=== PATIENT | male | born 1935 | race Caucasian/White ===

== ENCOUNTER → 2016-07-30 | Outpatient (CLI) | payer OTHER ==
[~2016-07-30] MED LIST: AMLO5TAB2 PO; AMOX1TAB42 PO; ASPI-232 PO; B-CO1CAP17 PO; B-COCAP2 PO; DIPH25CA65 PO; HYDR-5688 PO; HYDR1OIN EXT; INSDGIPEN SQ; INSUINJ4 SC; LIDO1CRE24 TOP; LIDO1CRE58 TOP; LPT/20 PO; METO-217 PO; MULT-190 PO; NVLGI/PEN SC; NVLGI/PEN SQ; OXYC-57 PO; PRED10TA PO; SODI650T8 PO; TPRSR/50 PO; ZNTT/150 PO
[2016-07-30 16:58] LABS: CHOLESTEROL/HDL RATIO 4.5; THYROID STIMULATING HORMONE 1.24 uIu/ml (0.300-4.500)
== END | disposition home or self-care (01) ==
LOC: C.LABBFT 16:27
PROVIDERS: ATTEND Nurse Practitioner Family
DX: E11.9 Type 2 diabetes mellitus without complications (principal)

== ENCOUNTER 2017-01-23 21:24 | Inpatient (IN) | payer OTHER ==
[~2017-01-23] VITALS: Ht 175.3 cm; Wt 102.9 kg
[~2017-01-23 21:24] MED LIST changes: -AMLO5TAB2 PO; -AMOX1TAB42 PO; -ASPI-232 PO; -B-CO1CAP17 PO; -DIPH25CA65 PO; -HYDR-5688 PO; -HYDR1OIN EXT; -INSDGIPEN SQ; -LIDO1CRE58 TOP; -METO-217 PO; -MULT-190 PO; -NVLGI/PEN SC; -NVLGI/PEN SQ; -PRED10TA PO; -SODI650T8 PO; -TPRSR/50 PO; -ZNTT/150 PO
[2017-01-23] MEDS ORDERED: ONDANSETRON 8 MG/54 ML D5W IV ONE (22:00)
[2017-01-23] MEDS: HYDROmorphone INJ 0.5 MG/0.5 ML SYR IV PRN (22:10)
[2017-01-23 23:00] LABS: BASO % 0.2 %; BASO ABS # 0.03 K/uL (0-0.2); COMPLETE YES; EOS % 0.3 %; HEMATOCRIT 31.5 % (42-52); IG% 0.4 %; LYMPH % 6.3 %; LYMPH ABS # 1.18 K/uL (1.2-3.4); MEAN CORPUSCULAR HEMOGLOBIN 30.4 pg (25-34); MEAN CORPUSCULAR HGB CONC 32.4 g/dl (32-36); MEAN PLATELET VOLUME 11.1 fL (7.4-10.4); MONO % 8.6 %; NEUT % 84.2 %; PLATELET COUNT 230 K/uL (130-400); RED BLOOD COUNT 3.35 M/uL (4.7-6.1); WHITE BLOOD COUNT 18.63 K/uL (4.8-10.8)
--- NOTE | 2017-01-23 23:04 | DIAGNOSTIC IMAGING REPORT ---
CT OF THE ABDOMEN AND PELVIS WITHOUT CONTRAST CLINICAL HISTORY: Dialysis pt with sudden RLQ abd pain, + guarding , rebound. COMPARISON STUDY: Renal ultrasound August 12, 2010. TECHNIQUE: Axial images of the abdomen and pelvis were obtained without IV contrast. Images were reviewed in the axial, sagittal, and coronal planes. FINDINGS: Evaluation of the abdomen and pelvis is suboptimal given the lack of IV and oral contrast. Note is made of branching gas adjacent to the IVC within the liver which is consistent with portal venous gas. This originates from the ascending colon. There is wall thickening with irregularity of the wall of the hepatic flexure of the colon shown image 179 of 451. There is adjacent venous gas shown on axial image 152 of 451. There is mild pericolonic infiltration. No abscess or free air is identified. Unenhanced images of the spleen and pancreas are unremarkable. There is a diverticulum of the second portion the duodenum. Bilateral renal lesions are suboptimally assessed on this exam. A 2.5 cm lesion arising from the upper pole of the right kidney measures just above water attenuation. This likely reflects a cyst. A few left renal lesions likely reflect cysts. There may be a hyperdense left renal cyst. There is no evidence for a bowel obstruction. There is extensive atherosclerotic plaque of the abdominal aorta. This is suboptimally assessed on unenhanced exam. No suspicious skeletal lesions are present. There is no lymphadenopathy. IMPRESSION: 1. Wall thickening of the ascending colon and hepatic flexure of the colon with small amount of associated mesenteric venous gas and portal venous gas. Apparent focal thinning of the wall of the hepatic flexure. Overall, these findings are suspicious for ischemic colitis. Diverticulitis could appear similar but is considered less likely. Surgical consultation is recommended. Findings discussed with Dr. Smith at time of dictation. 2. Extensive atherosclerotic plaque of the abdominal aorta, suboptimally assessed on this unenhanced exam. Electronically signed by: Henri Dorantes M.D. 01/23/2017 11:03 PM Dictated Date/Time: 01/23/2017 10:39 PM
[2017-01-23 23:17] LABS: ALT/SGPT 21 U/L (12-78); BLOOD UREA NITROGEN 20 mg/dl (7-18); BUN/CREATININE RATIO 5.6 (10-20); CALCIUM 8.5 mg/dl (8.5-10.1); CARBON DIOXIDE 31 mmol/L (21-32); CHLORIDE 101 mmol/L (98-107); GLUCOSE 168 mg/dl (70-99); SODIUM 139 mmol/L (136-145)
[2017-01-23 23:20] LABS: ALKALINE PHOSPHATASE 92 U/L (45-117); AST/SGOT 13 U/L (15-37)
[2017-01-24] MEDS ORDERED: PIPERACILLIN/TAZOBACTAM 4.5 GM/100ML D5W IV STA (00:54)
[2017-01-24] MEDS: HYDROmorphone INJ 0.5 MG/0.5 ML SYR IV PRN ×3 (01:18→15:43)
[2017-01-24] MEDS ORDERED: ACETAMINOPHEN 325 MG TAB PO PRN (02:15)
[2017-01-24] MEDS ORDERED: ONDANSETRON INJ 2 MG/ML 2 ML VIAL IV PRN (02:15)
[2017-01-24] MEDS ORDERED: DEXTROSE 50% 50 ML SYR IV PRN (02:15)
[2017-01-24] MEDS ORDERED: GLUCAGON FOR INJ 1 MG VIAL SQ PRN (02:15)
[2017-01-24] MEDS ORDERED: GLUCOSE 10 TABS/TUBE PO PRN (02:15)
[2017-01-24] MEDS ORDERED: GLUCOSE 40% GEL 15 GM TUBE PO PRN (02:15)
[2017-01-24] MEDS ORDERED: PIPERACILL/TAZOBAC CONSULT ACTIVE PRN (03:00)
[2017-01-24 03:19] VITALS: BP 176/96; PULSE 95; TEMP 36.9; O2SAT 95; Ht 175.3 cm; Wt 102.9 kg
--- NOTE | 2017-01-24 03:27 | EMERGENCY ROOM VISIT NOTE ---
History Report prepared by Devon: Amy Rae Under the Supervision of: Dr. Reji Smith M.D. First contact with patient: 21:28 Chief Complaint: ABDOMINAL PAIN Stated Complaint: AB PAIN Nursing Triage Summary: Pt started with abdominal pain/nausea since this afternoon. C/o right lower quadrant abdominal pain. Pt says he has been eating and drinking "on/off" the past few days. Pt had dialysis today History of Present Illness The patient is a 81 year old male who presents to the Emergency Room with complaints of constant right lower quadrant abdominal pain beginning 6 hours prior to arrival. He rates the pain at a 9/10. The patient states that he was not doing anything that would have prompted the pain. He reports that he had dialysis today. The patient also complains of back pain. He has a history of kidney stones and end stage renal disease. Pt denies LOC, headache, fevers, chills, diaphoresis, visual changes, neck pain, chest pain, breathing difficulties, nausea, vomiting, melena, hematochezia, urinary symptoms, numbness , weakness, lymphadenopathy, rash, or other complaints. Source of History: patient Onset: 6 hours prior to arrival Position: abdomen (RLQ) Symptom Intensity: rated at a 9/10 Timing: constant Associated Symptoms: + back pain Review of Systems See HPI for pertinent positives and negatives. A total of ten systems were reviewed and were otherwise negative. Past Medical & Surgical Medical Problems: (1) ESRD on hemodialysis (2) Ischemic colitis (3) No known allergies (4) No known health problems Family History No pertinent family history Social History Smoking Status: Current Every Day Smoker Alcohol Use: occasionally Marital Status: Current/Historical Medications Scheduled Amlodipine Besylate (Norvasc), 5 MG PO QPM Aspirin (Aspir-81), 81 MG PO QAM Atorvastatin (Atorvastatin Calcium), 20 MG PO HS Insulin Aspart (Novolog Flexpen), 18 UNITS SC QAM Insulin Aspart (Novolog Flexpen), 19 UNITS SQ LUNCH Insulin Aspart (Novolog Flexpen), 22 UNITS SQ QPM Insulin Glargine (Lantus Solostar), 35-45 UNITS SQ QPM Lidocaine-Prilocaine (Emla), 1 APPLN TOP UD Metoprolol Succinate (Toprol Xl), 50 MG PO QPM Ocuvite Preservision (Ocuvite Preservision), 1 TAB PO BID Sodium Bicarbonate (Antacid) (Sodium Bicarbonate), 1 TAB PO BIDM Vitamin B Cmplx/Vitc/Folic Ac (Nephrocaps), 1 CAP PO QPM Scheduled PRN Oxycodone/Acetaminophen 5MG/325MG (Percocet 5MG/325MG), 1-2 TABLETS PO HS PRN for Pain Allergies Coded Allergies: No Known Allergies (Unverified , 03/21/16) Physical Exam Vital Signs Date Time Temp Pulse Resp B/P (MAP) Pulse Ox O2 Delivery O2 Flow Rate FiO2 01/24/17 01:10 78 16 132/76 96 Room Air 01/23/17 23:19 75 18 104/56 95 Room Air 01/23/17 21:34 71 01/23/17 21:25 36.6 71 18 103/55 96 Room Air Physical Exam GENERAL: Awake, alert, well-appearing, in no distress HENT: Normocephalic, atraumatic. Oropharynx unremarkable. EYES: Normal conjunctiva. Sclera non-icteric. NECK: Supple. No nuchal rigidity. FROM. No JVD. RESPIRATORY: Clear to auscultation. CARDIAC: Regular rate, normal rhythm. Extremities warm and well perfused. Pulses equal. ABDOMEN: Soft, non-distended. Tenderness to RLQ. No rebound. Guarding to RLQ. No masses. Positive Rovsing's sign. RECTAL: Deferred. MUSCULOSKELETAL: Chest examination reveals no tenderness. The back is symmetrical on inspection without obvious abnormality. There is no CVA tenderness to palpation. No joint edema. LOWER EXTREMITIES: Calves are equal size bilaterally and non-tender. No edema. No discoloration. NEURO: Normal sensorium. No sensory or motor deficits noted. SKIN: No rash or jaundice noted. Medical Decision & Procedures ER Provider Diagnostic Interpretation: 2312: Radiology results as stated below per my review and radiologist interpretation CT OF THE ABDOMEN AND PELVIS WITHOUT CONTRAST CLINICAL HISTORY: Dialysis pt with sudden RLQ abd pain, + guarding , rebound. COMPARISON STUDY: Renal ultrasound August 12, 2010. TECHNIQUE: Axial images of the abdomen and pelvis were obtained without IV contrast. Images were reviewed in the axial, sagittal, and coronal planes. FINDINGS: Evaluation of the abdomen and pelvis is suboptimal given the lack of IV and oral contrast. Note is made of branching gas adjacent to the IVC within the liver which is consistent with portal venous gas. This originates from the ascending colon. There is wall thickening with irregularity of the wall of the hepatic flexure of the colon shown image 179 of 451. There is adjacent venous gas shown on axial image 152 of 451. There is mild pericolonic infiltration. No abscess or free air is identified. Unenhanced images of the spleen and pancreas are unremarkable. There is a diverticulum of the second portion the duodenum. Bilateral renal lesions are suboptimally assessed on this exam. A 2.5 cm lesion arising from the upper pole of the right kidney measures just above water attenuation. This likely reflects a cyst. A few left renal lesions likely reflect cysts. There may be a hyperdense left renal cyst. There is no evidence for a bowel obstruction. There is extensive atherosclerotic plaque of the abdominal aorta. This is suboptimally assessed on unenhanced exam. No suspicious skeletal lesions are present. There is no lymphadenopathy. IMPRESSION: 1. Wall thickening of the ascending colon and hepatic flexure of the colon with small amount of associated mesenteric venous gas and portal venous gas. Apparent focal thinning of the wall of the hepatic flexure. Overall, these findings are suspicious for ischemic colitis. Diverticulitis could appear similar but is considered less likely. Surgical consultation is recommended. Findings discussed with Dr. Smith at time of dictation. 2. Extensive atherosclerotic plaque of the abdominal aorta, suboptimally assessed on this unenhanced exam. Electronically signed by: Henri Dorantes M.D. 01/23/2017 11:03 PM Dictated Date/Time: 01/23/2017 10:39 PM Laboratory Results 01/23/17 22:49 Red Blood Count 3.35, Mean Corpuscular Volume 94.0, Mean Corpuscular Hemoglobin 30.4, Mean Corpuscular Hemoglobin Concent 32.4, Mean Platelet Volume 11.1, Neutrophils (%) (Auto) 84.2, Lymphocytes (%) (Auto) 6.3, Monocytes (%) (Auto) 8.6, Eosinophils (%) (Auto) 0.3, Basophils (%) (Auto) 0.2, Neutrophils # (Auto) 15.68, Lymphocytes # (Auto) 1.18, Monocytes # (Auto) 1.61, Eosinophils # (Auto) 0.05, Basophils # (Auto) 0.03 01/23/17 22:49 Test 01/23/17 22:49 01/23/17 23:17 White Blood Count 18.63 K/uL (4.8-10.8) Red Blood Count 3.35 M/uL (4.7-6.1) Hemoglobin 10.2 g/dL (14.0-18.0) Hematocrit 31.5 % (42-52) Mean Corpuscular Volume 94.0 fL (80-100) Mean Corpuscular Hemoglobin 30.4 pg (25-34) Mean Corpuscular Hemoglobin Concent 32.4 g/dl (32-36) Platelet Count 230 K/uL (130-400) Mean Platelet Volume 11.1 fL (7.4-10.4) Neutrophils (%) (Auto) 84.2 % Lymphocytes (%) (Auto) 6.3 % Monocytes (%) (Auto) 8.6 % Eosinophils (%) (Auto) 0.3 % Basophils (%) (Auto) 0.2 % Neutrophils # (Auto) 15.68 K/uL (1.4-6.5) Lymphocytes # (Auto) 1.18 K/uL (1.2-3.4) Monocytes # (Auto) 1.61 K/uL (0.11-0.59) Eosinophils # (Auto) 0.05 K/uL (0-0.5) Basophils # (Auto) 0.03 K/uL (0-0.2) RDW Standard Deviation 56.3 fL (36.4-46.3) RDW Coefficient of Variation 16.3 % (11.5-14.5) Immature Granulocyte % (Auto) 0.4 % Immature Granulocyte # (Auto) 0.08 K/uL (0.00-0.02) Anion Gap 7.0 mmol/L (3-11) Est Creatinine Clear Calc Drug Dose 20.0 ml/min Estimated GFR () 17.6 Estimated GFR (Non- 15.1 BUN/Creatinine Ratio 5.6 (10-20) Calcium Level 8.5 mg/dl (8.5-10.1) Total Bilirubin 0.3 mg/dl (0.2-1) Direct Bilirubin < 0.1 mg/dl (0-0.2) Aspartate Amino Transf (AST/SGOT) 13 U/L (15-37) Alanine Aminotransferase (ALT/SGPT) 21 U/L (12-78) Alkaline Phosphatase 92 U/L (45-117) Total Protein 7.0 gm/dl (6.4-8.2) Albumin 3.3 gm/dl (3.4-5.0) Lipase 198 U/L (73-393) Bedside Lactic Acid Venous 1.18 mmol/L (0.90-1.70) Laboratory results reviewed by me Medications Administered Medications (Trade) Dose Ordered Sig/Brennan Route Start Time Stop Time Status Last Admin Dose Admin Hydromorphone HCl (Dilaudid Inj) 0.5 mg Q20M PRN IV 01/23/17 22:00 02/06/17 21:59 01/24/17 01:18 0.5 MG Ondansetron HCl (Zofran 8mg Iv) 8 mg NOW ONCE IV 01/23/17 22:00 01/23/17 22:01 DC 01/23/17 22:09 8 MG Piperacillin Sod/ Tazobactam Sod (Zosyn Iv) 4.5 gm NOW STAT IV 01/24/17 00:54 01/24/17 00:55 DC 01/24/17 01:17 4.5 GM ECG Indication: abdominal pain Rate (beats per minute): 73 Rhythm: normal sinus Findings: nonspecific-ST abn, left axis deviation, other (nonspecific intraventricular block) ED Course 2146: The patient was evaluated in room A2. A complete history and physical exam was performed. 2199: Ordered Ondansetron HCl 8 mg IV, Dilaudid Inj 0.5 mg IV. 0: Discussed the patient's case with Dr. Dorantes. The patient will be evaluated for further treatment and disposition. 4: Ordered Zosyn Iv 4.5 gm IV. 0114: Discussed the patient's case with Dr. Rolon. The patient will be evaluated for further treatment and disposition. Medical Decision Medication Reconciliation: I attest that I have personally reviewed the patient' s current medication list Patient was found to have a slightly elevated blood pressure due to circumstances. I do not believe that the patient requires hypertension monitoring. Triage Nursing notes reviewed. The patient's presentation and history were concerning for abdominal pain. Etiologies such as appendicitis, diverticulitis, obstruction, inflammatory bowel disease, renal colic, PUD, biliary pathology, pancreatitis, mesenteric ischemia, aortic pathology, infections, genitourinary, UTI, perforated viscus, as well as others were entertained. The patient was evaluated. He was uncomfortable. He was given Zofran and Dilaudid. The patient had blood work obtained. She was sent for CT imaging. CT imaging was concerning for ischemic colitis as the likely diagnosis. I did discuss this with Dr. Dorantes radiology. The patient had a significant leukocytosis on CBC. His creatinine was elevated consistent with his end-stage renal disease. The patient was given a dose of IV Zosyn given the situation and the gas in the portal venous system. Consultation was made with internal medicine. Discussed the case withDr. Bay Rolon. He evaluated patient in the Emergency Room and admitted him for further treatment. Consults Time Called: [phone] Consulting Physician: Dr. Dorantes Returned Call: [phone] Discussed the patient's case. The patient will be evaluated for further treatment and disposition. Additional Consults: Time Called: 010 Consulted Physician: Dr. Rolon[facility] Returned Call: 011 Additional Comments: Discussed the patient's case. The patient will be evaluated for further treatment and disposition. Impression Primary Impression: Ischemic colitis Additional Impression: Right sided abdominal pain Scribe Attestation The scribe's documentation has been prepared under my direction and personally reviewed by me in its entirety. I confirm that the note above accurately reflects all work, treatment, procedures, and medical decision making performed by me. Departure Information Dispostion Being Evaluated By Hospitalist Referrals Reji Cameron M.D. (PCP) Patient Instructions My [facility] Problem Qualifiers
[2017-01-24] MEDS ORDERED: PNEUMOCOCCAL ADMINISTRATION CHARGE ONE (04:30)
[2017-01-24] MEDS ORDERED: PNEUMOCOCCAL POLYSACCHARIDES 25 MCG/0.5 ML VIAL/SYR IM. ONE (04:30)
--- NOTE | 2017-01-24 05:12 | History and Physical ---
History & Physical Date & Time of Service: Jan 24, 2017 at 04:57 Chief Complaint: Esrd On Hemodialysis,Ischemic Colitis Primary Care Physician: Reji Cameron M.D. History of Present Illness Source: patient The patient is a 81-year-old male who presents emergency department with constant right lower quadrant abdominal pain began about 6 hours prior to arrival. He did have dialysis earlier today. He has history of kidney stones. He did not have any different than for her food intake than usual. He has not had any blood in stool, any change in bowel frequency or character. He denies fevers or chills. He also reports that he has right lower back pain. Past Medical/Surgical History Medical Problems: (1) No known allergies Status: Chronic (2) No known health problems Status: Chronic Family History No pertinent family history Social History Smoking Status: Current Every Day Smoker Smokeless Tobacco Use: No Alcohol Use: none Drug Use: none Marital Status: Housing status: lives with family Occupational Status: retired Multi-Drug Resistant Organisms History of MDRO: No Allergies Coded Allergies: No Known Allergies (Unverified , 03/21/16) Home Medications Scheduled Amlodipine Besylate (Norvasc), 5 MG PO QPM Aspirin (Aspir-81), 81 MG PO QAM Atorvastatin (Atorvastatin Calcium), 20 MG PO HS Insulin Aspart (Novolog Flexpen), 18 UNITS SC QAM Insulin Aspart (Novolog Flexpen), 19 UNITS SQ LUNCH Insulin Aspart (Novolog Flexpen), 22 UNITS SQ QPM Insulin Glargine (Lantus Solostar), 35-45 UNITS SQ QPM Lidocaine-Prilocaine (Emla), 1 APPLN TOP UD Metoprolol Succinate (Toprol Xl), 50 MG PO QPM Ocuvite Preservision (Ocuvite Preservision), 1 TAB PO BID Sodium Bicarbonate (Antacid) (Sodium Bicarbonate), 1 TAB PO BIDM Vitamin B Cmplx/Vitc/Folic Ac (Nephrocaps), 1 CAP PO QPM Scheduled PRN Oxycodone/Acetaminophen 5MG/325MG (Percocet 5MG/325MG), 1-2 TABLETS PO HS PRN for Pain Review of Systems The patient denies chest pain, palpitations, shortness of breath, cough, lower extremity swelling, sore throat, fevers, chills, sweats, weight change, fatigue , nausea, vomiting, blood in urine or stool, dysuria, urinary frequency or urgency, lightheadedness, dizziness, headache, memory loss, rash, abnormal bruising or bleeding, imbalance, focal or generalized weakness, numbness or tingling in arms or legs, arthralgias or myalgias, night sweats, or allergy symptoms. The review of systems is otherwise negative other than for that already noted above, and at least 10 systems have been reviewed. Physical Exam Vital Signs Date Time Temp Pulse Resp B/P (MAP) Pulse Ox O2 Delivery O2 Flow Rate FiO2 01/24/17 03:19 36.9 95 20 176/96 95 Nasal Cannula 2.0 01/24/17 02:28 78 16 108/63 96 01/24/17 01:10 78 16 132/76 96 Room Air 01/23/17 23:19 75 18 104/56 95 Room Air 01/23/17 21:34 71 01/23/17 21:25 36.6 71 18 103/55 96 Room Air The patient is awake, well-developed and adequately nourished, alert and oriented 3, normocephalic and atraumatic, lying in bed and in no acute distress. HEENT--PERRL, EOMI, mucous membranes and oropharynx dry. Neck--supple, no JVD or bruits, thyroid normal, trachea midline, no adenopathy. Heart--normal S1 and S2, no extra beats, no murmurs, rubs or gallops. Lungs--clear bilaterally, diminished throughout, no respiratory distress, no accessory muscle use. Abdomen--normal bowel sounds and soft, tender right lower quadrant ,nondistended , no hernias or masses, no organomegaly. Extremities--no cyanosis, clubbing or edema. There are good distal pulses b/l. Dermatologic--normal skin turgor, normal color, warm and dry, no abnormal lymph nodes, no rash. Neurologic--cranial nerves II through XII grossly intact. Rheumatologic--normal range of motion, nontender, muscles and joints. Psychiatric--normal affect. Diagnostics Laboratory Results Results Past 24 Hours Test 01/23/17 22:49 01/23/17 23:17 Range/Units White Blood Count 18.63 4.8-10.8 K/uL Red Blood Count 3.35 4.7-6.1 M/uL Hemoglobin 10.2 14.0-18.0 g/dL Hematocrit 31.5 42-52 % Mean Corpuscular Volume 94.0 80-100 fL Mean Corpuscular Hemoglobin 30.4 25-34 pg Mean Corpuscular Hemoglobin Concent 32.4 32-36 g/dl Platelet Count 230 130-400 K/uL Mean Platelet Volume 11.1 7.4-10.4 fL Neutrophils (%) (Auto) 84.2 % Lymphocytes (%) (Auto) 6.3 % Monocytes (%) (Auto) 8.6 % Eosinophils (%) (Auto) 0.3 % Basophils (%) (Auto) 0.2 % Neutrophils # (Auto) 15.68 1.4-6.5 K/uL Lymphocytes # (Auto) 1.18 1.2-3.4 K/uL Monocytes # (Auto) 1.61 0.11-0.59 K/uL Eosinophils # (Auto) 0.05 0-0.5 K/uL Basophils # (Auto) 0.03 0-0.2 K/uL RDW Standard Deviation 56.3 36.4-46.3 fL RDW Coefficient of Variation 16.3 11.5-14.5 % Immature Granulocyte % (Auto) 0.4 % Immature Granulocyte # (Auto) 0.08 0.00-0.02 K/uL Sodium Level 139 136-145 mmol/L Potassium Level 4.0 3.5-5.1 mmol/L Chloride Level 101 98-107 mmol/L Carbon Dioxide Level 31 21-32 mmol/L Anion Gap 7.0 3-11 mmol/L Blood Urea Nitrogen 20 7-18 mg/dl Creatinine 3.60 0.60-1.40 mg/dl Est Creatinine Clear Calc Drug Dose 20.0 ml/min Estimated GFR () 17.6 Estimated GFR (Non- 15.1 BUN/Creatinine Ratio 5.6 10-20 Random Glucose 168 70-99 mg/dl Calcium Level 8.5 8.5-10.1 mg/dl Total Bilirubin 0.3 0.2-1 mg/dl Direct Bilirubin < 0.1 0-0.2 mg/dl Aspartate Amino Transf (AST/SGOT) 13 15-37 U/L Alanine Aminotransferase (ALT/SGPT) 21 12-78 U/L Alkaline Phosphatase 92 45-117 U/L Total Protein 7.0 6.4-8.2 gm/dl Albumin 3.3 3.4-5.0 gm/dl Lipase 198 73-393 U/L Bedside Lactic Acid Venous 1.18 0.90-1.70 mmol/L Diagnostic Radiology Patient Name: SADIQ JACKSON Unit Number: [id number] Dictated: 01/23/172238 Transcribed: 01/23/172238 ARMAAN Printed Date/Time: [~ rep prt dt]/[~ rep prt tm] [~ rep ct labl] - [~ rep ct ivnm] [facility] [place] [address] Dictated: 01/23/172238 Transcribed: 01/23/172238 JA Printed Date/Time: [~ rep prt dt]/[~ rep prt tm] [~ rep ct labl] - [~ rep ct ivnm] [~ rep ct add3]] CT OF THE ABDOMEN AND PELVIS WITHOUT CONTRAST CLINICAL HISTORY: Dialysis pt with sudden RLQ abd pain, + guarding , rebound. COMPARISON STUDY: Renal ultrasound August 12, 2010. TECHNIQUE: Axial images of the abdomen and pelvis were obtained without IV contrast. Images were reviewed in the axial, sagittal, and coronal planes. FINDINGS: Evaluation of the abdomen and pelvis is suboptimal given the lack of IV and oral contrast. Note is made of branching gas adjacent to the IVC within the liver which is consistent with portal venous gas. This originates from the ascending colon. There is wall thickening with irregularity of the wall of the hepatic flexure of the colon shown image 179 of 451. There is adjacent venous gas shown on axial image 152 of 451. There is mild pericolonic infiltration. No abscess or free air is identified. Unenhanced images of the spleen and pancreas are unremarkable. There is a diverticulum of the second portion the duodenum. Bilateral renal lesions are suboptimally assessed on this exam. A 2.5 cm lesion arising from the upper pole of the right kidney measures just above water attenuation. This likely reflects a cyst. A few left renal lesions likely reflect cysts. There may be a hyperdense left renal cyst. There is no evidence for a bowel obstruction. There is extensive atherosclerotic plaque of the abdominal aorta. This is suboptimally assessed on unenhanced exam. No suspicious skeletal lesions are present. There is no lymphadenopathy. IMPRESSION: 1. Wall thickening of the ascending colon and hepatic flexure of the colon with small amount of associated mesenteric venous gas and portal venous gas. Apparent focal thinning of the wall of the hepatic flexure. Overall, these findings are suspicious for ischemic colitis. Diverticulitis could appear similar but is considered less likely. Surgical consultation is recommended. Findings discussed with Dr. Smith at time of dictation. 2. Extensive atherosclerotic plaque of the abdominal aorta, suboptimally assessed on this unenhanced exam. Electronically signed by: Henri Dorantes M.D. 01/23/2017 11:03 PM Dictated Date/Time: 01/23/2017 10:39 PM The status of this report is Signed. Draft = Not yet reviewed or approved by Radiologist. Signed = Reviewed and approved by Radiologist. <AttendingPhy></AttendingPhy> <FamilyPhy>Reji Cameron M.D.</FamilyPhy> < PrimaryPhy>Reji Cameron M.D.</PrimaryPhy> <UnitNumber>[id number]</UnitNumber> < VisitNumber>[id number]</VisitNumber> <PatientName>SADIQ JACKSON</PatientName > <DateOfBirth>1935</DateOfBirth> <Location>[facility]</Location> <ServiceDate> 01/23/17</ServiceDate> <MNE>ESINDI</MNE> <OrderingPhy>Reji Smith MD</ OrderingPhy> <OrderingPhyMNE>f rep ord dr purdy</OrderingPhyMNE> <DictatingPhyMNE> f rep dict dr purdy</DictatingPhyMNE> <CCListMNE>f rep ct gurwinder</CCListMNE> < AdmittingPhyMNE>f pt admit dr purdy</AdmittingPhyMNE> <AttendingPhyMNE>f pt attend dr purdy</AttendingPhyMNE> <ConsultingPhyMNE>f pt consult dr purdy</ConsultingPhyMNE> <FamilyPhyMNE>f pt fam dr purdy</FamilyPhyMNE> <OtherPhyMNE>f pt other dr purdy</OtherPhyMNE> < PrimaryPhyMNE>f pt prim care dr purdy</PrimaryPhyMNE> <ReferringPhyMNE>f pt referring dr purdy</ReferringPhyMNE> Impression Assessment and Plan Ischemic colitis involving the ascending colon and hepatic flexure-- the patient be admitted to the medical floor. Order mesenteric Dopplers to assess circulation. He'll be kept nothing by mouth except medications and sips of water. Place on Zosyn 3.375 mg IV every 8 hours, Zofran 4 mg IV every 6 hours when necessary. Normal saline at 60 ML's per hour. End-stage renal disease on dialysis/hypertension-hold amlodipine 5 mg by mouth every afternoon. Continue metoprolol succinate 50 mg by mouth every afternoon , and sodium bicarbonate 1 tablet by mouth twice a day. Hold Nephrocaps and aspirin. Consult his sign builder Dr. Peraza. Dialysis days are Wednesday, and Wednesday. Diabetes mellitus--reduce Lantus from 45 units subcutaneous every afternoon and 10 units subcutaneous twice a day. Hold standing orders for NovoLog 18 a.m., 19 lunch and [address]. Place on Accu-Cheks before meals and at bedtime with NovoLog coverage per scale. Hyperlipidemia--hold atorvastatin 20 mg daily at bedtime. Level of Care Med/Surg Advanced Directives Existing Advance Directive: No Existing Living Will: No Existing Power of Commercial Makeup Artist: No Resuscitation Status FULL RESUSCITATION VTE Prophylaxis VTE Risk Assessment Done? Y/N: Yes Risk Level: Moderate Given or contraindicated: SCD's
[2017-01-24] MEDS ORDERED: SODIUM CHLORIDE 0.9% 1000ML 1,000 ML IV SCH (05:15)
[2017-01-24] MEDS: PIPERACILL/TAZOBAC IV 3.375 GM in DEXTROSE 5% 100ML 100 ML IV SCH ×2 (05:43→17:25)
[2017-01-24] MEDS: INSULIN ASPART 100 UNITS/ML 3 ML PEN SC SCH ×3 (06:30→18:00)
[2017-01-24 07:17] VITALS: BP 109/66; PULSE 86; TEMP 36.8; O2SAT 97
[2017-01-24] MEDS ORDERED: SODIUM BICARBONATE 650 MG TAB PO SCH (08:00)
[2017-01-24] MEDS: CEROVITE ADV FORMULA TAB PO SCH ×2 (08:07→21:15)
[2017-01-24] MEDS ORDERED: PHARMACY GLYCEMIC MGMT CONSULT SCH (08:26)
--- NOTE | 2017-01-24 08:26 | DIAGNOSTIC IMAGING REPORT ---
DOPPLER ULTRASOUND OF THE MESENTERIC VASCULATURE CLINICAL HISTORY: Ischemic colitis. COMPARISON STUDY: Abdominal CT dated 01/23/2017. The abdominal aorta, celiac artery, and superior mesenteric artery are not visualized due to extensive overlying bowel gas. The examination is nondiagnostic. IMPRESSION: Nondiagnostic examination. See above. Electronically signed by: Otis Ruby M.D. 01/24/2017 8:25 AM Dictated Date/Time: 01/24/2017 8:24 AM
[2017-01-24] MEDS: INSULIN GLARGINE SOLOSTAR 100 UNITS/ML 3 ML PEN SQ SCH ×2 (08:36→21:19)
--- NOTE | 2017-01-24 08:39 | Pharmacy Progress Note ---
Glycemic Control Intl Consult Date of Service Jan 24, 2017. Scope Glycemic Pharmacist consulted by Dr Yeung on 01/24/17 for glycemic control and to write orders per [facility] inpatient glycemic control protocol Objective Weight (Kilograms): 95.100 Accuchecks BSG (last 24hrs): Test 01/23/17 22:49 01/24/17 08:01 Random Glucose 168 mg/dl (70-99) Bedside Glucose 148 mg/dl (70-99) Laboratory Data (last 24hrs) Test 01/23/17 22:49 Anion Gap 7.0 mmol/L BUN/Creatinine Ratio 5.6 Blood Urea Nitrogen 20 mg/dl Creatinine 3.60 mg/dl Potassium Level 4.0 mmol/L Sodium Level 139 mmol/L White Blood Count 18.63 K/uL Red Blood Count 3.35 M/uL Hemoglobin 10.2 g/dL Hematocrit 31.5 % Mean Corpuscular Volume 94.0 fL Mean Corpuscular Hemoglobin 30.4 pg Mean Corpuscular Hemoglobin Concent 32.4 g/dl Platelet Count 230 K/uL Mean Platelet Volume 11.1 fL Neutrophils (%) (Auto) 84.2 % Lymphocytes (%) (Auto) 6.3 % Monocytes (%) (Auto) 8.6 % Eosinophils (%) (Auto) 0.3 % Basophils (%) (Auto) 0.2 % Neutrophils # (Auto) 15.68 K/uL Lymphocytes # (Auto) 1.18 K/uL Monocytes # (Auto) 1.61 K/uL Eosinophils # (Auto) 0.05 K/uL Basophils # (Auto) 0.03 K/uL Recent Pertinent Medications Outpatient Anti-diabetic Regimen: * Novolog 18 units with breakfast, 19 units with lunch, 22 units with supper * A1c = 6.3 % 12/16/15 - new a1c ordered Risk Factors for Insulin Resistance: * Infection: Zosyn * Diet: NPO Assessment & Plan ASSESSMENT: * 81 year old 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 BSG 148mg/dL at this time, will start patient on a reduced dose of Lantus for NPO status and CF and CR for when patient starts eating. * ADA & AACE recommend a goal blood sugar range 140-180 mg/dl for the majority of critically ill & non-critically ill patients. However, more stringent targets may be selected in individual cases. Will utilize more stringent goal of 110-140mg/dl based on patient age & comorbidities. Additionally, tighter glycemic control is warranted to facilitate wound/infection healing. PLAN FOR INPATIENT GLYCEMIC CONTROL: * Basal insulin with LANTUS 10 units SQ BID * Correctional Insulin with NOVOLOG per scale ACHS or Q6hrs while NPO * Goal Range: Low 110 mg/dL - High 140 mg/dL * Correction Factor: 30 mg/dL/unit * Nutritional / Prandial insulin per carb ratio of 1 unit per 10 grams CHO consumed * Please note that the plan above was derived based on current level of insulin resistance and hospital stress. These recommendations are appropriate for inpatient admission only. Plan of care upon discharge will need to be reassessed to avoid potential outpatient hypo/hyperglycemia. Thank you.
[2017-01-24] MEDS ORDERED: NURSING VERBAL MED ORDER ONE ×2 (10:15→16:45)
--- NOTE | 2017-01-24 11:16 | Nephrology Consultation ---
Nephrology Consultation Date & Providers Date of Consultation: Jan 24, 2017. Primary Care Provider: Reji Cameron M.D. Referring Provider: Reason for Consultation Provide inpatient HD and assist with the medical management of this patient w/ ESRD History of Present Illness Mr. Galeano is a 81 year old white male who is seen at the request of Dr. Rolon to provide in patient HD and assist w/ his medical management. 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 His dialysis prescription is 4 hours F-180NR 2K 2Ca EDW 106kg. Patient has a functioning L upper arm AVF. Mr. Galeano as last dialyzed on Wednesday without complication. Later that evening he developed RLQ abdominal pain. He presented to the ED where CT revealed thickened ascending colon, mesenteric and portal gas suggestive of ischemic colitis. He has been admitted to the medicine service for antibiotic therapy, pain management and surgical consultation. Past Medical/Surgical History Medical: # ESRD due to diabetic nephropathy - on HD since 12/08 # AODM # HTN # PVD - diffuse atherosclerosis of the abdominal aorta Surgical: # L upper arm AVF Allergies Coded Allergies: No Known Allergies (Unverified , 03/21/16) Inpatient Medications Current Inpatient Medications Medications (Trade) Dose Ordered Sig/Brennan Route Start Time Stop Time Status Last Admin Dose Admin Acetaminophen (Tylenol Tab) 650 mg Q4H PRN PO 01/24/17 02:15 02/23/17 02:14 Insulin Glargine (Lantus Solostar Pen) 10 units BID SQ 01/24/17 09:00 02/23/17 08:59 01/24/17 08:36 10 UNITS Metoprolol Succinate (Toprol Xl Tab) 50 mg QPM PO 01/24/17 21:00 02/23/17 20:59 Multivitamins/ Minerals (Multivitamin W/ Minerals Tab) 1 tab BID PO 01/24/17 09:00 02/23/17 08:59 01/24/17 08:07 1 TAB Sodium Bicarbonate (Sodium Bicarbonate Tab) 650 mg BIDM PO 01/24/17 08:00 02/23/17 07:59 01/24/17 08:07 650 MG Piperacillin Sod/ Tazobactam Sod 3.375 gm/Dextrose 115 ml @ 28.75 mls/ hr Q12@0600,1800 IV 01/24/17 06:00 02/03/17 05:59 01/24/17 05:43 28.75 MLS/HR Ondansetron HCl (Zofran Inj) 4 mg Q6H PRN IV 01/24/17 02:15 02/23/17 02:14 Insulin Aspart (novoLOG ASPART) SLIDING SCALE If C... ACHS SC 01/24/17 06:30 02/23/17 06:59 Glucose (Glucose 40% Gel) UD PRN PO 01/24/17 02:15 02/23/17 02:14 Glucose (Glucose Chew Tab) 1 tabs UD PRN PO 01/24/17 02:15 02/23/17 02:14 Dextrose (Dextrose 50% 50ML Syringe) 50 ml UD PRN IV 01/24/17 02:15 02/23/17 02:14 Glucagon (Glucagon Inj) 1 mg UD PRN SQ 01/24/17 02:15 02/23/17 02:14 Piperacillin Sod/ Tazobactam Sod (Consult) 1 ea UD PRN N/A 01/24/17 03:00 02/23/17 02:59 Sodium Chloride 1,000 ml @ 60 mls/hr [id number] IV 01/24/17 05:15 02/23/17 05:14 01/24/17 05:43 60 MLS/HR Miscellaneous Information (Consult Glycemic Management Pharmacy) 1 ea UD N/A 01/24/17 08:26 02/23/17 08:25 Hydromorphone HCl (Dilaudid Inj) 0.25 mg Q3H PRN IV 01/24/17 10:30 02/07/17 10:29 01/24/17 10:40 0.25 MG Family History No pertinent family history Negative for CKD / ESRD Social History Smoking Status: Current Every Day Smoker Smokeless Tobacco Use: No Alcohol Use: none Drug Use: none Marital Status: Housing Status: lives with family Occupation: retired . has Alzheimers and requires home health nursing. Patient is retired. Current smoker Review of Systems Constitutional: No fever Respiratory: No cough Cardiovascular: No chest pain Abdomen: + pain Genitourinary - Male: No hematuria A complete review of systems was performed. Pertinent positives are noted above. All other systems are negative. Physical Exam Date Time Temp Pulse Resp B/P (MAP) Pulse Ox O2 Delivery O2 Flow Rate FiO2 01/24/17 08:00 Nasal Cannula 2.0 01/24/17 07:17 36.8 86 20 109/66 (80) 97 2.0 01/24/17 03:19 36.9 95 20 176/96 95 Nasal Cannula 2.0 01/24/17 02:28 78 16 108/63 96 01/24/17 01:10 78 16 132/76 96 Room Air 01/23/17 23:19 75 18 104/56 95 Room Air 01/23/17 21:34 71 01/23/17 21:25 36.6 71 18 103/55 96 Room Air General Appearance: + mild distress Head: normocephalic, atraumatic Eyes: PERRL, EOMI Neck: no adenopathy Respiratory/Chest: lungs clear, no respiratory distress Cardiovascular: regular rate, rhythm Abdomen/GI: + tenderness (R upper quadrant. Hypoactive bowel sounds) Extremities/Musculoskelatal: no calf tenderness, no pedal edema, + pertinent finding (L upper arm AVF + bruit) Neurologic/Psych: alert, oriented x 3 Laboratory Results Last 24 Hours Test 01/23/17 22:49 01/23/17 23:17 01/24/17 08:01 White Blood Count 18.63 K/uL Red Blood Count 3.35 M/uL Hemoglobin 10.2 g/dL Hematocrit 31.5 % Mean Corpuscular Volume 94.0 fL Mean Corpuscular Hemoglobin 30.4 pg Mean Corpuscular Hemoglobin Concent 32.4 g/dl Platelet Count 230 K/uL Mean Platelet Volume 11.1 fL Neutrophils (%) (Auto) 84.2 % Lymphocytes (%) (Auto) 6.3 % Monocytes (%) (Auto) 8.6 % Eosinophils (%) (Auto) 0.3 % Basophils (%) (Auto) 0.2 % Neutrophils # (Auto) 15.68 K/uL Lymphocytes # (Auto) 1.18 K/uL Monocytes # (Auto) 1.61 K/uL Eosinophils # (Auto) 0.05 K/uL Basophils # (Auto) 0.03 K/uL RDW Standard Deviation 56.3 fL RDW Coefficient of Variation 16.3 % Immature Granulocyte % (Auto) 0.4 % Immature Granulocyte # (Auto) 0.08 K/uL Sodium Level 139 mmol/L Potassium Level 4.0 mmol/L Chloride Level 101 mmol/L Carbon Dioxide Level 31 mmol/L Anion Gap 7.0 mmol/L Blood Urea Nitrogen 20 mg/dl Creatinine 3.60 mg/dl Est Creatinine Clear Calc Drug Dose 20.0 ml/min Estimated GFR () 17.6 Estimated GFR (Non- 15.1 BUN/Creatinine Ratio 5.6 Random Glucose 168 mg/dl Calcium Level 8.5 mg/dl Total Bilirubin 0.3 mg/dl Direct Bilirubin < 0.1 mg/dl Aspartate Amino Transf (AST/SGOT) 13 U/L Alanine Aminotransferase (ALT/SGPT) 21 U/L Alkaline Phosphatase 92 U/L Total Protein 7.0 gm/dl Albumin 3.3 gm/dl Lipase 198 U/L Bedside Lactic Acid Venous 1.18 mmol/L Bedside Glucose 148 mg/dl Impression (1) ESRD on hemodialysis (2) Right sided abdominal pain (3) Ischemic colitis (4) Hypertension (5) Diabetes mellitus Recommendations END STAGE RENAL DISEASE: -- Patient was last dialyzed 01/23/17 -- Volume status & electrolyte balance are acceptable at this time. No acute indication for HD today. Will reassess in am. -- Heplock IVF -- Stop po NaHCO3 HYPERTENSION: -- Blood pressure remains acceptable. Continue current medical regimen ANEMIA: -- Will provide EDUARDO w/ dialysis treatments GI: -- Possible ischemic colitis. Await surgical evaluation and recommendations ID: -- IV Zosyn as per primary service and ux consultant
[2017-01-24 14:57] VITALS: BP 116/66; PULSE 86; TEMP 36.8; O2SAT 96
--- NOTE | 2017-01-24 15:13 | Family Medicine Progress Note ---
Progress Note Date of Service Jan 24, 2017. Subjective Pt evaluation today including: conversation w/ patient, physical exam, chart review, lab review, review of studies, review of inpatient medication list Pain: abdominal pain 02/01 PO Intake: NPO Voiding: no voiding problems NO acute events. Patient continues to complain of abdominal pain with minimal improvement. He denies N/V or change in stool or hematochezia Constitutional: No fever, No chills, No weakness Respiratory: No cough, No sputum, No shortness of breath Abdomen: + pain, No nausea, No vomiting, No constipation, No GI bleeding Male : No dysuria, No urinary frequency Neurologic: No weakness, No numbness/tingling Skin: No rash, No itch Medications Current Inpatient Medications Medications (Trade) Dose Ordered Sig/Brennan Route Start Time Stop Time Status Last Admin Dose Admin Acetaminophen (Tylenol Tab) 650 mg Q4H PRN PO 01/24/17 02:15 02/23/17 02:14 Insulin Glargine (Lantus Solostar Pen) 10 units BID SQ 01/24/17 09:00 02/23/17 08:59 01/24/17 08:36 10 UNITS Metoprolol Succinate (Toprol Xl Tab) 50 mg QPM PO 01/24/17 21:00 02/23/17 20:59 Multivitamins/ Minerals (Multivitamin W/ Minerals Tab) 1 tab BID PO 01/24/17 09:00 02/23/17 08:59 01/24/17 08:07 1 TAB Piperacillin Sod/ Tazobactam Sod 3.375 gm/Dextrose 115 ml @ 28.75 mls/ hr Q12@0600,1800 IV 01/24/17 06:00 02/03/17 05:59 01/24/17 05:43 28.75 MLS/HR Ondansetron HCl (Zofran Inj) 4 mg Q6H PRN IV 01/24/17 02:15 02/23/17 02:14 Insulin Aspart (novoLOG ASPART) SLIDING SCALE If C... ACHS SC 01/24/17 06:30 02/23/17 06:59 Glucose (Glucose 40% Gel) UD PRN PO 01/24/17 02:15 02/23/17 02:14 Glucose (Glucose Chew Tab) 1 tabs UD PRN PO 01/24/17 02:15 02/23/17 02:14 Dextrose (Dextrose 50% 50ML Syringe) 50 ml UD PRN IV 01/24/17 02:15 02/23/17 02:14 Glucagon (Glucagon Inj) 1 mg UD PRN SQ 01/24/17 02:15 02/23/17 02:14 Piperacillin Sod/ Tazobactam Sod (Consult) 1 ea UD PRN N/A 01/24/17 03:00 02/23/17 02:59 Miscellaneous Information (Consult Glycemic Management Pharmacy) 1 ea UD N/A 01/24/17 08:26 02/23/17 08:25 Hydromorphone HCl (Dilaudid Inj) 0.25 mg Q3H PRN IV 01/24/17 10:30 02/07/17 10:29 01/24/17 10:40 0.25 MG Objective Vital Signs Date Time Temp Pulse Resp B/P (MAP) Pulse Ox O2 Delivery O2 Flow Rate FiO2 01/24/17 14:57 36.8 86 20 116/66 (83) 96 Room Air 01/24/17 08:00 Nasal Cannula 2.0 01/24/17 07:17 36.8 86 20 109/66 (80) 97 2.0 01/24/17 03:19 36.9 95 20 176/96 95 Nasal Cannula 2.0 01/24/17 02:28 78 16 108/63 96 01/24/17 01:10 78 16 132/76 96 Room Air 01/23/17 23:19 75 18 104/56 95 Room Air 01/23/17 21:34 71 01/23/17 21:25 36.6 71 18 103/55 96 Room Air Physical Exam General Appearance: WD/WN, + mild distress Eyes: PERRL, EOMI Neck: supple, no adenopathy, trachea midline Respiratory/Chest: lungs clear, normal breath sounds, no respiratory distress Cardiovascular: regular rate, rhythm, no murmur Abdomen: normal bowel sounds, soft, + pertinent finding (RLQ TTP, no rigidity , no rebound, no guarding) Extremities: no pedal edema, no calf tenderness Neurologic/Psychiatric: alert, normal mood/affect, oriented x 3 Skin: warm/dry, no rash Laboratory Results Results Past 24 Hours Test 01/23/17 22:49 01/23/17 23:17 01/24/17 08:01 01/24/17 11:27 Range/Units White Blood Count 18.63 4.8-10.8 K/uL Red Blood Count 3.35 4.7-6.1 M/uL Hemoglobin 10.2 14.0-18.0 g/dL Hematocrit 31.5 42-52 % Mean Corpuscular Volume 94.0 80-100 fL Mean Corpuscular Hemoglobin 30.4 25-34 pg Mean Corpuscular Hemoglobin Concent 32.4 32-36 g/dl Platelet Count 230 130-400 K/uL Mean Platelet Volume 11.1 7.4-10.4 fL Neutrophils (%) (Auto) 84.2 % Lymphocytes (%) (Auto) 6.3 % Monocytes (%) (Auto) 8.6 % Eosinophils (%) (Auto) 0.3 % Basophils (%) (Auto) 0.2 % Neutrophils # (Auto) 15.68 1.4-6.5 K/uL Lymphocytes # (Auto) 1.18 1.2-3.4 K/uL Monocytes # (Auto) 1.61 0.11-0.59 K/uL Eosinophils # (Auto) 0.05 0-0.5 K/uL Basophils # (Auto) 0.03 0-0.2 K/uL RDW Standard Deviation 56.3 36.4-46.3 fL RDW Coefficient of Variation 16.3 11.5-14.5 % Immature Granulocyte % (Auto) 0.4 % Immature Granulocyte # (Auto) 0.08 0.00-0.02 K/uL Sodium Level 139 136-145 mmol/L Potassium Level 4.0 3.5-5.1 mmol/L Chloride Level 101 98-107 mmol/L Carbon Dioxide Level 31 21-32 mmol/L Anion Gap 7.0 3-11 mmol/L Blood Urea Nitrogen 20 7-18 mg/dl Creatinine 3.60 0.60-1.40 mg/dl Est Creatinine Clear Calc Drug Dose 20.0 ml/min Estimated GFR () 17.6 Estimated GFR (Non- 15.1 BUN/Creatinine Ratio 5.6 10-20 Random Glucose 168 70-99 mg/dl Calcium Level 8.5 8.5-10.1 mg/dl Total Bilirubin 0.3 0.2-1 mg/dl Direct Bilirubin < 0.1 0-0.2 mg/dl Aspartate Amino Transf (AST/SGOT) 13 15-37 U/L Alanine Aminotransferase (ALT/SGPT) 21 12-78 U/L Alkaline Phosphatase 92 45-117 U/L Total Protein 7.0 6.4-8.2 gm/dl Albumin 3.3 3.4-5.0 gm/dl Lipase 198 73-393 U/L Bedside Lactic Acid Venous 1.18 0.90-1.70 mmol/L Bedside Glucose 148 137 70-99 mg/dl Assessment and Plan 81 yo M w/ hx of ESRD on Dialysis , Hx of Kidney Stones, DM, HTN, presented with RLQ pain, RL back pain, afebrile on arrival with Leukocytosis( 18.63), CT findings consistent with Ischemic Colitis. Ischemic Colitis - persistent RLQ abdominal pain - CT Abdomen/Pelvis: -Wall thickening of the ascending colon and hepatic flexure -associated mesenteric venous gas and portal venous gas -thinning of the wall of the hepatic flexure -Findings consistent with ischemic colitis - c/w Pain Control - c/w IV Zosyn - General Surgery Consutled, F/u report ESRD on Dialysis - Cr 3.6 within baseline range - Nephrology on board - last dialyzed 01/23/17 - NaHCO3 stopped per Nephrology Anemia - H/H: 10.2/31.5 - likely secondary to ESRD - will get Erythropoiesis stimulating agent with Dialysis DM - glycemic consult HTN - BP vontrolled - c/w Metoprolol 50 qpm HLD - Statin remains held DVT Prophylaxis -SCD Continued [facility] stay due to: multiple IV medications needed Discharge planning: home Resident Tracking Resident Involvement: Resident Care Provided Care Provided: Adult Hospital Medicine
[2017-01-24 16:00] VITALS: O2SAT 96
--- NOTE | 2017-01-24 18:19 | Surgery Consultation ---
Consultation Date of Consultation: Jan 24, 2017. Attending Physician: Cuca Alexander M.D. Reason for Consultation: Ischemic colitis History of Present Illness The rest to see this 81-year-old male who presented with a complaint of abdominal pain mostly on the right side. He stated that over the last few months he has been having intermittent abdominal discomfort but never this severe. The pain became more continuous and more severe located on the right side. There was no left-sided pain. He had some nausea but did not vomit. He had no fever or chills. This episode of severe pain began 5-6 hours after hemodialysis and began yesterday. He has not had any diarrhea or constipation. He's had no melena or hematochezia. He denies dysuria and hematuria. He has never had previous abdominal surgery. 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 HTN PSH: Knee surgery Family History No pertinent family history Social History Smoking Status: Current Every Day Smoker Smokeless Tobacco Use: No Alcohol Use: occasionally Drug Use: none Marital Status: Occupation Status: retired Allergies Coded Allergies: No Known Allergies (Unverified , 03/21/16) Home Medications Scheduled Amlodipine Besylate (Norvasc), 5 MG PO QPM Aspirin (Aspir-81), 81 MG PO QAM Atorvastatin (Atorvastatin Calcium), 20 MG PO HS Insulin Aspart (Novolog Flexpen), 18 UNITS SC QAM Insulin Aspart (Novolog Flexpen), 19 UNITS SQ LUNCH Insulin Aspart (Novolog Flexpen), 22 UNITS SQ QPM Insulin Glargine (Lantus Solostar), 35-45 UNITS SQ QPM Lidocaine-Prilocaine (Emla), 1 APPLN TOP UD Metoprolol Succinate (Toprol Xl), 50 MG PO QPM Ocuvite Preservision (Ocuvite Preservision), 1 TAB PO BID Sodium Bicarbonate (Antacid) (Sodium Bicarbonate), 1 TAB PO BIDM Vitamin B Cmplx/Vitc/Folic Ac (Nephrocaps), 1 CAP PO QPM Scheduled PRN Oxycodone/Acetaminophen 5MG/325MG (Percocet 5MG/325MG), 1-2 TABLETS PO HS PRN for Pain Current Inpatient Medications Current Inpatient Medications Medications (Trade) Dose Ordered Sig/Brennan Route Start Time Stop Time Status Last Admin Dose Admin Acetaminophen (Tylenol Tab) 650 mg Q4H PRN PO 01/24/17 02:15 02/23/17 02:14 Insulin Glargine (Lantus Solostar Pen) 10 units BID SQ 01/24/17 09:00 02/23/17 08:59 01/24/17 08:36 10 UNITS Metoprolol Succinate (Toprol Xl Tab) 50 mg QPM PO 01/24/17 21:00 02/23/17 20:59 Multivitamins/ Minerals (Multivitamin W/ Minerals Tab) 1 tab BID PO 01/24/17 09:00 02/23/17 08:59 01/24/17 08:07 1 TAB Piperacillin Sod/ Tazobactam Sod 3.375 gm/Dextrose 115 ml @ 28.75 mls/ hr Q12@0600,1800 IV 01/24/17 06:00 02/03/17 05:59 01/24/17 17:25 28.75 MLS/HR Ondansetron HCl (Zofran Inj) 4 mg Q6H PRN IV 01/24/17 02:15 02/23/17 02:14 Glucose (Glucose 40% Gel) UD PRN PO 01/24/17 02:15 02/23/17 02:14 Glucose (Glucose Chew Tab) 1 tabs UD PRN PO 01/24/17 02:15 02/23/17 02:14 Dextrose (Dextrose 50% 50ML Syringe) 50 ml UD PRN IV 01/24/17 02:15 02/23/17 02:14 Glucagon (Glucagon Inj) 1 mg UD PRN SQ 01/24/17 02:15 02/23/17 02:14 Piperacillin Sod/ Tazobactam Sod (Consult) 1 ea UD PRN N/A 01/24/17 03:00 02/23/17 02:59 Miscellaneous Information (Consult Glycemic Management Pharmacy) 1 ea UD N/A 01/24/17 08:26 02/23/17 08:25 Hydromorphone HCl (Dilaudid Inj) 0.25 mg Q3H PRN IV 01/24/17 10:30 02/07/17 10:29 01/24/17 15:43 0.25 MG Insulin Aspart (novoLOG ASPART) SLIDING SCALE If C... Q6 SC 01/24/17 18:00 02/23/17 17:59 Review of Systems Constitutional: No fever, No chills Respiratory: No cough Cardiovascular: No chest pain Abdomen: + problem reported (as per HPI) Genitourinary - Male: + problem reported (as per HPI) Integumentary: + rash Physical Exam Date Time Temp Pulse Resp B/P (MAP) Pulse Ox O2 Delivery O2 Flow Rate FiO2 01/24/17 16:00 96 Nasal Cannula 2.0 01/24/17 14:57 36.8 86 20 116/66 (83) 96 Room Air 01/24/17 08:00 Nasal Cannula 2.0 01/24/17 07:17 36.8 86 20 109/66 (80) 97 2.0 01/24/17 03:19 36.9 95 20 176/96 95 Nasal Cannula 2.0 01/24/17 02:28 78 16 108/63 96 01/24/17 01:10 78 16 132/76 96 Room Air 01/23/17 23:19 75 18 104/56 95 Room Air 01/23/17 21:34 71 01/23/17 21:25 36.6 71 18 103/55 96 Room Air General Appearance: no apparent distress, + obese Head: normocephalic Neck: supple, no adenopathy Respiratory/Chest: chest non-tender, lungs clear Cardiovascular: regular rate, rhythm Abdomen/GI: normal bowel sounds, soft, + tenderness (right side to moderate palpation, no diffuse peritonitis) Back: normal inspection Laboratory Results Last 24 Hours Test 01/23/17 22:49 01/23/17 23:17 01/24/17 08:01 01/24/17 11:27 White Blood Count 18.63 K/uL Red Blood Count 3.35 M/uL Hemoglobin 10.2 g/dL Hematocrit 31.5 % Mean Corpuscular Volume 94.0 fL Mean Corpuscular Hemoglobin 30.4 pg Mean Corpuscular Hemoglobin Concent 32.4 g/dl Platelet Count 230 K/uL Mean Platelet Volume 11.1 fL Neutrophils (%) (Auto) 84.2 % Lymphocytes (%) (Auto) 6.3 % Monocytes (%) (Auto) 8.6 % Eosinophils (%) (Auto) 0.3 % Basophils (%) (Auto) 0.2 % Neutrophils # (Auto) 15.68 K/uL Lymphocytes # (Auto) 1.18 K/uL Monocytes # (Auto) 1.61 K/uL Eosinophils # (Auto) 0.05 K/uL Basophils # (Auto) 0.03 K/uL RDW Standard Deviation 56.3 fL RDW Coefficient of Variation 16.3 % Immature Granulocyte % (Auto) 0.4 % Immature Granulocyte # (Auto) 0.08 K/uL Sodium Level 139 mmol/L Potassium Level 4.0 mmol/L Chloride Level 101 mmol/L Carbon Dioxide Level 31 mmol/L Anion Gap 7.0 mmol/L Blood Urea Nitrogen 20 mg/dl Creatinine 3.60 mg/dl Est Creatinine Clear Calc Drug Dose 20.0 ml/min Estimated GFR () 17.6 Estimated GFR (Non- 15.1 BUN/Creatinine Ratio 5.6 Random Glucose 168 mg/dl Calcium Level 8.5 mg/dl Total Bilirubin 0.3 mg/dl Direct Bilirubin < 0.1 mg/dl Aspartate Amino Transf (AST/SGOT) 13 U/L Alanine Aminotransferase (ALT/SGPT) 21 U/L Alkaline Phosphatase 92 U/L Total Protein 7.0 gm/dl Albumin 3.3 gm/dl Lipase 198 U/L Bedside Lactic Acid Venous 1.18 mmol/L Bedside Glucose 148 mg/dl 137 mg/dl Test 01/24/17 17:59 Bedside Glucose 105 mg/dl CT OF THE ABDOMEN AND PELVIS WITHOUT CONTRAST CLINICAL HISTORY: Dialysis pt with sudden RLQ abd pain, + guarding , rebound. COMPARISON STUDY: Renal ultrasound August 12, 2010. TECHNIQUE: Axial images of the abdomen and pelvis were obtained without IV contrast. Images were reviewed in the axial, sagittal, and coronal planes. FINDINGS: Evaluation of the abdomen and pelvis is suboptimal given the lack of IV and oral contrast. Note is made of branching gas adjacent to the IVC within the liver which is consistent with portal venous gas. This originates from the ascending colon. There is wall thickening with irregularity of the wall of the hepatic flexure of the colon shown image 179 of 451. There is adjacent venous gas shown on axial image 152 of 451. There is mild pericolonic infiltration. No abscess or free air is identified. Unenhanced images of the spleen and pancreas are unremarkable. There is a diverticulum of the second portion the duodenum. Bilateral renal lesions are suboptimally assessed on this exam. A 2.5 cm lesion arising from the upper pole of the right kidney measures just above water attenuation. This likely reflects a cyst. A few left renal lesions likely reflect cysts. There may be a hyperdense left renal cyst. There is no evidence for a bowel obstruction. There is extensive atherosclerotic plaque of the abdominal aorta. This is suboptimally assessed on unenhanced exam. No suspicious skeletal lesions are present. There is no lymphadenopathy. IMPRESSION: 1. Wall thickening of the ascending colon and hepatic flexure of the colon with small amount of associated mesenteric venous gas and portal venous gas. Apparent focal thinning of the wall of the hepatic flexure. Overall, these findings are suspicious for ischemic colitis. Diverticulitis could appear similar but is considered less likely. Surgical consultation is recommended. Findings discussed with Dr. Smith at time of dictation. 2. Extensive atherosclerotic plaque of the abdominal aorta, suboptimally assessed on this unenhanced exam. DOPPLER ULTRASOUND OF THE MESENTERIC VASCULATURE CLINICAL HISTORY: Ischemic colitis. COMPARISON STUDY: Abdominal CT dated 01/23/2017. The abdominal aorta, celiac artery, and superior mesenteric artery are not visualized due to extensive overlying bowel gas. The examination is nondiagnostic. IMPRESSION: Nondiagnostic examination. See above. Assessment & Plan This patient has right-sided abdominal pain with thickening of the wall. This is most likely colitis. With the portal air which is minimal and some mesenteric venous air ischemic is the most likely etiology. He has no evidence of peritonitis. Agree with conservative management at first to include IV antibiotics. We'll continue with bowel rest as well. We'll continue to follow with you. Thank you for this patient and participate in his care.
[2017-01-24] MEDS: METOPROLOL SUCC 50MG EXT REL TAB PO SCH (21:14)
[2017-01-24 23:01] VITALS: BP 124/76; PULSE 86; TEMP 36.9; O2SAT 93
[2017-01-25 00:05] VITALS: O2SAT 96
[2017-01-25] MEDS: PIPERACILL/TAZOBAC IV 3.375 GM in DEXTROSE 5% 100ML 100 ML IV SCH ×2 (05:50→17:59)
[2017-01-25] MEDS: INSULIN ASPART 100 UNITS/ML 3 ML PEN SC SCH ×4 (06:00→18:00)
[2017-01-25 07:39] VITALS: BP 106/61; PULSE 80; TEMP 36.8; O2SAT 98
[2017-01-25 08:03] LABS: BUN/CREATININE RATIO 6.3 (10-20); CALCIUM 9.3 mg/dl (8.5-10.1); CREATININE 6.1 mg/dl (0.60-1.40); MAGNESIUM 2.5 mg/dl (1.8-2.4); POTASSIUM 4.6 mmol/L (3.5-5.1)
[2017-01-25 08:58] LABS: PROTHROMBIN TIME (PATIENT) 10.9 SECONDS (9.0-12.0)
[2017-01-25] MEDS: CEROVITE ADV FORMULA TAB PO SCH ×2 (09:09→20:14)
[2017-01-25 09:10] LABS: BASO % 0.1 %; BASO ABS # 0.03 K/uL (0-0.2); HEMATOCRIT 29.9 % (42-52); IG% 0.3 %; LYMPH % 7.8 %; LYMPH ABS # 1.64 K/uL (1.2-3.4); MEAN CELL VOLUME 95.2 fL (80-100); MEAN CORPUSCULAR HEMOGLOBIN 30.3 pg (25-34); MEAN PLATELET VOLUME 11.8 fL (7.4-10.4); MONO % 8.7 %; NEUT % 82.1 %; PLATELET COUNT 192 K/uL (130-400); RED BLOOD COUNT 3.14 M/uL (4.7-6.1)
[2017-01-25 09:20] LABS: COMPLETE YES; MEAN CORPUSCULAR HGB CONC 31.8 g/dl (32-36)
--- NOTE | 2017-01-25 10:39 | Nephrology Progress Note ---
Nephrology Progress Note Date of Service Jan 25, 2017. Chief Complaint Follow-up for end-stage renal disease on hemodialysis. Subjective Ed was seen and examined in his room this morning. He still has right lower quadrant pain however reports having bowel movement yesterday. No nausea or vomiting. He has been NPO and feeling hungry. Blood pressure has been stable. Electrolyte acceptable. Review of Systems A complete review of systems was performed. Pertinent positives are noted above. All other systems are negative. Vital Signs Last 8 Hrs Date Time Temp Pulse Resp B/P (MAP) Pulse Ox O2 Delivery O2 Flow Rate FiO2 01/25/17 07:41 Nasal Cannula 4.0 01/25/17 07:39 36.8 80 20 106/61 (76) 98 Nasal Cannula 2.0 Last Recorded Weight Weight (Kilograms): 95.900 Physical Exam GENERAL: Elderly male, AAA x 3, pleasant, healthy-appearing, not in any distress. NECK: Supple, no JVD. RESPIRATORY: Normal breathing efforts, no accessory muscle use, clear to auscultation bilaterally, no wheezes or rales. CARDIOVASCULAR: S1, S2 normal, rate rhythm regular. ABDOMEN: Significant tenderness in right lower quadrant, positive bowel sound , no guarding or rigidity. EXTREMITY: No lower extremity edema NEURO: speech fluent. PSYCHIATRY: Normal mood and judgment Family History No pertinent family history Negative for CKD / ESRD Social History Smokeless Tobacco Use: No Alcohol Use: occasionally Drug Use: none Marital Status: Housing Status: lives with family Occupation: retired . has Alzheimers and requires home health nursing. Patient is retired. Current smoker Laboratory Results Past 24 Hours 01/25/17 08:46 Red Blood Count 3.14, Mean Corpuscular Volume 95.2, Mean Corpuscular Hemoglobin 30.3, Mean Corpuscular Hemoglobin Concent 31.8, Mean Platelet Volume 11.8, Neutrophils (%) (Auto) 82.1, Lymphocytes (%) (Auto) 7.8, Monocytes (%) (Auto) 8.7, Eosinophils (%) (Auto) 1.0, Basophils (%) (Auto) 0.1, Neutrophils # (Auto) 17.22, Lymphocytes # (Auto) 1.64, Monocytes # (Auto) 1.83, Eosinophils # (Auto) 0.21, Basophils # (Auto) 0.03 01/25/17 06:51 Test 01/24/17 11:27 01/24/17 17:59 01/24/17 23:40 01/25/17 06:07 Bedside Glucose 137 mg/dl (70-99) 105 mg/dl (70-99) 98 mg/dl (70-99) 82 mg/dl (70-99) Test 01/25/17 06:51 01/25/17 08:18 01/25/17 08:46 Anion Gap 7.0 mmol/L (3-11) Est Creatinine Clear Calc Drug Dose 11.2 ml/min Estimated GFR () 9.3 Estimated GFR (Non- 8.0 BUN/Creatinine Ratio 6.3 (10-20) Calcium Level 9.3 mg/dl (8.5-10.1) Magnesium Level 2.5 mg/dl (1.8-2.4) Prothrombin Time 10.9 SECONDS (9.0-12.0) Prothromb Time International Ratio 1.0 (0.9-1.1) White Blood Count 21.00 K/uL (4.8-10.8) Red Blood Count 3.14 M/uL (4.7-6.1) Hemoglobin 9.5 g/dL (14.0-18.0) Hematocrit 29.9 % (42-52) Mean Corpuscular Volume 95.2 fL (80-100) Mean Corpuscular Hemoglobin 30.3 pg (25-34) Mean Corpuscular Hemoglobin Concent 31.8 g/dl (32-36) Platelet Count 192 K/uL (130-400) Mean Platelet Volume 11.8 fL (7.4-10.4) Neutrophils (%) (Auto) 82.1 % Lymphocytes (%) (Auto) 7.8 % Monocytes (%) (Auto) 8.7 % Eosinophils (%) (Auto) 1.0 % Basophils (%) (Auto) 0.1 % Neutrophils # (Auto) 17.22 K/uL (1.4-6.5) Lymphocytes # (Auto) 1.64 K/uL (1.2-3.4) Monocytes # (Auto) 1.83 K/uL (0.11-0.59) Eosinophils # (Auto) 0.21 K/uL (0-0.5) Basophils # (Auto) 0.03 K/uL (0-0.2) RDW Standard Deviation 57.0 fL (36.4-46.3) RDW Coefficient of Variation 16.3 % (11.5-14.5) Immature Granulocyte % (Auto) 0.3 % Immature Granulocyte # (Auto) 0.07 K/uL (0.00-0.02) Allergies Coded Allergies: No Known Allergies (Unverified , 03/21/16) Medications Current Inpatient Medications Medications (Trade) Dose Ordered Sig/Brennan Route Start Time Stop Time Status Last Admin Dose Admin Acetaminophen (Tylenol Tab) 650 mg Q4H PRN PO 01/24/17 02:15 02/23/17 02:14 Insulin Glargine (Lantus Solostar Pen) 10 units BID SQ 01/24/17 09:00 02/23/17 08:59 Future Hold 01/24/17 21:19 10 UNITS Metoprolol Succinate (Toprol Xl Tab) 50 mg QPM PO 01/24/17 21:00 02/23/17 20:59 01/24/17 21:14 50 MG Multivitamins/ Minerals (Multivitamin W/ Minerals Tab) 1 tab BID PO 01/24/17 09:00 02/23/17 08:59 01/25/17 09:09 1 TAB Piperacillin Sod/ Tazobactam Sod 3.375 gm/Dextrose 115 ml @ 28.75 mls/ hr Q12@0600,1800 IV 01/24/17 06:00 02/03/17 05:59 01/25/17 05:50 28.75 MLS/HR Ondansetron HCl (Zofran Inj) 4 mg Q6H PRN IV 01/24/17 02:15 02/23/17 02:14 Glucose (Glucose 40% Gel) UD PRN PO 01/24/17 02:15 02/23/17 02:14 Glucose (Glucose Chew Tab) 1 tabs UD PRN PO 01/24/17 02:15 02/23/17 02:14 Dextrose (Dextrose 50% 50ML Syringe) 50 ml UD PRN IV 01/24/17 02:15 02/23/17 02:14 Glucagon (Glucagon Inj) 1 mg UD PRN SQ 01/24/17 02:15 02/23/17 02:14 Piperacillin Sod/ Tazobactam Sod (Consult) 1 ea UD PRN N/A 01/24/17 03:00 02/23/17 02:59 Miscellaneous Information (Consult Glycemic Management Pharmacy) 1 ea UD N/A 01/24/17 08:26 02/23/17 08:25 Hydromorphone HCl (Dilaudid Inj) 0.25 mg Q3H PRN IV 01/24/17 10:30 02/07/17 10:29 01/24/17 15:43 0.25 MG Insulin Aspart (novoLOG ASPART) SLIDING SCALE If C... Q6 SC 01/24/17 18:00 02/23/17 17:59 Impression (1) ESRD on hemodialysis (2) Right sided abdominal pain (3) Ischemic colitis (4) Hypertension (5) Diabetes mellitus Recommendations --currently blood pressure, electrolyte and volume status stable, no indication for dialysis. --Plan for next dialysis tomorrow as his regular schedule, cautious with IV fluid -- dose medications for GFR less than 10 --will give EDUARDO with hemodialysis tomorrow --continues to have significant right lower quadrant abdominal pain however abdomen otherwise benign.
[2017-01-25 11:35] LABS: ESTIMATED AVERAGE GLUCOSE 166 mg/dl; HA1C FLAG Normal (Normal)
--- NOTE | 2017-01-25 12:04 | Pharmacy Progress Note ---
Glycemic Control Progress Note Date of Service Jan 25, 2017. Scope Glycemic Pharmacist consulted for glycemic control to write orders per [facility] inpatient glycemic control protocol. Objective Accuchecks BSG (last 24hrs): Test 01/24/17 17:59 01/24/17 23:40 01/25/17 06:07 01/25/17 06:51 Bedside Glucose 105 mg/dl (70-99) 98 mg/dl (70-99) 82 mg/dl (70-99) Random Glucose 84 mg/dl (70-99) Test 01/25/17 11:39 Bedside Glucose 75 mg/dl (70-99) HbA1c: Test 01/25/17 06:51 Hemoglobin A1c 7.4 % (4.5-5.6) H Recent Pertinent Medications Outpatient Anti-diabetic Regimen: * Novolog 18 units with breakfast, 19 units with lunch, 22 units with supper * Lantus 35-45 units daily * A1c = 7.4 % 01/25/17 Risk Factors for Insulin Resistance: * Infection: Zosyn * Diet: NPO Assessment & Plan ASSESSMENT: * 81 year old 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 * Pt seen by general surgery today, pt to have bowel rest and IV antibiotics for colitis at this time. * Patient received 20 units yesterday, blood sugars at goal and trending down, fasting 89mg/dL today. I will hold Lantus at this time and restart when BSG > 140mg/dL to prevent hypoglycemia while NPO. Patient is managed on TDD of about 90-110 units/day as outpatient, so patient will likely need some amount of basal while NPO. * Note: SCr spiked to 6.1mg/dL today. * ADA & AACE recommend a goal blood sugar range 140-180 mg/dl for the majority of critically ill & non-critically ill patients. However, more stringent targets may be selected in individual cases. Will utilize more stringent goal of 110-140mg/dl based on patient age & comorbidities. Additionally, tighter glycemic control is warranted to facilitate wound/infection healing. PLAN FOR INPATIENT GLYCEMIC CONTROL: * HOLD - Basal insulin with LANTUS 10 units SQ BID, resume when BSG > 140mg/dL * Correctional Insulin with NOVOLOG per scale ACHS or Q6hrs while NPO * Goal Range: Low 110 mg/dL - High 140 mg/dL * Correction Factor: 30 mg/dL/unit * Nutritional / Prandial insulin per carb ratio of 1 unit per 10 grams CHO consumed * Please note that the plan above was derived based on current level of insulin resistance and hospital stress. These recommendations are appropriate for inpatient admission only. Plan of care upon discharge will need to be reassessed to avoid potential outpatient hypo/hyperglycemia. Thank you.
--- NOTE | 2017-01-25 13:19 | Surgery Progress Note ---
Surgery Progress Note Date of Service Jan 25, 2017. Subjective Post OP Day: HD # 1 "not feeling so well today" Right lower abdominal pain, no change no bowel movement, little flatus No nausea or vomiting "Starving" Objective Vital Signs: Date Time Temp Pulse Resp B/P (MAP) Pulse Ox O2 Delivery O2 Flow Rate FiO2 01/25/17 07:41 Nasal Cannula 4.0 01/25/17 07:39 36.8 80 20 106/61 (76) 98 Nasal Cannula 2.0 01/25/17 00:05 96 Nasal Cannula 2.0 01/24/17 23:01 36.9 86 18 124/76 (92) 93 Nasal Cannula 2.0 01/24/17 16:00 96 Nasal Cannula 2.0 01/24/17 14:57 36.8 86 20 116/66 (83) 96 Room Air General Appearance: WD/WN, no apparent distress, + obese Head: normocephalic, atraumatic Neck: trachea midline Respiratory/Chest: no respiratory distress, no accessory muscle use Abdomen: non distended, soft, + guarding (Right lower quadrant), + rebound, + tenderness (RLQ on light and deep palpation, no peritonitis, or rigidity) Extremities: no pedal edema Laboratory Results: Results Past 24 Hours Test 01/24/17 17:59 01/24/17 23:40 01/25/17 06:07 01/25/17 06:51 Range/Units Bedside Glucose 105 98 82 70-99 mg/dl Sodium Level 140 136-145 mmol/L Potassium Level 4.6 3.5-5.1 mmol/L Chloride Level 102 98-107 mmol/L Carbon Dioxide Level 31 21-32 mmol/L Anion Gap 7.0 3-11 mmol/L Blood Urea Nitrogen 39 7-18 mg/dl Creatinine 6.10 0.60-1.40 mg/dl Est Creatinine Clear Calc Drug Dose 11.2 ml/min Estimated GFR () 9.3 Estimated GFR (Non- 8.0 BUN/Creatinine Ratio 6.3 10-20 Random Glucose 84 70-99 mg/dl Estimated Average Glucose 166 mg/dl Hemoglobin A1c 7.4 4.5-5.6 % Calcium Level 9.3 8.5-10.1 mg/dl Magnesium Level 2.5 1.8-2.4 mg/dl Test 01/25/17 08:18 7/3/17 08:46 01/25/17 11:39 Range/Units Prothrombin Time 10.9 9.0-12.0 SECONDS Prothromb Time International Ratio 1.0 0.9-1.1 White Blood Count 21.00 4.8-10.8 K/uL Red Blood Count 3.14 4.7-6.1 M/uL Hemoglobin 9.5 14.0-18.0 g/dL Hematocrit 29.9 42-52 % Mean Corpuscular Volume 95.2 80-100 fL Mean Corpuscular Hemoglobin 30.3 25-34 pg Mean Corpuscular Hemoglobin Concent 31.8 32-36 g/dl Platelet Count 192 130-400 K/uL Mean Platelet Volume 11.8 7.4-10.4 fL Neutrophils (%) (Auto) 82.1 % Lymphocytes (%) (Auto) 7.8 % Monocytes (%) (Auto) 8.7 % Eosinophils (%) (Auto) 1.0 % Basophils (%) (Auto) 0.1 % Neutrophils # (Auto) 17.22 1.4-6.5 K/uL Lymphocytes # (Auto) 1.64 1.2-3.4 K/uL Monocytes # (Auto) 1.83 0.11-0.59 K/uL Eosinophils # (Auto) 0.21 0-0.5 K/uL Basophils # (Auto) 0.03 0-0.2 K/uL RDW Standard Deviation 57.0 36.4-46.3 fL RDW Coefficient of Variation 16.3 11.5-14.5 % Immature Granulocyte % (Auto) 0.3 % Immature Granulocyte # (Auto) 0.07 0.00-0.02 K/uL Bedside Glucose 75 70-99 mg/dl Assessment & Plan Colitis of right colon and Hepatic Flexure - Ischemic? - Vitals stable - Increase in leukocytosis to 21k - Abdomen is soft, no peritonitis. There is guarding and tenderness in RLQ but improved since yesterdays examination Plan: Continue NPO except Ice chips Continue IV fluids and IV antibiotics Will have dialysis tomorrow repeat am labs, trend wbc continue current medical management will continue to follow Dr. Akers has seen and examined patient, agrees with above.
[2017-01-25 15:53] VITALS: BP 120/65; PULSE 77; TEMP 36.8; O2SAT 92
--- NOTE | 2017-01-25 16:31 | Family Medicine Progress Note ---
Progress Note Date of Service Jan 25, 2017. Subjective Pt evaluation today including: conversation w/ patient, physical exam, chart review, conversation w/ workforce consultant, review of inpatient medication list Pain: moderate PO Intake: npo Patient still experiencing diffuse abdominal pain Family at the bedside, answered all questions they had with regards to diagnosis Patient reminded of plan, patient says he is very thirsty but we explained we need to allow bowel to rest Constitutional: No fever, No chills, No sweats Respiratory: No cough, No sputum, No wheezing, No shortness of breath Cardiovascular: No chest pain, No orthopnea, No edema, No palpitations Abdomen: + pain, No nausea, No vomiting Musculoskeletal: No joint pain, No muscle pain, No swelling Medications Current Inpatient Medications Medications (Trade) Dose Ordered Sig/Brennan Route Start Time Stop Time Status Last Admin Dose Admin Acetaminophen (Tylenol Tab) 650 mg Q4H PRN PO 01/24/17 02:15 02/23/17 02:14 Metoprolol Succinate (Toprol Xl Tab) 50 mg QPM PO 01/24/17 21:00 02/23/17 20:59 01/24/17 21:14 50 MG Multivitamins/ Minerals (Multivitamin W/ Minerals Tab) 1 tab BID PO 01/24/17 09:00 02/23/17 08:59 01/25/17 09:09 1 TAB Piperacillin Sod/ Tazobactam Sod 3.375 gm/Dextrose 115 ml @ 28.75 mls/ hr Q12@0600,1800 IV 01/24/17 06:00 02/03/17 05:59 01/25/17 05:50 28.75 MLS/HR Ondansetron HCl (Zofran Inj) 4 mg Q6H PRN IV 01/24/17 02:15 02/23/17 02:14 Glucose (Glucose 40% Gel) UD PRN PO 01/24/17 02:15 02/23/17 02:14 Glucose (Glucose Chew Tab) 1 tabs UD PRN PO 01/24/17 02:15 02/23/17 02:14 Dextrose (Dextrose 50% 50ML Syringe) 50 ml UD PRN IV 01/24/17 02:15 02/23/17 02:14 Glucagon (Glucagon Inj) 1 mg UD PRN SQ 01/24/17 02:15 02/23/17 02:14 Piperacillin Sod/ Tazobactam Sod (Consult) 1 ea UD PRN N/A 01/24/17 03:00 02/23/17 02:59 Miscellaneous Information (Consult Glycemic Management Pharmacy) 1 ea UD N/A 01/24/17 08:26 02/23/17 08:25 Hydromorphone HCl (Dilaudid Inj) 0.25 mg Q3H PRN IV 01/24/17 10:30 02/07/17 10:29 01/24/17 15:43 0.25 MG Insulin Aspart (novoLOG ASPART) SLIDING SCALE If C... Q6 SC 01/24/17 18:00 02/23/17 17:59 Insulin Glargine (Lantus Solostar Pen) BID SQ 01/25/17 21:00 02/24/17 20:59 Objective Vital Signs Date Time Temp Pulse Resp B/P (MAP) Pulse Ox O2 Delivery O2 Flow Rate FiO2 01/25/17 15:53 36.8 77 20 120/65 (83) 92 Room Air 01/25/17 07:41 Nasal Cannula 4.0 01/25/17 07:39 36.8 80 20 106/61 (76) 98 Nasal Cannula 2.0 01/25/17 00:05 96 Nasal Cannula 2.0 01/24/17 23:01 36.9 86 18 124/76 (92) 93 Nasal Cannula 2.0 Physical Exam General Appearance: WD/WN, no apparent distress Neck: no JVD, + pertinent finding (bilateral carotid bruits) Respiratory/Chest: no respiratory distress, no accessory muscle use, + rhonchi (diffuse rhonchi bilaterally) Cardiovascular: + systolic murmur (3/6 systolic murmur), + irregularly irregular Abdomen: normal bowel sounds, no organomegaly, no pulsatile mass, + tenderness (diffuse throughout), + pertinent finding (no guarding or rigidity) Extremities: non-tender, normal inspection, no calf tenderness, normal capillary refill, + pertinent finding (weak peripheral pulses) Neurologic/Psychiatric: no motor/sensory deficits, normal mood/affect, oriented x 3 Skin: normal color, warm/dry, no rash Laboratory Results Results Past 24 Hours Test 01/24/17 17:59 01/24/17 23:40 01/25/17 06:07 01/25/17 06:51 Range/Units Bedside Glucose 105 98 82 70-99 mg/dl Sodium Level 140 136-145 mmol/L Potassium Level 4.6 3.5-5.1 mmol/L Chloride Level 102 98-107 mmol/L Carbon Dioxide Level 31 21-32 mmol/L Anion Gap 7.0 3-11 mmol/L Blood Urea Nitrogen 39 7-18 mg/dl Creatinine 6.10 0.60-1.40 mg/dl Est Creatinine Clear Calc Drug Dose 11.2 ml/min Estimated GFR () 9.3 Estimated GFR (Non- 8.0 BUN/Creatinine Ratio 6.3 10-20 Random Glucose 84 70-99 mg/dl Estimated Average Glucose 166 mg/dl Hemoglobin A1c 7.4 4.5-5.6 % Calcium Level 9.3 8.5-10.1 mg/dl Magnesium Level 2.5 1.8-2.4 mg/dl Test 01/25/17 08:18 01/25/17 08:46 01/25/17 11:39 Range/Units Prothrombin Time 10.9 9.0-12.0 SECONDS Prothromb Time International Ratio 1.0 0.9-1.1 White Blood Count 21.00 4.8-10.8 K/uL Red Blood Count 3.14 4.7-6.1 M/uL Hemoglobin 9.5 14.0-18.0 g/dL Hematocrit 29.9 42-52 % Mean Corpuscular Volume 95.2 80-100 fL Mean Corpuscular Hemoglobin 30.3 25-34 pg Mean Corpuscular Hemoglobin Concent 31.8 32-36 g/dl Platelet Count 192 130-400 K/uL Mean Platelet Volume 11.8 7.4-10.4 fL Neutrophils (%) (Auto) 82.1 % Lymphocytes (%) (Auto) 7.8 % Monocytes (%) (Auto) 8.7 % Eosinophils (%) (Auto) 1.0 % Basophils (%) (Auto) 0.1 % Neutrophils # (Auto) 17.22 1.4-6.5 K/uL Lymphocytes # (Auto) 1.64 1.2-3.4 K/uL Monocytes # (Auto) 1.83 0.11-0.59 K/uL Eosinophils # (Auto) 0.21 0-0.5 K/uL Basophils # (Auto) 0.03 0-0.2 K/uL RDW Standard Deviation 57.0 36.4-46.3 fL RDW Coefficient of Variation 16.3 11.5-14.5 % Immature Granulocyte % (Auto) 0.3 % Immature Granulocyte # (Auto) 0.07 0.00-0.02 K/uL Bedside Glucose 75 70-99 mg/dl Assessment and Plan 81 yo M w/ hx of ESRD on Dialysis , Hx of Kidney Stones, DM, HTN, presented with RLQ pain, RL back pain, afebrile on arrival with Leukocytosis( 18.63), CT findings consistent with Ischemic Colitis. Ischemic Colitis - persistent RLQ abdominal pain - CT Abdomen/Pelvis: -Wall thickening of the ascending colon and hepatic flexure -associated mesenteric venous gas and portal venous gas -thinning of the wall of the hepatic flexure -Findings consistent with ischemic colitis - Pain Control w/IV dilaudid - IV Zosyn - General Surgery Consulted and suggest conservative management for now, will continue to monitor ESRD on Dialysis - patient went for dialysis today, creat was 6.1, will repeat tomorrow - Nephrology on board - NaHCO3 stopped per Nephrology Anemia - hgb 9.5 - likely secondary to ESRD - will get Erythropoiesis stimulating agent with Dialysis DM - glycemic consult HTN - BP controlled - c/w Metoprolol 50 qpm HLD - Statin remains held DVT Prophylaxis -SCD Resident Physician Supervision Note: I was present with PGY2 Dr. Aba Gonzalez during the history and exam. I discussed the case with the resident and agree with the findings and plan as documented in the note. Any exceptions or clarifications are listed here: patient with regular rhythm on examination. Pt w/ ongoing abdominal pain. No vomiting. Most of his pain is right-sided. VSS afebrile gen - nad neck - no JVD, bruit on left heart - RRR, s1, s2, 2/6 systolic murmur RUSB lungs - mild diffuse wheezes b/l abd - soft, tender RLQ and LLQ, BS+, no peritoneal signs, no HSM ext - no edema labs - WBC 21,000 Hb 9.5 Cr 6.1 A/P: Suspected ischemic colitis - no significant improvement w/ conservative Rx. Cont IV abx, NPO status; general surgery continues to follow and recs appreciated. Repeat CBC in am. T2DM - pharmacy managing. ESRD on HD - nephrology consultation appreciated. For HD in am. Documented By: Mitul Cronin MD Continued [facility] stay due to: multiple IV medications needed
[2017-01-25 20:13] VITALS: BP 134/70; PULSE 80
[2017-01-25] MEDS: INSULIN GLARGINE SOLOSTAR 100 UNITS/ML 3 ML PEN SQ SCH (20:15)
[2017-01-25] MEDS: METOPROLOL SUCC 50MG EXT REL TAB PO SCH (20:15)
[2017-01-25 23:37] VITALS: BP 134/70; PULSE 77; TEMP 36.6; O2SAT 95
[2017-01-26] VITALS (17 sets, daily range): BP systolic 94–139; BP diastolic 52–77; PULSE 70–79; TEMP 36.6–36.9; O2SAT 94–96
[2017-01-26] MEDS: PIPERACILL/TAZOBAC IV 3.375 GM in DEXTROSE 5% 100ML 100 ML IV SCH ×2 (05:38→17:46)
[2017-01-26] MEDS: INSULIN ASPART 100 UNITS/ML 3 ML PEN SC SCH ×4 (06:00→18:00)
[2017-01-26 06:32] LABS: BASO % 0.3 %; BASO ABS # 0.05 K/uL (0-0.2); COMPLETE YES; EOS % 1.7 %; HEMATOCRIT 30.4 % (42-52); IG% 0.3 %; LYMPH % 8.2 %; MEAN CELL VOLUME 92.7 fL (80-100); MEAN CORPUSCULAR HEMOGLOBIN 29.3 pg (25-34); MEAN CORPUSCULAR HGB CONC 31.6 g/dl (32-36); MEAN PLATELET VOLUME 11.7 fL (7.4-10.4); MONO % 8.9 %; NEUT % 80.6 %; PLATELET COUNT 235 K/uL (130-400); RED BLOOD COUNT 3.28 M/uL (4.7-6.1); WHITE BLOOD COUNT 18.27 K/uL (4.8-10.8)
[2017-01-26 07:19] LABS: BUN/CREATININE RATIO 6.7 (10-20); CALCIUM 9.3 mg/dl (8.5-10.1); CREATININE 7.3 mg/dl (0.60-1.40); POTASSIUM 4.7 mmol/L (3.5-5.1)
[2017-01-26] MEDS: INSULIN GLARGINE SOLOSTAR 100 UNITS/ML 3 ML PEN SQ SCH ×2 (08:17→21:00)
[2017-01-26] MEDS: CEROVITE ADV FORMULA TAB PO SCH ×2 (08:19→21:04)
--- NOTE | 2017-01-26 11:59 | Surgery Progress Note ---
Surgery Progress Note Date of Service Jan 26, 2017. Subjective Pt wants to eat. States that as we are "not doing anything for him, just give him a gun so he can shoot himself". Still with abdominal pain. He is difficult to question - unclear if pain is worse. No vomiting. Continues to have bowel movements. Objective Vital Signs: Date Time Temp Pulse Resp B/P (MAP) Pulse Ox O2 Delivery O2 Flow Rate FiO2 01/26/17 11:00 76 98/55 01/26/17 10:45 78 94/57 01/26/17 10:30 78 108/52 01/26/17 10:15 75 115/58 01/26/17 10:01 73 128/64 01/26/17 09:45 78 134/60 01/26/17 09:30 78 139/66 01/26/17 09:15 77 122/66 01/26/17 09:08 36.8 75 133/62 (85) 01/26/17 09:00 73 126/77 01/26/17 08:56 72 136/60 01/26/17 08:00 96 Room Air 4.0 01/26/17 00:05 Room Air 01/25/17 23:37 36.6 77 18 134/70 (91) 95 Room Air 01/25/17 20:13 80 134/70 (91) 01/25/17 20:05 Room Air 01/25/17 16:00 Room Air 01/25/17 15:53 36.8 77 20 120/65 (83) 92 Room Air Head: normocephalic Respiratory/Chest: no accessory muscle use Cardiovascular: regular rate, rhythm Abdomen: normal bowel sounds, non distended, soft, + tenderness (in RLQ with guarding) Laboratory Results: Results Past 24 Hours Test 01/25/17 16:01 01/25/17 18:04 01/25/17 20:11 01/26/17 00:05 Range/Units Bedside Glucose 62 86 86 82 70-99 mg/dl Test 01/26/17 05:55 01/26/17 06:34 Range/Units White Blood Count 18.27 4.8-10.8 K/uL Red Blood Count 3.28 4.7-6.1 M/uL Hemoglobin 9.6 14.0-18.0 g/dL Hematocrit 30.4 42-52 % Mean Corpuscular Volume 92.7 80-100 fL Mean Corpuscular Hemoglobin 29.3 25-34 pg Mean Corpuscular Hemoglobin Concent 31.6 32-36 g/dl Platelet Count 235 130-400 K/uL Mean Platelet Volume 11.7 7.4-10.4 fL Neutrophils (%) (Auto) 80.6 % Lymphocytes (%) (Auto) 8.2 % Monocytes (%) (Auto) 8.9 % Eosinophils (%) (Auto) 1.7 % Basophils (%) (Auto) 0.3 % Neutrophils # (Auto) 14.73 1.4-6.5 K/uL Lymphocytes # (Auto) 1.50 1.2-3.4 K/uL Monocytes # (Auto) 1.62 0.11-0.59 K/uL Eosinophils # (Auto) 0.31 0-0.5 K/uL Basophils # (Auto) 0.05 0-0.2 K/uL RDW Standard Deviation 54.3 36.4-46.3 fL RDW Coefficient of Variation 16.0 11.5-14.5 % Immature Granulocyte % (Auto) 0.3 % Immature Granulocyte # (Auto) 0.06 0.00-0.02 K/uL Sodium Level 139 136-145 mmol/L Potassium Level 4.7 3.5-5.1 mmol/L Chloride Level 104 98-107 mmol/L Carbon Dioxide Level 24 21-32 mmol/L Anion Gap 11.0 3-11 mmol/L Blood Urea Nitrogen 49 7-18 mg/dl Creatinine 7.30 0.60-1.40 mg/dl Est Creatinine Clear Calc Drug Dose 9.4 ml/min Estimated GFR () 7.5 Estimated GFR (Non- 6.4 BUN/Creatinine Ratio 6.7 10-20 Random Glucose 67 70-99 mg/dl Calcium Level 9.3 8.5-10.1 mg/dl Bedside Glucose 75 70-99 mg/dl Assessment & Plan 81 yr old man on HD for ESRD with ischemic colitis of right colon. Leukocytosis mildly improved on abx. Clinically, difficult to assess. He is at a high risk for surgical intervention given his multiple comorbidities. Explained that he would be best treated with conservative measures even if he feels these take longer. Explained that surgical intervention would have a longer recovery and a longer time of being npo. His only concern is eating - unsure if he grasped the above discussion. Would continue with IV abx. If WBC ct improves again tomorrow, may be able to start clears.
[2017-01-26] MEDS: HYDROmorphone INJ 0.5 MG/0.5 ML SYR IV PRN (12:12)
--- NOTE | 2017-01-26 12:22 | Family Medicine Progress Note ---
Progress Note Date of Service Jan 26, 2017. Subjective Pt evaluation today including: conversation w/ patient, physical exam, chart review, conversation w/ railroad design consultant, review of inpatient medication list Pain: improving PO Intake: npo Voiding: no voiding problems Patient says that his abdominal pain is improving He had 6-7 bowel movements yesterday evening which were semiformed in nature No nausea, no vomiting, no fevers, chills or sweats Constitutional: No fever, No chills, No sweats Respiratory: No cough, No sputum, No wheezing, No shortness of breath Cardiovascular: No chest pain, No palpitations Abdomen: + pain, No nausea, No vomiting Medications Current Inpatient Medications Medications (Trade) Dose Ordered Sig/Brennan Route Start Time Stop Time Status Last Admin Dose Admin Acetaminophen (Tylenol Tab) 650 mg Q4H PRN PO 01/24/17 02:15 02/23/17 02:14 Metoprolol Succinate (Toprol Xl Tab) 50 mg QPM PO 01/24/17 21:00 02/23/17 20:59 01/25/17 20:15 50 MG Multivitamins/ Minerals (Multivitamin W/ Minerals Tab) 1 tab BID PO 01/24/17 09:00 02/23/17 08:59 01/26/17 08:19 1 TAB Piperacillin Sod/ Tazobactam Sod 3.375 gm/Dextrose 115 ml @ 28.75 mls/ hr Q12@0600,1800 IV 01/24/17 06:00 02/03/17 05:59 01/26/17 05:38 28.75 MLS/HR Ondansetron HCl (Zofran Inj) 4 mg Q6H PRN IV 01/24/17 02:15 02/23/17 02:14 Glucose (Glucose 40% Gel) UD PRN PO 01/24/17 02:15 02/23/17 02:14 Glucose (Glucose Chew Tab) 1 tabs UD PRN PO 01/24/17 02:15 02/23/17 02:14 Dextrose (Dextrose 50% 50ML Syringe) 50 ml UD PRN IV 01/24/17 02:15 02/23/17 02:14 Glucagon (Glucagon Inj) 1 mg UD PRN SQ 01/24/17 02:15 02/23/17 02:14 Piperacillin Sod/ Tazobactam Sod (Consult) 1 ea UD PRN N/A 01/24/17 03:00 02/23/17 02:59 Miscellaneous Information (Consult Glycemic Management Pharmacy) 1 ea UD N/A 01/24/17 08:26 02/23/17 08:25 Hydromorphone HCl (Dilaudid Inj) 0.25 mg Q3H PRN IV 01/24/17 10:30 02/07/17 10:29 01/24/17 15:43 0.25 MG Insulin Aspart (novoLOG ASPART) SLIDING SCALE If C... Q6 SC 01/24/17 18:00 02/23/17 17:59 Insulin Glargine (Lantus Solostar Pen) BID SQ 01/25/17 21:00 02/24/17 20:59 Objective Vital Signs Date Time Temp Pulse Resp B/P (MAP) Pulse Ox O2 Delivery O2 Flow Rate FiO2 01/26/17 12:04 36.6 72 97/53 (68) 01/26/17 11:15 79 103/55 01/26/17 11:00 76 98/55 01/26/17 10:45 78 94/57 01/26/17 10:30 78 108/52 01/26/17 10:15 75 115/58 01/26/17 10:01 73 128/64 01/26/17 09:45 78 134/60 01/26/17 09:30 78 139/66 01/26/17 09:15 77 122/66 01/26/17 09:08 36.8 75 133/62 (85) 01/26/17 09:00 73 126/77 01/26/17 08:56 72 136/60 01/26/17 08:00 96 Room Air 4.0 01/26/17 00:05 Room Air 01/25/17 23:37 36.6 77 18 134/70 (91) 95 Room Air 01/25/17 20:13 80 134/70 (91) 01/25/17 20:05 Room Air 01/25/17 16:00 Room Air 01/25/17 15:53 36.8 77 20 120/65 (83) 92 Room Air Physical Exam General Appearance: WD/WN, no apparent distress, + obese ENT: hearing grossly normal, pharynx normal, + pertinent finding (moist mucous membranes) Cardiovascular: no JVD, + systolic murmur (3/6 systolic murmur heard best at LUSB), + irregularly irregular Abdomen: normal bowel sounds, soft, + guarding, + tenderness (tender in the RLQ ) Extremities: non-tender, no pedal edema, no calf tenderness, normal capillary refill, + pertinent finding (weak peripheral pulses) Neurologic/Psychiatric: alert, normal mood/affect, oriented x 3 Laboratory Results Results Past 24 Hours Test 01/25/17 16:01 01/25/17 18:04 01/25/17 20:11 01/26/17 00:05 Range/Units Bedside Glucose 62 86 86 82 70-99 mg/dl Test 01/26/17 05:55 01/26/17 06:34 01/26/17 12:09 Range/Units White Blood Count 18.27 4.8-10.8 K/uL Red Blood Count 3.28 4.7-6.1 M/uL Hemoglobin 9.6 14.0-18.0 g/dL Hematocrit 30.4 42-52 % Mean Corpuscular Volume 92.7 80-100 fL Mean Corpuscular Hemoglobin 29.3 25-34 pg Mean Corpuscular Hemoglobin Concent 31.6 32-36 g/dl Platelet Count 235 130-400 K/uL Mean Platelet Volume 11.7 7.4-10.4 fL Neutrophils (%) (Auto) 80.6 % Lymphocytes (%) (Auto) 8.2 % Monocytes (%) (Auto) 8.9 % Eosinophils (%) (Auto) 1.7 % Basophils (%) (Auto) 0.3 % Neutrophils # (Auto) 14.73 1.4-6.5 K/uL Lymphocytes # (Auto) 1.50 1.2-3.4 K/uL Monocytes # (Auto) 1.62 0.11-0.59 K/uL Eosinophils # (Auto) 0.31 0-0.5 K/uL Basophils # (Auto) 0.05 0-0.2 K/uL RDW Standard Deviation 54.3 36.4-46.3 fL RDW Coefficient of Variation 16.0 11.5-14.5 % Immature Granulocyte % (Auto) 0.3 % Immature Granulocyte # (Auto) 0.06 0.00-0.02 K/uL Sodium Level 139 136-145 mmol/L Potassium Level 4.7 3.5-5.1 mmol/L Chloride Level 104 98-107 mmol/L Carbon Dioxide Level 24 21-32 mmol/L Anion Gap 11.0 3-11 mmol/L Blood Urea Nitrogen 49 7-18 mg/dl Creatinine 7.30 0.60-1.40 mg/dl Est Creatinine Clear Calc Drug Dose 9.4 ml/min Estimated GFR () 7.5 Estimated GFR (Non- 6.4 BUN/Creatinine Ratio 6.7 10-20 Random Glucose 67 70-99 mg/dl Calcium Level 9.3 8.5-10.1 mg/dl Bedside Glucose 75 73 70-99 mg/dl Assessment and Plan 81 yo M w/ hx of ESRD on Dialysis , Hx of Kidney Stones, DM, HTN, presented with RLQ pain, RL back pain, afebrile on arrival with Leukocytosis( 18.63), CT findings consistent with Ischemic Colitis. Ischemic Colitis - persistent RLQ abdominal pain - CT Abdomen/Pelvis: -Wall thickening of the ascending colon and hepatic flexure -associated mesenteric venous gas and portal venous gas -thinning of the wall of the hepatic flexure -Findings consistent with ischemic colitis - Pain Control w/IV dilaudid PRN and Zofran PRN for nausea - IV Zosyn - General Surgery Consulted and suggest continue with conservative management, Will continue to watch WBC and can possibly start clear liquids tomorrow as patient is very hungry - cd.iff ESRD on Dialysis - patient went for dialysis today, creat 7.3 today, will repeat tomorrow - Nephrology on board - NaHCO3 stopped per Nephrology Anemia - hgb 9.5 stable - likely secondary to ESRD - will get Erythropoiesis stimulating agent with Dialysis DM - glycemic consult - sugars have been running low - will give D5 20mls/hr HTN - BP controlled - c/w Metoprolol 50 qpm HLD - Statin remains held DVT Prophylaxis -SCD PT/OT Resident Physician Supervision Note: I was present with PGY2 Dr. Aba Gonzalez during the history and exam. I discussed the case with the resident and agree with the findings and plan as documented in the note. Any exceptions or clarifications are listed here: patient again with regular rhythm on examination. Pt w/ ongoing abdominal pain - lower quadrants - perhaps slightly better. When his glucose was low overnight he was given tiny amount of orange juice and he states "I spent the rest of the night having loose stools." VSS afebrile FSBS <80 gen - nad neck - no JVD heart - RRR, s1, s2, 2/6 systolic murmur RUSB lungs - CTA b/l today abd - soft, tender RLQ and LLQ, BS+, no peritoneal signs, no HSM ext - no edema labs - WBC 18 Suspected ischemic colitis - no significant improvement w/ conservative Rx. Cont IV abx, NPO status; general surgery continues to follow and recs appreciated. Repeat CBC in am. Due to frequent loose stools will check c diff toxin. T2DM - pharmacy managing but insulins on hold due to hypoglycemia. In fact adding D5W at 20cc/hr to maintain normal glycemia. ESRD on HD - nephrology consultation appreciated. For HD today. Family updated at bedside. Documented By: Mitul Cronin MD Continued [facility] stay due to: inadequate oral pain control, multiple IV medications needed, home environment unsafe for pt
--- NOTE | 2017-01-26 12:35 | Dialysis Progress Note ---
Hemodialysis Note Date of Service Jan 26, 2017. Chief Complaint Follow-up for end-stage renal disease on hemodialysis. Subjective Ed Was seen and examined during dialysis this morning. He was otherwise them tolerating dialysis well, blood pressure was acceptable, denied any dizziness or lightheadedness. However if he overall feels bad because he has been NPO, feels hungry and continues to have abdominal pain. Review of Systems A complete review of systems was performed. Pertinent positives are noted above. All other systems are negative. Vital Signs Last 8 Hrs Date Time Temp Pulse Resp B/P (MAP) Pulse Ox O2 Delivery O2 Flow Rate FiO2 01/26/17 12:04 36.6 72 97/53 (68) 01/26/17 11:15 79 103/55 01/26/17 11:00 76 98/55 01/26/17 10:45 78 94/57 01/26/17 10:30 78 108/52 01/26/17 10:15 75 115/58 01/26/17 10:01 73 128/64 01/26/17 09:45 78 134/60 01/26/17 09:30 78 139/66 01/26/17 09:15 77 122/66 01/26/17 09:08 36.8 75 133/62 (85) 01/26/17 09:00 73 126/77 01/26/17 08:56 72 136/60 01/26/17 08:00 96 Room Air 4.0 I & O 24-Hour Column 01/27/17 08:00 Output Total 1255 ml Balance -1255 ml Last Recorded Weight Weight (Kilograms): 105.300 Physical Exam GENERAL: Elderly male, AAA x 3, ill-appearing, not in any distress. NECK: Supple, no JVD. RESPIRATORY: Normal breathing efforts, no accessory muscle use, clear to auscultation bilaterally, no wheezes or rales. CARDIOVASCULAR: S1, S2 normal, rate rhythm regular. ABDOMEN: Significant tenderness in right lower quadrant, positive bowel sound , no guarding or rigidity. EXTREMITY: No lower extremity edema NEURO: speech fluent. PSYCHIATRY: Normal mood and judgment Family History Negative for CKD / ESRD Social History Smokeless Tobacco Use: No Alcohol Use: occasionally Drug Use: none Marital Status: Housing Status: lives with family Occupation: retired . has Alzheimers and requires home health nursing. Patient is retired. Current smoker Laboratory Results Past 24 Hours 01/26/17 05:55 Red Blood Count 3.28, Mean Corpuscular Volume 92.7, Mean Corpuscular Hemoglobin 29.3, Mean Corpuscular Hemoglobin Concent 31.6, Mean Platelet Volume 11.7, Neutrophils (%) (Auto) 80.6, Lymphocytes (%) (Auto) 8.2, Monocytes (%) (Auto) 8.9, Eosinophils (%) (Auto) 1.7, Basophils (%) (Auto) 0.3, Neutrophils # (Auto) 14.73, Lymphocytes # (Auto) 1.50, Monocytes # (Auto) 1.62, Eosinophils # (Auto) 0.31, Basophils # (Auto) 0.05 01/26/17 05:55 Test 01/25/17 16:01 01/25/17 18:04 01/25/17 20:11 01/26/17 00:05 Bedside Glucose 62 mg/dl (70-99) 86 mg/dl (70-99) 86 mg/dl (70-99) 82 mg/dl (70-99) Test 01/26/17 05:55 01/26/17 06:34 01/26/17 12:09 White Blood Count 18.27 K/uL (4.8-10.8) Red Blood Count 3.28 M/uL (4.7-6.1) Hemoglobin 9.6 g/dL (14.0-18.0) Hematocrit 30.4 % (42-52) Mean Corpuscular Volume 92.7 fL (80-100) Mean Corpuscular Hemoglobin 29.3 pg (25-34) Mean Corpuscular Hemoglobin Concent 31.6 g/dl (32-36) Platelet Count 235 K/uL (130-400) Mean Platelet Volume 11.7 fL (7.4-10.4) Neutrophils (%) (Auto) 80.6 % Lymphocytes (%) (Auto) 8.2 % Monocytes (%) (Auto) 8.9 % Eosinophils (%) (Auto) 1.7 % Basophils (%) (Auto) 0.3 % Neutrophils # (Auto) 14.73 K/uL (1.4-6.5) Lymphocytes # (Auto) 1.50 K/uL (1.2-3.4) Monocytes # (Auto) 1.62 K/uL (0.11-0.59) Eosinophils # (Auto) 0.31 K/uL (0-0.5) Basophils # (Auto) 0.05 K/uL (0-0.2) RDW Standard Deviation 54.3 fL (36.4-46.3) RDW Coefficient of Variation 16.0 % (11.5-14.5) Immature Granulocyte % (Auto) 0.3 % Immature Granulocyte # (Auto) 0.06 K/uL (0.00-0.02) Anion Gap 11.0 mmol/L (3-11) Est Creatinine Clear Calc Drug Dose 9.4 ml/min Estimated GFR () 7.5 Estimated GFR (Non- 6.4 BUN/Creatinine Ratio 6.7 (10-20) Calcium Level 9.3 mg/dl (8.5-10.1) Bedside Glucose 75 mg/dl (70-99) 73 mg/dl (70-99) Allergies Coded Allergies: No Known Allergies (Unverified , 03/21/16) Medications Current Inpatient Medications Medications (Trade) Dose Ordered Sig/Brennan Route Start Time Stop Time Status Last Admin Dose Admin Acetaminophen (Tylenol Tab) 650 mg Q4H PRN PO 01/24/17 02:15 02/23/17 02:14 Metoprolol Succinate (Toprol Xl Tab) 50 mg QPM PO 01/24/17 21:00 02/23/17 20:59 01/25/17 20:15 50 MG Multivitamins/ Minerals (Multivitamin W/ Minerals Tab) 1 tab BID PO 01/24/17 09:00 02/23/17 08:59 01/26/17 08:19 1 TAB Piperacillin Sod/ Tazobactam Sod 3.375 gm/Dextrose 115 ml @ 28.75 mls/ hr Q12@0600,1800 IV 01/24/17 06:00 02/03/17 05:59 01/26/17 05:38 28.75 MLS/HR Ondansetron HCl (Zofran Inj) 4 mg Q6H PRN IV 01/24/17 02:15 02/23/17 02:14 Glucose (Glucose 40% Gel) UD PRN PO 01/24/17 02:15 02/23/17 02:14 Glucose (Glucose Chew Tab) 1 tabs UD PRN PO 01/24/17 02:15 02/23/17 02:14 Dextrose (Dextrose 50% 50ML Syringe) 50 ml UD PRN IV 01/24/17 02:15 02/23/17 02:14 Glucagon (Glucagon Inj) 1 mg UD PRN SQ 01/24/17 02:15 02/23/17 02:14 Piperacillin Sod/ Tazobactam Sod (Consult) 1 ea UD PRN N/A 01/24/17 03:00 02/23/17 02:59 Miscellaneous Information (Consult Glycemic Management Pharmacy) 1 ea UD N/A 01/24/17 08:26 02/23/17 08:25 Hydromorphone HCl (Dilaudid Inj) 0.25 mg Q3H PRN IV 01/24/17 10:30 02/07/17 10:29 01/26/17 12:12 0.25 MG Insulin Aspart (novoLOG ASPART) SLIDING SCALE If C... Q6 SC 01/24/17 18:00 02/23/17 17:59 Insulin Glargine (Lantus Solostar Pen) BID SQ 01/25/17 21:00 02/24/17 20:59 Impression (1) ESRD on hemodialysis (2) Right sided abdominal pain (3) Ischemic colitis (4) Hypertension (5) Diabetes mellitus Recommendations --currently tolerating dialysis well. --Mx of ischemic colitis as per surgery, he has been NPO considering persistent significant abdominal pain -- dose medications for GFR less than 10 --will continue to monitor volume status, blood pressure and electrolyte while inpatient will follow. called by dialysis nurse later that patient signed off after 2.5 hours of dialysis treatment.
[2017-01-26] MEDS: DEXTROSE 5% 1000ML 1,000 ML IV SCH (14:43)
[2017-01-26] MEDS: METOPROLOL SUCC 50MG EXT REL TAB PO SCH (21:04)
[2017-01-27] MEDS: PIPERACILL/TAZOBAC IV 3.375 GM in DEXTROSE 5% 100ML 100 ML IV SCH ×2 (05:54→17:39)
[2017-01-27] MEDS: INSULIN ASPART 100 UNITS/ML 3 ML PEN SC SCH ×5 (06:00→20:57)
[2017-01-27 07:02] VITALS: BP 147/67; PULSE 75; TEMP 36.6; O2SAT 95
[2017-01-27] MEDS: INSULIN GLARGINE SOLOSTAR 100 UNITS/ML 3 ML PEN SQ SCH ×2 (08:38→20:57)
[2017-01-27] MEDS: CEROVITE ADV FORMULA TAB PO SCH ×2 (08:39→20:50)
--- NOTE | 2017-01-27 10:29 | Nephrology Progress Note ---
Nephrology Progress Note Date of Service Jan 27, 2017. Chief Complaint ESRD Subjective No acute events overnight. No complaints this morning. Denies shortness of breath. No fevers or chills. Signed off of hemodialysis after 2.5 hrs yesterday due to hand pain. Pain improved. Abdomen remains tender. No nausea. Net UF yesterday, 1.2 L. Review of Systems A complete review of systems was performed. Pertinent positives are noted above. All other systems are negative. Vital Signs Last 8 Hrs Date Time Temp Pulse Resp B/P (MAP) Pulse Ox O2 Delivery O2 Flow Rate FiO2 01/27/17 08:30 Room Air 01/27/17 07:02 36.6 75 18 147/67 (93) 95 Room Air Last Recorded Weight Weight (Kilograms): 102.100 Physical Exam General Appearance: WD/WN, no apparent distress Head: normocephalic, atraumatic Eyes: normal inspection, sclerae normal ENT: normal ENT inspection, pharynx normal Neck: supple, no JVD Respiratory/Chest: lungs clear, no respiratory distress, no accessory muscle use Cardiovascular: regular rate, rhythm, + systolic murmur Abdomen/GI: non tender, soft Extremities/Musculoskelatal: normal inspection, no pedal edema, + pertinent finding (AVF with thrill and bruit) Neurologic/Psych: alert, oriented x 3 Family History No pertinent family history Negative for CKD / ESRD Social History Smokeless Tobacco Use: No Alcohol Use: occasionally Drug Use: none Marital Status: Housing Status: lives with family Occupation: retired . has Alzheimers and requires home health nursing. Patient is retired. Current smoker Laboratory Results Past 24 Hours Test 01/26/17 12:09 01/26/17 16:24 01/26/17 17:51 01/26/17 18:19 Bedside Glucose 73 mg/dl (70-99) 72 mg/dl (70-99) 65 mg/dl (70-99) 101 mg/dl (70-99) Test 01/26/17 21:04 01/27/17 00:17 01/27/17 04:44 01/27/17 06:05 Bedside Glucose 94 mg/dl (70-99) 93 mg/dl (70-99) 103 mg/dl (70-99) Date/Time Source Procedure Growth Status 01/27/17 06:20 Stool C.difficile Toxin B Gene (PCR) - Final No C. difficile toxin B gene detected Complete Allergies Coded Allergies: No Known Allergies (Unverified , 03/21/16) Medications Current Inpatient Medications Medications (Trade) Dose Ordered Sig/Brennan Route Start Time Stop Time Status Last Admin Dose Admin Acetaminophen (Tylenol Tab) 650 mg Q4H PRN PO 01/24/17 02:15 02/23/17 02:14 Metoprolol Succinate (Toprol Xl Tab) 50 mg QPM PO 01/24/17 21:00 02/23/17 20:59 01/26/17 21:04 50 MG Multivitamins/ Minerals (Multivitamin W/ Minerals Tab) 1 tab BID PO 01/24/17 09:00 02/23/17 08:59 01/26/17 21:04 1 TAB Piperacillin Sod/ Tazobactam Sod 3.375 gm/Dextrose 115 ml @ 28.75 mls/ hr Q12@0600,1800 IV 01/24/17 06:00 02/03/17 05:59 01/27/17 05:54 28.75 MLS/HR Ondansetron HCl (Zofran Inj) 4 mg Q6H PRN IV 01/24/17 02:15 02/23/17 02:14 Glucose (Glucose 40% Gel) UD PRN PO 01/24/17 02:15 02/23/17 02:14 Glucose (Glucose Chew Tab) 1 tabs UD PRN PO 01/24/17 02:15 02/23/17 02:14 Dextrose (Dextrose 50% 50ML Syringe) 50 ml UD PRN IV 01/24/17 02:15 02/23/17 02:14 01/26/17 18:11 50 ML Glucagon (Glucagon Inj) 1 mg UD PRN SQ 01/24/17 02:15 02/23/17 02:14 Piperacillin Sod/ Tazobactam Sod (Consult) 1 ea UD PRN N/A 01/24/17 03:00 02/23/17 02:59 Miscellaneous Information (Consult Glycemic Management Pharmacy) 1 ea UD N/A 01/24/17 08:26 02/23/17 08:25 Hydromorphone HCl (Dilaudid Inj) 0.25 mg Q3H PRN IV 01/24/17 10:30 02/07/17 10:29 01/26/17 12:12 0.25 MG Insulin Aspart (novoLOG ASPART) SLIDING SCALE If C... Q6 SC 01/24/17 18:00 02/23/17 17:59 Insulin Glargine (Lantus Solostar Pen) BID SQ 01/25/17 21:00 02/24/17 20:59 Dextrose 1,000 ml @ 20 mls/hr Q24H IV 01/26/17 14:30 02/25/17 14:29 01/26/17 14:43 20 MLS/HR Impression (1) ESRD on hemodialysis (2) Right sided abdominal pain (3) Ischemic colitis (4) Hypertension (5) Diabetes mellitus Mr. Galeano is a 81-year-old male with ESRD on HD. He completed his scheduled treatment yesterday without complications. Treatment was limited but appropriate. Metabolic profile pending this morning. Blood pressure and volume status are appropriate. He is anemic and will receive EPO with HD while inpatient. Recommendations Plan HD tomorrow Renal diet EPO QHD Medications appropriate for renal function Monitor metabolic profile daily
[2017-01-27 10:56] LABS: HEMATOCRIT 31.9 % (42-52); MEAN CELL VOLUME 91.9 fL (80-100); MEAN CORPUSCULAR HEMOGLOBIN 28.8 pg (25-34); MEAN CORPUSCULAR HGB CONC 31.3 g/dl (32-36); MEAN PLATELET VOLUME 10.9 fL (7.4-10.4); PLATELET COUNT 259 K/uL (130-400); RED BLOOD COUNT 3.47 M/uL (4.7-6.1); WHITE BLOOD COUNT 11.24 K/uL (4.8-10.8)
--- NOTE | 2017-01-27 11:18 | Surgery Progress Note ---
Surgery Progress Note Date of Service Jan 27, 2017. Subjective Post OP Day: HD # 3 + feeling well "hungry" "Having some pain in Left lower side now. Not as bad in the right lower side" Diarrhea last night, nothing today passing gas Objective Vital Signs: Date Time Temp Pulse Resp B/P (MAP) Pulse Ox O2 Delivery O2 Flow Rate FiO2 01/27/17 08:30 Room Air 01/27/17 07:02 36.6 75 18 147/67 (93) 95 Room Air 01/27/17 00:00 Room Air 01/26/17 23:28 36.7 70 16 103/63 (76) 94 Room Air 01/26/17 21:03 75 128/52 (77) 01/26/17 16:00 Room Air 01/26/17 15:49 36.9 72 19 121/62 (81) 95 Room Air 01/26/17 12:04 36.6 72 97/53 (68) General Appearance: WD/WN, no apparent distress Head: normocephalic, atraumatic Neck: trachea midline Respiratory/Chest: no respiratory distress, no accessory muscle use Abdomen: non distended, soft, + tenderness (right and left lower quadrant, no peritonitis, rigidity, or rebound) Laboratory Results: Results Past 24 Hours Test 01/26/17 12:09 01/26/17 16:24 01/26/17 17:51 01/26/17 18:19 Range/Units Bedside Glucose 73 72 65 101 70-99 mg/dl Test 01/26/17 21:04 01/27/17 00:17 01/27/17 06:05 01/27/17 10:39 Range/Units Bedside Glucose 94 93 103 70-99 mg/dl White Blood Count 11.24 4.8-10.8 K/uL Red Blood Count 3.47 4.7-6.1 M/uL Hemoglobin 10.0 14.0-18.0 g/dL Hematocrit 31.9 42-52 % Mean Corpuscular Volume 91.9 80-100 fL Mean Corpuscular Hemoglobin 28.8 25-34 pg Mean Corpuscular Hemoglobin Concent 31.3 32-36 g/dl RDW Standard Deviation 53.4 36.4-46.3 fL RDW Coefficient of Variation 15.7 11.5-14.5 % Platelet Count 259 130-400 K/uL Mean Platelet Volume 10.9 7.4-10.4 fL Microbiology Results 01/27/17 C.difficile Toxin B Gene (PCR) - Final, Complete No C. difficile toxin B gene detected Assessment & Plan Colitis of right colon and Hepatic Flexure - Ischemic? - Vitals stable - leukocytosis improving, 11k today (18k yesterday) - Abdomen is soft, no peritonitis. There is tenderness in RLQ and LLQ but improved since yesterdays examination Plan: Start clear liquids Continue IV fluids and IV antibiotics repeat am labs, trend wbc continue current medical management will continue to follow Dr. Blunt has seen and examined patient, agrees with above.
[2017-01-27 11:37] LABS: BUN/CREATININE RATIO 5.6 (10-20); CREATININE 6.2 mg/dl (0.60-1.40); POTASSIUM 4.2 mmol/L (3.5-5.1)
--- NOTE | 2017-01-27 11:58 | Family Medicine Progress Note ---
Progress Note Date of Service Jan 27, 2017. Subjective Pt evaluation today including: conversation w/ patient, physical exam Pain: mild PO Intake: npo pain is improving moved to left side also has remained NPO, surgery to advance to clear liquid diet denies any nausea, vomiting no bm yesterday evening Constitutional: No fever, No chills, No sweats Respiratory: No cough, No shortness of breath Cardiovascular: No chest pain, No palpitations Abdomen: + pain, No nausea, No vomiting, No diarrhea, No constipation Medications Current Inpatient Medications Medications (Trade) Dose Ordered Sig/Brennan Route Start Time Stop Time Status Last Admin Dose Admin Acetaminophen (Tylenol Tab) 650 mg Q4H PRN PO 01/24/17 02:15 02/23/17 02:14 Metoprolol Succinate (Toprol Xl Tab) 50 mg QPM PO 01/24/17 21:00 02/23/17 20:59 01/26/17 21:04 50 MG Multivitamins/ Minerals (Multivitamin W/ Minerals Tab) 1 tab BID PO 01/24/17 09:00 02/23/17 08:59 01/26/17 21:04 1 TAB Piperacillin Sod/ Tazobactam Sod 3.375 gm/Dextrose 115 ml @ 28.75 mls/ hr Q12@0600,1800 IV 01/24/17 06:00 02/03/17 05:59 01/27/17 05:54 28.75 MLS/HR Ondansetron HCl (Zofran Inj) 4 mg Q6H PRN IV 01/24/17 02:15 02/23/17 02:14 Glucose (Glucose 40% Gel) UD PRN PO 01/24/17 02:15 02/23/17 02:14 Glucose (Glucose Chew Tab) 1 tabs UD PRN PO 01/24/17 02:15 02/23/17 02:14 Dextrose (Dextrose 50% 50ML Syringe) 50 ml UD PRN IV 01/24/17 02:15 02/23/17 02:14 01/26/17 18:11 50 ML Glucagon (Glucagon Inj) 1 mg UD PRN SQ 01/24/17 02:15 02/23/17 02:14 Piperacillin Sod/ Tazobactam Sod (Consult) 1 ea UD PRN N/A 01/24/17 03:00 02/23/17 02:59 Miscellaneous Information (Consult Glycemic Management Pharmacy) 1 ea UD N/A 01/24/17 08:26 02/23/17 08:25 Hydromorphone HCl (Dilaudid Inj) 0.25 mg Q3H PRN IV 01/24/17 10:30 02/07/17 10:29 01/26/17 12:12 0.25 MG Insulin Aspart (novoLOG ASPART) SLIDING SCALE If C... Q6 SC 01/24/17 18:00 02/23/17 17:59 Insulin Glargine (Lantus Solostar Pen) BID SQ 01/25/17 21:00 02/24/17 20:59 Dextrose 1,000 ml @ 20 mls/hr Q24H IV 01/26/17 14:30 02/25/17 14:29 01/26/17 14:43 20 MLS/HR Objective Vital Signs Date Time Temp Pulse Resp B/P (MAP) Pulse Ox O2 Delivery O2 Flow Rate FiO2 01/27/17 08:30 Room Air 01/27/17 07:02 36.6 75 18 147/67 (93) 95 Room Air 01/27/17 00:00 Room Air 01/26/17 23:28 36.7 70 16 103/63 (76) 94 Room Air 01/26/17 21:03 75 128/52 (77) 01/26/17 16:00 Room Air 01/26/17 15:49 36.9 72 19 121/62 (81) 95 Room Air 01/26/17 12:04 36.6 72 97/53 (68) Physical Exam General Appearance: WD/WN, no apparent distress Respiratory/Chest: lungs clear, no respiratory distress, no accessory muscle use Cardiovascular: regular rate, rhythm, no JVD, + systolic murmur (3/6 LUSB) Abdomen: normal bowel sounds, no organomegaly, no pulsatile mass, + tenderness (RLQ and LLQ) Extremities: non-tender, no calf tenderness, normal capillary refill, + pertinent finding (weak peripheral pulses) Neurologic/Psychiatric: alert, normal mood/affect, oriented x 3 Laboratory Results Results Past 24 Hours Test 01/26/17 12:09 01/26/17 16:24 01/26/17 17:51 01/26/17 18:19 Range/Units Bedside Glucose 73 72 65 101 70-99 mg/dl Test 01/26/17 21:04 01/27/17 00:17 01/27/17 06:05 01/27/17 10:39 Range/Units Bedside Glucose 94 93 103 70-99 mg/dl White Blood Count 11.24 4.8-10.8 K/uL Red Blood Count 3.47 4.7-6.1 M/uL Hemoglobin 10.0 14.0-18.0 g/dL Hematocrit 31.9 42-52 % Mean Corpuscular Volume 91.9 80-100 fL Mean Corpuscular Hemoglobin 28.8 25-34 pg Mean Corpuscular Hemoglobin Concent 31.3 32-36 g/dl RDW Standard Deviation 53.4 36.4-46.3 fL RDW Coefficient of Variation 15.7 11.5-14.5 % Platelet Count 259 130-400 K/uL Mean Platelet Volume 10.9 7.4-10.4 fL Sodium Level 138 136-145 mmol/L Potassium Level 4.2 3.5-5.1 mmol/L Chloride Level 100 98-107 mmol/L Carbon Dioxide Level 27 21-32 mmol/L Anion Gap 11.0 3-11 mmol/L Blood Urea Nitrogen 36 7-18 mg/dl Creatinine 6.20 0.60-1.40 mg/dl Est Creatinine Clear Calc Drug Dose 11.4 ml/min Estimated GFR () 9.1 Estimated GFR (Non- 7.9 BUN/Creatinine Ratio 5.6 10-20 Random Glucose 108 70-99 mg/dl Calcium Level 9.0 8.5-10.1 mg/dl Microbiology Results 01/27/17 C.difficile Toxin B Gene (PCR) - Final, Complete No C. difficile toxin B gene detected Assessment and Plan 81 yo M w/ hx of ESRD on Dialysis , Hx of Kidney Stones, DM, HTN, presented with RLQ pain, RL back pain, afebrile on arrival with Leukocytosis( 18.63), CT findings consistent with Ischemic Colitis. Ischemic Colitis - persistent RLQ abdominal pain - CT Abdomen/Pelvis: -Wall thickening of the ascending colon and hepatic flexure -associated mesenteric venous gas and portal venous gas -thinning of the wall of the hepatic flexure -Findings consistent with ischemic colitis - Pain Control w/IV dilaudid PRN and Zofran PRN for nausea - IV Zosyn - General Surgery Consulted and suggest continue with conservative management, Will continue to watch WBC, currently trending down - Advance diet to clear liquids today - c diff negative ESRD on Dialysis - patient went for dialysis today, creat 6.2 today, will repeat tomorrow - Nephrology on board - NaHCO3 stopped per Nephrology Anemia - hgb 10 stable - likely secondary to ESRD - will get Erythropoiesis stimulating agent with Dialysis DM - glycemic consult - sugars have been running low - D5 20mls/hr HTN - BP controlled - c/w Metoprolol 50 qpm HLD - Statin remains held DVT Prophylaxis -SCD PT/OT Resident Physician Supervision Note: I was present with PGY2 Dr. Aba Gonzalez during the history and exam. I discussed the case with the resident and agree with the findings and plan as documented in the note. Any exceptions or clarifications are listed here: none. Pt with improved abd pain. RLQ pain resolved; but now has mild left-sided pain. Had clears for lunch today - this did NOT worsen any GI symptom. Liquid stools continue but c. diff negative. Overall feels better today. VSS afebrile FSBS normal gen - nad neck - no JVD heart - RRR, s1, s2, 2/6 systolic murmur RUSB lungs - CTA b/l today abd - soft, NT, ND, BS+, no peritoneal signs ext - no edema labs - WBC 11 - down from 18 A/P: Suspected ischemic colitis - improved clinically and by way of labs. Clears started by gen surg. Cont IV zosyn. Repeat CBC in am. Loose stools are 2nd to the ischemic colitis; not c. diff. T2DM - pharmacy managing. Can d/c D5W drip as he is now eating. ESRD on HD - nephrology consultation appreciated for HD needs. progressing. Documented By: Mitul Cronin MD Continued [facility] stay due to: inadequate po fluid intake
[2017-01-27] MEDS: DEXTROSE 5% 1000ML 1,000 ML IV SCH (14:36)
[2017-01-27 15:51] VITALS: BP 136/73; PULSE 68; TEMP 36.5; O2SAT 98
[2017-01-27 20:49] VITALS: BP 141/61; PULSE 61
[2017-01-27] MEDS: METOPROLOL SUCC 50MG EXT REL TAB PO SCH (20:50)
[2017-01-27 23:45] VITALS: BP 143/56; PULSE 63; TEMP 36.6; O2SAT 93
[2017-01-28] VITALS (24 sets, daily range): BP systolic 118–168; BP diastolic 54–84; PULSE 61–80; TEMP 36.2–37.3; O2SAT 90–98
[2017-01-28] MEDS: PIPERACILL/TAZOBAC IV 3.375 GM in DEXTROSE 5% 100ML 100 ML IV SCH ×2 (05:47→17:09)
[2017-01-28] MEDS ORDERED: EPOETIN ALFA 4000 UNITS/ML VIAL IV SCH (07:00)
[2017-01-28] MEDS: INSULIN ASPART 100 UNITS/ML 3 ML PEN SC SCH ×4 (08:21→20:00)
[2017-01-28] MEDS: CEROVITE ADV FORMULA TAB PO SCH ×2 (08:21→19:53)
[2017-01-28] MEDS: INSULIN GLARGINE SOLOSTAR 100 UNITS/ML 3 ML PEN SQ SCH ×2 (08:22→20:01)
[2017-01-28 08:30] LABS: HEMATOCRIT 31.5 % (42-52); MEAN CELL VOLUME 91.6 fL (80-100); MEAN CORPUSCULAR HEMOGLOBIN 29.9 pg (25-34); MEAN CORPUSCULAR HGB CONC 32.7 g/dl (32-36); MEAN PLATELET VOLUME 11.5 fL (7.4-10.4); PLATELET COUNT 246 K/uL (130-400); RED BLOOD COUNT 3.44 M/uL (4.7-6.1); WHITE BLOOD COUNT 9.42 K/uL (4.8-10.8)
[2017-01-28 09:08] LABS: BUN/CREATININE RATIO 5.4 (10-20); CALCIUM 9.6 mg/dl (8.5-10.1); CREATININE 7.5 mg/dl (0.60-1.40); POTASSIUM 4.1 mmol/L (3.5-5.1)
[2017-01-28] MEDS ORDERED: HEPARIN SOD (PORCINE) 1000 UNIT/ML 10 ML VIAL IV SCH ×2 (11:00)
--- NOTE | 2017-01-28 11:00 | Dialysis Progress Note ---
Hemodialysis Note Date of Service Jan 28, 2017. Chief Complaint ESRD Subjective No acute events overnight. Ed was seen and evaluated during hemodialysis this morning. Mild abdominal discomfort persists. He has been tolerating clears. He is tolerating HD well. No current complaints. Review of Systems A complete review of systems was performed. Pertinent positives are noted above. All other systems are negative. Vital Signs Last 8 Hrs Date Time Temp Pulse Resp B/P (MAP) Pulse Ox O2 Delivery O2 Flow Rate FiO2 01/28/17 10:00 65 135/71 01/28/17 09:45 65 149/78 01/28/17 09:44 36.7 67 143/69 (93) 01/28/17 09:32 61 150/70 01/28/17 08:04 36.8 70 23 137/74 (95) 90 01/28/17 08:00 Room Air Last Recorded Weight Weight (Kilograms): 102.600 Physical Exam General Appearance: WD/WN, no apparent distress Head: normocephalic, atraumatic Eyes: normal inspection, sclerae normal ENT: normal ENT inspection, pharynx normal Neck: supple, no JVD Respiratory/Chest: lungs clear, no respiratory distress, no accessory muscle use Cardiovascular: regular rate, rhythm, no gallop, + systolic murmur Abdomen/GI: soft, + tenderness Extremities/Musculoskelatal: normal inspection, no pedal edema Neurologic/Psych: alert, + depressed affect Family History Negative for CKD / ESRD Social History Smokeless Tobacco Use: No Alcohol Use: occasionally Drug Use: none Marital Status: Housing Status: lives with family Occupation: retired . has Alzheimers and requires home health nursing. Patient is retired. Current smoker Laboratory Results Past 24 Hours 01/28/17 07:58 01/28/17 07:58 Test 01/27/17 11:41 01/27/17 17:09 01/27/17 20:47 01/28/17 00:09 Bedside Glucose 105 mg/dl (70-99) 91 mg/dl (70-99) 148 mg/dl (70-99) 99 mg/dl (70-99) Test 01/28/17 07:58 Red Blood Count 3.44 M/uL (4.7-6.1) Mean Corpuscular Volume 91.6 fL (80-100) Mean Corpuscular Hemoglobin 29.9 pg (25-34) Mean Corpuscular Hemoglobin Concent 32.7 g/dl (32-36) RDW Standard Deviation 52.5 fL (36.4-46.3) RDW Coefficient of Variation 15.5 % (11.5-14.5) Mean Platelet Volume 11.5 fL (7.4-10.4) Anion Gap 12.0 mmol/L (3-11) Est Creatinine Clear Calc Drug Dose 9.4 ml/min Estimated GFR () 7.2 Estimated GFR (Non- 6.2 BUN/Creatinine Ratio 5.4 (10-20) Calcium Level 9.6 mg/dl (8.5-10.1) Allergies Coded Allergies: No Known Allergies (Unverified , 03/21/16) Medications Current Inpatient Medications Medications (Trade) Dose Ordered Sig/Brennan Route Start Time Stop Time Status Last Admin Dose Admin Acetaminophen (Tylenol Tab) 650 mg Q4H PRN PO 01/24/17 02:15 02/23/17 02:14 Metoprolol Succinate (Toprol Xl Tab) 50 mg QPM PO 01/24/17 21:00 02/23/17 20:59 01/27/17 20:50 50 MG Multivitamins/ Minerals (Multivitamin W/ Minerals Tab) 1 tab BID PO 01/24/17 09:00 02/23/17 08:59 01/28/17 08:21 1 TAB Piperacillin Sod/ Tazobactam Sod 3.375 gm/Dextrose 115 ml @ 28.75 mls/ hr Q12@0600,1800 IV 01/24/17 06:00 02/03/17 05:59 01/28/17 05:47 28.75 MLS/HR Ondansetron HCl (Zofran Inj) 4 mg Q6H PRN IV 01/24/17 02:15 02/23/17 02:14 Glucose (Glucose 40% Gel) UD PRN PO 01/24/17 02:15 02/23/17 02:14 Glucose (Glucose Chew Tab) 1 tabs UD PRN PO 01/24/17 02:15 02/23/17 02:14 Dextrose (Dextrose 50% 50ML Syringe) 50 ml UD PRN IV 01/24/17 02:15 02/23/17 02:14 01/26/17 18:11 50 ML Glucagon (Glucagon Inj) 1 mg UD PRN SQ 01/24/17 02:15 02/23/17 02:14 Piperacillin Sod/ Tazobactam Sod (Consult) 1 ea UD PRN N/A 01/24/17 03:00 02/23/17 02:59 Miscellaneous Information (Consult Glycemic Management Pharmacy) 1 ea UD N/A 01/24/17 08:26 02/23/17 08:25 Hydromorphone HCl (Dilaudid Inj) 0.25 mg Q3H PRN IV 01/24/17 10:30 02/07/17 10:29 01/26/17 12:12 0.25 MG Insulin Glargine (Lantus Solostar Pen) BID SQ 01/25/17 21:00 02/24/17 20:59 01/27/17 20:57 10 UNITS Insulin Aspart (novoLOG ASPART) SLIDING SCALE If C... ACHS SC 01/27/17 12:00 02/26/17 11:59 01/28/17 08:21 4 UNITS Epoetin Victor Hugo (Procrit Inj) 4,000 units TODAY@0700 IV 01/28/17 07:00 01/28/17 18:00 Impression (1) ESRD on hemodialysis (2) Right sided abdominal pain (3) Ischemic colitis (4) Hypertension (5) Diabetes mellitus Mr. Galeano is a 81-year-old male with ESRD on HD. He was seen and evaluated during hemodialysis this morning. Blood flow appropriate via AVF. No complications with treatment. Blood pressure normal. He is anemic and will receive EPO with HD while inpatient. Recommendations HD today, 3.5 hrs, UF goal 1 kg, 3 K bath Renal diet EPO 4000 QHD Medications appropriate for renal function Monitor metabolic profile daily
--- NOTE | 2017-01-28 14:04 | Pharmacy Progress Note ---
Glycemic: Assessment & Plan Date of Service Jan 28, 2017. Assessment & Plan The patient is currently receiving very little insulin per day. BSGs have been well-controlled over the past 48+ hours. Patient is receiving Lantus doses only when BSGs greater than 140mg/dL. This seems to be working fairly well thus far. Diet advanced to clear liquids yesterday. * Basal insulin: Lantus 10 units every 12 hours, if BSG > 140mg/dL (no Lantus for BSGs < 140mg/dL) * Correctional Insulin: Novolog Correction per scale ACHS Goal Range: Low 110 mg/dL - High 140 mg/dL Correction Factor: 30 mg/dL/unit * Prandial insulin: Per carb ratio of 1 unit per 10 grams CHO consumed No changes needed to inpatient regimen at this time. Pharmacy will continue to monitor patient daily and write orders per [facility] inpatient glycemic control protocol. Thanks. * Please note that the plan above was derived based on current level of insulin resistance and hospital stress. These recommendations are appropriate for inpatient admission only. Plan of care upon discharge will need to be reassessed to avoid potential outpatient hypo/hyperglycemia.
--- NOTE | 2017-01-28 14:30 | Family Medicine Progress Note ---
Progress Note Date of Service Jan 28, 2017. Subjective Pain: minimal PO Intake: clear liquid diet Voiding: no voiding problems Patients abdominal pain is improving Tolerating clear liquid diet well 2 episodes of diarrhea yesterday evening (no blood) No nausea or vomiting Constitutional: + fatigue, No fever, No chills, No sweats Respiratory: No cough, No shortness of breath, No dyspnea on exertion Cardiovascular: No chest pain, No edema, No palpitations Abdomen: + diarrhea, No pain, No nausea, No vomiting, No constipation, No GI bleeding Medications Current Inpatient Medications Medications (Trade) Dose Ordered Sig/Brennan Route Start Time Stop Time Status Last Admin Dose Admin Acetaminophen (Tylenol Tab) 650 mg Q4H PRN PO 01/24/17 02:15 02/23/17 02:14 Metoprolol Succinate (Toprol Xl Tab) 50 mg QPM PO 01/24/17 21:00 02/23/17 20:59 01/27/17 20:50 50 MG Multivitamins/ Minerals (Multivitamin W/ Minerals Tab) 1 tab BID PO 01/24/17 09:00 02/23/17 08:59 01/28/17 08:21 1 TAB Piperacillin Sod/ Tazobactam Sod 3.375 gm/Dextrose 115 ml @ 28.75 mls/ hr Q12@0600,1800 IV 01/24/17 06:00 02/03/17 05:59 01/28/17 05:47 28.75 MLS/HR Ondansetron HCl (Zofran Inj) 4 mg Q6H PRN IV 01/24/17 02:15 02/23/17 02:14 Glucose (Glucose 40% Gel) UD PRN PO 01/24/17 02:15 02/23/17 02:14 Glucose (Glucose Chew Tab) 1 tabs UD PRN PO 01/24/17 02:15 02/23/17 02:14 Dextrose (Dextrose 50% 50ML Syringe) 50 ml UD PRN IV 01/24/17 02:15 02/23/17 02:14 01/26/17 18:11 50 ML Glucagon (Glucagon Inj) 1 mg UD PRN SQ 01/24/17 02:15 02/23/17 02:14 Piperacillin Sod/ Tazobactam Sod (Consult) 1 ea UD PRN N/A 01/24/17 03:00 02/23/17 02:59 Miscellaneous Information (Consult Glycemic Management Pharmacy) 1 ea UD N/A 01/24/17 08:26 02/23/17 08:25 Hydromorphone HCl (Dilaudid Inj) 0.25 mg Q3H PRN IV 01/24/17 10:30 02/07/17 10:29 01/26/17 12:12 0.25 MG Insulin Glargine (Lantus Solostar Pen) BID SQ 01/25/17 21:00 02/24/17 20:59 01/27/17 20:57 10 UNITS Insulin Aspart (novoLOG ASPART) SLIDING SCALE If C... ACHS SC 01/27/17 12:00 02/26/17 11:59 01/28/17 08:21 4 UNITS Epoetin Victor Hugo (Procrit Inj) 4,000 units TODAY@0700 IV 01/28/17 07:00 01/28/17 18:00 01/28/17 11:33 4,000 UNITS Heparin Sodium (Porcine) (Heparin Iv Bolus) 4,000 unit ONE IV 01/28/17 11:00 01/28/17 16:00 Objective Vital Signs Date Time Temp Pulse Resp B/P (MAP) Pulse Ox O2 Delivery O2 Flow Rate FiO2 01/28/17 14:04 36.8 78 17 128/67 (87) 97 Room Air 01/28/17 13:34 37.0 71 143/58 (86) 01/28/17 13:20 71 143/58 01/28/17 13:00 70 129/71 01/28/17 12:45 71 118/62 01/28/17 12:30 72 130/84 01/28/17 12:15 72 137/69 01/28/17 12:00 62 118/54 01/28/17 11:45 61 168/69 01/28/17 11:30 66 150/73 01/28/17 11:15 71 142/75 01/28/17 11:00 70 121/83 01/28/17 10:45 70 136/67 01/28/17 10:30 70 133/76 01/28/17 10:15 70 148/80 01/28/17 10:00 65 135/71 01/28/17 09:45 65 149/78 01/28/17 09:44 36.7 67 143/69 (93) 01/28/17 09:32 61 150/70 01/28/17 08:04 36.8 70 23 137/74 (95) 90 01/28/17 08:00 Room Air 01/28/17 00:00 Room Air 01/27/17 23:45 36.6 63 20 143/56 (85) 93 Room Air 01/27/17 20:49 61 141/61 (87) 01/27/17 16:00 Room Air 01/27/17 15:51 36.5 68 18 136/73 (94) 98 Room Air Physical Exam General Appearance: WD/WN, no apparent distress Neck: supple, no JVD, no carotid bruits Respiratory/Chest: lungs clear, + wheezing (wheeze in RLQ,poor expiratory effort ) Assessment and Plan 81 yo M w/ hx of ESRD on Dialysis , Hx of Kidney Stones, DM, HTN, presented with RLQ pain, RL back pain, afebrile on arrival with Leukocytosis( 18.63), CT findings consistent with Ischemic Colitis. Ischemic Colitis - persistent RLQ abdominal pain - CT Abdomen/Pelvis: -Wall thickening of the ascending colon and hepatic flexure -associated mesenteric venous gas and portal venous gas -thinning of the wall of the hepatic flexure -Findings consistent with ischemic colitis - Pain Control w/IV dilaudid PRN and Zofran PRN for nausea - IV Zosyn - General Surgery Consulted and suggest continue with conservative management, Will continue to watch WBC, currently trending down - Tolerating clear liquid diet well, will let surgery decide as to whether or not they want to advance his diet. - c diff negative ESRD on Dialysis - patient went for dialysis today, creat 6.2 yesterday, will repeat tomorrow - Nephrology on board - NaHCO3 stopped per Nephrology Anemia - hgb 10.3 stable - likely secondary to ESRD - will get Erythropoiesis stimulating agent with Dialysis DM - glycemic consult - glucose well controlled HTN - BP controlled - c/w Metoprolol 50 qpm HLD - Statin remains held DVT Prophylaxis -SCD PT/OT Resident Physician Supervision Note: I was present with PGY2 Dr. Aba Gonzalez during the history and exam. I discussed the case with the resident and agree with the findings and plan as documented in the note. Any exceptions or clarifications are listed here: none. Pt with improved abd pain once again. mild left-sided pain only. tolerating diet. loose stools still present but mild as well. no fever. VSS afebrile FSBS normal gen - nad neck - no JVD heart - RRR, s1, s2, 2/6 systolic murmur RUSB lungs - CTA b/l today abd - soft, minimal tenderness LLQ, ND, BS+, no peritoneal signs ext - no edema A/P: Suspected ischemic colitis - improved clinically; diet advancement per surgery. Cont IV zosyn; can likely transition to PO abx tomorrow. Loose stools are 2nd to the ischemic colitis; not c. diff as toxin was negative. T2DM - pharmacy managing. Controlled. ESRD on HD - nephrology consultation appreciated for HD needs. HD tomorrow. progressing. hopefully d/c next 24-48 hrs Documented By: Mitul Cronin MD Continued [facility] stay due to: ambulation difficulties Discharge planning: home with home health, rehab hospital
--- NOTE | 2017-01-28 15:13 | Surgery Progress Note ---
Surgery Progress Note Date of Service Jan 28, 2017. Subjective Post OP Day: HD # 4 + feeling well low back pain LLQ abdominal pain The right lower abdominal pain is not as severe tolerating clear liquids, hungry Objective Vital Signs: Date Time Temp Pulse Resp B/P (MAP) Pulse Ox O2 Delivery O2 Flow Rate FiO2 01/28/17 14:04 36.8 78 17 128/67 (87) 97 Room Air 01/28/17 13:34 37.0 71 143/58 (86) 01/28/17 13:20 71 143/58 01/28/17 13:00 70 129/71 01/28/17 12:45 71 118/62 01/28/17 12:30 72 130/84 01/28/17 12:15 72 137/69 01/28/17 12:00 62 118/54 01/28/17 11:45 61 168/69 01/28/17 11:30 66 150/73 01/28/17 11:15 71 142/75 01/28/17 11:00 70 121/83 01/28/17 10:45 70 136/67 01/28/17 10:30 70 133/76 01/28/17 10:15 70 148/80 01/28/17 10:00 65 135/71 01/28/17 09:45 65 149/78 01/28/17 09:44 36.7 67 143/69 (93) 01/28/17 09:32 61 150/70 01/28/17 08:04 36.8 70 23 137/74 (95) 90 01/28/17 08:00 Room Air 01/28/17 00:00 Room Air 01/27/17 23:45 36.6 63 20 143/56 (85) 93 Room Air 01/27/17 20:49 61 141/61 (87) 01/27/17 16:00 Room Air 01/27/17 15:51 36.5 68 18 136/73 (94) 98 Room Air General Appearance: WD/WN, no apparent distress Head: normocephalic, atraumatic Neck: trachea midline Respiratory/Chest: no respiratory distress, no accessory muscle use Abdomen: non distended, soft, + tenderness (RLQ on deep palpation) Laboratory Results: Results Past 24 Hours Test 01/27/17 17:09 01/27/17 20:47 01/28/17 00:09 01/28/17 07:52 Range/Units Bedside Glucose 91 148 99 94 70-99 mg/dl Test 01/28/17 07:58 01/28/17 13:53 Range/Units White Blood Count 9.42 4.8-10.8 K/uL Red Blood Count 3.44 4.7-6.1 M/uL Hemoglobin 10.3 14.0-18.0 g/dL Hematocrit 31.5 42-52 % Mean Corpuscular Volume 91.6 80-100 fL Mean Corpuscular Hemoglobin 29.9 25-34 pg Mean Corpuscular Hemoglobin Concent 32.7 32-36 g/dl RDW Standard Deviation 52.5 36.4-46.3 fL RDW Coefficient of Variation 15.5 11.5-14.5 % Platelet Count 246 130-400 K/uL Mean Platelet Volume 11.5 7.4-10.4 fL Sodium Level 137 136-145 mmol/L Potassium Level 4.1 3.5-5.1 mmol/L Chloride Level 100 98-107 mmol/L Carbon Dioxide Level 25 21-32 mmol/L Anion Gap 12.0 3-11 mmol/L Blood Urea Nitrogen 40 7-18 mg/dl Creatinine 7.50 0.60-1.40 mg/dl Est Creatinine Clear Calc Drug Dose 9.4 ml/min Estimated GFR () 7.2 Estimated GFR (Non- 6.2 BUN/Creatinine Ratio 5.4 10-20 Random Glucose 93 70-99 mg/dl Calcium Level 9.6 8.5-10.1 mg/dl Bedside Glucose 83 70-99 mg/dl Assessment & Plan Right sided Colitis -Ischemic Colitis? -vitals stable - leukocytosis resolved - abdominal pain much improved, tender on deep palpation, no peritonitis or rigidity - + bowel function Plan: advance diet to full liquids Continue IV antibiotics continue current medical management Continue IV pain medication May have oral pain medication given he is taking PO well will continue to follow Dr. Akers has seen and examined patient, agrees with above
[2017-01-28] MEDS ORDERED: OXYCODONE/ACETAMINOPHEN 5-325 TAB PO PRN (15:15)
[2017-01-28] MEDS: METOPROLOL SUCC 50MG EXT REL TAB PO SCH (19:53)
[2017-01-29] MEDS: PIPERACILL/TAZOBAC IV 3.375 GM in DEXTROSE 5% 100ML 100 ML IV SCH (05:59)
--- NOTE | 2017-01-29 07:10 | Surgery Progress Note ---
Surgery Progress Note Date of Service Jan 29, 2017. Subjective + feeling well, + bowel movement (Diarrhea), + flatus, + diet (tolerated full liquid diet), No nausea, No vomiting Less pain Objective Vital Signs: Date Time Temp Pulse Resp B/P (MAP) Pulse Ox O2 Delivery O2 Flow Rate FiO2 01/29/17 00:00 Room Air 01/28/17 23:00 36.8 80 18 143/69 (93) 93 Room Air 01/28/17 20:00 Room Air 01/28/17 19:58 36.4 71 18 157/79 (105) 94 Room Air 01/28/17 15:31 Room Air 01/28/17 15:16 36.2 65 18 136/63 (87) 98 Room Air 01/28/17 14:04 36.8 78 17 128/67 (87) 97 Room Air 01/28/17 13:34 37.0 71 143/58 (86) 01/28/17 13:20 71 143/58 01/28/17 13:00 70 129/71 01/28/17 12:45 71 118/62 01/28/17 12:30 72 130/84 01/28/17 12:15 72 137/69 01/28/17 12:00 62 118/54 01/28/17 11:45 61 168/69 01/28/17 11:30 66 150/73 01/28/17 11:15 71 142/75 01/28/17 11:00 70 121/83 01/28/17 10:45 70 136/67 01/28/17 10:30 70 133/76 01/28/17 10:15 70 148/80 01/28/17 10:00 65 135/71 01/28/17 09:45 65 149/78 01/28/17 09:44 36.7 67 143/69 (93) 01/28/17 09:32 61 150/70 01/28/17 08:04 36.8 70 23 137/74 (95) 90 01/28/17 08:00 Room Air Abdomen: normal bowel sounds, non distended, soft, + tenderness (Minimal to deep palpation) Laboratory Results: Results Past 24 Hours Test 01/28/17 07:52 01/28/17 07:58 01/28/17 13:53 01/28/17 16:37 Range/Units Bedside Glucose 94 83 124 70-99 mg/dl White Blood Count 9.42 4.8-10.8 K/uL Red Blood Count 3.44 4.7-6.1 M/uL Hemoglobin 10.3 14.0-18.0 g/dL Hematocrit 31.5 42-52 % Mean Corpuscular Volume 91.6 80-100 fL Mean Corpuscular Hemoglobin 29.9 25-34 pg Mean Corpuscular Hemoglobin Concent 32.7 32-36 g/dl RDW Standard Deviation 52.5 36.4-46.3 fL RDW Coefficient of Variation 15.5 11.5-14.5 % Platelet Count 246 130-400 K/uL Mean Platelet Volume 11.5 7.4-10.4 fL Sodium Level 137 136-145 mmol/L Potassium Level 4.1 3.5-5.1 mmol/L Chloride Level 100 98-107 mmol/L Carbon Dioxide Level 25 21-32 mmol/L Anion Gap 12.0 3-11 mmol/L Blood Urea Nitrogen 40 7-18 mg/dl Creatinine 7.50 0.60-1.40 mg/dl Est Creatinine Clear Calc Drug Dose 9.4 ml/min Estimated GFR () 7.2 Estimated GFR (Non- 6.2 BUN/Creatinine Ratio 5.4 10-20 Random Glucose 93 70-99 mg/dl Calcium Level 9.6 8.5-10.1 mg/dl Test 01/28/17 19:56 Range/Units Bedside Glucose 152 70-99 mg/dl Assessment & Plan Colitis resolving Can advance diet as tolerated No surgical indication at this time Will sign off for now Please let us know if we can be of further assistance
[2017-01-29 07:30] VITALS: BP 107/66; PULSE 73; TEMP 36.6; O2SAT 95
[2017-01-29] MEDS: CEROVITE ADV FORMULA TAB PO SCH ×2 (08:49→20:58)
[2017-01-29] MEDS: INSULIN ASPART 100 UNITS/ML 3 ML PEN SC SCH ×4 (08:51→20:43)
[2017-01-29] MEDS: INSULIN GLARGINE SOLOSTAR 100 UNITS/ML 3 ML PEN SQ SCH ×2 (08:52→20:43)
--- NOTE | 2017-01-29 09:36 | Nephrology Progress Note ---
Nephrology Progress Note Date of Service Jan 29, 2017. Chief Complaint ESRD Subjective No acute events overnight. No complaints this morning. Abdominal discomfort improving. Appetite fair and tolerating diet. No fevers or chills. Tolerated HD yesterday, UF 1 kg. Denies shortness of breath. OOB to bathroom without difficulty. Review of Systems A complete review of systems was performed. Pertinent positives are noted above. All other systems are negative. Vital Signs Last 8 Hrs Date Time Temp Pulse Resp B/P (MAP) Pulse Ox O2 Delivery O2 Flow Rate FiO2 01/29/17 07:30 36.6 73 18 107/66 (80) 95 Room Air Last Recorded Weight Weight (Kilograms): 100.100 Physical Exam General Appearance: WD/WN, no apparent distress Head: normocephalic, atraumatic Eyes: normal inspection, sclerae normal ENT: normal ENT inspection, pharynx normal Neck: supple, no JVD Respiratory/Chest: lungs clear, no respiratory distress, no accessory muscle use Cardiovascular: regular rate, rhythm, no gallop, + systolic murmur Abdomen/GI: soft, + distended Extremities/Musculoskelatal: normal inspection, + pertinent finding (AVF with thrill and bruit) Neurologic/Psych: alert, oriented x 3 Family History No pertinent family history Negative for CKD / ESRD Social History Smokeless Tobacco Use: No Alcohol Use: occasionally Drug Use: none Marital Status: Housing Status: lives with family Occupation: retired . has Alzheimers and requires home health nursing. Patient is retired. Current smoker Laboratory Results Past 24 Hours Test 01/28/17 13:53 01/28/17 16:37 01/28/17 19:56 01/29/17 07:28 Bedside Glucose 83 mg/dl (70-99) 124 mg/dl (70-99) 152 mg/dl (70-99) 123 mg/dl (70-99) Allergies Coded Allergies: No Known Allergies (Unverified , 03/21/16) Medications Current Inpatient Medications Medications (Trade) Dose Ordered Sig/Brennan Route Start Time Stop Time Status Last Admin Dose Admin Acetaminophen (Tylenol Tab) 650 mg Q4H PRN PO 01/24/17 02:15 02/23/17 02:14 Metoprolol Succinate (Toprol Xl Tab) 50 mg QPM PO 01/24/17 21:00 02/23/17 20:59 01/28/17 19:53 50 MG Multivitamins/ Minerals (Multivitamin W/ Minerals Tab) 1 tab BID PO 01/24/17 09:00 02/23/17 08:59 01/29/17 08:49 1 TAB Piperacillin Sod/ Tazobactam Sod 3.375 gm/Dextrose 115 ml @ 28.75 mls/ hr Q12@0600,1800 IV 01/24/17 06:00 02/03/17 05:59 01/29/17 05:59 28.75 MLS/HR Ondansetron HCl (Zofran Inj) 4 mg Q6H PRN IV 01/24/17 02:15 02/23/17 02:14 Glucose (Glucose 40% Gel) UD PRN PO 01/24/17 02:15 02/23/17 02:14 Glucose (Glucose Chew Tab) 1 tabs UD PRN PO 01/24/17 02:15 02/23/17 02:14 Dextrose (Dextrose 50% 50ML Syringe) 50 ml UD PRN IV 01/24/17 02:15 02/23/17 02:14 01/26/17 18:11 50 ML Glucagon (Glucagon Inj) 1 mg UD PRN SQ 01/24/17 02:15 02/23/17 02:14 Piperacillin Sod/ Tazobactam Sod (Consult) 1 ea UD PRN N/A 01/24/17 03:00 02/23/17 02:59 Miscellaneous Information (Consult Glycemic Management Pharmacy) 1 ea UD N/A 01/24/17 08:26 02/23/17 08:25 Hydromorphone HCl (Dilaudid Inj) 0.25 mg Q3H PRN IV 01/24/17 10:30 02/07/17 10:29 01/26/17 12:12 0.25 MG Insulin Glargine (Lantus Solostar Pen) BID SQ 01/25/17 21:00 02/24/17 20:59 01/28/17 20:01 10 UNITS Insulin Aspart (novoLOG ASPART) SLIDING SCALE If C... ACHS SC 01/27/17 12:00 02/26/17 11:59 01/29/17 08:51 6 UNITS Oxycodone/ Acetaminophen (Percocet 5-325mg Tab) 1 tab Q4H PRN PO 01/28/17 15:15 02/11/17 15:14 Impression (1) ESRD on hemodialysis (2) Right sided abdominal pain (3) Ischemic colitis (4) Hypertension (5) Diabetes mellitus Mr. Galeano is a 81-year-old male with ESRD on HD. BP and volume status appropriate. No complications with HD yesterday. Recommendations HD TTS Renal diet EPO 4000 QHD while inpatient Medications appropriate for renal function Monitor metabolic profile daily Follow up with outpatient HD TTS at [facility] post discharge
--- NOTE | 2017-01-29 15:02 | Family Medicine Progress Note ---
Progress Note Date of Service Jan 29, 2017. Subjective Pt evaluation today including: conversation w/ patient, physical exam, chart review, conversation w/ strategic consultant, review of inpatient medication list Pain: minimal PO Intake: good Voiding: no voiding problems Patients pain is improving Tolerated a full diet at lunch time Is still having occasional diarrhea Patient says that he doesn't want to be discharged today because he is nervous he will be right back tomorrow No nausea or vomiting Constitutional: No fever, No chills, No sweats Respiratory: No cough, No wheezing, No shortness of breath Cardiovascular: No chest pain, No edema, No palpitations Abdomen: + pain, + diarrhea, No nausea, No vomiting, No constipation Male : No dysuria, No urinary frequency Medications Current Inpatient Medications Medications (Trade) Dose Ordered Sig/Brennan Route Start Time Stop Time Status Last Admin Dose Admin Acetaminophen (Tylenol Tab) 650 mg Q4H PRN PO 01/24/17 02:15 02/23/17 02:14 Metoprolol Succinate (Toprol Xl Tab) 50 mg QPM PO 01/24/17 21:00 02/23/17 20:59 01/28/17 19:53 50 MG Multivitamins/ Minerals (Multivitamin W/ Minerals Tab) 1 tab BID PO 01/24/17 09:00 02/23/17 08:59 01/29/17 08:49 1 TAB Piperacillin Sod/ Tazobactam Sod 3.375 gm/Dextrose 115 ml @ 28.75 mls/ hr Q12@0600,1800 IV 01/24/17 06:00 02/03/17 05:59 01/29/17 05:59 28.75 MLS/HR Ondansetron HCl (Zofran Inj) 4 mg Q6H PRN IV 01/24/17 02:15 02/23/17 02:14 Glucose (Glucose 40% Gel) UD PRN PO 01/24/17 02:15 02/23/17 02:14 Glucose (Glucose Chew Tab) 1 tabs UD PRN PO 01/24/17 02:15 02/23/17 02:14 Dextrose (Dextrose 50% 50ML Syringe) 50 ml UD PRN IV 01/24/17 02:15 02/23/17 02:14 01/26/17 18:11 50 ML Glucagon (Glucagon Inj) 1 mg UD PRN SQ 01/24/17 02:15 02/23/17 02:14 Piperacillin Sod/ Tazobactam Sod (Consult) 1 ea UD PRN N/A 01/24/17 03:00 02/23/17 02:59 Miscellaneous Information (Consult Glycemic Management Pharmacy) 1 ea UD N/A 01/24/17 08:26 02/23/17 08:25 Hydromorphone HCl (Dilaudid Inj) 0.25 mg Q3H PRN IV 01/24/17 10:30 02/07/17 10:29 01/26/17 12:12 0.25 MG Insulin Glargine (Lantus Solostar Pen) BID SQ 01/25/17 21:00 02/24/17 20:59 01/28/17 20:01 10 UNITS Insulin Aspart (novoLOG ASPART) SLIDING SCALE If C... ACHS SC 01/27/17 12:00 02/26/17 11:59 01/29/17 12:35 7 UNITS Oxycodone/ Acetaminophen (Percocet 5-325mg Tab) 1 tab Q4H PRN PO 01/28/17 15:15 02/11/17 15:14 Objective Vital Signs Date Time Temp Pulse Resp B/P (MAP) Pulse Ox O2 Delivery O2 Flow Rate FiO2 01/29/17 08:00 Room Air 01/29/17 07:30 36.6 73 18 107/66 (80) 95 Room Air 01/29/17 00:00 Room Air 01/28/17 23:00 36.8 80 18 143/69 (93) 93 Room Air 01/28/17 20:00 Room Air 01/28/17 19:58 36.4 71 18 157/79 (105) 94 Room Air 01/28/17 15:31 Room Air 01/28/17 15:16 36.2 65 18 136/63 (87) 98 Room Air Physical Exam General Appearance: WD/WN, no apparent distress ENT: hearing grossly normal, pharynx normal Neck: no JVD, trachea midline Respiratory/Chest: lungs clear, no respiratory distress, no accessory muscle use Cardiovascular: regular rate, rhythm, no edema, + systolic murmur (3/6 at RUSB) Abdomen: normal bowel sounds, non tender, soft, no organomegaly Extremities: non-tender, no calf tenderness, normal capillary refill Neurologic/Psychiatric: alert, normal mood/affect, oriented x 3 Laboratory Results Results Past 24 Hours Test 01/28/17 16:37 01/28/17 19:56 01/29/17 07:28 01/29/17 11:34 Range/Units Bedside Glucose 124 152 123 174 70-99 mg/dl Assessment and Plan 81 yo M w/ hx of ESRD on Dialysis , Hx of Kidney Stones, DM, HTN, presented with RLQ pain, RL back pain, afebrile on arrival with Leukocytosis( 18.63), CT findings consistent with Ischemic Colitis. Ischemic Colitis - minimal pain - Pain Control w/IV dilaudid PRN and Zofran PRN for nausea - Will switch to Augmentin PO - General surgery signed off - Tolerating regular diet - c diff negative ESRD on Dialysis - going for dialysis tomorrow - Nephrology on board Anemia - stable - likely secondary to ESRD - will get Erythropoiesis stimulating agent with Dialysis DM - glycemic consult - glucose well controlled HTN - BP controlled - c/w Metoprolol 50 qpm HLD - Statin remains held DVT Prophylaxis -SCD PT/OT Resident Physician Supervision Note: I was present with PGY2 Dr. Aba Gonzalez during the history and exam. I discussed the case with the resident and agree with the findings and plan as documented in the note. Any exceptions or clarifications are listed here: none. Scant left-sided abd pain remains but eating doesn't make it worse. No nausea/emesis. Stool frequency much less. Tolerating diet. VSS afebrile FSBS normal gen - nad neck - no JVD heart - RRR, s1, s2, 2/6 systolic murmur RUSB lungs - CTA b/l today abd - soft, NT, ND, BS+, no HSM ext - no edema A/P: Ischemic colitis - resolved clinically. Change zosyn to augmentin; complete 10 days in total. Diet now regular (ESRD diet). H/H stable. Loose stools are 2nd to the ischemic colitis; not c. diff as toxin was negative. T2DM - pharmacy managing. Controlled. ESRD on HD - nephrology consultation appreciated for HD needs. HD tomorrow. patient asked for d/c tomorrow following HD session. Documented By: Mitul Cronin MD Continued [facility] stay due to: other Discharge planning: home with home health
[2017-01-29 15:14] VITALS: BP 130/64; PULSE 70; TEMP 36.8; O2SAT 98
[2017-01-29 20:57] VITALS: BP 116/68; PULSE 69; TEMP 36.8; O2SAT 98
[2017-01-29] MEDS: METOPROLOL SUCC 50MG EXT REL TAB PO SCH (20:58)
[2017-01-29 23:35] VITALS: BP 124/60; PULSE 92; TEMP 37; O2SAT 94
[2017-01-30] VITALS (17 sets, daily range): BP systolic 97–131; BP diastolic 52–82; PULSE 67–83; TEMP 36.5–37.1; O2SAT 94
[2017-01-30 06:17] LABS: HEMATOCRIT 29.9 % (42-52)
[2017-01-30] MEDS: INSULIN ASPART 100 UNITS/ML 3 ML PEN SC SCH ×2 (07:35→11:00)
[2017-01-30] MEDS: INSULIN GLARGINE SOLOSTAR 100 UNITS/ML 3 ML PEN SQ SCH (07:36)
[2017-01-30] MEDS: CEROVITE ADV FORMULA TAB PO SCH (07:36)
[2017-01-30 07:40] LABS: CALCIUM 9.3 mg/dl (8.5-10.1); CREATININE 7.3 mg/dl (0.60-1.40); PHOSPHORUS 4.8 mg/dl (2.5-4.9); POTASSIUM 4.1 mmol/L (3.5-5.1)
[2017-01-30] MEDS ORDERED: HEPARIN SOD (PORCINE) 1000 UNIT/ML 10 ML VIAL IV SCH (08:00)
--- NOTE | 2017-01-30 08:55 | Nephrology Progress Note ---
Nephrology Progress Note Date of Service Jan 30, 2017. Chief Complaint ESRD Subjective No acute events overnight. Ed is OOB and ambulating in his hospital room this morning. He tolerated breakfast well. He continues to experience some dull left sided abdominal discomfort but ths has significantly improved since admission. Appetite is good. He expects to be discharged home today following hemodialysis. Review of Systems A complete review of systems was performed. Pertinent positives are noted above. All other systems are negative. Vital Signs Last 8 Hrs Date Time Temp Pulse Resp B/P (MAP) Pulse Ox O2 Delivery O2 Flow Rate FiO2 01/30/17 07:27 36.5 73 18 129/73 (91) 94 Room Air Last Recorded Weight Weight (Kilograms): 99.800 Physical Exam General Appearance: WD/WN, no apparent distress Head: normocephalic, atraumatic Eyes: normal inspection, sclerae normal ENT: normal ENT inspection, pharynx normal Neck: supple, no JVD Respiratory/Chest: lungs clear, no respiratory distress, no accessory muscle use Cardiovascular: regular rate, rhythm, no gallop Abdomen/GI: non tender, soft Extremities/Musculoskelatal: normal inspection, no pedal edema, + pertinent finding (AVF with thrill and bruit) Neurologic/Psych: alert, oriented x 3 Family History No pertinent family history Negative for CKD / ESRD Social History Smokeless Tobacco Use: No Alcohol Use: occasionally Drug Use: none Marital Status: Housing Status: lives with family Occupation: retired . has Alzheimers and requires home health nursing. Patient is retired. Current smoker Laboratory Results Past 24 Hours 01/30/17 06:07 01/30/17 06:07 Test 01/29/17 11:34 01/29/17 16:29 01/29/17 19:41 01/30/17 06:07 Bedside Glucose 174 mg/dl (70-99) 130 mg/dl (70-99) 154 mg/dl (70-99) Anion Gap 11.0 mmol/L (3-11) Est Creatinine Clear Calc Drug Dose 9.6 ml/min Estimated GFR () 7.5 Estimated GFR (Non- 6.4 BUN/Creatinine Ratio 4.0 (10-20) Calcium Level 9.3 mg/dl (8.5-10.1) Phosphorus Level 4.8 mg/dl (2.5-4.9) Albumin 2.9 gm/dl (3.4-5.0) Test 01/30/17 07:32 Bedside Glucose 145 mg/dl (70-99) Allergies Coded Allergies: No Known Allergies (Unverified , 03/21/16) Medications Current Inpatient Medications Medications (Trade) Dose Ordered Sig/Brennan Route Start Time Stop Time Status Last Admin Dose Admin Acetaminophen (Tylenol Tab) 650 mg Q4H PRN PO 01/24/17 02:15 02/23/17 02:14 Metoprolol Succinate (Toprol Xl Tab) 50 mg QPM PO 01/24/17 21:00 02/23/17 20:59 01/29/17 20:58 50 MG Multivitamins/ Minerals (Multivitamin W/ Minerals Tab) 1 tab BID PO 01/24/17 09:00 02/23/17 08:59 01/30/17 07:36 1 TAB Ondansetron HCl (Zofran Inj) 4 mg Q6H PRN IV 01/24/17 02:15 02/23/17 02:14 Glucose (Glucose 40% Gel) UD PRN PO 01/24/17 02:15 02/23/17 02:14 Glucose (Glucose Chew Tab) 1 tabs UD PRN PO 01/24/17 02:15 02/23/17 02:14 Dextrose (Dextrose 50% 50ML Syringe) 50 ml UD PRN IV 01/24/17 02:15 02/23/17 02:14 01/26/17 18:11 50 ML Glucagon (Glucagon Inj) 1 mg UD PRN SQ 01/24/17 02:15 02/23/17 02:14 Miscellaneous Information (Consult Glycemic Management Pharmacy) 1 ea UD N/A 01/24/17 08:26 02/23/17 08:25 Hydromorphone HCl (Dilaudid Inj) 0.25 mg Q3H PRN IV 01/24/17 10:30 02/07/17 10:29 01/26/17 12:12 0.25 MG Insulin Glargine (Lantus Solostar Pen) BID SQ 01/25/17 21:00 02/24/17 20:59 01/30/17 07:36 10 UNITS Insulin Aspart (novoLOG ASPART) SLIDING SCALE If C... ACHS SC 01/27/17 12:00 02/26/17 11:59 01/30/17 07:35 3 UNITS Oxycodone/ Acetaminophen (Percocet 5-325mg Tab) 1 tab Q4H PRN PO 01/28/17 15:15 02/11/17 15:14 Amoxicillin/ Clavulanate Potassium (Augmentin Tab) 500 mg DAILY PO 01/30/17 09:00 02/09/17 08:59 01/30/17 07:55 500 MG Heparin Sodium (Porcine) (Heparin Iv Bolus) 2,000 unit TODAY@0800 IV 01/30/17 08:00 01/30/17 23:59 Heparin Sodium (Porcine) (Heparin Iv Bolus) 1,000 unit Q1H IV 01/30/17 08:00 01/30/17 10:01 Impression (1) ESRD on hemodialysis (2) Right sided abdominal pain (3) Ischemic colitis (4) Hypertension (5) Diabetes mellitus Mr. Galeano is a 81-year-old male with ESRD on HD. Orders for inpatient HD have been entered for today. Recommendations HD today per TTS schedule, UF gaol 2 kg Renal diet EPO 4000 QHD while inpatient Medications appropriate for renal function Follow up with outpatient HD TTS at [facility] post discharge
[2017-01-30] MEDS ORDERED: EPOETIN ALFA 4000 UNITS/ML VIAL IV SCH (09:00)
[2017-01-30] MEDS ORDERED: AMOXICILLIN/CLAVULANATE TAB 500 MG TAB PO SCH (09:00)
[2017-01-30] MEDS: HEPARIN SOD (PORCINE) 1000 UNIT/ML 10 ML VIAL IV SCH ×2 (11:30→12:30)
--- NOTE | 2017-01-30 12:06 | Discharge Instructions ---
Discharge Instructions Date of Service Jan 30, 2017. Admission Reason for Admission: Esrd On Hemodialysis,Ischemic Colitis Discharge Discharge Diagnosis / Problem: Ischaemic Colitis Discharge Goals Goal(s): Decrease discomfort, Improve function, Improve disease control, Prevent Disease Progression Activity Recommendations Activity Limitations: per Instructions/Follow-up section . Instructions / Follow-Up Instructions / Follow-Up You were diagnosed with ischaemic colitis on your imaging studies We gave you IV antibiotics and let your bowel rest which have helped resolve the pain You will be discharged today Please follow up with outpatient HD TTS at [facility] Please continue your current medications If you have any worsening abdominal pain, diarrhea, vomiting, fevers then please come back to the hospital Current Hospital Diet Patient's current hospital diet: Renal Diet, Diabetes Type 2 Diet, Regular Diet Discharge Diet Recommended Diet: Diabetes Type 2 Diet, Renal Diet Pending Studies Studies pending at discharge: no Laboratory Results Hemoglobin A1c Test 01/25/17 06:51 Range/Units Estimated Average Glucose 166 mg/dl Hemoglobin A1c 7.4 H 4.5-5.6 % Medical Emergencies . Who to Call and When: Medical Emergencies: If at any time you feel your situation is an emergency, please call 911 immediately. . Non-Emergent Contact Non-Emergency issues call your: Primary Care Provider, [employer] . . "Provider Documentation" section prepared by Aba Gonzalez. . VTE Core Measure Inpt VTE Proph given/why not?: SCD's
[2017-01-30] MEDS ORDERED: AMOX1TAB42 PO (14:10)
--- NOTE | 2017-01-30 15:27 | Discharge Summary ---
Discharge Summary Date of Service Jan 30, 2017. (Aba Gonzalez MD) Discharge Summary Admission Date: Jan 24, 2017 at 02:10 Discharge Date: Jan 30, 2017 Discharge Disposition: Home Principal Diagnosis: Ischaemic Colitis Consultations: General Surgery Nephrology (Aba Gonzalez MD) Problems/Secondary Diagnoses: 1. T2DM 2. ESRD on HD Tu/Th/Sat 3. PAD 4. hyperlipidemia Procedures: CT abd/pelvis - IMPRESSION: 1. Wall thickening of the ascending colon and hepatic flexure of the colon with small amount of associated mesenteric venous gas and portal venous gas. Apparent focal thinning of the wall of the hepatic flexure. Overall, these findings are suspicious for ischemic colitis. Diverticulitis could appear similar but is considered less likely. Surgical consultation is recommended. Findings discussed with Dr. Smith at time of dictation. 2. Extensive atherosclerotic plaque of the abdominal aorta, suboptimally assessed on this unenhanced exam. (Mitul Cronin MD) Medication Reconciliation New Medications: Amoxicillin & Pot Clavulanate (Amoxicillin/Clavulanate P) 1 Tab Tab 500 MG PO DAILY for 3 Days, #3 TAB Continued Medications: Amlodipine Besylate (Norvasc) 5 Mg Tab 5 MG PO QPM, TAB Aspirin (Aspir-81) 81 Mg Tab 81 MG PO QAM Atorvastatin (Atorvastatin Calcium) 20 Mg Tab 20 MG PO HS Insulin Aspart (Novolog Flexpen) 100 Units/Ml Inj 18 UNITS SC QAM WITH BREAKFAST Insulin Aspart (Novolog Flexpen) 100 Units/Ml Inj 19 UNITS SQ LUNCH Insulin Aspart (Novolog Flexpen) 100 Units/Ml Inj 22 UNITS SQ QPM EVENING MEAL Insulin Glargine (Lantus Solostar) 100 Unit/Ml Inj 35-45 UNITS SQ QPM, PEN Lidocaine-Prilocaine (Emla) 1 Cre Cre 1 APPLN TOP UD, 3 Refills apply to avf 30 min prior to dialysis Metoprolol Succinate (Toprol Xl) 50 Mg Tabcr 50 MG PO QPM, TAB Ocuvite Preservision (Ocuvite Preservision) 1 Tab Tab 1 TAB PO BID, TAB Oxycodone/Acetaminophen 5MG/325MG (Percocet 5MG/325MG) Tab 1-2 TABLETS PO HS PRN for Pain, TAB PAIN Sodium Bicarbonate (Antacid) (Sodium Bicarbonate) 650 Mg Tab 1 TAB PO BIDM, 5 Refills Vitamin B Cmplx/Vitc/Folic Ac (Nephrocaps) 1 Cap Cap 1 CAP PO QPM, CAP TAKE ON DIALYSIS DAYS, AFTER DIALYSIS. Discharge Exam Patient doing well and in no distress. Still having very mild pain in LLQ but able to tolerate full diet, denies any nausea or vomiting and only have 2-3 loose bowel movements without any blood. Went for dialysis and will be going home this afternoon Review of Systems: Constitutional: No fever, No chills Respiratory: No cough, No wheezing, No shortness of breath Cardiovascular: No chest pain, No claudication, No palpitations Abdomen: + pain, + diarrhea, No nausea, No vomiting, No constipation Genitourinary - Male: No hematuria, No dysuria Integumentary: No rash, No itch, No new/changing skin lesions Physical Exam: General Appearance: WD/WN, no apparent distress Eyes: normal inspection, sclerae normal ENT: hearing grossly normal, pharynx normal Neck: supple, no JVD, no carotid bruits Respiratory/Chest: lungs clear, no respiratory distress, no accessory muscle use Cardiovascular: regular rate, rhythm, normal peripheral pulses, + systolic murmur (3/6 at RUSB) Abdomen / GI: normal bowel sounds, non tender, soft Extremities: no calf tenderness, no pedal edema, normal range of motion, non -tender Neurologic/Psychiatric: alert, normal mood/affect, oriented x 3 (Aba Gonzalez MD) Hospital Course The patient is a 81-year-old male with T2DM and ESRD who presented on 01/23 with a complaint of abdominal pain mostly on the right side. He stated that over the last few months he has been having intermittent abdominal discomfort but never this severe. The pain became more continuous and more severe located on the right side. He was also having some nausea and diarrhea with blood but did not vomit. He had a CT scan in the ED which showed thickening of the ascending colon and hepatic flexure with small amount of associated mesenteric venous gas and portal venous gas. The patient was admitted to the smalls on 01/24 and had general surgery consult on the patient for further management. As the patient was at high risk for surgical complications it was decided to treat the patient conservatively with IV antibiotics, bowel rest and medication for pain control. He was started on IV Zosyn and was give IV dilaudid PRN. On 01/27 the patients diet was advanced as his abdominal pain was subsiding and he was no longer requiring IV dilaudid. Over the following two days his diet was advanced to a full regular diet. On 01/29 he was switched over from IV antibiotics to Augmentin and on 01/30 he was discharged home with 3 more days of antibiotics in order to finish a 10 day course of antibiotics. He received Dialysis throughout his treatment and had Nephrology monitoring his Hgb and renal function. He was discharged on 01/30 hemodynamically stable and in no acute distress Total Time Spent: Less than 30 minutes This includes examination of the patient, discharge planning, medication reconciliation, and communication with other providers. (Aba Gonzalez MD) Resident Physician Supervision Note: I was present with PGY2 Dr. Aba Gonzalez during the discharge history and exam. I discussed the case with the resident and agree with the findings and plan as documented in the discharge summary. Any exceptions or clarifications are listed here: none. 81yo male with T2DM, ESRD on HD, hyperlipidemia, and PAD who presented with ischemic colitis. CT abd/pelvis confirmed the colitis and also demonstrated significant PAD of his intra-abdominal vasculature. He was seen in consult by general surgery who recommended conservative treatment of his ischemic colitis. C. diff toxin was negative. He was treated with broad-spectrum IV antibiotic therapy and bowel rest with gradual improvement in all GI symptoms. He will complete a course of oral augmentin after discharge. Nephrology managed his hemodialysis needs while hospitalized. Close follow-up will be needed to ensure no recurrent symptoms. He was counseled on the pathophysiology of the condition. Discharge exam - gen - nad neck - no JVD heart - 2/6 systolic murmur heard RUSB/LSB, RRR lungs - CTA b/l abd - soft, scant tenderness LLQ, BS+, no peritoneal signs, no HSM ext - no edema; left arm AV fistula in place with +thrill Documented By: Mitul Cronin MD (Mitul Cronin MD) Discharge Instructions Please refer to the electronic Patient Visit Report (Discharge Instructions) for additional information. (Aba Gonzalez MD) Additional Copies To Tho Peraza M.D.; Reji Cameron M.D.
[2017-03-26] MEDS ORDERED: DIPH25CA65 PO (14:30)
[2017-03-27] MEDS ORDERED: PRED10TA PO (12:51)
[2017-03-27] MEDS ORDERED: HYDR1OIN EXT (12:51)
[2017-04-01] MEDS ORDERED: METO-217 PO (11:17)
[2017-04-06] MEDS ORDERED: AMLO5TAB2 PO (11:02)
[2017-04-06] MEDS ORDERED: SODI650T8 PO (11:03)
[2017-04-06] MEDS ORDERED: NVLGI/PEN SC (11:17)
[2017-04-06] MEDS ORDERED: ASPI-232 PO (11:17)
[2017-04-06] MEDS ORDERED: NVLGI/PEN SQ ×2 (11:17)
[2017-04-06] MEDS ORDERED: MULT-190 PO (11:44)
[2017-04-06] MEDS ORDERED: B-CO1CAP17 PO (13:51)
[2017-04-06] MEDS ORDERED: ZNTT/150 PO (13:51)
[2017-04-06] MEDS ORDERED: LIDO1CRE58 TOP (13:51)
== END 2017-01-30 15:00 | disposition home or self-care (01) | DRG 393 ==
LOC: EDBD 21:24 → C.EDA 21:25 → C.MED 01-24 02:10 → ENRESERV 01-24 02:18
PROVIDERS: ADMIT Hospitalist; ATTEND Internal Medicine
DX: K55.9 Vascular disorder of intestine, unspecified (principal); N18.6 End stage renal disease; I12.0 Hypertensive chronic kidney disease with stage 5 chronic kidney disease or end stage renal disease; D63.1 Anemia in chronic kidney disease; E11.22 Type 2 diabetes mellitus with diabetic chronic kidney disease; E78.5 Hyperlipidemia, unspecified; Z79.4 Long term (current) use of insulin; Z79.82 Long term (current) use of aspirin; Z79.899 Other long term (current) drug therapy; F17.200 Nicotine dependence, unspecified, uncomplicated

== ENCOUNTER → 2017-02-05 | Outpatient (CLI) | payer OTHER ==
[~2017-02-05] MED LIST changes: +AMLO5TAB2 PO; +AMOX1TAB42 PO; +ASPI-232 PO; +INSDGIPEN SQ; -INSUINJ4 SC; +METO-217 PO; +MULT-190 PO; +NVLGI/PEN SC; +NVLGI/PEN SQ; +SODI650T8 PO
--- NOTE | 2017-02-05 12:02 | DIAGNOSTIC IMAGING REPORT ---
LEFT SHOULDER MIN 2 VIEWS ROUTINE HISTORY:81 [id number] Pain in joint of left shoulder COMPARISON: Chest radiographs 12/05/2015. TECHNIQUE: 3 views of the left shoulder. FINDINGS: The bones are moderately demineralized. Linear calcification is seen superior to the greater tuberosity compatible with calcific tendinosis of the rotator cuff. There is moderate glenohumeral osteoarthritis and mild to moderate acromioclavicular osteoarthritis. No acute fracture or dislocation. Imaged left lung willett appear clear. IMPRESSION: 1. No acute fracture or dislocation of the left shoulder. 2. 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 3. 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 The above report was generated using voice recognition software. It may contain grammatical, syntax or spelling errors. Electronically signed by: Néstor Nguyễn M.D. 02/05/2017 12:01 PM Dictated Date/Time: 02/05/2017 11:54 AM
== END | disposition home or self-care (01) ==
LOC: C.RAD1850 10:49
PROVIDERS: ATTEND Physician Assistant Medical
DX: M25.512 Pain in left shoulder (principal); M19.012 Primary osteoarthritis, left shoulder; M75.32 Calcific tendinitis of left shoulder

== ENCOUNTER → 2017-03-08 | Outpatient (CLI) | payer OTHER ==
[~2017-03-08] MED LIST changes: +B-CO1CAP17 PO; +DIPH25CA65 PO; +HYDR-5688 PO; +HYDR1OIN EXT; +LIDO1CRE58 TOP; +PRED10TA PO; +TPRSR/50 PO; +ZNTT/150 PO
[2017-03-08 17:55] LABS: BASO % 0.7 %; BASO ABS # 0.07 K/uL (0-0.2); COMPLETE YES; EOS % 2.5 %; HEMATOCRIT 37.6 % (42-52); IG% 0.5 %; LYMPH % 16.8 %; LYMPH ABS # 1.62 K/uL (1.2-3.4); MEAN CELL VOLUME 99.7 fL (80-100); MEAN CORPUSCULAR HEMOGLOBIN 30.5 pg (25-34); MEAN CORPUSCULAR HGB CONC 30.6 g/dl (32-36); MEAN PLATELET VOLUME 12.1 fL (7.4-10.4); MONO % 7.6 %; NEUT % 71.9 %; PLATELET COUNT 308 K/uL (130-400); RED BLOOD COUNT 3.77 M/uL (4.7-6.1); WHITE BLOOD COUNT 9.64 K/uL (4.8-10.8)
[2017-03-08 18:11] LABS: URINE APPEARANCE CLEAR (CLEAR); URINE BILIRUBIN NEG (NEG); URINE COLOR YELLOW; URINE EPITHELIAL CELL AUTO 0-5 /lpf (0-5); URINE NITRITE NEG (NEG); URINE PH 8.5 (4.5-7.5); URINE SPECIFIC GRAVITY 1.017 (1.000-1.030); UROBILINOGEN NEG (NEG); ZZUR CULT IF INDIC CLEAN CATCH NO
[2017-03-08 18:27] LABS: MANUAL MICROSCOPIC REQUIRED? NO; REVIEW REQ? NO; SULFASALICYLIC ACID POS (NEG)
[2017-03-11 06:06] LABS: ALBUMIN % 47.03 %; ALPHA-2-GLOBULIN % 15.82 %; BETA GLOBULIN % 17.66 %; CREATININE UR 55 MG/DL (20-370); GAMMA GLOBULIN 0.8 G/DL (0.8-1.7); GAMMA GLOBULIN % 13.23 %; TOTAL PROTEIN 6.8 G/DL (6.2-8.3)
== END | disposition home or self-care (01) ==
LOC: C.LABBFT 11:28
PROVIDERS: ATTEND Physician Assistant Medical
DX: R11.2 Nausea with vomiting, unspecified (principal); R19.7 Diarrhea, unspecified; G62.9 Polyneuropathy, unspecified; E11.9 Type 2 diabetes mellitus without complications

== ENCOUNTER → 2017-03-15 | Outpatient (CLI) | payer OTHER | END | disposition home or self-care (01) | LOC: C.LABSPEC 07:05 | PROVIDERS: ATTEND Internal Medicine Pulmonary Disease | DX: E11.9 Type 2 diabetes mellitus without complications (principal); N18.5 Chronic kidney disease, stage 5; R19.7 Diarrhea, unspecified; K55.9 Vascular disorder of intestine, unspecified ==

== ENCOUNTER 2017-03-18 09:38 | Inpatient (IN) | payer OTHER ==
[~2017-03-18] VITALS: Ht 175.3 cm; Wt 98.2 kg
[~2017-03-18 09:38] MED LIST changes: -AMLO5TAB2 PO; -ASPI-232 PO; -B-CO1CAP17 PO; -DIPH25CA65 PO; -HYDR-5688 PO; -HYDR1OIN EXT; -INSDGIPEN SQ; -LIDO1CRE58 TOP; -METO-217 PO; -MULT-190 PO; -NVLGI/PEN SC; -NVLGI/PEN SQ; -PRED10TA PO; -SODI650T8 PO; -TPRSR/50 PO; -ZNTT/150 PO
[2017-03-18] MEDS ORDERED: SODIUM CHLORIDE 0.9% 500ML 500 ML IV STA (10:10)
[2017-03-18] MEDS ORDERED: ONDANSETRON INJ 2 MG/ML 2 ML VIAL IV STA (10:13)
[2017-03-18] MEDS ORDERED: HYDROmorphone INJ 0.5 MG/0.5 ML SYR IV STA (10:13)
[2017-03-18] MEDS ORDERED: OPTIRAY 320 IV PRN (10:30)
[2017-03-18 10:57] LABS: BASO ABS # 0.09 K/uL (0-0.2); COMPLETE YES; EOS % 1.7 %; HEMATOCRIT 35.7 % (42-52); IG% 0.3 %; LYMPH % 15.4 %; LYMPH ABS # 1.41 K/uL (1.2-3.4); MEAN CELL VOLUME 94.2 fL (80-100); MEAN CORPUSCULAR HEMOGLOBIN 30.9 pg (25-34); MEAN CORPUSCULAR HGB CONC 32.8 g/dl (32-36); MEAN PLATELET VOLUME 11.6 fL (7.4-10.4); MONO % 10.5 %; NEUT % 71.1 %; PLATELET COUNT 244 K/uL (130-400); RED BLOOD COUNT 3.79 M/uL (4.7-6.1); WHITE BLOOD COUNT 9.17 K/uL (4.8-10.8)
[2017-03-18 11:00] LABS: ISTAT CREATININE 8.6 mg/dl (0.6-1.3); ISTAT HEMOGLOBIN 12.6 g/dl (14.0-18.0); ISTAT IONIZED CALCIUM 1.1 mmol/l (1.12-1.32)
[2017-03-18 11:27] LABS: BUN/CREATININE RATIO 7.6 (10-20); CALCIUM 9.6 mg/dl (8.5-10.1); CREATININE 8.4 mg/dl (0.60-1.40); POTASSIUM 5.5 mmol/L (3.5-5.1)
--- NOTE | 2017-03-18 12:55 | DIAGNOSTIC IMAGING REPORT ---
ANGIO ABD/PELVIS WITH CONTRAST CLINICAL HISTORY: 81 years-old Male with acute right-sided abdominal pain COMPARISON STUDY: CT abdomen and pelvis 01/23/2017 TECHNIQUE: Following the IV administration of 94 mL of Optiray 320, CT angiogram of the abdomen and pelvis was performed from the lung bases the proximal femora. Images are reviewed in the axial, sagittal, and coronal planes. 3-D MIPS images are created and assessed. IV contrast was administered without complication. A dose lowering technique was utilized adhering to the principles of ALARA. CT DOSE: 1267.66 mGy.cm FINDINGS: CTA: Mild multichamber cardiac enlargement is noted. There is moderate to extensive mixed plaquing of the abdominal aorta and iliac vascularity. 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 There is atherosclerotic plaquing at the origins of the celiac trunk, superior and inferior mesenteric arteries without high-grade stenosis or occlusion. Additional plaquing is seen at the origin of the renal arteries bilaterally, left greater than right with approximately 50% stenosis on the left. Note is made of dual arterial supply to the bilateral kidneys. There is additional plaquing involving the bilateral external and common femoral arteries without high-grade stenosis. CT ABDOMEN AND PELVIS: There is mild dependent bibasilar atelectasis. No pneumoperitoneum. There is a hyperattenuating 2.7 x 1.9 similar lesion of the hepatic dome which was not definitely seen on the comparison noncontrast study. This is nonspecific on this single phase study. Spleen is diminutive in size. Gallbladder and right adrenal gland are unremarkable. There is moderate pancreatic atrophy. Nonspecific soft tissue attenuating 1.7 x 1.4 similar lesion of the left adrenal gland appears unchanged, statistically benign. Kidneys appear mildly atrophic. Probable cyst of the superior pole right kidney is seen, 2.9 x 2.3 cm. Probable additional cysts are present bilaterally. Urinary bladder is unremarkable. The prostate is enlarged. No bulky retroperitoneal adenopathy identified. No bowel obstruction. No focal bowel wall thickening identified. There is resolution of the previously noted pneumatosis of the ascending colon as well as the mesenteric and portal venous gas. No evidence of focal colitis or ischemic bowel disease. The appendix appears normal. Few loops of fluid-filled nondilated small bowel lower pelvis are likely physiologic. There is mild skin thickening and subcutaneous stranding of the lower anterior abdominal wall. Multifocal degenerative changes are seen. No acute bony abnormality identified. IMPRESSION: 1. No acute intra-abdominal or intrapelvic abnormality identified. No evidence of focal colitis or ischemic bowel disease. 2. Mild fusiform dilation of the infrarenal abdominal aorta measures up to 3.1 x 2.8 cm with background moderate to extensive atherosclerotic vascular disease. 3. Atherosclerotic plaquing at the origin of the left renal artery causes approximately 50% stenosis. 4. Nonspecific hyperattenuating lesion of the hepatic dome is seen, 2.7 x 1.9 cm. This could be further evaluated with CT or MRI liver protocol. 5. Probable mild cellulitis of the lower anterior abdominal wall. 6. Normal appendix. The above report was generated using voice recognition software. It may contain grammatical, syntax or spelling errors. Electronically signed by: Néstor Nguyễn M.D. 03/18/2017 12:54 PM Dictated Date/Time: 03/18/2017 12:39 PM
[2017-03-18 13:11] LABS: URINE APPEARANCE CLEAR (CLEAR); URINE BILIRUBIN NEG (NEG); URINE COLOR YELLOW; URINE EPITHELIAL CELL AUTO 0-5 /lpf (0-5); URINE NITRITE NEG (NEG); URINE PH 8.5 (4.5-7.5); URINE SPECIFIC GRAVITY 1.017 (1.000-1.030); UROBILINOGEN NEG (NEG); ZZUR CULT IF INDIC CLEAN CATCH NO
[2017-03-18 13:24] LABS: MANUAL MICROSCOPIC REQUIRED? NO; REVIEW REQ? NO; SULFASALICYLIC ACID POS (NEG)
[2017-03-18] MEDS ORDERED: METRONIDAZOLE 500MG / 100ML NSS IV STA (13:27)
[2017-03-18] MEDS ORDERED: CIPROFLOXACIN 400MG / 200ML D5W IV STA (13:27)
[2017-03-18 13:56] VITALS: O2SAT 94; Ht 175.3 cm; Wt 98.2 kg
[2017-03-18] MEDS ORDERED: ONDANSETRON INJ 2 MG/ML 2 ML VIAL IV PRN (15:45)
[2017-03-18] MEDS ORDERED: LIDOCAINE/PRILOCAINE 2.5% EA CRM EXT PRN (15:45)
[2017-03-18] MEDS ORDERED: TEMAZEPAM 7.5 MG CAP PO PRN (15:45)
[2017-03-18 16:45] VITALS: BP 164/72; PULSE 92; TEMP 36.4; O2SAT 97
--- NOTE | 2017-03-18 16:56 | EMERGENCY ROOM VISIT NOTE ---
History Report prepared by Devon: Bella Fernandez Under the Supervision of: Erika ClarkO. First contact with patient: 09:54 Chief Complaint: ABDOMINAL PAIN Stated Complaint: ABD PAIN/BACK PAIN History of Present Illness The patient is a 81 year old male who presents to the Emergency Room with complaints of worsening right-sided abdominal pain for the past week. The patient is on dialysis. He was supposed to have it today and two days ago. He did not go to dialysis two days ago because his pain was too severe. He last had dialysis five days ago. The patient states that his abdominal pain radiates across and into his lower back. This is new. The patient was admitted to the hospital in early January for 8 days for ischemic colitis. He states that his current pain feels similar to his previous episode of ischemic colitis. He states that everything he eats or drinks goes right through him. He has been having clear, watery diarrhea for the past week. He rates his current pain as a 6/10 in severity. Pt denies headache, fevers, cough, chest pain, shortness of breath, nausea, vomiting, pain with urination, hematochezia, melena, leg pain or swelling, numbness, and weakness. He denies any recent trauma or falls. He denies any previous abdominal surgeries. Negative C-diff on 03/15/2017. Source of History: patient Onset: 1 week ago Position: abdomen (right sided) Symptom Intensity: 6/10 Quality: other (radiating) Timing: worsening Associated Symptoms: + back pain, + diarrhea, No fevers, No headache, No cough, No chest pain, No SOB, No nausea, No vomiting, No melena, No hematochezia , No urinary symptoms, No weakness, No numbness Review of Systems See HPI for pertinent positives & negatives. A total of 10 systems reviewed and were otherwise negative. 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 (4) Hypertension (5) Ischemic colitis Family History No pertinent family history Social History Smoking Status: Current Every Day Smoker Alcohol Use: occasionally Drug Use: none Marital Status: Occupation Status: retired Current/Historical Medications Scheduled Amlodipine Besylate (Norvasc), 5 MG PO QAM Aspirin (Aspir-81), 81 MG PO QAM Atorvastatin (Atorvastatin Calcium), 20 MG PO HS Insulin Aspart (Novolog Flexpen), 18 UNITS SC QAM Insulin Aspart (Novolog Flexpen), 19 UNITS SQ LUNCH Insulin Aspart (Novolog Flexpen), 22 UNITS SQ QPM Insulin Glargine (Lantus Solostar), 30-35 UNITS SQ HS Lidocaine-Prilocaine (Pcpmxuzaq-Gciljdskht-Xoyn 2.5-2.5 %), 1 APPLN TOP UD Metoprolol Succinate (Toprol Xl), 50 MG PO QPM Ocuvite Preservision (Ocuvite Preservision), 2 TAB PO DAILY Ranitidine (Zantac), 150 MG PO HS Sodium Bicarbonate (Antacid) (Sodium Bicarbonate), 1 TAB PO BIDM Vitamin B Cmplx/Vitc/Folic Ac (Nephrocaps), 1 CAP PO DAILY Allergies Coded Allergies: No Known Allergies (Unverified , 03/18/17) Physical Exam Vital Signs Date Time Temp Pulse Resp B/P (MAP) Pulse Ox O2 Delivery O2 Flow Rate FiO2 03/18/17 16:36 36.5 87 16 173/88 99 03/18/17 16:31 87 16 173/88 03/18/17 15:31 157/93 03/18/17 15:30 88 15 03/18/17 15:00 86 16 162/88 99 03/18/17 14:52 88 18 166/80 98 Room Air 03/18/17 13:56 94 Room Air 03/18/17 13:52 90 16 175/102 94 Room Air 03/18/17 13:01 91 18 165/83 100 Room Air 03/18/17 11:20 87 18 159/85 100 Room Air 03/18/17 10:12 99 Room Air 03/18/17 10:04 94 03/18/17 09:50 36.5 106 18 174/75 98 Room Air Physical Exam GENERAL: alert, sitting up in bed, disheveled, chronically ill appearing, well nourished, mild distress, non-toxic EYE EXAM: normal conjunctiva, PERRL and EOM's grossly intact OROPHARYNX: no exudate, no erythema, lips, buccal mucosa, and tongue normal and mucous membranes are moist NECK: supple, no nuchal rigidity, no adenopathy, non-tender LUNGS: Clear to auscultation. Normal chest wall mechanics HEART: no murmurs, S1 normal and S2 normal ABDOMEN: abdomen soft, tender to palpation on the right side of the abdomen, normo-active bowel sounds, no masses, no rebound or guarding. BACK: Back is symmetrical on inspection and there is no deformity, no midline tenderness, no CVA tenderness. SKIN: no rashes and no bruising UPPER EXTREMITIES: Left upper extremity with fistula located in the left forearm , positive thrill and bruits LOWER EXTREMITIES: No pitting edema. NEURO EXAM: Normal sensorium, cranial nerves II-XII grossly intact, normal speech, no gross weakness of arms, no gross weakness of legs. Medical Decision & Procedures ER Provider Diagnostic Interpretation: Radiology results as stated below per my review and the radiologist's interpretation: ANGIO ABD/PELVIS WITH CONTRAST CLINICAL HISTORY: 81 years-old Male with acute right-sided abdominal pain COMPARISON STUDY: CT abdomen and pelvis 01/23/2017 TECHNIQUE: Following the IV administration of 94 mL of Optiray 320, CT angiogram of the abdomen and pelvis was performed from the lung bases the proximal femora. Images are reviewed in the axial, sagittal, and coronal planes. 3-D MIPS images are created and assessed. IV contrast was administered without complication. A dose lowering technique was utilized adhering to the principles of ALARA. CT DOSE: 1267.66 mGy.cm FINDINGS: CTA: Mild multichamber cardiac enlargement is noted. There is moderate to extensive mixed plaquing of the abdominal aorta and iliac vascularity. 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 There is atherosclerotic plaquing at the origins of the celiac trunk, superior and inferior mesenteric arteries without high-grade stenosis or occlusion. Additional plaquing is seen at the origin of the renal arteries bilaterally, left greater than right with approximately 50% stenosis on the left. Note is made of dual arterial supply to the bilateral kidneys. There is additional plaquing involving the bilateral external and common femoral arteries without high-grade stenosis. CT ABDOMEN AND PELVIS: There is mild dependent bibasilar atelectasis. No pneumoperitoneum. There is a hyperattenuating 2.7 x 1.9 similar lesion of the hepatic dome which was not definitely seen on the comparison noncontrast study. This is nonspecific on this single phase study. Spleen is diminutive in size. Gallbladder and right adrenal gland are unremarkable. There is moderate pancreatic atrophy. Nonspecific soft tissue attenuating 1.7 x 1.4 similar lesion of the left adrenal gland appears unchanged, statistically benign. Kidneys appear mildly atrophic. Probable cyst of the superior pole right kidney is seen, 2.9 x 2.3 cm. Probable additional cysts are present bilaterally. Urinary bladder is unremarkable. The prostate is enlarged. No bulky retroperitoneal adenopathy identified. No bowel obstruction. No focal bowel wall thickening identified. There is resolution of the previously noted pneumatosis of the ascending colon as well as the mesenteric and portal venous gas. No evidence of focal colitis or ischemic bowel disease. The appendix appears normal. Few loops of fluid-filled nondilated small bowel lower pelvis are likely physiologic. There is mild skin thickening and subcutaneous stranding of the lower anterior abdominal wall. Multifocal degenerative changes are seen. No acute bony abnormality identified. IMPRESSION: 1. No acute intra-abdominal or intrapelvic abnormality identified. No evidence of focal colitis or ischemic bowel disease. 2. Mild fusiform dilation of the infrarenal abdominal aorta measures up to 3.1 x 2.8 cm with background moderate to extensive atherosclerotic vascular disease. 3. Atherosclerotic plaquing at the origin of the left renal artery causes approximately 50% stenosis. 4. Nonspecific hyperattenuating lesion of the hepatic dome is seen, 2.7 x 1.9 cm. This could be further evaluated with CT or MRI liver protocol. 5. Probable mild cellulitis of the lower anterior abdominal wall. 6. Normal appendix. The above report was generated using voice recognition software. It may contain grammatical, syntax or spelling errors. Electronically signed by: Néstor Nguyễn M.D. 03/18/2017 12:54 PM Dictated Date/Time: 03/18/2017 12:39 PM Laboratory Results 03/18/17 10:42 Red Blood Count 3.79, Mean Corpuscular Volume 94.2, Mean Corpuscular Hemoglobin 30.9, Mean Corpuscular Hemoglobin Concent 32.8, Mean Platelet Volume 11.6, Neutrophils (%) (Auto) 71.1, Lymphocytes (%) (Auto) 15.4, Monocytes (%) (Auto) 10.5, Eosinophils (%) (Auto) 1.7, Basophils (%) (Auto) 1.0, Neutrophils # (Auto ) 6.52, Lymphocytes # (Auto) 1.41, Monocytes # (Auto) 0.96, Eosinophils # (Auto ) 0.16, Basophils # (Auto) 0.09 03/18/17 10:42 Test 03/18/17 10:42 03/18/17 10:47 03/18/17 11:10 03/18/17 12:00 White Blood Count 9.17 K/uL (4.8-10.8) Red Blood Count 3.79 M/uL (4.7-6.1) Hemoglobin 11.7 g/dL (14.0-18.0) Hematocrit 35.7 % (42-52) Mean Corpuscular Volume 94.2 fL (80-100) Mean Corpuscular Hemoglobin 30.9 pg (25-34) Mean Corpuscular Hemoglobin Concent 32.8 g/dl (32-36) Platelet Count 244 K/uL (130-400) Mean Platelet Volume 11.6 fL (7.4-10.4) Neutrophils (%) (Auto) 71.1 % Lymphocytes (%) (Auto) 15.4 % Monocytes (%) (Auto) 10.5 % Eosinophils (%) (Auto) 1.7 % Basophils (%) (Auto) 1.0 % Neutrophils # (Auto) 6.52 K/uL (1.4-6.5) Lymphocytes # (Auto) 1.41 K/uL (1.2-3.4) Monocytes # (Auto) 0.96 K/uL (0.11-0.59) Eosinophils # (Auto) 0.16 K/uL (0-0.5) Basophils # (Auto) 0.09 K/uL (0-0.2) RDW Standard Deviation 55.2 fL (36.4-46.3) RDW Coefficient of Variation 16.0 % (11.5-14.5) Immature Granulocyte % (Auto) 0.3 % Immature Granulocyte # (Auto) 0.03 K/uL (0.00-0.02) Est Creatinine Clear Calc Drug Dose 8.3 ml/min Estimated GFR () 6.3 Estimated GFR (Non- 5.4 BUN/Creatinine Ratio 7.6 (10-20) Calcium Level 9.6 mg/dl (8.5-10.1) Total Bilirubin 0.4 mg/dl (0.2-1) Direct Bilirubin 0.1 mg/dl (0-0.2) Aspartate Amino Transf (AST/SGOT) 11 U/L (15-37) Alanine Aminotransferase (ALT/SGPT) 17 U/L (12-78) Alkaline Phosphatase 95 U/L (45-117) Total Protein 7.3 gm/dl (6.4-8.2) Albumin 3.6 gm/dl (3.4-5.0) Lipase 135 U/L (73-393) Bedside Hemoglobin 12.6 g/dl (14.0-18.0) Bedside Hematocrit 37 % (42-52) Bedside Sodium 138 mEq/L (135-144) Bedside Potassium 5.5 mEq/L (3.3-5.0) Bedside Chloride 108 mEq/L (101-112) Bedside Total CO2 20 mEq/l (24-31) Anion Gap 16.0 mmol/L (16-25) Bedside Blood Urea Nitrogen 62 mg/dl (7-18) Bedside Creatinine 8.6 mg/dl (0.6-1.3) Bedside Glucose (other) 205 mg/dl (70-99) Bedside Ionized Calcium (Cathy) 1.10 mmol/l (1.12-1.32) Lactic Acid Level 1.2 mmol/L (0.4-2.0) Urine Color YELLOW Urine Appearance CLEAR (CLEAR) Urine pH 8.5 (4.5-7.5) Urine Specific [place] 1.017 (1.000-1.030) Urine Protein 2+ (NEG) Urine Glucose (UA) 2+ (NEG) Urine Ketones TRACE (NEG) Urine Occult Blood TRACE (NEG) Urine Nitrite NEG (NEG) Urine Bilirubin NEG (NEG) Urine Urobilinogen NEG (NEG) Urine Leukocyte Esterase NEG (NEG) Urine WBC (Auto) 1-5 /hpf (0-5) Urine RBC (Auto) 0-4 /hpf (0-4) Urine Hyaline Casts (Auto) 0 /lpf (0-5) Urine Epithelial Cells (Auto) 0-5 /lpf (0-5) Urine Bacteria (Auto) NEG (NEG) Laboratory results per my review. Medications Administered Medications (Trade) Dose Ordered Sig/Brennan Route Start Time Stop Time Status Last Admin Dose Admin Sodium Chloride 500 ml @ 999 mls/hr Q31M STAT IV 03/18/17 10:10 03/18/17 10:40 DC 03/18/17 11:17 999 MLS/HR Hydromorphone HCl (Dilaudid Inj) 0.5 mg NOW STAT IV 03/18/17 10:13 03/18/17 10:14 DC 03/18/17 11:17 0.5 MG Ondansetron HCl (Zofran Inj) 4 mg NOW STAT IV 03/18/17 10:13 03/18/17 10:14 DC 03/18/17 11:17 4 MG Metronidazole (Flagyl / Nss) 500 mg NOW STAT IV 03/18/17 13:27 03/18/17 13:28 DC 03/18/17 13:45 500 MG Ciprofloxacin/ Dextrose (Cipro / D5W) 400 mg NOW STAT IV 03/18/17 13:27 03/18/17 13:28 DC 03/18/17 13:45 400 MG ED Course ED COURSE: Vital signs were reviewed and showed hypertensive. The patients medical record was reviewed The above diagnostic studies were performed and reviewed. ED treatments and interventions as stated above. 0954: The patient was evaluated in room B5. A complete history and physical examination was performed. 1010: NSS 500 ml @ 999 mls.hr IV 1013: Zofran 4 mg IV, Dilaudid 0.5 mg IV 1325: I spoke with Dr. Ambrose of general surgery regarding the patient's treatment plan. He recommends that the patient remain in the hospital for observation. 1327: Cipro/D5W 400 mg IV, Flagyl 500 mg IV 1332: Upon reevaluation, the patient is resting comfortably. I discussed my findings with the patient and he understands and agrees with the treatment plan. Based on the patients age, coexisting illnesses, exam and lab findings the decision to treat as an inpatient was made. The patient remained stable while under my care. The patient will be evaluated for further management. 1357: I reviewed the patient's case with Dr. Brown. [facility] will evaluate the patient for further management. Medical Decision Differential diagnoses includes but is not limited to gastritis, peptic ulcer disease, GERD, gallbladder disease, pancreatitis, small bowel obstruction, acute coronary syndrome, pericarditis, ischemic bowel, irritable bowel disease, irritable bowel syndrome, appendicitis, diverticulitis, malignancy, hernia, urinary tract infection, torsion, perforation, trauma, infectious. Patient is a 81-year-old male that presents the ER severe right-sided abdominal pain which feels that his previous visit. Upon review he was here previously for ischemic colitis. This was treated medically. CBC was fairly unremarkable. BMP shows a potassium of 5.5 and a creatinine of 8.4. Patient has not received dialysis since Wednesday. LFTs along with bilirubin and lipase was unremarkable. Lactic gas was normal. UA was negative. CTA of the abdomen shows no signs of ischemia. I did discuss case with general surgery as a patient was significant tender. He recommended IV antibiotics, fluids and admission to internal medicine with a consult as this still could be early onset ischemic colitis. Recent C. difficile was negative. Medication Reconcilliation Current Medication List: was personally reviewed by me Blood Pressure Screening Patient's blood pressure: Elevated blood pressure Blood pressure disposition: Elevated BP felt to be situational Consults Time Called: 1322 Consulting Physician: Dr. Ambrose Returned Call: [address] Ambrose of general surgery regarding the patient's treatment plan. He recommends that the patient remain in the hospital for observation. Additional Consults: Time Called: 1355 Consulted Physician: Dr. Brown Returned Call: 1351 Additional Comments: I reviewed the patient's case with Dr. Brown. [facility] will evaluate the patient for further management. Impression Primary Impression: Right sided abdominal pain Scribe Attestation The scribe's documentation has been prepared under my direction and personally reviewed by me in its entirety. I confirm that the note above accurately reflects all work, treatment, procedures, and medical decision making performed by me. Departure Information Dispostion Being Evaluated By Hospitalist Referrals Reji Cameron M.D. (PCP) Patient Instructions [facility]
[2017-03-18] MEDS ORDERED: SODIUM BICARBONATE 650 MG TAB PO SCH (17:00)
[2017-03-18 17:11] VITALS: BP 164/72; PULSE 92; TEMP 36.4; O2SAT 97
--- NOTE | 2017-03-18 18:01 | Nephrology Consultation ---
Nephrology Consultation Date & Providers Date of Consultation: Mar 18, 2017. Primary Care Provider: Reji Cameron M.D. Referring Provider: Reason for Consultation Provide inpatient HD and assist with the medical management of this patient w/ ESRD History of Present Illness History of Present Illness Mr. Galeano is a 81 year old white male who is seen at the request of Dr. Mckinnon to provide in patient HD and assist w/ his medical management. 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 His dialysis prescription is 4 hours F-180NR 2K 2Ca EDW 106kg. Patient has a functioning L upper arm AVF. Mr. Galeano as last dialyzed on Wednesday without complication. Later that evening he developed RLQ abdominal pain. This was associated with diarrhea and nausea. He was not able to attend dialysis Wednesday or today due to persistent diarrhea. He presented to the ED this morning for evaluation. Abdominal CT revealed diffuse atherosclerotic vascular disease. There was no evidence of acute colitis. Mr. Galeano has been admitted for pain management, surgical evaluation and inpatient HD Past Medical/Surgical History Medical: # ESRD due to diabetic nephropathy - on HD since 12/08 # AODM # HTN # PVD - diffuse atherosclerosis of the abdominal aorta Surgical: # L upper arm AVF Allergies Coded Allergies: No Known Allergies (Unverified , 03/18/17) Inpatient Medications Current Inpatient Medications Medications (Trade) Dose Ordered Sig/Brennan Route Start Time Stop Time Status Last Admin Dose Admin Ioversol (Optiray 320) 125 ml UD PRN IV 03/18/17 10:30 03/22/17 10:29 Ondansetron HCl (Zofran Inj) 4 mg Q6H PRN IV 03/18/17 15:45 04/17/17 15:44 Amlodipine Besylate (Norvasc Tab) 5 mg QAM PO 03/19/17 09:00 04/18/17 08:59 Aspirin (Ecotrin Tab) 81 mg QAM PO 03/19/17 09:00 04/18/17 08:59 Atorvastatin Calcium (Lipitor Tab) 20 mg HS PO 03/18/17 21:00 04/17/17 20:59 Insulin Aspart (novoLOG ASPART) 18 units QAM SC 03/19/17 09:00 04/18/17 08:59 UNV Insulin Aspart (novoLOG ASPART) 19 units UD SQ 03/18/17 15:45 04/17/17 15:44 UNV Insulin Aspart (novoLOG ASPART) 22 units QPM SQ 03/18/17 21:00 04/17/17 20:59 UNV Insulin Glargine (Lantus Solostar Pen) 35 units HS SQ 03/18/17 21:00 04/17/17 20:59 UNV Lidocaine/ Prilocaine (Emla 2.5% Crm) 1 ea UD EXT 03/18/17 15:45 04/17/17 15:44 UNV Metoprolol Succinate (Toprol Xl Tab) 50 mg QPM PO 03/18/17 21:00 04/17/17 20:59 Multivitamins/ Minerals (Multivitamin W/ Minerals Tab) 1 tab DAILY PO 03/19/17 09:00 04/18/17 08:59 Ranitidine HCl (zANTac TAB) 150 mg HS PO 03/18/17 21:00 04/17/17 20:59 Sodium Bicarbonate (Sodium Bicarbonate Tab) 650 mg BIDM PO 03/18/17 17:00 04/17/17 17:59 Vitamin B Complex/ Vit C/Folic Acid (Nephrocaps) 1 cap DAILY PO 03/19/17 09:00 04/18/17 08:59 Diclofenac Sodium (Voltaren 1% Top Gel) 1 appln QID EXT 03/18/17 17:00 04/17/17 16:59 Temazepam (Restoril Cap) 7.5 mg HS PRN PO 03/18/17 15:45 04/17/17 15:44 UNV Insulin Aspart (novoLOG ASPART) SLIDING SCALE G... ACHS SC 03/18/17 16:00 04/17/17 15:59 UNV Ciprofloxacin/ Dextrose 400 mg/ Prmx 200 ml @ 100 mls/hr Q12 IV 03/18/17 21:00 03/28/17 20:59 UNV Metronidazole 500 mg/Prmx 100 ml @ 100 mls/hr Q8H IV 03/18/17 16:00 03/28/17 15:59 UNV Family History No pertinent family history Negative for CKD / ESRD Social History Smoking Status: Current Every Day Smoker Drug Use: none Marital Status: Housing Status: lives with family Occupation: retired . has Alzheimers and requires home health nursing. Patient is retired. Current smoker Review of Systems Constitutional: No fever Respiratory: No cough Cardiovascular: No chest pain Abdomen: + pain, + nausea, + diarrhea A complete review of systems was performed. Pertinent positives are noted above. All other systems are negative. Physical Exam Date Time Temp Pulse Resp B/P (MAP) Pulse Ox O2 Delivery O2 Flow Rate FiO2 03/18/17 17:11 36.4 92 18 164/72 (102) 97 Room Air 03/18/17 16:36 36.5 87 16 173/88 99 03/18/17 16:31 87 16 173/88 03/18/17 15:31 157/93 03/18/17 15:30 88 15 03/18/17 15:00 86 16 162/88 99 03/18/17 14:52 88 18 166/80 98 Room Air 03/18/17 13:56 94 Room Air 03/18/17 13:52 90 16 175/102 94 Room Air 03/18/17 13:01 91 18 165/83 100 Room Air 03/18/17 11:20 87 18 159/85 100 Room Air 03/18/17 10:12 99 Room Air 03/18/17 10:04 94 03/18/17 09:50 36.5 106 18 174/75 98 Room Air General Appearance: no apparent distress Head: normocephalic, atraumatic Eyes: PERRL, EOMI Neck: no adenopathy Respiratory/Chest: lungs clear, no respiratory distress Cardiovascular: regular rate, rhythm, no murmur Abdomen/GI: soft (hypoactive bowel sounds), + tenderness (in bilateral lower quadrants. No guarding) Extremities/Musculoskelatal: no pedal edema, + pertinent finding (L arm AVF + bruit) Neurologic/Psych: alert, oriented x 3 Laboratory Results Last 24 Hours Test 03/18/17 10:42 03/18/17 10:47 03/18/17 11:10 03/18/17 12:00 White Blood Count 9.17 K/uL Red Blood Count 3.79 M/uL Hemoglobin 11.7 g/dL Hematocrit 35.7 % Mean Corpuscular Volume 94.2 fL Mean Corpuscular Hemoglobin 30.9 pg Mean Corpuscular Hemoglobin Concent 32.8 g/dl Platelet Count 244 K/uL Mean Platelet Volume 11.6 fL Neutrophils (%) (Auto) 71.1 % Lymphocytes (%) (Auto) 15.4 % Monocytes (%) (Auto) 10.5 % Eosinophils (%) (Auto) 1.7 % Basophils (%) (Auto) 1.0 % Neutrophils # (Auto) 6.52 K/uL Lymphocytes # (Auto) 1.41 K/uL Monocytes # (Auto) 0.96 K/uL Eosinophils # (Auto) 0.16 K/uL Basophils # (Auto) 0.09 K/uL RDW Standard Deviation 55.2 fL RDW Coefficient of Variation 16.0 % Immature Granulocyte % (Auto) 0.3 % Immature Granulocyte # (Auto) 0.03 K/uL Sodium Level 137 mmol/L Potassium Level 5.5 mmol/L Chloride Level 108 mmol/L Carbon Dioxide Level 21 mmol/L Anion Gap 8.0 mmol/L 16.0 mmol/L Blood Urea Nitrogen 64 mg/dl Creatinine 8.40 mg/dl Est Creatinine Clear Calc Drug Dose 8.3 ml/min Estimated GFR () 6.3 Estimated GFR (Non- 5.4 BUN/Creatinine Ratio 7.6 Random Glucose 203 mg/dl Calcium Level 9.6 mg/dl Total Bilirubin 0.4 mg/dl Direct Bilirubin 0.1 mg/dl Aspartate Amino Transf (AST/SGOT) 11 U/L Alanine Aminotransferase (ALT/SGPT) 17 U/L Alkaline Phosphatase 95 U/L Total Protein 7.3 gm/dl Albumin 3.6 gm/dl Lipase 135 U/L Bedside Hemoglobin 12.6 g/dl Bedside Hematocrit 37 % Bedside Sodium 138 mEq/L Bedside Potassium 5.5 mEq/L Bedside Chloride 108 mEq/L Bedside Total CO2 20 mEq/l Bedside Blood Urea Nitrogen 62 mg/dl Bedside Creatinine 8.6 mg/dl Bedside Glucose (other) 205 mg/dl Bedside Ionized Calcium (Cathy) 1.10 mmol/l Lactic Acid Level 1.2 mmol/L Urine Color YELLOW Urine Appearance CLEAR Urine pH 8.5 Urine Specific [place] 1.017 Urine Protein 2+ Urine Glucose (UA) 2+ Urine Ketones TRACE Urine Occult Blood TRACE Urine Nitrite NEG Urine Bilirubin NEG Urine Urobilinogen NEG Urine Leukocyte Esterase NEG Urine WBC (Auto) 1-5 /hpf Urine RBC (Auto) 0-4 /hpf Urine Hyaline Casts (Auto) 0 /lpf Urine Epithelial Cells (Auto) 0-5 /lpf Urine Bacteria (Auto) NEG Test 03/18/17 17:05 Bedside Glucose 86 mg/dl Impression (1) ESRD on hemodialysis (2) Right sided abdominal pain (3) Diarrhea (4) Ischemic colitis (5) Hypertension (6) Diabetes mellitus Mr. Galeano was admitted to the hospital for evaluation of recurrent lower abdominal pain and diarrhea. Abdominal CT shows extensive atherosclerosis but no acute colitis. Surgical consultation has been requested. Stool cultures have been ordered. Patient is afebrile w/ normal WBC #. He does not have clinical signs of acute infection or sepsis at this time. He requires HD this evening due to hyperkalemia and metabolic acidosis Recommendations END STAGE RENAL DISEASE: -- Patient has missed his last two outpatient HD treatments due to abdominal pain and diarrhea -- Will provide 3 hours heparin free HD tonight to correct hyperkalemia and acidemia. No UF. Patient is currently below his dry weight of 103 kg. Orders entered into EMR and HD RN manager long term care notified. -- Will reassess need for HD again in am HYPERTENSION: -- Blood pressure remains acceptable. Continue current medical regimen ANEMIA: -- Hgb currently above target range of 10 - 11. Hold EDUARDO and monitor H&H GI: -- Possible ischemic colitis. Await surgical evaluation and recommendations ID: -- Await stool culture results -- IV Cipro & Flagyl as per primary service and golf tournament consultant
[2017-03-18] MEDS ORDERED: GLUCOSE 40% GEL 15 GM TUBE PO PRN (18:15)
[2017-03-18] MEDS ORDERED: GLUCOSE 10 TABS/TUBE PO PRN (18:15)
[2017-03-18] MEDS ORDERED: DEXTROSE 50% 50 ML SYR IV PRN (18:15)
[2017-03-18] MEDS ORDERED: GLUCAGON FOR INJ 1 MG VIAL SQ PRN (18:15)
[2017-03-18] MEDS ORDERED: INSULIN ASPART 100 UNITS/ML 3 ML PEN SQ SCH (18:45)
[2017-03-18] MEDS: DICLOFENAC SOD 1% GEL 100 GM TUBE EXT SCH ×2 (19:18→21:00)
[2017-03-18] MEDS ORDERED: INSULIN GLARGINE SOLOSTAR 100 UNITS/ML 3 ML PEN SQ SCH (21:00)
[2017-03-18] MEDS ORDERED: ATORVASTATIN 20 MG TAB PO SCH (21:00)
[2017-03-18] MEDS: INSULIN ASPART 100 UNITS/ML 3 ML PEN SC SCH (21:00)
--- NOTE | 2017-03-18 21:18 | History and Physical ---
History & Physical Date of Service Mar 18, 2017. History & Physical admit #[id number]
[2017-03-18] MEDS: RANITIDINE HCL 150 MG TAB PO SCH (21:24)
[2017-03-18] MEDS: METOPROLOL SUCC 50MG EXT REL TAB PO SCH (21:25)
[2017-03-18 21:30] VITALS: BP 165/69; PULSE 116
[2017-03-18] MEDS ORDERED: METRONIDAZOLE / NSS 500 MG in PREMIXED NSS 100 ML IV SCH (22:00)
--- NOTE | 2017-03-18 22:59 | HISTORY & PHYSICAL EXAMINATION ---
DATE OF ADMISSION: 03/18/2017 CHIEF COMPLAINT: Abdominal pain and diarrhea as well as back pain. HISTORY OF PRESENT ILLNESS: The patient is a pleasant 81-year-old male, accompanied by his family who notes that he has had about a week of predominantly right-sided abdominal pain and diarrhea. He notes that basically it all started after eating a burger and fries; then maybe half an hour later he had pretty profuse diarrhea and now any time he eats or drinks, he has almost immediate diarrhea that has been clear, watery and frequent. He does not seem to have any fevers, chills or sweats. He has no nausea or vomiting. He has no urinary symptoms. He does have abdominal pain predominantly on the right side. REVIEW OF SYSTEMS: Otherwise negative, except for as above. 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 MEDICATIONS: Amlodipine 5 mg daily, aspirin 81 mg daily, Lipitor 20 mg daily, Lantus 30-35 units at bedtime, metoprolol succinate 50 mg daily, Nephrocaps daily, NovoLog 18 at breakfast, 19 at lunch and 22 at dinner, Percocet 5/325 1-2 at bedtime p.r.n. back pain, PreserVision daily, Zantac 150 mg at bedtime and sodium bicarbonate 650 b.i.d. PAST SURGICAL HISTORY: Includes dialysis access, neuroplasty, decompression of the carpal tunnel, knee surgery and olecranon bursa excision. FAMILY HISTORY: COPD. SOCIAL HISTORY: He is a smoker. Social drinker. He has a supportive family. He lives at home. ALLERGIES: No known drug allergies. PHYSICAL EXAMINATION: VITAL SIGNS: Temp 36.5, pulse 106, respiratory rate 18, blood pressure 174/75, 98% on room air. GENERAL: He is awake, alert, oriented x3, pleasant, in no acute distress. HEENT: Normocephalic and atraumatic. Mucous membranes may be slightly dry. CARDIOVASCULAR: Distant. No rubs or gallops. No murmurs. ABDOMEN: Soft, moderately distended, mild tenderness. No guarding, rebound, rigidity. No masses or organomegaly. EXTREMITIES: Without cyanosis, clubbing or edema. No calf tenderness. SKIN: Shows no rashes, no pallor or icterus. NEUROLOGIC: Shows cranial nerves II-XII to be grossly intact. Gross motor and sensory are intact. MUSCULOSKELETAL/OSTEOPATHIC STRUCTURAL EXAMINATION: Shows right lower back lumbar spine paraspinal hypertonicity as well as tenderness in the right piriformis region and a bit of decreased range of motion at his right hip and hemipelvis mechanism. Muscle energy technique was done, both to correct pelvic torsion and the tight piriformis; patient tolerated it well. MENTAL STATUS: Shows good recent and remote recall. Normal mood and affect. Good judgment and insight. LABORATORIES AND DIAGNOSTICS: CBC shows a white count of 9.17, hemoglobin 11.7 and platelets 244. Complete metabolic panel with sodium 137, potassium 5.5, chloride 108, CO2 21, BUN 64, creatinine 8.4, calcium 9.1, glucose 203, total bili 0.4 with a direct of 0.1, AST 11, ALT 17, alkaline phosphatase 95, total protein 7.3, albumin 3.6 and lipase of 135. Urinalysis; yellow, clear, specific gravity 1.017, pH of 8.5, trace ketones and trace blood. CT angiography of the abdomen shows mild multi-chamber cardiac enlargement, moderate to extensive mixed plaque of the abdominal aorta vascularity, mild fusiform aneurysmal dilation of the infrarenal abdominal aorta 3.1 x 2.8 cm AP and transverse dimension, atherosclerotic plaquing at the origins of the celiac trunk, superior and inferior mesenteric arteries without high-grade stenosis or occlusion, additional plaquing seen at the origin of the renal arteries bilaterally left greater than right with approximately 50% stenosis on the left. Note is made of dual arteries applied to the bilateral kidneys, additional plaque involving bilateral external and common femoral arteries without high-grade stenosis, mild dependent bibasilar atelectasis. No pneumoperitoneum. Hyperattenuating 2.7 x 1.9 cm similar lesion of the hepatic dome, not definitively seen on the comparison noncontrast study, but is nonspecific. Spleen is diminutive in size. Gallbladder and right adrenal gland are unremarkable. Moderate pancreatic atrophy, nonspecific soft tissue attenuating 1.7 x 1.5 left adrenal gland appearing unchanged statistically benign. Kidney appearing mildly atrophic, probable cyst of the superior pole of the right kidney 2.9 x 2.3 cm; probable additional cysts present bilaterally. Urinary bladder; unremarkable. Prostate enlarged, no bulky retroperitoneal adenopathy identified. No bowel obstruction. No focal wall thickening. Resolution of previously noted pneumatosis of the ascending colon as well as mesenteric and portal venous gas. No evidence for focal colitis or ischemic bowel disease. The appendix appears normal. Fluid filled nondilated small bowel loops in the lower pelvis, deemed to be likely physiologic. Mild skin thickening, subcutaneous stranding of the lower anterior abdominal wall, multifocal degenerative changes are seen. No acute bony abnormality identified. ASSESSMENT AND PLAN: 1. Abdominal pain and diarrhea. Clinically, the etiology is a little bit up in the air. Given his severity of his abdominal vascular disease and his recent episode of ischemic colitis, the working diagnosis will start with the idea that this may be a mild version of his prior ischemic colitis recurring. Clostridium difficile has been checked and is negative. He does not appear septic. We will cover him empirically with Cipro and Flagyl, follow serial exams, have a surgical evaluation, vascular surgery evaluation and continue to treat for the most likely being a mild ischemic colitis until or unless a different etiology becomes more prevalent. I have discussed this with the patient and family including the fact that his working diagnosis may change after further evaluation and they expressed good understanding. 2. Mesenteric ischemia, continue medication management for his risk factors. Vascular surgery evaluation in regards to if any interventions would be warranted or even possible. 3. End-stage renal disease, on dialysis. He has missed his last 2 dialysis treatments. We will consult nephrology. 4. Back pain, this appears to be a lumbosacral strain/musculoskeletal mechanism of his back pain the way I examine and where his pain is; it is too low to be referred from his abdominal pain given that it is really more in his low lumbar and sacroiliac region. Osteopathic manipulative therapy was done with some improvement in range of motion and we will continue treatment with physical therapy, occupational therapy and Voltaren gel to his piriformis and sacroiliac joint regions. 5. Type 2 diabetes on insulin; his last A1c just a little over a month ago was 7.4. Continue his supplemental insulin as needed; fingersticks and sliding scale. 6. Deep venous thrombosis prophylaxis, heparin subQ. 7. Hyperlipidemia, continue his Lipitor. 8. Hypertension, continue his home medications and follow. [facility]
[2017-03-18 23:06] VITALS: BP 165/69; PULSE 116; TEMP 36.8
[2017-03-18 23:24] VITALS: BP 139/67; PULSE 98; TEMP 36.9
[2017-03-19] VITALS (22 sets, daily range): BP systolic 97–158; BP diastolic 45–77; PULSE 18–88; TEMP 36.4–36.9; O2SAT 95–99
[2017-03-19 08:11] LABS: BASO % 0.6 %; BASO ABS # 0.07 K/uL (0-0.2); COMPLETE YES; EOS % 0.7 %; HEMATOCRIT 36.4 % (42-52); IG% 0.3 %; LYMPH % 11.9 %; LYMPH ABS # 1.47 K/uL (1.2-3.4); MEAN CELL VOLUME 95.3 fL (80-100); MEAN CORPUSCULAR HEMOGLOBIN 30.9 pg (25-34); MEAN CORPUSCULAR HGB CONC 32.4 g/dl (32-36); MEAN PLATELET VOLUME 11.1 fL (7.4-10.4); MONO % 8.6 %; NEUT % 77.9 %; PLATELET COUNT 247 K/uL (130-400); RED BLOOD COUNT 3.82 M/uL (4.7-6.1); WHITE BLOOD COUNT 12.38 K/uL (4.8-10.8)
[2017-03-19] MEDS: INSULIN ASPART 100 UNITS/ML 3 ML PEN SC SCH ×4 (08:15→21:00)
[2017-03-19] MEDS: METRONIDAZOLE / NSS 500 MG in PREMIXED NSS 100 ML IV SCH ×3 (08:16→16:29)
[2017-03-19] MEDS: DICLOFENAC SOD 1% GEL 100 GM TUBE EXT SCH ×4 (08:16→21:00)
[2017-03-19 08:17] LABS: PROTHROMBIN TIME (PATIENT) 10.5 SECONDS (9.0-12.0)
[2017-03-19] MEDS: ASPIRIN 81 MG ECTAB PO SCH (08:17)
[2017-03-19] MEDS: AMLODIPINE BESYLATE 5 MG TAB PO SCH (08:17)
[2017-03-19] MEDS: CEROVITE ADV FORMULA TAB PO SCH (08:18)
[2017-03-19] MEDS: NEPHROCAPS PO SCH (08:18)
--- NOTE | 2017-03-19 08:57 | Surgery Consultation ---
Consultation Date of Service Mar 19, 2017. Chief Complaint possible mesenteric ischemia History of Present Illness The patient is a 81 year old male with hx of ESRD on HD, HTN, atherosclerotic disease, DMII, known to Dr Castro for HD access, admitted with R sided abd pain , diarrhea for 1 week, seen in consultation today for possible mesenteric ischemia. Pt previously admitted in 01/2017 for abd pain, N/V, and diarrhea, which resolved over 7-8 days. Imaging at that time indicated colitis, possibly ischemic. Pt presented to [facility] now for similar problem, but not as severe. No N/V per pt and he states minimal R sided pain. More concerned about the diarrhea. Denies any sx presently. Denies post prandial pain or insidious changes in eating habits. Denies ROCHA, fever, chills, chest pain, SOB, abd pain, N/V, rest pain, claudication, other complaints. States his L forearm AVF has been working well at outpt HD. Vitals Vital Signs Past 12 Hours Date Time Temp Pulse Resp B/P (MAP) Pulse Ox O2 Delivery O2 Flow Rate FiO2 03/19/17 07:16 36.7 83 18 158/65 (96) 99 Room Air 03/19/17 00:38 36.6 88 16 152/68 (96) 95 03/19/17 00:00 Room Air 03/18/17 23:24 36.9 98 139/67 (91) 03/18/17 23:06 36.8 116 165/69 (101) 03/18/17 21:30 116 165/69 Allergies Coded Allergies: No Known Allergies (Unverified , 03/18/17) Home Medications Scheduled Amlodipine Besylate (Norvasc), 5 MG PO QAM Aspirin (Aspir-81), 81 MG PO QAM Atorvastatin (Atorvastatin Calcium), 20 MG PO HS Insulin Aspart (Novolog Flexpen), 18 UNITS SC QAM Insulin Aspart (Novolog Flexpen), 19 UNITS SQ LUNCH Insulin Aspart (Novolog Flexpen), 22 UNITS SQ QPM Insulin Glargine (Lantus Solostar), 30-35 UNITS SQ HS Lidocaine-Prilocaine (Pkhcrybbg-Dupnfjayig-Qswc 2.5-2.5 %), 1 APPLN TOP UD Metoprolol Succinate (Toprol Xl), 50 MG PO QPM Ocuvite Preservision (Ocuvite Preservision), 2 TAB PO DAILY Ranitidine (Zantac), 150 MG PO HS Sodium Bicarbonate (Antacid) (Sodium Bicarbonate), 1 TAB PO BIDM Vitamin B Cmplx/Vitc/Folic Ac (Nephrocaps), 1 CAP PO DAILY Problem List Medical Problems: (1) Diabetes mellitus (2) Diarrhea (3) ESRD on hemodialysis (4) Hypertension (5) Ischemic colitis Surgical / Medical History Hx Cardiac Surgery: Yes Hx Abdominal Surgery: No Hx Cancer Surgery: No Hx Thoracic Surgery: No Hx Orthopedic: Yes (KNEE) Hx Urinary Tract Surgery: No HX Other Surgery: No Past Medical/Surgical History: Diabetes, High Cholesterol, Hypertension, Kidney Disease Family History No pertinent family history + HTN, DMII Social History Smoking Status: Current Every Day Smoker Hx Tobacco Use In Past Year?: Yes (SMOKES PIPE ) Hx Alcohol Use - Type & Amnt: No Hx Substance Use -Type & Amnt: No Review of Systems Constitutional: No chills, No fever, No malaise Skin: No change in color Eyes: No visual changes ENMT: No sore throat Respiratory: No cough, No hemoptysis, No short of breath Cardiovascular: No chest pain, No palpitations, No syncope Gastrointestinal: + abdominal pain, + diarrhea, No constipation, No nausea, No vomiting Neurologic: No dizziness, No headache, No lethargy, No numbness, No tingling Physical Exam Constitutional: General Apperance: well-nourished, well-developed Level of Distress: NAD, chronically ill Psychiatric: Mental Status: active & alert, normal mood, normal affect Orientation: oriented except where noted, to time, to place, to person Memory: recent memory normal, remote memory normal Head: normocephalic, atraumatic Eyes: EOM: EOMI ENMT: normal ENT inspection, hearing grossly normal Neck: supple, trachea midline Lungs: Respiratory effort: no dyspnea Auscultation: no rales/crackles, no rhonchi, decreased breath sounds Cardiovascular: Apical Impulse: not displaced Heart Auscultation: RRR, no murmurs, no rubs Peripheral Pulses: Pulses: full and equal, in all extremities except if noted Bruits: none appreciated Carotid Pulse: normal on the left, normal on the right Brachial Pulses: normal on the left, normal on the right Radial Pulse: normal on the right, pertinent finding (L wrist radial absent d/t ligation. + thrilll/bruit over AVF) Femoral Pulse: normal on the left, normal on the right Posterior Tibialis Pulse: decreased on the left, decreased on the right Dorsalis Pedis Pulse: decreased on the left, decreased on the right Abdomen: Bowel Sounds: normal Inspection & Palpation: soft, non-distended, no tenderness, guarding & rebound Musculoskeletal: normal strength (5/5 throughout), normal tone Extremities: Upper Right: no cyanosis, no edema, no varicosities Upper Left: no cyanosis, no edema, no varicosities Lower Right: no cyanosis, no edema, no varicosities Lower Left: no cyanosis, no edema, no varicosities Neurologic: Cranial Nerves: grossly intact Sensation: grossly intact Assessment and Plan ASSESSMENT and PLAN: Abd pain Mesenteric atherosclerosis without stenosis L renal art stenosis AAA 3.1cm Pt's CTA reviewed by Dr Castro, does not demonstrate any significant narrowing of mesenteric vessels, although there is diffuse atherosclerotic disease noted throughout his abd vessels. Mild stenosis of L renal art noted, less than 50%. Pt sx inconsistent with chronic mesenteric ischemia. No indications for vascular surgical intervention at this time. Recommend aortoiliac US in 1 yr to eval growth of AAA. Please call if needed.
[2017-03-19] MEDS ORDERED: INSULIN ASPART 100 UNITS/ML 3 ML PEN SC SCH (09:00)
[2017-03-19] MEDS: HEPARIN SOD 5000 UNIT/0.5 ML CARP SQ SCH ×2 (09:00→21:19)
[2017-03-19 09:08] LABS: BUN/CREATININE RATIO 7.9 (10-20); CALCIUM 9.6 mg/dl (8.5-10.1); CREATININE 8.5 mg/dl (0.60-1.40); POTASSIUM 5.7 mmol/L (3.5-5.1)
--- NOTE | 2017-03-19 09:40 | Nephrology Progress Note ---
Nephrology Progress Note Date of Service Mar 19, 2017. Chief Complaint Provide inpatient HD and assist with the medical management of this patient w/ ESRD Subjective Mr. Galeano was seen & examined in preparation for HD this morning. Patient was ordered to receive HD yesterday evening. He was a late start. Unfortunately HD technical staff assistant was unable to cannulate AVF for venous return. Patient was rescheduled for dialysis this morning. Mr. Galeano reports that he has persistent abdominal pain. He has required IV Dilaudid therapy. He continues to have watery diarrhea. Review of Systems Constitutional: No fever Cardiovascular: No chest pain Respiratory: No dyspnea at rest Abdomen: + pain, No nausea, No vomiting Extremities: No leg edema A complete review of systems was performed. Pertinent positives are noted above. All other systems are negative. Vital Signs Last 8 Hrs Date Time Temp Pulse Resp B/P (MAP) Pulse Ox O2 Delivery O2 Flow Rate FiO2 03/19/17 07:16 36.7 83 18 158/65 (96) 99 Room Air Last Recorded Weight Weight (Kilograms): 99.000 Physical Exam General Appearance: no apparent distress Head: normocephalic, atraumatic Eyes: PERRL, EOMI Neck: no adenopathy Respiratory/Chest: lungs clear, no respiratory distress Cardiovascular: regular rate, rhythm Abdomen/GI: + pertinent finding (mildly tender to palpation in bilateral lower quadrants. No guarding) Extremities/Musculoskelatal: + pertinent finding (AVF + bruit. Poor skin turgor involving the arms and legs) Neurologic/Psych: alert, oriented x 3 Family History No pertinent family history Negative for CKD / ESRD Social History Drug Use: none Marital Status: Housing Status: lives with family Occupation: retired . has Alzheimers and requires home health nursing. Patient is retired. Current smoker Laboratory Results Past 24 Hours 03/18/17 10:42 Red Blood Count 3.79, Mean Corpuscular Volume 94.2, Mean Corpuscular Hemoglobin 30.9, Mean Corpuscular Hemoglobin Concent 32.8, Mean Platelet Volume 11.6, Neutrophils (%) (Auto) 71.1, Lymphocytes (%) (Auto) 15.4, Monocytes (%) (Auto) 10.5, Eosinophils (%) (Auto) 1.7, Basophils (%) (Auto) 1.0, Neutrophils # (Auto ) 6.52, Lymphocytes # (Auto) 1.41, Monocytes # (Auto) 0.96, Eosinophils # (Auto ) 0.16, Basophils # (Auto) 0.09 03/19/17 07:53 Red Blood Count 3.82, Mean Corpuscular Volume 95.3, Mean Corpuscular Hemoglobin 30.9, Mean Corpuscular Hemoglobin Concent 32.4, Mean Platelet Volume 11.1, Neutrophils (%) (Auto) 77.9, Lymphocytes (%) (Auto) 11.9, Monocytes (%) (Auto) 8.6, Eosinophils (%) (Auto) 0.7, Basophils (%) (Auto) 0.6, Neutrophils # (Auto) 9.65, Lymphocytes # (Auto) 1.47, Monocytes # (Auto) 1.06, Eosinophils # (Auto) 0.09, Basophils # (Auto) 0.07 03/18/17 10:42 03/19/17 07:53 Test 03/18/17 10:42 03/18/17 10:47 03/18/17 11:10 03/18/17 12:00 White Blood Count 9.17 K/uL (4.8-10.8) Red Blood Count 3.79 M/uL (4.7-6.1) Hemoglobin 11.7 g/dL (14.0-18.0) Hematocrit 35.7 % (42-52) Mean Corpuscular Volume 94.2 fL (80-100) Mean Corpuscular Hemoglobin 30.9 pg (25-34) Mean Corpuscular Hemoglobin Concent 32.8 g/dl (32-36) Platelet Count 244 K/uL (130-400) Mean Platelet Volume 11.6 fL (7.4-10.4) Neutrophils (%) (Auto) 71.1 % Lymphocytes (%) (Auto) 15.4 % Monocytes (%) (Auto) 10.5 % Eosinophils (%) (Auto) 1.7 % Basophils (%) (Auto) 1.0 % Neutrophils # (Auto) 6.52 K/uL (1.4-6.5) Lymphocytes # (Auto) 1.41 K/uL (1.2-3.4) Monocytes # (Auto) 0.96 K/uL (0.11-0.59) Eosinophils # (Auto) 0.16 K/uL (0-0.5) Basophils # (Auto) 0.09 K/uL (0-0.2) RDW Standard Deviation 55.2 fL (36.4-46.3) RDW Coefficient of Variation 16.0 % (11.5-14.5) Immature Granulocyte % (Auto) 0.3 % Immature Granulocyte # (Auto) 0.03 K/uL (0.00-0.02) Anion Gap 8.0 mmol/L (3-11) 16.0 mmol/L (16-25) Est Creatinine Clear Calc Drug Dose 8.3 ml/min Estimated GFR () 6.3 Estimated GFR (Non- 5.4 BUN/Creatinine Ratio 7.6 (10-20) Calcium Level 9.6 mg/dl (8.5-10.1) Total Bilirubin 0.4 mg/dl (0.2-1) Direct Bilirubin 0.1 mg/dl (0-0.2) Aspartate Amino Transf (AST/SGOT) 11 U/L (15-37) Alanine Aminotransferase (ALT/SGPT) 17 U/L (12-78) Alkaline Phosphatase 95 U/L (45-117) Total Protein 7.3 gm/dl (6.4-8.2) Albumin 3.6 gm/dl (3.4-5.0) Lipase 135 U/L (73-393) Bedside Hemoglobin 12.6 g/dl (14.0-18.0) Bedside Hematocrit 37 % (42-52) Bedside Sodium 138 mEq/L (135-144) Bedside Potassium 5.5 mEq/L (3.3-5.0) Bedside Chloride 108 mEq/L (101-112) Bedside Total CO2 20 mEq/l (24-31) Bedside Blood Urea Nitrogen 62 mg/dl (7-18) Bedside Creatinine 8.6 mg/dl (0.6-1.3) Bedside Glucose (other) 205 mg/dl (70-99) Bedside Ionized Calcium (Cathy) 1.10 mmol/l (1.12-1.32) Lactic Acid Level 1.2 mmol/L (0.4-2.0) Urine Color YELLOW Urine Appearance CLEAR (CLEAR) Urine pH 8.5 (4.5-7.5) Urine Specific [place] 1.017 (1.000-1.030) Urine Protein 2+ (NEG) Urine Glucose (UA) 2+ (NEG) Urine Ketones TRACE (NEG) Urine Occult Blood TRACE (NEG) Urine Nitrite NEG (NEG) Urine Bilirubin NEG (NEG) Urine Urobilinogen NEG (NEG) Urine Leukocyte Esterase NEG (NEG) Urine WBC (Auto) 1-5 /hpf (0-5) Urine RBC (Auto) 0-4 /hpf (0-4) Urine Hyaline Casts (Auto) 0 /lpf (0-5) Urine Epithelial Cells (Auto) 0-5 /lpf (0-5) Urine Bacteria (Auto) NEG (NEG) Test 03/18/17 17:05 03/18/17 19:47 03/19/17 07:53 Bedside Glucose 86 mg/dl (70-99) 83 mg/dl (70-99) White Blood Count 12.38 K/uL (4.8-10.8) Red Blood Count 3.82 M/uL (4.7-6.1) Hemoglobin 11.8 g/dL (14.0-18.0) Hematocrit 36.4 % (42-52) Mean Corpuscular Volume 95.3 fL (80-100) Mean Corpuscular Hemoglobin 30.9 pg (25-34) Mean Corpuscular Hemoglobin Concent 32.4 g/dl (32-36) Platelet Count 247 K/uL (130-400) Mean Platelet Volume 11.1 fL (7.4-10.4) Neutrophils (%) (Auto) 77.9 % Lymphocytes (%) (Auto) 11.9 % Monocytes (%) (Auto) 8.6 % Eosinophils (%) (Auto) 0.7 % Basophils (%) (Auto) 0.6 % Neutrophils # (Auto) 9.65 K/uL (1.4-6.5) Lymphocytes # (Auto) 1.47 K/uL (1.2-3.4) Monocytes # (Auto) 1.06 K/uL (0.11-0.59) Eosinophils # (Auto) 0.09 K/uL (0-0.5) Basophils # (Auto) 0.07 K/uL (0-0.2) RDW Standard Deviation 55.8 fL (36.4-46.3) RDW Coefficient of Variation 16.0 % (11.5-14.5) Immature Granulocyte % (Auto) 0.3 % Immature Granulocyte # (Auto) 0.04 K/uL (0.00-0.02) Prothrombin Time 10.5 SECONDS (9.0-12.0) Prothromb Time International Ratio 1.0 (0.9-1.1) Anion Gap 9.0 mmol/L (3-11) Est Creatinine Clear Calc Drug Dose 8.2 ml/min Estimated GFR () 6.2 Estimated GFR (Non- 5.4 BUN/Creatinine Ratio 7.9 (10-20) Calcium Level 9.6 mg/dl (8.5-10.1) Allergies Coded Allergies: No Known Allergies (Unverified , 03/18/17) Medications Current Inpatient Medications Medications (Trade) Dose Ordered Sig/Brennan Route Start Time Stop Time Status Last Admin Dose Admin Ioversol (Optiray 320) 125 ml UD PRN IV 03/18/17 10:30 03/22/17 10:29 Ondansetron HCl (Zofran Inj) 4 mg Q6H PRN IV 03/18/17 15:45 04/17/17 15:44 Amlodipine Besylate (Norvasc Tab) 5 mg QAM PO 03/19/17 09:00 04/18/17 08:59 03/19/17 08:17 5 MG Aspirin (Ecotrin Tab) 81 mg QAM PO 03/19/17 09:00 04/18/17 08:59 03/19/17 08:17 81 MG Insulin Aspart (novoLOG ASPART) 18 units QAM SC 03/19/17 09:00 04/18/17 08:59 Insulin Aspart (novoLOG ASPART) 19 units DAILY@1200 SQ 03/19/17 12:00 04/18/17 11:59 Insulin Aspart (novoLOG ASPART) 22 units DAILY@1700 SQ 03/18/17 18:45 04/17/17 18:44 03/18/17 19:18 22 UNITS Insulin Glargine (Lantus Solostar Pen) 35 units HS SQ 03/18/17 21:00 04/17/17 20:59 03/18/17 21:26 35 UNITS Lidocaine/ Prilocaine (Emla 2.5% Crm) 1 ea UD PRN EXT 03/18/17 15:45 04/17/17 15:44 Metoprolol Succinate (Toprol Xl Tab) 50 mg QPM PO 03/18/17 21:00 04/17/17 20:59 03/18/17 21:25 50 MG Multivitamins/ Minerals (Multivitamin W/ Minerals Tab) 1 tab DAILY PO 03/19/17 09:00 04/18/17 08:59 03/19/17 08:18 1 TAB Ranitidine HCl (zANTac TAB) 150 mg HS PO 03/18/17 21:00 04/17/17 20:59 03/18/17 21:24 150 MG Vitamin B Complex/ Vit C/Folic Acid (Nephrocaps) 1 cap DAILY PO 03/19/17 09:00 04/18/17 08:59 03/19/17 08:18 1 CAP Diclofenac Sodium (Voltaren 1% Top Gel) 1 appln QID EXT 03/18/17 17:00 04/17/17 16:59 03/19/17 08:16 1 APPLN Temazepam (Restoril Cap) 7.5 mg HS PRN PO 03/18/17 15:45 04/17/17 15:44 Insulin Aspart (novoLOG ASPART) SLIDING SCALE G... ACHS SC 03/18/17 21:00 04/17/17 20:59 Ciprofloxacin/ Dextrose 400 mg/ Prmx 200 ml @ 100 mls/hr Q24H IV 03/19/17 16:00 03/29/17 15:59 Glucose (Glucose 40% Gel) 15-30 GRAMS 15 GRAMS... UD PRN PO 03/18/17 18:15 04/17/17 18:14 Glucose (Glucose Chew Tab) 4-8 Tablets 4 Tabl... UD PRN PO 03/18/17 18:15 04/17/17 18:14 Dextrose (Dextrose 50% 50ML Syringe) 25-50ML OF 50% DW IV FOR... UD PRN IV 03/18/17 18:15 04/17/17 18:14 Glucagon (Glucagon Inj) 1 mg UD PRN SQ 03/18/17 18:15 04/17/17 18:14 Heparin Sodium (Porcine) (Heparin Sq 5000 Unit/0.5ml) 5,000 unit Q12 SQ 03/19/17 09:00 04/18/17 08:59 Atorvastatin Calcium (Lipitor Tab) 40 mg HS PO 03/19/17 21:00 04/17/17 20:59 Metronidazole 500 mg/Prmx 100 ml @ 100 mls/hr Q8H IV 03/19/17 00:00 03/29/17 00:00 03/19/17 08:16 100 MLS/HR Impression (1) ESRD on hemodialysis (2) Right sided abdominal pain (3) Diarrhea (4) Ischemic colitis (5) Hypertension (6) Diabetes mellitus Mr. Galeano was admitted to the hospital for evaluation of recurrent lower abdominal pain and diarrhea. Abdominal CT shows extensive atherosclerosis but no acute colitis. Surgical consultation has been requested. Stool cultures have been ordered. Patient is afebrile w/ normal WBC #. He does not have clinical signs of acute infection or sepsis at this time. He requires HD this evening due to hyperkalemia and metabolic acidosis Recommendations END STAGE RENAL DISEASE: -- Patient has missed his last two outpatient HD treatments due to abdominal pain and diarrhea -- Will provide 3.45 hours heparin free HD today to correct hyperkalemia and acidemia. No UF. Patient is currently below his dry weight of 103 kg. Orders entered into EMR and HD RN secured entrance monitor notified. -- Will reassess need for HD again in am HYPERTENSION: -- Blood pressure remains acceptable. Continue current medical regimen ANEMIA: -- Hgb currently above target range of 10 - 11. Hold EDUARDO and monitor H&H GI: -- Abdominal CT report reviewed: Diffuse atherosclerosis of abdominal vasculature. Patient has no evidence of acute ischemic colitis -- Vascular surgery note reviewed. Patient likely has chronic mesenteric ischemia (small vessel) -- consider consultation w/ Gastroenterology. Question whether therapy is available to provide symptomatic relief ID: -- Await stool culture results -- IV Cipro & Flagyl as per primary service and digital media sales consultant
--- NOTE | 2017-03-19 11:49 | Medical Consult ---
Consultation Date of Consultation: Mar 19, 2017. Attending Physician: Alexey Brown D.O. History of Present Illness 81 y/o male diabetic with ESRD admitted for the second time in the past two months for abdominal pain, diarrhea attributed to ischemic colitis. He has had right sided pain for the past week, had 4 or 5 watery BM's yesterday and one this morning. No blood or mucus. He has not had colonoscopy. He has lost 8-10 pounds in the last month. Had diarrhea last week after eating fish, has been eating a lot of bread and peanut butter. Past Medical/Surgical History Medical Problems: (1) Diabetes mellitus (2) Diarrhea (3) ESRD on hemodialysis (4) Hypertension (5) Ischemic colitis Surgical: no previous abdominal surgeries Family History No pertinent family history Social History Smoking Status: Current Every Day Smoker Drug Use: none Marital Status: Occupation Status: retired Allergies Coded Allergies: No Known Allergies (Unverified , 03/18/17) Current Inpatient Medications Current Inpatient Medications Medications (Trade) Dose Ordered Sig/Brennan Route Start Time Stop Time Status Last Admin Dose Admin Ioversol (Optiray 320) 125 ml UD PRN IV 03/18/17 10:30 03/22/17 10:29 Ondansetron HCl (Zofran Inj) 4 mg Q6H PRN IV 03/18/17 15:45 04/17/17 15:44 Amlodipine Besylate (Norvasc Tab) 5 mg QAM PO 03/19/17 09:00 04/18/17 08:59 03/19/17 08:17 5 MG Aspirin (Ecotrin Tab) 81 mg QAM PO 03/19/17 09:00 04/18/17 08:59 03/19/17 08:17 81 MG Insulin Aspart (novoLOG ASPART) 18 units QAM SC 03/19/17 09:00 04/18/17 08:59 Insulin Aspart (novoLOG ASPART) 19 units DAILY@1200 SQ 03/19/17 12:00 04/18/17 11:59 Insulin Aspart (novoLOG ASPART) 22 units DAILY@1700 SQ 03/18/17 18:45 04/17/17 18:44 03/18/17 19:18 22 UNITS Insulin Glargine (Lantus Solostar Pen) 35 units HS SQ 03/18/17 21:00 04/17/17 20:59 03/18/17 21:26 35 UNITS Lidocaine/ Prilocaine (Emla 2.5% Crm) 1 ea UD PRN EXT 03/18/17 15:45 04/17/17 15:44 Metoprolol Succinate (Toprol Xl Tab) 50 mg QPM PO 03/18/17 21:00 04/17/17 20:59 03/18/17 21:25 50 MG Multivitamins/ Minerals (Multivitamin W/ Minerals Tab) 1 tab DAILY PO 03/19/17 09:00 04/18/17 08:59 03/19/17 08:18 1 TAB Ranitidine HCl (zANTac TAB) 150 mg HS PO 03/18/17 21:00 04/17/17 20:59 03/18/17 21:24 150 MG Vitamin B Complex/ Vit C/Folic Acid (Nephrocaps) 1 cap DAILY PO 03/19/17 09:00 04/18/17 08:59 03/19/17 08:18 1 CAP Diclofenac Sodium (Voltaren 1% Top Gel) 1 appln QID EXT 03/18/17 17:00 04/17/17 16:59 03/19/17 08:16 1 APPLN Temazepam (Restoril Cap) 7.5 mg HS PRN PO 03/18/17 15:45 04/17/17 15:44 Insulin Aspart (novoLOG ASPART) SLIDING SCALE G... ACHS SC 03/18/17 21:00 04/17/17 20:59 Ciprofloxacin/ Dextrose 400 mg/ Prmx 200 ml @ 100 mls/hr Q24H IV 03/19/17 16:00 03/29/17 15:59 Glucose (Glucose 40% Gel) 15-30 GRAMS 15 GRAMS... UD PRN PO 03/18/17 18:15 04/17/17 18:14 Glucose (Glucose Chew Tab) 4-8 Tablets 4 Tabl... UD PRN PO 03/18/17 18:15 04/17/17 18:14 Dextrose (Dextrose 50% 50ML Syringe) 25-50ML OF 50% DW IV FOR... UD PRN IV 03/18/17 18:15 04/17/17 18:14 Glucagon (Glucagon Inj) 1 mg UD PRN SQ 03/18/17 18:15 04/17/17 18:14 Heparin Sodium (Porcine) (Heparin Sq 5000 Unit/0.5ml) 5,000 unit Q12 SQ 03/19/17 09:00 04/18/17 08:59 Atorvastatin Calcium (Lipitor Tab) 40 mg HS PO 03/19/17 21:00 04/17/17 20:59 Metronidazole 500 mg/Prmx 100 ml @ 100 mls/hr Q8H IV 03/19/17 00:00 03/29/17 00:00 03/19/17 08:16 100 MLS/HR Review of Systems Constitutional: + weight loss, No fever, No chills, No sweats Abdomen: + pain, + diarrhea, No nausea, No vomiting, No constipation Physical Exam Date Time Temp Pulse Resp B/P (MAP) Pulse Ox O2 Delivery O2 Flow Rate FiO2 03/19/17 09:33 36.7 76 142/76 (98) 03/19/17 08:00 99 Room Air 03/19/17 07:16 36.7 83 18 158/65 (96) 99 Room Air 03/19/17 00:38 36.6 88 16 152/68 (96) 95 03/19/17 00:00 Room Air 03/18/17 23:24 36.9 98 139/67 (91) 03/18/17 23:06 36.8 116 165/69 (101) 03/18/17 21:30 116 165/69 03/18/17 17:11 36.4 92 18 164/72 (102) 97 Room Air 03/18/17 16:45 Room Air 03/18/17 16:45 36.4 92 16 164/72 (102) 97 Room Air 03/18/17 16:36 36.5 87 16 173/88 99 03/18/17 16:31 87 16 173/88 03/18/17 15:31 157/93 03/18/17 15:30 88 15 03/18/17 15:00 86 16 162/88 99 03/18/17 14:52 88 18 166/80 98 Room Air 03/18/17 13:56 94 Room Air 03/18/17 13:52 90 16 175/102 94 Room Air 03/18/17 13:01 91 18 165/83 100 Room Air 03/18/17 11:20 87 18 159/85 100 Room Air General Appearance: no apparent distress Respiratory/Chest: no respiratory distress, no accessory muscle use Cardiovascular: no edema Abdomen/GI: soft, + tenderness (RUQ), + distended (minimal) Laboratory Results Last 24 Hours Test 03/18/17 11:10 03/18/17 12:00 03/18/17 17:05 03/18/17 19:47 Lactic Acid Level 1.2 mmol/L Urine Color YELLOW Urine Appearance CLEAR Urine pH 8.5 Urine Specific Juliette 1.017 Urine Protein 2+ Urine Glucose (UA) 2+ Urine Ketones TRACE Urine Occult Blood TRACE Urine Nitrite NEG Urine Bilirubin NEG Urine Urobilinogen NEG Urine Leukocyte Esterase NEG Urine WBC (Auto) 1-5 /hpf Urine RBC (Auto) 0-4 /hpf Urine Hyaline Casts (Auto) 0 /lpf Urine Epithelial Cells (Auto) 0-5 /lpf Urine Bacteria (Auto) NEG Bedside Glucose 86 mg/dl 83 mg/dl Test 03/19/17 07:53 White Blood Count 12.38 K/uL Red Blood Count 3.82 M/uL Hemoglobin 11.8 g/dL Hematocrit 36.4 % Mean Corpuscular Volume 95.3 fL Mean Corpuscular Hemoglobin 30.9 pg Mean Corpuscular Hemoglobin Concent 32.4 g/dl Platelet Count 247 K/uL Mean Platelet Volume 11.1 fL Neutrophils (%) (Auto) 77.9 % Lymphocytes (%) (Auto) 11.9 % Monocytes (%) (Auto) 8.6 % Eosinophils (%) (Auto) 0.7 % Basophils (%) (Auto) 0.6 % Neutrophils # (Auto) 9.65 K/uL Lymphocytes # (Auto) 1.47 K/uL Monocytes # (Auto) 1.06 K/uL Eosinophils # (Auto) 0.09 K/uL Basophils # (Auto) 0.07 K/uL RDW Standard Deviation 55.8 fL RDW Coefficient of Variation 16.0 % Immature Granulocyte % (Auto) 0.3 % Immature Granulocyte # (Auto) 0.04 K/uL Prothrombin Time 10.5 SECONDS Prothromb Time International Ratio 1.0 Sodium Level 139 mmol/L Potassium Level 5.7 mmol/L Chloride Level 109 mmol/L Carbon Dioxide Level 21 mmol/L Anion Gap 9.0 mmol/L Blood Urea Nitrogen 67 mg/dl Creatinine 8.50 mg/dl Est Creatinine Clear Calc Drug Dose 8.2 ml/min Estimated GFR () 6.2 Estimated GFR (Non- 5.4 BUN/Creatinine Ratio 7.9 Random Glucose 58 mg/dl Calcium Level 9.6 mg/dl Assessment & Plan ischemic colitis, chronic Previous CT shows thickening of ascending colon/hepatic flexure. CTA essentially negative. Seen by vascular surgery. No acute abdominal findings, would recommend GI consult to consider colonoscopy. pt seen. as above. no urgent surgical issue. Rec colonoscopy ( he's never had one)...he prefers to have it done this admission If colonoscopy neg could consider gallbladder US/HIDA though gallbladder appeared ok on recent CT scan. Dr. Nassar covering for weekend.
[2017-03-19] MEDS ORDERED: INSULIN ASPART 100 UNITS/ML 3 ML PEN SQ SCH (12:00)
[2017-03-19] MEDS: CIPROFLOXACIN / D5W 400 MG in PREMIXED IN D5W 200 ML IV SCH (16:29)
[2017-03-19] MEDS ORDERED: PHARMACY GLYCEMIC MGMT CONSULT PRN (17:05)
--- NOTE | 2017-03-19 18:09 | Pharmacy Progress Note ---
Glycemic Control Intl Consult Date of Service Mar 19, 2017. Scope Glycemic Pharmacist consulted by Dr Triplett on 03/19/17 for glycemic control and to write orders per [facility] inpatient glycemic control protocol Objective Weight (Kilograms): 99.000 Accuchecks BSG (last 24hrs): Test 03/18/17 19:47 03/19/17 07:53 03/19/17 07:55 03/19/17 11:44 Bedside Glucose 83 mg/dl (70-99) 56 mg/dl (70-99) 71 mg/dl (70-99) Random Glucose 58 mg/dl (70-99) Laboratory Data (last 24hrs) Test 03/19/17 07:53 Anion Gap 9.0 mmol/L BUN/Creatinine Ratio 7.9 Blood Urea Nitrogen 67 mg/dl Creatinine 8.50 mg/dl Potassium Level 5.7 mmol/L Sodium Level 139 mmol/L White Blood Count 12.38 K/uL Red Blood Count 3.82 M/uL Hemoglobin 11.8 g/dL Hematocrit 36.4 % Mean Corpuscular Volume 95.3 fL Mean Corpuscular Hemoglobin 30.9 pg Mean Corpuscular Hemoglobin Concent 32.4 g/dl Platelet Count 247 K/uL Mean Platelet Volume 11.1 fL Neutrophils (%) (Auto) 77.9 % Lymphocytes (%) (Auto) 11.9 % Monocytes (%) (Auto) 8.6 % Eosinophils (%) (Auto) 0.7 % Basophils (%) (Auto) 0.6 % Neutrophils # (Auto) 9.65 K/uL Lymphocytes # (Auto) 1.47 K/uL Monocytes # (Auto) 1.06 K/uL Eosinophils # (Auto) 0.09 K/uL Basophils # (Auto) 0.07 K/uL Recent Pertinent Medications Outpatient Anti-diabetic Regimen: * Lantus 30-35 units HS * Novolog with meals - 18 units breakfast/ 19 units lunch/ 22 units dinner * A1c = 7.4 % 01/25/17 The patient is currently receiving: * Basal insulin: Lantus 35 units every 24 hours - last dose last night (03/18) * Correctional Insulin: Novolog Correction per scale ACHS Goal Range: Low 140 mg/dL - High 180 mg/dL Correction Factor: 25 mg/dL/unit * Prandial insulin: Novolog with meals - 18units breakfast/ 19 units lunch/ 22 units dinner - all held for NPO status today Risk Factors for Insulin Resistance: * Infection: Cipro/Flagyl * Diet: Type 1 DM just started at 1700 today Assessment & Plan ASSESSMENT: * 81 year old male type 2 diabetic, controlled on insulin at home admitted with abdominal pain and diarrhea, ischemic colitis, treating emperically with IV antibiotics. Patient experiencing hypoglycemia as inpatient due to full Lantus dose last night and NPO today. * During recent admission in January patient did not require any insulin when NPO, and only about 30units/day when eating. Diet just began and patient has been hypoglycemic all day, so I will hold Lantus tonight and possibly resume in AM. * Also change fixed doses of Novolog to CR for prandial coverage to prevent hypoglycemia and match insulin doses to carbs consumed. * ADA & AACE recommend a goal blood sugar range 140-180 mg/dl for the majority of critically ill & non-critically ill patients. However, more stringent targets may be selected in individual cases. Will continue this range for this time to avoid hypoglycemia. PLAN FOR INPATIENT GLYCEMIC CONTROL: * HOLD Lantus at this time, resume tomorrow at reduced dose (possibly 10 units daily or BID if diet continues) * Correctional Insulin with NOVOLOG per scale ACHS or Q6hrs while NPO * Goal Range: Low 140 mg/dL - High 180 mg/dL * Correction Factor: 25 mg/dL/unit * Prandial coverage: NONE at this time, will resume with likely a carb ratio of 1 unit per 10 grams CHO tomorrow if diet continues * Please note that the plan above was derived based on current level of insulin resistance and hospital stress. These recommendations are appropriate for inpatient admission only. Plan of care upon discharge will need to be reassessed to avoid potential outpatient hypo/hyperglycemia. Thank you.
[2017-03-19] MEDS: RANITIDINE HCL 150 MG TAB PO SCH (21:06)
[2017-03-19] MEDS: ATORVASTATIN 20 MG TAB PO SCH (21:06)
[2017-03-19] MEDS: METOPROLOL SUCC 50MG EXT REL TAB PO SCH (21:06)
--- NOTE | 2017-03-19 21:36 | GASTROINTESTINAL CONSULTATION ---
DATE OF CONSULTATION: 03/19/2017 REASON FOR CONSULTATION: Right-sided abdominal pain. HISTORY OF PRESENT ILLNESS: The patient is a 81-year-old male with renal failure on hemodialysis 3 days a week. The patient states for about the past week he has been experiencing some right-sided abdominal pain with 7-8 loose bowel movements a day, both during the day and during the night. It is unusual for him to have nocturnal bowel movements. The stools watery and relatively clearly, seen no visible blood in his stools. He denies any fevers, night sweats, nausea or vomiting. He was in the hospital in January with similar symptoms and it was at that time that they thought maybe he had a right colon ischemia, does have extensive peripheral vascular disease but a recent CT angiogram done yesterday shows multiple areas of calcification in his abdominal vessels including the aorta, mesenteric arteries and renal and iliac arteries; however, none of these ever felt to be significant. He did have a lactic acid level drawn at the time of admission during this hospitalization and it was normal, which would be extremely unlikely if he had ischemic colitis. A CT scan of the abdomen also showed no intrinsic bowel disorder and his gallbladder did not have any pathology evident, although most gallstones are not calcified and does not show up on a CAT scan. PAST MEDICAL HISTORY: Remarkable for atherosclerotic disease, ankylosing spondylitis, diabetes with retinopathy, cervical radiculopathy, rotator cuff disease, end-stage renal disease secondary to diabetes, he has dyslipidemia, hypertension consistent with metabolic syndrome. He has diabetic neuropathy, pseudogout, hyperparathyroidism and vitamin D deficiency. MEDICATIONS: Amlodipine, baby aspirin, Lipitor, Lantus, metoprolol, Nephrocaps, NovoLog, Percocet, PreserVision, Zantac and sodium bicarbonate. ALLERGIES: None. FAMILY HISTORY: Positive for COPD. SURGICAL HISTORY: Remarkable for knee surgery, olecranon bursa excision and hemodialysis, fistula access on his left arm. SOCIAL HISTORY: The patient smokes, social drinker and lives at home. REVIEW OF SYSTEMS: Positive for abdominal pain and fatigue. PHYSICAL EXAMINATION: GENERAL: The patient has a mercedes complexion. VITAL SIGNS: Blood pressure is 174/75, pulse is 90. ABDOMEN: Soft. Bowel sounds are normal. There is tenderness in the right upper quadrant which is worse with deep inspiration consistent with a Wright sign. No other areas of discrete tenderness. LABORATORY DATA: Shows a rising white count of over 12,000. Liver tests are normal. Lipase is normal. Albumin is normal. IMPRESSION: The patient has right upper quadrant abdominal pain with a positive Wright sign. I strongly suspect that he has intrinsic gallbladder disease which is probably not evident on CT scan. I plan on getting an ultrasound to see if he has gallstones, most gallstones are made if cholesterol and do not shown up on a CAT scan, but will show up on an ultrasound. If he has gallstones there and even if it is negative, he may need a biliary scan to prove gallbladder dysfunction. General surgery consultation may be warranted as well. I think it is unlikely as ischemic colitis in this setting and defer a colonoscopy in the short term pending his gallbladder evaluation. Dr. Lau will be covering over the weekend.
[2017-03-20] VITALS: O2SAT 99
[2017-03-20] MEDS: METRONIDAZOLE / NSS 500 MG in PREMIXED NSS 100 ML IV SCH ×4 (00:18→23:51)
--- NOTE | 2017-03-20 03:28 | Hospitalist Progress Note ---
Hospitalist Progress Note Date of Service Mar 19, 2017. Subjective Pt evaluation today including: conversation w/ patient, conversation w/ family , physical exam, chart review, lab review, review of studies, conversation w/ farm consultant patient complaining of abdominal pain improved since admission Objective Vital Signs Date Time Temp Pulse Resp B/P (MAP) Pulse Ox O2 Delivery O2 Flow Rate FiO2 03/20/17 00:00 99 Room Air 03/19/17 23:35 36.9 82 18 122/54 (76) 97 Room Air 03/19/17 16:30 Room Air 03/19/17 16:20 36.5 77 18 122/75 (91) 98 Room Air 03/19/17 13:59 36.4 81 18 149/77 (101) 97 Room Air 03/19/17 13:27 36.4 80 111/51 (71) 03/19/17 13:00 79 113/61 03/19/17 12:45 88 111/57 03/19/17 12:30 76 119/62 03/19/17 12:15 80 97/63 03/19/17 12:00 75 113/52 03/19/17 11:45 76 113/54 03/19/17 11:30 74 105/45 03/19/17 11:15 75 113/52 03/19/17 11:00 77 100/58 03/19/17 10:45 76 118/56 03/19/17 10:30 71 124/62 03/19/17 10:15 70 138/70 03/19/17 10:00 74 141/74 03/19/17 09:46 72 146/71 03/19/17 09:33 36.7 76 142/76 (98) 03/19/17 08:00 99 Room Air 03/19/17 07:16 36.7 83 18 158/65 (96) 99 Room Air Physical Exam General Appearance: no apparent distress Eyes: normal inspection Neck: trachea midline Respiratory/Chest: lungs clear Cardiovascular: regular rate, rhythm Abdomen: + tenderness (right upper quadrant) Neurologic/Psychiatric: alert Laboratory Results Last 24 Hours Test 03/19/17 07:53 03/19/17 07:55 03/19/17 11:44 03/19/17 17:09 White Blood Count 12.38 K/uL Red Blood Count 3.82 M/uL Hemoglobin 11.8 g/dL Hematocrit 36.4 % Mean Corpuscular Volume 95.3 fL Mean Corpuscular Hemoglobin 30.9 pg Mean Corpuscular Hemoglobin Concent 32.4 g/dl Platelet Count 247 K/uL Mean Platelet Volume 11.1 fL Neutrophils (%) (Auto) 77.9 % Lymphocytes (%) (Auto) 11.9 % Monocytes (%) (Auto) 8.6 % Eosinophils (%) (Auto) 0.7 % Basophils (%) (Auto) 0.6 % Neutrophils # (Auto) 9.65 K/uL Lymphocytes # (Auto) 1.47 K/uL Monocytes # (Auto) 1.06 K/uL Eosinophils # (Auto) 0.09 K/uL Basophils # (Auto) 0.07 K/uL RDW Standard Deviation 55.8 fL RDW Coefficient of Variation 16.0 % Immature Granulocyte % (Auto) 0.3 % Immature Granulocyte # (Auto) 0.04 K/uL Prothrombin Time 10.5 SECONDS Prothromb Time International Ratio 1.0 Sodium Level 139 mmol/L Potassium Level 5.7 mmol/L Chloride Level 109 mmol/L Carbon Dioxide Level 21 mmol/L Anion Gap 9.0 mmol/L Blood Urea Nitrogen 67 mg/dl Creatinine 8.50 mg/dl Est Creatinine Clear Calc Drug Dose 8.2 ml/min Estimated GFR () 6.2 Estimated GFR (Non- 5.4 BUN/Creatinine Ratio 7.9 Random Glucose 58 mg/dl Calcium Level 9.6 mg/dl Bedside Glucose 56 mg/dl 71 mg/dl 51 mg/dl Test 03/19/17 17:41 03/19/17 18:22 03/19/17 19:56 Bedside Glucose 60 mg/dl 125 mg/dl 126 mg/dl Assessment and Plan 1. Abdominal pain and diarrhea. Case discussed with Dr. Lorenzana positive limon sign will ask General surgery to see. 2. Mesenteric ischemia, continue medication management for his risk factors. Chronic no need for intervention. Colonoscopy being considered. 3. End-stage renal disease, on dialysis. He has missed his last 2 dialysis treatments. Receiving HD 4. Type 2 diabetes on insulin; his last A1c just a little over a month ago was 7.4. Continue his supplemental insulin as needed; fingersticks and sliding scale. 5. Deep venous thrombosis prophylaxis, heparin subQ. 6. Hyperlipidemia, continue his Lipitor. 7. Hypertension, continue his home medications and follow. Discharge planning: uncertain
[2017-03-20] MEDS: INSULIN ASPART 100 UNITS/ML 3 ML PEN SC SCH ×4 (06:30→20:20)
--- NOTE | 2017-03-20 06:49 | DIAGNOSTIC IMAGING REPORT ---
ABDOMEN COMPLETE (US) CLINICAL HISTORY: 81 years-old Male presenting with RUQ pain, nonspecific hyperattenuating lesion at the hepatic dome seen on CT. TECHNIQUE: Real-time grayscale and limited color Doppler ultrasound imaging of the abdomen was performed. COMPARISON: 08/12/[address] from 03/18/2017. FINDINGS: Pancreas: Obscured due to overlying bowel gas. Liver: Previously noted lesion at the right hepatic dome is not visualized by ultrasound. The liver measures 17.6 cm in maximal sagittal dimension. Main portal vein patent with normal directional flow. Biliary: No intrahepatic biliary ductal dilatation. Common bile duct measures up to 4 mm in diameter. Gallbladder: Normal in appearance without evidence of gallstones, gallbladder wall thickening, or pericholecystic fluid. Sonographic Wright's sign negative. Spleen: Normal in echogenicity but slightly enlarged, measuring 13.6 cm in length. Kidneys: Multiple well-defined anechoic avascular lesions consistent with simple cysts bilaterally, the largest on the right measuring 2.2 cm. Right kidney measures 11.7 cm, and left kidney measures 12 cm. No hydronephrosis. Vasculature: Abdominal aorta and IVC largely obscured due to overlying bowel gas. Ascites: None. IMPRESSION: 1. No evidence of cholelithiasis or cholecystitis. 2. Mildly enlarged spleen. 3. The previously noted hyperattenuating lesion at the right hepatic dome on CT from 03/18/2017 is not visible on this exam. Electronically signed by: Smith Fuchs M.D. 03/20/2017 6:47 AM Dictated Date/Time: 03/20/2017 6:44 AM
[2017-03-20 07:03] VITALS: BP 148/61; PULSE 68; TEMP 36.8; O2SAT 96
[2017-03-20] MEDS: CEROVITE ADV FORMULA TAB PO SCH (07:52)
[2017-03-20] MEDS: NEPHROCAPS PO SCH (07:52)
[2017-03-20] MEDS: ASPIRIN 81 MG ECTAB PO SCH (07:52)
[2017-03-20] MEDS: DICLOFENAC SOD 1% GEL 100 GM TUBE EXT SCH ×4 (07:52→20:19)
[2017-03-20] MEDS: AMLODIPINE BESYLATE 5 MG TAB PO SCH (07:52)
[2017-03-20] MEDS: HEPARIN SOD 5000 UNIT/0.5 ML CARP SQ SCH ×2 (07:56→20:22)
[2017-03-20 09:13] LABS: BASO % 1.7 %; BASO ABS # 0.12 K/uL (0-0.2); COMPLETE YES; EOS % 4.5 %; HEMATOCRIT 34.9 % (42-52); IG% 0.3 %; LYMPH % 17.9 %; LYMPH ABS # 1.29 K/uL (1.2-3.4); MEAN CELL VOLUME 94.3 fL (80-100); MEAN CORPUSCULAR HEMOGLOBIN 30.3 pg (25-34); MEAN CORPUSCULAR HGB CONC 32.1 g/dl (32-36); MEAN PLATELET VOLUME 11.6 fL (7.4-10.4); MONO % 12.5 %; NEUT % 63.1 %; PLATELET COUNT 232 K/uL (130-400); WHITE BLOOD COUNT 7.19 K/uL (4.8-10.8)
[2017-03-20 10:15] LABS: BUN/CREATININE RATIO 6.9 (10-20); CREATININE 5.9 mg/dl (0.60-1.40); POTASSIUM 4.8 mmol/L (3.5-5.1)
--- NOTE | 2017-03-20 10:36 | Surgery Progress Note ---
Surgery Progress Note Date of Service Mar 20, 2017. Subjective Patient examined at bedside this morning. Afebrile, vitals stable overnight on room air, no acute events. States he still has mild RUQ pain this morning. Tolerating renal diet without N/V. Continues to have loose BMs. Ambulating and voiding without difficulty. Objective Vital Signs: Date Time Temp Pulse Resp B/P (MAP) Pulse Ox O2 Delivery O2 Flow Rate FiO2 03/20/17 08:00 Room Air 03/20/17 07:03 36.8 68 16 148/61 (90) 96 Room Air 03/20/17 00:00 99 Room Air 03/19/17 23:35 36.9 82 18 122/54 (76) 97 Room Air 03/19/17 16:30 Room Air 03/19/17 16:20 36.5 77 18 122/75 (91) 98 Room Air 03/19/17 13:59 36.4 81 18 149/77 (101) 97 Room Air 03/19/17 13:27 36.4 80 111/51 (71) 03/19/17 13:00 79 113/61 03/19/17 12:45 88 111/57 03/19/17 12:30 76 119/62 03/19/17 12:15 80 97/63 03/19/17 12:00 75 113/52 03/19/17 11:45 76 113/54 03/19/17 11:30 74 105/45 03/19/17 11:15 75 113/52 03/19/17 11:00 77 100/58 03/19/17 10:45 76 118/56 General Appearance: WD/WN, no apparent distress Head: normocephalic Neck: supple, no adenopathy Respiratory/Chest: lungs clear, normal breath sounds, no respiratory distress Cardiovascular: regular rate, rhythm Abdomen: normal bowel sounds, non distended, soft, + tenderness (right upper quadrant tenderness to palpation, negative Wright's sign) Laboratory Results: Results Past 24 Hours Test 03/19/17 11:44 03/19/17 17:09 03/19/17 17:41 03/19/17 18:22 Range/Units Bedside Glucose 71 51 60 125 70-99 mg/dl Test 03/19/17 19:56 03/20/17 07:19 03/20/17 07:39 03/20/17 08:43 Range/Units Bedside Glucose 126 60 65 70-99 mg/dl White Blood Count 7.19 4.8-10.8 K/uL Red Blood Count 3.70 4.7-6.1 M/uL Hemoglobin 11.2 14.0-18.0 g/dL Hematocrit 34.9 42-52 % Mean Corpuscular Volume 94.3 80-100 fL Mean Corpuscular Hemoglobin 30.3 25-34 pg Mean Corpuscular Hemoglobin Concent 32.1 32-36 g/dl Platelet Count 232 130-400 K/uL Mean Platelet Volume 11.6 7.4-10.4 fL Neutrophils (%) (Auto) 63.1 % Lymphocytes (%) (Auto) 17.9 % Monocytes (%) (Auto) 12.5 % Eosinophils (%) (Auto) 4.5 % Basophils (%) (Auto) 1.7 % Neutrophils # (Auto) 4.54 1.4-6.5 K/uL Lymphocytes # (Auto) 1.29 1.2-3.4 K/uL Monocytes # (Auto) 0.90 0.11-0.59 K/uL Eosinophils # (Auto) 0.32 0-0.5 K/uL Basophils # (Auto) 0.12 0-0.2 K/uL RDW Standard Deviation 54.8 36.4-46.3 fL RDW Coefficient of Variation 16.0 11.5-14.5 % Immature Granulocyte % (Auto) 0.3 % Immature Granulocyte # (Auto) 0.02 0.00-0.02 K/uL Sodium Level 139 136-145 mmol/L Potassium Level 4.8 3.5-5.1 mmol/L Chloride Level 107 98-107 mmol/L Carbon Dioxide Level 26 21-32 mmol/L Anion Gap 6.0 3-11 mmol/L Blood Urea Nitrogen 41 7-18 mg/dl Creatinine 5.90 0.60-1.40 mg/dl Est Creatinine Clear Calc Drug Dose 11.7 ml/min Estimated GFR () 9.7 Estimated GFR (Non- 8.3 BUN/Creatinine Ratio 6.9 10-20 Random Glucose 120 70-99 mg/dl Calcium Level 9.0 8.5-10.1 mg/dl Assessment & Plan Elgin Galeano is a 81 year old man with ESRD, admitted for the second time this month with ischemic colitis. Previous CT shows thickening of ascending colon/ hepatic flexure. CTA essentially negative. Seen by vascular surgery. No acute abdominal findings, would recommend GI consult to consider colonoscopy. -No acute surgical intervention indicated at this time -Recommend GI consultation for colonoscopy -Gallbladder appears normal on CT and U/S, patient continues to have point tenderness in RUQ; recommend checking HIDA scan to evaluate gallbladder function. -Rest of care per primary team -Will continue to follow Yenni Nassar MD 03/20/17
--- NOTE | 2017-03-20 12:52 | Nephrology Progress Note ---
Nephrology Progress Note Date of Service Mar 20, 2017. Chief Complaint Follow-up for end-stage renal disease on hemodialysis. Subjective Ed was seen and examined in his room this morning. Overall he is very very frustrated and unhappy just being in hospital. His abdominal pain and diarrhea seems to have improved. had dialysis yesterday, currently blood pressure, volume status and electrolyte acceptable. He is still makes urine. Review of Systems A complete review of systems was performed. Pertinent positives are noted above. All other systems are negative. Vital Signs Last 8 Hrs Date Time Temp Pulse Resp B/P (MAP) Pulse Ox O2 Delivery O2 Flow Rate FiO2 03/20/17 08:00 Room Air 03/20/17 07:03 36.8 68 16 148/61 (90) 96 Room Air Last Recorded Weight Weight (Kilograms): 98.400 Physical Exam GENERAL: Elderly male, AAA x 3, pleasant, healthy-appearing, not in any distress. NECK: Supple, no JVD. RESPIRATORY: Normal breathing efforts, no accessory muscle use, clear to auscultation bilaterally, no wheezes or rales. CARDIOVASCULAR: S1, S2 normal, rate rhythm regular. EXTREMITY: No lower extremity edema NEURO: speech fluent. PSYCHIATRY: Normal mood and judgment Family History No pertinent family history Negative for CKD / ESRD Social History Drug Use: none Marital Status: Housing Status: lives with family Occupation: retired . has Alzheimers and requires home health nursing. Patient is retired. Current smoker Laboratory Results Past 24 Hours 03/20/17 08:43 Red Blood Count 3.70, Mean Corpuscular Volume 94.3, Mean Corpuscular Hemoglobin 30.3, Mean Corpuscular Hemoglobin Concent 32.1, Mean Platelet Volume 11.6, Neutrophils (%) (Auto) 63.1, Lymphocytes (%) (Auto) 17.9, Monocytes (%) (Auto) 12.5, Eosinophils (%) (Auto) 4.5, Basophils (%) (Auto) 1.7, Neutrophils # (Auto ) 4.54, Lymphocytes # (Auto) 1.29, Monocytes # (Auto) 0.90, Eosinophils # (Auto ) 0.32, Basophils # (Auto) 0.12 03/20/17 08:43 Test 03/19/17 17:09 03/19/17 17:41 03/19/17 18:22 03/19/17 19:56 Bedside Glucose 51 mg/dl (70-99) 60 mg/dl (70-99) 125 mg/dl (70-99) 126 mg/dl (70-99) Test 03/20/17 07:19 03/20/17 07:39 03/20/17 08:43 Bedside Glucose 60 mg/dl (70-99) 65 mg/dl (70-99) White Blood Count 7.19 K/uL (4.8-10.8) Red Blood Count 3.70 M/uL (4.7-6.1) Hemoglobin 11.2 g/dL (14.0-18.0) Hematocrit 34.9 % (42-52) Mean Corpuscular Volume 94.3 fL (80-100) Mean Corpuscular Hemoglobin 30.3 pg (25-34) Mean Corpuscular Hemoglobin Concent 32.1 g/dl (32-36) Platelet Count 232 K/uL (130-400) Mean Platelet Volume 11.6 fL (7.4-10.4) Neutrophils (%) (Auto) 63.1 % Lymphocytes (%) (Auto) 17.9 % Monocytes (%) (Auto) 12.5 % Eosinophils (%) (Auto) 4.5 % Basophils (%) (Auto) 1.7 % Neutrophils # (Auto) 4.54 K/uL (1.4-6.5) Lymphocytes # (Auto) 1.29 K/uL (1.2-3.4) Monocytes # (Auto) 0.90 K/uL (0.11-0.59) Eosinophils # (Auto) 0.32 K/uL (0-0.5) Basophils # (Auto) 0.12 K/uL (0-0.2) RDW Standard Deviation 54.8 fL (36.4-46.3) RDW Coefficient of Variation 16.0 % (11.5-14.5) Immature Granulocyte % (Auto) 0.3 % Immature Granulocyte # (Auto) 0.02 K/uL (0.00-0.02) Anion Gap 6.0 mmol/L (3-11) Est Creatinine Clear Calc Drug Dose 11.7 ml/min Estimated GFR () 9.7 Estimated GFR (Non- 8.3 BUN/Creatinine Ratio 6.9 (10-20) Calcium Level 9.0 mg/dl (8.5-10.1) Allergies Coded Allergies: No Known Allergies (Unverified , 03/18/17) Medications Current Inpatient Medications Medications (Trade) Dose Ordered Sig/Brennan Route Start Time Stop Time Status Last Admin Dose Admin Ioversol (Optiray 320) 125 ml UD PRN IV 03/18/17 10:30 03/22/17 10:29 Ondansetron HCl (Zofran Inj) 4 mg Q6H PRN IV 03/18/17 15:45 04/17/17 15:44 Amlodipine Besylate (Norvasc Tab) 5 mg QAM PO 03/19/17 09:00 04/18/17 08:59 03/19/17 08:17 5 MG Aspirin (Ecotrin Tab) 81 mg QAM PO 03/19/17 09:00 04/18/17 08:59 03/20/17 07:52 81 MG Lidocaine/ Prilocaine (Emla 2.5% Crm) 1 ea UD PRN EXT 03/18/17 15:45 04/17/17 15:44 Metoprolol Succinate (Toprol Xl Tab) 50 mg QPM PO 03/18/17 21:00 04/17/17 20:59 03/19/17 21:06 50 MG Multivitamins/ Minerals (Multivitamin W/ Minerals Tab) 1 tab DAILY PO 03/19/17 09:00 04/18/17 08:59 03/20/17 07:52 1 TAB Ranitidine HCl (zANTac TAB) 150 mg HS PO 03/18/17 21:00 04/17/17 20:59 03/19/17 21:06 150 MG Vitamin B Complex/ Vit C/Folic Acid (Nephrocaps) 1 cap DAILY PO 03/19/17 09:00 04/18/17 08:59 03/20/17 07:52 1 CAP Diclofenac Sodium (Voltaren 1% Top Gel) 1 appln QID EXT 03/18/17 17:00 04/17/17 16:59 03/20/17 07:52 1 APPLN Temazepam (Restoril Cap) 7.5 mg HS PRN PO 03/18/17 15:45 04/17/17 15:44 Insulin Aspart (novoLOG ASPART) SLIDING SCALE G... ACHS SC 03/18/17 21:00 04/17/17 20:59 Ciprofloxacin/ Dextrose 400 mg/ Prmx 200 ml @ 100 mls/hr Q24H IV 03/19/17 16:00 03/29/17 15:59 03/19/17 16:29 100 MLS/HR Glucose (Glucose 40% Gel) 15-30 GRAMS 15 GRAMS... UD PRN PO 03/18/17 18:15 04/17/17 18:14 Glucose (Glucose Chew Tab) 4-8 Tablets 4 Tabl... UD PRN PO 03/18/17 18:15 04/17/17 18:14 Dextrose (Dextrose 50% 50ML Syringe) 25-50ML OF 50% DW IV FOR... UD PRN IV 03/18/17 18:15 04/17/17 18:14 Glucagon (Glucagon Inj) 1 mg UD PRN SQ 03/18/17 18:15 04/17/17 18:14 Heparin Sodium (Porcine) (Heparin Sq 5000 Unit/0.5ml) 5,000 unit Q12 SQ 03/19/17 09:00 04/18/17 08:59 03/20/17 07:56 5,000 UNIT Atorvastatin Calcium (Lipitor Tab) 40 mg HS PO 03/19/17 21:00 04/17/17 20:59 03/19/17 21:06 40 MG Metronidazole 500 mg/Prmx 100 ml @ 100 mls/hr Q8H IV 03/19/17 00:00 03/29/17 00:00 03/20/17 07:51 100 MLS/HR Miscellaneous Information (Consult Glycemic Management Pharmacy) 1 ea UD PRN N/A 03/19/17 17:05 04/18/17 17:04 Impression (1) ESRD on hemodialysis (2) Right sided abdominal pain (3) Diarrhea (4) Ischemic colitis (5) Hypertension (6) Diabetes mellitus Mr. Galeano was admitted to the hospital for evaluation of recurrent lower abdominal pain and diarrhea. Abdominal CT shows extensive atherosclerosis but no acute colitis. Surgical consultation has been requested. Stool cultures have been ordered. Patient is afebrile w/ normal WBC #. He does not have clinical signs of acute infection or sepsis at this time. He requires HD this evening due to hyperkalemia and metabolic acidosis Recommendations --Had dialysis yesterday, currently volume status blood pressure and electrolyte acceptable. Although 2 days his regular day considering the fact that he had dialysis yesterday, continues to have some ongoing diarrhea and still makes urine, will skip dialysis today and monitor closely over the weekend and plan for next dialysis on Wednesday. --continue on phosphate binder with meals and Nephrocaps --Blood pressure remains acceptable. Continue current medical regimen -- Await stool culture results -- IV Cipro & Flagyl as per primary service and tour consultant
--- NOTE | 2017-03-20 14:45 | Gastroenterology Progress Note ---
Progress Note Date of Service: Mar 20, 2017 Subjective Pt evaluation today including: conversation w/ patient, physical exam, chart review, lab review, review of studies, review of inpatient medication list CC f/u abd pain, diarrhea HPI Pt states had RUQ last admit 01/2017 but that time Right colon had signs on CT of possible ischemia. Pt states RUQ pain somewhat better today. Less diarrhea. Tolerating diet. Review of Systems Respiratory: No shortness of breath Cardiac: No chest pain Medications Current Inpatient Medications Medications (Trade) Dose Ordered Sig/Brennan Route Start Time Stop Time Status Last Admin Dose Admin Ioversol (Optiray 320) 125 ml UD PRN IV 03/18/17 10:30 03/22/17 10:29 Ondansetron HCl (Zofran Inj) 4 mg Q6H PRN IV 03/18/17 15:45 04/17/17 15:44 Amlodipine Besylate (Norvasc Tab) 5 mg QAM PO 03/19/17 09:00 04/18/17 08:59 03/19/17 08:17 5 MG Aspirin (Ecotrin Tab) 81 mg QAM PO 03/19/17 09:00 04/18/17 08:59 03/20/17 07:52 81 MG Lidocaine/ Prilocaine (Emla 2.5% Crm) 1 ea UD PRN EXT 03/18/17 15:45 04/17/17 15:44 Metoprolol Succinate (Toprol Xl Tab) 50 mg QPM PO 03/18/17 21:00 04/17/17 20:59 03/19/17 21:06 50 MG Multivitamins/ Minerals (Multivitamin W/ Minerals Tab) 1 tab DAILY PO 03/19/17 09:00 04/18/17 08:59 03/20/17 07:52 1 TAB Ranitidine HCl (zANTac TAB) 150 mg HS PO 03/18/17 21:00 04/17/17 20:59 03/19/17 21:06 150 MG Vitamin B Complex/ Vit C/Folic Acid (Nephrocaps) 1 cap DAILY PO 03/19/17 09:00 04/18/17 08:59 03/20/17 07:52 1 CAP Diclofenac Sodium (Voltaren 1% Top Gel) 1 appln QID EXT 03/18/17 17:00 04/17/17 16:59 03/20/17 13:17 1 APPLN Temazepam (Restoril Cap) 7.5 mg HS PRN PO 03/18/17 15:45 04/17/17 15:44 Insulin Aspart (novoLOG ASPART) SLIDING SCALE G... ACHS SC 03/18/17 21:00 04/17/17 20:59 Ciprofloxacin/ Dextrose 400 mg/ Prmx 200 ml @ 100 mls/hr Q24H IV 03/19/17 16:00 03/29/17 15:59 03/19/17 16:29 100 MLS/HR Glucose (Glucose 40% Gel) 15-30 GRAMS 15 GRAMS... UD PRN PO 03/18/17 18:15 04/17/17 18:14 Glucose (Glucose Chew Tab) 4-8 Tablets 4 Tabl... UD PRN PO 03/18/17 18:15 04/17/17 18:14 Dextrose (Dextrose 50% 50ML Syringe) 25-50ML OF 50% DW IV FOR... UD PRN IV 03/18/17 18:15 04/17/17 18:14 Glucagon (Glucagon Inj) 1 mg UD PRN SQ 03/18/17 18:15 04/17/17 18:14 Heparin Sodium (Porcine) (Heparin Sq 5000 Unit/0.5ml) 5,000 unit Q12 SQ 03/19/17 09:00 04/18/17 08:59 03/20/17 07:56 5,000 UNIT Atorvastatin Calcium (Lipitor Tab) 40 mg HS PO 03/19/17 21:00 04/17/17 20:59 03/19/17 21:06 40 MG Metronidazole 500 mg/Prmx 100 ml @ 100 mls/hr Q8H IV 03/19/17 00:00 03/29/17 00:00 03/20/17 07:51 100 MLS/HR Miscellaneous Information (Consult Glycemic Management Pharmacy) 1 ea UD PRN N/A 03/19/17 17:05 04/18/17 17:04 Objective Vital Signs Date Time Temp Pulse Resp B/P (MAP) Pulse Ox O2 Delivery O2 Flow Rate FiO2 03/20/17 08:00 Room Air 03/20/17 07:03 36.8 68 16 148/61 (90) 96 Room Air 03/20/17 00:00 99 Room Air 03/19/17 23:35 36.9 82 18 122/54 (76) 97 Room Air 03/19/17 16:30 Room Air 03/19/17 16:20 36.5 77 18 122/75 (91) 98 Room Air Physical Exam General Appearance: WD/WN, no apparent distress Respiratory/Chest: normal breath sounds, no respiratory distress Cardiovascular: no murmur Abdomen: normal bowel sounds, soft, no organomegaly, + tenderness (RUQ guarding but no rebound) Laboratory Results Last 24 Hours Test 03/19/17 17:09 03/19/17 17:41 03/19/17 18:22 03/19/17 19:56 Bedside Glucose 51 mg/dl 60 mg/dl 125 mg/dl 126 mg/dl Test 03/20/17 07:19 03/20/17 07:39 03/20/17 08:43 Bedside Glucose 60 mg/dl 65 mg/dl White Blood Count 7.19 K/uL Red Blood Count 3.70 M/uL Hemoglobin 11.2 g/dL Hematocrit 34.9 % Mean Corpuscular Volume 94.3 fL Mean Corpuscular Hemoglobin 30.3 pg Mean Corpuscular Hemoglobin Concent 32.1 g/dl Platelet Count 232 K/uL Mean Platelet Volume 11.6 fL Neutrophils (%) (Auto) 63.1 % Lymphocytes (%) (Auto) 17.9 % Monocytes (%) (Auto) 12.5 % Eosinophils (%) (Auto) 4.5 % Basophils (%) (Auto) 1.7 % Neutrophils # (Auto) 4.54 K/uL Lymphocytes # (Auto) 1.29 K/uL Monocytes # (Auto) 0.90 K/uL Eosinophils # (Auto) 0.32 K/uL Basophils # (Auto) 0.12 K/uL RDW Standard Deviation 54.8 fL RDW Coefficient of Variation 16.0 % Immature Granulocyte % (Auto) 0.3 % Immature Granulocyte # (Auto) 0.02 K/uL Sodium Level 139 mmol/L Potassium Level 4.8 mmol/L Chloride Level 107 mmol/L Carbon Dioxide Level 26 mmol/L Anion Gap 6.0 mmol/L Blood Urea Nitrogen 41 mg/dl Creatinine 5.90 mg/dl Est Creatinine Clear Calc Drug Dose 11.7 ml/min Estimated GFR () 9.7 Estimated GFR (Non- 8.3 BUN/Creatinine Ratio 6.9 Random Glucose 120 mg/dl Calcium Level 9.0 mg/dl Assessment and Plan RUQ pain--us of GB negative for pathology, Check HIDA with EF but not done on so ordered for wednesday. Right colon could give pain in RUQ as well as PUD. May need EGD at some point. diarrhea--stool cx pending. Do not see Cdiff in results so order that. If Cdiff negative will need colonoscopy. Will put on clears in am so if cdiff negative then perhaps do colo wednesday. Possible mesenteric ischemia--abnormal CT 01/2017---vascular stated no intervention needed with CTA no occlusions of major mesenteric vessels
[2017-03-20 14:51] VITALS: BP 145/71; PULSE 72; TEMP 36.7; O2SAT 94
[2017-03-20] MEDS: CIPROFLOXACIN / D5W 400 MG in PREMIXED IN D5W 200 ML IV SCH (15:44)
[2017-03-20] MEDS: ATORVASTATIN 20 MG TAB PO SCH (20:19)
[2017-03-20] MEDS: RANITIDINE HCL 150 MG TAB PO SCH (20:20)
[2017-03-20] MEDS: METOPROLOL SUCC 50MG EXT REL TAB PO SCH (20:20)
[2017-03-20 20:25] VITALS: BP 140/72; PULSE 80
[2017-03-20 23:08] VITALS: BP 136/74; PULSE 78; TEMP 36.9; O2SAT 94
[2017-03-21] VITALS: O2SAT 99
--- NOTE | 2017-03-21 00:53 | Hospitalist Progress Note ---
Hospitalist Progress Note Date of Service Mar 20, 2017. Subjective Pt evaluation today including: conversation w/ patient Pain: ruq pain improved patient with no new complaints Objective Vital Signs Date Time Temp Pulse Resp B/P (MAP) Pulse Ox O2 Delivery O2 Flow Rate FiO2 03/20/17 00:00 99 Room Air 03/19/17 23:35 36.9 82 18 122/54 (76) 97 Room Air 03/19/17 16:30 Room Air 03/19/17 16:20 36.5 77 18 122/75 (91) 98 Room Air 03/19/17 13:59 36.4 81 18 149/77 (101) 97 Room Air 03/19/17 13:27 36.4 80 111/51 (71) 03/19/17 13:00 79 113/61 03/19/17 12:45 88 111/57 03/19/17 12:30 76 119/62 03/19/17 12:15 80 97/63 03/19/17 12:00 75 113/52 03/19/17 11:45 76 113/54 03/19/17 11:30 74 105/45 03/19/17 11:15 75 113/52 03/19/17 11:00 77 100/58 03/19/17 10:45 76 118/56 03/19/17 10:30 71 124/62 03/19/17 10:15 70 138/70 03/19/17 10:00 74 141/74 03/19/17 09:46 72 146/71 03/19/17 09:33 36.7 76 142/76 (98) 03/19/17 08:00 99 Room Air 03/19/17 07:16 36.7 83 18 158/65 (96) 99 Room Air Physical Exam General Appearance: no apparent distress Eyes: normal inspection ENT: hearing grossly normal Neck: trachea midline Respiratory/Chest: lungs clear Cardiovascular: regular rate, rhythm Abdomen: non tender Extremities: normal range of motion, non-tender Laboratory Results Last 24 Hours Test 03/19/17 07:53 03/19/17 07:55 03/19/17 11:44 03/19/17 17:09 White Blood Count 12.38 K/uL Red Blood Count 3.82 M/uL Hemoglobin 11.8 g/dL Hematocrit 36.4 % Mean Corpuscular Volume 95.3 fL Mean Corpuscular Hemoglobin 30.9 pg Mean Corpuscular Hemoglobin Concent 32.4 g/dl Platelet Count 247 K/uL Mean Platelet Volume 11.1 fL Neutrophils (%) (Auto) 77.9 % Lymphocytes (%) (Auto) 11.9 % Monocytes (%) (Auto) 8.6 % Eosinophils (%) (Auto) 0.7 % Basophils (%) (Auto) 0.6 % Neutrophils # (Auto) 9.65 K/uL Lymphocytes # (Auto) 1.47 K/uL Monocytes # (Auto) 1.06 K/uL Eosinophils # (Auto) 0.09 K/uL Basophils # (Auto) 0.07 K/uL RDW Standard Deviation 55.8 fL RDW Coefficient of Variation 16.0 % Immature Granulocyte % (Auto) 0.3 % Immature Granulocyte # (Auto) 0.04 K/uL Prothrombin Time 10.5 SECONDS Prothromb Time International Ratio 1.0 Sodium Level 139 mmol/L Potassium Level 5.7 mmol/L Chloride Level 109 mmol/L Carbon Dioxide Level 21 mmol/L Anion Gap 9.0 mmol/L Blood Urea Nitrogen 67 mg/dl Creatinine 8.50 mg/dl Est Creatinine Clear Calc Drug Dose 8.2 ml/min Estimated GFR () 6.2 Estimated GFR (Non- 5.4 BUN/Creatinine Ratio 7.9 Random Glucose 58 mg/dl Calcium Level 9.6 mg/dl Bedside Glucose 56 mg/dl 71 mg/dl 51 mg/dl Test 03/19/17 17:41 03/19/17 18:22 03/19/17 19:56 Bedside Glucose 60 mg/dl 125 mg/dl 126 mg/dl Assessment and Plan 1. Abdominal pain and diarrhea. HIDA scan ordered for Wednesday. May need EDG if negative 2. Mesenteric ischemia, continue medication management for his risk factors. Chronic no need for intervention. Colonoscopy being considered. 3. End-stage renal disease, on dialysis. He has missed his last 2 dialysis treatments. Receiving HD 4. Type 2 diabetes on insulin; his last A1c just a little over a month ago was 7.4. Continue his supplemental insulin as needed; fingersticks and sliding scale. 5. Deep venous thrombosis prophylaxis, heparin subQ. 6. Hyperlipidemia, continue his Lipitor. 7. Hypertension, continue his home medications and follow. Discharge planning: uncertain
[2017-03-21] MEDS: INSULIN ASPART 100 UNITS/ML 3 ML PEN SC SCH ×4 (06:30→21:00)
[2017-03-21 07:44] VITALS: BP 149/76; PULSE 75; TEMP 36.4; O2SAT 96
[2017-03-21] MEDS: CEROVITE ADV FORMULA TAB PO SCH (07:56)
[2017-03-21] MEDS: AMLODIPINE BESYLATE 5 MG TAB PO SCH (07:57)
[2017-03-21] MEDS: METRONIDAZOLE / NSS 500 MG in PREMIXED NSS 100 ML IV SCH ×3 (07:58→23:54)
[2017-03-21] MEDS: NEPHROCAPS PO SCH (07:58)
[2017-03-21] MEDS: ASPIRIN 81 MG ECTAB PO SCH (07:58)
[2017-03-21] MEDS: DICLOFENAC SOD 1% GEL 100 GM TUBE EXT SCH ×4 (07:59→21:12)
[2017-03-21] MEDS: HEPARIN SOD 5000 UNIT/0.5 ML CARP SQ SCH ×2 (08:02→21:10)
[2017-03-21 08:35] LABS: HEMATOCRIT 33.6 % (42-52); MEAN CELL VOLUME 91.8 fL (80-100); MEAN CORPUSCULAR HEMOGLOBIN 30.1 pg (25-34); MEAN CORPUSCULAR HGB CONC 32.7 g/dl (32-36); MEAN PLATELET VOLUME 11.4 fL (7.4-10.4); PLATELET COUNT 250 K/uL (130-400); RED BLOOD COUNT 3.66 M/uL (4.7-6.1); WHITE BLOOD COUNT 8.43 K/uL (4.8-10.8)
[2017-03-21] MEDS ORDERED: INSULIN GLARGINE SOLOSTAR 100 UNITS/ML 3 ML PEN SC SCH (09:00)
[2017-03-21 09:15] LABS: BLOOD UREA NITROGEN 56 mg/dl (7-18); BUN/CREATININE RATIO 8.2 (10-20); CALCIUM 8.7 mg/dl (8.5-10.1); CARBON DIOXIDE 17 mmol/L (21-32); CHLORIDE 110 mmol/L (98-107); GLUCOSE 152 mg/dl (70-99); SODIUM 137 mmol/L (136-145)
--- NOTE | 2017-03-21 10:24 | Surgery Progress Note ---
Surgery Progress Note Date of Service Mar 21, 2017. Subjective Patient examined at bedside this morning. Afebrile, vitals stable on room air, no acute events overnight. Sitting up comfortably in chair this morning in NAD ; currently denies abdominal pain. Tolerating clear liquids without N/V. Still has mild tenderness to palpation in RUQ, otherwise soft, no rebound / guarding. Last BM yesterday. Objective Vital Signs: Date Time Temp Pulse Resp B/P (MAP) Pulse Ox O2 Delivery O2 Flow Rate FiO2 03/21/17 08:00 Room Air 03/21/17 07:44 36.4 75 18 149/76 (100) 96 Room Air 03/21/17 00:00 99 Room Air 03/20/17 23:08 36.9 78 20 136/74 (94) 94 Room Air 03/20/17 20:25 80 140/72 (94) 03/20/17 16:00 Room Air 03/20/17 14:51 36.7 72 16 145/71 (95) 94 Room Air General Appearance: WD/WN, no apparent distress Head: normocephalic Neck: supple Respiratory/Chest: lungs clear, normal breath sounds Cardiovascular: regular rate, rhythm Abdomen: normal bowel sounds, non distended, soft (no rebound / guarding), + tenderness (mild tenderness to palpation in RUQ) Laboratory Results: Results Past 24 Hours Test 03/20/17 11:24 03/20/17 16:23 03/20/17 20:02 03/21/17 07:29 Range/Units Bedside Glucose 145 155 150 140 70-99 mg/dl Test 03/21/17 08:11 Range/Units White Blood Count 8.43 4.8-10.8 K/uL Red Blood Count 3.66 4.7-6.1 M/uL Hemoglobin 11.0 14.0-18.0 g/dL Hematocrit 33.6 42-52 % Mean Corpuscular Volume 91.8 80-100 fL Mean Corpuscular Hemoglobin 30.1 25-34 pg Mean Corpuscular Hemoglobin Concent 32.7 32-36 g/dl RDW Standard Deviation 53.0 36.4-46.3 fL RDW Coefficient of Variation 15.8 11.5-14.5 % Platelet Count 250 130-400 K/uL Mean Platelet Volume 11.4 7.4-10.4 fL Sodium Level 137 136-145 mmol/L Potassium Level 3.5-5.1 mmol/L Chloride Level 110 98-107 mmol/L Carbon Dioxide Level 17 21-32 mmol/L Anion Gap 10.0 3-11 mmol/L Blood Urea Nitrogen 56 7-18 mg/dl Creatinine 6.90 0.60-1.40 mg/dl Est Creatinine Clear Calc Drug Dose 10.0 ml/min Estimated GFR () 8.0 Estimated GFR (Non- 6.9 BUN/Creatinine Ratio 8.2 10-20 Random Glucose 152 70-99 mg/dl Calcium Level 8.7 8.5-10.1 mg/dl Microbiology Results 03/21/17 C.difficile Toxin B Gene (PCR), Received Pending Assessment & Plan Elgin Galeano is a 81 year old man with ESRD, admitted for the second time this month with ischemic colitis. Previous CT shows thickening of ascending colon/ hepatic flexure. CTA essentially negative. Seen by vascular surgery. No acute abdominal findings. Continues to have mild point tenderness in RUQ. -No acute surgical intervention indicated at this time -C diff pending - if negative, GI planning to do colonoscopy tomorrow -Gallbladder appears normal on CT and U/S, patient continues to have point tenderness in RUQ; HIDA scan ordered, to be done tomorrow. -Rest of care per primary team -Will continue to follow Yenni Nassar MD 03/21/17
--- NOTE | 2017-03-21 10:51 | Nephrology Progress Note ---
Nephrology Progress Note Date of Service Mar 21, 2017. Chief Complaint Follow-up for end-stage renal disease on hemodialysis. Subjective Ed was seen and examined in his room this morning. Overall he is feeling slightly better, abdominal pain improved. Had dialysis Wednesday, currently blood pressure, volume status and electrolyte acceptable. He is still makes urine. Review of Systems A complete review of systems was performed. Pertinent positives are noted above. All other systems are negative. Vital Signs Last 8 Hrs Date Time Temp Pulse Resp B/P (MAP) Pulse Ox O2 Delivery O2 Flow Rate FiO2 03/21/17 08:00 Room Air 03/21/17 07:44 36.4 75 18 149/76 (100) 96 Room Air Last Recorded Weight Weight (Kilograms): 98.400 Physical Exam GENERAL: Elderly male, AAA x 3, pleasant, healthy-appearing, not in any distress. NECK: Supple, no JVD. RESPIRATORY: Normal breathing efforts, no accessory muscle use, clear to auscultation bilaterally, no wheezes or rales. CARDIOVASCULAR: S1, S2 normal, rate rhythm regular. EXTREMITY: No lower extremity edema NEURO: speech fluent. PSYCHIATRY: Normal mood and judgment Family History No pertinent family history Negative for CKD / ESRD Social History Drug Use: none Marital Status: Housing Status: lives with family Occupation: retired . has Alzheimers and requires home health nursing. Patient is retired. Current smoker Laboratory Results Past 24 Hours 03/21/17 08:11 03/21/17 08:11 Test 03/20/17 11:24 03/20/17 16:23 03/20/17 20:02 03/21/17 07:29 Bedside Glucose 145 mg/dl (70-99) 155 mg/dl (70-99) 150 mg/dl (70-99) 140 mg/dl (70-99) Test 03/21/17 08:11 Red Blood Count 3.66 M/uL (4.7-6.1) Mean Corpuscular Volume 91.8 fL (80-100) Mean Corpuscular Hemoglobin 30.1 pg (25-34) Mean Corpuscular Hemoglobin Concent 32.7 g/dl (32-36) RDW Standard Deviation 53.0 fL (36.4-46.3) RDW Coefficient of Variation 15.8 % (11.5-14.5) Mean Platelet Volume 11.4 fL (7.4-10.4) Anion Gap 10.0 mmol/L (3-11) Est Creatinine Clear Calc Drug Dose 10.0 ml/min Estimated GFR () 8.0 Estimated GFR (Non- 6.9 BUN/Creatinine Ratio 8.2 (10-20) Calcium Level 8.7 mg/dl (8.5-10.1) Allergies Coded Allergies: No Known Allergies (Unverified , 03/18/17) Medications Current Inpatient Medications Medications (Trade) Dose Ordered Sig/Brennan Route Start Time Stop Time Status Last Admin Dose Admin Ioversol (Optiray 320) 125 ml UD PRN IV 03/18/17 10:30 03/22/17 10:29 Ondansetron HCl (Zofran Inj) 4 mg Q6H PRN IV 03/18/17 15:45 04/17/17 15:44 Amlodipine Besylate (Norvasc Tab) 5 mg QAM PO 03/19/17 09:00 04/18/17 08:59 03/21/17 07:57 5 MG Aspirin (Ecotrin Tab) 81 mg QAM PO 03/19/17 09:00 04/18/17 08:59 03/21/17 07:58 81 MG Lidocaine/ Prilocaine (Emla 2.5% Crm) 1 ea UD PRN EXT 03/18/17 15:45 04/17/17 15:44 Metoprolol Succinate (Toprol Xl Tab) 50 mg QPM PO 03/18/17 21:00 04/17/17 20:59 03/20/17 20:20 50 MG Multivitamins/ Minerals (Multivitamin W/ Minerals Tab) 1 tab DAILY PO 03/19/17 09:00 04/18/17 08:59 03/21/17 07:56 1 TAB Ranitidine HCl (zANTac TAB) 150 mg HS PO 03/18/17 21:00 04/17/17 20:59 03/20/17 20:20 150 MG Vitamin B Complex/ Vit C/Folic Acid (Nephrocaps) 1 cap DAILY PO 03/19/17 09:00 04/18/17 08:59 03/21/17 07:58 1 CAP Diclofenac Sodium (Voltaren 1% Top Gel) 1 appln QID EXT 8/24/17 17:00 04/17/17 16:59 03/21/17 07:59 1 APPLN Temazepam (Restoril Cap) 7.5 mg HS PRN PO 03/18/17 15:45 04/17/17 15:44 Insulin Aspart (novoLOG ASPART) SLIDING SCALE G... ACHS SC 03/18/17 21:00 04/17/17 20:59 Ciprofloxacin/ Dextrose 400 mg/ Prmx 200 ml @ 100 mls/hr Q24H IV 03/19/17 16:00 03/29/17 15:59 03/20/17 15:44 100 MLS/HR Glucose (Glucose 40% Gel) 15-30 GRAMS 15 GRAMS... UD PRN PO 03/18/17 18:15 04/17/17 18:14 Glucose (Glucose Chew Tab) 4-8 Tablets 4 Tabl... UD PRN PO 03/18/17 18:15 04/17/17 18:14 Dextrose (Dextrose 50% 50ML Syringe) 25-50ML OF 50% DW IV FOR... UD PRN IV 03/18/17 18:15 04/17/17 18:14 Glucagon (Glucagon Inj) 1 mg UD PRN SQ 03/18/17 18:15 04/17/17 18:14 Heparin Sodium (Porcine) (Heparin Sq 5000 Unit/0.5ml) 5,000 unit Q12 SQ 03/19/17 09:00 04/18/17 08:59 03/21/17 08:02 5,000 UNIT Atorvastatin Calcium (Lipitor Tab) 40 mg HS PO 03/19/17 21:00 04/17/17 20:59 03/20/17 20:19 40 MG Metronidazole 500 mg/Prmx 100 ml @ 100 mls/hr Q8H IV 03/19/17 00:00 03/29/17 00:00 03/21/17 07:58 100 MLS/HR Miscellaneous Information (Consult Glycemic Management Pharmacy) 1 ea UD PRN N/A 03/19/17 17:05 04/18/17 17:04 Impression (1) ESRD on hemodialysis (2) Right sided abdominal pain (3) Diarrhea (4) Ischemic colitis (5) Hypertension (6) Diabetes mellitus Mr. Galeano was admitted to the hospital for evaluation of recurrent lower abdominal pain and diarrhea. Abdominal CT shows extensive atherosclerosis but no acute colitis. Surgical consultation has been requested. Stool cultures have been ordered. Patient is afebrile w/ normal WBC #. He does not have clinical signs of acute infection or sepsis at this time. He requires HD this evening due to hyperkalemia and metabolic acidosis Recommendations --currently volume status blood pressure and electrolyte acceptable, monitor closely over the weekend and plan for next dialysis on Wednesday. --continue on phosphate binder with meals and Nephrocaps --Blood pressure remains acceptable. Continue current medical regimen -- Await stool culture results -- IV Cipro & Flagyl as per primary service and retail consultant --he is scheduled for HIDA scan tomorrow.
--- NOTE | 2017-03-21 13:27 | Pharmacy Progress Note ---
Glycemic: Assessment & Plan Date of Service Mar 21, 2017. Assessment & Plan ASSESSMENT: * 81 yo M known to glycemic service from prior admission in 2017 * Similar to January 2017, patient experienced sustained hypoglycemia * Pharmacy consulted morning after patient received home dose of Lantus 35 units on 03/18/17 * Since this time, patient has required 0 units of insulin with BSGs ranging 56- 156 over the past 48 hours * My goal was to give patient a very light basal dose when BSGs sustained >140 so this morning I had entered 10 units X 1 * Per nursing documentation, pt declined this dose * At this point, continue to follow along and change Novolog to include some carb coverage since basal insulin has been refused PLAN: * Basal insulin: Lantus 10 units X 1 refused * Correctional Insulin: Novolog Correction per scale ACHS Goal Range: Low 140 mg/dL - High 180 mg/dL Correction Factor: 45 mg/dL/unit * Prandial insulin: Per carb ratio of 1 unit per 15 grams CHO consumed Pharmacy will continue to monitor patient daily and write orders per [facility] inpatient glycemic control protocol. Thanks. * Please note that the plan above was derived based on current level of insulin resistance and hospital stress. These recommendations are appropriate for inpatient admission only. Plan of care upon discharge will need to be reassessed to avoid potential outpatient hypo/hyperglycemia.
--- NOTE | 2017-03-21 14:25 | Gastroenterology Progress Note ---
Progress Note Date of Service: Mar 21, 2017 Subjective Pt evaluation today including: conversation w/ patient, physical exam, chart review, lab review, review of studies, review of inpatient medication list CC f/u abd pain, diarrhea HPI Just small amount of stool non bloody this am per patient. Still with RUQ pain. Tolerating diet. Review of Systems Respiratory: No shortness of breath Cardiac: No chest pain Medications Current Inpatient Medications Medications (Trade) Dose Ordered Sig/Brennan Route Start Time Stop Time Status Last Admin Dose Admin Ioversol (Optiray 320) 125 ml UD PRN IV 03/18/17 10:30 03/22/17 10:29 Ondansetron HCl (Zofran Inj) 4 mg Q6H PRN IV 03/18/17 15:45 04/17/17 15:44 Amlodipine Besylate (Norvasc Tab) 5 mg QAM PO 03/19/17 09:00 04/18/17 08:59 03/21/17 07:57 5 MG Aspirin (Ecotrin Tab) 81 mg QAM PO 03/19/17 09:00 04/18/17 08:59 03/21/17 07:58 81 MG Lidocaine/ Prilocaine (Emla 2.5% Crm) 1 ea UD PRN EXT 03/18/17 15:45 04/17/17 15:44 Metoprolol Succinate (Toprol Xl Tab) 50 mg QPM PO 03/18/17 21:00 04/17/17 20:59 03/20/17 20:20 50 MG Multivitamins/ Minerals (Multivitamin W/ Minerals Tab) 1 tab DAILY PO 03/19/17 09:00 04/18/17 08:59 03/21/17 07:56 1 TAB Ranitidine HCl (zANTac TAB) 150 mg HS PO 03/18/17 21:00 04/17/17 20:59 03/20/17 20:20 150 MG Vitamin B Complex/ Vit C/Folic Acid (Nephrocaps) 1 cap DAILY PO 03/19/17 09:00 04/18/17 08:59 03/21/17 07:58 1 CAP Diclofenac Sodium (Voltaren 1% Top Gel) 1 appln QID EXT 03/18/17 17:00 04/17/17 16:59 03/21/17 07:59 1 APPLN Temazepam (Restoril Cap) 7.5 mg HS PRN PO 03/18/17 15:45 04/17/17 15:44 Insulin Aspart (novoLOG ASPART) SLIDING SCALE G... ACHS SC 03/18/17 21:00 04/17/17 20:59 03/21/17 12:23 2 UNITS Ciprofloxacin/ Dextrose 400 mg/ Prmx 200 ml @ 100 mls/hr Q24H IV 03/19/17 16:00 03/29/17 15:59 03/20/17 15:44 100 MLS/HR Glucose (Glucose 40% Gel) 15-30 GRAMS 15 GRAMS... UD PRN PO 03/18/17 18:15 04/17/17 18:14 Glucose (Glucose Chew Tab) 4-8 Tablets 4 Tabl... UD PRN PO 03/18/17 18:15 04/17/17 18:14 Dextrose (Dextrose 50% 50ML Syringe) 25-50ML OF 50% DW IV FOR... UD PRN IV 03/18/17 18:15 04/17/17 18:14 Glucagon (Glucagon Inj) 1 mg UD PRN SQ 03/18/17 18:15 04/17/17 18:14 Heparin Sodium (Porcine) (Heparin Sq 5000 Unit/0.5ml) 5,000 unit Q12 SQ 03/19/17 09:00 04/18/17 08:59 03/21/17 08:02 5,000 UNIT Atorvastatin Calcium (Lipitor Tab) 40 mg HS PO 03/19/17 21:00 04/17/17 20:59 03/20/17 20:19 40 MG Metronidazole 500 mg/Prmx 100 ml @ 100 mls/hr Q8H IV 03/19/17 00:00 03/29/17 00:00 03/21/17 07:58 100 MLS/HR Miscellaneous Information (Consult Glycemic Management Pharmacy) 1 ea UD PRN N/A 03/19/17 17:05 04/18/17 17:04 Objective Vital Signs Date Time Temp Pulse Resp B/P (MAP) Pulse Ox O2 Delivery O2 Flow Rate FiO2 03/21/17 08:00 Room Air 03/21/17 07:44 36.4 75 18 149/76 (100) 96 Room Air 03/21/17 00:00 99 Room Air 03/20/17 23:08 36.9 78 20 136/74 (94) 94 Room Air 03/20/17 20:25 80 140/72 (94) 03/20/17 16:00 Room Air 03/20/17 14:51 36.7 72 16 145/71 (95) 94 Room Air Physical Exam General Appearance: WD/WN, no apparent distress Respiratory/Chest: lungs clear, no respiratory distress Cardiovascular: no murmur Abdomen: normal bowel sounds, soft, no organomegaly, + tenderness (RUQ guarding but no rebound) Laboratory Results Last 24 Hours Test 03/20/17 16:23 03/20/17 20:02 03/21/17 07:29 03/21/17 08:11 Bedside Glucose 155 mg/dl 150 mg/dl 140 mg/dl White Blood Count 8.43 K/uL Red Blood Count 3.66 M/uL Hemoglobin 11.0 g/dL Hematocrit 33.6 % Mean Corpuscular Volume 91.8 fL Mean Corpuscular Hemoglobin 30.1 pg Mean Corpuscular Hemoglobin Concent 32.7 g/dl RDW Standard Deviation 53.0 fL RDW Coefficient of Variation 15.8 % Platelet Count 250 K/uL Mean Platelet Volume 11.4 fL Sodium Level 137 mmol/L Potassium Level mmol/L Chloride Level 110 mmol/L Carbon Dioxide Level 17 mmol/L Anion Gap 10.0 mmol/L Blood Urea Nitrogen 56 mg/dl Creatinine 6.90 mg/dl Est Creatinine Clear Calc Drug Dose 10.0 ml/min Estimated GFR () 8.0 Estimated GFR (Non- 6.9 BUN/Creatinine Ratio 8.2 Random Glucose 152 mg/dl Calcium Level 8.7 mg/dl Test 03/21/17 11:23 03/21/17 12:27 Bedside Glucose 156 mg/dl Assessment and Plan RUQ pain--us of GB negative for pathology, Check HIDA with EF but not done on weekend so ordered for wednesday. Right colon could give pain in RUQ as well as PUD. Plan EGD wednesday also. diarrhea--stool cx pending. Cdiff negative. Plan colonscopy wednesday Possible mesenteric ischemia--abnormal CT 01/2017---vascular stated no intervention needed with CTA no occlusions of major mesenteric vessels Plan EGD/colo tomorrow (wednesday). Procedures and risks explained which include but not limited to medication reaction, bleeding, perforation, aspiration, and missed lesions.
[2017-03-21] MEDS: LAVAGE SOLUTION 4000ML PO SCH (15:53)
[2017-03-21] MEDS: CIPROFLOXACIN / D5W 400 MG in PREMIXED IN D5W 200 ML IV SCH (15:55)
[2017-03-21 16:08] VITALS: BP 151/70; PULSE 69; TEMP 36.3; O2SAT 99
[2017-03-21] MEDS: ATORVASTATIN 20 MG TAB PO SCH (21:06)
[2017-03-21] MEDS: RANITIDINE HCL 150 MG TAB PO SCH (21:07)
[2017-03-21] MEDS: METOPROLOL SUCC 50MG EXT REL TAB PO SCH (21:07)
[2017-03-21 21:14] VITALS: BP 154/75; PULSE 77
[2017-03-21 23:41] VITALS: BP 139/95; PULSE 83; TEMP 36.9; O2SAT 95
[2017-03-22] VITALS: O2SAT 99
--- NOTE | 2017-03-22 01:25 | Hospitalist Progress Note ---
Hospitalist Progress Note Date of Service Mar 21, 2017. Subjective Pt evaluation today including: conversation w/ patient, conversation w/ family Patient with no complaints Objective Vital Signs Date Time Temp Pulse Resp B/P (MAP) Pulse Ox O2 Delivery O2 Flow Rate FiO2 03/20/17 23:08 36.9 78 20 136/74 (94) 94 Room Air 03/20/17 20:25 80 140/72 (94) 03/20/17 16:00 Room Air 03/20/17 14:51 36.7 72 16 145/71 (95) 94 Room Air 03/20/17 08:00 Room Air 03/20/17 07:03 36.8 68 16 148/61 (90) 96 Room Air Physical Exam General Appearance: no apparent distress Eyes: normal inspection ENT: hearing grossly normal Neck: supple, trachea midline Respiratory/Chest: lungs clear Cardiovascular: regular rate, rhythm, no edema, no gallop Abdomen: non tender Extremities: non-tender Neurologic/Psychiatric: alert Laboratory Results Last 24 Hours Test 03/20/17 07:19 03/20/17 07:39 03/20/17 08:43 03/20/17 11:24 Bedside Glucose 60 mg/dl 65 mg/dl 145 mg/dl White Blood Count 7.19 K/uL Red Blood Count 3.70 M/uL Hemoglobin 11.2 g/dL Hematocrit 34.9 % Mean Corpuscular Volume 94.3 fL Mean Corpuscular Hemoglobin 30.3 pg Mean Corpuscular Hemoglobin Concent 32.1 g/dl Platelet Count 232 K/uL Mean Platelet Volume 11.6 fL Neutrophils (%) (Auto) 63.1 % Lymphocytes (%) (Auto) 17.9 % Monocytes (%) (Auto) 12.5 % Eosinophils (%) (Auto) 4.5 % Basophils (%) (Auto) 1.7 % Neutrophils # (Auto) 4.54 K/uL Lymphocytes # (Auto) 1.29 K/uL Monocytes # (Auto) 0.90 K/uL Eosinophils # (Auto) 0.32 K/uL Basophils # (Auto) 0.12 K/uL RDW Standard Deviation 54.8 fL RDW Coefficient of Variation 16.0 % Immature Granulocyte % (Auto) 0.3 % Immature Granulocyte # (Auto) 0.02 K/uL Sodium Level 139 mmol/L Potassium Level 4.8 mmol/L Chloride Level 107 mmol/L Carbon Dioxide Level 26 mmol/L Anion Gap 6.0 mmol/L Blood Urea Nitrogen 41 mg/dl Creatinine 5.90 mg/dl Est Creatinine Clear Calc Drug Dose 11.7 ml/min Estimated GFR () 9.7 Estimated GFR (Non- 8.3 BUN/Creatinine Ratio 6.9 Random Glucose 120 mg/dl Calcium Level 9.0 mg/dl Test 03/20/17 16:23 03/20/17 20:02 Bedside Glucose 155 mg/dl 150 mg/dl Assessment and Plan 1. Abdominal pain and diarrhea. HIDA scan ordered for Wednesday. Patient will have panendoscopy on Wednesday. Based upon the findings of the 3 studies it will be evident with the etiology is the patient's right upper quadrant pain, and whether he would benefit from a cholecystectomy. 2. Mesenteric ischemia, continue medication management for his risk factors. Chronic no need for intervention. Colonoscopy being considered. 3. End-stage renal disease, on dialysis. He has missed his last 2 dialysis treatments. Receiving HD 4. Type 2 diabetes on insulin; his last A1c just a little over a month ago was 7.4. Continue his supplemental insulin as needed; fingersticks and sliding scale. 5. Deep venous thrombosis prophylaxis, heparin subQ. 6. Hyperlipidemia, continue his Lipitor. 7. Hypertension, continue his home medications and follow. Discharge planning: uncertain
[2017-03-22] MEDS: LAVAGE SOLUTION 4000ML PO SCH (05:11)
[2017-03-22 07:23] LABS: BASO ABS # 0.15 K/uL (0-0.2); COMPLETE YES; EOS % 7.1 %; IG% 0.1 %; LYMPH ABS # 1.19 K/uL (1.2-3.4); MEAN CELL VOLUME 91.6 fL (80-100); MEAN CORPUSCULAR HEMOGLOBIN 30.2 pg (25-34); MEAN CORPUSCULAR HGB CONC 32.9 g/dl (32-36); MONO % 14.6 %; NEUT % 60.2 %; PLATELET COUNT 244 K/uL (130-400); RED BLOOD COUNT 3.71 M/uL (4.7-6.1); WHITE BLOOD COUNT 7.42 K/uL (4.8-10.8)
[2017-03-22 07:49] VITALS: BP 157/64; PULSE 71; TEMP 36.3; O2SAT 100
[2017-03-22] MEDS: NEPHROCAPS PO SCH (08:08)
[2017-03-22] MEDS: METRONIDAZOLE / NSS 500 MG in PREMIXED NSS 100 ML IV SCH ×3 (08:08→23:48)
[2017-03-22] MEDS: DICLOFENAC SOD 1% GEL 100 GM TUBE EXT SCH ×4 (08:08→21:00)
[2017-03-22] MEDS: CEROVITE ADV FORMULA TAB PO SCH (08:08)
[2017-03-22] MEDS: ASPIRIN 81 MG ECTAB PO SCH (08:08)
[2017-03-22] MEDS: AMLODIPINE BESYLATE 5 MG TAB PO SCH (08:08)
[2017-03-22 08:10] LABS: BUN/CREATININE RATIO 7.9 (10-20); CALCIUM 9.1 mg/dl (8.5-10.1); CREATININE 7.1 mg/dl (0.60-1.40); POTASSIUM 5.2 mmol/L (3.5-5.1)
[2017-03-22] MEDS: HEPARIN SOD 5000 UNIT/0.5 ML CARP SQ SCH ×2 (08:14→21:06)
[2017-03-22] MEDS: INSULIN ASPART 100 UNITS/ML 3 ML PEN SC SCH ×4 (08:14→20:31)
--- NOTE | 2017-03-22 09:50 | Nephrology Progress Note ---
Nephrology Progress Note Date of Service Mar 22, 2017. Chief Complaint Follow-up for end-stage renal disease on hemodialysis. Subjective Ed was seen and examined in his room this am. BP, electrolyte and volume status stable. Was scheduled for EGD/colonoscopy this am but seems cancelled due to poor prep and pt is very frustrated with that. Review of Systems A complete review of systems was performed. Pertinent positives are noted above. All other systems are negative. Vital Signs Last 8 Hrs Date Time Temp Pulse Resp B/P (MAP) Pulse Ox O2 Delivery O2 Flow Rate FiO2 03/22/17 08:00 Room Air 03/22/17 07:49 36.3 71 16 157/64 (95) 100 Room Air Last Recorded Weight Weight (Kilograms): 100.900 Physical Exam GENERAL: Elderly male, AAA x 3, not in any distress. NECK: Supple, no JVD. RESPIRATORY: Normal breathing efforts, no accessory muscle use, clear to auscultation bilaterally, no wheezes or rales. CARDIOVASCULAR: S1, S2 normal, rate rhythm regular. EXTREMITY: No lower extremity edema NEURO: speech fluent. PSYCHIATRY: Normal mood and judgment Family History No pertinent family history Negative for CKD / ESRD Social History Drug Use: none Marital Status: Housing Status: lives with family Occupation: retired . has Alzheimers and requires home health nursing. Patient is retired. Current smoker Laboratory Results Past 24 Hours 03/22/17 07:10 Red Blood Count 3.71, Mean Corpuscular Volume 91.6, Mean Corpuscular Hemoglobin 30.2, Mean Corpuscular Hemoglobin Concent 32.9, Mean Platelet Volume 11.0, Neutrophils (%) (Auto) 60.2, Lymphocytes (%) (Auto) 16.0, Monocytes (%) (Auto) 14.6, Eosinophils (%) (Auto) 7.1, Basophils (%) (Auto) 2.0, Neutrophils # (Auto ) 4.46, Lymphocytes # (Auto) 1.19, Monocytes # (Auto) 1.08, Eosinophils # (Auto ) 0.53, Basophils # (Auto) 0.15 03/22/17 07:10 Test 03/21/17 11:23 03/21/17 16:27 03/21/17 19:54 03/22/17 07:10 Bedside Glucose 156 mg/dl (70-99) 114 mg/dl (70-99) 182 mg/dl (70-99) White Blood Count 7.42 K/uL (4.8-10.8) Red Blood Count 3.71 M/uL (4.7-6.1) Hemoglobin 11.2 g/dL (14.0-18.0) Hematocrit 34.0 % (42-52) Mean Corpuscular Volume 91.6 fL (80-100) Mean Corpuscular Hemoglobin 30.2 pg (25-34) Mean Corpuscular Hemoglobin Concent 32.9 g/dl (32-36) Platelet Count 244 K/uL (130-400) Mean Platelet Volume 11.0 fL (7.4-10.4) Neutrophils (%) (Auto) 60.2 % Lymphocytes (%) (Auto) 16.0 % Monocytes (%) (Auto) 14.6 % Eosinophils (%) (Auto) 7.1 % Basophils (%) (Auto) 2.0 % Neutrophils # (Auto) 4.46 K/uL (1.4-6.5) Lymphocytes # (Auto) 1.19 K/uL (1.2-3.4) Monocytes # (Auto) 1.08 K/uL (0.11-0.59) Eosinophils # (Auto) 0.53 K/uL (0-0.5) Basophils # (Auto) 0.15 K/uL (0-0.2) RDW Standard Deviation 51.7 fL (36.4-46.3) RDW Coefficient of Variation 15.3 % (11.5-14.5) Immature Granulocyte % (Auto) 0.1 % Immature Granulocyte # (Auto) 0.01 K/uL (0.00-0.02) Anion Gap 10.0 mmol/L (3-11) Est Creatinine Clear Calc Drug Dose 9.9 ml/min Estimated GFR () 7.7 Estimated GFR (Non- 6.7 BUN/Creatinine Ratio 7.9 (10-20) Calcium Level 9.1 mg/dl (8.5-10.1) Test 03/22/17 07:30 Bedside Glucose 107 mg/dl (70-99) Allergies Coded Allergies: No Known Allergies (Unverified , 03/18/17) Medications Current Inpatient Medications Medications (Trade) Dose Ordered Sig/Brennan Route Start Time Stop Time Status Last Admin Dose Admin Ioversol (Optiray 320) 125 ml UD PRN IV 03/18/17 10:30 03/22/17 10:29 Ondansetron HCl (Zofran Inj) 4 mg Q6H PRN IV 03/18/17 15:45 04/17/17 15:44 Amlodipine Besylate (Norvasc Tab) 5 mg QAM PO 03/19/17 09:00 04/18/17 08:59 03/22/17 08:08 5 MG Aspirin (Ecotrin Tab) 81 mg QAM PO 03/19/17 09:00 04/18/17 08:59 03/22/17 08:08 81 MG Lidocaine/ Prilocaine (Emla 2.5% Crm) 1 ea UD PRN EXT 03/18/17 15:45 04/17/17 15:44 Metoprolol Succinate (Toprol Xl Tab) 50 mg QPM PO 03/18/17 21:00 04/17/17 20:59 03/21/17 21:07 50 MG Multivitamins/ Minerals (Multivitamin W/ Minerals Tab) 1 tab DAILY PO 03/19/17 09:00 04/18/17 08:59 03/22/17 08:08 1 TAB Ranitidine HCl (zANTac TAB) 150 mg HS PO 03/18/17 21:00 04/17/17 20:59 03/21/17 21:07 150 MG Vitamin B Complex/ Vit C/Folic Acid (Nephrocaps) 1 cap DAILY PO 03/19/17 09:00 04/18/17 08:59 03/22/17 08:08 1 CAP Diclofenac Sodium (Voltaren 1% Top Gel) 1 appln QID EXT 03/18/17 17:00 04/17/17 16:59 03/22/17 08:08 1 APPLN Temazepam (Restoril Cap) 7.5 mg HS PRN PO 03/18/17 15:45 04/17/17 15:44 Insulin Aspart (novoLOG ASPART) SLIDING SCALE G... ACHS SC 03/18/17 21:00 04/17/17 20:59 03/21/17 12:23 2 UNITS Ciprofloxacin/ Dextrose 400 mg/ Prmx 200 ml @ 100 mls/hr Q24H IV 03/19/17 16:00 03/29/17 15:59 03/21/17 15:55 100 MLS/HR Glucose (Glucose 40% Gel) 15-30 GRAMS 15 GRAMS... UD PRN PO 03/18/17 18:15 04/17/17 18:14 Glucose (Glucose Chew Tab) 4-8 Tablets 4 Tabl... UD PRN PO 03/18/17 18:15 04/17/17 18:14 Dextrose (Dextrose 50% 50ML Syringe) 25-50ML OF 50% DW IV FOR... UD PRN IV 03/18/17 18:15 04/17/17 18:14 Glucagon (Glucagon Inj) 1 mg UD PRN SQ 03/18/17 18:15 04/17/17 18:14 Heparin Sodium (Porcine) (Heparin Sq 5000 Unit/0.5ml) 5,000 unit Q12 SQ 03/19/17 09:00 04/18/17 08:59 03/22/17 08:14 5,000 UNIT Atorvastatin Calcium (Lipitor Tab) 40 mg HS PO 03/19/17 21:00 04/17/17 20:59 03/21/17 21:06 40 MG Metronidazole 500 mg/Prmx 100 ml @ 100 mls/hr Q8H IV 03/19/17 00:00 03/29/17 00:00 03/22/17 08:08 100 MLS/HR Miscellaneous Information (Consult Glycemic Management Pharmacy) 1 ea UD PRN N/A 03/19/17 17:05 04/18/17 17:04 Impression (1) ESRD on hemodialysis (2) Right sided abdominal pain (3) Diarrhea (4) Ischemic colitis (5) Hypertension (6) Diabetes mellitus Mr. Galeano was admitted to the hospital for evaluation of recurrent lower abdominal pain and diarrhea. Abdominal CT shows extensive atherosclerosis but no acute colitis. Surgical consultation has been requested. Stool cultures have been ordered. Patient is afebrile w/ normal WBC #. He does not have clinical signs of acute infection or sepsis at this time. He requires HD this evening due to hyperkalemia and metabolic acidosis Recommendations --currently volume status blood pressure acceptable, K slightly on higher side , 5.2, continue on low K diet and plan for next dialysis tomorrow. --continue on phosphate binder with meals and Nephrocaps --Blood pressure remains acceptable. Continue current medical regimen -- IV Cipro & Flagyl as per primary service and pharmacy picking tech --Continued GI eval for pts ongoing symptoms however, he did report that the abdominal pain much improved and diarrhea resolved.
[2017-03-22] MEDS ORDERED: SINCALIDE INJ 2 MCG in SODIUM CHLORIDE 0.9% 100ML 100 ML IV ONE (11:00)
--- NOTE | 2017-03-22 12:09 | DIAGNOSTIC IMAGING REPORT ---
NUCLEAR MEDICINE HEPATOBILIARY SCAN WITH EJECTION FRACTION ANALYSIS CLINICAL HISTORY: Right upper quadrant abdominal pain COMPARISON STUDY: Abdominal ultrasound dated 03/19/2017 FINDINGS: The patient was injected with 5.5 mCi of technetium 99m Choletec. The gallbladder was first visualized on the 10 minute image. There was normal passage of activity into small bowel. At 1 hour, the patient was administered 2 mcg of sincalide utilizing a 30 minute intravenous infusion. The gallbladder ejection fraction was diminished 17%. IMPRESSION: 1. No evidence of cystic duct obstruction 2. Diminished gallbladder ejection fraction of 17% Electronically signed by: Oh Spain M.D. 03/22/2017 12:08 PM Dictated Date/Time: 03/22/2017 12:05 PM
--- NOTE | 2017-03-22 13:01 | Surgery Progress Note ---
Surgery Progress Note Date of Service Mar 22, 2017. Subjective started colon prep last night and discontinued this AM, no BM yet Objective Vital Signs: Date Time Temp Pulse Resp B/P (MAP) Pulse Ox O2 Delivery O2 Flow Rate FiO2 03/22/17 08:00 Room Air 03/22/17 07:49 36.3 71 16 157/64 (95) 100 Room Air 03/22/17 00:00 99 Room Air 03/21/17 23:41 36.9 83 18 139/95 (110) 95 Room Air 03/21/17 22:11 Room Air 03/21/17 21:14 77 154/75 (101) 03/21/17 16:08 36.3 69 16 151/70 (97) 99 Room Air 03/21/17 15:25 Room Air Abdomen: soft, + tenderness (mild RUQ) Laboratory Results: Results Past 24 Hours Test 03/21/17 16:27 03/21/17 19:54 03/22/17 07:10 03/22/17 07:30 Range/Units Bedside Glucose 114 182 107 70-99 mg/dl White Blood Count 7.42 4.8-10.8 K/uL Red Blood Count 3.71 4.7-6.1 M/uL Hemoglobin 11.2 14.0-18.0 g/dL Hematocrit 34.0 42-52 % Mean Corpuscular Volume 91.6 80-100 fL Mean Corpuscular Hemoglobin 30.2 25-34 pg Mean Corpuscular Hemoglobin Concent 32.9 32-36 g/dl Platelet Count 244 130-400 K/uL Mean Platelet Volume 11.0 7.4-10.4 fL Neutrophils (%) (Auto) 60.2 % Lymphocytes (%) (Auto) 16.0 % Monocytes (%) (Auto) 14.6 % Eosinophils (%) (Auto) 7.1 % Basophils (%) (Auto) 2.0 % Neutrophils # (Auto) 4.46 1.4-6.5 K/uL Lymphocytes # (Auto) 1.19 1.2-3.4 K/uL Monocytes # (Auto) 1.08 0.11-0.59 K/uL Eosinophils # (Auto) 0.53 0-0.5 K/uL Basophils # (Auto) 0.15 0-0.2 K/uL RDW Standard Deviation 51.7 36.4-46.3 fL RDW Coefficient of Variation 15.3 11.5-14.5 % Immature Granulocyte % (Auto) 0.1 % Immature Granulocyte # (Auto) 0.01 0.00-0.02 K/uL Sodium Level 137 136-145 mmol/L Potassium Level 5.2 3.5-5.1 mmol/L Chloride Level 107 98-107 mmol/L Carbon Dioxide Level 20 21-32 mmol/L Anion Gap 10.0 3-11 mmol/L Blood Urea Nitrogen 56 7-18 mg/dl Creatinine 7.10 0.60-1.40 mg/dl Est Creatinine Clear Calc Drug Dose 9.9 ml/min Estimated GFR () 7.7 Estimated GFR (Non- 6.7 BUN/Creatinine Ratio 7.9 10-20 Random Glucose 112 70-99 mg/dl Calcium Level 9.1 8.5-10.1 mg/dl Test 03/22/17 12:19 Range/Units Bedside Glucose 108 70-99 mg/dl Diagnostic Interpretation: [~ rep ct add3]] NUCLEAR MEDICINE HEPATOBILIARY SCAN WITH EJECTION FRACTION ANALYSIS CLINICAL HISTORY: Right upper quadrant abdominal pain COMPARISON STUDY: Abdominal ultrasound dated 03/19/2017 FINDINGS: The patient was injected with 5.5 mCi of technetium 99m Choletec. The gallbladder was first visualized on the 10 minute image. There was normal passage of activity into small bowel. At 1 hour, the patient was administered 2 mcg of sincalide utilizing a 30 minute intravenous infusion. The gallbladder ejection fraction was diminished 17%. IMPRESSION: 1. No evidence of cystic duct obstruction 2. Diminished gallbladder ejection fraction of 17% Electronically signed by: Oh Spain M.D. 03/22/2017 12:08 PM Dictated Date/Time: 03/22/2017 12:05 PM Assessment & Plan ischemic colitis, chronic HIDA without cystic obstruction, U/S also negative awaiting endoscopy seen with Dr. Ambrose pt seen. as above. doubt biliary dyskinesia is his main issue. will need to have colonoscopy/biopsy will follow along
--- NOTE | 2017-03-22 13:59 | Endo History and Physical ---
History & Physical Date of Service: Mar 22, 2017. Chief Complaint: RUQ pain Referring Physician: Dr Cameron History of Present Illness For EGD Past Medical History Diabetes, High Cholesterol, Hypertension, Thyroid Disease, Kidney Disease Past Surgical History Hx Cardiac Surgery: Yes Hx Abdominal Surgery: No Hx Post-Op Nausea and Vomiting: No Hx Cancer Surgery: No Hx Thoracic Surgery: No Hx Orthopedic: Yes (KNEE) Hx Urinary Tract Surgery: No Social History Smoking Status: Current Every Day Smoker Hx Substance Use: No Hx Alcohol Use: No Allergies Coded Allergies: No Known Allergies (Unverified , 03/18/17) Current Medications Reported Home Medications Medications Dose Route/Sig Max Daily Dose Days Date Category Dose Instructions Zantac (Ranitidine HCl) 150 Mg Tab 150 Mg PO HS 03/18/17 Reported Nephrocaps (Vitamin B Complex/Vit C/Folic Acid) Cap 1 Cap PO DAILY 90 03/18/17 Reported ON DIALYSIS DAYS [id number]-Rmia 2.5-2.5 % (Lidocaine-Prilocaine) 1 Cre Cre 1 Appln TOP UD 03/18/17 Reported APPLY TO AVF 20 MINUTES PRIOR TO HD Lantus Solostar (Insulin Glargine) 100 Unit/Ml Inj 30-35 Units SQ HS 01/23/17 Reported Sodium Bicarbonate (Sodium Bicarbonate (Antacid)) 650 Mg Tab 1 Tab PO BIDM 02/07/16 Reported Norvasc (Amlodipine Besylate) 5 Mg Tab 5 Mg PO QAM 02/07/16 Reported Ocuvite Preservision (Multivitamins/Minerals) 1 Tab Tab 2 Tab PO DAILY 10/30/14 Reported Atorvastatin Calcium (Atorvastatin) 20 Mg Tab 20 Mg PO HS 10/30/14 Reported Aspir-81 (Aspirin) 81 Mg Tab 81 Mg PO QAM 10/30/14 Reported Toprol Xl (Metoprolol Succinate) 50 Mg Tabcr 50 Mg PO QPM 10/30/14 Reported Novolog Flexpen (Insulin Aspart) 100 Units/Ml Inj 22 Units SQ QPM 10/30/14 Reported EVENING MEAL Novolog Flexpen (Insulin Aspart) 100 Units/Ml Inj 19 Units SQ LUNCH 10/30/14 Reported Novolog Flexpen (Insulin Aspart) 100 Units/Ml Inj 18 Units SC QAM 10/30/14 Reported WITH BREAKFAST Vital Signs Weight (Kilograms): 100.900 Height (Feet): 5 Height (Inches): 9.00 Date Time Temp Pulse Resp B/P (MAP) Pulse Ox O2 Delivery O2 Flow Rate FiO2 03/22/17 13:42 36.5 81 20 152/80 (104) 99 Room Air 03/22/17 08:00 Room Air 03/22/17 07:49 36.3 71 16 157/64 (95) 100 Room Air 03/22/17 00:00 99 Room Air 03/21/17 23:41 36.9 83 18 139/95 (110) 95 Room Air 03/21/17 22:11 Room Air 03/21/17 21:14 77 154/75 (101) 03/21/17 16:08 36.3 69 16 151/70 (97) 99 Room Air 03/21/17 15:25 Room Air Physical Exam General Appearance: + obese Respiratory/Chest: Respiratory effort: no dyspnea Auscultation: no rales/crackles, no rhonchi, decreased breath sounds Cardiovascular: Heart Auscultation: RRR Abdomen: Inspection & Palpation: RUQ tenderness Assessment and Plan RUQ pain for EGD
[2017-03-22] MEDS ORDERED: PROPOFOL IV EMULSION 10 MG/ML 20 ML VIAL IV ONE (14:07)
[2017-03-22] MEDS ORDERED: LIDOCAINE HCL 2% 2 ML VIAL (20MG/ML) ONE (14:07)
--- NOTE | 2017-03-22 14:22 | Discharge Instructions ---
Endoscopy Patient Instructions Date / Procedure(s) Performed Mar 22, 2017. EGD Allergy Information Coded Allergies: No Known Allergies (Unverified , 03/18/17) Discharge Date / Findings Mar 22, 2017. Dieulafoy lesion Medication Instructions Restart Stopped Medication(s): resume meds Current Inpatient Medications Medications (Trade) Dose Ordered Sig/Brennan Route Start Time Stop Time Status Last Admin Dose Admin Ondansetron HCl (Zofran Inj) 4 mg Q6H PRN IV 03/18/17 15:45 04/17/17 15:44 Amlodipine Besylate (Norvasc Tab) 5 mg QAM PO 03/19/17 09:00 04/18/17 08:59 03/22/17 08:08 5 MG Aspirin (Ecotrin Tab) 81 mg QAM PO 03/19/17 09:00 04/18/17 08:59 03/22/17 08:08 81 MG Lidocaine/ Prilocaine (Emla 2.5% Crm) 1 ea UD PRN EXT 03/18/17 15:45 04/17/17 15:44 Metoprolol Succinate (Toprol Xl Tab) 50 mg QPM PO 03/18/17 21:00 04/17/17 20:59 03/21/17 21:07 50 MG Multivitamins/ Minerals (Multivitamin W/ Minerals Tab) 1 tab DAILY PO 03/19/17 09:00 04/18/17 08:59 03/22/17 08:08 1 TAB Ranitidine HCl (zANTac TAB) 150 mg HS PO 03/18/17 21:00 04/17/17 20:59 03/21/17 21:07 150 MG Vitamin B Complex/ Vit C/Folic Acid (Nephrocaps) 1 cap DAILY PO 03/19/17 09:00 04/18/17 08:59 03/22/17 08:08 1 CAP Diclofenac Sodium (Voltaren 1% Top Gel) 1 appln QID EXT 03/18/17 17:00 04/17/17 16:59 03/22/17 08:08 1 APPLN Temazepam (Restoril Cap) 7.5 mg HS PRN PO 03/18/17 15:45 04/17/17 15:44 Insulin Aspart (novoLOG ASPART) SLIDING SCALE G... ACHS SC 03/18/17 21:00 9/23/17 20:59 03/21/17 12:23 2 UNITS Ciprofloxacin/ Dextrose 400 mg/ Prmx 200 ml @ 100 mls/hr Q24H IV 03/19/17 16:00 03/29/17 15:59 03/21/17 15:55 100 MLS/HR Glucose (Glucose 40% Gel) 15-30 GRAMS 15 GRAMS... UD PRN PO 03/18/17 18:15 04/17/17 18:14 Glucose (Glucose Chew Tab) 4-8 Tablets 4 Tabl... UD PRN PO 03/18/17 18:15 04/17/17 18:14 Dextrose (Dextrose 50% 50ML Syringe) 25-50ML OF 50% DW IV FOR... UD PRN IV 03/18/17 18:15 04/17/17 18:14 Glucagon (Glucagon Inj) 1 mg UD PRN SQ 03/18/17 18:15 04/17/17 18:14 Heparin Sodium (Porcine) (Heparin Sq 5000 Unit/0.5ml) 5,000 unit Q12 SQ 03/19/17 09:00 04/18/17 08:59 03/22/17 08:14 5,000 UNIT Atorvastatin Calcium (Lipitor Tab) 40 mg HS PO 03/19/17 21:00 04/17/17 20:59 03/21/17 21:06 40 MG Metronidazole 500 mg/Prmx 100 ml @ 100 mls/hr Q8H IV 03/19/17 00:00 03/29/17 00:00 03/22/17 08:08 100 MLS/HR Miscellaneous Information (Consult Glycemic Management Pharmacy) 1 ea UD PRN N/A 03/19/17 17:05 04/18/17 17:04 Provider Instructions Activity Restrictions - No exercising or heavy lifting for 24 hours. - Do not drink alcohol the day of the procedure. - Do not drive a car or operate machinery until the day after the procedure. - Do not make any important decisions or sign important papers in 24 hours after the procedure. Following Day: - Return to full activity which may include returning to work/school. Diet Start your diet with liquids and light foods (jello, soup, juice, toast). Then eat your usual diet if not nauseated. Treatment For Common After Affects For mild abdominal pain, bloating, or excessive gas: - Rest - Eat lightly - Lie on right side Follow-Up Information Follow-up with as scheduled Anesthesia Information What You Should Know You have had a procedure that required some medicine to reduce anxiety and discomfort. This treatment is called moderate sedation. After receiving the treatment, you may be sleepy, but you will be able to breathe on your own. The effects of the treatment may last for several hours. Follow these instructions along with Activity/Diet recommendations noted above: * Do NOT do anything where dizziness or clumsiness would be dangerous. * Rest quietly at home today, then you can be up and about tomorrow. * Have a responsible person stay with you the rest of today. * You may have had an I.V. today. If so, you may take the dressing off later today. Recommendations Call your doctor if: * Trouble breathing * Continuous vomiting for more than 24 hours * Temperature above 101 degrees * Severe abdominal pain or bloating * Pain not relieved by pain medicine ordered * There is increased drainage or redness from any incision * A large amount of rectal bleeding greater than 2-3 tablespoons. (If you had a polyp/s removed or have hemorrhoids, a small amount of blood - from the rectum is to be expected.) * You have any unanswered questions or concerns. IN THE EVENT OF A SERIOUS EMERGENCY, GO TO THE NEAREST EMERGENCY ROOM Your discharge instructions were prepared by provider Phillip Lorenzana. Patient Instructions Signature Page Elgin Galeano Patient (or Guardian) Signature/Date: I have read and understand the instructions given to me by my caregivers. Caregiver/RN/Doctor Signature/Date: The above-named patient and/or guardian has received patient instructions on this date. + Original Patient Signature Page (only) stays with chart. Please make copy for patient.
--- NOTE | 2017-03-22 14:26 | GI REPORT ---
Procedure Date: 03/22/2017 2:05 PM Procedure: Upper GI endoscopy Indications: Abdominal pain in the right upper quadrant Medicines: Propofol total dose 60 mg IV, Lidocaine 80 mg IV Complications: No immediate complications. Estimated Blood Loss: Estimated blood loss was minimal. Procedure: Pre-Anesthesia Assessment: - Prior to the procedure, a History and Physical was performed, and patient medications, allergies and sensitivities were reviewed. The patient's tolerance of previous anesthesia was reviewed. - The risks and benefits of the procedure and the sedation options and risks were discussed with the patient. All questions were answered and informed consent was obtained. After obtaining informed consent, the endoscope was passed under direct vision. Throughout the procedure, the patient's blood pressure, pulse, and oxygen saturations were monitored continuously. The scope was introduced through the mouth, and advanced to the second part of duodenum. The upper GI endoscopy was accomplished without difficulty. The patient tolerated the procedure well. Findings: The examined esophagus was normal. Hematin (altered blood/naareh-myrzuf-wcom material) was found in the gastric body. A Dieulafoy lesion with oozing bleeding and stigmata of recent bleeding was found in the gastric body. For hemostasis, one hemostatic clip was successfully placed (MR conditional). There was no bleeding at the end of the procedure. Estimated blood loss was minimal. The examined duodenum was normal. Impression: - Normal esophagus. - Hematin (altered blood/yidrom-ttdfru-rpdu material) in the gastric body. - Dieulafoy lesion of stomach. - Normal examined duodenum. - No specimens collected. Recommendation: - Return patient to hospital [facility] for ongoing care. Phillip Lorenzana M.D. Phillip Lorenzana MD 03/22/2017 2:26:02 PM This report has been signed electronically. Note Initiated On: 03/22/2017 2:05 PM I attest to the content of the Intraoperative Record and orders documented therein, exceptions below
--- NOTE | 2017-03-22 14:42 | Anesthesiology Progress Note ---
Anesthesia Post Op Note Date & Time Mar 22, 2017 at 14:42 Vital Signs Pain Intensity: 0.0 Vital Signs Past 12 Hours Date Time Temp Pulse Resp B/P (MAP) Pulse Ox O2 Delivery O2 Flow Rate FiO2 03/22/17 14:27 70 16 115/62 (79) 100 Room Air 03/22/17 13:42 36.5 81 20 152/80 (104) 99 Room Air 03/22/17 08:00 Room Air 03/22/17 07:49 36.3 71 16 157/64 (95) 100 Room Air Notes Mental Status: alert / awake / arousable, participated in evaluation Pt Amnestic to Procedure: Yes Nausea / Vomiting: adequately controlled Pain: adequately controlled Airway Patency, RR, SpO2: stable & adequate BP & HR: stable & adequate Hydration State: stable & adequate Anesthetic Complications: no major complications apparent
--- NOTE | 2017-03-22 15:01 | PROGRESS NOTE ---
DATE: 03/22/2017 HISTORY OF PRESENT ILLNESS: The patient was prepped today for an EGD and colonoscopy. Unfortunately his bowel prep was not working and he did not clean out his colon but he did come down for an EGD because of his right upper quadrant pain. He was found to have a Dieulafoy lesion in the upper stomach, which was actively oozing and clipped with cessation of bleeding. There was some old blood in the stomach which was lavaged clear. No other lesions were found. Of note is that his biliary scan with ejection fraction showed no cystic duct obstruction and there are no stones but his ejection fraction was significantly diminished to 17%, indicating gallbladder dysfunction. Given his pain symptoms, normal lactic acid and no lesion in the upper endoscopy that would cause significant abdominal pain, I think it is most likely that his right upper quadrant pain is from gallbladder dysfunction and I would consider having patient undergo cholecystectomy. We will continue to follow the patient.
[2017-03-22 16:00] VITALS: O2SAT 97
[2017-03-22] MEDS: CIPROFLOXACIN / D5W 400 MG in PREMIXED IN D5W 200 ML IV SCH (16:14)
--- NOTE | 2017-03-22 19:23 | Progress Note ---
Subjective Date of Service: Mar 22, 2017. Subjective Pt evaluation today including: conversation w/ patient, conversation w/ family , physical exam, chart review, lab review, review of studies, review of inpatient medication list Problem List Medical Problems: (1) Right sided abdominal pain Status: Acute (2) Right sided abdominal pain Status: Acute Review of Systems Constitutional: No see HPI, No fever, No chills, No sweats, No weight loss, No weakness, No fatigue, No problem reported Eyes: No see HPI, No worsening of vision, No eye pain, No redness, No discharge , No diplopia, No problem reported ENT: No see HPI, No hearing loss, No unusual epistaxis, No nasal symptoms, No sore throat, No tinnitus, No dental problems, No trouble swallowing, No problem reported Respiratory: No see HPI, No cough, No sputum, No wheezing, No shortness of breath, No dyspnea on exertion, No dyspnea at rest, No hemoptysis, No problem reported Cardiac: No see HPI, No chest pain, No orthopnea, No PND, No edema, No claudication, No palpitations, No problem reported Abdomen: + pain, + diarrhea, No see HPI, No nausea, No vomiting, No constipation, No GI bleeding, No problem reported Musculoskeletal: No see HPI, No joint pain, No muscle pain, No swelling, No calf pain, No problem reported Neurologic: No see HPI, No memory loss, No paralysis, No weakness, No numbness/ tingling, No vertigo, No balance problems, No problem reported Psychiatric: No see HPI, No depression symptoms, No anhedonism, No anxiety, No insomnia, No substance abuse, No problem reported Heme: No see HPI, No abnormal bleeding/bruising, No clotting problems, No swollen lymph nodes, No night sweats, No problem reported Endo: No see HPI, No fatigue, No excessive thirst, No excessive urination, No problem reported Skin: No see HPI, No rash, No itch, No new/changing skin lesions, No color change, No bleeding, No problem reported Objective Vital Signs Date Time Temp Pulse Resp B/P (MAP) Pulse Ox O2 Delivery O2 Flow Rate FiO2 03/22/17 15:00 74 16 114/78 (90) 97 Room Air 03/22/17 14:45 73 18 112/90 (97) 99 Room Air 03/22/17 14:27 70 16 115/62 (79) 100 Room Air 03/22/17 13:42 36.5 81 20 152/80 (104) 99 Room Air 03/22/17 08:00 Room Air 03/22/17 07:49 36.3 71 16 157/64 (95) 100 Room Air 03/22/17 00:00 99 Room Air 03/21/17 23:41 36.9 83 18 139/95 (110) 95 Room Air 03/21/17 22:11 Room Air 03/21/17 21:14 77 154/75 (101) Physical Exam General Appearance: WD/WN, no apparent distress Eyes: normal inspection, EOMI ENT: normal ENT inspection, hearing grossly normal Neck: supple Respiratory/Chest: chest non-tender, lungs clear, normal breath sounds, no respiratory distress, no accessory muscle use Cardiovascular: regular rate, rhythm, no edema, no gallop, no JVD, no murmur Abdomen: normal bowel sounds, soft, + tenderness Extremities: normal range of motion, non-tender, normal inspection 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, no motor/sensory deficits, alert, normal mood/affect, oriented x 3 Skin: normal color, warm/dry, no rash Laboratory Results Last 24 Hours Test 03/21/17 19:54 03/22/17 07:10 03/22/17 07:30 03/22/17 12:19 Bedside Glucose 182 mg/dl 107 mg/dl 108 mg/dl White Blood Count 7.42 K/uL Red Blood Count 3.71 M/uL Hemoglobin 11.2 g/dL Hematocrit 34.0 % Mean Corpuscular Volume 91.6 fL Mean Corpuscular Hemoglobin 30.2 pg Mean Corpuscular Hemoglobin Concent 32.9 g/dl Platelet Count 244 K/uL Mean Platelet Volume 11.0 fL Neutrophils (%) (Auto) 60.2 % Lymphocytes (%) (Auto) 16.0 % Monocytes (%) (Auto) 14.6 % Eosinophils (%) (Auto) 7.1 % Basophils (%) (Auto) 2.0 % Neutrophils # (Auto) 4.46 K/uL Lymphocytes # (Auto) 1.19 K/uL Monocytes # (Auto) 1.08 K/uL Eosinophils # (Auto) 0.53 K/uL Basophils # (Auto) 0.15 K/uL RDW Standard Deviation 51.7 fL RDW Coefficient of Variation 15.3 % Immature Granulocyte % (Auto) 0.1 % Immature Granulocyte # (Auto) 0.01 K/uL Sodium Level 137 mmol/L Potassium Level 5.2 mmol/L Chloride Level 107 mmol/L Carbon Dioxide Level 20 mmol/L Anion Gap 10.0 mmol/L Blood Urea Nitrogen 56 mg/dl Creatinine 7.10 mg/dl Est Creatinine Clear Calc Drug Dose 9.9 ml/min Estimated GFR () 7.7 Estimated GFR (Non- 6.7 BUN/Creatinine Ratio 7.9 Random Glucose 112 mg/dl Calcium Level 9.1 mg/dl Test 03/22/17 16:52 Bedside Glucose 126 mg/dl Assessment and Plan Abdominal pain and postprandial diarrhea DD includes chronic ischemic colitis, bacterial overgrowth, biliary dyskinesia ( doubted by surgery ), ciliac, lactose intolerance , Crohn's, irritable bowel syndrome-diarrhea, maldigestion due to bile acid malabsorption or pancreatic exocrine insufficiency HIDA without cystic obstruction but EF was 17% U/S showed no cholelithiasis CT angiography showed; 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 S/P EGD showed Dieulafoy lesion in the upper stomach, which was actively oozing and clipped with cessation of bleeding RUQ pain possibly secondary to gall bladder dyskinesia End-stage renal disease, continue dialysis Type 2 diabetes on insulin; Continue SSI Deep venous thrombosis prophylaxis, heparin subQ. Hyperlipidemia, continue his Lipitor. Hypertension, continue his home medications and follow. Discharge planning: uncertain
[2017-03-22] MEDS: METOPROLOL SUCC 50MG EXT REL TAB PO SCH (21:00)
[2017-03-22] MEDS: RANITIDINE HCL 150 MG TAB PO SCH (21:00)
[2017-03-22] MEDS: ATORVASTATIN 20 MG TAB PO SCH (21:01)
[2017-03-22 23:34] VITALS: BP 171/72; PULSE 84; TEMP 36.9; O2SAT 98
[2017-03-23] VITALS (21 sets, daily range): BP systolic 80–156; BP diastolic 43–80; PULSE 59–87; TEMP 36.4–36.7; O2SAT 97
[2017-03-23] MEDS: METRONIDAZOLE / NSS 500 MG in PREMIXED NSS 100 ML IV SCH ×3 (07:57→23:38)
[2017-03-23] MEDS: INSULIN ASPART 100 UNITS/ML 3 ML PEN SC SCH ×4 (07:57→21:00)
[2017-03-23] MEDS: CEROVITE ADV FORMULA TAB PO SCH (07:58)
[2017-03-23] MEDS: AMLODIPINE BESYLATE 5 MG TAB PO SCH (07:58)
[2017-03-23] MEDS: DICLOFENAC SOD 1% GEL 100 GM TUBE EXT SCH ×4 (07:58→21:42)
[2017-03-23] MEDS: ASPIRIN 81 MG ECTAB PO SCH (07:58)
[2017-03-23] MEDS: NEPHROCAPS PO SCH (07:58)
[2017-03-23] MEDS: HEPARIN SOD 5000 UNIT/0.5 ML CARP SQ SCH ×2 (08:08→21:58)
[2017-03-23 08:26] LABS: BUN/CREATININE RATIO 8.4 (10-20); CALCIUM 9.1 mg/dl (8.5-10.1); CREATININE 7.9 mg/dl (0.60-1.40); POTASSIUM 5.4 mmol/L (3.5-5.1)
--- NOTE | 2017-03-23 10:22 | Nephrology Progress Note ---
Nephrology Progress Note Date of Service Mar 23, 2017. Chief Complaint Follow-up for end-stage renal disease on hemodialysis. Subjective Ed was seen and examined in his room this morning. He just had breakfast and he feels like he is having some stomach upset with the at. Had EGD yesterday showing evidence upper GI bleeding. Hemoglobin has been stable. Currently blood pressure volume status acceptable. Due for dialysis today. Review of Systems A complete review of systems was performed. Pertinent positives are noted above. All other systems are negative. Vital Signs Last 8 Hrs Date Time Temp Pulse Resp B/P (MAP) Pulse Ox O2 Delivery O2 Flow Rate FiO2 03/23/17 08:00 Room Air 03/23/17 07:29 36.7 80 20 155/65 (95) 97 Room Air Last Recorded Weight Weight (Kilograms): 100.600 Physical Exam GENERAL: Elderly male, AAA x 3, not in any distress. NECK: Supple, no JVD. RESPIRATORY: Normal breathing efforts, no accessory muscle use, clear to auscultation bilaterally, no wheezes or rales. CARDIOVASCULAR: S1, S2 normal, rate rhythm regular. EXTREMITY: No lower extremity edema NEURO: speech fluent. PSYCHIATRY: Normal mood and judgment Family History No pertinent family history Negative for CKD / ESRD Social History Drug Use: none Marital Status: Housing Status: lives with family Occupation: retired . has Alzheimers and requires home health nursing. Patient is retired. Current smoker Laboratory Results Past 24 Hours 03/23/17 07:22 Test 03/22/17 12:19 03/22/17 16:52 03/22/17 19:50 03/23/17 07:22 Bedside Glucose 108 mg/dl (70-99) 126 mg/dl (70-99) 147 mg/dl (70-99) Anion Gap 11.0 mmol/L (3-11) Est Creatinine Clear Calc Drug Dose 8.9 ml/min Estimated GFR () 6.8 Estimated GFR (Non- 5.9 BUN/Creatinine Ratio 8.4 (10-20) Calcium Level 9.1 mg/dl (8.5-10.1) Test 03/23/17 07:34 Bedside Glucose 98 mg/dl (70-99) Allergies Coded Allergies: No Known Allergies (Unverified , 03/18/17) Medications Current Inpatient Medications Medications (Trade) Dose Ordered Sig/Brennan Route Start Time Stop Time Status Last Admin Dose Admin Ondansetron HCl (Zofran Inj) 4 mg Q6H PRN IV 03/18/17 15:45 04/17/17 15:44 Amlodipine Besylate (Norvasc Tab) 5 mg QAM PO 03/19/17 09:00 04/18/17 08:59 03/23/17 07:58 5 MG Aspirin (Ecotrin Tab) 81 mg QAM PO 03/19/17 09:00 04/18/17 08:59 03/23/17 07:58 81 MG Lidocaine/ Prilocaine (Emla 2.5% Crm) 1 ea UD PRN EXT 03/18/17 15:45 04/17/17 15:44 Metoprolol Succinate (Toprol Xl Tab) 50 mg QPM PO 03/18/17 21:00 04/17/17 20:59 03/22/17 21:00 50 MG Multivitamins/ Minerals (Multivitamin W/ Minerals Tab) 1 tab DAILY PO 03/19/17 09:00 04/18/17 08:59 03/23/17 07:58 1 TAB Ranitidine HCl (zANTac TAB) 150 mg HS PO 03/18/17 21:00 04/17/17 20:59 03/22/17 21:00 150 MG Vitamin B Complex/ Vit C/Folic Acid (Nephrocaps) 1 cap DAILY PO 03/19/17 09:00 04/18/17 08:59 03/23/17 07:58 1 CAP Diclofenac Sodium (Voltaren 1% Top Gel) 1 appln QID EXT 03/18/17 17:00 04/17/17 16:59 03/23/17 07:58 1 APPLN Temazepam (Restoril Cap) 7.5 mg HS PRN PO 03/18/17 15:45 04/17/17 15:44 Insulin Aspart (novoLOG ASPART) SLIDING SCALE G... ACHS SC 03/18/17 21:00 04/17/17 20:59 03/22/17 17:09 1 UNITS Ciprofloxacin/ Dextrose 400 mg/ Prmx 200 ml @ 100 mls/hr Q24H IV 03/19/17 16:00 03/29/17 15:59 03/22/17 16:14 100 MLS/HR Glucose (Glucose 40% Gel) 15-30 GRAMS 15 GRAMS... UD PRN PO 03/18/17 18:15 04/17/17 18:14 Glucose (Glucose Chew Tab) 4-8 Tablets 4 Tabl... UD PRN PO 03/18/17 18:15 04/17/17 18:14 Dextrose (Dextrose 50% 50ML Syringe) 25-50ML OF 50% DW IV FOR... UD PRN IV 03/18/17 18:15 04/17/17 18:14 Glucagon (Glucagon Inj) 1 mg UD PRN SQ 03/18/17 18:15 04/17/17 18:14 Heparin Sodium (Porcine) (Heparin Sq 5000 Unit/0.5ml) 5,000 unit Q12 SQ 03/19/17 09:00 04/18/17 08:59 03/23/17 08:08 5,000 UNIT Atorvastatin Calcium (Lipitor Tab) 40 mg HS PO 03/19/17 21:00 04/17/17 20:59 03/22/17 21:01 40 MG Metronidazole 500 mg/Prmx 100 ml @ 100 mls/hr Q8H IV 03/19/17 00:00 03/29/17 00:00 03/23/17 07:57 100 MLS/HR Miscellaneous Information (Consult Glycemic Management Pharmacy) 1 ea UD PRN N/A 03/19/17 17:05 04/18/17 17:04 Impression (1) ESRD on hemodialysis (2) Right sided abdominal pain (3) Diarrhea (4) Ischemic colitis (5) Hypertension (6) Diabetes mellitus Mr. Galeano was admitted to the hospital for evaluation of recurrent lower abdominal pain and diarrhea. Abdominal CT shows extensive atherosclerosis but no acute colitis. Surgical consultation has been requested. Stool cultures have been ordered. Patient is afebrile w/ normal WBC #. He does not have clinical signs of acute infection or sepsis at this time. He requires HD this evening due to hyperkalemia and metabolic acidosis Recommendations -- dialysis today with 2 K bath, for 4 hours, aim for UF 2 liters. --continue on phosphate binder with meals and Nephrocaps --avoid IV fluid --Blood pressure remains acceptable. Continue current medical regimen --suggest discontinuing H2 valente and starting on the Protonix
--- NOTE | 2017-03-23 11:30 | Surgery Progress Note ---
Surgery Progress Note Date of Service Mar 23, 2017. Subjective 3 BM last night between 6-midnight, first was after supper didn't make it to bathroom and was dark while second two watery, mild RUQ pain Objective Vital Signs: Date Time Temp Pulse Resp B/P (MAP) Pulse Ox O2 Delivery O2 Flow Rate FiO2 03/23/17 10:30 68 150/68 03/23/17 10:15 64 146/80 03/23/17 10:02 67 143/71 03/23/17 09:58 36.5 70 141/74 (96) 03/23/17 08:00 Room Air 03/23/17 07:29 36.7 80 20 155/65 (95) 97 Room Air 03/23/17 00:00 Room Air 03/22/17 23:34 36.9 84 18 171/72 (105) 98 Room Air 03/22/17 16:00 97 Room Air 03/22/17 15:00 74 16 114/78 (90) 97 Room Air 03/22/17 14:45 73 18 112/90 (97) 99 Room Air 03/22/17 14:27 70 16 115/62 (79) 100 Room Air 03/22/17 13:42 36.5 81 20 152/80 (104) 99 Room Air Abdomen: soft, + tenderness (mild RUQ) Laboratory Results: Results Past 24 Hours Test 03/22/17 12:19 03/22/17 16:52 03/22/17 19:50 03/23/17 07:22 Range/Units Bedside Glucose 108 126 147 70-99 mg/dl Sodium Level 141 136-145 mmol/L Potassium Level 5.4 3.5-5.1 mmol/L Chloride Level 111 98-107 mmol/L Carbon Dioxide Level 19 21-32 mmol/L Anion Gap 11.0 3-11 mmol/L Blood Urea Nitrogen 67 7-18 mg/dl Creatinine 7.90 0.60-1.40 mg/dl Est Creatinine Clear Calc Drug Dose 8.9 ml/min Estimated GFR () 6.8 Estimated GFR (Non- 5.9 BUN/Creatinine Ratio 8.4 10-20 Random Glucose 111 70-99 mg/dl Calcium Level 9.1 8.5-10.1 mg/dl Test 03/23/17 07:34 Range/Units Bedside Glucose 98 70-99 mg/dl Assessment & Plan ischemic colitis, chronic biliary dyskinesia There was colonic thickening (ascending & hepatic flexure) on CT 01/23 and recent HIDA showed EF 17%. It is uncertain that cholecystectomy will alleviate his symptoms. Would prefer he have colonoscopy prior to cholecystectomy. Either of these can be done as an outpatient but he does not feel he can return home with his current symptoms/diarrhea. 03/23/17 his pain is currently right mid to RLQ...doubt gallbladder is etiology b/c of loose bm's and recent abnormal CT of colon, suspect colitis as etiology rec colonoscopy. currently no plans to proceed with lap olya. no evidence of cholecystitis and he is having pain not nausea...lap olya likely would not improve his symptoms.
--- NOTE | 2017-03-23 16:29 | Gastroenterology Progress Note ---
Progress Note Date of Service: Mar 23, 2017 Subjective Pt evaluation today including: conversation w/ patient, conversation w/ family (daughter and son in law), physical exam, chart review, lab review, review of studies, review of inpatient medication list CC f/U RUQ pain HPI Pt with ongoing RUQ pain. Did have some diarrhea yesterday brown in color. Review of Systems Respiratory: No shortness of breath Cardiac: + chest pain Medications Current Inpatient Medications Medications (Trade) Dose Ordered Sig/Brennan Route Start Time Stop Time Status Last Admin Dose Admin Ondansetron HCl (Zofran Inj) 4 mg Q6H PRN IV 03/18/17 15:45 04/17/17 15:44 Amlodipine Besylate (Norvasc Tab) 5 mg QAM PO 03/19/17 09:00 04/18/17 08:59 03/23/17 07:58 5 MG Aspirin (Ecotrin Tab) 81 mg QAM PO 03/19/17 09:00 04/18/17 08:59 03/23/17 07:58 81 MG Lidocaine/ Prilocaine (Emla 2.5% Crm) 1 ea UD PRN EXT 03/18/17 15:45 04/17/17 15:44 Metoprolol Succinate (Toprol Xl Tab) 50 mg QPM PO 03/18/17 21:00 04/17/17 20:59 03/22/17 21:00 50 MG Multivitamins/ Minerals (Multivitamin W/ Minerals Tab) 1 tab DAILY PO 03/19/17 09:00 04/18/17 08:59 03/23/17 07:58 1 TAB Ranitidine HCl (zANTac TAB) 150 mg HS PO 03/18/17 21:00 04/17/17 20:59 03/22/17 21:00 150 MG Vitamin B Complex/ Vit C/Folic Acid (Nephrocaps) 1 cap DAILY PO 03/19/17 09:00 04/18/17 08:59 03/23/17 07:58 1 CAP Diclofenac Sodium (Voltaren 1% Top Gel) 1 appln QID EXT 03/18/17 17:00 04/17/17 16:59 03/23/17 07:58 1 APPLN Temazepam (Restoril Cap) 7.5 mg HS PRN PO 03/18/17 15:45 04/17/17 15:44 Insulin Aspart (novoLOG ASPART) SLIDING SCALE G... ACHS SC 03/18/17 21:00 04/17/17 20:59 03/22/17 17:09 1 UNITS Ciprofloxacin/ Dextrose 400 mg/ Prmx 200 ml @ 100 mls/hr Q24H IV 03/19/17 16:00 03/29/17 15:59 03/22/17 16:14 100 MLS/HR Glucose (Glucose 40% Gel) 15-30 GRAMS 15 GRAMS... UD PRN PO 03/18/17 18:15 04/17/17 18:14 Glucose (Glucose Chew Tab) 4-8 Tablets 4 Tabl... UD PRN PO 03/18/17 18:15 04/17/17 18:14 Dextrose (Dextrose 50% 50ML Syringe) 25-50ML OF 50% DW IV FOR... UD PRN IV 03/18/17 18:15 04/17/17 18:14 Glucagon (Glucagon Inj) 1 mg UD PRN SQ 03/18/17 18:15 04/17/17 18:14 Heparin Sodium (Porcine) (Heparin Sq 5000 Unit/0.5ml) 5,000 unit Q12 SQ 03/19/17 09:00 04/18/17 08:59 03/23/17 08:08 5,000 UNIT Atorvastatin Calcium (Lipitor Tab) 40 mg HS PO 03/19/17 21:00 04/17/17 20:59 03/22/17 21:01 40 MG Metronidazole 500 mg/Prmx 100 ml @ 100 mls/hr Q8H IV 03/19/17 00:00 03/29/17 00:00 03/23/17 07:57 100 MLS/HR Miscellaneous Information (Consult Glycemic Management Pharmacy) 1 ea UD PRN N/A 03/19/17 17:05 04/18/17 17:04 Objective Vital Signs Date Time Temp Pulse Resp B/P (MAP) Pulse Ox O2 Delivery O2 Flow Rate FiO2 03/23/17 14:44 36.4 79 121/61 (81) 03/23/17 13:45 77 119/64 03/23/17 13:35 76 116/59 03/23/17 13:30 80 80/55 03/23/17 13:15 75 88/44 03/23/17 13:00 73 104/47 03/23/17 12:45 73 91/43 03/23/17 12:30 83 100/57 03/23/17 12:15 80 105/66 03/23/17 12:00 59 109/58 03/23/17 11:45 76 121/69 03/23/17 11:30 76 132/62 03/23/17 11:15 75 126/67 03/23/17 11:00 77 134/75 03/23/17 10:45 68 156/73 03/23/17 10:30 68 150/68 03/23/17 10:15 64 146/80 03/23/17 10:02 67 143/71 03/23/17 09:58 36.5 70 141/74 (96) 03/23/17 08:00 Room Air 03/23/17 07:29 36.7 80 20 155/65 (95) 97 Room Air 03/23/17 00:00 Room Air 03/22/17 23:34 36.9 84 18 171/72 (105) 98 Room Air Physical Exam General Appearance: no apparent distress Respiratory/Chest: lungs clear, no respiratory distress Cardiovascular: no murmur Abdomen: normal bowel sounds, soft, no organomegaly, + tenderness (RUQ guarding but no rebound) Laboratory Results Last 24 Hours Test 03/22/17 16:52 03/22/17 19:50 03/23/17 07:22 03/23/17 07:34 Bedside Glucose 126 mg/dl 147 mg/dl 98 mg/dl Sodium Level 141 mmol/L Potassium Level 5.4 mmol/L Chloride Level 111 mmol/L Carbon Dioxide Level 19 mmol/L Anion Gap 11.0 mmol/L Blood Urea Nitrogen 67 mg/dl Creatinine 7.90 mg/dl Est Creatinine Clear Calc Drug Dose 8.9 ml/min Estimated GFR () 6.8 Estimated GFR (Non- 5.9 BUN/Creatinine Ratio 8.4 Random Glucose 111 mg/dl Calcium Level 9.1 mg/dl Test 03/23/17 14:53 Bedside Glucose 109 mg/dl Assessment and Plan RUQ pain--us of GB negative for pathology, EGD negative. HIDA with EF low so could be GB etiology. R colon pathology in the differential. Pt ok with restarting prep for colonsocopy and trying to do that whenever he is prepped adequately. diarrhea--stool cx pending. Cdiff negative. colonoscopy Possible mesenteric ischemia--abnormal CT 01/2017---vascular stated no intervention needed with CTA no occlusions of major mesenteric vessels DR Lorenzana assuming GI care today at 1700.
--- NOTE | 2017-03-23 19:02 | Progress Note ---
Subjective Date of Service: Mar 23, 2017. Subjective Pt evaluation today including: conversation w/ patient, physical exam, chart review, lab review, review of studies, conversation w/ fashion consultant sales, review of inpatient medication list Problem List Medical Problems: (1) Right sided abdominal pain Status: Acute (2) Right sided abdominal pain Status: Acute Review of Systems Constitutional: No see HPI, No fever, No chills, No sweats, No weight loss, No weakness, No fatigue, No problem reported Eyes: No see HPI, No worsening of vision, No eye pain, No redness, No discharge , No diplopia, No problem reported ENT: No see HPI, No hearing loss, No unusual epistaxis, No nasal symptoms, No sore throat, No tinnitus, No dental problems, No trouble swallowing, No problem reported Respiratory: No see HPI, No cough, No sputum, No wheezing, No shortness of breath, No dyspnea on exertion, No dyspnea at rest, No hemoptysis, No problem reported Cardiac: No see HPI, No chest pain, No orthopnea, No PND, No edema, No claudication, No palpitations, No problem reported Abdomen: + pain, + diarrhea, No see HPI, No nausea, No vomiting, No constipation, No GI bleeding, No problem reported Musculoskeletal: No see HPI, No joint pain, No muscle pain, No swelling, No calf pain, No problem reported Male : No see HPI, No dysuria, No urinary frequency, No incontinence, No nocturia more than once/night, No slowing stream, No hematuria, No sexual dysfunction, No problem reported Neurologic: No see HPI, No memory loss, No paralysis, No weakness, No numbness/ tingling, No vertigo, No balance problems, No problem reported Psychiatric: No see HPI, No depression symptoms, No anhedonism, No anxiety, No insomnia, No substance abuse, No problem reported Heme: No see HPI, No abnormal bleeding/bruising, No clotting problems, No swollen lymph nodes, No night sweats, No problem reported Skin: No see HPI, No rash, No itch, No new/changing skin lesions, No color change, No bleeding, No problem reported Objective Vital Signs Date Time Temp Pulse Resp B/P (MAP) Pulse Ox O2 Delivery O2 Flow Rate FiO2 03/23/17 14:44 36.4 79 121/61 (81) 03/23/17 13:45 77 119/64 03/23/17 13:35 76 116/59 03/23/17 13:30 80 80/55 03/23/17 13:15 75 88/44 03/23/17 13:00 73 104/47 03/23/17 12:45 73 91/43 03/23/17 12:30 83 100/57 03/23/17 12:15 80 105/66 03/23/17 12:00 59 109/58 03/23/17 11:45 76 121/69 03/23/17 11:30 76 132/62 03/23/17 11:15 75 126/67 03/23/17 11:00 77 134/75 03/23/17 10:45 68 156/73 03/23/17 10:30 68 150/68 03/23/17 10:15 64 146/80 03/23/17 10:02 67 143/71 03/23/17 09:58 36.5 70 141/74 (96) 03/23/17 08:00 Room Air 03/23/17 07:29 36.7 80 20 155/65 (95) 97 Room Air 03/23/17 00:00 Room Air 03/22/17 23:34 36.9 84 18 171/72 (105) 98 Room Air Physical Exam General Appearance: WD/WN, no apparent distress Eyes: normal inspection, EOMI ENT: normal ENT inspection, hearing grossly normal Neck: supple Respiratory/Chest: chest non-tender, lungs clear, normal breath sounds, no respiratory distress, no accessory muscle use Cardiovascular: regular rate, rhythm, no edema, no gallop, no JVD, no murmur Abdomen: normal bowel sounds, + distended, + tenderness (right mid quadrant) Extremities: normal range of motion, non-tender, normal inspection 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, no motor/sensory deficits, alert, normal mood/affect, oriented x 3 Skin: normal color, warm/dry, no rash Laboratory Results Last 24 Hours Test 03/22/17 19:50 03/23/17 07:22 03/23/17 07:34 03/23/17 14:53 Bedside Glucose 147 mg/dl 98 mg/dl 109 mg/dl Sodium Level 141 mmol/L Potassium Level 5.4 mmol/L Chloride Level 111 mmol/L Carbon Dioxide Level 19 mmol/L Anion Gap 11.0 mmol/L Blood Urea Nitrogen 67 mg/dl Creatinine 7.90 mg/dl Est Creatinine Clear Calc Drug Dose 8.9 ml/min Estimated GFR () 6.8 Estimated GFR (Non- 5.9 BUN/Creatinine Ratio 8.4 Random Glucose 111 mg/dl Calcium Level 9.1 mg/dl Assessment and Plan 81 years old man on hemodialysis presented with recurrent abdominal pain and chronic diarrhea, diarrhea is mainly postprandial. 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 After that was try pancreatic enzyme for his postprandial diarrhea End-stage renal disease, continue dialysis Type 2 diabetes on insulin; Continue SSI Deep venous thrombosis prophylaxis, heparin subQ. Hyperlipidemia, continue his Lipitor. Hypertension, continue his home medications and follow. Discharge planning: uncertain
[2017-03-23] MEDS: CIPROFLOXACIN / D5W 400 MG in PREMIXED IN D5W 200 ML IV SCH (21:35)
[2017-03-23] MEDS: LAVAGE SOLUTION 4000ML PO SCH (21:36)
[2017-03-23] MEDS: ATORVASTATIN 20 MG TAB PO SCH (21:43)
[2017-03-23] MEDS: RANITIDINE HCL 150 MG TAB PO SCH (21:48)
[2017-03-23] MEDS: METOPROLOL SUCC 50MG EXT REL TAB PO SCH (21:51)
[2017-03-24 00:21] VITALS: BP 165/77; PULSE 82; TEMP 36.8; O2SAT 98
[2017-03-24] MEDS: LAVAGE SOLUTION 4000ML PO SCH (05:15)
[2017-03-24] MEDS: ASPIRIN 81 MG ECTAB PO SCH (07:55)
[2017-03-24] MEDS: METRONIDAZOLE / NSS 500 MG in PREMIXED NSS 100 ML IV SCH ×3 (07:55→23:23)
[2017-03-24] MEDS: NEPHROCAPS PO SCH (07:55)
[2017-03-24] MEDS: AMLODIPINE BESYLATE 5 MG TAB PO SCH (07:55)
[2017-03-24] MEDS: DICLOFENAC SOD 1% GEL 100 GM TUBE EXT SCH ×4 (07:56→21:14)
[2017-03-24] MEDS: CEROVITE ADV FORMULA TAB PO SCH (07:56)
[2017-03-24] MEDS: INSULIN ASPART 100 UNITS/ML 3 ML PEN SC SCH ×4 (08:05→21:00)
[2017-03-24] MEDS: HEPARIN SOD 5000 UNIT/0.5 ML CARP SQ SCH ×2 (08:05→21:29)
[2017-03-24 08:13] VITALS: BP 125/67; PULSE 65; TEMP 36.4; O2SAT 100
[2017-03-24 09:00] LABS: HEMATOCRIT 33.5 % (42-52); MEAN CELL VOLUME 92.8 fL (80-100); MEAN CORPUSCULAR HEMOGLOBIN 30.2 pg (25-34); MEAN CORPUSCULAR HGB CONC 32.5 g/dl (32-36); MEAN PLATELET VOLUME 11.4 fL (7.4-10.4); PLATELET COUNT 250 K/uL (130-400); RED BLOOD COUNT 3.61 M/uL (4.7-6.1); WHITE BLOOD COUNT 6.41 K/uL (4.8-10.8)
[2017-03-24 09:34] LABS: ALB/GLOB RATIO 0.9 (0.9-2); BUN/CREATININE RATIO 6.4 (10-20); CALCIUM 8.8 mg/dl (8.5-10.1); CREATININE 4.9 mg/dl (0.60-1.40); MAGNESIUM 2.1 mg/dl (1.8-2.4); PHOSPHORUS 3.5 mg/dl (2.5-4.9); POTASSIUM 4.1 mmol/L (3.5-5.1)
--- NOTE | 2017-03-24 10:58 | Pharmacy Progress Note ---
Glycemic: Assessment & Plan Date of Service Mar 24, 2017. Assessment & Plan The patient is currently receiving 0 units of insulin per day. BSGs ranging 98 - 146 mg/dl over the past 24hrs. * Basal insulin: N/A * Correctional Insulin: Novolog Correction per scale ACHS Goal Range: Low 140 mg/dL - High 180 mg/dL Correction Factor: 40 mg/dL/unit * Prandial insulin: Per carb ratio of 1 unit per 15 grams CHO consumed BSGs continue to improve, no changes needed to inpatient regimen at this time. Pharmacy will continue to monitor patient daily and write orders per [facility] inpatient glycemic control protocol. Thanks. * Please note that the plan above was derived based on current level of insulin resistance and hospital stress. These recommendations are appropriate for inpatient admission only. Plan of care upon discharge will need to be reassessed to avoid potential outpatient hypo/hyperglycemia.
--- NOTE | 2017-03-24 11:26 | Nephrology Progress Note ---
Nephrology Progress Note Date of Service Mar 24, 2017. Chief Complaint Follow-up for end-stage renal disease on hemodialysis. Subjective Ed was seen and examined in his room this morning. He is overall feeling better , waiting for colonoscopy. Hemoglobin has been stable. Currently blood pressure volume status acceptable. Review of Systems A complete review of systems was performed. Pertinent positives are noted above. All other systems are negative. Vital Signs Last 8 Hrs Date Time Temp Pulse Resp B/P (MAP) Pulse Ox O2 Delivery O2 Flow Rate FiO2 03/24/17 08:13 36.4 65 20 125/67 (86) 100 Room Air Last Recorded Weight Weight (Kilograms): 100.300 Physical Exam GENERAL: Elderly male, AAA x 3, not in any distress. NECK: Supple, no JVD. RESPIRATORY: Normal breathing efforts, no accessory muscle use, clear to auscultation bilaterally, no wheezes or rales. CARDIOVASCULAR: S1, S2 normal, rate rhythm regular. EXTREMITY: No lower extremity edema NEURO: speech fluent. PSYCHIATRY: Normal mood and judgment Family History No pertinent family history Negative for CKD / ESRD Social History Drug Use: none Marital Status: Housing Status: lives with family Occupation: retired . has Alzheimers and requires home health nursing. Patient is retired. Current smoker Laboratory Results Past 24 Hours Test 03/23/17 14:53 03/23/17 20:31 03/24/17 07:59 03/24/17 08:16 Bedside Glucose 109 mg/dl (70-99) 143 mg/dl (70-99) 146 mg/dl (70-99) Allergies Coded Allergies: No Known Allergies (Unverified , 03/18/17) Medications Current Inpatient Medications Medications (Trade) Dose Ordered Sig/Brennan Route Start Time Stop Time Status Last Admin Dose Admin Ondansetron HCl (Zofran Inj) 4 mg Q6H PRN IV 03/18/17 15:45 04/17/17 15:44 Amlodipine Besylate (Norvasc Tab) 5 mg QAM PO 03/19/17 09:00 04/18/17 08:59 03/24/17 07:55 5 MG Aspirin (Ecotrin Tab) 81 mg QAM PO 03/19/17 09:00 04/18/17 08:59 03/24/17 07:55 81 MG Lidocaine/ Prilocaine (Emla 2.5% Crm) 1 ea UD PRN EXT 03/18/17 15:45 04/17/17 15:44 Metoprolol Succinate (Toprol Xl Tab) 50 mg QPM PO 03/18/17 21:00 04/17/17 20:59 03/23/17 21:51 50 MG Multivitamins/ Minerals (Multivitamin W/ Minerals Tab) 1 tab DAILY PO 03/19/17 09:00 04/18/17 08:59 03/24/17 07:56 1 TAB Ranitidine HCl (zANTac TAB) 150 mg HS PO 03/18/17 21:00 04/17/17 20:59 03/23/17 21:48 150 MG Vitamin B Complex/ Vit C/Folic Acid (Nephrocaps) 1 cap DAILY PO 03/19/17 09:00 04/18/17 08:59 03/24/17 07:55 1 CAP Diclofenac Sodium (Voltaren 1% Top Gel) 1 appln QID EXT 03/18/17 17:00 04/17/17 16:59 03/24/17 07:56 1 APPLN Temazepam (Restoril Cap) 7.5 mg HS PRN PO 03/18/17 15:45 04/17/17 15:44 Insulin Aspart (novoLOG ASPART) SLIDING SCALE G... ACHS SC 03/18/17 21:00 04/17/17 20:59 03/22/17 17:09 1 UNITS Ciprofloxacin/ Dextrose 400 mg/ Prmx 200 ml @ 100 mls/hr Q24H IV 03/19/17 16:00 03/29/17 15:59 03/23/17 21:35 100 MLS/HR Glucose (Glucose 40% Gel) 15-30 GRAMS 15 GRAMS... UD PRN PO 03/18/17 18:15 04/17/17 18:14 Glucose (Glucose Chew Tab) 4-8 Tablets 4 Tabl... UD PRN PO 03/18/17 18:15 04/17/17 18:14 Dextrose (Dextrose 50% 50ML Syringe) 25-50ML OF 50% DW IV FOR... UD PRN IV 03/18/17 18:15 04/17/17 18:14 Glucagon (Glucagon Inj) 1 mg UD PRN SQ 03/18/17 18:15 04/17/17 18:14 Heparin Sodium (Porcine) (Heparin Sq 5000 Unit/0.5ml) 5,000 unit Q12 SQ 03/19/17 09:00 04/18/17 08:59 03/24/17 08:05 5,000 UNIT Atorvastatin Calcium (Lipitor Tab) 40 mg HS PO 03/19/17 21:00 04/17/17 20:59 03/23/17 21:43 40 MG Metronidazole 500 mg/Prmx 100 ml @ 100 mls/hr Q8H IV 03/19/17 00:00 03/29/17 00:00 03/24/17 07:55 100 MLS/HR Miscellaneous Information (Consult Glycemic Management Pharmacy) 1 ea UD PRN N/A 03/19/17 17:05 04/18/17 17:04 Impression (1) ESRD on hemodialysis (2) Right sided abdominal pain (3) Diarrhea (4) Ischemic colitis (5) Hypertension (6) Diabetes mellitus Mr. Galeano was admitted to the hospital for evaluation of recurrent lower abdominal pain and diarrhea. Abdominal CT shows extensive atherosclerosis but no acute colitis. Surgical consultation has been requested. Stool cultures have been ordered. Patient is afebrile w/ normal WBC #. He does not have clinical signs of acute infection or sepsis at this time. He requires HD this evening due to hyperkalemia and metabolic acidosis Recommendations -- had dialysis yesterday for 4 hours, tolerated well, currently blood pressure , electrolyte and volume status acceptable. Plan for next dialysis tomorrow. --continue on phosphate binder with meals and Nephrocaps --avoid IV fluid --Blood pressure remains acceptable. Continue current medical regimen --suggest discontinuing H2 valente and starting on the Protonix
--- NOTE | 2017-03-24 12:51 | Progress Note ---
Subjective Date of Service: Mar 24, 2017. Problem List Medical Problems: (1) Right sided abdominal pain Status: Acute (2) Right sided abdominal pain Status: Acute Review of Systems Constitutional: No see HPI, No fever, No chills, No sweats, No weight loss, No weakness, No fatigue, No problem reported Eyes: No see HPI, No worsening of vision, No eye pain, No redness, No discharge , No diplopia, No problem reported ENT: No see HPI, No hearing loss, No unusual epistaxis, No nasal symptoms, No sore throat, No tinnitus, No dental problems, No trouble swallowing, No problem reported Respiratory: No see HPI, No cough, No sputum, No wheezing, No shortness of breath, No dyspnea on exertion, No dyspnea at rest, No hemoptysis, No problem reported Cardiac: No see HPI, No chest pain, No orthopnea, No PND, No edema, No claudication, No palpitations, No problem reported Abdomen: + pain, + diarrhea, No see HPI, No nausea, No vomiting, No constipation, No GI bleeding, No problem reported Musculoskeletal: No see HPI, No joint pain, No muscle pain, No swelling, No calf pain, No problem reported Male : No see HPI, No dysuria, No urinary frequency, No incontinence, No nocturia more than once/night, No slowing stream, No hematuria, No sexual dysfunction, No problem reported Neurologic: No see HPI, No memory loss, No paralysis, No weakness, No numbness/ tingling, No vertigo, No balance problems, No problem reported Psychiatric: No see HPI, No depression symptoms, No anhedonism, No anxiety, No insomnia, No substance abuse, No problem reported Heme: No see HPI, No abnormal bleeding/bruising, No clotting problems, No swollen lymph nodes, No night sweats, No problem reported Endo: No see HPI, No fatigue, No excessive thirst, No excessive urination, No problem reported Skin: No see HPI, No rash, No itch, No new/changing skin lesions, No color change, No bleeding, No problem reported Objective Vital Signs Date Time Temp Pulse Resp B/P (MAP) Pulse Ox O2 Delivery O2 Flow Rate FiO2 03/24/17 08:13 36.4 65 20 125/67 (86) 100 Room Air 03/24/17 08:00 Room Air 03/24/17 00:21 36.8 82 20 165/77 (106) 98 Room Air 03/24/17 00:00 Room Air 03/23/17 21:51 36.7 87 20 110/67 (81) 97 Room Air 03/23/17 18:00 Room Air 03/23/17 14:44 36.4 79 121/61 (81) 03/23/17 13:45 77 119/64 03/23/17 13:35 76 116/59 03/23/17 13:30 80 80/55 03/23/17 13:15 75 88/44 03/23/17 13:00 73 104/47 03/23/17 12:45 73 91/43 Physical Exam General Appearance: WD/WN, no apparent distress Eyes: normal inspection, EOMI ENT: normal ENT inspection, hearing grossly normal Neck: supple Respiratory/Chest: chest non-tender, lungs clear, normal breath sounds, no respiratory distress Cardiovascular: regular rate, rhythm, no edema, no gallop, no JVD, no murmur Abdomen: normal bowel sounds, + distended, + tenderness Extremities: normal range of motion, non-tender, normal inspection, no pedal edema, no calf tenderness 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, no motor/sensory deficits, alert, normal mood/affect, oriented x 3 Skin: normal color, warm/dry, no rash Laboratory Results Last 24 Hours Test 03/23/17 14:53 03/23/17 20:31 03/24/17 07:59 03/24/17 08:16 Bedside Glucose 109 mg/dl 143 mg/dl 146 mg/dl White Blood Count 6.41 K/uL Red Blood Count 3.61 M/uL Hemoglobin 10.9 g/dL Hematocrit 33.5 % Mean Corpuscular Volume 92.8 fL Mean Corpuscular Hemoglobin 30.2 pg Mean Corpuscular Hemoglobin Concent 32.5 g/dl RDW Standard Deviation 53.3 fL RDW Coefficient of Variation 15.6 % Platelet Count 250 K/uL Mean Platelet Volume 11.4 fL Sodium Level 138 mmol/L Potassium Level 4.1 mmol/L Chloride Level 102 mmol/L Carbon Dioxide Level 26 mmol/L Anion Gap 10.0 mmol/L Blood Urea Nitrogen 32 mg/dl Creatinine 4.90 mg/dl Est Creatinine Clear Calc Drug Dose 14.3 ml/min Estimated GFR () 12.1 Estimated GFR (Non- 10.4 BUN/Creatinine Ratio 6.4 Random Glucose 145 mg/dl Calcium Level 8.8 mg/dl Phosphorus Level 3.5 mg/dl Magnesium Level 2.1 mg/dl Total Bilirubin 0.4 mg/dl Aspartate Amino Transf (AST/SGOT) 34 U/L Alanine Aminotransferase (ALT/SGPT) 38 U/L Alkaline Phosphatase 88 U/L Total Protein 7.0 gm/dl Albumin 3.4 gm/dl Globulin 3.6 gm/dl Albumin/Globulin Ratio 0.9 Test 03/24/17 11:13 Bedside Glucose 130 mg/dl Assessment and Plan 81 years old man on hemodialysis presented with recurrent abdominal pain and chronic diarrhea, diarrhea is mainly postprandial. Abdominal pain and postprandial diarrhea DD includes chronic ischemic colitis, bacterial overgrowth, biliary dyskinesia ( doubted by surgery ), ciliac, lactose intolerance , Crohn's, irritable bowel syndrome-diarrhea, maldigestion due to bile acid malabsorption or pancreatic exocrine insufficiency HIDA without cystic obstruction but EF was 17% U/S showed no cholelithiasis CT angiography was suggestive to vascular disease S/P EGD showed Dieulafoy lesion in the upper stomach, which was actively oozing and clipped with cessation of bleeding GI planning to do colonoscopy., going through prep now started a trial of pancreatic enzyme for his postprandial diarrhea End-stage renal disease, continue dialysis Type 2 diabetes on insulin; Continue SSI Deep venous thrombosis prophylaxis, heparin subQ. Hyperlipidemia, continue his Lipitor. Hypertension, continue his home medications and follow. 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 Discharge planning: uncertain
[2017-03-24 15:55] VITALS: BP 155/77; PULSE 77; TEMP 36.8; O2SAT 97
[2017-03-24] MEDS: CIPROFLOXACIN / D5W 400 MG in PREMIXED IN D5W 200 ML IV SCH (16:29)
[2017-03-24] MEDS: PANCREAZE (LIPASE 16,800U) CAP PO SCH (16:32)
[2017-03-24] MEDS: ATORVASTATIN 20 MG TAB PO SCH (21:13)
[2017-03-24] MEDS: RANITIDINE HCL 150 MG TAB PO SCH (21:13)
[2017-03-24 21:20] VITALS: BP 153/64; PULSE 76
[2017-03-24] MEDS: METOPROLOL SUCC 50MG EXT REL TAB PO SCH (21:20)
[2017-03-24 22:24] VITALS: BP 150/70; PULSE 71; TEMP 36.3; O2SAT 95
--- NOTE | 2017-03-25 05:56 | GASTROENTEROLOGY PROGRESS NOTE ---
DATE: 03/24/2017 GASTROENTEROLOGY INPATIENT PROGRESS NOTE SUBJECTIVE: The patient with evidence of right upper quadrant pain and anemia. Upper endoscopy was unremarkable; however, gallbladder shows a low ejection fraction and anticipation for cholecystectomy is for later this week. Stool cultures for C. diff were negative. Suggestion of a mesenteric ischemia on a recent CT scan. The patient currently feels well overall, his right-sided pain is diminished. He is beginning a bowel prep as a continuation of an earlier prep this week, for which colonoscopy was limited by the prep. MEDICATIONS: His medications were reviewed as was his allergy list and are present in the medical record. REVIEW OF SYSTEMS: Otherwise noncontributory based on a 13-point exam. PHYSICAL EXAMINATION: VITAL SIGNS: Today, blood pressure was 155/77, heart rate 77, temperature 36.8, room air 97%, respirations 16. GENERAL: The patient is awake, alert and oriented x3. HEART: Normal S1, S2. LUNGS: Clear to auscultation. ABDOMEN: Soft, nontender, nondistended with good bowel sounds. EXTREMITIES: With trace to +1 edema bilaterally. RECTAL: Deferred. IMPRESSION AND PLAN: Plan for colonoscopy tomorrow. 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 Will continue GoLYTELY prep until clear. Further recommendations once the colonoscopy is completed. Depending on results, planned cholecystectomy later this week. MTDD
[2017-03-25] MEDS: PANCREAZE (LIPASE 16,800U) CAP PO SCH ×3 (06:06→18:13)
[2017-03-25 07:33] LABS: BASO % 1.5 %; BASO ABS # 0.11 K/uL (0-0.2); COMPLETE YES; HEMATOCRIT 34.3 % (42-52); IG% 0.3 %; LYMPH ABS # 1.61 K/uL (1.2-3.4); MEAN CELL VOLUME 91.7 fL (80-100); MEAN CORPUSCULAR HEMOGLOBIN 29.4 pg (25-34); MEAN CORPUSCULAR HGB CONC 32.1 g/dl (32-36); MEAN PLATELET VOLUME 11.1 fL (7.4-10.4); MONO % 11.6 %; NEUT % 58.6 %; PLATELET COUNT 275 K/uL (130-400); RED BLOOD COUNT 3.74 M/uL (4.7-6.1); WHITE BLOOD COUNT 7.32 K/uL (4.8-10.8)
[2017-03-25] MEDS: CEROVITE ADV FORMULA TAB PO SCH (07:34)
[2017-03-25] MEDS: NEPHROCAPS PO SCH (07:34)
[2017-03-25] MEDS: AMLODIPINE BESYLATE 5 MG TAB PO SCH (07:35)
[2017-03-25] MEDS: METRONIDAZOLE / NSS 500 MG in PREMIXED NSS 100 ML IV SCH ×2 (07:35→18:12)
[2017-03-25] MEDS: DICLOFENAC SOD 1% GEL 100 GM TUBE EXT SCH ×4 (07:35→20:23)
[2017-03-25] MEDS: ASPIRIN 81 MG ECTAB PO SCH (07:35)
[2017-03-25] MEDS: HEPARIN SOD 5000 UNIT/0.5 ML CARP SQ SCH ×2 (07:49→20:40)
[2017-03-25] MEDS: INSULIN ASPART 100 UNITS/ML 3 ML PEN SC SCH ×4 (07:51→20:29)
[2017-03-25 08:11] VITALS: BP 157/71; PULSE 88; TEMP 36.5; O2SAT 97
[2017-03-25 08:38] LABS: BUN/CREATININE RATIO 6.2 (10-20); CALCIUM 9.9 mg/dl (8.5-10.1); CREATININE 5.9 mg/dl (0.60-1.40); MAGNESIUM 2.2 mg/dl (1.8-2.4); POTASSIUM 3.9 mmol/L (3.5-5.1)
--- NOTE | 2017-03-25 11:23 | Nephrology Progress Note ---
Nephrology Progress Note Date of Service Mar 25, 2017. Chief Complaint Follow-up for end-stage renal disease on hemodialysis. Subjective Ed was seen and examined in his room this am. Frustrated, waiting for colonoscopy this afternoon. BP, electrolyte volume status stable. Review of Systems A complete review of systems was performed. Pertinent positives are noted above. All other systems are negative. Vital Signs Last 8 Hrs Date Time Temp Pulse Resp B/P (MAP) Pulse Ox O2 Delivery O2 Flow Rate FiO2 03/25/17 08:11 36.5 88 20 157/71 (99) 97 Room Air 03/25/17 08:00 Room Air Last Recorded Weight Weight (Kilograms): 98.700 Physical Exam GENERAL: Elderly male, AAA x 3, not in any distress. NECK: Supple, no JVD. RESPIRATORY: Normal breathing efforts, no accessory muscle use, clear to auscultation bilaterally, no wheezes or rales. CARDIOVASCULAR: S1, S2 normal, rate rhythm regular. EXTREMITY: No lower extremity edema NEURO: speech fluent. PSYCHIATRY: Normal mood and judgment Family History No pertinent family history Negative for CKD / ESRD Social History Drug Use: none Marital Status: Housing Status: lives with family Occupation: retired . has Alzheimers and requires home health nursing. Patient is retired. Current smoker Laboratory Results Past 24 Hours 03/25/17 07:13 Red Blood Count 3.74, Mean Corpuscular Volume 91.7, Mean Corpuscular Hemoglobin 29.4, Mean Corpuscular Hemoglobin Concent 32.1, Mean Platelet Volume 11.1, Neutrophils (%) (Auto) 58.6, Lymphocytes (%) (Auto) 22.0, Monocytes (%) (Auto) 11.6, Eosinophils (%) (Auto) 6.0, Basophils (%) (Auto) 1.5, Neutrophils # (Auto ) 4.29, Lymphocytes # (Auto) 1.61, Monocytes # (Auto) 0.85, Eosinophils # (Auto ) 0.44, Basophils # (Auto) 0.11 03/25/17 07:13 Test 03/24/17 16:08 03/24/17 20:51 03/25/17 07:13 03/25/17 07:35 Bedside Glucose 109 mg/dl (70-99) 143 mg/dl (70-99) 129 mg/dl (70-99) White Blood Count 7.32 K/uL (4.8-10.8) Red Blood Count 3.74 M/uL (4.7-6.1) Hemoglobin 11.0 g/dL (14.0-18.0) Hematocrit 34.3 % (42-52) Mean Corpuscular Volume 91.7 fL (80-100) Mean Corpuscular Hemoglobin 29.4 pg (25-34) Mean Corpuscular Hemoglobin Concent 32.1 g/dl (32-36) Platelet Count 275 K/uL (130-400) Mean Platelet Volume 11.1 fL (7.4-10.4) Neutrophils (%) (Auto) 58.6 % Lymphocytes (%) (Auto) 22.0 % Monocytes (%) (Auto) 11.6 % Eosinophils (%) (Auto) 6.0 % Basophils (%) (Auto) 1.5 % Neutrophils # (Auto) 4.29 K/uL (1.4-6.5) Lymphocytes # (Auto) 1.61 K/uL (1.2-3.4) Monocytes # (Auto) 0.85 K/uL (0.11-0.59) Eosinophils # (Auto) 0.44 K/uL (0-0.5) Basophils # (Auto) 0.11 K/uL (0-0.2) RDW Standard Deviation 52.6 fL (36.4-46.3) RDW Coefficient of Variation 15.6 % (11.5-14.5) Immature Granulocyte % (Auto) 0.3 % Immature Granulocyte # (Auto) 0.02 K/uL (0.00-0.02) Anion Gap 12.0 mmol/L (3-11) Est Creatinine Clear Calc Drug Dose 11.8 ml/min Estimated GFR () 9.7 Estimated GFR (Non- 8.3 BUN/Creatinine Ratio 6.2 (10-20) Calcium Level 9.9 mg/dl (8.5-10.1) Magnesium Level 2.2 mg/dl (1.8-2.4) Chemistry Specimen Hemolysis Allergies Coded Allergies: No Known Allergies (Unverified , 03/18/17) Medications Current Inpatient Medications Medications (Trade) Dose Ordered Sig/Brennan Route Start Time Stop Time Status Last Admin Dose Admin Ondansetron HCl (Zofran Inj) 4 mg Q6H PRN IV 03/18/17 15:45 04/17/17 15:44 Amlodipine Besylate (Norvasc Tab) 5 mg QAM PO 03/19/17 09:00 04/18/17 08:59 03/25/17 07:35 5 MG Aspirin (Ecotrin Tab) 81 mg QAM PO 03/19/17 09:00 04/18/17 08:59 03/25/17 07:35 81 MG Lidocaine/ Prilocaine (Emla 2.5% Crm) 1 ea UD PRN EXT 03/18/17 15:45 04/17/17 15:44 Metoprolol Succinate (Toprol Xl Tab) 50 mg QPM PO 03/18/17 21:00 04/17/17 20:59 03/24/17 21:20 50 MG Multivitamins/ Minerals (Multivitamin W/ Minerals Tab) 1 tab DAILY PO 03/19/17 09:00 04/18/17 08:59 03/25/17 07:34 1 TAB Ranitidine HCl (zANTac TAB) 150 mg HS PO 03/18/17 21:00 04/17/17 20:59 03/24/17 21:13 150 MG Vitamin B Complex/ Vit C/Folic Acid (Nephrocaps) 1 cap DAILY PO 03/19/17 09:00 04/18/17 08:59 03/25/17 07:34 1 CAP Diclofenac Sodium (Voltaren 1% Top Gel) 1 appln QID EXT 03/18/17 17:00 04/17/17 16:59 03/25/17 07:35 1 APPLN Temazepam (Restoril Cap) 7.5 mg HS PRN PO 03/18/17 15:45 04/17/17 15:44 Insulin Aspart (novoLOG ASPART) SLIDING SCALE G... ACHS SC 03/18/17 21:00 04/17/17 20:59 03/22/17 17:09 1 UNITS Ciprofloxacin/ Dextrose 400 mg/ Prmx 200 ml @ 100 mls/hr Q24H IV 03/19/17 16:00 03/29/17 15:59 03/24/17 16:29 100 MLS/HR Glucose (Glucose 40% Gel) 15-30 GRAMS 15 GRAMS... UD PRN PO 03/18/17 18:15 04/17/17 18:14 Glucose (Glucose Chew Tab) 4-8 Tablets 4 Tabl... UD PRN PO 03/18/17 18:15 04/17/17 18:14 Dextrose (Dextrose 50% 50ML Syringe) 25-50ML OF 50% DW IV FOR... UD PRN IV 03/18/17 18:15 04/17/17 18:14 Glucagon (Glucagon Inj) 1 mg UD PRN SQ 03/18/17 18:15 04/17/17 18:14 Heparin Sodium (Porcine) (Heparin Sq 5000 Unit/0.5ml) 5,000 unit Q12 SQ 03/19/17 09:00 04/18/17 08:59 03/25/17 07:49 5,000 UNIT Atorvastatin Calcium (Lipitor Tab) 40 mg HS PO 03/19/17 21:00 04/17/17 20:59 03/24/17 21:13 40 MG Metronidazole 500 mg/Prmx 100 ml @ 100 mls/hr Q8H IV 03/19/17 00:00 03/29/17 00:00 03/25/17 07:35 100 MLS/HR Miscellaneous Information (Consult Glycemic Management Pharmacy) 1 ea UD PRN N/A 03/19/17 17:05 04/18/17 17:04 Amylase/Lipase/ Protease (Pancreaze [id number] Unit) 1 cap AC PO 03/24/17 16:30 04/23/17 16:29 03/24/17 16:32 1 CAP Impression (1) ESRD on hemodialysis (2) Right sided abdominal pain (3) Diarrhea (4) Ischemic colitis (5) Hypertension (6) Diabetes mellitus Mr. Galeano was admitted to the hospital for evaluation of recurrent lower abdominal pain and diarrhea. Abdominal CT shows extensive atherosclerosis but no acute colitis. Surgical consultation has been requested. Stool cultures have been ordered. Patient is afebrile w/ normal WBC #. He does not have clinical signs of acute infection or sepsis at this time. He requires HD this evening due to hyperkalemia and metabolic acidosis Recommendations -- currently blood pressure, electrolyte and volume status acceptable. Patient was initially scheduled for dialysis this morning however his getting and prepped for colonoscopy and having frequent bowel movement, it will be difficult to see a 4 hours and dialysis at the dialysis unit. -- Will hold dialysis today and plan for tomorrow --continue on phosphate binder with meals and Nephrocaps --avoid IV fluid --Blood pressure remains acceptable. Continue current medical regimen --suggest discontinuing H2 valente and starting on the Protonix
--- NOTE | 2017-03-25 12:05 | History & Physical Bridge Note ---
H&P Re-Evaluation Bridge Note: I have examined the patient, reviewed the History & Physical and in the interval since the performance of the History & Physical I have noted the following changes of clinical significance: No changes noted
[2017-03-25] MEDS ORDERED: PROPOFOL IV EMULSION 10 MG/ML 20 ML VIAL IV ONE (12:39)
[2017-03-25] MEDS ORDERED: LIDOCAINE HCL 2% 2 ML VIAL (20MG/ML) ONE (12:39)
--- NOTE | 2017-03-25 13:17 | Anesthesiology Progress Note ---
Anesthesia Post Op Note Date & Time Mar 25, 2017 at 13:17 Vital Signs Pain Intensity: 0 Vital Signs Past 12 Hours Date Time Temp Pulse Resp B/P (MAP) Pulse Ox O2 Delivery O2 Flow Rate FiO2 03/25/17 13:16 80 18 174/73 (106) 98 Room Air 03/25/17 13:01 36.7 78 18 157/96 (116) 99 Room Air 03/25/17 12:46 36.7 80 18 142/82 (102) 99 Room Air 03/25/17 11:27 36.7 73 20 144/83 (103) 100 Room Air 03/25/17 08:11 36.5 88 20 157/71 (99) 97 Room Air 03/25/17 08:00 Room Air Notes Mental Status: alert / awake / arousable, participated in evaluation Pt Amnestic to Procedure: Yes Nausea / Vomiting: adequately controlled Pain: adequately controlled Airway Patency, RR, SpO2: stable & adequate BP & HR: stable & adequate Hydration State: stable & adequate Anesthetic Complications: no major complications apparent
[2017-03-25 13:35] VITALS: BP 146/69; PULSE 75; O2SAT 97
[2017-03-25 16:20] VITALS: BP 133/63; PULSE 71; TEMP 36.5; O2SAT 96
--- NOTE | 2017-03-25 17:09 | Progress Note ---
Subjective Date of Service: Mar 25, 2017. Subjective Pt evaluation today including: conversation w/ patient, conversation w/ family , physical exam, lab review, review of inpatient medication list Problem List Medical Problems: (1) Right sided abdominal pain Status: Acute (2) Right sided abdominal pain Status: Acute Review of Systems Constitutional: No see HPI, No fever, No chills, No sweats, No weight loss, No weakness, No fatigue, No problem reported Eyes: No see HPI, No worsening of vision, No eye pain, No redness, No discharge , No diplopia, No problem reported ENT: No see HPI, No hearing loss, No unusual epistaxis, No nasal symptoms, No sore throat, No tinnitus, No dental problems, No trouble swallowing, No problem reported Respiratory: No see HPI, No cough, No sputum, No wheezing, No shortness of breath, No dyspnea on exertion, No dyspnea at rest, No hemoptysis, No problem reported Cardiac: No see HPI, No chest pain, No orthopnea, No PND, No edema, No claudication, No palpitations, No problem reported Abdomen: No see HPI, No pain, No nausea, No vomiting, No diarrhea, No constipation, No GI bleeding, No problem reported Musculoskeletal: No see HPI, No joint pain, No muscle pain, No swelling, No calf pain, No problem reported Neurologic: No see HPI, No memory loss, No paralysis, No weakness, No numbness/ tingling, No vertigo, No balance problems, No problem reported Psychiatric: No see HPI, No depression symptoms, No anhedonism, No anxiety, No insomnia, No substance abuse, No problem reported Heme: No see HPI, No abnormal bleeding/bruising, No clotting problems, No swollen lymph nodes, No night sweats, No problem reported Endo: No see HPI, No fatigue, No excessive thirst, No excessive urination, No problem reported Skin: No see HPI, No rash, No itch, No new/changing skin lesions, No color change, No bleeding, No problem reported Medications Current Inpatient Medications Medications (Trade) Dose Ordered Sig/Brennan Route Start Time Stop Time Status Last Admin Dose Admin Ondansetron HCl (Zofran Inj) 4 mg Q6H PRN IV 03/18/17 15:45 04/17/17 15:44 Amlodipine Besylate (Norvasc Tab) 5 mg QAM PO 03/19/17 09:00 04/18/17 08:59 03/25/17 07:35 5 MG Aspirin (Ecotrin Tab) 81 mg QAM PO 03/19/17 09:00 04/18/17 08:59 03/25/17 07:35 81 MG Lidocaine/ Prilocaine (Emla 2.5% Crm) 1 ea UD PRN EXT 03/18/17 15:45 04/17/17 15:44 Metoprolol Succinate (Toprol Xl Tab) 50 mg QPM PO 03/18/17 21:00 04/17/17 20:59 03/24/17 21:20 50 MG Multivitamins/ Minerals (Multivitamin W/ Minerals Tab) 1 tab DAILY PO 03/19/17 09:00 04/18/17 08:59 03/25/17 07:34 1 TAB Ranitidine HCl (zANTac TAB) 150 mg HS PO 03/18/17 21:00 04/17/17 20:59 03/24/17 21:13 150 MG Vitamin B Complex/ Vit C/Folic Acid (Nephrocaps) 1 cap DAILY PO 03/19/17 09:00 04/18/17 08:59 03/25/17 07:34 1 CAP Diclofenac Sodium (Voltaren 1% Top Gel) 1 appln QID EXT 03/18/17 17:00 04/17/17 16:59 03/25/17 07:35 1 APPLN Temazepam (Restoril Cap) 7.5 mg HS PRN PO 03/18/17 15:45 04/17/17 15:44 Insulin Aspart (novoLOG ASPART) SLIDING SCALE G... ACHS SC 03/18/17 21:00 04/17/17 20:59 03/22/17 17:09 1 UNITS Ciprofloxacin/ Dextrose 400 mg/ Prmx 200 ml @ 100 mls/hr Q24H IV 03/19/17 16:00 03/29/17 15:59 03/24/17 16:29 100 MLS/HR Glucose (Glucose 40% Gel) 15-30 GRAMS 15 GRAMS... UD PRN PO 03/18/17 18:15 04/17/17 18:14 Glucose (Glucose Chew Tab) 4-8 Tablets 4 Tabl... UD PRN PO 03/18/17 18:15 04/17/17 18:14 Dextrose (Dextrose 50% 50ML Syringe) 25-50ML OF 50% DW IV FOR... UD PRN IV 03/18/17 18:15 04/17/17 18:14 Glucagon (Glucagon Inj) 1 mg UD PRN SQ 03/18/17 18:15 04/17/17 18:14 Heparin Sodium (Porcine) (Heparin Sq 5000 Unit/0.5ml) 5,000 unit Q12 SQ 03/19/17 09:00 04/18/17 08:59 03/25/17 07:49 5,000 UNIT Atorvastatin Calcium (Lipitor Tab) 40 mg HS PO 03/19/17 21:00 04/17/17 20:59 03/24/17 21:13 40 MG Metronidazole 500 mg/Prmx 100 ml @ 100 mls/hr Q8H IV 03/19/17 00:00 03/29/17 00:00 03/25/17 07:35 100 MLS/HR Miscellaneous Information (Consult Glycemic Management Pharmacy) 1 ea UD PRN N/A 03/19/17 17:05 04/18/17 17:04 Amylase/Lipase/ Protease (Pancreaze [id number] Unit) 1 cap AC PO 03/24/17 16:30 04/23/17 16:29 03/24/17 16:32 1 CAP Objective Vital Signs Date Time Temp Pulse Resp B/P (MAP) Pulse Ox O2 Delivery O2 Flow Rate FiO2 03/25/17 16:20 36.5 71 18 133/63 (86) 96 Room Air 03/25/17 13:35 75 18 146/69 (94) 97 Room Air 03/25/17 13:16 80 18 174/73 (106) 98 Room Air 03/25/17 13:01 36.7 78 18 157/96 (116) 99 Room Air 03/25/17 12:46 36.7 80 18 142/82 (102) 99 Room Air 03/25/17 11:27 36.7 73 20 144/83 (103) 100 Room Air 03/25/17 08:11 36.5 88 20 157/71 (99) 97 Room Air 03/25/17 08:00 Room Air 03/25/17 00:00 Room Air 03/24/17 22:24 36.3 71 20 150/70 (96) 95 Room Air 03/24/17 21:20 76 153/64 (93) 03/24/17 19:00 Room Air Physical Exam General Appearance: WD/WN, no apparent distress Eyes: normal inspection, EOMI ENT: normal ENT inspection, hearing grossly normal Neck: no adenopathy Respiratory/Chest: chest non-tender, lungs clear, normal breath sounds, no respiratory distress, no accessory muscle use Cardiovascular: regular rate, rhythm, no edema, no gallop, no JVD, no murmur Abdomen: normal bowel sounds, non tender, soft, no organomegaly Extremities: normal range of motion, non-tender, normal inspection, no pedal edema, no calf tenderness Neurologic/Psychiatric: inserting operator II-XII nml as tested, no motor/sensory deficits, alert, normal mood/affect, oriented x 3 Skin: normal color, warm/dry, no rash Laboratory Results Last 24 Hours Test 03/24/17 20:51 03/25/17 07:13 03/25/17 07:35 03/25/17 14:03 Bedside Glucose 143 mg/dl 129 mg/dl 129 mg/dl White Blood Count 7.32 K/uL Red Blood Count 3.74 M/uL Hemoglobin 11.0 g/dL Hematocrit 34.3 % Mean Corpuscular Volume 91.7 fL Mean Corpuscular Hemoglobin 29.4 pg Mean Corpuscular Hemoglobin Concent 32.1 g/dl Platelet Count 275 K/uL Mean Platelet Volume 11.1 fL Neutrophils (%) (Auto) 58.6 % Lymphocytes (%) (Auto) 22.0 % Monocytes (%) (Auto) 11.6 % Eosinophils (%) (Auto) 6.0 % Basophils (%) (Auto) 1.5 % Neutrophils # (Auto) 4.29 K/uL Lymphocytes # (Auto) 1.61 K/uL Monocytes # (Auto) 0.85 K/uL Eosinophils # (Auto) 0.44 K/uL Basophils # (Auto) 0.11 K/uL RDW Standard Deviation 52.6 fL RDW Coefficient of Variation 15.6 % Immature Granulocyte % (Auto) 0.3 % Immature Granulocyte # (Auto) 0.02 K/uL Sodium Level 140 mmol/L Potassium Level 3.9 mmol/L Chloride Level 104 mmol/L Carbon Dioxide Level 24 mmol/L Anion Gap 12.0 mmol/L Blood Urea Nitrogen 37 mg/dl Creatinine 5.90 mg/dl Est Creatinine Clear Calc Drug Dose 11.8 ml/min Estimated GFR () 9.7 Estimated GFR (Non- 8.3 BUN/Creatinine Ratio 6.2 Random Glucose 131 mg/dl Calcium Level 9.9 mg/dl Magnesium Level 2.2 mg/dl Chemistry Specimen Hemolysis Test 03/25/17 16:47 Bedside Glucose 165 mg/dl Assessment and Plan 81 years old man on hemodialysis presented with recurrent abdominal pain and chronic diarrhea, diarrhea is mainly postprandial. 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 Hyperlipidemia, continue his Lipitor. Hypertension, continue his home medications and follow. 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 Discharge planning: uncertain
[2017-03-25] MEDS: CIPROFLOXACIN / D5W 400 MG in PREMIXED IN D5W 200 ML IV SCH (19:43)
[2017-03-25 20:00] VITALS: BP 157/71; PULSE 73; TEMP 36.8; O2SAT 96
[2017-03-25] MEDS: ATORVASTATIN 20 MG TAB PO SCH (20:24)
[2017-03-25] MEDS: RANITIDINE HCL 150 MG TAB PO SCH (20:26)
[2017-03-25] MEDS: METOPROLOL SUCC 50MG EXT REL TAB PO SCH (20:29)
[2017-03-25 23:16] VITALS: BP 146/70; PULSE 74; TEMP 36.7; O2SAT 97
[2017-03-26] VITALS (20 sets, daily range): BP systolic 102–149; BP diastolic 35–75; PULSE 65–81; TEMP 36.6–36.8; O2SAT 93–99
[2017-03-26] MEDS: METRONIDAZOLE / NSS 500 MG in PREMIXED NSS 100 ML IV SCH ×3 (00:43→16:00)
[2017-03-26] MEDS ORDERED: DiphenhydrAMINE 2%/ZINC 0.1% CREAM 28GM TUBE EXT PRN (01:00)
[2017-03-26] MEDS: PANCREAZE (LIPASE 16,800U) CAP PO SCH ×3 (05:59→16:02)
[2017-03-26 08:02] LABS: BUN/CREATININE RATIO 6.7 (10-20); CALCIUM 9.7 mg/dl (8.5-10.1); CREATININE 7.1 mg/dl (0.60-1.40); POTASSIUM 4.1 mmol/L (3.5-5.1)
--- NOTE | 2017-03-26 08:08 | Surgery Progress Note ---
Surgery Progress Note Date of Service Mar 26, 2017. Subjective feeling ok. had colonoscopy yesterday but not transcribed yet. per pt they did bx's and removed polyps. no pain now. eating without issue. no nausea. Objective Vital Signs: Date Time Temp Pulse Resp B/P (MAP) Pulse Ox O2 Delivery O2 Flow Rate FiO2 03/26/17 07:08 36.6 70 18 149/62 (91) 98 Room Air 03/26/17 00:00 Room Air 03/25/17 23:16 36.7 74 18 146/70 (95) 97 2.0 03/25/17 20:00 36.8 73 18 157/71 (99) 96 Room Air 03/25/17 20:00 Room Air 03/25/17 16:20 36.5 71 18 133/63 (86) 96 Room Air 03/25/17 13:35 75 18 146/69 (94) 97 Room Air 03/25/17 13:16 80 18 174/73 (106) 98 Room Air 03/25/17 13:01 36.7 78 18 157/96 (116) 99 Room Air 03/25/17 12:46 36.7 80 18 142/82 (102) 99 Room Air 03/25/17 11:27 36.7 73 20 144/83 (103) 100 Room Air 03/25/17 08:11 36.5 88 20 157/71 (99) 97 Room Air General Appearance: no apparent distress Head: normocephalic, atraumatic Respiratory/Chest: no respiratory distress, no accessory muscle use Abdomen: non tender, soft Laboratory Results: Results Past 24 Hours Test 03/25/17 14:03 03/25/17 16:47 03/25/17 20:23 03/26/17 06:57 Range/Units Bedside Glucose 129 165 165 70-99 mg/dl Sodium Level 139 136-145 mmol/L Potassium Level 4.1 3.5-5.1 mmol/L Chloride Level 105 98-107 mmol/L Carbon Dioxide Level 22 21-32 mmol/L Anion Gap 12.0 3-11 mmol/L Blood Urea Nitrogen 48 7-18 mg/dl Creatinine 7.10 0.60-1.40 mg/dl Est Creatinine Clear Calc Drug Dose 9.8 ml/min Estimated GFR () 7.7 Estimated GFR (Non- 6.7 BUN/Creatinine Ratio 6.7 10-20 Random Glucose 141 70-99 mg/dl Calcium Level 9.7 8.5-10.1 mg/dl Assessment & Plan ischemic colitis, chronic biliary dyskinesia There was colonic thickening (ascending & hepatic flexure) on CT 01/23 and recent HIDA showed EF 17%. It is uncertain that cholecystectomy will alleviate his symptoms. 03/26/17. pt doing ok clinically. ok for d/c from my standpoint. I doubt lap olya will help him but I will see him in 2-3 weeks in office to further discuss. 03/23/17 his pain is currently right mid to RLQ...doubt gallbladder is etiology b/c of loose bm's and recent abnormal CT of colon, suspect colitis as etiology rec colonoscopy. currently no plans to proceed with lap olya. no evidence of cholecystitis and he is having pain not nausea...lap olya likely would not improve his symptoms. ischemic colitis, chronic biliary dyskinesia There was colonic thickening (ascending & hepatic flexure) on CT 01/23 and recent HIDA showed EF 17%. It is uncertain that cholecystectomy will alleviate his symptoms. Would prefer he have colonoscopy prior to cholecystectomy. Either of these can be done as an outpatient but he does not feel he can return home with his current symptoms/diarrhea. 03/23/17 his pain is currently right mid to RLQ...doubt gallbladder is etiology b/c of loose bm's and recent abnormal CT of colon, suspect colitis as etiology rec colonoscopy. currently no plans to proceed with lap olya. no evidence of cholecystitis and he is having pain not nausea...lap olya likely would not improve his symptoms.
[2017-03-26] MEDS: DICLOFENAC SOD 1% GEL 100 GM TUBE EXT SCH ×4 (08:36→21:45)
[2017-03-26] MEDS: INSULIN ASPART 100 UNITS/ML 3 ML PEN SC SCH ×4 (08:41→21:36)
[2017-03-26] MEDS: HEPARIN SOD 5000 UNIT/0.5 ML CARP SQ SCH ×2 (08:43→21:52)
[2017-03-26] MEDS: AMLODIPINE BESYLATE 5 MG TAB PO SCH (09:00)
[2017-03-26] MEDS: ASPIRIN 81 MG ECTAB PO SCH (09:00)
[2017-03-26] MEDS: NEPHROCAPS PO SCH (09:00)
[2017-03-26] MEDS: CEROVITE ADV FORMULA TAB PO SCH (09:00)
[2017-03-26] MEDS ORDERED: INSULIN GLARGINE SOLOSTAR 100 UNITS/ML 3 ML PEN SC SCH (10:00)
--- NOTE | 2017-03-26 12:23 | Nephrology Progress Note ---
Nephrology Progress Note Date of Service Mar 26, 2017. Chief Complaint Follow-up for end-stage renal disease on hemodialysis. Subjective Ed was seen and examined in his room this morning. he is overall feeling well however his frustrated as his dialysis session got delayed little bit. Yesterday he had as some skin rash which was thought to be some allergic reaction to and anesthetics, it erythema seems to have faded. blood pressure, electrolyte and volume status stable. Review of Systems A complete review of systems was performed. Pertinent positives are noted above. All other systems are negative. Vital Signs Last 8 Hrs Date Time Temp Pulse Resp B/P (MAP) Pulse Ox O2 Delivery O2 Flow Rate FiO2 03/26/17 11:45 73 143/73 03/26/17 11:30 71 145/65 03/26/17 11:15 68 137/61 03/26/17 11:00 71 136/64 03/26/17 10:45 70 137/75 03/26/17 10:30 72 146/71 03/26/17 10:17 70 143/68 03/26/17 09:46 36.7 74 134/66 (88) 03/26/17 09:05 Room Air 03/26/17 08:00 Room Air 03/26/17 07:08 36.6 70 18 149/62 (91) 98 Room Air Last Recorded Weight Weight (Kilograms): 99.600 Physical Exam GENERAL: Elderly male, AAA x 3, not in any distress. NECK: Supple, no JVD. RESPIRATORY: Normal breathing efforts, no accessory muscle use, clear to auscultation bilaterally, no wheezes or rales. CARDIOVASCULAR: S1, S2 normal, rate rhythm regular. EXTREMITY: No lower extremity edema NEURO: speech fluent. PSYCHIATRY: Normal mood and judgment Family History No pertinent family history Negative for CKD / ESRD Social History Drug Use: none Marital Status: Housing Status: lives with family Occupation: retired . has Alzheimers and requires home health nursing. Patient is retired. Current smoker Laboratory Results Past 24 Hours 03/26/17 06:57 Test 03/25/17 14:03 03/25/17 16:47 03/25/17 20:23 03/26/17 06:57 Bedside Glucose 129 mg/dl (70-99) 165 mg/dl (70-99) 165 mg/dl (70-99) Anion Gap 12.0 mmol/L (3-11) Est Creatinine Clear Calc Drug Dose 9.8 ml/min Estimated GFR () 7.7 Estimated GFR (Non- 6.7 BUN/Creatinine Ratio 6.7 (10-20) Calcium Level 9.7 mg/dl (8.5-10.1) Test 03/26/17 07:45 03/26/17 12:02 Bedside Glucose 139 mg/dl (70-99) 124 mg/dl (70-99) Allergies Coded Allergies: No Known Allergies (Unverified , 03/18/17) Medications Current Inpatient Medications Medications (Trade) Dose Ordered Sig/Brennan Route Start Time Stop Time Status Last Admin Dose Admin Ondansetron HCl (Zofran Inj) 4 mg Q6H PRN IV 03/18/17 15:45 04/17/17 15:44 Amlodipine Besylate (Norvasc Tab) 5 mg QAM PO 03/19/17 09:00 04/18/17 08:59 03/25/17 07:35 5 MG Aspirin (Ecotrin Tab) 81 mg QAM PO 03/19/17 09:00 04/18/17 08:59 03/25/17 07:35 81 MG Lidocaine/ Prilocaine (Emla 2.5% Crm) 1 ea UD PRN EXT 03/18/17 15:45 04/17/17 15:44 Metoprolol Succinate (Toprol Xl Tab) 50 mg QPM PO 03/18/17 21:00 04/17/17 20:59 03/25/17 20:29 50 MG Multivitamins/ Minerals (Multivitamin W/ Minerals Tab) 1 tab DAILY PO 03/19/17 09:00 04/18/17 08:59 03/25/17 07:34 1 TAB Ranitidine HCl (zANTac TAB) 150 mg HS PO 03/18/17 21:00 04/17/17 20:59 03/25/17 20:26 150 MG Vitamin B Complex/ Vit C/Folic Acid (Nephrocaps) 1 cap DAILY PO 03/19/17 09:00 04/18/17 08:59 03/25/17 07:34 1 CAP Diclofenac Sodium (Voltaren 1% Top Gel) 1 appln QID EXT 03/18/17 17:00 04/17/17 16:59 03/25/17 20:23 1 APPLN Temazepam (Restoril Cap) 7.5 mg HS PRN PO 03/18/17 15:45 04/17/17 15:44 Insulin Aspart (novoLOG ASPART) SLIDING SCALE G... ACHS SC 03/18/17 21:00 04/17/17 20:59 03/26/17 08:41 2 UNITS Ciprofloxacin/ Dextrose 400 mg/ Prmx 200 ml @ 100 mls/hr Q24H IV 03/19/17 16:00 03/29/17 15:59 03/25/17 19:43 100 MLS/HR Glucose (Glucose 40% Gel) 15-30 GRAMS 15 GRAMS... UD PRN PO 03/18/17 18:15 04/17/17 18:14 Glucose (Glucose Chew Tab) 4-8 Tablets 4 Tabl... UD PRN PO 03/18/17 18:15 04/17/17 18:14 Dextrose (Dextrose 50% 50ML Syringe) 25-50ML OF 50% DW IV FOR... UD PRN IV 03/18/17 18:15 04/17/17 18:14 Glucagon (Glucagon Inj) 1 mg UD PRN SQ 03/18/17 18:15 04/17/17 18:14 Heparin Sodium (Porcine) (Heparin Sq 5000 Unit/0.5ml) 5,000 unit Q12 SQ 03/19/17 09:00 04/18/17 08:59 03/26/17 08:43 5,000 UNIT Atorvastatin Calcium (Lipitor Tab) 40 mg HS PO 03/19/17 21:00 04/17/17 20:59 03/25/17 20:24 40 MG Metronidazole 500 mg/Prmx 100 ml @ 100 mls/hr Q8H IV 03/19/17 00:00 03/29/17 00:00 03/26/17 08:37 100 MLS/HR Miscellaneous Information (Consult Glycemic Management Pharmacy) 1 ea UD PRN N/A 03/19/17 17:05 04/18/17 17:04 Amylase/Lipase/ Protease (Pancreaze 83209 Unit) 1 cap AC PO 03/24/17 16:30 04/23/17 16:29 03/26/17 05:59 1 CAP Diphenhydramine HCl (Benadryl Extra Strength Cream) 1 appln BID PRN EXT 03/26/17 01:00 04/25/17 00:59 03/26/17 01:43 1 APPLN Impression (1) ESRD on hemodialysis (2) Right sided abdominal pain (3) Diarrhea (4) Ischemic colitis (5) Hypertension (6) Diabetes mellitus Mr. Galeano was admitted to the hospital for evaluation of recurrent lower abdominal pain and diarrhea. Abdominal CT shows extensive atherosclerosis but no acute colitis. Surgical consultation has been requested. Stool cultures have been ordered. Patient is afebrile w/ normal WBC #. He does not have clinical signs of acute infection or sepsis at this time. He requires HD this evening due to hyperkalemia and metabolic acidosis Recommendations -- dialysis today for 4 hours with 3 K bath. -- Patient can be discharged after dialysis, he will go to his outpatient dialysis unit for next dialysis next Wednesday, dialysis unit notified. --continue on phosphate binder with meals and Nephrocaps --avoid IV fluid --Blood pressure remains acceptable. Continue current medical regimen --suggest discontinuing H2 valente and starting on the Protonix
[2017-03-26] MEDS ORDERED: DiphenhydrAMINE INJ 25 MG in SYRINGE 0 ML IV SCH (12:30)
[2017-03-26] MEDS ORDERED: DiphenhydrAMINE HCL 50 MG/ML VIAL IV ONE (13:00)
--- NOTE | 2017-03-26 13:40 | Pharmacy Progress Note ---
Glycemic: Assessment & Plan Date of Service Mar 26, 2017. Assessment & Plan The patient is currently receiving 0 units of insulin per day. BSGs ranging 129 - 165 mg/dl over the past 24hrs. * Basal insulin: None * Correctional Insulin: Novolog Correction per scale ACHS Goal Range: Low 140 mg/dL - High 180 mg/dL Correction Factor: 45 mg/dL/unit * Prandial insulin: Per carb ratio of 1 unit per 15 grams CHO consumed PLAN * BSGs are in range, however, starting to trend upward. The patient last received basal insulin on 03/18. * I have ordered a small dose of Lantus 5 units SQ this am to avoid development of hyperglycemia but patient has refused. * Continue current Novolog parameters * Please note that the plan above was derived based on current level of insulin resistance and hospital stress. These recommendations are appropriate for inpatient admission only. Plan of care upon discharge will need to be reassessed to avoid potential outpatient hypo/hyperglycemia.
[2017-03-26] MEDS ORDERED: DIPH25CA65 PO (14:30)
[2017-03-26] MEDS: CIPROFLOXACIN / D5W 400 MG in PREMIXED IN D5W 200 ML IV SCH (16:01)
[2017-03-26] MEDS ORDERED: NURSING VERBAL MED ORDER ONE ×2 (16:45→17:45)
--- NOTE | 2017-03-26 18:09 | Progress Note ---
Subjective Date of Service: Mar 26, 2017. Subjective Pt evaluation today including: conversation w/ patient, conversation w/ family , physical exam, lab review, review of inpatient medication list Problem List Medical Problems: (1) Right sided abdominal pain Status: Acute (2) Right sided abdominal pain Status: Acute Review of Systems Constitutional: No see HPI, No fever, No chills, No sweats, No weight loss, No weakness, No fatigue, No problem reported Eyes: No see HPI, No worsening of vision, No eye pain, No redness, No discharge , No diplopia, No problem reported ENT: No see HPI, No hearing loss, No unusual epistaxis, No nasal symptoms, No sore throat, No tinnitus, No dental problems, No trouble swallowing, No problem reported Respiratory: No see HPI, No cough, No sputum, No wheezing, No shortness of breath, No dyspnea on exertion, No dyspnea at rest, No hemoptysis, No problem reported Cardiac: No see HPI, No chest pain, No orthopnea, No PND, No edema, No claudication, No palpitations, No problem reported Abdomen: No see HPI, No pain, No nausea, No vomiting, No diarrhea, No constipation, No GI bleeding, No problem reported Musculoskeletal: No see HPI, No joint pain, No muscle pain, No swelling, No calf pain, No problem reported Neurologic: No see HPI, No memory loss, No paralysis, No weakness, No numbness/ tingling, No vertigo, No balance problems, No problem reported Psychiatric: No see HPI, No depression symptoms, No anhedonism, No anxiety, No insomnia, No substance abuse, No problem reported Heme: No see HPI, No abnormal bleeding/bruising, No clotting problems, No swollen lymph nodes, No night sweats, No problem reported Endo: No see HPI, No fatigue, No excessive thirst, No excessive urination, No problem reported Skin: + rash, + itch, No see HPI, No new/changing skin lesions, No color change , No bleeding, No problem reported Objective Vital Signs Date Time Temp Pulse Resp B/P (MAP) Pulse Ox O2 Delivery O2 Flow Rate FiO2 03/26/17 16:12 36.7 77 18 123/65 (84) 99 Room Air 03/26/17 15:30 Room Air 03/26/17 13:55 36.8 74 133/65 (87) 03/26/17 13:45 74 107/35 03/26/17 13:30 65 106/49 03/26/17 13:15 70 102/52 03/26/17 13:00 75 105/51 03/26/17 12:45 73 110/47 03/26/17 12:30 73 102/51 03/26/17 12:15 81 111/62 03/26/17 12:00 74 124/54 03/26/17 11:45 73 143/73 03/26/17 11:30 71 145/65 03/26/17 11:15 68 137/61 03/26/17 11:00 71 136/64 03/26/17 10:45 70 137/75 03/26/17 10:30 72 146/71 03/26/17 10:17 70 143/68 03/26/17 09:46 36.7 74 134/66 (88) 03/26/17 09:05 Room Air 03/26/17 08:00 Room Air 03/26/17 07:08 36.6 70 18 149/62 (91) 98 Room Air 03/26/17 00:00 Room Air 03/25/17 23:16 36.7 74 18 146/70 (95) 97 2.0 03/25/17 20:00 36.8 73 18 157/71 (99) 96 Room Air 03/25/17 20:00 Room Air Physical Exam General Appearance: WD/WN, no apparent distress Eyes: normal inspection, EOMI ENT: normal ENT inspection, hearing grossly normal Neck: supple Respiratory/Chest: chest non-tender, lungs clear, normal breath sounds, no respiratory distress, no accessory muscle use Cardiovascular: regular rate, rhythm, no edema, no gallop, no JVD, no murmur Abdomen: normal bowel sounds, non tender, soft, no organomegaly Extremities: normal range of motion, non-tender, normal inspection, no pedal edema Neurologic/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: 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, no motor/sensory deficits, alert, normal mood/affect, oriented x 3 Skin: normal color, warm/dry, no rash Laboratory Results Last 24 Hours Test 03/25/17 20:23 03/26/17 06:57 03/26/17 07:45 03/26/17 12:02 Bedside Glucose 165 mg/dl 139 mg/dl 124 mg/dl Sodium Level 139 mmol/L Potassium Level 4.1 mmol/L Chloride Level 105 mmol/L Carbon Dioxide Level 22 mmol/L Anion Gap 12.0 mmol/L Blood Urea Nitrogen 48 mg/dl Creatinine 7.10 mg/dl Est Creatinine Clear Calc Drug Dose 9.8 ml/min Estimated GFR () 7.7 Estimated GFR (Non- 6.7 BUN/Creatinine Ratio 6.7 Random Glucose 141 mg/dl Calcium Level 9.7 mg/dl Test 03/26/17 16:53 Bedside Glucose 243 mg/dl Assessment and Plan 81 years old man on hemodialysis presented with recurrent abdominal pain and chronic diarrhea, diarrhea is mainly postprandial. 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 Some biopsies were taking Patient abdominal pain improved, Generalized rash and itching all over his body that started yesterday at high Received Benadryl 1 dose of hydrocortisone IV Discharge was held Pancreatic enzymes stopped as potentially it might have caused that, other possibility could be the medicine from anaesthesia Anesthesia another trial of pancreatic enzymes in 2 weeks if they wish to started a trial of pancreatic enzyme for his postprandial diarrhea End-stage renal disease, continue dialysis Type 2 diabetes on insulin; Continue SSI Deep venous thrombosis prophylaxis, heparin subQ. Hyperlipidemia, continue his Lipitor. Hypertension, continue his home medications and follow. 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 Discharge planning: uncertain
[2017-03-26] MEDS ORDERED: HYDROCORTISONE IV 100 MG in SYRINGE 0 ML IV ONE (18:15)
[2017-03-26] MEDS: RANITIDINE HCL 150 MG TAB PO SCH (21:44)
[2017-03-26] MEDS: METOPROLOL SUCC 50MG EXT REL TAB PO SCH (21:45)
[2017-03-26] MEDS: ATORVASTATIN 20 MG TAB PO SCH (21:45)
[2017-03-27] MEDS ORDERED: NURSING VERBAL MED ORDER ONE ×2 (01:15→11:45)
[2017-03-27] MEDS ORDERED: DiphenhydrAMINE HCL 50 MG/ML VIAL IV ONE (01:30)
[2017-03-27] MEDS: METRONIDAZOLE / NSS 500 MG in PREMIXED NSS 100 ML IV SCH ×2 (01:40→08:09)
[2017-03-27 07:24] VITALS: BP 111/67; PULSE 78; TEMP 36.5; O2SAT 95
[2017-03-27 07:41] LABS: HEMATOCRIT 29.1 % (42-52); MEAN CELL VOLUME 90.7 fL (80-100); MEAN CORPUSCULAR HEMOGLOBIN 31.2 pg (25-34); MEAN CORPUSCULAR HGB CONC 34.4 g/dl (32-36); MEAN PLATELET VOLUME 11.5 fL (7.4-10.4); PLATELET COUNT 244 K/uL (130-400); RED BLOOD COUNT 3.21 M/uL (4.7-6.1); WHITE BLOOD COUNT 10.04 K/uL (4.8-10.8)
[2017-03-27] MEDS: DICLOFENAC SOD 1% GEL 100 GM TUBE EXT SCH ×2 (08:10→13:00)
[2017-03-27] MEDS: CEROVITE ADV FORMULA TAB PO SCH (08:10)
[2017-03-27] MEDS: NEPHROCAPS PO SCH (08:10)
[2017-03-27] MEDS: AMLODIPINE BESYLATE 5 MG TAB PO SCH (08:10)
[2017-03-27] MEDS: ASPIRIN 81 MG ECTAB PO SCH (08:10)
[2017-03-27 08:22] LABS: ALB/GLOB RATIO 1.1 (0.9-2); BUN/CREATININE RATIO 6.8 (10-20); CALCIUM 8.9 mg/dl (8.5-10.1); CREATININE 6.2 mg/dl (0.60-1.40); MAGNESIUM 1.9 mg/dl (1.8-2.4); POTASSIUM 3.8 mmol/L (3.5-5.1)
[2017-03-27] MEDS: INSULIN ASPART 100 UNITS/ML 3 ML PEN SC SCH ×2 (08:32→12:21)
[2017-03-27] MEDS: HEPARIN SOD 5000 UNIT/0.5 ML CARP SQ SCH (08:33)
[2017-03-27] MEDS ORDERED: INSULIN GLARGINE SOLOSTAR 100 UNITS/ML 3 ML PEN SC SCH (10:00)
--- NOTE | 2017-03-27 10:51 | Nephrology Progress Note ---
Nephrology Progress Note Date of Service Mar 27, 2017. Chief Complaint Provide inpatient HD and assist with the medical management of this patient w/ ESRD Subjective Mr. Galeano was seen & examined in his hospital room this morning. He was dialyzed yesterday for 3.6 hours w/ ~ 2 L UF. HD was shortened due to leg cramping and diffuse pruritic rash. Mr. Galeano was given Benadryl. He c/o persistent rash but notes that it is mildly improved. His abdominal pain is subjectively improved and he is now tolerating a regular diet. Review of Systems Constitutional: No fever Cardiovascular: No chest pain Respiratory: No dyspnea at rest Abdomen: No pain, No nausea, No vomiting Extremities: No leg edema A complete review of systems was performed. Pertinent positives are noted above. All other systems are negative. Vital Signs Last 8 Hrs Date Time Temp Pulse Resp B/P (MAP) Pulse Ox O2 Delivery O2 Flow Rate FiO2 03/27/17 08:00 Room Air 03/27/17 07:24 36.5 78 20 111/67 (82) 95 Room Air Last Recorded Weight Weight (Kilograms): 98.200 Physical Exam General Appearance: no apparent distress Head: normocephalic, atraumatic Eyes: PERRL Neck: no adenopathy Respiratory/Chest: lungs clear Cardiovascular: regular rate, rhythm Abdomen/GI: normal bowel sounds, non tender, soft Extremities/Musculoskelatal: no calf tenderness, no pedal edema, + pertinent finding (AVF + bruit) Neurologic/Psych: alert Family History No pertinent family history Negative for CKD / ESRD Social History Drug Use: none Marital Status: Housing Status: lives with family Occupation: retired . has Alzheimers and requires home health nursing. Patient is retired. Current smoker Laboratory Results Past 24 Hours 03/27/17 07:07 03/27/17 07:07 Test 03/26/17 12:02 03/26/17 16:53 03/26/17 20:36 03/27/17 07:07 Bedside Glucose 124 mg/dl (70-99) 243 mg/dl (70-99) 78 mg/dl (70-99) Red Blood Count 3.21 M/uL (4.7-6.1) Mean Corpuscular Volume 90.7 fL (80-100) Mean Corpuscular Hemoglobin 31.2 pg (25-34) Mean Corpuscular Hemoglobin Concent 34.4 g/dl (32-36) RDW Standard Deviation 52.2 fL (36.4-46.3) RDW Coefficient of Variation 15.7 % (11.5-14.5) Mean Platelet Volume 11.5 fL (7.4-10.4) Anion Gap 12.0 mmol/L (3-11) Est Creatinine Clear Calc Drug Dose 11.2 ml/min Estimated GFR () 9.1 Estimated GFR (Non- 7.9 BUN/Creatinine Ratio 6.8 (10-20) Calcium Level 8.9 mg/dl (8.5-10.1) Magnesium Level 1.9 mg/dl (1.8-2.4) Total Bilirubin 0.3 mg/dl (0.2-1) Aspartate Amino Transf (AST/SGOT) 36 U/L (15-37) Alanine Aminotransferase (ALT/SGPT) 49 U/L (12-78) Alkaline Phosphatase 82 U/L (45-117) Total Protein 6.4 gm/dl (6.4-8.2) Albumin 3.4 gm/dl (3.4-5.0) Globulin 3.0 gm/dl (2.5-4.0) Albumin/Globulin Ratio 1.1 (0.9-2) Test 03/27/17 07:40 Bedside Glucose 164 mg/dl (70-99) Allergies Coded Allergies: No Known Allergies (Unverified , 03/18/17) Medications Current Inpatient Medications Medications (Trade) Dose Ordered Sig/Brennan Route Start Time Stop Time Status Last Admin Dose Admin Ondansetron HCl (Zofran Inj) 4 mg Q6H PRN IV 03/18/17 15:45 04/17/17 15:44 Amlodipine Besylate (Norvasc Tab) 5 mg QAM PO 03/19/17 09:00 04/18/17 08:59 03/27/17 08:10 5 MG Aspirin (Ecotrin Tab) 81 mg QAM PO 03/19/17 09:00 04/18/17 08:59 03/27/17 08:10 81 MG Lidocaine/ Prilocaine (Emla 2.5% Crm) 1 ea UD PRN EXT 03/18/17 15:45 04/17/17 15:44 Metoprolol Succinate (Toprol Xl Tab) 50 mg QPM PO 03/18/17 21:00 04/17/17 20:59 03/26/17 21:45 50 MG Multivitamins/ Minerals (Multivitamin W/ Minerals Tab) 1 tab DAILY PO 03/19/17 09:00 04/18/17 08:59 03/27/17 08:10 1 TAB Ranitidine HCl (zANTac TAB) 150 mg HS PO 03/18/17 21:00 04/17/17 20:59 03/26/17 21:44 150 MG Vitamin B Complex/ Vit C/Folic Acid (Nephrocaps) 1 cap DAILY PO 03/19/17 09:00 04/18/17 08:59 03/27/17 08:10 1 CAP Diclofenac Sodium (Voltaren 1% Top Gel) 1 appln QID EXT 03/18/17 17:00 04/17/17 16:59 03/25/17 20:23 1 APPLN Temazepam (Restoril Cap) 7.5 mg HS PRN PO 03/18/17 15:45 04/17/17 15:44 Insulin Aspart (novoLOG ASPART) SLIDING SCALE G... ACHS SC 03/18/17 21:00 04/17/17 20:59 03/27/17 08:32 2 UNITS Ciprofloxacin/ Dextrose 400 mg/ Prmx 200 ml @ 100 mls/hr Q24H IV 03/19/17 16:00 03/29/17 15:59 03/26/17 16:01 100 MLS/HR Glucose (Glucose 40% Gel) 15-30 GRAMS 15 GRAMS... UD PRN PO 03/18/17 18:15 04/17/17 18:14 Glucose (Glucose Chew Tab) 4-8 Tablets 4 Tabl... UD PRN PO 03/18/17 18:15 04/17/17 18:14 Dextrose (Dextrose 50% 50ML Syringe) 25-50ML OF 50% DW IV FOR... UD PRN IV 03/18/17 18:15 04/17/17 18:14 Glucagon (Glucagon Inj) 1 mg UD PRN SQ 03/18/17 18:15 04/17/17 18:14 Heparin Sodium (Porcine) (Heparin Sq 5000 Unit/0.5ml) 5,000 unit Q12 SQ 03/19/17 09:00 04/18/17 08:59 03/27/17 08:33 5,000 UNIT Atorvastatin Calcium (Lipitor Tab) 40 mg HS PO 03/19/17 21:00 04/17/17 20:59 03/26/17 21:45 40 MG Metronidazole 500 mg/Prmx 100 ml @ 100 mls/hr Q8H IV 03/19/17 00:00 03/29/17 00:00 03/27/17 08:09 100 MLS/HR Miscellaneous Information (Consult Glycemic Management Pharmacy) 1 ea UD PRN N/A 03/19/17 17:05 04/18/17 17:04 Diphenhydramine HCl (Benadryl Extra Strength Cream) 1 appln BID PRN EXT 03/26/17 01:00 04/25/17 00:59 03/26/17 01:43 1 APPLN Impression (1) ESRD on hemodialysis (2) Right sided abdominal pain (3) Diarrhea (4) Ischemic colitis (5) Hypertension (6) Diabetes mellitus Mr. Galeano was admitted to the hospital for evaluation of recurrent lower abdominal pain and diarrhea. Abdominal CT shows extensive atherosclerosis but no acute colitis. EGD revealed a small gastric ulcer w/ visible vessel that was bleeding. The vessel was clipped. Colonoscopy revealed only polyps. Patient has had RUQ abdominal discomfort. HIDA scan was negative for obstruction. Patient is currently being treated for pancreatic insufficiency. Mr. Galeano has developed a diffuse pruritic rash. Recommendations END STAGE RENAL DISEASE: -- Patient was dialyzed yesterday. Volume status and electrolyte balance are currently acceptable. No acute indication for HD today. -- Will reassess need for HD again in am HYPERTENSION: -- Blood pressure remains acceptable. Continue current medical regimen ANEMIA: -- Hgb currently above target range of 10 - 11. Hold EDUARDO and monitor H&H GI: -- On pancreatic enzyme replacement therapy ID: -- Stool cultures are negative -- Consider stopping antibiotic therapy given patient's new erythematous rash
[2017-03-27] MEDS ORDERED: PRED10TA PO (12:51)
[2017-03-27] MEDS ORDERED: HYDR1OIN EXT (12:51)
--- NOTE | 2017-03-27 12:59 | Discharge Summary ---
Discharge Summary Date of Service Mar 27, 2017. Discharge Summary Admission Date: Mar 18, 2017 at 15:47 Discharge Date: Mar 27, 2017 Discharge Disposition: Home Principal Diagnosis: abdominal pain Problems/Secondary Diagnoses: Abdominal pain and postprandial diarrhea Generalized rash and itching all over his body End-stage renal disease, on H. dialysis Type 2 diabetes on insulin Hyperlipidemia Hypertension Medication Reconciliation New Medications: Diphenhydramine Hcl (Benadryl Allergy) 25 Mg Cap 1 CAP PO every 12 hours PRN for itching for 30 Days, #10 CAP 1 Refill Prednisone Tab (Prednisone) 10 Mg Tab 10 MG PO DIRECTED for 3 Days, #6 TAB Take 3 tablets by mouth on March 28 Then 2 tablets by mouth on March 29 Then 1 tablet on March 30 Then stop Hydrocortisone (Topical) (Hydrocortisone) 1 % Oin 1 APPLN EXT BID for 3 Days, #120 GM use on body rash for 3 days twice a day as needed for itching do not use on the face Continued Medications: Amlodipine Besylate (Norvasc) 5 Mg Tab 5 MG PO QAM, TAB Aspirin (Aspir-81) 81 Mg Tab 81 MG PO QAM Insulin Aspart (Novolog Flexpen) 100 Units/Ml Inj 18 UNITS SC QAM WITH BREAKFAST Insulin Aspart (Novolog Flexpen) 100 Units/Ml Inj 19 UNITS SQ LUNCH Insulin Aspart (Novolog Flexpen) 100 Units/Ml Inj 22 UNITS SQ QPM EVENING MEAL Insulin Glargine (Lantus Solostar) 100 Unit/Ml Inj 30-35 UNITS SQ HS, PEN Lidocaine-Prilocaine (Dopldfxdp-Lckjwncphu-Mmyc 2.5-2.5 %) 1 Cre Cre 1 APPLN TOP UD APPLY TO AVF 20 MINUTES PRIOR TO HD Metoprolol Succinate (Toprol Xl) 50 Mg Tabcr 50 MG PO QPM, TAB Ocuvite Preservision (Ocuvite Preservision) 1 Tab Tab 2 TAB PO DAILY, TAB Ranitidine (Zantac) 150 Mg Tab 150 MG PO HS, TAB Sodium Bicarbonate (Antacid) (Sodium Bicarbonate) 650 Mg Tab 1 TAB PO BIDM, 5 Refills Vitamin B Cmplx/Vitc/Folic Ac (Nephrocaps) Cap 1 CAP PO DAILY for 90 Days, #90 CAP 3 Refills ON DIALYSIS DAYS Discontinued Medications: Atorvastatin (Atorvastatin Calcium) 20 Mg Tab 20 MG PO HS Referrals At Discharge Follow up Referrals: Surgery Referral - Within 2 Weeks with Raymundo Ambrose D.O. Discharge Exam Review of Systems: Constitutional: No fever, No chills, No sweats, No weight loss, No weakness , No fatigue, No problem reported Eyes: No worsening of vision, No eye pain, No redness, No discharge, No diplopia, No problem reported ENT: No hearing loss, No unusual epistaxis, No nasal symptoms, No sore throat, No tinnitus, No dental problems, No trouble swallowing, No problem reported Respiratory: No cough, No sputum, No wheezing, No shortness of breath, No dyspnea on exertion, No dyspnea at rest, No hemoptysis, No problem reported Cardiovascular: No chest pain, No orthopnea, No PND, No edema, No claudication, No palpitations, No problem reported Abdomen: No pain, No nausea, No vomiting, No diarrhea, No constipation, No GI bleeding, No problem reported Musculoskeletal: No joint pain, No muscle pain, No swelling, No calf pain, No problem reported Neurologic: No memory loss, No paralysis, No weakness, No numbness/tingling , No vertigo, No balance problems, No problem reported Psychiatric: No depression symptoms, No anhedonism, No anxiety, No insomnia , No substance abuse, No problem reported Endocrine: No fatigue, No excessive thirst, No excessive urination, No problem reported Hematologic / Lymphatic: No abnormal bleeding/bruising, No clotting problems , No swollen lymph nodes, No night sweats, No problem reported Integumentary: + rash, + itch Physical Exam: General Appearance: WD/WN, no apparent distress Eyes: normal inspection, EOMI ENT: normal ENT inspection, hearing grossly normal Neck: supple Respiratory/Chest: chest non-tender, lungs clear, normal breath sounds, no respiratory distress, no accessory muscle use Cardiovascular: regular rate, rhythm, no edema, no gallop, no JVD, no murmur , normal peripheral pulses Abdomen / GI: normal bowel sounds, non tender, soft, no organomegaly, no pulsatile mass Extremities: normal inspection, no calf tenderness, normal capillary refill , no pedal edema, normal range of motion Neurologic/Psychiatric: stock shaper II-XII nml as tested, no motor/sensory deficits , alert, normal mood/affect, normal reflexes Skin: + rash (pain, improving on torso and make) Hospital Course 81 years old man on hemodialysis presented with recurrent abdominal pain and chronic diarrhea, diarrhea is mainly postprandial. For his Abdominal pain and postprandial diarrhea DD includes chronic ischemic colitis, bacterial overgrowth, biliary dyskinesia ( doubted by surgery ), ciliac, lactose intolerance , Crohn's, irritable bowel syndrome-diarrhea, maldigestion due to bile acid malabsorption or pancreatic exocrine insufficiency HIDA without cystic obstruction but EF was 17%, U/S showed no cholelithiasis, based on discussion between myself GI and surgery we decided to postpone any surgical intervention for his gallbladder since there are no stones and even though ejection fraction is decreased still it is 17% CT angiography was was done and was suggestive to vascular disease S/P EGD showed 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 Some biopsies were taking Patient abdominal pain improved, which supports the diagnosis of ischemic colitis for post prandial diarrhea, he was giving a trial of pancreatic enzymes but then developed Generalized rash and itching all over his body, which also could be secondary to the anesthesia or sedation medicine that he took for the colonoscopy Received Benadryl 1 dose of hydrocortisone IV Discharge was held for 24 hours Pancreatic enzymes stopped as potentially it might have caused that, other possibility could be the medicine from anaesthesia Today the rash is better and he was giving hydrocortisone cream Benadryl and tapering dose of prednisone for only 3 days due to his diabetes Rash doesn't improve he was just instructed to go to his primary care physician started a trial of pancreatic enzyme for his postprandial diarrhea For his End-stage renal disease, he continued dialysis while he was inpatient, adaptive physical education specialist was consulted For his Type 2 diabetes on insulin; he was started on SSI Finally he was found today stable for discharge results of his CAT scan is attached to He will follow-up with surgery and GI within the next 1-2 weeks CTA abdomen results 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 Total Time Spent: Greater than 30 minutes This includes examination of the patient, discharge planning, medication reconciliation, and communication with other providers. Discharge Instructions Please refer to the electronic Patient Visit Report (Discharge Instructions) for additional information.
[2017-03-27 13:20] VITALS: BP 111/67; PULSE 78; TEMP 36.5; O2SAT 95
[2017-03-27] MEDS ORDERED: HYDROCORTISONE 1% CR 30 GM TUBE EXT SCH (21:00)
[2017-04-01] MEDS ORDERED: METO-217 PO (11:17)
[2017-04-06] MEDS ORDERED: AMLO5TAB2 PO (11:02)
[2017-04-06] MEDS ORDERED: SODI650T8 PO (11:03)
[2017-04-06] MEDS ORDERED: ASPI-232 PO (11:17)
[2017-04-06] MEDS ORDERED: NVLGI/PEN SC (11:17)
[2017-04-06] MEDS ORDERED: NVLGI/PEN SQ ×2 (11:17)
[2017-04-06] MEDS ORDERED: MULT-190 PO (11:44)
[2017-04-06] MEDS ORDERED: LIDO1CRE58 TOP (13:51)
[2017-04-06] MEDS ORDERED: B-CO1CAP17 PO (13:51)
[2017-04-06] MEDS ORDERED: ZNTT/150 PO (13:51)
== END 2017-03-27 15:16 | disposition home or self-care (01) | DRG 393 ==
LOC: C.EDB 09:39 → C.MS2W 15:47 → ENRESERV 16:09
PROVIDERS: ADMIT Family Medicine; ATTEND Internal Medicine
PROC: 0W3P8ZZ Control Bleeding in Gastrointestinal Tract, Via Natural or Artificial Opening Endoscopic (ICD-10-PCS; principal; 2017-03-22 13:37)
PROC: 0DBL8ZX Excision of Transverse Colon, Via Natural or Artificial Opening Endoscopic, Diagnostic (ICD-10-PCS; 2017-03-25)
PROC: 0DBP8ZX Excision of Rectum, Via Natural or Artificial Opening Endoscopic, Diagnostic (ICD-10-PCS; 2017-03-25)
PROC: 0DBQ8ZX Excision of Anus, Via Natural or Artificial Opening Endoscopic, Diagnostic (ICD-10-PCS; 2017-03-25)
DX: K55.9 Vascular disorder of intestine, unspecified (principal); N18.6 End stage renal disease; K25.0 Acute gastric ulcer with hemorrhage; I12.0 Hypertensive chronic kidney disease with stage 5 chronic kidney disease or end stage renal disease; R10.31 Right lower quadrant pain; R19.7 Diarrhea, unspecified; E11.22 Type 2 diabetes mellitus with diabetic chronic kidney disease; Z99.2 Dependence on renal dialysis; E11.40 Type 2 diabetes mellitus with diabetic neuropathy, unspecified; E11.319 Type 2 diabetes mellitus with unspecified diabetic retinopathy without macular edema; E78.5 Hyperlipidemia, unspecified; D64.9 Anemia, unspecified; F17.290 Nicotine dependence, other tobacco product, uncomplicated; M45.9 Ankylosing spondylitis of unspecified sites in spine; K21.9 Gastro-esophageal reflux disease without esophagitis; E78.00 Pure hypercholesterolemia, unspecified; E07.9 Disorder of thyroid, unspecified; M54.12 Radiculopathy, cervical region; M75.102 Unspecified rotator cuff tear or rupture of left shoulder, not specified as traumatic; Z87.39 Personal history of other diseases of the musculoskeletal system and connective tissue; Z86.79 Personal history of other diseases of the circulatory system; Z79.899 Other long term (current) drug therapy; Z79.82 Long term (current) use of aspirin; Z79.4 Long term (current) use of insulin; R21 Rash and other nonspecific skin eruption; L29.9 Pruritus, unspecified

== ENCOUNTER 2017-04-01 21:48 | Emergency (ER) | payer OTHER ==
[~2017-04-01] VITALS: Ht 175.3 cm; Wt 98.0 kg
[~2017-04-01 21:48] MED LIST changes: -AMOX1TAB42 PO; -B-COCAP2 PO; +DIPH25CA65 PO; +HYDR1OIN EXT; -LIDO1CRE24 TOP; -LPT/20 PO; +METO-217 PO; -OXYC-57 PO
[2017-04-01 21:54] VITALS: TEMP 36.6; Ht 175.3 cm; Wt 98.0 kg
[2017-04-01] MEDS ORDERED: HYDROCODONE/ACETAMOPHEN 5/325MG TAB PO STA (22:05)
--- NOTE | 2017-04-01 22:11 | EMERGENCY ROOM VISIT NOTE ---
History Report prepared by Devon: Bhavesh Ledesma Under the Supervision of: Dr. Randy Ferguson D.O. First contact with patient: 22:00 Chief Complaint: DIARRHEA Stated Complaint: DIARRHEA, NOT FEELING WELL AT ALL History of Present Illness The patient is a 81 year old male who presents to the Emergency Room with complaints of left shoulder pain that began this afternoon. He rates his pain a 9/10 in severity. He received dialysis this morning and accidently unlocked his wheelchair instead of locking it. He then fell onto his left shoulder. His pain worsens with movement. He denies any loss of consciousness or head injury. He states that his dialysis graft in his left forearm did not get damaged. Source of History: patient Onset: this afternoon Position: other (Left shoulder) Symptom Intensity: 9/10 Quality: ache Timing: constant Modifying Factors (Worsening): movement Associated Symptoms: No LOC, No headache Note: He denies any other symptoms. Review of Systems See HPI for pertinent positives and negatives. A total of ten systems were reviewed and were otherwise negative. 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 (4) Hypertension (5) Ischemic colitis Family History No pertinent family history Social History Smoking Status: Current Every Day Smoker Alcohol Use: occasionally Drug Use: none Marital Status: Occupation Status: retired Current/Historical Medications Scheduled Amlodipine Besylate (Norvasc), 5 MG PO QAM Aspirin (Aspir-81), 81 MG PO QAM Hydrocortisone (Topical) (Hydrocortisone), 1 APPLN EXT BID Insulin Aspart (Novolog Flexpen), 18 UNITS SC QAM Insulin Aspart (Novolog Flexpen), 19 UNITS SQ LUNCH Insulin Aspart (Novolog Flexpen), 22 UNITS SQ QPM Insulin Glargine (Lantus Solostar), 30-35 UNITS SQ HS Lidocaine-Prilocaine (Pixdqhzul-Rwllkopuls-Chws 2.5-2.5 %), 1 APPLN TOP UD Metoprolol Succinate (Toprol Xl), 50 MG PO QPM Ocuvite Preservision (Ocuvite Preservision), 2 TAB PO DAILY Ranitidine (Zantac), 150 MG PO HS Sodium Bicarbonate (Antacid) (Sodium Bicarbonate), 1 TAB PO BIDM Vitamin B Cmplx/Vitc/Folic Ac (Nephrocaps), 1 CAP PO DAILY Scheduled PRN Diphenhydramine Hcl (Benadryl Allergy), 1 CAP PO every 12 hours PRN for itching Allergies Coded Allergies: No Known Allergies (Unverified , 03/18/17) Physical Exam Vital Signs Date Time Temp Pulse Resp B/P (MAP) Pulse Ox O2 Delivery O2 Flow Rate FiO2 04/01/17 21:54 36.6 85 18 118/61 99 Room Air Physical Exam GENERAL: Awake, alert, well-appearing, in no distress HENT: Normocephalic, atraumatic. Oropharynx unremarkable. EYES: Normal conjunctiva. Sclera non-icteric. NECK: Supple. No nuchal rigidity. FROM. No JVD. RESPIRATORY: Clear to auscultation. CARDIAC: Regular rate, normal rhythm. Extremities warm and well perfused. Pulses equal. ABDOMEN: Soft, non-distended. No tenderness to palpation. No rebound or guarding. No masses. RECTAL: Deferred. MUSCULOSKELETAL: Chest examination reveals no tenderness. The back is symmetrical on inspection without obvious abnormality. There is no CVA tenderness to palpation. No joint edema. LOWER EXTREMITIES: Calves are equal size bilaterally and non-tender. No edema. No discoloration. UPPER EXTREMITIES: Tenderness to the proximal humerus with decreased range of motion to the left upper extremity. AV graft in place in the left forearm with good thrill. N/V intact distally. NEURO: Normal sensorium. No sensory or motor deficits noted. SKIN: No rash or jaundice noted. Medical Decision & Procedures ER Provider Diagnostic Interpretation: Radiology results as stated below per my review: 2 VIEW LEFT SHOULDER X-RAY: Non-displaced proximal humeral fracture. There is an area of sclerosis in the mid clavicle, but no obvious fracture. Per me. Medications Administered Medications (Trade) Dose Ordered Sig/Brennan Route Start Time Stop Time Status Last Admin Dose Admin Acetaminophen/ Hydrocodone Bitart (Hendrix 5/325 Tab) 1 tab NOW STAT PO 04/01/17 22:05 04/01/17 22:07 DC 04/01/17 22:09 1 TAB ED Course 2199: The patient was evaluated in room B4B. A complete history and physical exam was performed. 2204: Ordered Hydrocodone Bitart/ Acetaminophen 1 tab PO 2306: I reevaluated the patient. Discussed results and discharge instructions: He verbalized understanding and agreement. The patient is ready for discharge. Medical Decision Differential diagnoses include sprain, strain, contusion, dislocation, and fracture. Patient was found to have a nondisplaced fracture of the proximal humerus. Patient was given opiates in the emergency department he was also placed in a arm sling. Patient has had chronic diarrhea and was admitted and was in the hospital for 10 days and reportedly has had diarrhea again he did get dialysis today and after dialysis he had fallen. Patient is having issues with follow- up with his primary care physician I've asked case management to ensure strict follow-up. Patient reportedly has seen doctors Yaya Bal from orthopedics in the past and will likely return to them for further evaluation. Medication Reconcilliation Current Medication List: was personally reviewed by me Blood Pressure Screening Patient's blood pressure: Normal blood pressure Blood pressure disposition: Did not require urgent referral Impression Primary Impression: Proximal humeral fracture Scribe Attestation The scribe's documentation has been prepared under my direction and personally reviewed by me in its entirety. I confirm that the note above accurately reflects all work, treatment, procedures, and medical decision making performed by me. Departure Information Dispostion Home / Self-Care Prescriptions Hydrocodone/Acetaminophen 5MG/325MG (Hendrix 5MG/325MG) Tab 1 TABLET PO Q6H Y for Pain for 5 Days, #10 TAB Prov: Randy Ferguson, DO 04/01/17 Referrals Reji Cameron M.D. (PCP) Ned Javier M.D. Forms HOME CARE DOCUMENTATION FORM, IMPORTANT VISIT INFORMATION, WORK / SCHOOL INSTRUCTIONS Patient Instructions ED Fx Upper Ext, My [facility] Additional Instructions F/u with ortho this week; leave arm in sling; case management to help with referrals
[2017-04-01 23:07] VITALS: BP 107/62; PULSE 84; O2SAT 96
[2017-04-01] MEDS ORDERED: HYDR-5688 PO (23:11)
--- NOTE | 2017-04-01 23:19 | DIAGNOSTIC IMAGING REPORT ---
LEFT SHOULDER 2 VIEWS HISTORY: Left shoulder pain COMPARISON: Left shoulder 02/05/2017. FINDINGS: There is no fracture or dislocation. Soft tissues are unremarkable. No radiopaque foreign bodies. The bones are osteopenic. Mild degenerative changes within the acromioclavicular and glenohumeral joints. Punctate calcification at the supraspinatus consistent with calcific tendinitis. This remains unchanged. IMPRESSION: No fracture or dislocation within the left shoulder. Electronically signed by: Thom Michelle M.D. 04/01/2017 11:18 PM Dictated Date/Time: 04/01/2017 11:17 PM
[2017-04-01] MEDS ORDERED: NORCO 5/325MG HOME PACK PO ONE (23:30)
[2017-04-06] MEDS ORDERED: AMLO5TAB2 PO (11:02)
[2017-04-06] MEDS ORDERED: SODI650T8 PO (11:03)
[2017-04-06] MEDS ORDERED: ASPI-232 PO (11:17)
[2017-04-06] MEDS ORDERED: NVLGI/PEN SC (11:17)
[2017-04-06] MEDS ORDERED: NVLGI/PEN SQ ×2 (11:17)
[2017-04-06] MEDS ORDERED: MULT-190 PO (11:44)
[2017-04-06] MEDS ORDERED: LIDO1CRE58 TOP (13:51)
[2017-04-06] MEDS ORDERED: B-CO1CAP17 PO (13:51)
[2017-04-06] MEDS ORDERED: ZNTT/150 PO (13:51)
== END 2017-04-01 23:37 | disposition home or self-care (01) ==
LOC: C.EDB 21:51
DX: S42.202A Unspecified fracture of upper end of left humerus, initial encounter for closed fracture (principal); X58.XXXA Exposure to other specified factors, initial encounter; E11.9 Type 2 diabetes mellitus without complications; N18.6 End stage renal disease; Z99.2 Dependence on renal dialysis; I10 Essential (primary) hypertension; K55.9 Vascular disorder of intestine, unspecified; F17.200 Nicotine dependence, unspecified, uncomplicated; Z79.82 Long term (current) use of aspirin; Z79.4 Long term (current) use of insulin

== ENCOUNTER 2017-04-06 20:50 | Inpatient (IN) | payer OTHER ==
[~2017-04-06] VITALS: Ht 175.3 cm; Wt 111.0 kg
[~2017-04-06 20:50] MED LIST changes: +AMLO5TAB2 PO; +ASPI-232 PO; +B-CO1CAP17 PO; +HYDR-5688 PO; +LIDO1CRE58 TOP; +MULT-190 PO; +NVLGI/PEN SC; +NVLGI/PEN SQ; +SODI650T8 PO; +ZNTT/150 PO
--- NOTE | 2017-04-06 21:36 | EMERGENCY ROOM VISIT NOTE ---
History Report prepared by Devon: Maria Tom Under the Supervision of: Dr. Abdirahman Lassiter D.O. First contact with patient: 21:06 Chief Complaint: SHORTNESS OF BREATH Stated Complaint: SHORTNESS OF BREATH History of Present Illness The patient is a 81 year old male who presents to the Emergency Room with complaints of constant shortness of breath beginning 5 days ago. The patient's son states that the patient fell 5 days ago and broke his clavicle. Since then, he reports that the patient has been seen here 2 times for diarrhea. The patient states that he has missed his last 2 dialysis appointments and has been having shortness of breath since his fall. Tonight, the patient's son reports that he was talking to him on the phone and he was barely able to speak due to his shortness of breath. The patient complains of a cough, slight abdominal pain , and left sided chest pain. He denies any nausea, vomiting, leg swelling, leg pain, bloody stool, black stool, and fever. Source of History: patient, family Onset: 5 days ago Position: other (respiratory) Quality: other (SOB) Timing: constant Associated Symptoms: + chest pain, + abdominal pain, + diarrhea, No fevers, No nausea, No vomiting Note: He denies any leg swelling, leg pain, bloody stool, black stool. Review of Systems See HPI for pertinent positives & negatives. A total of 10 systems reviewed and were otherwise negative. 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 (4) Hypertension (5) Ischemic colitis Family History No pertinent family history Social History Smoking Status: Current Every Day Smoker Alcohol Use: occasionally Drug Use: none Marital Status: Occupation Status: retired Current/Historical Medications Scheduled Amlodipine Besylate (Norvasc), 5 MG PO QAM Aspirin (Aspir-81), 81 MG PO QAM Hydrocortisone (Topical) (Hydrocortisone), 1 APPLN EXT BID Insulin Aspart (Novolog Flexpen), 18 UNITS SC QAM Insulin Aspart (Novolog Flexpen), 19 UNITS SQ LUNCH Insulin Aspart (Novolog Flexpen), 22 UNITS SQ QPM Insulin Glargine (Lantus Solostar), 30-35 UNITS SQ HS Lidocaine-Prilocaine (Efkqmfdws-Mxosuftobn-Ngts 2.5-2.5 %), 1 APPLN TOP UD Metoprolol Succinate (Metoprolol Succinate ER), 50 MG PO QPM Ocuvite Preservision (Ocuvite Preservision), 2 TABS PO DAILY Ranitidine (Zantac), 150 MG PO HS Sodium Bicarbonate (Antacid) (Sodium Bicarbonate), 650 MG PO BIDM Vitamin B Cmplx/Vitc/Folic Ac (Nephrocaps), 1 CAP PO DAILY Scheduled PRN Diphenhydramine Hcl (Benadryl Allergy), 1 CAP PO every 12 hours PRN for itching Oxycodone/Acetaminophen 5MG/325MG (Percocet 5MG/325MG), 1-2 TABLETS PO Q8 PRN for Pain Allergies Coded Allergies: No Known Allergies (Unverified , 04/06/17) Physical Exam Vital Signs Date Time Temp Pulse Resp B/P (MAP) Pulse Ox O2 Delivery O2 Flow Rate FiO2 04/06/17 23:33 100 04/06/17 22:50 101 16 128/61 93 04/06/17 22:20 103 15 92 04/06/17 21:50 98 21 90 04/06/17 21:47 104 04/06/17 21:46 92 Room Air 04/06/17 21:40 92 Room Air 04/06/17 21:03 36.7 114 18 136/68 92 Room Air Physical Exam GENERAL: Patient is awake, alert, mildly anxious appearing but comfortable EYES: The conjunctivae are clear. The pupils are round and reactive. EARS, NOSE, MOUTH AND THROAT: The nose is without any evidence of any deformity. Mucous membranes are moist tongue is midline NECK: The neck is nontender and supple. RESPIRATORY: Lung sounds diminished throughout, rales in both lung willett, mild tachypnea noted. CARDIOVASCULAR: Tachycardic rate and regular rhythm noted, distant heart sounds GASTROINTESTINAL: The abdomen is soft. Bowel sounds are present in all quadrants. Abdomen is nontender PELVIS: The Pelvis is stable. No tenderness to palpation is noted. BACK: No midline tenderness or or step-off noted range of motion in flexion extension as well as rotation no signs of muscle spasm noted MUSCULOSKELETAL/EXTREMITIES: There is no evidence of gross deformity full range of motion is noted in the hips and shoulders SKIN: There is no obvious evidence of any rash. Pedal edema bilaterally, dialysis fistula in left forearm with palpable thrill and bruit noted to auscultation NEUROLOGIC: Patient is awake alert and oriented x3 Medical Decision & Procedures ER Provider Diagnostic Interpretation: X-ray results as stated below per interpretation by me and the radiologist. CHEST ONE VIEW PORTABLE FINDINGS: Exam is compromised by motion artifact. Right lower lung airspace opacity is noted. There may be minimal left lower lung opacity is well. Mild cardiomegaly is noted. There is no evidence for pulmonary edema. IMPRESSION: 1. Probable right lower lung airspace opacity which favors pneumonia. Study mildly compromised by motion artifact. 2. Possible minimal left basilar opacity. Electronically signed by: Henri Dorantes M.D. 04/06/2017 10:54 PM Dictated Date/Time: 04/06/2017 10:52 PM Laboratory Results Test 04/06/17 21:20 04/06/17 21:45 04/06/17 21:50 Immature Granulocyte % (Auto) 0.5 % White Blood Count 18.64 K/uL (4.8-10.8) Red Blood Count 2.91 M/uL (4.7-6.1) Hemoglobin 8.9 g/dL (14.0-18.0) Hematocrit 26.5 % (42-52) Mean Corpuscular Volume 91.1 fL (80-100) Mean Corpuscular Hemoglobin 30.6 pg (25-34) Mean Corpuscular Hemoglobin Concent 33.6 g/dl (32-36) Platelet Count 294 K/uL (130-400) Mean Platelet Volume 12.1 fL (7.4-10.4) Neutrophils (%) (Auto) 82.6 % Lymphocytes (%) (Auto) 5.1 % Monocytes (%) (Auto) 10.9 % Eosinophils (%) (Auto) 0.6 % Basophils (%) (Auto) 0.3 % Neutrophils # (Auto) 15.38 K/uL (1.4-6.5) Lymphocytes # (Auto) 0.95 K/uL (1.2-3.4) Monocytes # (Auto) 2.03 K/uL (0.11-0.59) Eosinophils # (Auto) 0.12 K/uL (0-0.5) Basophils # (Auto) 0.06 K/uL (0-0.2) Immature Granulocyte # (Auto) 0.10 K/uL (0.00-0.02) Anisocytosis PRESENT Erythrocyte Sedimentation Rate > 90 mm/hr (0-14) Prothrombin Time 10.0 SECONDS (9.0-12.0) Prothromb Time International Ratio 0.9 (0.9-1.1) Activated Partial Thromboplast Time 26.7 SECONDS (21.0-31.0) Partial Thromboplastin Ratio 1.0 Total Bilirubin 0.5 mg/dl (0.2-1) Aspartate Amino Transf (AST/SGOT) 30 U/L (15-37) Alanine Aminotransferase (ALT/SGPT) 36 U/L (12-78) Alkaline Phosphatase 76 U/L (45-117) Total Creatine Kinase 68 U/L (39-308) Creatine Kinase MB 6.6 ng/ml (0.5-3.6) Creatine Kinase MB Ratio 9.7 (0-3.0) C-Reactive Protein 22.10 mg/dl (0-0.29) Pro-B-Type Natriuretic Peptide > 19989 pg/ml (0-1800) Total Protein 7.2 gm/dl (6.4-8.2) Albumin 2.5 gm/dl (3.4-5.0) Globulin 4.7 gm/dl (2.5-4.0) Albumin/Globulin Ratio 0.5 (0.9-2) Venous Blood pH 7.32 (7.36-7.41) Venous Blood Partial Pressure CO2 37 mmHg (38.0-50.0) Venous Blood Partial Pressure O2 48 mmHg Venous Blood HCO3 19 mmol/L Venous Blood Oxygen Saturation 79.8 % Venous Blood Base Excess -6.7 mEq/L Bedside Lactic Acid Venous 1.58 mmol/L (0.90-1.70) Laboratory results per my review. Medications Administered Medications (Trade) Dose Ordered Sig/Brennan Route Start Time Stop Time Status Last Admin Dose Admin Levofloxacin (Levaquin / D5W) 750 mg NOW ONCE IV 04/06/17 22:45 04/06/17 22:46 DC 04/06/17 23:08 750 MG ECG Indication: SOB/dyspnea Rate (beats per minute): 110 Rhythm: sinus rhythm Findings: 1st degree AV block, PVC (frequent) Comparison ECG Date: 01/23/17 Change: Changes are new. ED Course 2105: The patient was evaluated in room A3. A complete history and physical examination were performed. 2240: I reevaluated and updated the patient. 2244: Levofloxacin 750mg IV. 2312: I discussed the patient's case [place] [facility] [place] patient will be evaluated for further management. 2321: Upon reevaluation, the patient is doing well. I discussed results and treatment plan with the patient. He verbalizes agreement and understanding. I spoke with [place]. [place]old[place] of the [facility] [place] The patient will be evaluated for further management and care. Medical Decision Differential diagnosis: Etiologies such as infections, reactive airway disease, pneumonia, pneumothorax , COPD, CHF, cardiac ischemia, pulmonary embolism, musculoskeletal, gastrointestinal, as well as others were entertained. Nursing notes reviewed. Additional history is obtained from the patient's family members. The patient is a 81-year-old male who presented to the emergency department for an evaluation of shortness of breath. The patient had a recent fall or he suffered a fracture to his left upper extremity. He states that because of this he's been unable to ambulate and was not able to go to dialysis since last . The patient appeared in pulmonary edema but he also has signs of pneumonia on chest x-ray with an elevation in his white blood cell count. I discussed patient's laboratory and radiographic studies with him. He was treated with IV antibiotics. I discussed his case with the on-call [facility] hospitalist. They've agreed to evaluate the patient in the emergency department for further management and disposition. Medication Reconcilliation Current Medication List: was personally reviewed by me Blood Pressure Screening Patient's blood pressure: Elevated blood pressure Blood pressure disposition: Elevated BP felt to be situational Consults Time Called: [id number] Consulting Physician: Dr. Roldan - [facility] [place]ed Call: [id number] I discussed the patient's case with Dr. [place]old[place] of [facility] [place] The patient will be evaluated for further management. Impression Primary Impression: SOB (shortness of breath) Additional Impressions: Pulmonary edema Right lower lobe pneumonia Scribe Attestation The scribe's documentation has been prepared under my direction and personally reviewed by me in its entirety. I confirm that the note above accurately reflects all work, treatment, procedures, and medical decision making performed by me. Departure Information Dispostion Being Evaluated By Hospitalist Referrals Reji Cameron M.D. (PCP) Patient Instructions My [facility] Problem Qualifiers Additional Impressions: Pulmonary edema Chronicity: acute Qualified Codes: J81.0 - Acute pulmonary edema Right lower lobe pneumonia Pneumonia type: due to unspecified organism Qualified Codes: J18.1 - Lobar pneumonia, unspecified organism
[2017-04-06] MEDS ORDERED: INSDGIPEN SQ (21:46)
[2017-04-06] MEDS ORDERED: OXYC-57 PO (22:01)
[2017-04-06 22:04] LABS: BASO % 0.3 %; BASO ABS # 0.06 K/uL (0-0.2); EOS % 0.6 %; HEMATOCRIT 26.5 % (42-52); IG% 0.5 %; LYMPH % 5.1 %; LYMPH ABS # 0.95 K/uL (1.2-3.4); MEAN CELL VOLUME 91.1 fL (80-100); MEAN CORPUSCULAR HEMOGLOBIN 30.6 pg (25-34); MEAN CORPUSCULAR HGB CONC 33.6 g/dl (32-36); MEAN PLATELET VOLUME 12.1 fL (7.4-10.4); MONO % 10.9 %; NEUT % 82.6 %; PLATELET COUNT 294 K/uL (130-400); RED BLOOD COUNT 2.91 M/uL (4.7-6.1); WHITE BLOOD COUNT 18.64 K/uL (4.8-10.8)
[2017-04-06 22:06] LABS: VEN BLD GAS O2 SATURATION 79.8 %; VEN BLOOD GAS BASE EXCESS -6.7 mEq/L
[2017-04-06] MEDS ORDERED: TPRSR/50 PO (22:10)
[2017-04-06 22:22] LABS: INR 0.9 (0.9-1.1)
[2017-04-06 22:40] LABS: ANISOCYTOSIS PRESENT; COMPLETE YES
[2017-04-06 22:41] LABS: ALB/GLOB RATIO 0.5 (0.9-2); ALKALINE PHOSPHATASE 76 U/L (45-117); ALT/SGPT 36 U/L (12-78); AST/SGOT 30 U/L (15-37); BLOOD UREA NITROGEN 85 mg/dl (7-18); BUN/CREATININE RATIO 9.8 (10-20); CALCIUM 9.8 mg/dl (8.5-10.1); CARBON DIOXIDE 19 mmol/L (21-32); CHLORIDE 100 mmol/L (98-107); CKMB/CK RATIO 9.7 (0-3.0); GLUCOSE 178 mg/dl (70-99); SODIUM 135 mmol/L (136-145)
[2017-04-06] MEDS ORDERED: LEVAQUIN 750MG / 150ML D5W IV ONE (22:45)
--- NOTE | 2017-04-06 22:55 | DIAGNOSTIC IMAGING REPORT ---
CHEST ONE VIEW PORTABLE CLINICAL HISTORY: Respiratory distress. Dyspnea. COMPARISON STUDY: Chest radiograph December 05, 2015. FINDINGS: Exam is compromised by motion artifact. Right lower lung airspace opacity is noted. There may be minimal left lower lung opacity is well. Mild cardiomegaly is noted. There is no evidence for pulmonary edema. IMPRESSION: 1. Probable right lower lung airspace opacity which favors pneumonia. Study mildly compromised by motion artifact. 2. Possible minimal left basilar opacity. Electronically signed by: Henri Dorantes M.D. 04/06/2017 10:54 PM Dictated Date/Time: 04/06/2017 10:52 PM
[2017-04-07] VITALS (22 sets, daily range): BP systolic 96–146; BP diastolic 48–89; PULSE 86–137; TEMP 36.4–36.9; O2SAT 92–98; Ht 175.3 cm; Wt 111.0 kg
[2017-04-07] MEDS ORDERED: MAGNESIUM HYDROXIDE SUSP 30 ML UDC PO PRN
[2017-04-07] MEDS ORDERED: ACETAMINOPHEN 325 MG TAB PO PRN
[2017-04-07] MEDS ORDERED: POLYETHYLENE (MIRALAX) 17 GM PACK PO PRN
[2017-04-07] MEDS ORDERED: ALUMINUM/MAGNESIUM/SIMETH (MAALOX MAX) 30 ML UDC PO PRN
[2017-04-07] MEDS ORDERED: ONDANSETRON INJ 2 MG/ML 2 ML VIAL IV PRN
--- NOTE | 2017-04-07 00:53 | History and Physical ---
History & Physical Date & Time of Service: Apr 07, 2017 at 00:09 Chief Complaint: Shortness Of Breath Primary Care Physician: Reji Cameron M.D. History of Present Illness Source: patient 81 y/o M Hx ESRD, ankylosing spondylitis, DM 2, HTN, HPL, mesenteric ischemia, chronic post-prandial diarrhea, anemia. Pt suffered a fall with resultant L clavicular fracture 5 days prior. He is having difficulty with mobility and missed a dialysis session as a result. The pt developed progressive SOB which is pronounced with exertion and presented to the ER as a result. Initial imaging reveals pulmonary edema in addition to a RLL infiltrate. He denies CP although he has had L rib pain and pleuritic chest wall pain since his fall. He has not had fevers or rigors and denies a productive cough. Initial labs reveal worsening anemia and leukocytosis. Troponin is marginally elevated although this is suspected due to renal failure. The pt was recently admitted for chronic postprandial diarrhea. He had a full workup including an endoscopy, colonoscopy and HIDA scan. An EGD showed a Dieulafoy lesion in the upper stomach, which was actively oozing and clipped with cessation of bleeding. No definitive diagnosis was confirmed for his diarrhea and workup is ongoing - differential may include pancreatic insufficiency, chronic mesenteric ischemia, akinetic gallbladder. He continues to have diarrhea. Past Medical/Surgical History 1) ESRD 2) Ankylosing spondylitis 3) DM 2 4) HTN 5) HPL 6) Chronic mesenteric ischemia 7) History of ischemic colitis 8) Hyperparathyroidism 9) Chronic post-prandial diarrhea Surgical: Fistula in LUE Family History No pertinent family history Social History Smoking Status: Current Every Day Smoker Drug Use: none Marital Status: Housing status: lives with family Occupational Status: retired Multi-Drug Resistant Organisms History of MDRO: No Allergies Coded Allergies: No Known Allergies (Unverified , 04/06/17) Home Medications Scheduled Amlodipine Besylate (Norvasc), 5 MG PO QAM Aspirin (Aspir-81), 81 MG PO QAM Hydrocortisone (Topical) (Hydrocortisone), 1 APPLN EXT BID Insulin Aspart (Novolog Flexpen), 18 UNITS SC QAM Insulin Aspart (Novolog Flexpen), 19 UNITS SQ LUNCH Insulin Aspart (Novolog Flexpen), 22 UNITS SQ QPM Insulin Glargine (Lantus Solostar), 30-35 UNITS SQ HS Lidocaine-Prilocaine (Dyffzmfvu-Gtjtjzxpot-Qyuu 2.5-2.5 %), 1 APPLN TOP UD Metoprolol Succinate (Metoprolol Succinate ER), 50 MG PO QPM Ocuvite Preservision (Ocuvite Preservision), 2 TABS PO DAILY Ranitidine (Zantac), 150 MG PO HS Sodium Bicarbonate (Antacid) (Sodium Bicarbonate), 650 MG PO BIDM Vitamin B Cmplx/Vitc/Folic Ac (Nephrocaps), 1 CAP PO DAILY Scheduled PRN Diphenhydramine Hcl (Benadryl Allergy), 1 CAP PO every 12 hours PRN for itching Oxycodone/Acetaminophen 5MG/325MG (Percocet 5MG/325MG), 1-2 TABLETS PO Q8 PRN for Pain Review of Systems Constitutional: No fever, No chills, No sweats Eyes: No worsening of vision, No eye pain ENT: No hearing loss, No nasal symptoms Respiratory: + shortness of breath, + dyspnea on exertion, + dyspnea at rest, No cough, No sputum, No wheezing Cardiovascular: + chest pain (chest wall pain ) Abdomen: + diarrhea (chronic), No pain, No nausea, No vomiting Genitourinary - Male: + problem reported (Pt continues to make urine), No hematuria, No dysuria Neurologic: No memory loss, No paralysis Psychiatric: + depression symptoms Endocrine: No fatigue Hematologic / Lymphatic: No abnormal bleeding/bruising Integumentary: No rash Allergic / Immunologic: No environmental allergies Physical Exam Vital Signs Date Time Temp Pulse Resp B/P (MAP) Pulse Ox O2 Delivery O2 Flow Rate FiO2 04/07/17 00:07 100 13 137/83 95 Room Air 04/06/17 23:33 100 04/06/17 22:50 101 16 128/61 93 04/06/17 22:20 103 15 92 04/06/17 21:50 98 21 90 04/06/17 21:47 104 04/06/17 21:46 92 Room Air 04/06/17 21:40 92 Room Air 04/06/17 21:03 36.7 114 18 136/68 92 Room Air General Appearance: WD/WN, no apparent distress Head: normocephalic Eyes: normal inspection, + pertinent finding (Chronic gaze discordance) ENT: normal ENT inspection, pharynx normal Neck: supple, + JVD Respiratory/Chest: chest non-tender, lungs clear, normal breath sounds, + pertinent finding (Anna are no discernable crackles or wheezing - pt did receive Lasix) Cardiovascular: regular rate, rhythm, no edema, + systolic murmur Abdomen/GI: normal bowel sounds, non tender, soft Back: normal inspection, no CVA tenderness Extremities/Musculoskelatal: normal inspection, no calf tenderness, normal capillary refill, no pedal edema, + pertinent finding (Cannot mobilize L arm without considerable pain - ) 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, no motor/sensory deficits, alert, + pertinent finding (Depressed affect) Skin: normal color, warm/dry Diagnostics Laboratory Results Results Past 24 Hours Test 04/06/17 21:20 04/06/17 21:45 04/06/17 21:50 Range/Units White Blood Count 18.64 4.8-10.8 K/uL Red Blood Count 2.91 4.7-6.1 M/uL Hemoglobin 8.9 14.0-18.0 g/dL Hematocrit 26.5 42-52 % Mean Corpuscular Volume 91.1 80-100 fL Mean Corpuscular Hemoglobin 30.6 25-34 pg Mean Corpuscular Hemoglobin Concent 33.6 32-36 g/dl Platelet Count 294 130-400 K/uL Mean Platelet Volume 12.1 7.4-10.4 fL Neutrophils (%) (Auto) 82.6 % Lymphocytes (%) (Auto) 5.1 % Monocytes (%) (Auto) 10.9 % Eosinophils (%) (Auto) 0.6 % Basophils (%) (Auto) 0.3 % Neutrophils # (Auto) 15.38 1.4-6.5 K/uL Lymphocytes # (Auto) 0.95 1.2-3.4 K/uL Monocytes # (Auto) 2.03 0.11-0.59 K/uL Eosinophils # (Auto) 0.12 0-0.5 K/uL Basophils # (Auto) 0.06 0-0.2 K/uL RDW Standard Deviation 55.1 36.4-46.3 fL RDW Coefficient of Variation 16.7 11.5-14.5 % Immature Granulocyte % (Auto) 0.5 % Immature Granulocyte # (Auto) 0.10 0.00-0.02 K/uL Anisocytosis PRESENT Erythrocyte Sedimentation Rate > 90 0-14 mm/hr Prothrombin Time 10.0 9.0-12.0 SECONDS Prothromb Time International Ratio 0.9 0.9-1.1 Activated Partial Thromboplast Time 26.7 21.0-31.0 SECONDS Partial Thromboplastin Ratio 1.0 Sodium Level 135 136-145 mmol/L Potassium Level 4.0 3.5-5.1 mmol/L Chloride Level 100 98-107 mmol/L Carbon Dioxide Level 19 21-32 mmol/L Anion Gap 16.0 3-11 mmol/L Blood Urea Nitrogen 85 7-18 mg/dl Creatinine 8.70 0.60-1.40 mg/dl Est Creatinine Clear Calc Drug Dose 8.0 ml/min Estimated GFR () 6.0 Estimated GFR (Non- 5.2 BUN/Creatinine Ratio 9.8 10-20 Random Glucose 178 70-99 mg/dl Calcium Level 9.8 8.5-10.1 mg/dl Total Bilirubin 0.5 0.2-1 mg/dl Aspartate Amino Transf (AST/SGOT) 30 15-37 U/L Alanine Aminotransferase (ALT/SGPT) 36 12-78 U/L Alkaline Phosphatase 76 45-117 U/L Total Creatine Kinase 68 39-308 U/L Creatine Kinase MB 6.6 0.5-3.6 ng/ml Creatine Kinase MB Ratio 9.7 0-3.0 Troponin I 0.944 0-0.045 ng/ml C-Reactive Protein 22.10 0-0.29 mg/dl Pro-B-Type Natriuretic Peptide > 00272 0-1800 pg/ml Total Protein 7.2 6.4-8.2 gm/dl Albumin 2.5 3.4-5.0 gm/dl Globulin 4.7 2.5-4.0 gm/dl Albumin/Globulin Ratio 0.5 0.9-2 Venous Blood pH 7.32 7.36-7.41 Venous Blood Partial Pressure CO2 37 38.0-50.0 mmHg Venous Blood Partial Pressure O2 48 mmHg Venous Blood HCO3 19 mmol/L Venous Blood Oxygen Saturation 79.8 % Venous Blood Base Excess -6.7 mEq/L Bedside Lactic Acid Venous 1.58 0.90-1.70 mmol/L Diagnostic Radiology CXR: 1. Probable right lower lung airspace opacity which favors pneumonia. Study mildly compromised by motion artifact. 2. Possible minimal left basilar opacity. Impression Assessment and Plan 81 y/o M Hx ESRD, ankylosing spondylitis, DM 2, HTN, HPL, mesenteric ischemia, chronic post-prandial diarrhea, anemia. Pt suffered a fall with resultant L clavicular fracture 5 days prior. He is having difficulty with mobility and missed a dialysis session as a result. The pt developed progressive SOB which is pronounced with exertion and presented to the ER as a result. Initial imaging reveals pulmonary edema in addition to a RLL infiltrate. He denies CP although he has had L rib pain and pleuritic chest wall pain since his fall. He has not had fevers or rigors and denies a productive cough. Initial labs reveal worsening anemia and leukocytosis. Troponin is marginally elevated although this is suspected due to renal failure. 1) SOB - due to PNM and missed dialysis leading to volume overload and pulmonary edema. The pt was placed on Levaquin and provided with a dose of Lasix - we will provide 02 and nebs as needed. 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 4) Chronic diarrhea - workup is ongoing - can f/u with GI as outpt. 5) DM 2 - placed on SS 6) L clavicular fracture - he is following with ortho - avoiding surgery is preferred due to location of his dialysis graft 7) HPL - cont Statin Tx 8) Elevated trop - likely due to ESRD - will trend - no active CP Full code - Heparin prophylaxis Total time for this admit including review of labs, meds, imaging, records - discussion with pt, pt's son and ER attending - 38 min Level of Care Telemetry Resuscitation Status FULL RESUSCITATION VTE Prophylaxis VTE Risk Assessment Done? Y/N: Yes Risk Level: Moderate Given or contraindicated: SCD's
[2017-04-07] MEDS: OXYCODONE/ACETAMINOPHEN 5-325 TAB PO PRN ×2 (02:41→14:36)
[2017-04-07] MEDS ORDERED: FUROSEMIDE INJ 20 MG in SYRINGE 0 ML IV ONE (03:15)
[2017-04-07] MEDS ORDERED: LEVOFLOXACIN CONSULT ACTIVE PRN (04:00)
[2017-04-07] MEDS ORDERED: HEPARIN SOD 5000 UNIT/0.5 ML CARP SQ SCH (06:00)
[2017-04-07 06:37] LABS: HEMATOCRIT 23.4 % (42-52); MEAN CORPUSCULAR HEMOGLOBIN 30.4 pg (25-34); MEAN CORPUSCULAR HGB CONC 33.8 g/dl (32-36); MEAN PLATELET VOLUME 12.2 fL (7.4-10.4); PLATELET COUNT 288 K/uL (130-400); WHITE BLOOD COUNT 13.43 K/uL (4.8-10.8)
[2017-04-07 07:27] LABS: URINE APPEARANCE CLEAR (CLEAR); URINE BILIRUBIN NEG (NEG); URINE COLOR YELLOW; URINE NITRITE NEG (NEG); URINE PH 6.5 (4.5-7.5); URINE SPECIFIC GRAVITY 1.017 (1.000-1.030); UROBILINOGEN NEG (NEG)
[2017-04-07 07:30] LABS: MANUAL MICROSCOPIC REQUIRED? NO; REVIEW REQ? NO
[2017-04-07] MEDS: NEPHROCAPS PO SCH (07:50)
[2017-04-07] MEDS: SODIUM BICARBONATE 650 MG TAB PO SCH ×2 (07:50→16:09)
[2017-04-07] MEDS ORDERED: ASPIRIN 81 MG ECTAB PO SCH (09:00)
[2017-04-07] MEDS ORDERED: CEROVITE ADV FORMULA TAB PO SCH (09:00)
[2017-04-07] MEDS ORDERED: AMLODIPINE BESYLATE 5 MG TAB PO SCH (09:00)
--- NOTE | 2017-04-07 11:06 | Hospitalist Progress Note ---
Hospitalist Progress Note Date of Service Apr 07, 2017. (Sigrid Nava ., TEMOC) Subjective Pt evaluation today including: conversation w/ patient, physical exam, chart review, lab review, review of studies, review of inpatient medication list Pain: 10/10 aching left lateral chest pain PO Intake: Tolerating PO diet Voiding: no voiding problems Patient complains of a 10/10 aching pain on the left lateral side of his chest where he sustained a fall on 04/01 at dialysis. The was evaluated at the ED at that time and diagnosed with a left proximal humeral fracture, although no fracture was noted on x-ray by the radiologist. He was given a sling and opiates. The patient states that his chest/rib pain is worse with palpation and deep breaths. The patient still complains of shortness of breath and dyspnea on exertion and states that this has not improved since arrival. He admits to intermittent wheezing but denies cough. He also complains of intermittent right sided abdominal pain which he states has been chronic for the last few months. He has not been able to determine alleviating or aggravating factors. He also complains of chronic diarrhea. The patient denies fevers, chills, sweats, palpitations, claudication, cough, nausea, vomiting, dysuria, hematuria, urinary retention, paralysis, weakness, acute numbness and tingling. Additional Comments: See HPI for pertinent positives and negatives. All other systems reviewed and negative. (Sigrid Nava ., PA-C) Objective Vital Signs Date Time Temp Pulse Resp B/P (MAP) Pulse Ox O2 Delivery O2 Flow Rate FiO2 04/07/17 08:06 36.7 88 18 135/72 (93) 92 04/07/17 08:00 Room Air 04/07/17 07:53 146/74 (98) 04/07/17 02:20 36.5 99 22 119/70 94 Room Air 04/07/17 02:15 104 21 115/58 94 04/07/17 02:05 104 21 115/58 94 Room Air 04/07/17 00:07 100 13 137/83 95 Room Air 04/06/17 23:33 100 04/06/17 22:50 101 16 128/61 93 04/06/17 22:20 103 15 92 04/06/17 21:50 98 21 90 04/06/17 21:47 104 04/06/17 21:46 92 Room Air 04/06/17 21:40 92 Room Air 04/06/17 21:03 36.7 114 18 136/68 92 Room Air (Sigrid Nava ., BISHOP-C) Physical Exam Notes: General appearance: +Appears chronically ill. Obese. Mild distress secondary to pain. Well-developed, well-nourished Head: Normocephalic, atraumatic Eyes: +Disconjugate gaze. Normal inspection, PERRL, EOMI ENT: Normal ENT inspection, hearing grossly normal, pharynx normal Neck: Supple, no JVD, trachea midline Respiratory/Chest: +Diminished breath sounds. Left side of chest very TTP and ecchymotic. Lungs clear to auscultation, no respiratory distress Cardiovascular: +Systolic murmur. Regular rate & rhythm, no gallop Abdomen/GI: +RUQ, RLQ and LLQ TTP. Normal bowel sounds, soft Extremities/Musculoskeletal: Normal inspection, no calf tenderness, no pedal edema Neurological/Psych: Alert, normal mood/affect, oriented x 3 Skin: +Ecchymosis left lateral chest and shoulder. Normal color, warm/dry, no rash (Sigrid Nava ., PA-C) Laboratory Results Last 24 Hours Test 04/06/17 21:20 04/06/17 21:45 04/06/17 21:50 04/07/17 06:12 White Blood Count 18.64 K/uL 13.43 K/uL Red Blood Count 2.91 M/uL 2.60 M/uL Hemoglobin 8.9 g/dL 7.9 g/dL Hematocrit 26.5 % 23.4 % Mean Corpuscular Volume 91.1 fL 90.0 fL Mean Corpuscular Hemoglobin 30.6 pg 30.4 pg Mean Corpuscular Hemoglobin Concent 33.6 g/dl 33.8 g/dl Platelet Count 294 K/uL 288 K/uL Mean Platelet Volume 12.1 fL 12.2 fL Neutrophils (%) (Auto) 82.6 % Lymphocytes (%) (Auto) 5.1 % Monocytes (%) (Auto) 10.9 % Eosinophils (%) (Auto) 0.6 % Basophils (%) (Auto) 0.3 % Neutrophils # (Auto) 15.38 K/uL Lymphocytes # (Auto) 0.95 K/uL Monocytes # (Auto) 2.03 K/uL Eosinophils # (Auto) 0.12 K/uL Basophils # (Auto) 0.06 K/uL RDW Standard Deviation 55.1 fL 54.2 fL RDW Coefficient of Variation 16.7 % 16.5 % Immature Granulocyte % (Auto) 0.5 % Immature Granulocyte # (Auto) 0.10 K/uL Anisocytosis PRESENT Erythrocyte Sedimentation Rate > 90 mm/hr Prothrombin Time 10.0 SECONDS Prothromb Time International Ratio 0.9 Activated Partial Thromboplast Time 26.7 SECONDS Partial Thromboplastin Ratio 1.0 Sodium Level 135 mmol/L Potassium Level 4.0 mmol/L Chloride Level 100 mmol/L Carbon Dioxide Level 19 mmol/L Anion Gap 16.0 mmol/L Blood Urea Nitrogen 85 mg/dl Creatinine 8.70 mg/dl Est Creatinine Clear Calc Drug Dose 8.0 ml/min Estimated GFR () 6.0 Estimated GFR (Non- 5.2 BUN/Creatinine Ratio 9.8 Random Glucose 178 mg/dl Calcium Level 9.8 mg/dl Total Bilirubin 0.5 mg/dl Aspartate Amino Transf (AST/SGOT) 30 U/L Alanine Aminotransferase (ALT/SGPT) 36 U/L Alkaline Phosphatase 76 U/L Total Creatine Kinase 68 U/L Creatine Kinase MB 6.6 ng/ml Creatine Kinase MB Ratio 9.7 Troponin I 0.944 ng/ml 1.030 ng/ml C-Reactive Protein 22.10 mg/dl Pro-B-Type Natriuretic Peptide > 65852 pg/ml Total Protein 7.2 gm/dl Albumin 2.5 gm/dl Globulin 4.7 gm/dl Albumin/Globulin Ratio 0.5 Venous Blood pH 7.32 Venous Blood Partial Pressure CO2 37 mmHg Venous Blood Partial Pressure O2 48 mmHg Venous Blood HCO3 19 mmol/L Venous Blood Oxygen Saturation 79.8 % Venous Blood Base Excess -6.7 mEq/L Bedside Lactic Acid Venous 1.58 mmol/L Test 04/07/17 06:46 04/07/17 07:00 Bedside Glucose 129 mg/dl Urine Color YELLOW Urine Appearance CLEAR Urine pH 6.5 Urine Specific [place] 1.017 Urine Protein 2+ Urine Glucose (UA) 1+ Urine Ketones TRACE Urine Occult Blood 1+ Urine Nitrite NEG Urine Bilirubin NEG Urine Urobilinogen NEG Urine Leukocyte Esterase NEG Urine WBC (Auto) 1-5 /hpf Urine RBC (Auto) 0-4 /hpf Urine Hyaline Casts (Auto) 1-5 /lpf Urine Epithelial Cells (Auto) 10-20 /lpf Urine Bacteria (Auto) NEG (Sigrid Nava, BITA) Assessment and Plan 81 y/o male with a history of ESRD on HD, recent fall with ?left proximal humeral fracture, ankylosing spondylitis, DM II, HTN, HLD, mesenteric ischemia, chronic post-prandial diarrhea, and anemia of chronic disease who presents to the ED on 04/06 with worsening shortness of breath. The patient had a recent fall on 04/01 and has had significant pain as a result, causing him to miss his last 2 dialysis treatments. CXR shows RLL pneumonia. RLL pneumonia, pt recently admitted in February, treat for HCAP--improving -Admit to telemetry. No acute events overnight. Pt in SR with HR 80s-low 100s -O2 by protocol -Blood cultures drawn. Pt received 1 dose of Levaquin prior -Continue Levaquin 500 mg IV q48h (renally dosed). Pt received 750 mg x1 in ED. Day #2 -Start IV Vancomycin and Zosyn for HCAP coverage -DuoNebs QIDR and q2h prn SOB/wheezing -Leukocytosis improving. WBC 13.43 on 04/07, down from 18.64 -ESR and CRP elevated Elevated troponin--ongoing -Troponin 1.03 on 04/07, up from 0.944. No prior tests to compare, unknown if chronically elevated. Pt does complain of CP but seems mostly MSK due to recent fall/bruising -Trend troponin q8h x 3 or until peaks -Repeat EKG 04/07 shows 103 bpm, sinus tachycardia with occasional PVC -Consult cardiology, appreciate recs Acute on chronic anemia of chronic disease--ongoing -Baseline hemoglobin 10-11 -Hgb 8.9 on admission -Recent Dieulafoy lesion found on EGD 03/22/17 in the upper stomach which was clipped -Start Protonix 40 mg PO qd, continue Zantac 150 mg PO qhs -Repeat Hgb 7.9 on 04/07 -D/C aspirin -Trend H&H q6h. If Hgb continues to trend down, transfuse prn. Monitor for now ESRD on HD, fluid overload--pt missed 2 dialysis treatments. Pt on / schedule -Consult nephrology, appreciate recs. Pt follows with Dr. Peraza -Pt received Lasix 20 mg IV x 1 upon admission -BNP > 47581 on admission -Continue sodium bicarb 650 mg PO BIDM and Nephrocaps PO qd Recent fall, ?left proximal humeral fracture--pt seen in ED 04/01 diagnosed w/ proximal humeral fracture, although no fracture noted on x-ray by radiologist -Continue Percocet 5/325 mg PO q8h prn pain -Pt following with Dr. Javier outpt DM II--last HgbA1c on 01/25/17 was 7.4 -Lantus 30 units SC qhs -Insulin sliding scale -Check BSGs q ac and qhs HTN--stable -Continue Toprol 50 mg PO qd and Norvasc 5 mg PO qd DVT prophylaxis -Hold chemical prophylaxis for now due to dropping Hgb -SCDs Code Status -Level I, FULL RESUSCITATION STATUS (Sigrid Nava PA-C) Reviewed: Pt Seen/Exam by Me (Tamar Edmonds MD) History Physician [employer] Install[employer] Supervision Note: I interviewed and examined the patient. Discussed with BISHOP Nava and agree with findings and plan as documented in the note. Any exceptions or clarifications are listed here: Pt with significant pain left ribs which is improved with percocet. Biggest complaint otherwise is chronic diarrhea post-prandial x 3 months. Had evidence of biliary dyskinesia on HIDA, but Surgery was deferred until outpt f/u which was to occur around now. Daughter reports sometimes he misses HD due to fear of incontinence to diarrhea. QTc prolonged on ECG--> discussed with Cardio as to whether true prolongation given PVCs and he will look and get back to me as to whether Levaquin should be continued. Vitals reviewed NAD, sitting in chaor, eating dinner, left upper ext in sling RRR 2/6 IRAJ at LLSB, +exquisite ttp over left anterior and lateral rib cage Lungs with crackles and decreased BS at right base, otherwise slightly diminished throughout Abd +BS, soft, +TTP RUQ w/o guarding or rebound Ext no edema, left shoulder +TTP, in sling &11 yo male with multiple medical problems, here with RLL HCAP, respiratory insufficiency, and recent fall with left humerus fracture, left chest wall pain , demand ischemia. -check ECHO for LV fxn and WMAs and if ok, no further ischemic eval needed for elevated trop -IS added, pain management for rib pain -check left rib series xray -add on Vanc and Zosyn to cover for HCAP specifically to treat for GNR PNA and MRSA PNA -hold Levaquin now until Cardiology reviews ECGs again for prolonged QTc -trial of cholestyramine and probiotics for diarrhea, recommend f/u with Surgery as outpt for re-eval for cholecystectomy -follow hgb for worsening, holding ASA Documented By: Tamar Edmonds (Tamar Edmonds MD)
[2017-04-07] MEDS: ALBUT/IPRATROP 3MG/0.5MG NEB 3 ML VIAL INH SCH ×3 (11:29→19:06)
--- NOTE | 2017-04-07 11:44 | Nephrology Consultation ---
Nephrology Consultation Date & Providers Date of Consultation: Apr 07, 2017. Primary Care Provider: Reji Cameron M.D. Referring Provider: Reason for Consultation ESRD on HD History of Present Illness Mr. Galaeno is a 81 year old white male who is seen at the request of Dr. Roldan to provide in patient HD and assist w/ his medical management. 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 His dialysis prescription is 4 hours F- 180NR 2K 2Ca EDW 106kg. Patient has a functioning L upper arm AVF. Mr. Galeano has had several recent hospitalizations. In January 2017 he was hospitalized with R sided abdominal pain. Evaluation was concerning for ischemic colitis. He was evaluated by surgery and managed conservatively. In February he returned with abdominal pain and diarrhea. EGD revealed a Dieulafoy lesion which was oozing blood. This was clipped. Colonoscopy was negative for ischemia or malignancy. Patient was noted to have several polyps. He was treated for possible pancreatic insufficiency. Following discharge from the hospital Mr. Galeano has had persistent diarrhea and has remained weak. Approximately 5 days ago he fell following his outpatient dialysis treatment. Initially he declined medical evaluation but after returning home he developed progressive left shoulder pain. Mr. Galeano then presented to the ED. He reports that he was diagnosed with a fracture and referred to Orthopedics for evaluation. His left arm is currently in a sling. Mr. Galeano was too uncomfortable to attend dialysis on Wednesday or Wednesday. He presented to the ED this morning w/ complaints of weakness and exertional dyspnea. CXR shows a possible RLL infiltrate. Past Medical/Surgical History Medical: # ESRD due to diabetic nephropathy - on HD since 12/08 # AODM # HTN # PVD - diffuse atherosclerosis of the abdominal aorta # 02/08 hospitalization for ischemic colitis managed conservatively # 03/11 EGD w/ Dieulafoy lesion s/p clipping Surgical: # L upper arm AVF Allergies Coded Allergies: No Known Allergies (Unverified , 04/06/17) Inpatient Medications Current Inpatient Medications Medications (Trade) Dose Ordered Sig/Brennan Route Start Time Stop Time Status Last Admin Dose Admin Amlodipine Besylate (Norvasc Tab) 5 mg QAM PO 04/07/17 09:00 05/07/17 08:59 04/07/17 07:50 5 MG Diphenhydramine HCl (Benadryl Cap) 25 mg Q8H PRN PO 04/07/17 00:00 05/07/17 00:00 Insulin Glargine (Lantus Solostar Pen) 30 units HS SQ 04/07/17 21:00 05/07/17 20:59 Metoprolol Succinate (Toprol Xl Tab) 50 mg QPM PO 04/07/17 21:00 05/07/17 20:59 Multivitamins/ Minerals (Multivitamin W/ Minerals Tab) 2 tab DAILY PO 04/07/17 09:00 05/07/17 08:59 04/07/17 07:50 2 TAB Oxycodone/ Acetaminophen (Percocet 5-325mg Tab) 1 tab Q8 PRN PO 04/07/17 00:00 04/21/17 00:00 04/07/17 02:41 1 TAB Ranitidine HCl (zANTac TAB) 150 mg HS PO 04/07/17 21:00 05/07/17 20:59 Sodium Bicarbonate (Sodium Bicarbonate Tab) 650 mg BIDM PO 04/07/17 07:30 05/07/17 07:59 04/07/17 07:50 650 MG Vitamin B Complex/ Vit C/Folic Acid (Nephrocaps) 1 cap DAILY PO 04/07/17 09:00 05/07/17 08:59 04/07/17 07:50 1 CAP Acetaminophen (Tylenol Tab) 650 mg Q4H PRN PO 04/07/17 00:00 05/07/17 00:00 Al Hydrox/Mg Hydrox/Simethicone (Maalox Max Susp) 15 ml Q4H PRN PO 04/07/17 00:00 05/07/17 00:00 Magnesium Hydroxide (Milk Of Magnesia Susp) 30 ml Q12H PRN PO 04/07/17 00:00 05/07/17 00:00 Ondansetron HCl (Zofran Inj) 4 mg Q6H PRN IV 04/07/17 00:00 05/07/17 00:00 Polyethylene (Miralax Powder Packet) 17 gm DAILY PRN PO 04/07/17 00:00 05/07/17 00:00 Levofloxacin 500 mg/Prmx 100 ml @ 100 mls/hr Q48H IV 04/08/17 22:00 04/13/17 21:59 Levofloxacin (Consult) 1 ea UD PRN N/A 04/07/17 04:00 05/07/17 03:59 Albuterol/ Ipratropium (Duoneb) 3 ml QIDR INH 04/07/17 12:00 05/07/17 11:59 04/07/17 11:29 3 ML Family History No pertinent family history Negative for CKD / ESRD Social History Smoking Status: Current Every Day Smoker Drug Use: none Marital Status: Housing Status: lives with family Occupation: retired . has Alzheimers and requires home health nursing. Patient is retired. Current smoker Review of Systems Constitutional: No fever Respiratory: + dyspnea on exertion, No cough, No sputum, No wheezing, No dyspnea at rest Cardiovascular: No chest pain Abdomen: No pain, No nausea, No vomiting Integumentary: No rash A complete review of systems was performed. Pertinent positives are noted above. All other systems are negative. Physical Exam Date Time Temp Pulse Resp B/P (MAP) Pulse Ox O2 Delivery O2 Flow Rate FiO2 04/07/17 11:35 88 18 98 Room Air 04/07/17 11:13 36.9 90 16 139/68 (91) 92 Room Air 04/07/17 08:06 36.7 88 18 135/72 (93) 92 04/07/17 08:00 Room Air 04/07/17 07:53 146/74 (98) 04/07/17 02:20 36.5 99 22 119/70 94 Room Air 04/07/17 02:15 104 21 115/58 94 04/07/17 02:05 104 21 115/58 94 Room Air 04/07/17 00:07 100 13 137/83 95 Room Air 04/06/17 23:33 100 04/06/17 22:50 101 16 128/61 93 04/06/17 22:20 103 15 92 04/06/17 21:50 98 21 90 04/06/17 21:47 104 04/06/17 21:46 92 Room Air 04/06/17 21:40 92 Room Air 04/06/17 21:03 36.7 114 18 136/68 92 Room Air General Appearance: + pertinent finding (chronically ill appearing) Head: normocephalic, atraumatic Eyes: PERRL, EOMI Neck: no adenopathy, no JVD Respiratory/Chest: + pertinent finding (CTA anteriorly. Could not sit forward for evaluation of the posterior lung willett) Cardiovascular: regular rate, rhythm Abdomen/GI: soft (hypoactive bowel sounds. No guarding) Extremities/Musculoskelatal: no pedal edema, + pertinent finding (L arm AVF + bruit. L upper arm w/ significant bruising surrounding the bicepts muscle) Neurologic/Psych: alert, oriented x 3 Laboratory Results Last 24 Hours Test 04/06/17 21:20 04/06/17 21:45 04/06/17 21:50 04/07/17 06:12 White Blood Count 18.64 K/uL 13.43 K/uL Red Blood Count 2.91 M/uL 2.60 M/uL Hemoglobin 8.9 g/dL 7.9 g/dL Hematocrit 26.5 % 23.4 % Mean Corpuscular Volume 91.1 fL 90.0 fL Mean Corpuscular Hemoglobin 30.6 pg 30.4 pg Mean Corpuscular Hemoglobin Concent 33.6 g/dl 33.8 g/dl Platelet Count 294 K/uL 288 K/uL Mean Platelet Volume 12.1 fL 12.2 fL Neutrophils (%) (Auto) 82.6 % Lymphocytes (%) (Auto) 5.1 % Monocytes (%) (Auto) 10.9 % Eosinophils (%) (Auto) 0.6 % Basophils (%) (Auto) 0.3 % Neutrophils # (Auto) 15.38 K/uL Lymphocytes # (Auto) 0.95 K/uL Monocytes # (Auto) 2.03 K/uL Eosinophils # (Auto) 0.12 K/uL Basophils # (Auto) 0.06 K/uL RDW Standard Deviation 55.1 fL 54.2 fL RDW Coefficient of Variation 16.7 % 16.5 % Immature Granulocyte % (Auto) 0.5 % Immature Granulocyte # (Auto) 0.10 K/uL Anisocytosis PRESENT Erythrocyte Sedimentation Rate > 90 mm/hr Prothrombin Time 10.0 SECONDS Prothromb Time International Ratio 0.9 Activated Partial Thromboplast Time 26.7 SECONDS Partial Thromboplastin Ratio 1.0 Sodium Level 135 mmol/L Potassium Level 4.0 mmol/L Chloride Level 100 mmol/L Carbon Dioxide Level 19 mmol/L Anion Gap 16.0 mmol/L Blood Urea Nitrogen 85 mg/dl Creatinine 8.70 mg/dl Est Creatinine Clear Calc Drug Dose 8.0 ml/min Estimated GFR () 6.0 Estimated GFR (Non- 5.2 BUN/Creatinine Ratio 9.8 Random Glucose 178 mg/dl Calcium Level 9.8 mg/dl Total Bilirubin 0.5 mg/dl Aspartate Amino Transf (AST/SGOT) 30 U/L Alanine Aminotransferase (ALT/SGPT) 36 U/L Alkaline Phosphatase 76 U/L Total Creatine Kinase 68 U/L Creatine Kinase MB 6.6 ng/ml Creatine Kinase MB Ratio 9.7 Troponin I 0.944 ng/ml 1.030 ng/ml C-Reactive Protein 22.10 mg/dl Pro-B-Type Natriuretic Peptide > 87302 pg/ml Total Protein 7.2 gm/dl Albumin 2.5 gm/dl Globulin 4.7 gm/dl Albumin/Globulin Ratio 0.5 Venous Blood pH 7.32 Venous Blood Partial Pressure CO2 37 mmHg Venous Blood Partial Pressure O2 48 mmHg Venous Blood HCO3 19 mmol/L Venous Blood Oxygen Saturation 79.8 % Venous Blood Base Excess -6.7 mEq/L Bedside Lactic Acid Venous 1.58 mmol/L Test 04/07/17 06:46 04/07/17 07:00 Bedside Glucose 129 mg/dl Urine Color YELLOW Urine Appearance CLEAR Urine pH 6.5 Urine Specific [place] 1.017 Urine Protein 2+ Urine Glucose (UA) 1+ Urine Ketones TRACE Urine Occult Blood 1+ Urine Nitrite NEG Urine Bilirubin NEG Urine Urobilinogen NEG Urine Leukocyte Esterase NEG Urine WBC (Auto) 1-5 /hpf Urine RBC (Auto) 0-4 /hpf Urine Hyaline Casts (Auto) 1-5 /lpf Urine Epithelial Cells (Auto) 10-20 /lpf Urine Bacteria (Auto) NEG Impression (1) Right lower lobe pneumonia (2) Diarrhea (3) ESRD on hemodialysis (4) Hypertension (5) Diabetes mellitus Recommendations END STAGE RENAL DISEASE: -- Although patient missed his last two dialysis treatments his electrolyte balance is currently acceptable. He has no peripheral edema and is currently breathing comfortably on room air. He is significantly below his dry weight of 106 kg. No acute indication for HD today. Will schedule dialysis for tomorrow to resume patient's regular TTS schedule ANEMIA: -- No active bleeding at this time. Will order type and screen and recheck H&H in am. If Hgb continues to trend down will transfuse w/ HD tomorrow ID: -- CXR film reviewed today. Patient w/ RLL infiltrate. He does not appear to have significant pulmonary vascular congestion. Agree w/ starting empiric antibiotic therapy. Consider expanding regimen to cover anaerobes. ORTHO: -- Will request Orthopedic OV note for review -- Recommend Orthopedic consultation during hospitalization
[2017-04-07 11:58] LABS: HEMATOCRIT 24.3 % (42-52)
[2017-04-07] MEDS ORDERED: PANTOprazole SOD 40 MG TAB PO ONE (13:30)
--- NOTE | 2017-04-07 14:03 | Cardiology Consultation ---
Cardiology Consultation Date of Consultation: Apr 07, 2017. Requesting Physician: Grey Reason for Consultation: chest pain History of Present Illness The patient is a 81-year-old gentleman without a known history of cardiac disease who presented to [facility] with symptoms of dyspnea, chest pain and poor mobility. Patient had been admitted several times in the recent past primarily for GI concerns. Patient is on hemodialysis and reports several days ago suffering an injury while attempting to enter his or mobile after dialysis. It seems he was reaching for his car keys when he fell on his left side. There was an injury to the left arm and left chest wall. Since that time the patient had marked discomfort in that area and had some difficulty with mobility and transfers as result. He has not left his house in several days and has result has missed dialysis on 2 occasions. He was advised to go to the emergency room by his family due to his poor mobility, missing dialysis and symptoms of mild dyspnea. At the time of the exam the patient does report significant pain in the left side of his chest. This does appear to radiate to the sternal area. He also has some discomfort involving the arm. The symptoms are much worse in certain positions and with movement of the left arm. He also has significant pain with deep inspiration. He states that he does not feel short of breath but he does have some difficulty taking deep breaths related to the chest wall pain. If he is still and agrees normally he does not have significant pain in the chest. He has not noticed any lower extremity edema recently. With respect to his weight has been declining over the past several weeks. Generally he is a sedentary individual was limited primarily by leg weakness and orthopedic complaints. He ambulates primarily with a cane or occasionally a walker. With activity he does not report symptoms of chest discomfort in general. He denies orthopnea or paroxysmal nocturnal dyspnea. He denies any sense of palpitations. He has not been dizzy lately or suffered a syncopal episode. 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 Retired for 25 years Review of Systems Patient continues to have episodes of diarrhea, reporting 4 episodes over the course of his admission so far. He does have an element of anorexia. He denies current abdominal discomfort. No dysphagia or odynophagia. He does report some difficulty with dialysis due to numbness tingling and pain in the left hand with use of his left arm fistula. All Other Systems: Reviewed and Negative Allergies Coded Allergies: No Known Allergies (Unverified , 04/06/17) Medications Current Inpatient Medications Medications (Trade) Dose Ordered Sig/Brennan Route Start Time Stop Time Status Last Admin Dose Admin Amlodipine Besylate (Norvasc Tab) 5 mg QAM PO 04/07/17 09:00 05/07/17 08:59 04/07/17 07:50 5 MG Diphenhydramine HCl (Benadryl Cap) 25 mg Q8H PRN PO 04/07/17 00:00 05/07/17 00:00 Insulin Glargine (Lantus Solostar Pen) 30 units HS SQ 04/07/17 21:00 05/07/17 20:59 Metoprolol Succinate (Toprol Xl Tab) 50 mg QPM PO 04/07/17 21:00 05/07/17 20:59 Multivitamins/ Minerals (Multivitamin W/ Minerals Tab) 2 tab DAILY PO 04/07/17 09:00 05/07/17 08:59 04/07/17 07:50 2 TAB Oxycodone/ Acetaminophen (Percocet 5-325mg Tab) 1 tab Q8 PRN PO 04/07/17 00:00 04/21/17 00:00 04/07/17 02:41 1 TAB Ranitidine HCl (zANTac TAB) 150 mg HS PO 04/07/17 21:00 05/07/17 20:59 Sodium Bicarbonate (Sodium Bicarbonate Tab) 650 mg BIDM PO 04/07/17 07:30 05/07/17 07:59 04/07/17 07:50 650 MG Vitamin B Complex/ Vit C/Folic Acid (Nephrocaps) 1 cap DAILY PO 04/07/17 09:00 05/07/17 08:59 04/07/17 07:50 1 CAP Acetaminophen (Tylenol Tab) 650 mg Q4H PRN PO 04/07/17 00:00 05/07/17 00:00 Al Hydrox/Mg Hydrox/Simethicone (Maalox Max Susp) 15 ml Q4H PRN PO 04/07/17 00:00 05/07/17 00:00 Magnesium Hydroxide (Milk Of Magnesia Susp) 30 ml Q12H PRN PO 04/07/17 00:00 05/07/17 00:00 Ondansetron HCl (Zofran Inj) 4 mg Q6H PRN IV 04/07/17 00:00 05/07/17 00:00 Polyethylene (Miralax Powder Packet) 17 gm DAILY PRN PO 04/07/17 00:00 05/07/17 00:00 Levofloxacin 500 mg/Prmx 100 ml @ 100 mls/hr Q48H IV 04/08/17 22:00 04/13/17 21:59 Levofloxacin (Consult) 1 ea UD PRN N/A 04/07/17 04:00 05/07/17 03:59 Albuterol/ Ipratropium (Duoneb) 3 ml QIDR INH 04/07/17 12:00 05/07/17 11:59 04/07/17 11:29 3 ML Pantoprazole Sodium (Protonix Tab) 40 mg QAM PO 04/08/17 09:00 05/08/17 08:59 Physical Exam Vital Signs Past 12 Hours Date Time Temp Pulse Resp B/P (MAP) Pulse Ox O2 Delivery O2 Flow Rate FiO2 04/07/17 11:36 Room Air 04/07/17 11:35 88 18 98 Room Air 04/07/17 11:13 36.9 90 16 139/68 (91) 92 Room Air 04/07/17 08:06 36.7 88 18 135/72 (93) 92 04/07/17 08:00 Room Air 04/07/17 07:53 146/74 (98) 04/07/17 02:20 36.5 99 22 119/70 94 Room Air 04/07/17 02:15 104 21 115/58 94 04/07/17 02:05 104 21 115/58 94 Room Air The patient is alert and oriented. Mood and affect appeared normal. He answered all questions appropriately. HEENT: Pupils are equal and reactive to light and accommodation. Extraocular movements are intact. The sclerae are anicteric. Neuro: Cranial nerves intact Neck: Patient's neck is supple. He has palpable carotid pulses bilaterally without bruits on auscultation. There is no evidence of jugular venous distention. The thyroid is not enlarged. Lungs: Clear to auscultation bilaterally but overall poor excursion due to splinting. He has good air movement without use of accessory muscles. No rales wheezes or rhonchi. Cardiac: Heart demonstrates a regular rate and rhythm. Normal S1 and S2. No murmurs on examination. Pulses: Palpable pulse in the left arm fistula Extremities: There was no evidence of hypoperfusion. There is no cyanosis or clubbing. There is no edema. He has marked ecchymosis involving the left arm Skin: I did not appreciate any rashes on examination today. Ecchymosis involving left chest wall Data Laboratory Results: Last 24 Hours Test 04/06/17 21:20 04/06/17 21:45 04/06/17 21:50 04/07/17 06:12 White Blood Count 18.64 K/uL 13.43 K/uL Red Blood Count 2.91 M/uL 2.60 M/uL Hemoglobin 8.9 g/dL 7.9 g/dL Hematocrit 26.5 % 23.4 % Mean Corpuscular Volume 91.1 fL 90.0 fL Mean Corpuscular Hemoglobin 30.6 pg 30.4 pg Mean Corpuscular Hemoglobin Concent 33.6 g/dl 33.8 g/dl Platelet Count 294 K/uL 288 K/uL Mean Platelet Volume 12.1 fL 12.2 fL Neutrophils (%) (Auto) 82.6 % Lymphocytes (%) (Auto) 5.1 % Monocytes (%) (Auto) 10.9 % Eosinophils (%) (Auto) 0.6 % Basophils (%) (Auto) 0.3 % Neutrophils # (Auto) 15.38 K/uL Lymphocytes # (Auto) 0.95 K/uL Monocytes # (Auto) 2.03 K/uL Eosinophils # (Auto) 0.12 K/uL Basophils # (Auto) 0.06 K/uL RDW Standard Deviation 55.1 fL 54.2 fL RDW Coefficient of Variation 16.7 % 16.5 % Immature Granulocyte % (Auto) 0.5 % Immature Granulocyte # (Auto) 0.10 K/uL Anisocytosis PRESENT Erythrocyte Sedimentation Rate > 90 mm/hr Prothrombin Time 10.0 SECONDS Prothromb Time International Ratio 0.9 Activated Partial Thromboplast Time 26.7 SECONDS Partial Thromboplastin Ratio 1.0 Sodium Level 135 mmol/L Potassium Level 4.0 mmol/L Chloride Level 100 mmol/L Carbon Dioxide Level 19 mmol/L Anion Gap 16.0 mmol/L Blood Urea Nitrogen 85 mg/dl Creatinine 8.70 mg/dl Est Creatinine Clear Calc Drug Dose 8.0 ml/min Estimated GFR () 6.0 Estimated GFR (Non- 5.2 BUN/Creatinine Ratio 9.8 Random Glucose 178 mg/dl Calcium Level 9.8 mg/dl Total Bilirubin 0.5 mg/dl Aspartate Amino Transf (AST/SGOT) 30 U/L Alanine Aminotransferase (ALT/SGPT) 36 U/L Alkaline Phosphatase 76 U/L Total Creatine Kinase 68 U/L Creatine Kinase MB 6.6 ng/ml Creatine Kinase MB Ratio 9.7 Troponin I 0.944 ng/ml 1.030 ng/ml C-Reactive Protein 22.10 mg/dl Pro-B-Type Natriuretic Peptide > 85604 pg/ml Total Protein 7.2 gm/dl Albumin 2.5 gm/dl Globulin 4.7 gm/dl Albumin/Globulin Ratio 0.5 Venous Blood pH 7.32 Venous Blood Partial Pressure CO2 37 mmHg Venous Blood Partial Pressure O2 48 mmHg Venous Blood HCO3 19 mmol/L Venous Blood Oxygen Saturation 79.8 % Venous Blood Base Excess -6.7 mEq/L Bedside Lactic Acid Venous 1.58 mmol/L Test 04/07/17 06:46 04/07/17 07:00 04/07/17 11:41 04/07/17 13:17 Bedside Glucose 129 mg/dl Urine Color YELLOW Urine Appearance CLEAR Urine pH 6.5 Urine Specific Dillon 1.017 Urine Protein 2+ Urine Glucose (UA) 1+ Urine Ketones TRACE Urine Occult Blood 1+ Urine Nitrite NEG Urine Bilirubin NEG Urine Urobilinogen NEG Urine Leukocyte Esterase NEG Urine WBC (Auto) 1-5 /hpf Urine RBC (Auto) 0-4 /hpf Urine Hyaline Casts (Auto) 1-5 /lpf Urine Epithelial Cells (Auto) 10-20 /lpf Urine Bacteria (Auto) NEG Hemoglobin 8.3 g/dL Hematocrit 24.3 % Imaging: Chest x-ray which did not demonstrate any fractures or evidence of pulmonary vascular congestion. There is suggestion of a right lobar infiltrate EKG: Sinus rhythm with PVCs Telemetry reviewed: No significant arrhythmia Assessment & Plan 1. Chest pain: Patient's current chest pain seems most consistent with his recent injury. He has a pleuritic component it and it is clearly worse with deep inspiration. He is also tender on palpation. While he is relatively sedentary he does not report exertional chest discomfort. He likely has an element of coronary artery disease based on his known vascular disease and history of diabetes with associated complications. However, in the absence of notable left ventricular dysfunction or angina there is no clear indication for interventional therapy. 2. Dyspnea: Does have a markedly elevated N terminal proBNP, but interpretation is unclear in the setting of his end-stage renal disease. He certainly could have an element of pulmonary vascular congestion based on his absence of dialysis for several days although he does make urine at home in his weight is down overall. He has no other signs of peripheral edema. His lung exam is complicated by his inability to take a deep breath. Chest x-ray did not demonstrate significant edema but he does have possible infiltrate. I think most of his dyspnea is related to splinting. I would advocate simply Re initiating his dialysis as recommended by the Nephrology Service. 3. Elevated biomarkers: Patient does have elevated cardiac troponin. The overall value appears to be stable. This may be a chronic elevation based on his renal disease. There did not appear to be any additional values available for comparison. I think we can continue to trend these markers and if they stay around the same level I would not pursue any additional evaluation. Evaluation is LV function may be helpful in interpreting these values or determining whether more aggressive therapy or evaluation is of benefit. Performance of the echocardiogram may be complicated by his current discomfort in the left chest wall. Once again, he likely has significant coronary disease based on his other comorbidities, in the absence of angina or significantly reduced LV systolic function additional evaluation is of unclear benefit. He would benefit from continued risk factor modification including his atorvastatin , aspirin
[2017-04-07 14:06] LABS: BUN/CREATININE RATIO 9.9 (10-20); CREATININE 8.9 mg/dl (0.60-1.40); POTASSIUM 3.9 mmol/L (3.5-5.1)
[2017-04-07 19:02] LABS: HEMATOCRIT 24.8 % (42-52)
[2017-04-07] MEDS ORDERED: PIPERACILL/TAZOBAC CONSULT ACTIVE PRN (19:15)
[2017-04-07] MEDS ORDERED: VANCOMYCIN CONSULT ACTIVE PRN (19:15)
[2017-04-07] MEDS ORDERED: PIPERACILL/TAZOBAC IV 3.375 GM in DEXTROSE 5% 100ML IV ONE (19:30)
[2017-04-07] MEDS: VANCOMYCIN INJ 2,000 MG in SODIUM CHLORIDE 0.9% 500ML 500 ML IV ONE ×2 (19:30→19:46)
--- NOTE | 2017-04-07 20:57 | Pharmacy Progress Note ---
Pharmacy Abx Dose Short Note Date of Service Apr 07, 2017. Assessment & Plan Pt is a 81yo M being empirically treated with Vanco/Zosyn. He was on IV LVQ previously this admission. He is a dialysis pt on a TTS schedule. BCx2 are both pending. I have ordered a MRSA nasal swab to help guide de-escalation. Vanco: * Vanco 2000mg (20mg/kg) IV x1 to achieve a peak of about 30mcg/mL * I have ordered a random Pre-HD lvl to be drawn 04/08 @0444. I am unsure of his urine output at this juncture. * Goal trough: 15-20mcg/mL for suspected PNA Zosyn: * Zosyn 3.375gx1 30min infsn then EI Zosyn [id number], appropriate for eCrCl<20cc /min and clinical status Pharmacy will continue to follow and will adjust dose/frequency as necessary. Thank you.
[2017-04-07] MEDS ORDERED: VANCOMYCIN INJ 1,000 MG in SODIUM CHLORIDE 0.9% 250ML 250 ML IV SCH (21:00)
[2017-04-07] MEDS ORDERED: INSULIN GLARGINE SOLOSTAR 100 UNITS/ML 3 ML PEN SQ SCH (21:00)
[2017-04-07] MEDS ORDERED: RANITIDINE HCL 150 MG TAB PO SCH (21:00)
[2017-04-07] MEDS ORDERED: METOPROLOL SUCC 50MG EXT REL TAB PO SCH (21:00)
[2017-04-07] MEDS ORDERED: CALCIUM CHLORIDE 10% 10 ML SYR ONE ×2 (21:03→21:09)
[2017-04-07] MEDS ORDERED: RAPID SEQUENCE INDUCTION BAG ONE (21:03)
[2017-04-07] MEDS ORDERED: INSULIN REGULAR 10 UNITS in SYRINGE 9.9 ML IV STA (21:29)
[2017-04-07] MEDS ORDERED: AMIODARONE 360MG / 200ML D5W ONE (21:32)
[2017-04-07 21:40] LABS: ISTAT ARTERIAL BLOOD GAS HCO3 11 meq/L (19-24); ISTAT ARTERIAL BLOOD GAS PCO2 47 mmHg (35-46); ISTAT ARTERIAL BLOOD GAS PO2 82 mmHg (80-95); ISTAT ARTERIAL BLOOD GAS pH 6.97 (7.35-7.45); ISTAT CARBON DIOXIDE 12 mEq/l (24-31); ISTAT HEMATOCRIT 26 % (42-52); ISTAT HEMOGLOBIN 8.8 g/dl (14.0-18.0); ISTAT SODIUM 131 mEq/L (135-144)
[2017-04-07] MEDS ORDERED: CHOLESTYRAMINE LIGHT 4 GM PKT PO SCH (22:00)
[2017-04-07] MEDS ORDERED: PIPERACILL/TAZOBAC IV 3.375 GM in DEXTROSE 5% 100ML 100 ML IV SCH (22:00)
[2017-04-07 22:12] LABS: PARTIAL THROMBOPLASTIN RATIO 1.5; PROTHROMBIN TIME (PATIENT) 11.2 SECONDS (9.0-12.0)
--- NOTE | 2017-04-07 22:14 | DIAGNOSTIC IMAGING REPORT ---
CHEST ONE VIEW PORTABLE CLINICAL HISTORY: s/p cardiac arrest tube position COMPARISON STUDY: 04/06/2017 10:20 PM FINDINGS: Endotracheal tube 1 cm above the shilpi. Findings of developing pulmonary edema. Diaphragms smooth. IMPRESSION: Endotracheal tube 1 cm above the shilpi. Developing pulmonary edema. The above report was generated using voice recognition software. It may contain grammatical, syntax or spelling errors. Electronically signed by: Santos Delgado M.D. 04/07/2017 10:12 PM Dictated Date/Time: 04/07/2017 10:11 PM
[2017-04-07] MEDS ORDERED: METOPROLOL TARTRATE 1 MG/ML VIAL IV STA ×3 (22:24→23:05)
[2017-04-07] MEDS ORDERED: METOPROLOL TARTRATE 1 MG/ML VIAL ONE (22:26)
[2017-04-07 22:31] LABS: MEAN CORPUSCULAR HEMOGLOBIN 30.1 pg (25-34); MEAN PLATELET VOLUME 12.5 fL (7.4-10.4); PLATELET COUNT 194 K/uL (130-400); RED BLOOD COUNT 2.66 M/uL (4.7-6.1); WHITE BLOOD COUNT 15.33 K/uL (4.8-10.8)
[2017-04-07 22:32] LABS: BASO % 0.5 %; BASO ABS # 0.08 K/uL (0-0.2); COMPLETE YES; IG% 6.7 %; LYMPH % 24.2 %; LYMPH ABS # 3.71 K/uL (1.2-3.4); MONO % 5.9 %; NEUT % 61.7 %; POIKILOCYTOSIS PRESENT; SCHISTOCYTES OCCASIONAL
[2017-04-07 22:37] LABS: ALB/GLOB RATIO 0.5 (0.9-2); BUN/CREATININE RATIO 9.5 (10-20); CALCIUM 11.1 mg/dl (8.5-10.1); CREATININE 9.2 mg/dl (0.60-1.40); POTASSIUM 3.7 mmol/L (3.5-5.1)
[2017-04-07] MEDS ORDERED: PHENYLEPHRINE HCL INJ 20 MG in DEXTROSE 5% 500ML 500 ML IV PRN ×2 (22:43→23:00)
--- NOTE | 2017-04-07 22:45 | Progress Note ---
Progress Note Date of Service Apr 07, 2017. Progress Note Code Blue - cardiac arrest Report to follow
[2017-04-07 22:49] LABS: ISTAT ARTERIAL BLOOD GAS HCO3 17 meq/L (19-24); ISTAT ARTERIAL BLOOD GAS PCO2 61 mmHg (35-46); ISTAT ARTERIAL BLOOD GAS PO2 56 mmHg (80-95); ISTAT ARTERIAL BLOOD GAS pH 7.04 (7.35-7.45); ISTAT CARBON DIOXIDE 18 mEq/l (24-31); ISTAT HEMATOCRIT 23 % (42-52); ISTAT HEMOGLOBIN 7.8 g/dl (14.0-18.0); ISTAT SODIUM 137 mEq/L (135-144)
[2017-04-07] MEDS ORDERED: NOREPINEPHRINE BIT INJ 8 MG in DEXTROSE 5% 500ML 500 ML IV PRN (22:50)
[2017-04-07] MEDS ORDERED: FENTANYL 1250MCG/250ML NSS 250 ML IV PRN (22:50)
[2017-04-07] MEDS ORDERED: MIDAZOLAM 125MG/250ML D5W 250 ML IV PRN (22:50)
[2017-04-07 22:51] LABS: HEMATOCRIT 24.4 % (42-52); MEAN CELL VOLUME 93.1 fL (80-100); MEAN CORPUSCULAR HEMOGLOBIN 29.8 pg (25-34); MEAN PLATELET VOLUME 11.5 fL (7.4-10.4); PLATELET COUNT 280 K/uL (130-400); RED BLOOD COUNT 2.62 M/uL (4.7-6.1); WHITE BLOOD COUNT 22.99 K/uL (4.8-10.8)
[2017-04-07] MEDS ORDERED: ARTIFICIAL TEARS OP OINT 3.5 GM TUBE OPB PRN (23:00)
[2017-04-07] MEDS ORDERED: MEPERIDINE HCL 25 MG/ML CARP IV PRN (23:00)
[2017-04-07] MEDS ORDERED: BusPIRone 15 MG TAB NG PRN (23:00)
[2017-04-07 23:05] LABS: BETA-HYDROXYBUTYRATE 12.14 mg/dL (0.2-2.81)
--- NOTE | 2017-04-07 23:05 | EMERGENCY ROOM VISIT NOTE ---
ED Visit Note First contact with patient: 21:06 Endotracheal Intubation Indication respiratory arrest. The patient was on 100% oxygen via NRB prior to the procedure. Suction, airway equipment, RSI drugs, respiratory equipment, and appropriate personnel were prepared prior to the initiation of the procedure. A time out was taken. Induction was performed with Etomidate and Rocuronium. After observing the clinical benefit of the medications, the airway was easily visualized utilizing a Mac 4 blade . A 7.5 size ETT tube was placed atraumatically to 22 cm using standard technique. The cuff inflated without signs of malfunction. There were bilateral breath sounds, positive colormetric change, no gastric sounds, a good capnography waveform, and post procedure pulse oximetry was 91%. Femoral Central Venous Catheter Indication: Cardiac arrest Catheter Type: Triple lumen Location: Left femoral vein The correct patient and site identified. The patient was placed in the supine position and the skin was prepped in the standard fashion with chlorhexidine and full sterile drapes applied. The proper landmarks were identified and the needle was inserted through the skin in the standard fashion. The needle was carefully advanced into blood vessel lumen. The guidewire was placed uneventfully. The vessel is dilated and the catheter was placed. It was sutured into position. There was good blood return from all ports. The patient tolerated the procedure well and there were no complications. Arterial line placement. Indication: Cardiac arrest Arterial line was placed in the right wrist using the arterial line catheter kit. The area was cleansed using skin cleanser. The radial artery was cannulated using the arterial catheter. This was hooked up to a pressure bag and sewn into place. The patient tolerated procedure well.
[2017-04-07] MEDS ORDERED: OPTIRAY 320 IV PRN (23:15)
[2017-04-07 23:24] LABS: BUN/CREATININE RATIO 9.7 (10-20); CALCIUM 9.5 mg/dl (8.5-10.1); CREATININE 8.7 mg/dl (0.60-1.40); MAGNESIUM 3.3 mg/dl (1.8-2.4)
[2017-04-07 23:33] LABS: BASO % 0.3 %; BASO ABS # 0.06 K/uL (0-0.2); COMPLETE YES; ECHINOCYTES 1+; EOS % 0.6 %; IG% 4.7 %; LYMPH % 5.2 %; MONO % 3.6 %; NEUT % 85.6 %; POLYCHROMASIA 1+
[2017-04-07 23:45] LABS: BETA-HYDROXYBUTYRATE 7.67 mg/dL (0.2-2.81)
[2017-04-07] MEDS ORDERED: INSULIN IV INFUSION PROTOCOL STA (23:51)
[2017-04-08] VITALS (92 sets, daily range): BP systolic 86–129; BP diastolic 36–78; PULSE 61–109; TEMP 34.9–35.4; O2SAT 70–100
[2017-04-08] MEDS ORDERED: DC ALL PREVIOUSLY ORDERED DIABETES MEDS ONE
[2017-04-08] MEDS ORDERED: INSULIN PROTOCOL GOAL RANGE ONE
[2017-04-08] MEDS ORDERED: SODIUM BICARB 8.4% INJ 50 MEQ/50 ML SYR IV ONE
[2017-04-08] MEDS ORDERED: SEVERE STRESS LEVEL ONE
[2017-04-08] MEDS ORDERED: INSULIN HUMAN REGULAR IV BOLUS 3.5 UNIT in SYRINGE 0 ML IV SCH (00:15)
[2017-04-08] MEDS: INSULIN REGULAR 250 UNITS in SODIUM CHLORIDE 0.9% 250ML 250 ML IV SCH ×2 (00:40→11:46)
[2017-04-08] MEDS: PHENYLEPHRINE HCL INJ 40 MG in DEXTROSE 5% 500ML 500 ML IV PRN ×4 (00:41→13:46)
--- NOTE | 2017-04-08 01:00 | Nephrology Progress Note ---
Nephrology Progress Note Date of Service Apr 08, 2017. Chief Complaint ESRD on HD Subjective Called to see patient by Dr. Weller. Patient suffered CP arrest. ECG revealed prolonged QTc 604 msec. He was successfully resuscitated and transferred to ICU. ABG revealed pH 6.9 w/ PCO2 47 HCO3 11. Serum lactate was 9.0. HD requested to help correct metabolic acidosis. Vital Signs Last 8 Hrs Date Time Temp Pulse Resp B/P (MAP) Pulse Ox O2 Delivery O2 Flow Rate FiO2 04/07/17 22:19 100 04/07/17 22:00 36.5 137 20 142/89 (106) 92 Mechanical Ventilator 100 04/07/17 20:00 95 Room Air 04/07/17 19:16 36.4 107 18 128/68 (88) 95 Room Air 04/07/17 19:07 88 18 92 Room Air Last Recorded Weight Weight (Kilograms): 98.700 Physical Exam General Appearance: + pertinent finding (sedated. Mechanically ventilated) Head: atraumatic Eyes: PERRL Respiratory/Chest: + pertinent finding (coarse breath sounds bilaterally) Cardiovascular: regular rate, rhythm Abdomen/GI: soft (no bowel sounds) Extremities/Musculoskelatal: + pertinent finding (L arm AVF w/ soft bruit) Neurologic/Psych: + pertinent finding (sedated) Family History No pertinent family history Negative for CKD / ESRD Social History Drug Use: none Marital Status: Housing Status: lives with family Occupation: retired . has Alzheimers and requires home health nursing. Patient is retired. Current smoker Laboratory Results Past 24 Hours 04/07/17 06:12 04/07/17 11:41 04/07/17 18:43 04/07/17 21:40 Red Blood Count 2.66, Mean Corpuscular Volume 94.0, Mean Corpuscular Hemoglobin 30.1, Mean Corpuscular Hemoglobin Concent 32.0, Mean Platelet Volume 12.5, Neutrophils (%) (Auto) 61.7, Lymphocytes (%) (Auto) 24.2, Monocytes (%) (Auto) 5.9, Eosinophils (%) (Auto) 1.0, Basophils (%) (Auto) 0.5, Neutrophils # (Auto) 9.46, Lymphocytes # (Auto) 3.71, Monocytes # (Auto) 0.90, Eosinophils # (Auto) 0.16, Basophils # (Auto) 0.08 04/07/17 22:40 Red Blood Count 2.62, Mean Corpuscular Volume 93.1, Mean Corpuscular Hemoglobin 29.8, Mean Corpuscular Hemoglobin Concent 32.0, Mean Platelet Volume 11.5, Neutrophils (%) (Auto) 85.6, Lymphocytes (%) (Auto) 5.2, Monocytes (%) (Auto) 3.6, Eosinophils (%) (Auto) 0.6, Basophils (%) (Auto) 0.3, Neutrophils # (Auto) 19.68, Lymphocytes # (Auto) 1.20, Monocytes # (Auto) 0.83, Eosinophils # (Auto) 0.13, Basophils # (Auto) 0.06 04/07/17 13:17 04/07/17 21:42 04/07/17 22:40 Test 04/07/17 06:12 04/07/17 06:46 04/07/17 07:00 04/07/17 13:17 Red Blood Count 2.60 M/uL (4.7-6.1) Mean Corpuscular Volume 90.0 fL (80-100) Mean Corpuscular Hemoglobin 30.4 pg (25-34) Mean Corpuscular Hemoglobin Concent 33.8 g/dl (32-36) RDW Standard Deviation 54.2 fL (36.4-46.3) RDW Coefficient of Variation 16.5 % (11.5-14.5) Mean Platelet Volume 12.2 fL (7.4-10.4) Troponin I 1.030 ng/ml (0-0.045) 0.917 ng/ml (0-0.045) Bedside Glucose 129 mg/dl (70-99) Urine Color YELLOW Urine Appearance CLEAR (CLEAR) Urine pH 6.5 (4.5-7.5) Urine Specific Latta 1.017 (1.000-1.030) Urine Protein 2+ (NEG) Urine Glucose (UA) 1+ (NEG) Urine Ketones TRACE (NEG) Urine Occult Blood 1+ (NEG) Urine Nitrite NEG (NEG) Urine Bilirubin NEG (NEG) Urine Urobilinogen NEG (NEG) Urine Leukocyte Esterase NEG (NEG) Urine WBC (Auto) 1-5 /hpf (0-5) Urine RBC (Auto) 0-4 /hpf (0-4) Urine Hyaline Casts (Auto) 1-5 /lpf (0-5) Urine Epithelial Cells (Auto) 10-20 /lpf (0-5) Urine Bacteria (Auto) NEG (NEG) Anion Gap 15.0 mmol/L (3-11) Est Creatinine Clear Calc Drug Dose 7.8 ml/min Estimated GFR () 5.9 Estimated GFR (Non- 5.1 BUN/Creatinine Ratio 9.9 (10-20) Calcium Level 10.0 mg/dl (8.5-10.1) Chemistry Specimen Hemolysis Test 04/07/17 16:29 04/07/17 20:11 04/07/17 21:30 04/07/17 21:40 Bedside Glucose 172 mg/dl (70-99) 213 mg/dl (70-99) Bedside Hemoglobin 8.8 g/dl (14.0-18.0) Bedside Hematocrit 26 % (42-52) Bedside Blood Gas pH (LAB) 6.97 (7.35-7.45) Bedside Blood Gas pCO2 (LAB) 47 mmHg (35-46) Bedside Blood Gas pO2 (LAB) 82 mmHg (80-95) Bedside Blood Gas HCO3 (LAB) 11 meq/L (19-24) Bedside Blood Gas Total CO2 12 mEq/l (24-31) Bedside Blood Gas Base Excess (LAB) -21.0 meq/L (-9-1.8) Bedside Blood Gas O2 Saturation 87.0 % (90-95) Bedside Sodium 131 mEq/L (135-144) Bedside Potassium 4.0 mEq/L (3.3-5.0) White Blood Count 15.33 K/uL (4.8-10.8) Red Blood Count 2.66 M/uL (4.7-6.1) Hemoglobin 8.0 g/dL (14.0-18.0) Hematocrit 25.0 % (42-52) Mean Corpuscular Volume 94.0 fL (80-100) Mean Corpuscular Hemoglobin 30.1 pg (25-34) Mean Corpuscular Hemoglobin Concent 32.0 g/dl (32-36) Platelet Count 194 K/uL (130-400) Mean Platelet Volume 12.5 fL (7.4-10.4) Neutrophils (%) (Auto) 61.7 % Lymphocytes (%) (Auto) 24.2 % Monocytes (%) (Auto) 5.9 % Eosinophils (%) (Auto) 1.0 % Basophils (%) (Auto) 0.5 % Neutrophils # (Auto) 9.46 K/uL (1.4-6.5) Lymphocytes # (Auto) 3.71 K/uL (1.2-3.4) Monocytes # (Auto) 0.90 K/uL (0.11-0.59) Eosinophils # (Auto) 0.16 K/uL (0-0.5) Basophils # (Auto) 0.08 K/uL (0-0.2) RDW Standard Deviation 57.3 fL (36.4-46.3) RDW Coefficient of Variation 16.7 % (11.5-14.5) Immature Granulocyte % (Auto) 6.7 % Immature Granulocyte # (Auto) 1.02 K/uL (0.00-0.02) Nucleated RBC Absolute Count (auto) 0.13 K/uL (0-0) Nucleated Red Blood Cells % 0.8 % Poikilocytosis PRESENT Schistocytes OCCASIONAL Prothrombin Time 11.2 SECONDS (9.0-12.0) Prothromb Time International Ratio 1.0 (0.9-1.1) Activated Partial Thromboplast Time 39.8 SECONDS (21.0-31.0) Partial Thromboplastin Ratio 1.5 Test 04/07/17 21:42 04/07/17 22:37 04/07/17 22:40 04/07/17 22:50 Anion Gap 20.0 mmol/L (3-11) 19.0 mmol/L (3-11) Est Creatinine Clear Calc Drug Dose 7.5 ml/min 8.0 ml/min Estimated GFR () 5.6 6.0 Estimated GFR (Non- 4.9 5.2 BUN/Creatinine Ratio 9.5 (10-20) 9.7 (10-20) Calcium Level 11.1 mg/dl (8.5-10.1) 9.5 mg/dl (8.5-10.1) Total Bilirubin 0.3 mg/dl (0.2-1) 0.5 mg/dl (0.2-1) Aspartate Amino Transf (AST/SGOT) 185 U/L (15-37) 250 U/L (15-37) Alanine Aminotransferase (ALT/SGPT) 131 U/L (12-78) 162 U/L (12-78) Alkaline Phosphatase 103 U/L (45-117) 115 U/L (45-117) Troponin I 0.588 ng/ml (0-0.045) Total Protein 6.3 gm/dl (6.4-8.2) 6.1 gm/dl (6.4-8.2) Albumin 2.1 gm/dl (3.4-5.0) 2.0 gm/dl (3.4-5.0) Globulin 4.2 gm/dl (2.5-4.0) Albumin/Globulin Ratio 0.5 (0.9-2) Beta-Hydroxybutyric Acid 12.14 mg/dL (0.2-2.81) 7.67 mg/dL (0.2-2.81) Bedside Hemoglobin 7.8 g/dl (14.0-18.0) Bedside Hematocrit 23 % (42-52) Bedside Blood Gas pH (LAB) 7.04 (7.35-7.45) Bedside Blood Gas pCO2 (LAB) 61 mmHg (35-46) Bedside Blood Gas pO2 (LAB) 56 mmHg (80-95) Bedside Blood Gas HCO3 (LAB) 17 meq/L (19-24) Bedside Blood Gas Total CO2 18 mEq/l (24-31) Bedside Blood Gas Base Excess (LAB) -14.0 meq/L (-9-1.8) Bedside Blood Gas O2 Saturation 73.0 % (90-95) Bedside Sodium 137 mEq/L (135-144) Bedside Potassium 3.6 mEq/L (3.3-5.0) White Blood Count 22.99 K/uL (4.8-10.8) Red Blood Count 2.62 M/uL (4.7-6.1) Hemoglobin 7.8 g/dL (14.0-18.0) Hematocrit 24.4 % (42-52) Mean Corpuscular Volume 93.1 fL (80-100) Mean Corpuscular Hemoglobin 29.8 pg (25-34) Mean Corpuscular Hemoglobin Concent 32.0 g/dl (32-36) Platelet Count 280 K/uL (130-400) Mean Platelet Volume 11.5 fL (7.4-10.4) Neutrophils (%) (Auto) 85.6 % Lymphocytes (%) (Auto) 5.2 % Monocytes (%) (Auto) 3.6 % Eosinophils (%) (Auto) 0.6 % Basophils (%) (Auto) 0.3 % Neutrophils # (Auto) 19.68 K/uL (1.4-6.5) Lymphocytes # (Auto) 1.20 K/uL (1.2-3.4) Monocytes # (Auto) 0.83 K/uL (0.11-0.59) Eosinophils # (Auto) 0.13 K/uL (0-0.5) Basophils # (Auto) 0.06 K/uL (0-0.2) RDW Standard Deviation 56.2 fL (36.4-46.3) RDW Coefficient of Variation 16.5 % (11.5-14.5) Immature Granulocyte % (Auto) 4.7 % Immature Granulocyte # (Auto) 1.09 K/uL (0.00-0.02) Nucleated RBC Absolute Count (auto) 0.04 K/uL (0-0) Nucleated Red Blood Cells % 0.2 % Polychromasia 1+ Echinocytes 1+ Lactic Acid Level 9.0 mmol/L (0.4-2.0) Phosphorus Level 9.0 mg/dl (2.5-4.9) Magnesium Level 3.3 mg/dl (1.8-2.4) Direct Bilirubin 0.2 mg/dl (0-0.2) Procalcitonin 0.65 ng/ml (0-0.5) Random Cortisol 49.33 mcg/dl Creatine Kinase MB Ratio (0-3.0) Test 04/07/17 23:10 Creatine Kinase MB 7.1 ng/ml (0.5-3.6) Troponin I 0.805 ng/ml (0-0.045) Allergies Coded Allergies: No Known Allergies (Unverified , 04/06/17) Medications Current Inpatient Medications Medications (Trade) Dose Ordered Sig/Brennan Route Start Time Stop Time Status Last Admin Dose Admin Amlodipine Besylate (Norvasc Tab) 5 mg QAM PO 04/07/17 09:00 05/07/17 08:59 Future Hold 04/07/17 07:50 5 MG Diphenhydramine HCl (Benadryl Cap) 25 mg Q8H PRN PO 04/07/17 00:00 05/07/17 00:00 Future Hold Insulin Glargine (Lantus Solostar Pen) 30 units HS SQ 04/07/17 21:00 05/07/17 20:59 Future Hold 04/07/17 19:51 30 UNITS Metoprolol Succinate (Toprol Xl Tab) 50 mg QPM PO 04/07/17 21:00 05/07/17 20:59 04/07/17 19:47 50 MG Sodium Bicarbonate (Sodium Bicarbonate Tab) 650 mg BIDM PO 04/07/17 07:30 05/07/17 07:59 04/07/17 16:09 650 MG Vitamin B Complex/ Vit C/Folic Acid (Nephrocaps) 1 cap DAILY PO 04/07/17 09:00 05/07/17 08:59 04/07/17 07:50 1 CAP Acetaminophen (Tylenol Tab) 650 mg Q4H PRN PO 04/07/17 00:00 05/07/17 00:00 Al Hydrox/Mg Hydrox/Simethicone (Maalox Max Susp) 15 ml Q4H PRN PO 04/07/17 00:00 05/07/17 00:00 Magnesium Hydroxide (Milk Of Magnesia Susp) 30 ml Q12H PRN PO 04/07/17 00:00 05/07/17 00:00 Albuterol/ Ipratropium (Duoneb) 3 ml QIDR INH 04/07/17 12:00 05/07/17 11:59 04/07/17 19:06 3 ML Pantoprazole Sodium (Protonix Tab) 40 mg QAM PO 04/08/17 09:00 05/08/17 08:59 Cholestyramine Resin (Questran Powder Light) 4 gm BID@10,22 PO 04/07/17 22:00 05/07/17 21:59 Future Hold Vancomycin HCl (Consult) 1 ea UD PRN N/A 04/07/17 19:15 05/07/17 19:14 Piperacillin Sod/ Tazobactam Sod (Consult) 1 ea UD PRN N/A 04/07/17 19:15 05/07/17 19:14 Piperacillin Sod/ Tazobactam Sod 3.375 gm/Dextrose 115 ml @ 28.75 mls/ hr Q12H IV 04/08/17 02:00 04/15/17 01:59 Artificial Tears (Lacri-Lube Oph Oint) 1 appln Q2H PRN OPB 04/07/17 23:00 05/07/17 22:59 Midazolam HCl 250 ml @ 0 mls/hr Q0M PRN IV 04/07/17 22:50 05/07/17 22:49 04/08/17 00:19 5 MLS/HR Fentanyl Citrate 250 ml @ 0 mls/hr Q0M PRN IV 04/07/17 22:50 04/21/17 22:49 04/08/17 00:22 5 MLS/HR Buspirone HCl (BusPAR TAB) 60 mg ONE PRN NG 04/07/17 23:00 05/07/17 22:59 Meperidine HCl (Demerol Inj) 25 mg Q2H PRN IV 04/07/17 23:00 04/21/17 22:59 Norepinephrine Bitartrate 8 mg/ Dextrose 508 ml @ 0 mls/hr Q0M PRN IV 04/07/17 22:50 05/07/17 22:49 Phenylephrine HCl 40 mg/Dextrose 504 ml @ 0 mls/hr Q0M PRN IV 04/07/17 23:15 05/07/17 23:14 04/08/17 00:41 174 MLS/HR Ioversol (Optiray 320) 100 ml UD PRN IV 04/07/17 23:15 04/11/17 23:14 Heparin Sodium (Porcine) (Heparin Sq 5000 Unit/0.5ml) 5,000 unit Q12H SQ 04/08/17 09:00 05/08/17 08:59 Insulin Aspart (novoLOG ASPART) SLIDING SCALE PCHS SC 04/08/17 08:00 05/08/17 07:59 Insulin Human Regular 250 units/ Sodium Chloride 252.5 ml @ 0 mls/hr DAILY@1130 IV 04/08/17 00:15 05/08/17 00:14 04/08/17 00:40 3.7 MLS/HR Impression (1) Right lower lobe pneumonia (2) Diarrhea (3) ESRD on hemodialysis (4) Hypertension (5) Diabetes mellitus Recommendations Upon my arrival patient was being transferred to ICU. He has been started on Neosynephrine gtt for blood pressure support and placed on cooling blanket. 3 amps NaHCO3 administered IV while HD was being set up. Tele revealed NSR. HD RN was able to access L arm AVF. Only able to obtain Qb 300 cc/min due to arterial alarms. Will dialyze for 3 hours this am [id number] 2.5 Ca 37 HCO3. Repeat laboratory studies ordered for 4:45 am. 90 minutes critical care time provided. This included time reviewing chart, examining patient, discussing care w/ ICU team and monitoring HD set up.
[2017-04-08] MEDS: PIPERACILL/TAZOBAC IV 3.375 GM in DEXTROSE 5% 100ML IV SCH ×2 (01:45→13:44)
[2017-04-08] MEDS ORDERED: NURSING VERBAL MED ORDER ONE ×2 (02:15→09:30)
[2017-04-08] MEDS: AMIODARONE / D5W 200 ML IV SCH ×2 (02:24→13:45)
--- NOTE | 2017-04-08 04:16 | Critical Care Consultation ---
Critical Care Consultation Date of Consultation: Apr 08, 2017. Attending Physician: Tamar Edmonds MD Reason for Consultation: Blessing Camargo: V. Fib/PEA Arrest History of Present Illness Elgin Galeano is a 81-year-old male who was admitted on April 07 for complaints of shortness of breath that had started approximately 5 days prior when the patient had fallen and reportedly broke his left clavicle. Per report patient had missed 2 dialysis treatments after his fall. Per emergency department records patient was barely able to speak due to his shortness of breath he also complained of cough, abdominal pain, left-sided chest pain. Otherwise patient had been seen at [facility] twice recently for chronic diarrhea. He had a full workup including endoscopy, colonoscopy, and HIDA scan. 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 With this visit to the emergency department patient was admitted to telemetry for suspicion of right lower lobe pneumonia. At approximately 2100 on 04/07 a [facility] was called for this patient. I presented along with resident Dr. Mitul Em and emergency room doctor Abdirahman Lassiter. Patient was originally noted to be in PEA and CPR had begun. Patient received 3 mg of epinephrine during code, 2 mg of magnesium, , 4 Amps of HCO3, and amiodarone bolus followed by titrating drip. During multiple episodes of ventricular tachycardia and unstable ventricular fibrillation patient was ultimately shocked 4 times. He did receive etomidate and Rocuronium and was intubated by Dr. Lassiter with a 7-1/2 ET tube placed at 22 cm. I then assisted Dr. Lassiter in placing a triple lumen left femoral catheter and a right radial arterial line. Patient's blood pressure remained stable throughout code was checked multiple times for a systolic between 130 and 150. It is my understanding that code was called secondary to patient's complaints of dizziness and nausea and then a witnessed loss of consciousness. Patient was transferred to the intensive care unit for further care and close observation. Review of systems could not be obtained secondary to patient sedation, intubation and condition. Past Medical/Surgical History Medical Problems: Diabetes mellitus with retinopathy Diarrhea ESRD on hemodialysis Hypertension Ischemic colitis Cardiac Arrest Respiratory Failure requiring intubation Hyperlipidemia Ankylosing Spondylitis Neuropathy pseudogout secondary hyperparathyroidism Vitamin D Deficiency Surgical History: Dialysis Access Neuorplasty Carpal Tunnel Release Knee Surgery Olecranon Bursa Excision Family History No pertinent family history Social History Smoking Status: Current Every Day Smoker Drug Use: none Marital Status: Occupation Status: retired Allergies Coded Allergies: No Known Allergies (Unverified , 04/06/17) Home Medications Scheduled Amlodipine Besylate (Norvasc), 5 MG PO QAM Aspirin (Aspir-81), 81 MG PO QAM Hydrocortisone (Topical) (Hydrocortisone), 1 APPLN EXT BID Insulin Aspart (Novolog Flexpen), 18 UNITS SC QAM Insulin Aspart (Novolog Flexpen), 19 UNITS SQ LUNCH Insulin Aspart (Novolog Flexpen), 22 UNITS SQ QPM Insulin Glargine (Lantus Solostar), 30-35 UNITS SQ HS Lidocaine-Prilocaine (Tlcpjhprr-Qhxycewxav-Bolg 2.5-2.5 %), 1 APPLN TOP UD Metoprolol Succinate (Metoprolol Succinate ER), 50 MG PO QPM Ocuvite Preservision (Ocuvite Preservision), 2 TABS PO DAILY Ranitidine (Zantac), 150 MG PO HS Sodium Bicarbonate (Antacid) (Sodium Bicarbonate), 650 MG PO BIDM Vitamin B Cmplx/Vitc/Folic Ac (Nephrocaps), 1 CAP PO DAILY Scheduled PRN Diphenhydramine Hcl (Benadryl Allergy), 1 CAP PO every 12 hours PRN for itching Oxycodone/Acetaminophen 5MG/325MG (Percocet 5MG/325MG), 1-2 TABLETS PO Q8 PRN for Pain Current Inpatient Medications Current Inpatient Medications Medications (Trade) Dose Ordered Sig/Brennan Route Start Time Stop Time Status Last Admin Dose Admin Amlodipine Besylate (Norvasc Tab) 5 mg QAM PO 04/07/17 09:00 05/07/17 08:59 Future Hold 04/07/17 07:50 5 MG Diphenhydramine HCl (Benadryl Cap) 25 mg Q8H PRN PO 04/07/17 00:00 05/07/17 00:00 Future Hold Insulin Glargine (Lantus Solostar Pen) 30 units HS SQ 04/07/17 21:00 05/07/17 20:59 Future Hold 04/07/17 19:51 30 UNITS Metoprolol Succinate (Toprol Xl Tab) 50 mg QPM PO 04/07/17 21:00 05/07/17 20:59 04/07/17 19:47 50 MG Sodium Bicarbonate (Sodium Bicarbonate Tab) 650 mg BIDM PO 04/07/17 07:30 05/07/17 07:59 04/07/17 16:09 650 MG Vitamin B Complex/ Vit C/Folic Acid (Nephrocaps) 1 cap DAILY PO 04/07/17 09:00 05/07/17 08:59 04/07/17 07:50 1 CAP Acetaminophen (Tylenol Tab) 650 mg Q4H PRN PO 04/07/17 00:00 05/07/17 00:00 Al Hydrox/Mg Hydrox/Simethicone (Maalox Max Susp) 15 ml Q4H PRN PO 04/07/17 00:00 05/07/17 00:00 Magnesium Hydroxide (Milk Of Magnesia Susp) 30 ml Q12H PRN PO 04/07/17 00:00 05/07/17 00:00 Albuterol/ Ipratropium (Duoneb) 3 ml QIDR INH 04/07/17 12:00 05/07/17 11:59 04/07/17 19:06 3 ML Pantoprazole Sodium (Protonix Tab) 40 mg QAM PO 04/08/17 09:00 05/08/17 08:59 Cholestyramine Resin (Questran Powder Light) 4 gm BID@10,22 PO 04/07/17 22:00 05/07/17 21:59 Future Hold Vancomycin HCl (Consult) 1 ea UD PRN N/A 04/07/17 19:15 05/07/17 19:14 Piperacillin Sod/ Tazobactam Sod (Consult) 1 ea UD PRN N/A 04/07/17 19:15 05/07/17 19:14 Piperacillin Sod/ Tazobactam Sod 3.375 gm/Dextrose 115 ml @ 28.75 mls/ hr Q12H IV 04/08/17 02:00 04/15/17 01:59 04/08/17 01:45 28.75 MLS/HR Artificial Tears (Lacri-Lube Oph Oint) 1 appln Q2H PRN OPB 04/07/17 23:00 05/07/17 22:59 Midazolam HCl 250 ml @ 0 mls/hr Q0M PRN IV 04/07/17 22:50 05/07/17 22:49 04/08/17 00:19 5 MLS/HR Fentanyl Citrate 250 ml @ 0 mls/hr Q0M PRN IV 04/07/17 22:50 04/21/17 22:49 04/08/17 00:22 5 MLS/HR Buspirone HCl (BusPAR TAB) 60 mg ONE PRN NG 04/07/17 23:00 05/07/17 22:59 Meperidine HCl (Demerol Inj) 25 mg Q2H PRN IV 04/07/17 23:00 04/21/17 22:59 Norepinephrine Bitartrate 8 mg/ Dextrose 508 ml @ 0 mls/hr Q0M PRN IV 04/07/17 22:50 05/07/17 22:49 Phenylephrine HCl 40 mg/Dextrose 504 ml @ 0 mls/hr Q0M PRN IV 04/07/17 23:15 05/07/17 23:14 04/08/17 00:41 174 MLS/HR Ioversol (Optiray 320) 100 ml UD PRN IV 04/07/17 23:15 04/11/17 23:14 Heparin Sodium (Porcine) (Heparin Sq 5000 Unit/0.5ml) 5,000 unit Q12H SQ 04/08/17 09:00 05/08/17 08:59 Insulin Aspart (novoLOG ASPART) [facility] 04/08/17 08:00 05/08/17 07:59 Insulin Human Regular 250 units/ Sodium Chloride 252.5 ml @ 0 mls/hr DAILY@1130 IV 04/08/17 00:15 05/08/17 00:14 04/08/17 00:40 3.7 MLS/HR Amiodarone HCL/ Dextrose 200 ml @ 16.7 mls/hr [id number] IV 04/08/17 02:30 05/08/17 02:29 04/08/17 02:24 16.7 MLS/HR Review of Systems ROS could not be obtained secondary to sedation, intubation, and condition. Physical Exam Date Time Temp Pulse Resp B/P (MAP) Pulse Ox O2 Delivery O2 Flow Rate FiO2 04/08/17 03:01 35.3 86 26 95/63 (68) 90 96/54 04/08/17 03:00 86 94/65 04/08/17 03:00 35.3 86 26 95/63 (74) 90 Mechanical Ventilator 100 94/51 (65) 04/08/17 02:46 35.2 86 26 96/56 (65) 90 95/51 04/08/17 02:45 88 101/58 04/08/17 02:31 35.2 91 26 100/62 (74) 87 105/57 04/08/17 02:30 90 101/64 04/08/17 02:17 100 04/08/17 02:16 35.2 90 26 102/63 (68) 88 101/53 04/08/17 02:15 91 100/62 04/08/17 02:11 35.2 92 26 100/62 (74) 88 106/58 04/08/17 02:06 35.2 94 26 116/64 (76) 88 107/59 04/08/17 02:01 35.2 90 26 100/66 (75) 88 107/58 04/08/17 02:00 35.2 94 26 100/57 (71) 87 Mechanical Ventilator 100 103/53 (70) 04/08/17 02:00 95 100/57 04/08/17 01:56 35.1 88 26 100/57 (66) 87 99/51 04/08/17 01:54 127 110/72 04/08/17 01:51 35.1 87 26 91/63 (70) 88 105/54 04/08/17 01:51 101 99/60 04/08/17 01:50 115 96/73 04/08/17 01:46 35.1 87 26 105/54 (64) 88 110/47 04/08/17 01:45 97 91/65 04/08/17 01:41 35.1 88 26 91/65 (71) 88 106/54 04/08/17 01:36 35.1 87 26 99/58 (65) 91 114/47 04/08/17 01:30 95 88/65 04/08/17 01:30 35.1 97 26 117/70 (75) 97 114/50 04/08/17 01:21 35.1 97 26 109/63 (76) 86 110/58 04/08/17 01:16 35.1 95 26 103/69 (77) 88 112/59 04/08/17 01:15 95 109/63 04/08/17 01:10 35.1 96 26 106/65 (72) 92 115/59 04/08/17 01:05 35.1 95 26 111/66 (87) 97 121/62 04/08/17 01:01 35.0 98 104/63 (77) 04/08/17 01:00 35.1 95 26 93/63 (67) 100 106/56 04/08/17 01:00 35.1 97 26 98/60 (73) 100 Mechanical Ventilator 100 111/56 (74) 04/08/17 01:00 96 106/65 04/08/17 00:55 35.3 96 26 98/60 (84) 73 113/61 04/08/17 00:53 98 104/63 04/08/17 00:50 35.3 98 26 104/63 (81) 74 112/58 04/08/17 00:45 98 103/62 04/08/17 00:45 35.3 98 26 103/62 (81) 74 112/58 04/08/17 00:40 35.3 100 26 102/63 (83) 76 110/59 04/08/17 00:35 35.3 102 26 102/63 (78) 74 111/59 04/08/17 00:30 35.3 102 26 108/66 (77) 74 117/62 04/08/17 00:25 35.3 106 26 112/65 (82) 70 118/63 04/08/17 00:21 35.3 107 26 104/78 (81) 116/63 04/08/17 00:16 35.3 109 26 110/78 (80) 120/59 04/08/17 00:15 35.3 109 26 (82) 122/61 04/08/17 00:01 35.3 109 26 114/59 (77) 74 Mechanical Ventilator 100 122/63 (82) 04/08/17 00:01 Mechanical Ventilator 04/08/17 00:01 100 04/08/17 00:00 99 26 100/62 (75) 04/07/17 23:58 99 26 96/48 (64) 04/07/17 23:15 106 26 108/64 (79) 04/07/17 23:00 101 26 99/60 (73) 04/07/17 22:52 107 26 106/49 (68) 04/07/17 22:45 113 26 96/73 (81) 04/07/17 22:30 124 20 106/73 (84) 04/07/17 22:19 100 04/07/17 22:16 126 20 108/49 (68) 04/07/17 22:15 126 20 108/48 (68) 04/07/17 22:01 137 142/86 (104) 92 04/07/17 22:00 36.5 137 20 142/89 (106) 92 Mechanical Ventilator 100 04/07/17 20:00 95 Room Air 04/07/17 19:16 36.4 107 18 128/68 (88) 95 Room Air 04/07/17 19:07 88 18 92 Room Air 04/07/17 16:15 86 18 92 Room Air 04/07/17 16:00 94 Room Air 04/07/17 15:35 36.6 97 16 134/69 (90) 93 Room Air 04/07/17 11:36 Room Air 04/07/17 11:35 88 18 98 Room Air 04/07/17 11:13 36.9 90 16 139/68 (91) 92 Room Air 04/07/17 08:06 36.7 88 18 135/72 (93) 92 04/07/17 08:00 Room Air 04/07/17 07:53 146/74 (98) Vital Signs - as noted Laboratory Data - as noted Physical Exam: General - Sedated on Versed/Fentanyl, Intubated Eyes - Pupils equal, round, slow to react ENT - Endotracheal tube in place Neck - Supple, trachea midline, no masses or lymphadenopathy, no JVD or bruits Lungs - No paradoxical chest wall movement, clear to auscultation bilaterally, no wheezes, rales, or rhonchi Heart - Reg rate and rhythm, No murmur, rubs, clicks, or gallops appreciated Abdomen -BS present, no bruits noted, tympanic to percussion, soft, nontender, mildly distended, no organomegaly Extremities - No edema, pedal pulses intact Neuro - RASS -3 Strength: Could not be assessed Laboratory Results Last 24 Hours Test 04/07/17 06:12 04/07/17 06:46 04/07/17 07:00 04/07/17 11:41 White Blood Count 13.43 K/uL Red Blood Count 2.60 M/uL Hemoglobin 7.9 g/dL 8.3 g/dL Hematocrit 23.4 % 24.3 % Mean Corpuscular Volume 90.0 fL Mean Corpuscular Hemoglobin 30.4 pg Mean Corpuscular Hemoglobin Concent 33.8 g/dl RDW Standard Deviation 54.2 fL RDW Coefficient of Variation 16.5 % Platelet Count 288 K/uL Mean Platelet Volume 12.2 fL Troponin I 1.030 ng/ml Bedside Glucose 129 mg/dl Urine Color YELLOW Urine Appearance CLEAR Urine pH 6.5 Urine Specific [place] 1.017 Urine Protein 2+ Urine Glucose (UA) 1+ Urine Ketones TRACE Urine Occult Blood 1+ Urine Nitrite NEG Urine Bilirubin NEG Urine Urobilinogen NEG Urine Leukocyte Esterase NEG Urine WBC (Auto) 1-5 /hpf Urine RBC (Auto) 0-4 /hpf Urine Hyaline Casts (Auto) 1-5 /lpf Urine Epithelial Cells (Auto) 10-20 /lpf Urine Bacteria (Auto) NEG Test 04/07/17 13:17 04/07/17 16:29 04/07/17 18:43 04/07/17 20:11 Sodium Level 135 mmol/L Potassium Level 3.9 mmol/L Chloride Level 99 mmol/L Carbon Dioxide Level 21 mmol/L Anion Gap 15.0 mmol/L Blood Urea Nitrogen 88 mg/dl Creatinine 8.90 mg/dl Est Creatinine Clear Calc Drug Dose 7.8 ml/min Estimated GFR () 5.9 Estimated GFR (Non- 5.1 BUN/Creatinine Ratio 9.9 Random Glucose 198 mg/dl Calcium Level 10.0 mg/dl Troponin I 0.917 ng/ml Chemistry Specimen Hemolysis Bedside Glucose 172 mg/dl 213 mg/dl Hemoglobin 8.0 g/dL Hematocrit 24.8 % Test 04/07/17 21:30 04/07/17 21:40 04/07/17 21:42 04/07/17 22:37 Bedside Hemoglobin 8.8 g/dl 7.8 g/dl Bedside Hematocrit 26 % 23 % Bedside Blood Gas pH (LAB) 6.97 7.04 Bedside Blood Gas pCO2 (LAB) 47 mmHg 61 mmHg Bedside Blood Gas pO2 (LAB) 82 mmHg 56 mmHg Bedside Blood Gas HCO3 (LAB) 11 meq/L 17 meq/L Bedside Blood Gas Total CO2 12 mEq/l 18 mEq/l Bedside Blood Gas Base Excess (LAB) -21.0 meq/L -14.0 meq/L Bedside Blood Gas O2 Saturation 87.0 % 73.0 % Bedside Sodium 131 mEq/L 137 mEq/L Bedside Potassium 4.0 mEq/L 3.6 mEq/L White Blood Count 15.33 K/uL Red Blood Count 2.66 M/uL Hemoglobin 8.0 g/dL Hematocrit 25.0 % Mean Corpuscular Volume 94.0 fL Mean Corpuscular Hemoglobin 30.1 pg Mean Corpuscular Hemoglobin Concent 32.0 g/dl Platelet Count 194 K/uL Mean Platelet Volume 12.5 fL Neutrophils (%) (Auto) 61.7 % Lymphocytes (%) (Auto) 24.2 % Monocytes (%) (Auto) 5.9 % Eosinophils (%) (Auto) 1.0 % Basophils (%) (Auto) 0.5 % Neutrophils # (Auto) 9.46 K/uL Lymphocytes # (Auto) 3.71 K/uL Monocytes # (Auto) 0.90 K/uL Eosinophils # (Auto) 0.16 K/uL Basophils # (Auto) 0.08 K/uL RDW Standard Deviation 57.3 fL RDW Coefficient of Variation 16.7 % Immature Granulocyte % (Auto) 6.7 % Immature Granulocyte # (Auto) 1.02 K/uL Nucleated RBC Absolute Count (auto) 0.13 K/uL Nucleated Red Blood Cells % 0.8 % Poikilocytosis PRESENT Schistocytes OCCASIONAL Prothrombin Time 11.2 SECONDS Prothromb Time International Ratio 1.0 Activated Partial Thromboplast Time 39.8 SECONDS Partial Thromboplastin Ratio 1.5 Sodium Level 133 mmol/L Potassium Level 3.7 mmol/L Chloride Level 99 mmol/L Carbon Dioxide Level 14 mmol/L Anion Gap 20.0 mmol/L Blood Urea Nitrogen 88 mg/dl Creatinine 9.20 mg/dl Est Creatinine Clear Calc Drug Dose 7.5 ml/min Estimated GFR () 5.6 Estimated GFR (Non- 4.9 BUN/Creatinine Ratio 9.5 Random Glucose 379 mg/dl Calcium Level 11.1 mg/dl Total Bilirubin 0.3 mg/dl Aspartate Amino Transf (AST/SGOT) 185 U/L Alanine Aminotransferase (ALT/SGPT) 131 U/L Alkaline Phosphatase 103 U/L Troponin I 0.588 ng/ml Total Protein 6.3 gm/dl Albumin 2.1 gm/dl Globulin 4.2 gm/dl Albumin/Globulin Ratio 0.5 Beta-Hydroxybutyric Acid 12.14 mg/dL Test 04/07/17 22:40 04/07/17 22:50 04/07/17 23:10 04/08/17 01:44 White Blood Count 22.99 K/uL Red Blood Count 2.62 M/uL Hemoglobin 7.8 g/dL Hematocrit 24.4 % Mean Corpuscular Volume 93.1 fL Mean Corpuscular Hemoglobin 29.8 pg Mean Corpuscular Hemoglobin Concent 32.0 g/dl Platelet Count 280 K/uL Mean Platelet Volume 11.5 fL Neutrophils (%) (Auto) 85.6 % Lymphocytes (%) (Auto) 5.2 % Monocytes (%) (Auto) 3.6 % Eosinophils (%) (Auto) 0.6 % Basophils (%) (Auto) 0.3 % Neutrophils # (Auto) 19.68 K/uL Lymphocytes # (Auto) 1.20 K/uL Monocytes # (Auto) 0.83 K/uL Eosinophils # (Auto) 0.13 K/uL Basophils # (Auto) 0.06 K/uL RDW Standard Deviation 56.2 fL RDW Coefficient of Variation 16.5 % Immature Granulocyte % (Auto) 4.7 % Immature Granulocyte # (Auto) 1.09 K/uL Nucleated RBC Absolute Count (auto) 0.04 K/uL Nucleated Red Blood Cells % 0.2 % Polychromasia 1+ Echinocytes 1+ Sodium Level 137 mmol/L Potassium Level 4.0 mmol/L Chloride Level 100 mmol/L Carbon Dioxide Level 18 mmol/L Anion Gap 19.0 mmol/L Blood Urea Nitrogen 84 mg/dl Creatinine 8.70 mg/dl Est Creatinine Clear Calc Drug Dose 8.0 ml/min Estimated GFR () 6.0 Estimated GFR (Non- 5.2 BUN/Creatinine Ratio 9.7 Random Glucose 345 mg/dl Lactic Acid Level 9.0 mmol/L Calcium Level 9.5 mg/dl Phosphorus Level 9.0 mg/dl Magnesium Level 3.3 mg/dl Total Bilirubin 0.5 mg/dl Direct Bilirubin 0.2 mg/dl Aspartate Amino Transf (AST/SGOT) 250 U/L Alanine Aminotransferase (ALT/SGPT) 162 U/L Alkaline Phosphatase 115 U/L Total Protein 6.1 gm/dl Albumin 2.0 gm/dl Beta-Hydroxybutyric Acid 7.67 mg/dL Procalcitonin 0.65 ng/ml Random Cortisol 49.33 mcg/dl Creatine Kinase MB Ratio Creatine Kinase MB 7.1 ng/ml Troponin I 0.805 ng/ml Bedside Glucose (other) 223 mg/dl Test 04/08/17 02:43 Bedside Glucose (other) 193 mg/dl Diagnostic Results CHEST ONE VIEW PORTABLE CLINICAL HISTORY: Respiratory distress. Dyspnea. COMPARISON STUDY: Chest radiograph December 05, 2015. FINDINGS: Exam is compromised by motion artifact. Right lower lung airspace opacity is noted. There may be minimal left lower lung opacity is well. Mild cardiomegaly is noted. There is no evidence for pulmonary edema. IMPRESSION: 1. Probable right lower lung airspace opacity which favors pneumonia. Study mildly compromised by motion artifact. 2. Possible minimal left basilar opacity. Electronically signed by: Henri Dorantes M.D. 04/06/2017 10:54 PM Dictated Date/Time: 04/06/2017 10:52 PM CHEST ONE VIEW PORTABLE CLINICAL HISTORY: s/p cardiac arrest tube position COMPARISON STUDY: 04/06/2017 10:20 PM FINDINGS: Endotracheal tube 1 cm above the shilpi. Findings of developing pulmonary edema. Diaphragms smooth. IMPRESSION: Endotracheal tube 1 cm above the shilpi. Developing pulmonary edema. The above report was generated using voice recognition software. It may contain grammatical, syntax or spelling errors. Electronically signed by: Santos Delgado M.D. 04/07/2017 10:12 PM Dictated Date/Time: 04/07/2017 10:11 PM Assessment & Plan (1) Cardiac arrest (2) Lactic acidosis (3) Respiratory failure (4) Diarrhea (5) Right lower lobe pneumonia (6) Right rib fracture (7) ESRD on hemodialysis (8) Diabetes mellitus Reason Critically Ill: Patient is an 81-year-old male who is transferred to the ICU s/p Code Blue V. Fib Cardiac Arrest. PLAN: CV: * Initiate Code Arctic for witnessed Cardiac Arrest without return of normal mental status. * Goal Temp: 35-36*C x 24hrs * Buspar/Demerol for Shivering * Prolonged QTc: Monitor closely avoid QTc Prolonging drugs * Dr. Cabrera following Pt * Monitor on telemetry * Trend Troponin * Continue Amiodarone infusion * Goal MAP > 65: Phenylephrine ordered Neuro: * Sedation with Fentanyl and Versed * Continuous EEG during code Arctic * Neuro Consult placed with Dr. Vazquez * Head CT without Contrast pending * Monitor for changes Resp: * AC 26/500/12/100% * Pt not maintaining adequate saturations * Continue Recruitment maneuvers per Dr. Weller * Bronchoscopy be Dr. Weller Pending * Role out PE: CT Pending * Trend ABG * ABG @ 2237: 7.039/61.1/56/16.5 * RLL PNA: See ID * Continue Respiratory Regimen * Goals SpO2 88-92% Fluids/Renal: * Pt missed multiple dialysis treatments * HD now * Cr 9.2 * Lactic Acid 9 * Repeat Labs s/p conclusion of HD * Fluids: * None at this time * Bedside Ultrasound per Dr. Weller demonstrates adequate fluid resuscitation. * Trend Electrolytes: Monitor Closely * Dr. Peraza ([employer] following) ID: * Concern for RLL PNA on admission * Pt was on Levaquin, held on day of arrest 08/27 to prolonged QTc * Procalcitonin Negative * Zosyn Day 1 04/08 * Vancomycin: Consult in place * Hypothermic protocol now: Monitor Temperature closely * Trend WBCs GI/Nutrition: * NPO currently * OG Tube in place * Protonix for Stress Ulcer Prophylaxis Endocrine: * Insulin Infusion started for Glucose > 250 * Accu-checks per protocol * A1C in AM * Thyroid Function test in AM Heme: * H&H: Stable at 7.8-8.0; continue to trend H&H * Consider replacing in HD * DVT Prophylaxis: Heparin 5000 Units BID CCT: 04/07 ([id number]) 180 minutes ; 04/08 ([id number]) 30 minutes Minutes; This time is exclusive of all separately billable procedures. Thank you for involving us in the care of this patient. Please refer to Dr. Manuel Weller's addendum for further recommendations. I have personally evaluated and examined this patient. I agree with assessment and plan of Brianna Robert PA-C. Total billing time is 210 minutes for April 07. Time started as noted above on April 07 continued continuously until 00 30 on April 08. Problem Qualifiers (1) Respiratory failure: Chronicity: acute Respiratory failure complication: hypoxia Qualified Codes : J96.01 - Acute respiratory failure with hypoxia
[2017-04-08 04:17] LABS: HEMATOCRIT 23.9 % (42-52); MEAN CELL VOLUME 91.2 fL (80-100); MEAN CORPUSCULAR HEMOGLOBIN 29.8 pg (25-34); MEAN CORPUSCULAR HGB CONC 32.6 g/dl (32-36); MEAN PLATELET VOLUME 11.3 fL (7.4-10.4); PLATELET COUNT 221 K/uL (130-400); RED BLOOD COUNT 2.62 M/uL (4.7-6.1); WHITE BLOOD COUNT 22.53 K/uL (4.8-10.8)
[2017-04-08 04:19] LABS: ARTERIAL BLOOD GAS BASE EXCESS -4.6 mEq/L (-9-1.8); ARTERIAL BLOOD GAS HCO3 23 mmol/L (19-24); ARTERIAL BLOOD GAS PO2 69 mm/Hg (80-95); ARTERIAL BLOOD GAS pH 7.21 (7.35-7.45)
[2017-04-08 04:26] LABS: ISTAT ARTERIAL BLOOD GAS HCO3 24 meq/L (19-24); ISTAT ARTERIAL BLOOD GAS PCO2 59 mmHg (35-46); ISTAT ARTERIAL BLOOD GAS PO2 65 mmHg (80-95); ISTAT ARTERIAL BLOOD GAS pH 7.22 (7.35-7.45); ISTAT CARBON DIOXIDE 26 mEq/l (24-31); ISTAT HEMATOCRIT 23 % (42-52); ISTAT HEMOGLOBIN 7.8 g/dl (14.0-18.0); ISTAT SODIUM 135 mEq/L (135-144)
[2017-04-08 04:28] LABS: INR 1.1 (0.9-1.1); PARTIAL THROMBOPLASTIN RATIO 1.5; PROTHROMBIN TIME (PATIENT) 12.2 SECONDS (9.0-12.0)
[2017-04-08] MEDS ORDERED: VANCOMYCIN INJ 2,000 MG in SODIUM CHLORIDE 0.9% 500ML 500 ML IV ONE (04:30)
[2017-04-08 04:38] LABS: ALLEN TEST POS (POS); O2 ADMINISTRATION 100%
[2017-04-08 04:46] LABS: BUN/CREATININE RATIO 9.7 (10-20); CALCIUM 7.7 mg/dl (8.5-10.1); CKMB/CK RATIO 8.2 (0-3.0); CREATININE 5.5 mg/dl (0.60-1.40); MAGNESIUM 2.5 mg/dl (1.8-2.4); PHOSPHORUS 5.2 mg/dl (2.5-4.9); POTASSIUM 3.8 mmol/L (3.5-5.1)
[2017-04-08 05:05] LABS: COMPLETE YES; NEUTROPHILS % 93.9 %
--- NOTE | 2017-04-08 06:34 | DIAGNOSTIC IMAGING REPORT ---
CT OF THE HEAD WITHOUT CONTRAST CLINICAL HISTORY: Cardiac arrest. COMPARISON STUDY: No previous studies for comparison. TECHNIQUE: Helical axial images of the head were obtained without IV contrast. Automated exposure control was utilized for the study. A dose lowering technique was utilized adhering to the principles of ALARA. FINDINGS: No acute intracranial hemorrhage, midline shift or mass effect is present. Ventricular system is normal for age. Basilar cisterns are patent. There are no extra-axial collections. Moderate white matter hypodensity suggests small vessel disease. 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 There are no CT findings to suggest acute dural sinus thrombosis or acute territorial infarct. There are no significant calvarial abnormalities. There are secretions within the nasopharynx. Air-fluid levels are noted within the ethmoid sinuses. IMPRESSION: 1. No acute intracranial findings. 2. 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 3. Secretions within the nasopharynx and fluid within the ethmoid sinuses which may be related to intubation. Electronically signed by: Henri Dorantes M.D. 04/08/2017 6:33 AM Dictated Date/Time: 04/08/2017 6:30 AM
[2017-04-08] MEDS ORDERED: LACTOBACILLUS ACIDOPHILUS (FLORANEX) TAB PO SCH (07:15)
[2017-04-08] MEDS ORDERED: PERFLUTREN LIPID MICROSPHERE (DEFINITY) IV ONE (07:28)
[2017-04-08] MEDS: ALBUT/IPRATROP 3MG/0.5MG NEB 3 ML VIAL INH SCH (07:34)
[2017-04-08] MEDS: NEPHROCAPS PO SCH (07:56)
[2017-04-08] MEDS: INSULIN ASPART 100 UNITS/ML 3 ML PEN SC SCH ×4 (07:56→20:49)
--- NOTE | 2017-04-08 07:56 | DIAGNOSTIC IMAGING REPORT ---
CHEST CTA for PULMONARY ARTERIES CT DOSE: 1341.64 mGy.cm HISTORY: Cardiac arrest. TECHNIQUE: Multiaxial CT images of the chest were performed following the intravenous administration of contrast to evaluate the pulmonary arteries. Maximal intensity projection images were also obtained. A dose lowering technique was utilized adhering to the principles of ALARA. COMPARISON STUDY: Chest 04/07/2017. FINDINGS: The endotracheal tube terminates in the right mainstem bronchus. Approximately 50% stenosis at the takeoff of the left common carotid artery. Normal caliber thoracic aorta with no evidence for dissection. Trace bilateral pleural effusions. No filling defects within the pulmonary arteries to suggest pulmonary embolus. Dense consolidation within the majority of the right lower lobe and posterior aspect of the right upper lobe. There is also a small amount of consolidation within the right middle lobe posteriorly. Dense consolidation with collapse of the left lower lobe. Interlobular septal thickening within the lungs. There are a few scattered indeterminate nodules. Dominant nodule seen within the left lung apex and measures 5 mm. Multiple bilateral anterior rib fractures. Nondisplaced left humeral neck fracture. Retrograde flow of contrast into the hepatic veins and IVC. No mediastinal or hilar lymphadenopathy. Nondisplaced sternal fracture. Small left adrenal gland nodule. Small left thyroid nodule. IMPRESSION: 1. No evidence for pulmonary embolus. 2. The endotracheal tube terminates in the right mainstem bronchus. This has since been pulled back. 3. Bilateral dense consolidation within the lungs as described above. This favors a multifocal pneumonia. 4. Trace bilateral pleural effusions. 5. Multiple bilateral acute anterior rib fractures and a mid sternal fracture. No pneumothorax. 6. Nondisplaced left humeral neck fracture. 7. Interlobular septal thickening within the lungs likely represents pulmonary edema. 8. A few subcentimeter indeterminate nodules. Six-month chest CT follow-up is recommended to ensure stability. Electronically signed by: Thom Michelle M.D. 04/08/2017 7:55 AM Dictated Date/Time: 04/08/2017 7:42 AM
[2017-04-08] MEDS: SODIUM BICARBONATE 650 MG TAB PO SCH ×2 (07:57→17:09)
--- NOTE | 2017-04-08 07:58 | DIAGNOSTIC IMAGING REPORT ---
CHEST ONE VIEW PORTABLE CLINICAL HISTORY: Cardiac arrest. Intubation. COMPARISON STUDY: Chest radiograph and chest CT April 07, 2017. FINDINGS: The tip of the endotracheal tube is 4.2 cm above the shilpi. Tip of nasogastric tube is below lower aspect of this image but at least within the proximal stomach. There is no pneumothorax. Small bilateral pleural effusions persist. Dense bibasilar consolidation persist. There is mild pulmonary edema. Patient is rotated. Right lower lobe volume loss is noted. Cardiomegaly is unchanged. There are multiple acute bilateral rib fractures. IMPRESSION: 1. Satisfactory positioning of the endotracheal tube. 2. Dense bilateral airspace opacities suggestive of pneumonia. 3. Multiple acute bilateral rib fractures with no pneumothorax. 4. Interstitial thickening consistent with superimposed pulmonary edema. Electronically signed by: Henri Dorantes M.D. 04/08/2017 7:57 AM Dictated Date/Time: 04/08/2017 7:54 AM
[2017-04-08 08:18] LABS: ISTAT ARTERIAL BLOOD GAS HCO3 22 meq/L (19-24); ISTAT ARTERIAL BLOOD GAS PCO2 47 mmHg (35-46); ISTAT ARTERIAL BLOOD GAS PO2 55 mmHg (80-95); ISTAT ARTERIAL BLOOD GAS pH 7.27 (7.35-7.45); ISTAT CARBON DIOXIDE 23 mEq/l (24-31); ISTAT DELIVERY SYSTEM Ventilator; ISTAT FIO2 100 %; ISTAT PEEP 12; ISTAT RATE 26; ISTAT SITE Art Line; VE 12.5; Vt 500
[2017-04-08 08:49] LABS: BASO % 0.1 %; BASO ABS # 0.02 K/uL (0-0.2); HEMATOCRIT 23.1 % (42-52); IG% 2.4 %; LYMPH % 3.3 %; LYMPH ABS # 0.63 K/uL (1.2-3.4); MEAN CELL VOLUME 91.3 fL (80-100); MEAN CORPUSCULAR HEMOGLOBIN 30.4 pg (25-34); MEAN CORPUSCULAR HGB CONC 33.3 g/dl (32-36); MEAN PLATELET VOLUME 10.9 fL (7.4-10.4); MONO % 3.9 %; NEUT % 90.3 %; PLATELET COUNT 165 K/uL (130-400); RED BLOOD COUNT 2.53 M/uL (4.7-6.1); WHITE BLOOD COUNT 19.34 K/uL (4.8-10.8)
[2017-04-08 08:57] LABS: INR 1.3 (0.9-1.1); PARTIAL THROMBOPLASTIN RATIO 1.6; PROTHROMBIN TIME (PATIENT) 13.7 SECONDS (9.0-12.0)
[2017-04-08] MEDS ORDERED: PANTOprazole SOD 40 MG TAB PO SCH (09:00)
[2017-04-08] MEDS ORDERED: HEPARIN SOD 5000 UNIT/0.5 ML CARP SQ SCH (09:00)
[2017-04-08 09:21] LABS: COMPLETE YES; ECHINOCYTES 1+
[2017-04-08 09:26] LABS: BUN/CREATININE RATIO 9.2 (10-20); CALCIUM 8.3 mg/dl (8.5-10.1); CREATININE 5.9 mg/dl (0.60-1.40); MAGNESIUM 2.6 mg/dl (1.8-2.4); PHOSPHORUS 5.8 mg/dl (2.5-4.9); POTASSIUM 3.9 mmol/L (3.5-5.1)
[2017-04-08] MEDS: PANTOprazole INJ 40 MG in SYRINGE 0 ML IV SCH (09:59)
--- NOTE | 2017-04-08 10:21 | Nephrology Progress Note ---
Nephrology Progress Note Date of Service Apr 08, 2017. Chief Complaint ESRD on HD Subjective Mr. Galeano was seen & examined in the ICU this morning. His plan of care was discussed w/ Dr. Weller. Mr. Galeano required emergency HD this morning to help correct metabolic acidosis. His AVF remained function following resuscitation from V-fib arrest. He completed 3 hours HD with no UF. This morning Mr. Galeano remains sedated and ventilator dependent. He is on Neosynephrine gtt for blood pressure support. Core temperature cooling and continuous EEG monitoring are being provided. Mr. Galeano's eldest son, Ed ( [place]) was present at bedside. Review of Systems Sedated and mechanically ventilated. Unable to provide ROS Vital Signs Last 8 Hrs Date Time Temp Pulse Resp B/P (MAP) Pulse Ox O2 Delivery O2 Flow Rate FiO2 04/08/17 09:45 35.1 04/08/17 09:30 35.1 04/08/17 09:15 35.1 04/08/17 09:00 35.1 65 26 109/60 (76) 95 Mechanical Ventilator 100 106/42 (63) 04/08/17 08:45 35.1 04/08/17 08:30 35.1 04/08/17 08:15 35.1 04/08/17 08:00 35.1 65 26 108/59 (75) 92 Mechanical Ventilator 100 107/42 (63) 04/08/17 08:00 35.1 04/08/17 08:00 100 04/08/17 08:00 92 Mechanical Ventilator 100 04/08/17 07:34 100 04/08/17 07:34 66 26 92 Mechanical Ventilator 100 04/08/17 07:00 35.2 68 26 97/54 (68) 92 Mechanical Ventilator 100 109/56 (73) 04/08/17 06:30 35.1 68 26 (62) 93 94/46 04/08/17 06:15 35.1 70 26 (71) 93 101/55 04/08/17 06:00 35.1 71 26 91/56 (68) 90 Mechanical Ventilator 100 95/53 (67) 04/08/17 06:00 35.1 70 26 91/57 (63) 91 96/54 04/08/17 05:45 35.1 71 26 (66) 91 92/52 04/08/17 05:30 35.1 72 26 (69) 89 94/55 04/08/17 05:15 35.1 74 26 (72) 90 99/56 04/08/17 05:01 35.1 75 26 91/56 (69) 92 97/54 04/08/17 05:00 35.1 76 26 96/70 (79) 91 Mechanical Ventilator 100 95/50 (65) 04/08/17 05:00 35.1 76 26 (67) 92 96/51 04/08/17 04:45 35.4 79 26 (68) 92 99/51 04/08/17 04:30 35.4 79 26 (67) 92 95/51 04/08/17 04:20 35.4 80 99/59 (72) 04/08/17 04:15 35.4 79 26 (67) 92 95/52 04/08/17 04:01 35.4 80 26 96/70 (65) 91 93/51 04/08/17 04:00 35.4 80 26 98/61 (73) 92 Mechanical Ventilator 100 96/53 (67) 04/08/17 04:00 Mechanical Ventilator 04/08/17 04:00 100 04/08/17 03:50 35.3 81 26 99/59 (66) 92 92/52 04/08/17 03:45 82 94/60 04/08/17 03:30 83 94/60 04/08/17 03:26 35.3 83 26 94/60 (61) 89 86/48 04/08/17 03:15 83 88/61 04/08/17 03:15 35.3 83 26 90/59 (77) 89 88/51 04/08/17 03:01 35.3 86 26 95/63 (68) 90 96/54 04/08/17 03:00 86 94/65 04/08/17 03:00 35.3 86 26 95/63 (74) 90 Mechanical Ventilator 100 94/51 (65) 04/08/17 02:46 35.2 86 26 96/56 (65) 90 95/51 04/08/17 02:45 88 101/58 04/08/17 02:31 35.2 91 26 100/62 (74) 87 105/57 04/08/17 02:30 90 101/64 04/08/17 02:17 100 04/08/17 02:16 35.2 90 26 102/63 (68) 88 101/53 04/08/17 02:15 91 100/62 04/08/17 02:11 35.2 92 26 100/62 (74) 88 106/58 04/08/17 02:06 35.2 94 26 116/64 (76) 88 107/59 I & O 24-Hour Column 04/09/17 07:59 Output Total 0 ml Balance 0 ml Last Recorded Weight Weight (Kilograms): 103.100 Physical Exam General Appearance: + pertinent finding (chronically ill appearing) Head: normocephalic, atraumatic ENT: + pertinent finding (orotracheally intubated) Respiratory/Chest: + pertinent finding (coarse breath sounds bilaterally) Cardiovascular: regular rate, rhythm Abdomen/GI: + pertinent finding (distended. Hypoactive bowel sounds) Extremities/Musculoskelatal: no pedal edema, + pertinent finding (L arm AVF with soft bruit) Neurologic/Psych: + pertinent finding (sedated. Continuous EEG monitor in place) Family History No pertinent family history Negative for CKD / ESRD Social History Drug Use: none Marital Status: Housing Status: lives with family Occupation: retired . has Alzheimers and requires home health nursing. Patient is retired. Current smoker Laboratory Results Past 24 Hours 04/07/17 11:41 04/07/17 18:43 04/07/17 21:40 Red Blood Count 2.66, Mean Corpuscular Volume 94.0, Mean Corpuscular Hemoglobin 30.1, Mean Corpuscular Hemoglobin Concent 32.0, Mean Platelet Volume 12.5, Neutrophils (%) (Auto) 61.7, Lymphocytes (%) (Auto) 24.2, Monocytes (%) (Auto) 5.9, Eosinophils (%) (Auto) 1.0, Basophils (%) (Auto) 0.5, Neutrophils # (Auto) 9.46, Lymphocytes # (Auto) 3.71, Monocytes # (Auto) 0.90, Eosinophils # (Auto) 0.16, Basophils # (Auto) 0.08 04/07/17 22:40 Red Blood Count 2.62, Mean Corpuscular Volume 93.1, Mean Corpuscular Hemoglobin 29.8, Mean Corpuscular Hemoglobin Concent 32.0, Mean Platelet Volume 11.5, Neutrophils (%) (Auto) 85.6, Lymphocytes (%) (Auto) 5.2, Monocytes (%) (Auto) 3.6, Eosinophils (%) (Auto) 0.6, Basophils (%) (Auto) 0.3, Neutrophils # (Auto) 19.68, Lymphocytes # (Auto) 1.20, Monocytes # (Auto) 0.83, Eosinophils # (Auto) 0.13, Basophils # (Auto) 0.06 04/08/17 04:01 Red Blood Count 2.62, Mean Corpuscular Volume 91.2, Mean Corpuscular Hemoglobin 29.8, Mean Corpuscular Hemoglobin Concent 32.6, Mean Platelet Volume 11.3 04/08/17 08:38 Red Blood Count 2.53, Mean Corpuscular Volume 91.3, Mean Corpuscular Hemoglobin 30.4, Mean Corpuscular Hemoglobin Concent 33.3, Mean Platelet Volume 10.9, Neutrophils (%) (Auto) 90.3, Lymphocytes (%) (Auto) 3.3, Monocytes (%) (Auto) 3.9, Eosinophils (%) (Auto) 0.0, Basophils (%) (Auto) 0.1, Neutrophils # (Auto) 17.46, Lymphocytes # (Auto) 0.63, Monocytes # (Auto) 0.76, Eosinophils # (Auto) 0.00, Basophils # (Auto) 0.02 04/07/17 13:17 04/07/17 21:42 04/07/17 22:40 04/08/17 04:01 04/08/17 08:38 Test 04/07/17 13:17 04/07/17 16:29 04/07/17 20:11 04/07/17 21:30 Anion Gap 15.0 mmol/L (3-11) Est Creatinine Clear Calc Drug Dose 7.8 ml/min Estimated GFR () 5.9 Estimated GFR (Non- 5.1 BUN/Creatinine Ratio 9.9 (10-20) Calcium Level 10.0 mg/dl (8.5-10.1) Troponin I 0.917 ng/ml (0-0.045) Chemistry Specimen Hemolysis Bedside Glucose 172 mg/dl (70-99) 213 mg/dl (70-99) Bedside Hemoglobin 8.8 g/dl (14.0-18.0) Bedside Hematocrit 26 % (42-52) Bedside Blood Gas pH (LAB) 6.97 (7.35-7.45) Bedside Blood Gas pCO2 (LAB) 47 mmHg (35-46) Bedside Blood Gas pO2 (LAB) 82 mmHg (80-95) Bedside Blood Gas HCO3 (LAB) 11 meq/L (19-24) Bedside Blood Gas Total CO2 12 mEq/l (24-31) Bedside Blood Gas Base Excess (LAB) -21.0 meq/L (-9-1.8) Bedside Blood Gas O2 Saturation 87.0 % (90-95) Bedside Sodium 131 mEq/L (135-144) Bedside Potassium 4.0 mEq/L (3.3-5.0) Test 04/07/17 21:40 04/07/17 21:42 04/07/17 22:37 04/07/17 22:40 White Blood Count 15.33 K/uL (4.8-10.8) 22.99 K/uL (4.8-10.8) Red Blood Count 2.66 M/uL (4.7-6.1) 2.62 M/uL (4.7-6.1) Hemoglobin 8.0 g/dL (14.0-18.0) 7.8 g/dL (14.0-18.0) Hematocrit 25.0 % (42-52) 24.4 % (42-52) Mean Corpuscular Volume 94.0 fL (80-100) 93.1 fL (80-100) Mean Corpuscular Hemoglobin 30.1 pg (25-34) 29.8 pg (25-34) Mean Corpuscular Hemoglobin Concent 32.0 g/dl (32-36) 32.0 g/dl (32-36) Platelet Count 194 K/uL (130-400) 280 K/uL (130-400) Mean Platelet Volume 12.5 fL (7.4-10.4) 11.5 fL (7.4-10.4) Neutrophils (%) (Auto) 61.7 % 85.6 % Lymphocytes (%) (Auto) 24.2 % 5.2 % Monocytes (%) (Auto) 5.9 % 3.6 % Eosinophils (%) (Auto) 1.0 % 0.6 % Basophils (%) (Auto) 0.5 % 0.3 % Neutrophils # (Auto) 9.46 K/uL (1.4-6.5) 19.68 K/uL (1.4-6.5) Lymphocytes # (Auto) 3.71 K/uL (1.2-3.4) 1.20 K/uL (1.2-3.4) Monocytes # (Auto) 0.90 K/uL (0.11-0.59) 0.83 K/uL (0.11-0.59) Eosinophils # (Auto) 0.16 K/uL (0-0.5) 0.13 K/uL (0-0.5) Basophils # (Auto) 0.08 K/uL (0-0.2) 0.06 K/uL (0-0.2) RDW Standard Deviation 57.3 fL (36.4-46.3) 56.2 fL (36.4-46.3) RDW Coefficient of Variation 16.7 % (11.5-14.5) 16.5 % (11.5-14.5) Immature Granulocyte % (Auto) 6.7 % 4.7 % Immature Granulocyte # (Auto) 1.02 K/uL (0.00-0.02) 1.09 K/uL (0.00-0.02) Nucleated RBC Absolute Count (auto) 0.13 K/uL (0-0) 0.04 K/uL (0-0) Nucleated Red Blood Cells % 0.8 % 0.2 % Poikilocytosis PRESENT Schistocytes OCCASIONAL Prothrombin Time 11.2 SECONDS (9.0-12.0) Prothromb Time International Ratio 1.0 (0.9-1.1) Activated Partial Thromboplast Time 39.8 SECONDS (21.0-31.0) Partial Thromboplastin Ratio 1.5 Anion Gap 20.0 mmol/L (3-11) 19.0 mmol/L (3-11) Est Creatinine Clear Calc Drug Dose 7.5 ml/min 8.0 ml/min Estimated GFR () 5.6 6.0 Estimated GFR (Non- 4.9 5.2 BUN/Creatinine Ratio 9.5 (10-20) 9.7 (10-20) Calcium Level 11.1 mg/dl (8.5-10.1) 9.5 mg/dl (8.5-10.1) Total Bilirubin 0.3 mg/dl (0.2-1) 0.5 mg/dl (0.2-1) Aspartate Amino Transf (AST/SGOT) 185 U/L (15-37) 250 U/L (15-37) Alanine Aminotransferase (ALT/SGPT) 131 U/L (12-78) 162 U/L (12-78) Alkaline Phosphatase 103 U/L (45-117) 115 U/L (45-117) Troponin I 0.588 ng/ml (0-0.045) Total Protein 6.3 gm/dl (6.4-8.2) 6.1 gm/dl (6.4-8.2) Albumin 2.1 gm/dl (3.4-5.0) 2.0 gm/dl (3.4-5.0) Globulin 4.2 gm/dl (2.5-4.0) Albumin/Globulin Ratio 0.5 (0.9-2) Beta-Hydroxybutyric Acid 12.14 mg/dL (0.2-2.81) 7.67 mg/dL (0.2-2.81) Bedside Hemoglobin 7.8 g/dl (14.0-18.0) Bedside Hematocrit 23 % (42-52) Bedside Blood Gas pH (LAB) 7.04 (7.35-7.45) Bedside Blood Gas pCO2 (LAB) 61 mmHg (35-46) Bedside Blood Gas pO2 (LAB) 56 mmHg (80-95) Bedside Blood Gas HCO3 (LAB) 17 meq/L (19-24) Bedside Blood Gas Total CO2 18 mEq/l (24-31) Bedside Blood Gas Base Excess (LAB) -14.0 meq/L (-9-1.8) Bedside Blood Gas O2 Saturation 73.0 % (90-95) Bedside Sodium 137 mEq/L (135-144) Bedside Potassium 3.6 mEq/L (3.3-5.0) Polychromasia 1+ Echinocytes 1+ Lactic Acid Level 9.0 mmol/L (0.4-2.0) Phosphorus Level 9.0 mg/dl (2.5-4.9) Magnesium Level 3.3 mg/dl (1.8-2.4) Direct Bilirubin 0.2 mg/dl (0-0.2) Procalcitonin 0.65 ng/ml (0-0.5) Random Cortisol 49.33 mcg/dl Test 04/07/17 22:50 04/07/17 23:10 04/08/17 01:44 04/08/17 02:43 Creatine Kinase MB Ratio (0-3.0) Creatine Kinase MB 7.1 ng/ml (0.5-3.6) Troponin I 0.805 ng/ml (0-0.045) Bedside Glucose (other) 223 mg/dl (70-99) 193 mg/dl (70-99) Test 04/08/17 03:33 04/08/17 04:00 04/08/17 04:01 04/08/17 04:14 Bedside Glucose (other) 176 mg/dl (70-99) Arterial Blood pH 7.21 (7.35-7.45) Arterial Blood Partial Pressure CO2 60 mmHg (35-46) Arterial Blood Partial Pressure O2 69 mm/Hg (80-95) Arterial Blood HCO3 23 mmol/L (19-24) Arterial Blood Oxygen Saturation 88.0 % (90-95) Arterial Blood Base Excess -4.6 mEq/L (-9-1.8) Arterial Blood Gas Delivery 100% Raciel Test POS (POS) White Blood Count 22.53 K/uL (4.8-10.8) Red Blood Count 2.62 M/uL (4.7-6.1) Hemoglobin 7.8 g/dL (14.0-18.0) Hematocrit 23.9 % (42-52) Mean Corpuscular Volume 91.2 fL (80-100) Mean Corpuscular Hemoglobin 29.8 pg (25-34) Mean Corpuscular Hemoglobin Concent 32.6 g/dl (32-36) Platelet Count 221 K/uL (130-400) Mean Platelet Volume 11.3 fL (7.4-10.4) RDW Standard Deviation 55.1 fL (36.4-46.3) RDW Coefficient of Variation 16.5 % (11.5-14.5) Nucleated RBC Absolute Count (auto) 0.03 K/uL (0-0) Neutrophils % (Manual) 93.9 % Lymphocytes % (Manual) 0.0 % Monocytes % (Manual) 6.1 % Nucleated Red Blood Cells % 0.1 % Neutrophils # (Manual) 21.16 K/uL (1.4-6.5) Total Absolute Neutrophils 21.16 K/uL (1.4-6.5) Total Absolute Lymphocytes 0.00 K/uL (1.2-3.4) Monocytes # (Manual) 1.37 K/uL (0.11-0.59) Basophilic Stippling 1+ Prothrombin Time 12.2 SECONDS (9.0-12.0) Prothromb Time International Ratio 1.1 (0.9-1.1) Activated Partial Thromboplast Time 39.0 SECONDS (21.0-31.0) Partial Thromboplastin Ratio 1.5 Anion Gap 11.0 mmol/L (3-11) Est Creatinine Clear Calc Drug Dose 12.9 ml/min Estimated GFR () 10.5 Estimated GFR (Non- 9.1 BUN/Creatinine Ratio 9.7 (10-20) Calcium Level 7.7 mg/dl (8.5-10.1) Phosphorus Level 5.2 mg/dl (2.5-4.9) Magnesium Level 2.5 mg/dl (1.8-2.4) Total Creatine Kinase 589 U/L (39-308) Creatine Kinase MB 48.1 ng/ml (0.5-3.6) Creatine Kinase MB Ratio 8.2 (0-3.0) Troponin I 14.900 ng/ml (0-0.045) Random Vancomycin Level < 0.8 mcg/ml Bedside Hemoglobin 7.8 g/dl (14.0-18.0) Bedside Hematocrit 23 % (42-52) Bedside Blood Gas pH (LAB) 7.22 (7.35-7.45) Bedside Blood Gas pCO2 (LAB) 59 mmHg (35-46) Bedside Blood Gas pO2 (LAB) 65 mmHg (80-95) Bedside Blood Gas HCO3 (LAB) 24 meq/L (19-24) Bedside Blood Gas Total CO2 26 mEq/l (24-31) Bedside Blood Gas Base Excess (LAB) -4.0 meq/L (-9-1.8) Bedside Blood Gas O2 Saturation 87.0 % (90-95) Bedside Sodium 135 mEq/L (135-144) Bedside Potassium 3.7 mEq/L (3.3-5.0) Test 04/08/17 05:34 04/08/17 06:30 04/08/17 07:39 04/08/17 08:05 Bedside Glucose (other) 254 mg/dl (70-99) 250 mg/dl (70-99) 256 mg/dl (70-99) Blood Gas Sample Site Art Line Bedside Blood Gas pH (LAB) 7.27 (7.35-7.45) Bedside Blood Gas pCO2 (LAB) 47 mmHg (35-46) Bedside Blood Gas pO2 (LAB) 55 mmHg (80-95) Bedside Blood Gas HCO3 (LAB) 22 meq/L (19-24) Bedside Blood Gas Total CO2 23 mEq/l (24-31) Bedside Blood Gas Base Excess (LAB) -5.0 meq/L (-9-1.8) Bedside Blood Gas O2 Saturation 87.0 % (90-95) Raciel Test NA Oxygen Delivery Device Ventilator Bedside Oxygen Rate (breaths/min) 26 Blood Gas Minute Ventilation 12.5 Bedside FiO2 100 % Blood Gas Tidal Volume 500 Blood Gas PEEP 12 Test 04/08/17 08:38 04/08/17 08:49 White Blood Count 19.34 K/uL (4.8-10.8) Red Blood Count 2.53 M/uL (4.7-6.1) Hemoglobin 7.7 g/dL (14.0-18.0) Hematocrit 23.1 % (42-52) Mean Corpuscular Volume 91.3 fL (80-100) Mean Corpuscular Hemoglobin 30.4 pg (25-34) Mean Corpuscular Hemoglobin Concent 33.3 g/dl (32-36) Platelet Count 165 K/uL (130-400) Mean Platelet Volume 10.9 fL (7.4-10.4) Neutrophils (%) (Auto) 90.3 % Lymphocytes (%) (Auto) 3.3 % Monocytes (%) (Auto) 3.9 % Eosinophils (%) (Auto) 0.0 % Basophils (%) (Auto) 0.1 % Neutrophils # (Auto) 17.46 K/uL (1.4-6.5) Lymphocytes # (Auto) 0.63 K/uL (1.2-3.4) Monocytes # (Auto) 0.76 K/uL (0.11-0.59) Eosinophils # (Auto) 0.00 K/uL (0-0.5) Basophils # (Auto) 0.02 K/uL (0-0.2) RDW Standard Deviation 55.3 fL (36.4-46.3) RDW Coefficient of Variation 16.7 % (11.5-14.5) Immature Granulocyte % (Auto) 2.4 % Immature Granulocyte # (Auto) 0.47 K/uL (0.00-0.02) Basophilic Stippling 1+ Echinocytes 1+ Prothrombin Time 13.7 SECONDS (9.0-12.0) Prothromb Time International Ratio 1.3 (0.9-1.1) Activated Partial Thromboplast Time 41.5 SECONDS (21.0-31.0) Partial Thromboplastin Ratio 1.6 Anion Gap 14.0 mmol/L (3-11) Est Creatinine Clear Calc Drug Dose 12.0 ml/min Estimated GFR () 9.7 Estimated GFR (Non- 8.3 BUN/Creatinine Ratio 9.2 (10-20) Calcium Level 8.3 mg/dl (8.5-10.1) Phosphorus Level 5.8 mg/dl (2.5-4.9) Magnesium Level 2.6 mg/dl (1.8-2.4) Bedside Glucose (other) 272 mg/dl (70-99) Date/Time Source Procedure Growth Status 04/07/17 22:30 Nasal MRSA DNA Surveillance Screen - Final Specimen Negative for MRSA by DNA Probe Complete Allergies Coded Allergies: No Known Allergies (Unverified , 04/06/17) Medications Current Inpatient Medications Medications (Trade) Dose Ordered Sig/Brennan Route Start Time Stop Time Status Last Admin Dose Admin Amlodipine Besylate (Norvasc Tab) 5 mg QAM PO 04/07/17 09:00 05/07/17 08:59 Future Hold 04/07/17 07:50 5 MG Diphenhydramine HCl (Benadryl Cap) 25 mg Q8H PRN PO 04/07/17 00:00 05/07/17 00:00 Future Hold Insulin Glargine (Lantus Solostar Pen) 30 units HS SQ 04/07/17 21:00 05/07/17 20:59 Future Hold 04/07/17 19:51 30 UNITS Metoprolol Succinate (Toprol Xl Tab) 50 mg QPM PO 04/07/17 21:00 05/07/17 20:59 04/07/17 19:47 50 MG Sodium Bicarbonate (Sodium Bicarbonate Tab) 650 mg BIDM PO 04/07/17 07:30 05/07/17 07:59 04/08/17 07:57 650 MG Vitamin B Complex/ Vit C/Folic Acid (Nephrocaps) 1 cap DAILY PO 04/07/17 09:00 05/07/17 08:59 04/07/17 07:50 1 CAP Acetaminophen (Tylenol Tab) 650 mg Q4H PRN PO 04/07/17 00:00 05/07/17 00:00 Al Hydrox/Mg Hydrox/Simethicone (Maalox Max Susp) 15 ml Q4H PRN PO 04/07/17 00:00 05/07/17 00:00 Magnesium Hydroxide (Milk Of Magnesia Susp) 30 ml Q12H PRN PO 04/07/17 00:00 05/07/17 00:00 Albuterol/ Ipratropium (Duoneb) 3 ml QIDR INH 04/07/17 12:00 05/07/17 11:59 04/08/17 07:34 3 ML Cholestyramine Resin (Questran Powder Light) 4 gm BID@10,22 PO 04/07/17 22:00 05/07/17 21:59 Future Hold Vancomycin HCl (Consult) 1 ea UD PRN N/A 04/07/17 19:15 05/07/17 19:14 Piperacillin Sod/ Tazobactam Sod (Consult) 1 ea UD PRN N/A 04/07/17 19:15 05/07/17 19:14 Piperacillin Sod/ Tazobactam Sod 3.375 gm/Dextrose 115 ml @ 28.75 mls/ hr Q12H IV 04/08/17 02:00 04/15/17 01:59 04/08/17 01:45 28.75 MLS/HR Artificial Tears (Lacri-Lube Oph Oint) 1 appln Q2H PRN OPB 04/07/17 23:00 05/07/17 22:59 04/08/17 06:14 1 APPLN Midazolam HCl 250 ml @ 0 mls/hr Q0M PRN IV 04/07/17 22:50 05/07/17 22:49 04/08/17 00:19 5 MLS/HR Fentanyl Citrate 250 ml @ 0 mls/hr Q0M PRN IV 04/07/17 22:50 04/21/17 22:49 04/08/17 00:22 5 MLS/HR Buspirone HCl (BusPAR TAB) 60 mg ONE PRN NG 04/07/17 23:00 05/07/17 22:59 Meperidine HCl (Demerol Inj) 25 mg Q2H PRN IV 04/07/17 23:00 04/21/17 22:59 Norepinephrine Bitartrate 8 mg/ Dextrose 508 ml @ 0 mls/hr Q0M PRN IV 04/07/17 22:50 05/07/17 22:49 Phenylephrine HCl 40 mg/Dextrose 504 ml @ 0 mls/hr Q0M PRN IV 04/07/17 23:15 05/07/17 23:14 04/08/17 06:05 174 MLS/HR Ioversol (Optiray 320) 100 ml UD PRN IV 04/07/17 23:15 04/11/17 23:14 Heparin Sodium (Porcine) (Heparin Sq 5000 Unit/0.5ml) 5,000 unit Q12H SQ 04/08/17 09:00 05/08/17 08:59 04/08/17 10:00 5,000 UNIT Insulin Aspart (novoLOG ASPART) SLIDING SCALE PCHS SC 04/08/17 08:00 05/08/17 07:59 Insulin Human Regular 250 units/ Sodium Chloride 252.5 ml @ 0 mls/hr DAILY@1130 IV 04/08/17 00:15 05/08/17 00:14 04/08/17 00:40 3.7 MLS/HR Amiodarone HCL/ Dextrose 200 ml @ 16.7 mls/hr [id number] IV 04/08/17 02:30 05/08/17 02:29 04/08/17 02:24 16.7 MLS/HR Pantoprazole Sodium 40 mg/ Syringe 10 ml @ 5 mls/min DAILY@11 IV 04/08/17 11:00 05/08/17 10:59 04/08/17 09:59 5 MLS/MIN Ipratropium [place] (Atrovent Hfa Inhaler) 4 puffs QIDR INH 04/08/17 12:00 10/14/17 11:59 UNV Albuterol (Ventolin Hfa Inhaler) 4 puffs QIDR INH 04/08/17 12:00 05/08/17 11:59 Impression (1) Pneumonia (2) Diarrhea (3) ESRD on hemodialysis (4) Hypertension (5) Diabetes mellitus Recommendations END STAGE RENAL DISEASE: -- Patient completed HD at 4 am today. Serum bicarbonate improved to 22. Electrolytes acceptable -- CXR and Chest CT films reviewed this am. Patient has multilobar pneumonia. CXR shows mild pulmonary edema -- Discussed HD today w/ ICU team. Patient is being mechanically ventilated. O2 sats acceptable. Blood pressure remains tenuous. Patient requires pressor support. Will hold HD today and reassess need in am. -- Recommend avoiding Demerol due to accumulation of metabolites in ESRD CV: -- Await Cardiology input. Patient is s/p V-fib arrest. ECG was c/w prolonged QTc 604 msec. ID: -- Patient has multifocal pneumonia -- Avoid Quinolone antibiotics due to prolonged QT -- Currently on Vanco / Zosyn ANEMIA: -- H&H currently stable -- Required EGD w/ clipping of Dieulafoy lesion 03/11 45 minutes critical care time provided. This included time reviewing chart, examining patient, discussing care w/ ICU team and discussing plan of care w/ family
[2017-04-08] MEDS: IPRATROPIUM BROMIDE HFA INHALER INH SCH ×3 (11:32→19:41)
[2017-04-08] MEDS: ALBUTEROL HFA 8 GM INHALER INH SCH ×3 (11:32→19:41)
[2017-04-08 11:59] LABS: BASO % 0.2 %; BASO ABS # 0.03 K/uL (0-0.2); EOS % 0.1 %; HEMATOCRIT 23.1 % (42-52); IG% 2.6 %; LYMPH % 4.4 %; LYMPH ABS # 0.84 K/uL (1.2-3.4); MEAN CELL VOLUME 91.3 fL (80-100); MEAN CORPUSCULAR HEMOGLOBIN 29.2 pg (25-34); MEAN PLATELET VOLUME 11.5 fL (7.4-10.4); MONO % 3.2 %; NEUT % 89.5 %; PLATELET COUNT 162 K/uL (130-400); RED BLOOD COUNT 2.53 M/uL (4.7-6.1); WHITE BLOOD COUNT 19.07 K/uL (4.8-10.8)
[2017-04-08 12:11] LABS: INR 1.3 (0.9-1.1); PARTIAL THROMBOPLASTIN RATIO 1.6; PROTHROMBIN TIME (PATIENT) 14.3 SECONDS (9.0-12.0)
--- NOTE | 2017-04-08 12:23 | EEG Procedure Note ---
EEG Procedure Note Date of Service Apr 08, 2017. Start / End Times Start Time: 04/08/2017 at 2:23 AM End Time: 04/08/2017 at 16:[address] Weller History This is a 81-year-old male with in-hospital cardiac arrest and hypothermia protocol. Continuous video EEG monitoring per hypothermia protocol to monitor for subclinical seizures. Home Medication List Scheduled Amlodipine Besylate (Norvasc), 5 MG PO QAM Aspirin (Aspir-81), 81 MG PO QAM Hydrocortisone (Topical) (Hydrocortisone), 1 APPLN EXT BID Insulin Aspart (Novolog Flexpen), 18 UNITS SC QAM Insulin Aspart (Novolog Flexpen), 19 UNITS SQ LUNCH Insulin Aspart (Novolog Flexpen), 22 UNITS SQ QPM Insulin Glargine (Lantus Solostar), 30-35 UNITS SQ HS Lidocaine-Prilocaine (Tkixwolic-Gwmkhqmkje-Xygv 2.5-2.5 %), 1 APPLN TOP UD Metoprolol Succinate (Metoprolol Succinate ER), 50 MG PO QPM Ocuvite Preservision (Ocuvite Preservision), 2 TABS PO DAILY Ranitidine (Zantac), 150 MG PO HS Sodium Bicarbonate (Antacid) (Sodium Bicarbonate), 650 MG PO BIDM Vitamin B Cmplx/Vitc/Folic Ac (Nephrocaps), 1 CAP PO DAILY Scheduled PRN Diphenhydramine Hcl (Benadryl Allergy), 1 CAP PO every 12 hours PRN for itching Oxycodone/Acetaminophen 5MG/325MG (Percocet 5MG/325MG), 1-2 TABLETS PO Q8 PRN for Pain Inpatient Medication List Current Inpatient Medications Medications (Trade) Dose Ordered Sig/Brennan Route Start Time Stop Time Status Last Admin Dose Admin Amlodipine Besylate (Norvasc Tab) 5 mg QAM PO 04/07/17 09:00 05/07/17 08:59 Future Hold 04/07/17 07:50 5 MG Diphenhydramine HCl (Benadryl Cap) 25 mg Q8H PRN PO 04/07/17 00:00 05/07/17 00:00 Future Hold Metoprolol Succinate (Toprol Xl Tab) 50 mg QPM PO 04/07/17 21:00 05/07/17 20:59 Future Hold 04/07/17 19:47 50 MG Sodium Bicarbonate (Sodium Bicarbonate Tab) 650 mg BIDM PO 04/07/17 07:30 05/07/17 07:59 04/08/17 07:57 650 MG Vitamin B Complex/ Vit C/Folic Acid (Nephrocaps) 1 cap DAILY PO 04/07/17 09:00 05/07/17 08:59 Future Hold 04/07/17 07:50 1 CAP Acetaminophen (Tylenol Tab) 650 mg Q4H PRN PO 04/07/17 00:00 05/07/17 00:00 Al Hydrox/Mg Hydrox/Simethicone (Maalox Max Susp) 15 ml Q4H PRN PO 04/07/17 00:00 05/07/17 00:00 Magnesium Hydroxide (Milk Of Magnesia Susp) 30 ml Q12H PRN PO 04/07/17 00:00 05/07/17 00:00 Cholestyramine Resin (Questran Powder Light) 4 gm BID@10,22 PO 04/07/17 22:00 05/07/17 21:59 Future Hold Vancomycin HCl (Consult) 1 ea UD PRN N/A 04/07/17 19:15 05/07/17 19:14 Piperacillin Sod/ Tazobactam Sod (Consult) 1 ea UD PRN N/A 04/07/17 19:15 05/07/17 19:14 Piperacillin Sod/ Tazobactam Sod 3.375 gm/Dextrose 115 ml @ 28.75 mls/ hr Q12H IV 04/08/17 02:00 04/15/17 01:59 04/08/17 01:45 28.75 MLS/HR Artificial Tears (Lacri-Lube Oph Oint) 1 appln Q2H PRN OPB 04/07/17 23:00 05/07/17 22:59 04/08/17 06:14 1 APPLN Midazolam HCl 250 ml @ 0 mls/hr Q0M PRN IV 04/07/17 22:50 05/07/17 22:49 04/08/17 00:19 5 MLS/HR Fentanyl Citrate 250 ml @ 0 mls/hr Q0M PRN IV 04/07/17 22:50 04/21/17 22:49 04/08/17 00:22 5 MLS/HR Buspirone HCl (BusPAR TAB) 60 mg ONE PRN NG 04/07/17 23:00 05/07/17 22:59 Meperidine HCl (Demerol Inj) 25 mg Q2H PRN IV 04/07/17 23:00 04/21/17 22:59 Phenylephrine HCl 40 mg/Dextrose 504 ml @ 0 mls/hr Q0M PRN IV 04/07/17 23:15 05/07/17 23:14 04/08/17 11:45 195 MLS/HR Ioversol (Optiray 320) 100 ml UD PRN IV 04/07/17 23:15 04/11/17 23:14 Heparin Sodium (Porcine) (Heparin Sq 5000 Unit/0.5ml) 5,000 unit Q12H SQ 04/08/17 09:00 05/08/17 08:59 04/08/17 10:00 5,000 UNIT Insulin Aspart (novoLOG ASPART) SLIDING SCALE PCHS SC 04/08/17 08:00 05/08/17 07:59 Insulin Human Regular 250 units/ Sodium Chloride 252.5 ml @ 0 mls/hr DAILY@1130 IV 04/08/17 00:15 05/08/17 00:14 04/08/17 11:46 8.9 MLS/HR Amiodarone HCL/ Dextrose 200 ml @ 16.7 mls/hr [id number] IV 04/08/17 02:30 05/08/17 02:29 04/08/17 02:24 16.7 MLS/HR Pantoprazole Sodium 40 mg/ Syringe 10 ml @ 5 mls/min DAILY@11 IV 04/08/17 11:00 05/08/17 10:59 04/08/17 09:59 5 MLS/MIN Ipratropium [place] (Atrovent Hfa Inhaler) 4 puffs QIDR INH 04/08/17 12:00 05/08/17 11:59 04/08/17 11:32 4 PUFFS Albuterol (Ventolin Hfa Inhaler) 4 puffs QIDR INH 04/08/17 12:00 05/08/17 11:59 04/08/17 11:32 4 PUFFS Description This is a 21 electrode video EEG with a single channel dedicated to limited EKG. The electrodes were placed in accordance with the International 10-20 system. Post processing with an event detection algorithm is applied to the continuous data collection for the purpose of identifying abnormal epochs. These detections are reviewed and all candidate seizures are processed for further analysis. Data is reviewed in its raw format and patient events are processed, edited and stored. At the start of this recording the patient was in reported altered mental status. Background was poorly organized and there was no anterior to posterior gradient. Background was composed of predominantly symmetric moderate amplitude 6-7 Hz theta frequencies with intermixed delta and alpha frequencies. After 8 AM there was more of a mix of moderate to low amplitude 7-8 Hz theta/alpha frequencies and continued intermixed delta frequencies. Interpretation This is an abnormal continuous video EEG secondary to moderate background disorganization and slowing. There was no electrographic seizures or epileptiform discharges. Clinical Correlation This EEG indicates moderate encephalopathy of nonspecific etiology. Hypothermia and sedating medications can contribute to encephalopathy.
[2017-04-08 12:25] LABS: ISTAT ARTERIAL BLOOD GAS HCO3 23 meq/L (19-24); ISTAT ARTERIAL BLOOD GAS PCO2 46 mmHg (35-46); ISTAT ARTERIAL BLOOD GAS PO2 77 mmHg (80-95); ISTAT ARTERIAL BLOOD GAS pH 7.29 (7.35-7.45); ISTAT CARBON DIOXIDE 24 mEq/l (24-31); ISTAT DELIVERY SYSTEM Ventilator; ISTAT FIO2 100 %; ISTAT PEEP 15; ISTAT RATE 26; ISTAT SITE Art Line; VE 11.9; Vt 500
[2017-04-08 12:31] LABS: COMPLETE YES; VACUOLIZATION 1+
[2017-04-08 12:44] LABS: BUN/CREATININE RATIO 9.3 (10-20); CALCIUM 7.9 mg/dl (8.5-10.1); CREATININE 5.8 mg/dl (0.60-1.40); MAGNESIUM 2.4 mg/dl (1.8-2.4); PHOSPHORUS 5.4 mg/dl (2.5-4.9); POTASSIUM 3.4 mmol/L (3.5-5.1)
[2017-04-08] MEDS ORDERED: PHARMACY GLYCEMIC MGMT CONSULT PRN (13:45)
--- NOTE | 2017-04-08 13:54 | Pharmacy Progress Note ---
Pharmacy Abx Dose Short Note Date of Service Apr 08, 2017. Assessment & Plan Assessment 81 year old male receiving Vancomycin/Zosyn/Doxy IV for treatment of RLL pneumonia. Patient declined overnight, code blue, transferred to ICU post code. Vancomycin ordered last night, but held due to code blue and dialysis. Dialysis finished at 0400 this AM. Random that was entered by evening pharmacist for today never cancelled so please disregard. Vancomycin initiated post-HD today. All cultures pending. MRSA swab negative. Day # 1 of antimicrobial therapy. Plan Vancomycin * 2000 mg IV X 1 (20 mg/kg) * Goal Random level for tomorrow: 20 mcg/mL * Random level ordered for: 04/09/17 * Further dosing based on Pre-HD levels. Pharmacy will continue to follow and will adjust dose/frequency as necessary. Thank you.
[2017-04-08] MEDS ORDERED: DOXYCYCLINE HYCLATE 100 MG in DEXTROSE 5% 100ML IV SCH (14:00)
--- NOTE | 2017-04-08 14:02 | Pharmacy Progress Note ---
Glycemic Control Intl Consult Date of Service Apr 08, 2017. Scope Glycemic Pharmacist consulted by Dr Weller on 04/08/17 for glycemic control and to write orders per [facility] inpatient glycemic control protocol Objective Weight (Kilograms): 103.100 Accuchecks BSG (last 24hrs): Test 04/07/17 16:29 04/07/17 20:11 04/07/17 21:42 04/07/17 22:40 Bedside Glucose 172 mg/dl (70-99) 213 mg/dl (70-99) Random Glucose 379 mg/dl (70-99) 345 mg/dl (70-99) Test 04/08/17 04:01 04/08/17 08:38 04/08/17 11:47 Random Glucose 239 mg/dl (70-99) 274 mg/dl (70-99) 244 mg/dl (70-99) Laboratory Data (last 24hrs) Test 04/07/17 21:40 04/07/17 21:42 04/07/17 22:40 04/08/17 04:01 White Blood Count 15.33 K/uL 22.99 K/uL 22.53 K/uL Red Blood Count 2.66 M/uL 2.62 M/uL 2.62 M/uL Hemoglobin 8.0 g/dL 7.8 g/dL 7.8 g/dL Hematocrit 25.0 % 24.4 % 23.9 % Mean Corpuscular Volume 94.0 fL 93.1 fL 91.2 fL Mean Corpuscular Hemoglobin 30.1 pg 29.8 pg 29.8 pg Mean Corpuscular Hemoglobin Concent 32.0 g/dl 32.0 g/dl 32.6 g/dl Platelet Count 194 K/uL 280 K/uL 221 K/uL Mean Platelet Volume 12.5 fL 11.5 fL 11.3 fL Neutrophils (%) (Auto) 61.7 % 85.6 % Lymphocytes (%) (Auto) 24.2 % 5.2 % Monocytes (%) (Auto) 5.9 % 3.6 % Eosinophils (%) (Auto) 1.0 % 0.6 % Basophils (%) (Auto) 0.5 % 0.3 % Neutrophils # (Auto) 9.46 K/uL 19.68 K/uL Lymphocytes # (Auto) 3.71 K/uL 1.20 K/uL Monocytes # (Auto) 0.90 K/uL 0.83 K/uL Eosinophils # (Auto) 0.16 K/uL 0.13 K/uL Basophils # (Auto) 0.08 K/uL 0.06 K/uL Anion Gap 20.0 mmol/L 19.0 mmol/L 11.0 mmol/L BUN/Creatinine Ratio 9.5 9.7 9.7 Blood Urea Nitrogen 88 mg/dl 84 mg/dl 53 mg/dl Creatinine 9.20 mg/dl 8.70 mg/dl 5.50 mg/dl Potassium Level 3.7 mmol/L 4.0 mmol/L 3.8 mmol/L Sodium Level 133 mmol/L 137 mmol/L 136 mmol/L Test 04/08/17 08:38 04/08/17 11:47 Anion Gap 14.0 mmol/L 14.0 mmol/L BUN/Creatinine Ratio 9.2 9.3 Blood Urea Nitrogen 54 mg/dl 53 mg/dl Creatinine 5.90 mg/dl 5.80 mg/dl Potassium Level 3.9 mmol/L 3.4 mmol/L Sodium Level 133 mmol/L 134 mmol/L White Blood Count 19.34 K/uL 19.07 K/uL Red Blood Count 2.53 M/uL 2.53 M/uL Hemoglobin 7.7 g/dL 7.4 g/dL Hematocrit 23.1 % 23.1 % Mean Corpuscular Volume 91.3 fL 91.3 fL Mean Corpuscular Hemoglobin 30.4 pg 29.2 pg Mean Corpuscular Hemoglobin Concent 33.3 g/dl 32.0 g/dl Platelet Count 165 K/uL 162 K/uL Mean Platelet Volume 10.9 fL 11.5 fL Neutrophils (%) (Auto) 90.3 % 89.5 % Lymphocytes (%) (Auto) 3.3 % 4.4 % Monocytes (%) (Auto) 3.9 % 3.2 % Eosinophils (%) (Auto) 0.0 % 0.1 % Basophils (%) (Auto) 0.1 % 0.2 % Neutrophils # (Auto) 17.46 K/uL 17.09 K/uL Lymphocytes # (Auto) 0.63 K/uL 0.84 K/uL Monocytes # (Auto) 0.76 K/uL 0.61 K/uL Eosinophils # (Auto) 0.00 K/uL 0.01 K/uL Basophils # (Auto) 0.02 K/uL 0.03 K/uL HbA1c Item Value Date Time Hemoglobin A1c 7.4 % H 01/25/17 0651 Recent Pertinent Medications Outpatient Anti-diabetic Regimen: * Lantus 30-35 units HS * Novolog units TIDM Risk Factors for Insulin Resistance: * Infection: Broad spectrum * Pressors: YES * Diet: NPO * Mechanical Ventilation: YES Assessment & Plan ASSESSMENT: * 81 yo diabetic M admitted to ICU s/p code blue overnight. * Patient started on insulin drip per protocol overnight and will remain on the drip due to critical condition and current stressors. * ADA & AACE recommend a goal blood sugar range 140-180 mg/dl for the majority of critically ill & non-critically ill patients. Goal range of 100-180 mg/dL will be instituted in attempt to cut down on BSG checks once within goal range. PLAN FOR INPATIENT GLYCEMIC CONTROL: * Continue IV insulin drip per protocol * Goal Range 100 - 180 mg/dl * In the critical care setting, continuous IV insulin infusion has been shown to be the best method for achieving glycemic targets. * Please note that the plan above was derived based on current level of insulin resistance and hospital stress. These recommendations are appropriate for inpatient admission only. Plan of care upon discharge will need to be reassessed to avoid potential outpatient hypo/hyperglycemia. Thank you.
--- NOTE | 2017-04-08 14:11 | ECHOCARDIOGRAM REPORT ---
*NOTICE TO RECEIVING DEMOCRAT AGENCY This information is strictly Confidential and protected under [place] law. [place] law prohibits you from making any further disclosure of this information unless further disclosure is expressly permitted by the written consent of the person to whom it pertains or is authorized by law. A general authorization for the release of medical or other information is not sufficient for this purpose. Hospital accepts no responsibility if the information is made available to any other person, INCLUDING THE PATIENT. Interpretation Summary * Name: SADIQ JACKSON Study Date: 04/08/2017 07:03 AM BP: 99/59 mmHg * Patient Location: C.2T\S\E220\S\1 HR: 68 * : 1935 (M/d/yyyy) Gender: Male Height: 69 in * Age: 81 yrs Ethnicity: [place] Weight: 217 lb * Ordering Physician: Tamar Edmonds * Referring Physician: Self, Referred * Performed By: Jo Ann Olivera RCS * * Reason For Study: CHEST PAIN * BSA: 2.1 m2 * Moderate left ventricular systolic dysfunction. * Mild left ventricular dilatation. * Global left ventricular hypokinesis except for apical akinesis. * Mild concentric left ventricular hypertrophy. * Grade 2 left ventricular diastolic dysfunction. * Mild right ventricular dilatation with mild to moderate right ventricular systolic dysfunction. * Severe calcific aortic stenosis. * [id number] mitral regurgitation. * Mild tricuspid regurgitation. * Mildly elevated estimated right ventricular systolic pressure. * Elevated central venous pressure. * -- Conclusions -- * There is severe calcific aortic valve stenosis. Procedure Details * A complete two-dimensional transthoracic echocardiogram was performed (2D, M-mode, Doppler and color flow Doppler). * The study was technically difficult. * There were technical limitations due to patient'ssupine positioning while on mechanical ventilation * A contrast injection of Definity was performed to improve assessment of LV function. * Contrast was injected into an intravenous site in the central line. * One vial of Definity ultrasound contrast was diluted in normal saline to a total volume of 10 ml. A total of '2' ml of solution was administered during imaging. * Lot # [id number] of Definity utilized for procedure. * Expiration date MAY 12. * The attending nurse who injected the contrast agent was SHANA D., ICU, RN. Left Ventricle * The left ventricle is mildly dilated. * There is no thrombus. * There is mild concentric left ventricular hypertrophy. * Left ventricular systolic function is moderately reduced. * Ejection Fraction = 30-35%. * Diastolic dysfunction, Grade II (pseudonormalization pattern). Right Ventricle * The right ventricle is mildly dilated. * The right ventricular systolic function is mild to moderately reduced. Atria * The left atrium is mildly dilated. * Right atrial size is normal. Mitral Valve * There is moderate mitral annular calcification. * There is no mitral valve stenosis. * There is mild to moderate mitral regurgitation. Tricuspid Valve * The tricuspid valve is not well visualized. * There is no tricuspid stenosis. * There is mild tricuspid regurgitation. * Right ventricular systolic pressure is elevated at 30-40mmHg. Aortic Valve * The aortic valve is trileaflet. * Calcified .Decreased opening on 2 D imaging. * There is severe calcific aortic valve stenosis. * Aortic valve area was calculated at 0.74 cm\S\2 using the continuity equation. * Dimensionless aortic valve index 0.22. * No aortic regurgitation is present. Pulmonic Valve * The pulmonic valve is not well visualized. * The pulmonary valve is inadequately visualized, but the Doppler data is adequate for interpretation. * There is no pulmonic valvular stenosis. * There is no significant pulmonary regurgitation. Great Vessels * The aortic root is normal size. Pericardium/Pleural * There is no pericardial effusion. Great Vessels * The inferior vena cava is mildly dilated. MMode 2D Measurements and Calculations IVSd 1.3 cm IVSs 1.9 cm LVIDd 5.7 cm LVIDs 4.8 cm LVPWd 1.3 cm LVPWs 1.5 cm IVS/LVPW 1.0 FS 17.3 % EDV(Teich) 163.2 ml ESV(Teich) 105.2 ml EF(Teich) 35.5 % EDV(cubed) 189.9 ml ESV(cubed) 107.6 ml EF(cubed) 43.3 % % IVS thick 45.5 % % LVPW thick 20.9 % LV mass(C)d 321.7 grams LV mass(C)dI 150.4 grams/m\S\2 LV mass(C)s 367.8 grams LV mass(C)sI 172.0 grams/m\S\2 SV(Teich) 57.9 ml SI(Teich) 27.1 ml/m\S\2 SV(cubed) 82.3 ml SI(cubed) 38.5 ml/m\S\2 Ao root diam 3.0 cm Ao root area 7.0 cm\S\2 ACS 1.6 cm LA dimension 4.4 cm LA/Ao 1.5 LVOT diam 2.0 cm LVOT area 3.3 cm\S\2 Doppler Measurements and Calculations MV E max cecily 111.6 cm/sec MV A max cecily 97.7 cm/sec MV E/A 1.1 MV P1/2t max cecily 110.4 cm/sec MV P1/2t 90.9 msec MVA(P1/2t) 2.4 cm\S\2 MV dec slope 355.8 cm/sec\S\2 MV dec time 0.18 sec Ao V2 max 254.7 cm/sec Ao max PG 25.9 mmHg Ao max PG (full) 24.6 mmHg Ao V2 mean 175.1 cm/sec Ao mean PG 13.7 mmHg Ao mean PG (full) 12.9 mmHg Ao V2 VTI 54.3 cm EDITH(I,A) 0.83 cm\S\2 EDITH(I,D) 0.83 cm\S\2 EDITH(V,A) 0.74 cm\S\2 EDITH(V,D) 0.74 cm\S\2 LV V1 max PG 1.3 mmHg LV V1 mean PG 0.82 mmHg LV V1 max 57.0 cm/sec LV V1 mean 43.7 cm/sec LV V1 VTI 13.8 cm MR max cecily 453.0 cm/sec MR max PG 82.1 mmHg SV(Ao) 381.8 ml SI(Ao) 178.5 ml/m\S\2 SV(LVOT) 45.3 ml SI(LVOT) 21.2 ml/m\S\2 TR max cecily 258.8 cm/sec
[2017-04-08] MEDS: DOXYCYCLINE HYCLATE 100 MG in DEXTROSE 5% 100ML IV SCH (14:13)
--- NOTE | 2017-04-08 14:57 | Hospitalist Progress Note ---
Hospitalist Progress Note Date of Service Apr 08, 2017. (Sigrid Nava ., BITA) Subjective Pt evaluation today including: physical exam, chart review, lab review, review of studies, conversation w/ internet marketing consultant (spoke with Dr. Weller), review of inpatient medication list Patient unresponsive. Unable to obtain ROS. Additional Comments: Unable to obtain ROS from patient due to condition. (Sigrid Nava ., BITA) Objective Vital Signs Date Time Temp Pulse Resp B/P (MAP) Pulse Ox O2 Delivery O2 Flow Rate FiO2 04/08/17 14:00 35.1 63 26 116/61 (79) 99 Mechanical Ventilator 100 112/47 (68) 04/08/17 13:15 35.1 04/08/17 13:00 35.1 63 26 118/61 (80) 100 Mechanical Ventilator 100 117/44 (68) 04/08/17 13:00 35.1 04/08/17 12:45 35.1 04/08/17 12:00 100 04/08/17 12:00 100 Mechanical Ventilator 100 04/08/17 12:00 35.1 61 26 110/64 (79) 100 Mechanical Ventilator 100 110/40 (63) 04/08/17 11:45 35.1 04/08/17 11:32 100 04/08/17 11:30 35.1 04/08/17 11:15 35.1 04/08/17 11:00 35.1 04/08/17 11:00 35.1 62 26 109/56 (73) 99 Mechanical Ventilator 100 105/39 (61) 04/08/17 10:45 35.1 04/08/17 10:15 35.1 04/08/17 10:00 35.1 63 26 113/63 (80) 97 Mechanical Ventilator 100 104/39 (60) 04/08/17 09:45 35.1 04/08/17 09:30 35.1 04/08/17 09:15 35.1 04/08/17 09:00 35.1 65 26 109/60 (76) 95 Mechanical Ventilator 100 106/42 (63) 04/08/17 08:45 35.1 04/08/17 08:30 35.1 04/08/17 08:15 35.1 04/08/17 08:00 35.1 65 26 108/59 (75) 92 Mechanical Ventilator 100 107/42 (63) 04/08/17 08:00 35.1 04/08/17 08:00 100 04/08/17 08:00 Mechanical Ventilator 100 04/08/17 08:00 92 Mechanical Ventilator 100 04/08/17 07:34 100 04/08/17 07:34 66 26 92 Mechanical Ventilator 100 04/08/17 07:00 35.2 68 26 97/54 (68) 92 Mechanical Ventilator 100 109/56 (73) 04/08/17 06:30 35.1 68 26 (62) 93 94/46 04/08/17 06:15 35.1 70 26 (71) 93 101/55 04/08/17 06:00 35.1 71 26 91/56 (68) 90 Mechanical Ventilator 100 95/53 (67) 04/08/17 06:00 35.1 70 26 91/57 (63) 91 96/54 04/08/17 05:45 35.1 71 26 (66) 91 92/52 04/08/17 05:30 35.1 72 26 (69) 89 94/55 04/08/17 05:15 35.1 74 26 (72) 90 99/56 04/08/17 05:01 35.1 75 26 91/56 (69) 92 97/54 04/08/17 05:00 35.1 76 26 96/70 (79) 91 Mechanical Ventilator 100 95/50 (65) 04/08/17 05:00 35.1 76 26 (67) 92 96/51 04/08/17 04:45 35.4 79 26 (68) 92 99/51 04/08/17 04:30 35.4 79 26 (67) 92 95/51 04/08/17 04:20 35.4 80 99/59 (72) 04/08/17 04:15 35.4 79 26 (67) 92 95/52 04/08/17 04:01 35.4 80 26 96/70 (65) 91 93/51 04/08/17 04:00 35.4 80 26 98/61 (73) 92 Mechanical Ventilator 100 96/53 (67) 04/08/17 04:00 Mechanical Ventilator 04/08/17 04:00 100 04/08/17 03:50 35.3 81 26 99/59 (66) 92 92/52 04/08/17 03:45 82 94/60 04/08/17 03:30 83 94/60 04/08/17 03:26 35.3 83 26 94/60 (61) 89 86/48 04/08/17 03:15 83 88/61 04/08/17 03:15 35.3 83 26 90/59 (77) 89 88/51 04/08/17 03:01 35.3 86 26 95/63 (68) 90 96/54 04/08/17 03:00 86 94/65 04/08/17 03:00 35.3 86 26 95/63 (74) 90 Mechanical Ventilator 100 94/51 (65) 04/08/17 02:46 35.2 86 26 96/56 (65) 90 95/51 04/08/17 02:45 88 101/58 04/08/17 02:31 35.2 91 26 100/62 (74) 87 105/57 04/08/17 02:30 90 101/64 04/08/17 02:17 100 04/08/17 02:16 35.2 90 26 102/63 (68) 88 101/53 04/08/17 02:15 91 100/62 04/08/17 02:11 35.2 92 26 100/62 (74) 88 106/58 04/08/17 02:06 35.2 94 26 116/64 (76) 88 107/59 04/08/17 02:01 35.2 90 26 100/66 (75) 88 107/58 04/08/17 02:00 35.2 94 26 100/57 (71) 87 Mechanical Ventilator 100 103/53 (70) 04/08/17 02:00 95 100/57 04/08/17 01:56 35.1 88 26 100/57 (66) 87 99/51 04/08/17 01:54 127 110/72 04/08/17 01:51 35.1 87 26 91/63 (70) 88 105/54 04/08/17 01:51 101 99/60 04/08/17 01:50 115 96/73 04/08/17 01:46 35.1 87 26 105/54 (64) 88 110/47 04/08/17 01:45 97 91/65 04/08/17 01:41 35.1 88 26 91/65 (71) 88 106/54 04/08/17 01:36 35.1 87 26 99/58 (65) 91 114/47 04/08/17 01:30 95 88/65 04/08/17 01:30 35.1 97 26 117/70 (75) 97 114/50 04/08/17 01:21 35.1 97 26 109/63 (76) 86 110/58 04/08/17 01:16 35.1 95 26 103/69 (77) 88 112/59 04/08/17 01:15 95 109/63 04/08/17 01:10 35.1 96 26 106/65 (72) 92 115/59 04/08/17 01:05 35.1 95 26 111/66 (87) 97 121/62 04/08/17 01:01 35.0 98 104/63 (77) 04/08/17 01:00 35.1 95 26 93/63 (67) 100 106/56 04/08/17 01:00 35.1 97 26 98/60 (73) 100 Mechanical Ventilator 100 111/56 (74) 04/08/17 01:00 96 106/65 04/08/17 00:55 35.3 96 26 98/60 (84) 73 113/61 04/08/17 00:53 98 104/63 04/08/17 00:50 35.3 98 26 104/63 (81) 74 112/58 04/08/17 00:45 98 103/62 04/08/17 00:45 35.3 98 26 103/62 (81) 74 112/58 04/08/17 00:40 35.3 100 26 102/63 (83) 76 110/59 04/08/17 00:35 35.3 102 26 102/63 (78) 74 111/59 04/08/17 00:30 35.3 102 26 108/66 (77) 74 117/62 04/08/17 00:25 35.3 106 26 112/65 (82) 70 118/63 04/08/17 00:21 35.3 107 26 104/78 (81) 116/63 04/08/17 00:16 35.3 109 26 110/78 (80) 120/59 04/08/17 00:15 35.3 109 26 (82) 122/61 914/17 00:01 35.3 109 26 114/59 (77) 74 Mechanical Ventilator 100 122/63 (82) 04/08/17 00:01 Mechanical Ventilator 04/08/17 00:01 100 04/08/17 00:00 99 26 100/62 (75) 04/07/17 23:58 99 26 96/48 (64) 04/07/17 23:15 106 26 108/64 (79) 04/07/17 23:00 101 26 99/60 (73) 04/07/17 22:52 107 26 106/49 (68) 04/07/17 22:45 113 26 96/73 (81) 04/07/17 22:30 124 20 106/73 (84) 04/07/17 22:19 100 04/07/17 22:16 126 20 108/49 (68) 04/07/17 22:15 126 20 108/48 (68) 04/07/17 22:01 137 142/86 (104) 92 04/07/17 22:00 36.5 137 20 142/89 (106) 92 Mechanical Ventilator 100 04/07/17 20:00 95 Room Air 04/07/17 19:16 36.4 107 18 128/68 (88) 95 Room Air 04/07/17 19:07 88 18 92 Room Air 04/07/17 16:15 86 18 92 Room Air 04/07/17 16:00 94 Room Air 04/07/17 15:35 36.6 97 16 134/69 (90) 93 Room Air (Sigrid Nava, PA-C) Physical Exam Notes: General appearance: +Appears chronically ill. Obese. Unresponsive to verbal and physical stimuli. Head: Normocephalic, atraumatic Eyes: +Exam limited by pt condition. ENT: +Intubated. Exam limited by pt condition. Neck: Supple, no JVD, trachea midline Respiratory/Chest: +Diminished breath sounds. Left side of chest very TTP and ecchymotic. Lungs clear to auscultation, no respiratory distress Cardiovascular: +Systolic murmur. Regular rate & rhythm, no gallop Abdomen/GI: Normal bowel sounds, non-tender, soft Extremities/Musculoskeletal: Normal inspection, no calf tenderness, no pedal edema Neurological/Psych: +Unresponsive, intubated. Currently off sedation. Unable to assess mood/orientation. Skin: +Ecchymosis left lateral chest and shoulder. Skin cool to the touch. Active code arctic. Normal color, no rash (Sigrid Nava ., BITA) Laboratory Results Last 24 Hours Test 04/07/17 16:29 04/07/17 18:43 04/07/17 20:11 04/07/17 21:30 Bedside Glucose 172 mg/dl 213 mg/dl Hemoglobin 8.0 g/dL Hematocrit 24.8 % Bedside Hemoglobin 8.8 g/dl Bedside Hematocrit 26 % Bedside Blood Gas pH (LAB) 6.97 Bedside Blood Gas pCO2 (LAB) 47 mmHg Bedside Blood Gas pO2 (LAB) 82 mmHg Bedside Blood Gas HCO3 (LAB) 11 meq/L Bedside Blood Gas Total CO2 12 mEq/l Bedside Blood Gas Base Excess (LAB) -21.0 meq/L Bedside Blood Gas O2 Saturation 87.0 % Bedside Sodium 131 mEq/L Bedside Potassium 4.0 mEq/L Test 04/07/17 21:40 04/07/17 21:42 04/07/17 22:37 04/07/17 22:40 White Blood Count 15.33 K/uL 22.99 K/uL Red Blood Count 2.66 M/uL 2.62 M/uL Hemoglobin 8.0 g/dL 7.8 g/dL Hematocrit 25.0 % 24.4 % Mean Corpuscular Volume 94.0 fL 93.1 fL Mean Corpuscular Hemoglobin 30.1 pg 29.8 pg Mean Corpuscular Hemoglobin Concent 32.0 g/dl 32.0 g/dl Platelet Count 194 K/uL 280 K/uL Mean Platelet Volume 12.5 fL 11.5 fL Neutrophils (%) (Auto) 61.7 % 85.6 % Lymphocytes (%) (Auto) 24.2 % 5.2 % Monocytes (%) (Auto) 5.9 % 3.6 % Eosinophils (%) (Auto) 1.0 % 0.6 % Basophils (%) (Auto) 0.5 % 0.3 % Neutrophils # (Auto) 9.46 K/uL 19.68 K/uL Lymphocytes # (Auto) 3.71 K/uL 1.20 K/uL Monocytes # (Auto) 0.90 K/uL 0.83 K/uL Eosinophils # (Auto) 0.16 K/uL 0.13 K/uL Basophils # (Auto) 0.08 K/uL 0.06 K/uL RDW Standard Deviation 57.3 fL 56.2 fL RDW Coefficient of Variation 16.7 % 16.5 % Immature Granulocyte % (Auto) 6.7 % 4.7 % Immature Granulocyte # (Auto) 1.02 K/uL 1.09 K/uL Nucleated RBC Absolute Count (auto) 0.13 K/uL 0.04 K/uL Nucleated Red Blood Cells % 0.8 % 0.2 % Poikilocytosis PRESENT Schistocytes OCCASIONAL Prothrombin Time 11.2 SECONDS Prothromb Time International Ratio 1.0 Activated Partial Thromboplast Time 39.8 SECONDS Partial Thromboplastin Ratio 1.5 Sodium Level 133 mmol/L 137 mmol/L Potassium Level 3.7 mmol/L 4.0 mmol/L Chloride Level 99 mmol/L 100 mmol/L Carbon Dioxide Level 14 mmol/L 18 mmol/L Anion Gap 20.0 mmol/L 19.0 mmol/L Blood Urea Nitrogen 88 mg/dl 84 mg/dl Creatinine 9.20 mg/dl 8.70 mg/dl Est Creatinine Clear Calc Drug Dose 7.5 ml/min 8.0 ml/min Estimated GFR () 5.6 6.0 Estimated GFR (Non- 4.9 5.2 BUN/Creatinine Ratio 9.5 9.7 Random Glucose 379 mg/dl 345 mg/dl Calcium Level 11.1 mg/dl 9.5 mg/dl Total Bilirubin 0.3 mg/dl 0.5 mg/dl Aspartate Amino Transf (AST/SGOT) 185 U/L 250 U/L Alanine Aminotransferase (ALT/SGPT) 131 U/L 162 U/L Alkaline Phosphatase 103 U/L 115 U/L Troponin I 0.588 ng/ml Total Protein 6.3 gm/dl 6.1 gm/dl Albumin 2.1 gm/dl 2.0 gm/dl Globulin 4.2 gm/dl Albumin/Globulin Ratio 0.5 Beta-Hydroxybutyric Acid 12.14 mg/dL 7.67 mg/dL Bedside Hemoglobin 7.8 g/dl Bedside Hematocrit 23 % Bedside Blood Gas pH (LAB) 7.04 Bedside Blood Gas pCO2 (LAB) 61 mmHg Bedside Blood Gas pO2 (LAB) 56 mmHg Bedside Blood Gas HCO3 (LAB) 17 meq/L Bedside Blood Gas Total CO2 18 mEq/l Bedside Blood Gas Base Excess (LAB) -14.0 meq/L Bedside Blood Gas O2 Saturation 73.0 % Bedside Sodium 137 mEq/L Bedside Potassium 3.6 mEq/L Polychromasia 1+ Echinocytes 1+ Lactic Acid Level 9.0 mmol/L Phosphorus Level 9.0 mg/dl Magnesium Level 3.3 mg/dl Direct Bilirubin 0.2 mg/dl Procalcitonin 0.65 ng/ml Random Cortisol 49.33 mcg/dl Test 04/07/17 22:50 04/07/17 23:10 04/08/17 01:44 04/08/17 02:43 Creatine Kinase MB Ratio Creatine Kinase MB 7.1 ng/ml Troponin I 0.805 ng/ml Bedside Glucose (other) 223 mg/dl 193 mg/dl Test 04/08/17 03:33 04/08/17 04:00 04/08/17 04:01 04/08/17 04:14 Bedside Glucose (other) 176 mg/dl Arterial Blood pH 7.21 Arterial Blood Partial Pressure CO2 60 mmHg Arterial Blood Partial Pressure O2 69 mm/Hg Arterial Blood HCO3 23 mmol/L Arterial Blood Oxygen Saturation 88.0 % Arterial Blood Base Excess -4.6 mEq/L Arterial Blood Gas Delivery 100% Raciel Test POS White Blood Count 22.53 K/uL Red Blood Count 2.62 M/uL Hemoglobin 7.8 g/dL Hematocrit 23.9 % Mean Corpuscular Volume 91.2 fL Mean Corpuscular Hemoglobin 29.8 pg Mean Corpuscular Hemoglobin Concent 32.6 g/dl Platelet Count 221 K/uL Mean Platelet Volume 11.3 fL RDW Standard Deviation 55.1 fL RDW Coefficient of Variation 16.5 % Nucleated RBC Absolute Count (auto) 0.03 K/uL Neutrophils % (Manual) 93.9 % Lymphocytes % (Manual) 0.0 % Monocytes % (Manual) 6.1 % Nucleated Red Blood Cells % 0.1 % Neutrophils # (Manual) 21.16 K/uL Total Absolute Neutrophils 21.16 K/uL Total Absolute Lymphocytes 0.00 K/uL Monocytes # (Manual) 1.37 K/uL Basophilic Stippling 1+ Prothrombin Time 12.2 SECONDS Prothromb Time International Ratio 1.1 Activated Partial Thromboplast Time 39.0 SECONDS Partial Thromboplastin Ratio 1.5 Sodium Level 136 mmol/L Potassium Level 3.8 mmol/L Chloride Level 100 mmol/L Carbon Dioxide Level 25 mmol/L Anion Gap 11.0 mmol/L Blood Urea Nitrogen 53 mg/dl Creatinine 5.50 mg/dl Est Creatinine Clear Calc Drug Dose 12.9 ml/min Estimated GFR () 10.5 Estimated GFR (Non- 9.1 BUN/Creatinine Ratio 9.7 Random Glucose 239 mg/dl Calcium Level 7.7 mg/dl Phosphorus Level 5.2 mg/dl Magnesium Level 2.5 mg/dl Total Creatine Kinase 589 U/L Creatine Kinase MB 48.1 ng/ml Creatine Kinase MB Ratio 8.2 Troponin I 14.900 ng/ml Random Vancomycin Level < 0.8 mcg/ml Bedside Hemoglobin 7.8 g/dl Bedside Hematocrit 23 % Bedside Blood Gas pH (LAB) 7.22 Bedside Blood Gas pCO2 (LAB) 59 mmHg Bedside Blood Gas pO2 (LAB) 65 mmHg Bedside Blood Gas HCO3 (LAB) 24 meq/L Bedside Blood Gas Total CO2 26 mEq/l Bedside Blood Gas Base Excess (LAB) -4.0 meq/L Bedside Blood Gas O2 Saturation 87.0 % Bedside Sodium 135 mEq/L Bedside Potassium 3.7 mEq/L Test 04/08/17 05:34 04/08/17 06:30 04/08/17 07:39 04/08/17 08:05 Bedside Glucose (other) 254 mg/dl 250 mg/dl 256 mg/dl Blood Gas Sample Site Art Line Bedside Blood Gas pH (LAB) 7.27 Bedside Blood Gas pCO2 (LAB) 47 mmHg Bedside Blood Gas pO2 (LAB) 55 mmHg Bedside Blood Gas HCO3 (LAB) 22 meq/L Bedside Blood Gas Total CO2 23 mEq/l Bedside Blood Gas Base Excess (LAB) -5.0 meq/L Bedside Blood Gas O2 Saturation 87.0 % Raciel Test NA Oxygen Delivery Device Ventilator Bedside Oxygen Rate (breaths/min) 26 Blood Gas Minute Ventilation 12.5 Bedside FiO2 100 % Blood Gas Tidal Volume 500 Blood Gas PEEP 12 Test 04/08/17 08:38 04/08/17 08:49 04/08/17 10:06 04/08/17 11:04 White Blood Count 19.34 K/uL Red Blood Count 2.53 M/uL Hemoglobin 7.7 g/dL Hematocrit 23.1 % Mean Corpuscular Volume 91.3 fL Mean Corpuscular Hemoglobin 30.4 pg Mean Corpuscular Hemoglobin Concent 33.3 g/dl Platelet Count 165 K/uL Mean Platelet Volume 10.9 fL Neutrophils (%) (Auto) 90.3 % Lymphocytes (%) (Auto) 3.3 % Monocytes (%) (Auto) 3.9 % Eosinophils (%) (Auto) 0.0 % Basophils (%) (Auto) 0.1 % Neutrophils # (Auto) 17.46 K/uL Lymphocytes # (Auto) 0.63 K/uL Monocytes # (Auto) 0.76 K/uL Eosinophils # (Auto) 0.00 K/uL Basophils # (Auto) 0.02 K/uL RDW Standard Deviation 55.3 fL RDW Coefficient of Variation 16.7 % Immature Granulocyte % (Auto) 2.4 % Immature Granulocyte # (Auto) 0.47 K/uL Basophilic Stippling 1+ Echinocytes 1+ Prothrombin Time 13.7 SECONDS Prothromb Time International Ratio 1.3 Activated Partial Thromboplast Time 41.5 SECONDS Partial Thromboplastin Ratio 1.6 Sodium Level 133 mmol/L Potassium Level 3.9 mmol/L Chloride Level 97 mmol/L Carbon Dioxide Level 22 mmol/L Anion Gap 14.0 mmol/L Blood Urea Nitrogen 54 mg/dl Creatinine 5.90 mg/dl Est Creatinine Clear Calc Drug Dose 12.0 ml/min Estimated GFR () 9.7 Estimated GFR (Non- 8.3 BUN/Creatinine Ratio 9.2 Random Glucose 274 mg/dl Calcium Level 8.3 mg/dl Phosphorus Level 5.8 mg/dl Magnesium Level 2.6 mg/dl Bedside Glucose (other) 272 mg/dl 271 mg/dl 264 mg/dl Test 04/08/17 11:47 04/08/17 11:55 04/08/17 12:13 04/08/17 13:14 White Blood Count 19.07 K/uL Red Blood Count 2.53 M/uL Hemoglobin 7.4 g/dL Hematocrit 23.1 % Mean Corpuscular Volume 91.3 fL Mean Corpuscular Hemoglobin 29.2 pg Mean Corpuscular Hemoglobin Concent 32.0 g/dl Platelet Count 162 K/uL Mean Platelet Volume 11.5 fL Neutrophils (%) (Auto) 89.5 % Lymphocytes (%) (Auto) 4.4 % Monocytes (%) (Auto) 3.2 % Eosinophils (%) (Auto) 0.1 % Basophils (%) (Auto) 0.2 % Neutrophils # (Auto) 17.09 K/uL Lymphocytes # (Auto) 0.84 K/uL Monocytes # (Auto) 0.61 K/uL Eosinophils # (Auto) 0.01 K/uL Basophils # (Auto) 0.03 K/uL RDW Standard Deviation 55.9 fL RDW Coefficient of Variation 16.5 % Immature Granulocyte % (Auto) 2.6 % Immature Granulocyte # (Auto) 0.49 K/uL Toxic Vacuolation 1+ Basophilic Stippling 1+ Prothrombin Time 14.3 SECONDS Prothromb Time International Ratio 1.3 Activated Partial Thromboplast Time 41.1 SECONDS Partial Thromboplastin Ratio 1.6 Sodium Level 134 mmol/L Potassium Level 3.4 mmol/L Chloride Level 98 mmol/L Carbon Dioxide Level 22 mmol/L Anion Gap 14.0 mmol/L Blood Urea Nitrogen 53 mg/dl Creatinine 5.80 mg/dl Est Creatinine Clear Calc Drug Dose 12.2 ml/min Estimated GFR () 9.9 Estimated GFR (Non- 8.5 BUN/Creatinine Ratio 9.3 Random Glucose 244 mg/dl Calcium Level 7.9 mg/dl Phosphorus Level 5.4 mg/dl Magnesium Level 2.4 mg/dl Bedside Glucose (other) 254 mg/dl 246 mg/dl Blood Gas Sample Site Art Line Bedside Blood Gas pH (LAB) 7.29 Bedside Blood Gas pCO2 (LAB) 46 mmHg Bedside Blood Gas pO2 (LAB) 77 mmHg Bedside Blood Gas HCO3 (LAB) 23 meq/L Bedside Blood Gas Total CO2 24 mEq/l Bedside Blood Gas Base Excess (LAB) -4.0 meq/L Bedside Blood Gas O2 Saturation 95.0 % Raciel Test NA Oxygen Delivery Device Ventilator Bedside Oxygen Rate (breaths/min) 26 Blood Gas Minute Ventilation 11.9 Bedside FiO2 100 % Blood Gas Tidal Volume 500 Blood Gas PEEP 15 (Sigrid Nava, PA-C) Diagnostic Results Reviewed the following studies and agree with interpretation as follows: CT OF THE HEAD WITHOUT CONTRAST CLINICAL HISTORY: Cardiac arrest. COMPARISON STUDY: No previous studies for comparison. TECHNIQUE: Helical axial images of the head were obtained without IV contrast. Automated exposure control was utilized for the study. A dose lowering technique was utilized adhering to the principles of ALARA. FINDINGS: No acute intracranial hemorrhage, midline shift or mass effect is present. Ventricular system is normal for age. Basilar cisterns are patent. There are no extra-axial collections. Moderate white matter hypodensity suggests small vessel disease. 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 There are no CT findings to suggest acute dural sinus thrombosis or acute territorial infarct. There are no significant calvarial abnormalities. There are secretions within the nasopharynx. Air-fluid levels are noted within the ethmoid sinuses. IMPRESSION: 1. No acute intracranial findings. 2. 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 3. Secretions within the nasopharynx and fluid within the ethmoid sinuses which may be related to intubation. CHEST CTA for PULMONARY ARTERIES CT DOSE: 1341.64 mGy.cm HISTORY: Cardiac arrest. TECHNIQUE: Multiaxial CT images of the chest were performed following the intravenous administration of contrast to evaluate the pulmonary arteries. Maximal intensity projection images were also obtained. A dose lowering technique was utilized adhering to the principles of ALARA. COMPARISON STUDY: Chest 04/07/2017. FINDINGS: The endotracheal tube terminates in the right mainstem bronchus. Approximately 50% stenosis at the takeoff of the left common carotid artery. Normal caliber thoracic aorta with no evidence for dissection. Trace bilateral pleural effusions. No filling defects within the pulmonary arteries to suggest pulmonary embolus. Dense consolidation within the majority of the right lower lobe and posterior aspect of the right upper lobe. There is also a small amount of consolidation within the right middle lobe posteriorly. Dense consolidation with collapse of the left lower lobe. Interlobular septal thickening within the lungs. There are a few scattered indeterminate nodules. Dominant nodule seen within the left lung apex and measures 5 mm. Multiple bilateral anterior rib fractures. Nondisplaced left humeral neck fracture. Retrograde flow of contrast into the hepatic veins and IVC. No mediastinal or hilar lymphadenopathy. Nondisplaced sternal fracture. Small left adrenal gland nodule. Small left thyroid nodule. IMPRESSION: 1. No evidence for pulmonary embolus. 2. The endotracheal tube terminates in the right mainstem bronchus. This has since been pulled back. 3. Bilateral dense consolidation within the lungs as described above. This favors a multifocal pneumonia. 4. Trace bilateral pleural effusions. 5. Multiple bilateral acute anterior rib fractures and a mid sternal fracture. No pneumothorax. 6. Nondisplaced left humeral neck fracture. 7. Interlobular septal thickening within the lungs likely represents pulmonary edema. 8. A few subcentimeter indeterminate nodules. Six-month chest CT follow-up is recommended to ensure stability. CHEST ONE VIEW PORTABLE CLINICAL HISTORY: Cardiac arrest. Intubation. COMPARISON STUDY: Chest radiograph and chest CT April 07, 2017. FINDINGS: The tip of the endotracheal tube is 4.2 cm above the shilpi. Tip of nasogastric tube is below lower aspect of this image but at least within the proximal stomach. There is no pneumothorax. Small bilateral pleural effusions persist. Dense bibasilar consolidation persist. There is mild pulmonary edema. Patient is rotated. Right lower lobe volume loss is noted. Cardiomegaly is unchanged. There are multiple acute bilateral rib fractures. IMPRESSION: 1. Satisfactory positioning of the endotracheal tube. 2. Dense bilateral airspace opacities suggestive of pneumonia. 3. Multiple acute bilateral rib fractures with no pneumothorax. 4. Interstitial thickening consistent with superimposed pulmonary edema. (Sigrid Nava ., PA-C) Assessment and Plan 81 y/o male with a history of ESRD on HD, recent fall with ?left proximal humeral fracture, ankylosing spondylitis, DM II, HTN, HLD, mesenteric ischemia, chronic post-prandial diarrhea, and anemia of chronic disease who presents to the ED on 04/06 with worsening shortness of breath. The patient had a recent fall on 04/01 and has had significant pain as a result, causing him to miss his last 2 dialysis treatments. CXR shows RLL pneumonia. V-tach/v-fib, CODE BLUE--resolved -Pt had a code blue around 2100 on 04/07. Runs of VT and VF, shocked 4 times. Pt intubated, transferred to ICU and placed on code arctic. Management per ICU -Amiodarone drip -Most recent EKG shows sinus rhythm with PACs, LAFB and RBBB -Troponin initially stable following code, but elevated to 14.9 on 04/08 -Head CT shows no acute disease -CXR shows bilateral opacities consistent with PNA, multiple rib fractures and pulmonary edema -CTA chest shows consolidations bilaterally consistent with multifocal PNA. Multiple rib fractures and mid sternal fracture. Left humeral neck fracture. Evidence of pulmonary edema -Neuro consulted due to code arctic -EEG--abnormal due to background disorganization and slowing. No evidence of seizure or epileptiform discharges -Weaned off sedation RLL HCAP, acute respiratory failure--worsening -Admit to telemetry. Transferred to ICU 04/07. Intubated. -Blood cultures pending. Pt received 1 dose of Levaquin prior -D/C Levaquin due to long QT -Continue IV Vancomycin and Zosyn for HCAP coverage -Started doxycycline 100 mg IV BID -Leukocytosis worsening. 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 No prior tests to compare, unknown if chronically elevated. Pt does complain of CP but seems mostly MSK due to recent fall/bruising -Troponin trending up as above -Repeat EKG 04/07 shows 103 bpm, sinus tachycardia with occasional PVC -Consult cardiology, appreciate recs Acute on chronic anemia of chronic disease--ongoing -Baseline hemoglobin 10-11 -Hgb 8.9 on admission -Recent Dieulafoy lesion found on EGD 03/22/17 in the upper stomach which was clipped -Protonix converted to IV -Repeat Hgb 7.4 on 04/08 -D/C aspirin -Continue to trend H&H, transfuse prn ESRD on HD, fluid overload--pt missed 2 dialysis treatments. Pt on schedule -Consult nephrology, appreciate recs. Pt follows with Dr. Peraza -Pt received Lasix 20 mg IV x 1 upon admission -BNP > 71569 on admission -Continue sodium bicarb 650 mg PO BIDM Recent fall, left proximal humeral fracture -Percocet held -Pt following with Dr. Javier outpt DM II--last HgbA1c on 01/25/17 was 7.4 -Lantus d/c'd -Insulin drip -Insulin sliding scale -Check BSGs q ac and qhs or q6h while NPO HTN--pt became hypotensive, is requiring pressor support -Toprol and Norvasc d/c'd -Continue pressors DVT prophylaxis -Hold chemical prophylaxis for now due to dropping Hgb -SCDs Code Status -Level I, FULL RESUSCITATION STATUS (Sigrid Nava, PA-C) Reviewed: Pt Seen/Exam by Me (Tamar Edmonds MD) History Physician Tunnel Form Placing Supervisor Supervision Note: I interviewed and examined the patient. Discussed with BISHOP Nava and agree with findings and plan as documented in the note. Any exceptions or clarifications are listed here: Pt had cardiac arrest last night shortly after I saw him. Started as PEA arrest with ST and went into VT and then VF and then VT again. He was sedated, intubated, given amiodarone, bicarb, magnesium, epi, and defibrillated 4 times, sustained CPR. Troponin trending upward to 84 now, is about to start weaning from Arctic cooling overnight. Remains off sedation and unresponsive but RN does report he has a cough response. Underwent urgent HD last night after the code for severe acidosis. Acidosis now improved. CTA chest neg for PE but does reconfirm multifocal PNA Head CT negative Now on continuous EEG Remains on pressor support with neosynephrine but is weaning off Vitals reviewed Intubated, does not respond to verbal stimuli or frankie tactile stimulus, appears ashen in color RRR 2/6 IRAJ at LLSB Lungs with crackles and decreased BS at right base, otherwise slightly diminished throughout, ET tube in place Abd +BS, soft, OGT in place Ext cold to the touch, +palpable pedal pulses 81 yo male with multiple medical problems, here with Right sided HCAP, respiratory insufficiency, and recent fall with left humerus fracture, left chest wall pain, demand ischemia, who sustained cardiac arrest with PEA, VT, VF of unknown etiology. Perhaps acute DC. Cardiology thinks not likely primary arrhythmia as cause. Appreciate ICU management in this critically ill pt -vent management as per ICU -trend trop, continue vasopressors and wean as able to, starting to warm up from hypothermia protocol -continue amiodarone gtt for previous VT, VF--> ECGs from [facility] were thought to be VT initially but Cardio review thinks sinus tach with RBBB -on heparin gtt for NSTEMI - ECHO with moderately reduced LVEF, severe , grade 2 diastolic dysfunction -continuous EEG, await to see if is neurologically intact -for PNA continue Vanc and Zosyn to cover for HCAP specifically to treat for GNR PNA and MRSA PNA, added on doxy for atypicals as Levaquin dc'd for prolonged QTc -has biliary dyskinesia and chronic diarrhea and chronic abd pain-no issues currently -Appreciate Nephrology management of HD, lytes, with hypokalemia currently but not replacing as per ICU team while rewarming -follow hgb, 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
[2017-04-08 15:57] LABS: BASO % 0.2 %; BASO ABS # 0.04 K/uL (0-0.2); EOS % 0.2 %; HEMATOCRIT 22.8 % (42-52); IG% 2.8 %; LYMPH % 6.7 %; LYMPH ABS # 1.27 K/uL (1.2-3.4); MEAN CELL VOLUME 90.8 fL (80-100); MEAN CORPUSCULAR HEMOGLOBIN 29.9 pg (25-34); MEAN CORPUSCULAR HGB CONC 32.9 g/dl (32-36); MEAN PLATELET VOLUME 11.5 fL (7.4-10.4); MONO % 3.2 %; NEUT % 86.9 %; PLATELET COUNT 155 K/uL (130-400); RED BLOOD COUNT 2.51 M/uL (4.7-6.1); WHITE BLOOD COUNT 19.09 K/uL (4.8-10.8)
[2017-04-08 16:06] LABS: INR 1.4 (0.9-1.1); PARTIAL THROMBOPLASTIN RATIO 1.5; PROTHROMBIN TIME (PATIENT) 14.7 SECONDS (9.0-12.0)
[2017-04-08 16:30] LABS: COMPLETE YES
[2017-04-08 16:32] LABS: ISTAT ARTERIAL BLOOD GAS HCO3 25 meq/L (19-24); ISTAT ARTERIAL BLOOD GAS PCO2 52 mmHg (35-46); ISTAT ARTERIAL BLOOD GAS PO2 144 mmHg (80-95); ISTAT ARTERIAL BLOOD GAS pH 7.28 (7.35-7.45); ISTAT CARBON DIOXIDE 26 mEq/l (24-31); ISTAT DELIVERY SYSTEM Ventilator; ISTAT FIO2 100 %; ISTAT PEEP 15; ISTAT RATE 26; ISTAT SITE Art Line; VE 11.5; Vt 500
[2017-04-08 16:39] LABS: BUN/CREATININE RATIO 9.2 (10-20); CREATININE 6.3 mg/dl (0.60-1.40); MAGNESIUM 2.5 mg/dl (1.8-2.4); PHOSPHORUS 5.9 mg/dl (2.5-4.9); POTASSIUM 3.4 mmol/L (3.5-5.1)
[2017-04-08] MEDS: PHENYLEPHRINE HCL INJ 80 MG in DEXTROSE 5% 500ML 500 ML IV PRN ×2 (17:10→23:14)
[2017-04-08] MEDS ORDERED: HEPARIN IV LOW DOSE NO BOLUS SCH (17:15)
[2017-04-08] MEDS: HEPARIN 25,000 UNIT/500ML D5W 500 ML IV PRN (18:21)
--- NOTE | 2017-04-08 19:19 | Cardiology Follow-Up ---
Subjective Date of Service: Apr 08, 2017. Pt evaluation today including: physical exam, conversation w/ medical economics consultant, conversation w/ attending History of Present Illness The patient was evaluated yesterday afternoon for symptoms of dyspnea and chest discomfort. At that time his symptoms were quite minimal. Later in the evening he did suffer what has been described as a PEA arrest. It seems the patient became unresponsive in the initial rhythm was sinus tachycardia. He later developed ventricular arrhythmias and did require cardioversion reportedly on 2 occasions. The patient underwent intubation, mechanical ventilation and eventually urgent dialysis due to acidosis. He continues to be intubated and sedated at this time. Social History Smoking Status: Current Every Day Smoker History of Alcohol Use: No Review of Systems Patient continues to have episodes of diarrhea, reporting 4 episodes over the course of his admission so far. He does have an element of anorexia. He denies current abdominal discomfort. No dysphagia or odynophagia. He does report some difficulty with dialysis due to numbness tingling and pain in the left hand with use of his left arm fistula. Objective Vital Signs Past 12 Hours Date Time Temp Pulse Resp B/P (MAP) Pulse Ox O2 Delivery O2 Flow Rate FiO2 04/08/17 19:00 Mechanical Ventilator 80 04/08/17 18:00 Mechanical Ventilator 80 04/08/17 18:00 34.9 67 26 110/53 (72) 100 Mechanical Ventilator 80 122/36 (64) 04/08/17 17:07 80 04/08/17 17:00 Mechanical Ventilator 80 04/08/17 17:00 35.1 62 26 99/53 (68) 100 Mechanical Ventilator 80 100/36 (57) 04/08/17 16:00 100 04/08/17 16:00 35.1 64 26 110/59 (76) 100 Mechanical Ventilator 100 110/42 (64) 04/08/17 16:00 Mechanical Ventilator 04/08/17 16:00 Mechanical Ventilator 100 04/08/17 15:00 35.1 64 26 129/62 (84) 100 Mechanical Ventilator 100 118/45 (69) 04/08/17 14:34 35.1 04/08/17 14:16 100 04/08/17 14:00 35.1 63 26 116/61 (79) 99 Mechanical Ventilator 100 112/47 (68) 04/08/17 13:15 35.1 04/08/17 13:00 35.1 63 26 118/61 (80) 100 Mechanical Ventilator 100 117/44 (68) 04/08/17 13:00 35.1 04/08/17 12:45 35.1 04/08/17 12:00 100 04/08/17 12:00 100 Mechanical Ventilator 100 04/08/17 12:00 35.1 61 26 110/64 (79) 100 Mechanical Ventilator 100 110/40 (63) 04/08/17 11:45 35.1 04/08/17 11:32 100 04/08/17 11:30 35.1 04/08/17 11:15 35.1 04/08/17 11:00 35.1 04/08/17 11:00 35.1 62 26 109/56 (73) 99 Mechanical Ventilator 100 105/39 (61) 04/08/17 10:45 35.1 04/08/17 10:15 35.1 04/08/17 10:00 35.1 63 26 113/63 (80) 97 Mechanical Ventilator 100 104/39 (60) 04/08/17 09:45 35.1 04/08/17 09:30 35.1 04/08/17 09:15 35.1 04/08/17 09:00 35.1 65 26 109/60 (76) 95 Mechanical Ventilator 100 106/42 (63) 04/08/17 08:45 35.1 04/08/17 08:30 35.1 04/08/17 08:15 35.1 04/08/17 08:00 35.1 65 26 108/59 (75) 92 Mechanical Ventilator 100 107/42 (63) 04/08/17 08:00 35.1 04/08/17 08:00 100 04/08/17 08:00 Mechanical Ventilator 100 04/08/17 08:00 92 Mechanical Ventilator 100 04/08/17 07:34 100 04/08/17 07:34 66 26 92 Mechanical Ventilator 100 Last Recorded Weight-Kilograms: 103.100 Intake & Output 8-Hour Column 04/08/17 04/09/17 04/09/17 16:00 00:00 08:00 Intake Total 3305 ml Output Total 0 ml 0 ml Balance 3305 ml 0 ml 24-Hour Column 04/09/17 08:00 Intake Total 3305 ml Output Total 0 ml Balance 3305 ml Physical Exam Intubated and sedated Auscultation of the lung apices reveals upper airway sounds Heart tones are distant, without notable systolic murmur Extremities are cool to the touch, there is evidence of peripheral edema Data Laboratory Results: Last 24 Hours Test 04/07/17 20:11 04/07/17 21:30 04/07/17 21:40 04/07/17 21:42 Bedside Glucose 213 mg/dl Bedside Hemoglobin 8.8 g/dl Bedside Hematocrit 26 % Bedside Blood Gas pH (LAB) 6.97 Bedside Blood Gas pCO2 (LAB) 47 mmHg Bedside Blood Gas pO2 (LAB) 82 mmHg Bedside Blood Gas HCO3 (LAB) 11 meq/L Bedside Blood Gas Total CO2 12 mEq/l Bedside Blood Gas Base Excess (LAB) -21.0 meq/L Bedside Blood Gas O2 Saturation 87.0 % Bedside Sodium 131 mEq/L Bedside Potassium 4.0 mEq/L White Blood Count 15.33 K/uL Red Blood Count 2.66 M/uL Hemoglobin 8.0 g/dL Hematocrit 25.0 % Mean Corpuscular Volume 94.0 fL Mean Corpuscular Hemoglobin 30.1 pg Mean Corpuscular Hemoglobin Concent 32.0 g/dl Platelet Count 194 K/uL Mean Platelet Volume 12.5 fL Neutrophils (%) (Auto) 61.7 % Lymphocytes (%) (Auto) 24.2 % Monocytes (%) (Auto) 5.9 % Eosinophils (%) (Auto) 1.0 % Basophils (%) (Auto) 0.5 % Neutrophils # (Auto) 9.46 K/uL Lymphocytes # (Auto) 3.71 K/uL Monocytes # (Auto) 0.90 K/uL Eosinophils # (Auto) 0.16 K/uL Basophils # (Auto) 0.08 K/uL RDW Standard Deviation 57.3 fL RDW Coefficient of Variation 16.7 % Immature Granulocyte % (Auto) 6.7 % Immature Granulocyte # (Auto) 1.02 K/uL Nucleated RBC Absolute Count (auto) 0.13 K/uL Nucleated Red Blood Cells % 0.8 % Poikilocytosis PRESENT Schistocytes OCCASIONAL Prothrombin Time 11.2 SECONDS Prothromb Time International Ratio 1.0 Activated Partial Thromboplast Time 39.8 SECONDS Partial Thromboplastin Ratio 1.5 Sodium Level 133 mmol/L Potassium Level 3.7 mmol/L Chloride Level 99 mmol/L Carbon Dioxide Level 14 mmol/L Anion Gap 20.0 mmol/L Blood Urea Nitrogen 88 mg/dl Creatinine 9.20 mg/dl Est Creatinine Clear Calc Drug Dose 7.5 ml/min Estimated GFR () 5.6 Estimated GFR (Non- 4.9 BUN/Creatinine Ratio 9.5 Random Glucose 379 mg/dl Calcium Level 11.1 mg/dl Total Bilirubin 0.3 mg/dl Aspartate Amino Transf (AST/SGOT) 185 U/L Alanine Aminotransferase (ALT/SGPT) 131 U/L Alkaline Phosphatase 103 U/L Troponin I 0.588 ng/ml Total Protein 6.3 gm/dl Albumin 2.1 gm/dl Globulin 4.2 gm/dl Albumin/Globulin Ratio 0.5 Beta-Hydroxybutyric Acid 12.14 mg/dL Test 04/07/17 22:37 04/07/17 22:40 04/07/17 22:50 04/07/17 23:10 Bedside Hemoglobin 7.8 g/dl Bedside Hematocrit 23 % Bedside Blood Gas pH (LAB) 7.04 Bedside Blood Gas pCO2 (LAB) 61 mmHg Bedside Blood Gas pO2 (LAB) 56 mmHg Bedside Blood Gas HCO3 (LAB) 17 meq/L Bedside Blood Gas Total CO2 18 mEq/l Bedside Blood Gas Base Excess (LAB) -14.0 meq/L Bedside Blood Gas O2 Saturation 73.0 % Bedside Sodium 137 mEq/L Bedside Potassium 3.6 mEq/L White Blood Count 22.99 K/uL Red Blood Count 2.62 M/uL Hemoglobin 7.8 g/dL Hematocrit 24.4 % Mean Corpuscular Volume 93.1 fL Mean Corpuscular Hemoglobin 29.8 pg Mean Corpuscular Hemoglobin Concent 32.0 g/dl Platelet Count 280 K/uL Mean Platelet Volume 11.5 fL Neutrophils (%) (Auto) 85.6 % Lymphocytes (%) (Auto) 5.2 % Monocytes (%) (Auto) 3.6 % Eosinophils (%) (Auto) 0.6 % Basophils (%) (Auto) 0.3 % Neutrophils # (Auto) 19.68 K/uL Lymphocytes # (Auto) 1.20 K/uL Monocytes # (Auto) 0.83 K/uL Eosinophils # (Auto) 0.13 K/uL Basophils # (Auto) 0.06 K/uL RDW Standard Deviation 56.2 fL RDW Coefficient of Variation 16.5 % Immature Granulocyte % (Auto) 4.7 % Immature Granulocyte # (Auto) 1.09 K/uL Nucleated RBC Absolute Count (auto) 0.04 K/uL Nucleated Red Blood Cells % 0.2 % Polychromasia 1+ Echinocytes 1+ Sodium Level 137 mmol/L Potassium Level 4.0 mmol/L Chloride Level 100 mmol/L Carbon Dioxide Level 18 mmol/L Anion Gap 19.0 mmol/L Blood Urea Nitrogen 84 mg/dl Creatinine 8.70 mg/dl Est Creatinine Clear Calc Drug Dose 8.0 ml/min Estimated GFR () 6.0 Estimated GFR (Non- 5.2 BUN/Creatinine Ratio 9.7 Random Glucose 345 mg/dl Lactic Acid Level 9.0 mmol/L Calcium Level 9.5 mg/dl Phosphorus Level 9.0 mg/dl Magnesium Level 3.3 mg/dl Total Bilirubin 0.5 mg/dl Direct Bilirubin 0.2 mg/dl Aspartate Amino Transf (AST/SGOT) 250 U/L Alanine Aminotransferase (ALT/SGPT) 162 U/L Alkaline Phosphatase 115 U/L Total Protein 6.1 gm/dl Albumin 2.0 gm/dl Beta-Hydroxybutyric Acid 7.67 mg/dL Procalcitonin 0.65 ng/ml Random Cortisol 49.33 mcg/dl Creatine Kinase MB Ratio Creatine Kinase MB 7.1 ng/ml Troponin I 0.805 ng/ml Test 04/08/17 01:44 04/08/17 02:43 04/08/17 03:33 04/08/17 04:00 Bedside Glucose (other) 223 mg/dl 193 mg/dl 176 mg/dl Arterial Blood pH 7.21 Arterial Blood Partial Pressure CO2 60 mmHg Arterial Blood Partial Pressure O2 69 mm/Hg Arterial Blood HCO3 23 mmol/L Arterial Blood Oxygen Saturation 88.0 % Arterial Blood Base Excess -4.6 mEq/L Arterial Blood Gas Delivery 100% Raciel Test POS Test 04/08/17 04:01 04/08/17 04:14 04/08/17 05:34 04/08/17 06:30 White Blood Count 22.53 K/uL Red Blood Count 2.62 M/uL Hemoglobin 7.8 g/dL Hematocrit 23.9 % Mean Corpuscular Volume 91.2 fL Mean Corpuscular Hemoglobin 29.8 pg Mean Corpuscular Hemoglobin Concent 32.6 g/dl Platelet Count 221 K/uL Mean Platelet Volume 11.3 fL RDW Standard Deviation 55.1 fL RDW Coefficient of Variation 16.5 % Nucleated RBC Absolute Count (auto) 0.03 K/uL Neutrophils % (Manual) 93.9 % Lymphocytes % (Manual) 0.0 % Monocytes % (Manual) 6.1 % Nucleated Red Blood Cells % 0.1 % Neutrophils # (Manual) 21.16 K/uL Total Absolute Neutrophils 21.16 K/uL Total Absolute Lymphocytes 0.00 K/uL Monocytes # (Manual) 1.37 K/uL Basophilic Stippling 1+ Prothrombin Time 12.2 SECONDS Prothromb Time International Ratio 1.1 Activated Partial Thromboplast Time 39.0 SECONDS Partial Thromboplastin Ratio 1.5 Sodium Level 136 mmol/L Potassium Level 3.8 mmol/L Chloride Level 100 mmol/L Carbon Dioxide Level 25 mmol/L Anion Gap 11.0 mmol/L Blood Urea Nitrogen 53 mg/dl Creatinine 5.50 mg/dl Est Creatinine Clear Calc Drug Dose 12.9 ml/min Estimated GFR () 10.5 Estimated GFR (Non- 9.1 BUN/Creatinine Ratio 9.7 Random Glucose 239 mg/dl Calcium Level 7.7 mg/dl Phosphorus Level 5.2 mg/dl Magnesium Level 2.5 mg/dl Total Creatine Kinase 589 U/L Creatine Kinase MB 48.1 ng/ml Creatine Kinase MB Ratio 8.2 Troponin I 14.900 ng/ml Random Vancomycin Level < 0.8 mcg/ml Bedside Hemoglobin 7.8 g/dl Bedside Hematocrit 23 % Bedside Blood Gas pH (LAB) 7.22 Bedside Blood Gas pCO2 (LAB) 59 mmHg Bedside Blood Gas pO2 (LAB) 65 mmHg Bedside Blood Gas HCO3 (LAB) 24 meq/L Bedside Blood Gas Total CO2 26 mEq/l Bedside Blood Gas Base Excess (LAB) -4.0 meq/L Bedside Blood Gas O2 Saturation 87.0 % Bedside Sodium 135 mEq/L Bedside Potassium 3.7 mEq/L Bedside Glucose (other) 254 mg/dl 250 mg/dl Test 04/08/17 07:39 04/08/17 08:05 04/08/17 08:38 04/08/17 08:49 Bedside Glucose (other) 256 mg/dl 272 mg/dl Blood Gas Sample Site Art Line Bedside Blood Gas pH (LAB) 7.27 Bedside Blood Gas pCO2 (LAB) 47 mmHg Bedside Blood Gas pO2 (LAB) 55 mmHg Bedside Blood Gas HCO3 (LAB) 22 meq/L Bedside Blood Gas Total CO2 23 mEq/l Bedside Blood Gas Base Excess (LAB) -5.0 meq/L Bedside Blood Gas O2 Saturation 87.0 % Raciel Test NA Oxygen Delivery Device Ventilator Bedside Oxygen Rate (breaths/min) 26 Blood Gas Minute Ventilation 12.5 Bedside FiO2 100 % Blood Gas Tidal Volume 500 Blood Gas PEEP 12 White Blood Count 19.34 K/uL Red Blood Count 2.53 M/uL Hemoglobin 7.7 g/dL Hematocrit 23.1 % Mean Corpuscular Volume 91.3 fL Mean Corpuscular Hemoglobin 30.4 pg Mean Corpuscular Hemoglobin Concent 33.3 g/dl Platelet Count 165 K/uL Mean Platelet Volume 10.9 fL Neutrophils (%) (Auto) 90.3 % Lymphocytes (%) (Auto) 3.3 % Monocytes (%) (Auto) 3.9 % Eosinophils (%) (Auto) 0.0 % Basophils (%) (Auto) 0.1 % Neutrophils # (Auto) 17.46 K/uL Lymphocytes # (Auto) 0.63 K/uL Monocytes # (Auto) 0.76 K/uL Eosinophils # (Auto) 0.00 K/uL Basophils # (Auto) 0.02 K/uL RDW Standard Deviation 55.3 fL RDW Coefficient of Variation 16.7 % Immature Granulocyte % (Auto) 2.4 % Immature Granulocyte # (Auto) 0.47 K/uL Basophilic Stippling 1+ Echinocytes 1+ Prothrombin Time 13.7 SECONDS Prothromb Time International Ratio 1.3 Activated Partial Thromboplast Time 41.5 SECONDS Partial Thromboplastin Ratio 1.6 Sodium Level 133 mmol/L Potassium Level 3.9 mmol/L Chloride Level 97 mmol/L Carbon Dioxide Level 22 mmol/L Anion Gap 14.0 mmol/L Blood Urea Nitrogen 54 mg/dl Creatinine 5.90 mg/dl Est Creatinine Clear Calc Drug Dose 12.0 ml/min Estimated GFR () 9.7 Estimated GFR (Non- 8.3 BUN/Creatinine Ratio 9.2 Random Glucose 274 mg/dl Calcium Level 8.3 mg/dl Phosphorus Level 5.8 mg/dl Magnesium Level 2.6 mg/dl Test 04/08/17 10:06 04/08/17 11:04 04/08/17 11:47 04/08/17 11:55 Bedside Glucose (other) 271 mg/dl 264 mg/dl 254 mg/dl White Blood Count 19.07 K/uL Red Blood Count 2.53 M/uL Hemoglobin 7.4 g/dL Hematocrit 23.1 % Mean Corpuscular Volume 91.3 fL Mean Corpuscular Hemoglobin 29.2 pg Mean Corpuscular Hemoglobin Concent 32.0 g/dl Platelet Count 162 K/uL Mean Platelet Volume 11.5 fL Neutrophils (%) (Auto) 89.5 % Lymphocytes (%) (Auto) 4.4 % Monocytes (%) (Auto) 3.2 % Eosinophils (%) (Auto) 0.1 % Basophils (%) (Auto) 0.2 % Neutrophils # (Auto) 17.09 K/uL Lymphocytes # (Auto) 0.84 K/uL Monocytes # (Auto) 0.61 K/uL Eosinophils # (Auto) 0.01 K/uL Basophils # (Auto) 0.03 K/uL RDW Standard Deviation 55.9 fL RDW Coefficient of Variation 16.5 % Immature Granulocyte % (Auto) 2.6 % Immature Granulocyte # (Auto) 0.49 K/uL Toxic Vacuolation 1+ Basophilic Stippling 1+ Prothrombin Time 14.3 SECONDS Prothromb Time International Ratio 1.3 Activated Partial Thromboplast Time 41.1 SECONDS Partial Thromboplastin Ratio 1.6 Sodium Level 134 mmol/L Potassium Level 3.4 mmol/L Chloride Level 98 mmol/L Carbon Dioxide Level 22 mmol/L Anion Gap 14.0 mmol/L Blood Urea Nitrogen 53 mg/dl Creatinine 5.80 mg/dl Est Creatinine Clear Calc Drug Dose 12.2 ml/min Estimated GFR () 9.9 Estimated GFR (Non- 8.5 BUN/Creatinine Ratio 9.3 Random Glucose 244 mg/dl Calcium Level 7.9 mg/dl Phosphorus Level 5.4 mg/dl Magnesium Level 2.4 mg/dl Test 04/08/17 12:13 04/08/17 13:14 04/08/17 14:07 04/08/17 14:57 Blood Gas Sample Site Art Line Bedside Blood Gas pH (LAB) 7.29 Bedside Blood Gas pCO2 (LAB) 46 mmHg Bedside Blood Gas pO2 (LAB) 77 mmHg Bedside Blood Gas HCO3 (LAB) 23 meq/L Bedside Blood Gas Total CO2 24 mEq/l Bedside Blood Gas Base Excess (LAB) -4.0 meq/L Bedside Blood Gas O2 Saturation 95.0 % Raciel Test NA Oxygen Delivery Device Ventilator Bedside Oxygen Rate (breaths/min) 26 Blood Gas Minute Ventilation 11.9 Bedside FiO2 100 % Blood Gas Tidal Volume 500 Blood Gas PEEP 15 Bedside Glucose (other) 246 mg/dl 235 mg/dl 230 mg/dl Test 04/08/17 15:47 04/08/17 15:50 04/08/17 16:18 04/08/17 17:19 White Blood Count 19.09 K/uL Red Blood Count 2.51 M/uL Hemoglobin 7.5 g/dL Hematocrit 22.8 % Mean Corpuscular Volume 90.8 fL Mean Corpuscular Hemoglobin 29.9 pg Mean Corpuscular Hemoglobin Concent 32.9 g/dl Platelet Count 155 K/uL Mean Platelet Volume 11.5 fL Neutrophils (%) (Auto) 86.9 % Lymphocytes (%) (Auto) 6.7 % Monocytes (%) (Auto) 3.2 % Eosinophils (%) (Auto) 0.2 % Basophils (%) (Auto) 0.2 % Neutrophils # (Auto) 16.61 K/uL Lymphocytes # (Auto) 1.27 K/uL Monocytes # (Auto) 0.61 K/uL Eosinophils # (Auto) 0.03 K/uL Basophils # (Auto) 0.04 K/uL RDW Standard Deviation 54.5 fL RDW Coefficient of Variation 16.4 % Immature Granulocyte % (Auto) 2.8 % Immature Granulocyte # (Auto) 0.53 K/uL Basophilic Stippling 1+ Prothrombin Time 14.7 SECONDS Prothromb Time International Ratio 1.4 Activated Partial Thromboplast Time 39.2 SECONDS Partial Thromboplastin Ratio 1.5 Sodium Level 132 mmol/L Potassium Level 3.4 mmol/L Chloride Level 95 mmol/L Carbon Dioxide Level 24 mmol/L Anion Gap 13.0 mmol/L Blood Urea Nitrogen 58 mg/dl Creatinine 6.30 mg/dl Est Creatinine Clear Calc Drug Dose 11.3 ml/min Estimated GFR () 8.9 Estimated GFR (Non- 7.7 BUN/Creatinine Ratio 9.2 Random Glucose 220 mg/dl Calcium Level 8.0 mg/dl Phosphorus Level 5.9 mg/dl Magnesium Level 2.5 mg/dl Troponin I 84.300 ng/ml Bedside Glucose (other) 223 mg/dl 203 mg/dl Blood Gas Sample Site Art Line Bedside Blood Gas pH (LAB) 7.28 Bedside Blood Gas pCO2 (LAB) 52 mmHg Bedside Blood Gas pO2 (LAB) 144 mmHg Bedside Blood Gas HCO3 (LAB) 25 meq/L Bedside Blood Gas Total CO2 26 mEq/l Bedside Blood Gas Base Excess (LAB) -2.0 meq/L Bedside Blood Gas O2 Saturation 99.0 % Raciel Test NA Oxygen Delivery Device Ventilator Bedside Oxygen Rate (breaths/min) 26 Blood Gas Minute Ventilation 11.5 Bedside FiO2 100 % Blood Gas Tidal Volume 500 Blood Gas PEEP 15 Test 04/08/17 17:59 Bedside Glucose (other) 186 mg/dl Imaging: CT scan was reviewed. No evidence of pulmonary embolus. There is consolidation in both lungs. There is a left humeral fracture and rib fractures EKG: Multiple EKGs were reviewed. Some reveal a sinus tachycardia, others reveal what appears to be an atrial arrhythmia with widening of the QRS. There also appears to have been interim development of a right bundle branch block. Telemetry reviewed: 1 episode of R on T phenomena with resultant polymorphic VT Echocardiogram demonstrated severely reduced LV systolic function with an element of aortic and mitral valve disease Assessment and Plan 1. PA arrest: The events surrounding the patient's decompensation and the etiology of his arrest are unclear. It seems that the initial rhythm was a sinus tachycardia. He did eventually developed ventricular arrhythmias which required therapy. He has since been initiated on an amiodarone infusion. His electrolytes appear to be normal. His acidosis has improved. At this point supportive efforts are the main therapy. I think we can continue the amiodarone currently. He will continue to have close monitoring of his acid- base status and electrolytes. 2. Decompensated left ventricular failure: Patient appeared to have an element of pulmonary congestion on his CT scan. He does have reduced LV systolic function. He requires dialysis for adequate volume loss, and this has been arranged. 3. Left ventricular systolic failure: The chronicity of his LV dysfunction is unclear. Whether this is related to the rest and subsequent acidosis is not clear. However, adequate diuresis and maintaining of an appropriate dry weight would the be advisable while his medical regimen is adjusted. He undoubtedly has an element of coronary disease. He previously did not have symptoms associated with coronary disease such as angina or chest pain. At some point prior to discharge she will likely require an evaluation of his coronary arteries. But he is currently requiring pressor support, and there is no role at this time for beta-blockade or John inhibition. 4. Elevated troponin: Patient clearly had an ischemic event over the course of the evening. The mechanism is unclear. EKG did not suggest acute injury, but he undoubtedly had an element of injury likely due to a period of hypoxia and hypotension. He has been started on heparin infusion. He does have a history of gastrointestinal bleeding and will need to be monitored closely for bleeding. I would have a low threshold for discontinuation of the heparin. 5. Valvular heart disease: Patient was reported to have severe aortic stenosis. There is no significant murmur on examination. He may have a lesser degree of aortic stenosis the. Doubt that this played a role in his decompensation but must be monitored closely. Certainly no role at this time for any intervention. 5. Abnormal EKG: The patient is currently in a sinus rhythm. QRS morphology is slightly different than his baseline. The duration is much longer and has developed an interim right bundle branch block. This may have been related to an element of ischemia. Certainly in the acute setting electrolyte abnormalities or acidosis may have produce some changes. Electrolytes are currently normal and his acidosis has been resolved but he continues to have these EKG changes. He had a slightly prolonged QT interval previously, and he did have an episode of R on T phenomenon once transferred to the ICU. Do not believe that he had a primary arrhythmia resulting in his initial arrest. With amiodarone infusion we may see some longer QT intervals. This is not appear to have the same risk for torsades as other causes of long QT. Levaquin has been stopped.
[2017-04-08 20:14] LABS: BASO % 0.3 %; BASO ABS # 0.06 K/uL (0-0.2); EOS % 0.4 %; HEMATOCRIT 22.8 % (42-52); IG% 4.1 %; LYMPH ABS # 1.24 K/uL (1.2-3.4); MEAN CELL VOLUME 89.8 fL (80-100); MEAN CORPUSCULAR HEMOGLOBIN 30.3 pg (25-34); MEAN CORPUSCULAR HGB CONC 33.8 g/dl (32-36); MEAN PLATELET VOLUME 11.4 fL (7.4-10.4); NEUT % 85.2 %; PLATELET COUNT 151 K/uL (130-400); RED BLOOD COUNT 2.54 M/uL (4.7-6.1); WHITE BLOOD COUNT 17.69 K/uL (4.8-10.8)
[2017-04-08 20:26] LABS: ISTAT ARTERIAL BLOOD GAS HCO3 23 meq/L (19-24); ISTAT ARTERIAL BLOOD GAS PCO2 43 mmHg (35-46); ISTAT ARTERIAL BLOOD GAS PO2 85 mmHg (80-95); ISTAT ARTERIAL BLOOD GAS pH 7.33 (7.35-7.45); ISTAT CARBON DIOXIDE 25 mEq/l (24-31); ISTAT DELIVERY SYSTEM Ventilator; ISTAT FIO2 80 %; ISTAT PEEP 15; ISTAT RATE 26; ISTAT SITE Art Line; VE 12.1; Vt 500
[2017-04-08 20:27] LABS: INR 1.4 (0.9-1.1); PARTIAL THROMBOPLASTIN RATIO 1.6; PROTHROMBIN TIME (PATIENT) 14.7 SECONDS (9.0-12.0)
[2017-04-08 20:35] LABS: COMPLETE YES
[2017-04-08 20:52] LABS: BUN/CREATININE RATIO 9.2 (10-20); CALCIUM 8.3 mg/dl (8.5-10.1); CREATININE 6.3 mg/dl (0.60-1.40); MAGNESIUM 2.3 mg/dl (1.8-2.4); PHOSPHORUS 5.9 mg/dl (2.5-4.9); POTASSIUM 3.3 mmol/L (3.5-5.1)
--- NOTE | 2017-04-08 21:33 | Critical Care Progress Note ---
Critical Care Progress Note Date of Service Apr 08, 2017. ICU Day ICU Day Number: [address] Weller Subjective Patient is a 81-year-old male who was admitted to the ICU last night after having a witnessed cardiac arrest. Successful ROSC was achieved and the patient was subsequently transported to the ICU for CODE ARCTIC protocol and aggressive ventilatory techniques. Continuous EEG is currently being performed. Patient unable to contribute to history of present illness secondary to intubated and sedated state. Objective VITAL SIGNS - Vital signs and nursing notes were reviewed. GENERAL - 81-year-old male. Intubated and sedated. EYES - Fixed and very sluggish. EARS - No deformities of external structures noted on gross examination bilaterally. NOSE - Midline and without cyanosis. MOUTH/OROPHARYNX - ET Tube in place. NECK - Supple to palpation. LUNGS - Chest wall symmetric without accessory muscle use, intercostals retractions, or central cyanosis. Decreased breath sounds at the bases bilaterally. CARDIAC - RRR with S1/S2. No murmur, rubs, or gallops appreciated. ABDOMEN - Abdominal contour obese without pulsations or visible masses. BS hypoactive all four quadrants. No palpable masses, hepatosplenomegaly, or ascites noted. NEUROLOGIC - Intubated and Sedated. RASS -5 Current SOFA Score SOFA Score Response (Comments) Value PaO2/FiO2 (mmHg) < 100 4 Platelets (x10) > 150 0 Bilirubin (mg/dL) < 1.2 0 [place] Coma Score < 6 4 Level of Hypotension Dopamine > 5 mcq or Epi < 0.1 mcq 3 Creatinine (mg/dL) > 5.0 4 Total 15 Assessment & Plan (1) Cardiac arrest (2) Lactic acidosis (3) Respiratory failure (4) Diarrhea (5) Right lower lobe pneumonia (6) Right rib fracture (7) ESRD on hemodialysis (8) Diabetes mellitus Reason Critically Ill: 81-year-old male admitted to the ICU status post V. fib arrest with ROSC undergoing therapeutic hypothermia. Neuro - * RASS: -5 * Sedated using Fentanyl/Versed. * Will titrate off versed and decrease Fentanyl to push doses only. * Continuos EEG in place. Cardiac - * Ventricular Fibrillation Arrest with ROSC: * Currently undergoing therapeutic hypothermia - goal of 35C achieved at 0000. Will remain for 24 hours and then rewarm starting 04/09/2015 @0000. * Prolonged QTc: mildly improving. Continue to monitor. * Discontinue Levaquin - replace with Doxy. * Continue to trend troponins. * Monitor on tele. Respiratory - * Intubated: * Settings - 26/500/15/100%. * Will continue to follow [facility] protocol with HIGH PEEP and lower FiO2. * Multifocal Pneumonia: * Aggressive ventilatory techniques. * Antibiotics described below. * Respiratory Failure: * Continue to trend ABGs for successful ventilation/perfusion. GI - * NPO while cooling. * Prophylaxis - Protonix. RENAL/LYTES - * Appreciate nephrology consultation for dialysis management and electrolyte balance. * Monitor electrolytes - replace appropriately. - * [place] Catheter ENDO - * On insulin gtt 2/2 hyperglycemia. * Will continue to monitor in the setting of extreme stress. HEME - * Apparent Chronic Anemia: * Will trend. * Transfuse if necessary. ID - * Multifocal Pneumonia: * Vancomycin with Dialysis. * Zosyn * Doxycycline * Appreciate pharmacy evaluating renal dosing in this patient. LINES/IV ACCESS - * LEFT Femoral CVL * RIGHT Radial Arterial Line * HD Cath DVT PROPHYLAXIS - * Heparin 5000 U BID I have personally spent 45 minutes of critical care time in the direct management of this patient. This is a life/limb threatening event. This includes time spent evaluating patient, direct bedside care, chart review, placing orders, interpretation of diagnostic studies, discussion with consultants, patient, and family members, as well as other required patient management activities. This time is exclusive of all separately billable procedures, and teaching time and separate from and in addition to any other critical care service time. Thank you for this consultation allow us to be part of this patient's care. Please refer to my attending physician's documentation for any further recommendations. I have personally evaluated and examined this patient. I agree with assessment and plan of Omar Gallagher PA-C. An extensive discussion with the family, change, status to DO NOT RESUSCITATE in event of cardiac arrest. Patient has POA paperwork with doesn't mention of son and daughter who live locally. Consults & Procedures Consultants: Dr. Peraza: Nephrology Dr. Vaqzuez: Neurology Dr. Cabrera: Cardiology Procedures: RIGHT Radial Arterial Line LEFT Femoral Central Venous Line Data Medications: Current Inpatient Medications Medications (Trade) Dose Ordered Sig/Brennan Route Start Time Stop Time Status Last Admin Dose Admin Amlodipine Besylate (Norvasc Tab) 5 mg QAM PO 04/07/17 09:00 05/07/17 08:59 Future Hold 04/07/17 07:50 5 MG Diphenhydramine HCl (Benadryl Cap) 25 mg Q8H PRN PO 04/07/17 00:00 05/07/17 00:00 Future Hold Metoprolol Succinate (Toprol Xl Tab) 50 mg QPM PO 04/07/17 21:00 05/07/17 20:59 Future Hold 04/07/17 19:47 50 MG Sodium Bicarbonate (Sodium Bicarbonate Tab) 650 mg BIDM PO 04/07/17 07:30 05/07/17 07:59 04/08/17 17:09 650 MG Vitamin B Complex/ Vit C/Folic Acid (Nephrocaps) 1 cap DAILY PO 04/07/17 09:00 05/07/17 08:59 Future Hold 04/07/17 07:50 1 CAP Acetaminophen (Tylenol Tab) 650 mg Q4H PRN PO 04/07/17 00:00 05/07/17 00:00 Al Hydrox/Mg Hydrox/Simethicone (Maalox Max Susp) 15 ml Q4H PRN PO 04/07/17 00:00 05/07/17 00:00 Magnesium Hydroxide (Milk Of Magnesia Susp) 30 ml Q12H PRN PO 04/07/17 00:00 05/07/17 00:00 Cholestyramine Resin (Questran Powder Light) 4 gm BID@10,22 PO 04/07/17 22:00 05/07/17 21:59 Future Hold Vancomycin HCl (Consult) 1 ea UD PRN N/A 04/07/17 19:15 05/07/17 19:14 Piperacillin Sod/ Tazobactam Sod (Consult) 1 ea UD PRN N/A 04/07/17 19:15 05/07/17 19:14 Piperacillin Sod/ Tazobactam Sod 3.375 gm/Dextrose 115 ml @ 28.75 mls/ hr Q12H IV 04/08/17 02:00 04/15/17 01:59 04/08/17 13:44 28.75 MLS/HR Artificial Tears (Lacri-Lube Oph Oint) 1 appln Q2H PRN OPB 04/07/17 23:00 05/07/17 22:59 04/08/17 06:14 1 APPLN Midazolam HCl 250 ml @ 0 mls/hr Q0M PRN IV 04/07/17 22:50 05/07/17 22:49 04/08/17 00:19 5 MLS/HR Fentanyl Citrate 250 ml @ 0 mls/hr Q0M PRN IV 04/07/17 22:50 04/21/17 22:49 04/08/17 00:22 5 MLS/HR Buspirone HCl (BusPAR TAB) 60 mg ONE PRN NG 04/07/17 23:00 05/07/17 22:59 Ioversol (Optiray 320) 100 ml UD PRN IV 04/07/17 23:15 04/11/17 23:14 Insulin Aspart (novoLOG ASPART) [facility] 04/08/17 08:00 05/08/17 07:59 Insulin Human Regular 250 units/ Sodium Chloride 252.5 ml @ 0 mls/hr DAILY@1130 IV 04/08/17 00:15 05/08/17 00:14 04/08/17 11:46 8.9 MLS/HR Amiodarone HCL/ Dextrose 200 ml @ 16.7 mls/hr [id number] IV 04/08/17 02:30 05/08/17 02:29 04/08/17 13:45 16.7 MLS/HR Pantoprazole Sodium 40 mg/ Syringe 10 ml @ 5 mls/min DAILY@11 IV 04/08/17 11:00 05/08/17 10:59 04/08/17 09:59 5 MLS/MIN Ipratropium [place] (Atrovent Hfa Inhaler) 4 puffs QIDR INH 04/08/17 12:00 05/08/17 11:59 04/08/17 19:41 4 PUFFS Albuterol (Ventolin Hfa Inhaler) 4 puffs QIDR INH 04/08/17 12:00 05/08/17 11:59 04/08/17 19:41 4 PUFFS Miscellaneous Information (Consult Glycemic Management Pharmacy) 1 ea UD PRN N/A 04/08/17 13:45 05/08/17 13:44 Doxycycline Hyclate 100 mg/ Dextrose 110 ml @ 55 mls/hr Q12H IV 04/08/17 14:00 04/15/17 13:59 04/08/17 14:13 55 MLS/HR Phenylephrine HCl 80 mg/Dextrose 508 ml @ 0 mls/hr Q0M PRN IV 04/08/17 14:45 05/08/17 14:44 04/08/17 17:10 78 MLS/HR Heparin Sodium/ Dextrose 500 ml @ 20 mls/hr Q24H PRN IV 04/08/17 18:15 05/08/17 18:14 04/08/17 18:21 20 MLS/HR I & O: 24-Hour Column 04/09/17 08:00 Intake Total 3305 ml Output Total 0 ml Balance 3305 ml Vital Signs: Date Time Temp Pulse Resp B/P (MAP) Pulse Ox O2 Delivery O2 Flow Rate FiO2 04/08/17 20:00 Mechanical Ventilator 80 04/08/17 20:00 35.1 65 26 122/45 (70) 100 Mechanical Ventilator 80 04/08/17 20:00 80 04/08/17 20:00 Mechanical Ventilator 80 04/08/17 19:48 80 04/08/17 19:00 35.1 62 26 109/42 (64) 100 Mechanical Ventilator 04/08/17 19:00 Mechanical Ventilator 80 04/08/17 18:00 Mechanical Ventilator 80 04/08/17 18:00 34.9 67 26 110/53 (72) 100 Mechanical Ventilator 80 122/36 (64) 04/08/17 17:07 80 04/08/17 17:00 Mechanical Ventilator 80 04/08/17 17:00 35.1 62 26 99/53 (68) 100 Mechanical Ventilator 80 100/36 (57) 04/08/17 16:00 100 04/08/17 16:00 35.1 64 26 110/59 (76) 100 Mechanical Ventilator 100 110/42 (64) 04/08/17 16:00 Mechanical Ventilator 04/08/17 16:00 Mechanical Ventilator 100 04/08/17 15:00 35.1 64 26 129/62 (84) 100 Mechanical Ventilator 100 118/45 (69) 04/08/17 14:34 35.1 04/08/17 14:16 100 04/08/17 14:00 35.1 63 26 116/61 (79) 99 Mechanical Ventilator 100 112/47 (68) 04/08/17 13:15 35.1 04/08/17 13:00 35.1 63 26 118/61 (80) 100 Mechanical Ventilator 100 117/44 (68) 04/08/17 13:00 35.1 04/08/17 12:45 35.1 04/08/17 12:00 100 04/08/17 12:00 100 Mechanical Ventilator 100 04/08/17 12:00 35.1 61 26 110/64 (79) 100 Mechanical Ventilator 100 110/40 (63) 04/08/17 11:45 35.1 04/08/17 11:32 100 04/08/17 11:30 35.1 04/08/17 11:15 35.1 04/08/17 11:00 35.1 04/08/17 11:00 35.1 62 26 109/56 (73) 99 Mechanical Ventilator 100 105/39 (61) 04/08/17 10:45 35.1 04/08/17 10:15 35.1 04/08/17 10:00 35.1 63 26 113/63 (80) 97 Mechanical Ventilator 100 104/39 (60) 04/08/17 09:45 35.1 04/08/17 09:30 35.1 04/08/17 09:15 35.1 04/08/17 09:00 35.1 65 26 109/60 (76) 95 Mechanical Ventilator 100 106/42 (63) 04/08/17 08:45 35.1 04/08/17 08:30 35.1 04/08/17 08:15 35.1 04/08/17 08:00 35.1 65 26 108/59 (75) 92 Mechanical Ventilator 100 107/42 (63) 04/08/17 08:00 35.1 04/08/17 08:00 100 04/08/17 08:00 Mechanical Ventilator 100 04/08/17 08:00 92 Mechanical Ventilator 100 04/08/17 07:34 100 04/08/17 07:34 66 26 92 Mechanical Ventilator 100 04/08/17 07:00 35.2 68 26 97/54 (68) 92 Mechanical Ventilator 100 109/56 (73) 04/08/17 06:30 35.1 68 26 (62) 93 94/46 04/08/17 06:15 35.1 70 26 (71) 93 101/55 04/08/17 06:00 35.1 71 26 91/56 (68) 90 Mechanical Ventilator 100 95/53 (67) 04/08/17 06:00 35.1 70 26 91/57 (63) 91 96/54 04/08/17 05:45 35.1 71 26 (66) 91 92/52 04/08/17 05:30 35.1 72 26 (69) 89 94/55 04/08/17 05:15 35.1 74 26 (72) 90 99/56 04/08/17 05:01 35.1 75 26 91/56 (69) 92 97/54 04/08/17 05:00 35.1 76 26 96/70 (79) 91 Mechanical Ventilator 100 95/50 (65) 04/08/17 05:00 35.1 76 26 (67) 92 96/51 04/08/17 04:45 35.4 79 26 (68) 92 99/51 04/08/17 04:30 35.4 79 26 (67) 92 95/51 04/08/17 04:20 35.4 80 99/59 (72) 04/08/17 04:15 35.4 79 26 (67) 92 95/52 04/08/17 04:01 35.4 80 26 96/70 (65) 91 93/51 04/08/17 04:00 35.4 80 26 98/61 (73) 92 Mechanical Ventilator 100 96/53 (67) 04/08/17 04:00 Mechanical Ventilator 04/08/17 04:00 100 04/08/17 03:50 35.3 81 26 99/59 (66) 92 92/52 04/08/17 03:45 82 94/60 04/08/17 03:30 83 94/60 04/08/17 03:26 35.3 83 26 94/60 (61) 89 86/48 04/08/17 03:15 83 88/61 04/08/17 03:15 35.3 83 26 90/59 (77) 89 88/51 04/08/17 03:01 35.3 86 26 95/63 (68) 90 96/54 04/08/17 03:00 86 94/65 04/08/17 03:00 35.3 86 26 95/63 (74) 90 Mechanical Ventilator 100 94/51 (65) 04/08/17 02:46 35.2 86 26 96/56 (65) 90 95/51 04/08/17 02:45 88 101/58 04/08/17 02:31 35.2 91 26 100/62 (74) 87 105/57 04/08/17 02:30 90 101/64 04/08/17 02:17 100 04/08/17 02:16 35.2 90 26 102/63 (68) 88 101/53 04/08/17 02:15 91 100/62 04/08/17 02:11 35.2 92 26 100/62 (74) 88 106/58 04/08/17 02:06 35.2 94 26 116/64 (76) 88 107/59 04/08/17 02:01 35.2 90 26 100/66 (75) 88 107/58 04/08/17 02:00 35.2 94 26 100/57 (71) 87 Mechanical Ventilator 100 103/53 (70) 04/08/17 02:00 95 100/57 04/08/17 01:56 35.1 88 26 100/57 (66) 87 99/51 04/08/17 01:54 127 110/72 04/08/17 01:51 35.1 87 26 91/63 (70) 88 105/54 04/08/17 01:51 101 99/60 04/08/17 01:50 115 96/73 04/08/17 01:46 35.1 87 26 105/54 (64) 88 110/47 04/08/17 01:45 97 91/65 04/08/17 01:41 35.1 88 26 91/65 (71) 88 106/54 04/08/17 01:36 35.1 87 26 99/58 (65) 91 114/47 04/08/17 01:30 95 88/65 04/08/17 01:30 35.1 97 26 117/70 (75) 97 114/50 04/08/17 01:21 35.1 97 26 109/63 (76) 86 110/58 04/08/17 01:16 35.1 95 26 103/69 (77) 88 112/59 04/08/17 01:15 95 109/63 04/08/17 01:10 35.1 96 26 106/65 (72) 92 115/59 04/08/17 01:05 35.1 95 26 111/66 (87) 97 121/62 04/08/17 01:01 35.0 98 104/63 (77) 04/08/17 01:00 35.1 95 26 93/63 (67) 100 106/56 04/08/17 01:00 35.1 97 26 98/60 (73) 100 Mechanical Ventilator 100 111/56 (74) 04/08/17 01:00 96 106/65 04/08/17 00:55 35.3 96 26 98/60 (84) 73 113/61 04/08/17 00:53 98 104/63 04/08/17 00:50 35.3 98 26 104/63 (81) 74 112/58 04/08/17 00:45 98 103/62 04/08/17 00:45 35.3 98 26 103/62 (81) 74 112/58 04/08/17 00:40 35.3 100 26 102/63 (83) 76 110/59 04/08/17 00:35 35.3 102 26 102/63 (78) 74 111/59 04/08/17 00:30 35.3 102 26 108/66 (77) 74 117/62 04/08/17 00:25 35.3 106 26 112/65 (82) 70 118/63 04/08/17 00:21 35.3 107 26 104/78 (81) 116/63 04/08/17 00:16 35.3 109 26 110/78 (80) 120/59 04/08/17 00:15 35.3 109 26 (82) 122/61 04/08/17 00:01 35.3 109 26 114/59 (77) 74 Mechanical Ventilator 100 122/63 (82) 04/08/17 00:01 Mechanical Ventilator 04/08/17 00:01 100 04/08/17 00:00 99 26 100/62 (75) 04/07/17 23:58 99 26 96/48 (64) 04/07/17 23:15 106 26 108/64 (79) 04/07/17 23:00 101 26 99/60 (73) 04/07/17 22:52 107 26 106/49 (68) 04/07/17 22:45 113 26 96/73 (81) 04/07/17 22:30 124 20 106/73 (84) 04/07/17 22:19 100 04/07/17 22:16 126 20 108/49 (68) 04/07/17 22:15 126 20 108/48 (68) 04/07/17 22:01 137 142/86 (104) 92 04/07/17 22:00 36.5 137 20 142/89 (106) 92 Mechanical Ventilator 100 Laboratory Results: Last 24 Hours Test 04/07/17 21:30 04/07/17 21:40 04/07/17 21:42 04/07/17 22:37 Bedside Hemoglobin 8.8 g/dl 7.8 g/dl Bedside Hematocrit 26 % 23 % Bedside Blood Gas pH (LAB) 6.97 7.04 Bedside Blood Gas pCO2 (LAB) 47 mmHg 61 mmHg Bedside Blood Gas pO2 (LAB) 82 mmHg 56 mmHg Bedside Blood Gas HCO3 (LAB) 11 meq/L 17 meq/L Bedside Blood Gas Total CO2 12 mEq/l 18 mEq/l Bedside Blood Gas Base Excess (LAB) -21.0 meq/L -14.0 meq/L Bedside Blood Gas O2 Saturation 87.0 % 73.0 % Bedside Sodium 131 mEq/L 137 mEq/L Bedside Potassium 4.0 mEq/L 3.6 mEq/L White Blood Count 15.33 K/uL Red Blood Count 2.66 M/uL Hemoglobin 8.0 g/dL Hematocrit 25.0 % Mean Corpuscular Volume 94.0 fL Mean Corpuscular Hemoglobin 30.1 pg Mean Corpuscular Hemoglobin Concent 32.0 g/dl Platelet Count 194 K/uL Mean Platelet Volume 12.5 fL Neutrophils (%) (Auto) 61.7 % Lymphocytes (%) (Auto) 24.2 % Monocytes (%) (Auto) 5.9 % Eosinophils (%) (Auto) 1.0 % Basophils (%) (Auto) 0.5 % Neutrophils # (Auto) 9.46 K/uL Lymphocytes # (Auto) 3.71 K/uL Monocytes # (Auto) 0.90 K/uL Eosinophils # (Auto) 0.16 K/uL Basophils # (Auto) 0.08 K/uL RDW Standard Deviation 57.3 fL RDW Coefficient of Variation 16.7 % Immature Granulocyte % (Auto) 6.7 % Immature Granulocyte # (Auto) 1.02 K/uL Nucleated RBC Absolute Count (auto) 0.13 K/uL Nucleated Red Blood Cells % 0.8 % Poikilocytosis PRESENT Schistocytes OCCASIONAL Prothrombin Time 11.2 SECONDS Prothromb Time International Ratio 1.0 Activated Partial Thromboplast Time 39.8 SECONDS Partial Thromboplastin Ratio 1.5 Sodium Level 133 mmol/L Potassium Level 3.7 mmol/L Chloride Level 99 mmol/L Carbon Dioxide Level 14 mmol/L Anion Gap 20.0 mmol/L Blood Urea Nitrogen 88 mg/dl Creatinine 9.20 mg/dl Est Creatinine Clear Calc Drug Dose 7.5 ml/min Estimated GFR () 5.6 Estimated GFR (Non- 4.9 BUN/Creatinine Ratio 9.5 Random Glucose 379 mg/dl Calcium Level 11.1 mg/dl Total Bilirubin 0.3 mg/dl Aspartate Amino Transf (AST/SGOT) 185 U/L Alanine Aminotransferase (ALT/SGPT) 131 U/L Alkaline Phosphatase 103 U/L Troponin I 0.588 ng/ml Total Protein 6.3 gm/dl Albumin 2.1 gm/dl Globulin 4.2 gm/dl Albumin/Globulin Ratio 0.5 Beta-Hydroxybutyric Acid 12.14 mg/dL Test 04/07/17 22:40 04/07/17 22:50 04/07/17 23:10 04/08/17 01:44 White Blood Count 22.99 K/uL Red Blood Count 2.62 M/uL Hemoglobin 7.8 g/dL Hematocrit 24.4 % Mean Corpuscular Volume 93.1 fL Mean Corpuscular Hemoglobin 29.8 pg Mean Corpuscular Hemoglobin Concent 32.0 g/dl Platelet Count 280 K/uL Mean Platelet Volume 11.5 fL Neutrophils (%) (Auto) 85.6 % Lymphocytes (%) (Auto) 5.2 % Monocytes (%) (Auto) 3.6 % Eosinophils (%) (Auto) 0.6 % Basophils (%) (Auto) 0.3 % Neutrophils # (Auto) 19.68 K/uL Lymphocytes # (Auto) 1.20 K/uL Monocytes # (Auto) 0.83 K/uL Eosinophils # (Auto) 0.13 K/uL Basophils # (Auto) 0.06 K/uL RDW Standard Deviation 56.2 fL RDW Coefficient of Variation 16.5 % Immature Granulocyte % (Auto) 4.7 % Immature Granulocyte # (Auto) 1.09 K/uL Nucleated RBC Absolute Count (auto) 0.04 K/uL Nucleated Red Blood Cells % 0.2 % Polychromasia 1+ Echinocytes 1+ Sodium Level 137 mmol/L Potassium Level 4.0 mmol/L Chloride Level 100 mmol/L Carbon Dioxide Level 18 mmol/L Anion Gap 19.0 mmol/L Blood Urea Nitrogen 84 mg/dl Creatinine 8.70 mg/dl Est Creatinine Clear Calc Drug Dose 8.0 ml/min Estimated GFR () 6.0 Estimated GFR (Non- 5.2 BUN/Creatinine Ratio 9.7 Random Glucose 345 mg/dl Lactic Acid Level 9.0 mmol/L Calcium Level 9.5 mg/dl Phosphorus Level 9.0 mg/dl Magnesium Level 3.3 mg/dl Total Bilirubin 0.5 mg/dl Direct Bilirubin 0.2 mg/dl Aspartate Amino Transf (AST/SGOT) 250 U/L Alanine Aminotransferase (ALT/SGPT) 162 U/L Alkaline Phosphatase 115 U/L Total Protein 6.1 gm/dl Albumin 2.0 gm/dl Beta-Hydroxybutyric Acid 7.67 mg/dL Procalcitonin 0.65 ng/ml Random Cortisol 49.33 mcg/dl Creatine Kinase MB Ratio Creatine Kinase MB 7.1 ng/ml Troponin I 0.805 ng/ml Bedside Glucose (other) 223 mg/dl Test 04/08/17 02:43 04/08/17 03:33 04/08/17 04:00 04/08/17 04:01 Bedside Glucose (other) 193 mg/dl 176 mg/dl Arterial Blood pH 7.21 Arterial Blood Partial Pressure CO2 60 mmHg Arterial Blood Partial Pressure O2 69 mm/Hg Arterial Blood HCO3 23 mmol/L Arterial Blood Oxygen Saturation 88.0 % Arterial Blood Base Excess -4.6 mEq/L Arterial Blood Gas Delivery 100% Raciel Test POS White Blood Count 22.53 K/uL Red Blood Count 2.62 M/uL Hemoglobin 7.8 g/dL Hematocrit 23.9 % Mean Corpuscular Volume 91.2 fL Mean Corpuscular Hemoglobin 29.8 pg Mean Corpuscular Hemoglobin Concent 32.6 g/dl Platelet Count 221 K/uL Mean Platelet Volume 11.3 fL RDW Standard Deviation 55.1 fL RDW Coefficient of Variation 16.5 % Nucleated RBC Absolute Count (auto) 0.03 K/uL Neutrophils % (Manual) 93.9 % Lymphocytes % (Manual) 0.0 % Monocytes % (Manual) 6.1 % Nucleated Red Blood Cells % 0.1 % Neutrophils # (Manual) 21.16 K/uL Total Absolute Neutrophils 21.16 K/uL Total Absolute Lymphocytes 0.00 K/uL Monocytes # (Manual) 1.37 K/uL Basophilic Stippling 1+ Prothrombin Time 12.2 SECONDS Prothromb Time International Ratio 1.1 Activated Partial Thromboplast Time 39.0 SECONDS Partial Thromboplastin Ratio 1.5 Sodium Level 136 mmol/L Potassium Level 3.8 mmol/L Chloride Level 100 mmol/L Carbon Dioxide Level 25 mmol/L Anion Gap 11.0 mmol/L Blood Urea Nitrogen 53 mg/dl Creatinine 5.50 mg/dl Est Creatinine Clear Calc Drug Dose 12.9 ml/min Estimated GFR () 10.5 Estimated GFR (Non- 9.1 BUN/Creatinine Ratio 9.7 Random Glucose 239 mg/dl Calcium Level 7.7 mg/dl Phosphorus Level 5.2 mg/dl Magnesium Level 2.5 mg/dl Total Creatine Kinase 589 U/L Creatine Kinase MB 48.1 ng/ml Creatine Kinase MB Ratio 8.2 Troponin I 14.900 ng/ml Random Vancomycin Level < 0.8 mcg/ml Test 04/08/17 04:14 04/08/17 05:34 04/08/17 06:30 04/08/17 07:39 Bedside Hemoglobin 7.8 g/dl Bedside Hematocrit 23 % Bedside Blood Gas pH (LAB) 7.22 Bedside Blood Gas pCO2 (LAB) 59 mmHg Bedside Blood Gas pO2 (LAB) 65 mmHg Bedside Blood Gas HCO3 (LAB) 24 meq/L Bedside Blood Gas Total CO2 26 mEq/l Bedside Blood Gas Base Excess (LAB) -4.0 meq/L Bedside Blood Gas O2 Saturation 87.0 % Bedside Sodium 135 mEq/L Bedside Potassium 3.7 mEq/L Bedside Glucose (other) 254 mg/dl 250 mg/dl 256 mg/dl Test 04/08/17 08:05 04/08/17 08:38 04/08/17 08:49 04/08/17 10:06 Blood Gas Sample Site Art Line Bedside Blood Gas pH (LAB) 7.27 Bedside Blood Gas pCO2 (LAB) 47 mmHg Bedside Blood Gas pO2 (LAB) 55 mmHg Bedside Blood Gas HCO3 (LAB) 22 meq/L Bedside Blood Gas Total CO2 23 mEq/l Bedside Blood Gas Base Excess (LAB) -5.0 meq/L Bedside Blood Gas O2 Saturation 87.0 % Raciel Test NA Oxygen Delivery Device Ventilator Bedside Oxygen Rate (breaths/min) 26 Blood Gas Minute Ventilation 12.5 Bedside FiO2 100 % Blood Gas Tidal Volume 500 Blood Gas PEEP 12 White Blood Count 19.34 K/uL Red Blood Count 2.53 M/uL Hemoglobin 7.7 g/dL Hematocrit 23.1 % Mean Corpuscular Volume 91.3 fL Mean Corpuscular Hemoglobin 30.4 pg Mean Corpuscular Hemoglobin Concent 33.3 g/dl Platelet Count 165 K/uL Mean Platelet Volume 10.9 fL Neutrophils (%) (Auto) 90.3 % Lymphocytes (%) (Auto) 3.3 % Monocytes (%) (Auto) 3.9 % Eosinophils (%) (Auto) 0.0 % Basophils (%) (Auto) 0.1 % Neutrophils # (Auto) 17.46 K/uL Lymphocytes # (Auto) 0.63 K/uL Monocytes # (Auto) 0.76 K/uL Eosinophils # (Auto) 0.00 K/uL Basophils # (Auto) 0.02 K/uL RDW Standard Deviation 55.3 fL RDW Coefficient of Variation 16.7 % Immature Granulocyte % (Auto) 2.4 % Immature Granulocyte # (Auto) 0.47 K/uL Basophilic Stippling 1+ Echinocytes 1+ Prothrombin Time 13.7 SECONDS Prothromb Time International Ratio 1.3 Activated Partial Thromboplast Time 41.5 SECONDS Partial Thromboplastin Ratio 1.6 Sodium Level 133 mmol/L Potassium Level 3.9 mmol/L Chloride Level 97 mmol/L Carbon Dioxide Level 22 mmol/L Anion Gap 14.0 mmol/L Blood Urea Nitrogen 54 mg/dl Creatinine 5.90 mg/dl Est Creatinine Clear Calc Drug Dose 12.0 ml/min Estimated GFR () 9.7 Estimated GFR (Non- 8.3 BUN/Creatinine Ratio 9.2 Random Glucose 274 mg/dl Calcium Level 8.3 mg/dl Phosphorus Level 5.8 mg/dl Magnesium Level 2.6 mg/dl Bedside Glucose (other) 272 mg/dl 271 mg/dl Test 04/08/17 11:04 04/08/17 11:47 04/08/17 11:55 9/14/17 12:13 Bedside Glucose (other) 264 mg/dl 254 mg/dl White Blood Count 19.07 K/uL Red Blood Count 2.53 M/uL Hemoglobin 7.4 g/dL Hematocrit 23.1 % Mean Corpuscular Volume 91.3 fL Mean Corpuscular Hemoglobin 29.2 pg Mean Corpuscular Hemoglobin Concent 32.0 g/dl Platelet Count 162 K/uL Mean Platelet Volume 11.5 fL Neutrophils (%) (Auto) 89.5 % Lymphocytes (%) (Auto) 4.4 % Monocytes (%) (Auto) 3.2 % Eosinophils (%) (Auto) 0.1 % Basophils (%) (Auto) 0.2 % Neutrophils # (Auto) 17.09 K/uL Lymphocytes # (Auto) 0.84 K/uL Monocytes # (Auto) 0.61 K/uL Eosinophils # (Auto) 0.01 K/uL Basophils # (Auto) 0.03 K/uL RDW Standard Deviation 55.9 fL RDW Coefficient of Variation 16.5 % Immature Granulocyte % (Auto) 2.6 % Immature Granulocyte # (Auto) 0.49 K/uL Toxic Vacuolation 1+ Basophilic Stippling 1+ Prothrombin Time 14.3 SECONDS Prothromb Time International Ratio 1.3 Activated Partial Thromboplast Time 41.1 SECONDS Partial Thromboplastin Ratio 1.6 Sodium Level 134 mmol/L Potassium Level 3.4 mmol/L Chloride Level 98 mmol/L Carbon Dioxide Level 22 mmol/L Anion Gap 14.0 mmol/L Blood Urea Nitrogen 53 mg/dl Creatinine 5.80 mg/dl Est Creatinine Clear Calc Drug Dose 12.2 ml/min Estimated GFR () 9.9 Estimated GFR (Non- 8.5 BUN/Creatinine Ratio 9.3 Random Glucose 244 mg/dl Calcium Level 7.9 mg/dl Phosphorus Level 5.4 mg/dl Magnesium Level 2.4 mg/dl Blood Gas Sample Site Art Line Bedside Blood Gas pH (LAB) 7.29 Bedside Blood Gas pCO2 (LAB) 46 mmHg Bedside Blood Gas pO2 (LAB) 77 mmHg Bedside Blood Gas HCO3 (LAB) 23 meq/L Bedside Blood Gas Total CO2 24 mEq/l Bedside Blood Gas Base Excess (LAB) -4.0 meq/L Bedside Blood Gas O2 Saturation 95.0 % Raciel Test NA Oxygen Delivery Device Ventilator Bedside Oxygen Rate (breaths/min) 26 Blood Gas Minute Ventilation 11.9 Bedside FiO2 100 % Blood Gas Tidal Volume 500 Blood Gas PEEP 15 Test 04/08/17 13:14 04/08/17 14:07 04/08/17 14:57 04/08/17 15:47 Bedside Glucose (other) 246 mg/dl 235 mg/dl 230 mg/dl White Blood Count 19.09 K/uL Red Blood Count 2.51 M/uL Hemoglobin 7.5 g/dL Hematocrit 22.8 % Mean Corpuscular Volume 90.8 fL Mean Corpuscular Hemoglobin 29.9 pg Mean Corpuscular Hemoglobin Concent 32.9 g/dl Platelet Count 155 K/uL Mean Platelet Volume 11.5 fL Neutrophils (%) (Auto) 86.9 % Lymphocytes (%) (Auto) 6.7 % Monocytes (%) (Auto) 3.2 % Eosinophils (%) (Auto) 0.2 % Basophils (%) (Auto) 0.2 % Neutrophils # (Auto) 16.61 K/uL Lymphocytes # (Auto) 1.27 K/uL Monocytes # (Auto) 0.61 K/uL Eosinophils # (Auto) 0.03 K/uL Basophils # (Auto) 0.04 K/uL RDW Standard Deviation 54.5 fL RDW Coefficient of Variation 16.4 % Immature Granulocyte % (Auto) 2.8 % Immature Granulocyte # (Auto) 0.53 K/uL Basophilic Stippling 1+ Prothrombin Time 14.7 SECONDS Prothromb Time International Ratio 1.4 Activated Partial Thromboplast Time 39.2 SECONDS Partial Thromboplastin Ratio 1.5 Sodium Level 132 mmol/L Potassium Level 3.4 mmol/L Chloride Level 95 mmol/L Carbon Dioxide Level 24 mmol/L Anion Gap 13.0 mmol/L Blood Urea Nitrogen 58 mg/dl Creatinine 6.30 mg/dl Est Creatinine Clear Calc Drug Dose 11.3 ml/min Estimated GFR () 8.9 Estimated GFR (Non- 7.7 BUN/Creatinine Ratio 9.2 Random Glucose 220 mg/dl Calcium Level 8.0 mg/dl Phosphorus Level 5.9 mg/dl Magnesium Level 2.5 mg/dl Troponin I 84.300 ng/ml Test 04/08/17 15:50 04/08/17 16:18 04/08/17 17:19 04/08/17 17:59 Bedside Glucose (other) 223 mg/dl 203 mg/dl 186 mg/dl Blood Gas Sample Site Art Line Bedside Blood Gas pH (LAB) 7.28 Bedside Blood Gas pCO2 (LAB) 52 mmHg Bedside Blood Gas pO2 (LAB) 144 mmHg Bedside Blood Gas HCO3 (LAB) 25 meq/L Bedside Blood Gas Total CO2 26 mEq/l Bedside Blood Gas Base Excess (LAB) -2.0 meq/L Bedside Blood Gas O2 Saturation 99.0 % Raciel Test NA Oxygen Delivery Device Ventilator Bedside Oxygen Rate (breaths/min) 26 Blood Gas Minute Ventilation 11.5 Bedside FiO2 100 % Blood Gas Tidal Volume 500 Blood Gas PEEP 15 Test 04/08/17 20:01 04/08/17 20:02 04/08/17 20:11 04/08/17 20:15 Prothrombin Time 14.7 SECONDS Prothromb Time International Ratio 1.4 Activated Partial Thromboplast Time 42.1 SECONDS Partial Thromboplastin Ratio 1.6 Sodium Level 131 mmol/L Potassium Level 3.3 mmol/L Chloride Level 95 mmol/L Carbon Dioxide Level 26 mmol/L Anion Gap 10.0 mmol/L Blood Urea Nitrogen 59 mg/dl Creatinine 6.30 mg/dl Est Creatinine Clear Calc Drug Dose 11.3 ml/min Estimated GFR () 8.9 Estimated GFR (Non- 7.7 BUN/Creatinine Ratio 9.2 Random Glucose 141 mg/dl Calcium Level 8.3 mg/dl Phosphorus Level 5.9 mg/dl Magnesium Level 2.3 mg/dl White Blood Count 17.69 K/uL Red Blood Count 2.54 M/uL Hemoglobin 7.7 g/dL Hematocrit 22.8 % Mean Corpuscular Volume 89.8 fL Mean Corpuscular Hemoglobin 30.3 pg Mean Corpuscular Hemoglobin Concent 33.8 g/dl Platelet Count 151 K/uL Mean Platelet Volume 11.4 fL Neutrophils (%) (Auto) 85.2 % Lymphocytes (%) (Auto) 7.0 % Monocytes (%) (Auto) 3.0 % Eosinophils (%) (Auto) 0.4 % Basophils (%) (Auto) 0.3 % Neutrophils # (Auto) 15.06 K/uL Lymphocytes # (Auto) 1.24 K/uL Monocytes # (Auto) 0.53 K/uL Eosinophils # (Auto) 0.07 K/uL Basophils # (Auto) 0.06 K/uL RDW Standard Deviation 54.0 fL RDW Coefficient of Variation 16.5 % Immature Granulocyte % (Auto) 4.1 % Immature Granulocyte # (Auto) 0.73 K/uL Basophilic Stippling 1+ Bedside Glucose (other) 142 mg/dl Blood Gas Sample Site Art Line Bedside Blood Gas pH (LAB) 7.33 Bedside Blood Gas pCO2 (LAB) 43 mmHg Bedside Blood Gas pO2 (LAB) 85 mmHg Bedside Blood Gas HCO3 (LAB) 23 meq/L Bedside Blood Gas Total CO2 25 mEq/l Bedside Blood Gas Base Excess (LAB) -3.0 meq/L Bedside Blood Gas O2 Saturation 97.0 % Raciel Test NA Oxygen Delivery Device Ventilator Bedside Oxygen Rate (breaths/min) 26 Blood Gas Minute Ventilation 12.1 Bedside FiO2 80 % Blood Gas Tidal Volume 500 Blood Gas PEEP 15 Problem Qualifiers (1) Respiratory failure: Chronicity: acute Respiratory failure complication: hypoxia Qualified Codes : J96.01 - Acute respiratory failure with hypoxia
[2017-04-08] MEDS ORDERED: LEVOFLOXACIN / D5W 500 MG in PREMIXED IN D5W 100 ML IV SCH (22:00)
[2017-04-09] VITALS (54 sets, daily range): BP systolic 68–162; BP diastolic 34–68; PULSE 63–96; TEMP 34.9–37; O2SAT 90–100
[2017-04-09 00:31] LABS: BASO % 0.3 %; BASO ABS # 0.05 K/uL (0-0.2); EOS % 0.7 %; HEMATOCRIT 22.3 % (42-52); IG% 4.9 %; LYMPH % 7.8 %; LYMPH ABS # 1.29 K/uL (1.2-3.4); MEAN CELL VOLUME 89.9 fL (80-100); MEAN CORPUSCULAR HGB CONC 34.5 g/dl (32-36); MEAN PLATELET VOLUME 11.7 fL (7.4-10.4); MONO % 3.4 %; NEUT % 82.9 %; PLATELET COUNT 163 K/uL (130-400); RED BLOOD COUNT 2.48 M/uL (4.7-6.1); WHITE BLOOD COUNT 16.64 K/uL (4.8-10.8)
[2017-04-09 00:34] LABS: ISTAT ARTERIAL BLOOD GAS HCO3 23 meq/L (19-24); ISTAT ARTERIAL BLOOD GAS PCO2 45 mmHg (35-46); ISTAT ARTERIAL BLOOD GAS PO2 121 mmHg (80-95); ISTAT ARTERIAL BLOOD GAS pH 7.31 (7.35-7.45); ISTAT CARBON DIOXIDE 25 mEq/l (24-31); ISTAT DELIVERY SYSTEM Ventilator; ISTAT FIO2 80 %; ISTAT PEEP 15; ISTAT RATE 26; ISTAT SITE Art Line; VE 12.1; Vt 500
[2017-04-09 00:45] LABS: INR 1.3 (0.9-1.1); PARTIAL THROMBOPLASTIN RATIO 1.9; PROTHROMBIN TIME (PATIENT) 14.2 SECONDS (9.0-12.0)
[2017-04-09 01:01] LABS: COMPLETE YES
[2017-04-09] MEDS ORDERED: DEXTROSE 50% 50 ML SYR ONE (01:04)
[2017-04-09 01:13] LABS: BUN/CREATININE RATIO 9.1 (10-20); CALCIUM 8.5 mg/dl (8.5-10.1); CREATININE 6.5 mg/dl (0.60-1.40); MAGNESIUM 2.3 mg/dl (1.8-2.4); PHOSPHORUS 6.2 mg/dl (2.5-4.9); POTASSIUM 3.3 mmol/L (3.5-5.1)
[2017-04-09] MEDS: AMIODARONE / D5W 200 ML IV SCH ×2 (01:39→13:47)
[2017-04-09] MEDS: PIPERACILL/TAZOBAC IV 3.375 GM in DEXTROSE 5% 100ML IV SCH ×2 (01:39→14:12)
[2017-04-09] MEDS: DOXYCYCLINE HYCLATE 100 MG in DEXTROSE 5% 100ML IV SCH ×2 (01:39→14:12)
[2017-04-09 04:08] LABS: HEMATOCRIT 21.8 % (42-52); MEAN CELL VOLUME 89.7 fL (80-100); MEAN CORPUSCULAR HEMOGLOBIN 29.6 pg (25-34); PLATELET COUNT 172 K/uL (130-400); RED BLOOD COUNT 2.43 M/uL (4.7-6.1); WHITE BLOOD COUNT 17.21 K/uL (4.8-10.8)
[2017-04-09 04:30] LABS: ISTAT ARTERIAL BLOOD GAS HCO3 24 meq/L (19-24); ISTAT ARTERIAL BLOOD GAS PCO2 48 mmHg (35-46); ISTAT ARTERIAL BLOOD GAS PO2 127 mmHg (80-95); ISTAT ARTERIAL BLOOD GAS pH 7.29 (7.35-7.45); ISTAT CARBON DIOXIDE 25 mEq/l (24-31); ISTAT DELIVERY SYSTEM Ventilator; ISTAT FIO2 80 %; ISTAT PEEP 15; ISTAT RATE 26; ISTAT SITE Art Line; VE 12.5; Vt 500
[2017-04-09 04:32] LABS: INR 1.3 (0.9-1.1); PARTIAL THROMBOPLASTIN RATIO 2.1; PROTHROMBIN TIME (PATIENT) 13.8 SECONDS (9.0-12.0)
[2017-04-09 05:12] LABS: BUN/CREATININE RATIO 9.6 (10-20); CALCIUM 8.4 mg/dl (8.5-10.1); CREATININE 6.4 mg/dl (0.60-1.40); MAGNESIUM 2.3 mg/dl (1.8-2.4); PHOSPHORUS 6.5 mg/dl (2.5-4.9); POTASSIUM 3.3 mmol/L (3.5-5.1)
[2017-04-09 05:14] LABS: BASO % 0.2 %; BASO ABS # 0.04 K/uL (0-0.2); COMPLETE YES; EOS % 1.1 %; IG% 4.6 %; LYMPH % 7.7 %; LYMPH ABS # 1.33 K/uL (1.2-3.4); NEUT % 83.4 %
--- NOTE | 2017-04-09 07:15 | DIAGNOSTIC IMAGING REPORT ---
CHEST ONE VIEW PORTABLE CLINICAL HISTORY: intubated cardiac arrest tube position COMPARISON STUDY: 04/08/2017 FINDINGS: Endotracheal tube 5.5 cm above the shilpi. Findings of congestive failure and mild pulmonary edema slightly progressive from the prior study. The bilateral fractures appears described as not easily seen in the study possibly due to technical variation. No evidence pneumothorax. IMPRESSION: 1. Endotracheal tube 5.5 cm with the shilpi. 2. Findings a slightly progressive congestive failure versus pulmonary edema The above report was generated using voice recognition software. It may contain grammatical, syntax or spelling errors. Electronically signed by: Santos Delgado M.D. 04/09/2017 7:13 AM Dictated Date/Time: 04/09/2017 7:12 AM
[2017-04-09] MEDS: INSULIN ASPART 100 UNITS/ML 3 ML PEN SC SCH ×4 (07:31→21:00)
[2017-04-09] MEDS: SODIUM BICARBONATE 650 MG TAB PO SCH (07:33)
[2017-04-09] MEDS ORDERED: VANCOMYCIN INJ 750 MG in SODIUM CHLORIDE 0.9% 250ML 150 ML IV ONE (07:45)
[2017-04-09] MEDS: ALBUTEROL HFA 8 GM INHALER INH SCH ×4 (07:56→22:20)
[2017-04-09] MEDS: IPRATROPIUM BROMIDE HFA INHALER INH SCH ×4 (07:56→22:20)
[2017-04-09] MEDS: PHENYLEPHRINE HCL INJ 80 MG in DEXTROSE 5% 500ML 500 ML IV PRN ×2 (08:04→18:09)
--- NOTE | 2017-04-09 08:17 | EEG Procedure Note ---
EEG Procedure Note Date of Service Apr 09, 2017. Start / End Times Start Time: 04/08/2017 at 16:42 PM End Time: 04/09/2017 at 17:[address] Weller History This is a 81-year-old male with in-hospital cardiac arrest and hypothermia protocol. Continuous video EEG monitoring per hypothermia protocol to monitor for subclinical seizures. Home Medication List Scheduled Amlodipine Besylate (Norvasc), 5 MG PO QAM Aspirin (Aspir-81), 81 MG PO QAM Hydrocortisone (Topical) (Hydrocortisone), 1 APPLN EXT BID Insulin Aspart (Novolog Flexpen), 18 UNITS SC QAM Insulin Aspart (Novolog Flexpen), 19 UNITS SQ LUNCH Insulin Aspart (Novolog Flexpen), 22 UNITS SQ QPM Insulin Glargine (Lantus Solostar), 30-35 UNITS SQ HS Lidocaine-Prilocaine (Ytbmjsewj-Dgvxfxfbey-Jtcr 2.5-2.5 %), 1 APPLN TOP UD Metoprolol Succinate (Metoprolol Succinate ER), 50 MG PO QPM Ocuvite Preservision (Ocuvite Preservision), 2 TABS PO DAILY Ranitidine (Zantac), 150 MG PO HS Sodium Bicarbonate (Antacid) (Sodium Bicarbonate), 650 MG PO BIDM Vitamin B Cmplx/Vitc/Folic Ac (Nephrocaps), 1 CAP PO DAILY Scheduled PRN Diphenhydramine Hcl (Benadryl Allergy), 1 CAP PO every 12 hours PRN for itching Oxycodone/Acetaminophen 5MG/325MG (Percocet 5MG/325MG), 1-2 TABLETS PO Q8 PRN for Pain Inpatient Medication List Current Inpatient Medications Medications (Trade) Dose Ordered Sig/Brennan Route Start Time Stop Time Status Last Admin Dose Admin Amlodipine Besylate (Norvasc Tab) 5 mg QAM PO 04/07/17 09:00 05/07/17 08:59 Future Hold 04/07/17 07:50 5 MG Diphenhydramine HCl (Benadryl Cap) 25 mg Q8H PRN PO 04/07/17 00:00 05/07/17 00:00 Future Hold Metoprolol Succinate (Toprol Xl Tab) 50 mg QPM PO 04/07/17 21:00 05/07/17 20:59 Future Hold 04/07/17 19:47 50 MG Sodium Bicarbonate (Sodium Bicarbonate Tab) 650 mg BIDM PO 04/07/17 07:30 05/07/17 07:59 04/09/17 07:33 650 MG Vitamin B Complex/ Vit C/Folic Acid (Nephrocaps) 1 cap DAILY PO 04/07/17 09:00 05/07/17 08:59 Future Hold 04/07/17 07:50 1 CAP Acetaminophen (Tylenol Tab) 650 mg Q4H PRN PO 04/07/17 00:00 05/07/17 00:00 Al Hydrox/Mg Hydrox/Simethicone (Maalox Max Susp) 15 ml Q4H PRN PO 04/07/17 00:00 05/07/17 00:00 Magnesium Hydroxide (Milk Of Magnesia Susp) 30 ml Q12H PRN PO 04/07/17 00:00 05/07/17 00:00 Cholestyramine Resin (Questran Powder Light) 4 gm BID@10,22 PO 04/07/17 22:00 05/07/17 21:59 Future Hold Vancomycin HCl (Consult) 1 ea UD PRN N/A 04/07/17 19:15 05/07/17 19:14 Piperacillin Sod/ Tazobactam Sod (Consult) 1 ea UD PRN N/A 04/07/17 19:15 05/07/17 19:14 Piperacillin Sod/ Tazobactam Sod 3.375 gm/Dextrose 115 ml @ 28.75 mls/ hr Q12H IV 04/08/17 02:00 04/15/17 01:59 04/09/17 01:39 28.75 MLS/HR Artificial Tears (Lacri-Lube Oph Oint) 1 appln Q2H PRN OPB 04/07/17 23:00 05/07/17 22:59 04/08/17 06:14 1 APPLN Midazolam HCl 250 ml @ 0 mls/hr Q0M PRN IV 04/07/17 22:50 05/07/17 22:49 04/08/17 00:19 5 MLS/HR Fentanyl Citrate 250 ml @ 0 mls/hr Q0M PRN IV 04/07/17 22:50 04/21/17 22:49 04/08/17 00:22 5 MLS/HR Buspirone HCl (BusPAR TAB) 60 mg ONE PRN NG 04/07/17 23:00 05/07/17 22:59 Ioversol (Optiray 320) 100 ml UD PRN IV 04/07/17 23:15 04/11/17 23:14 Insulin Aspart (novoLOG ASPART) SLIDING [facility]ALE [facility] 04/08/17 08:00 05/08/17 07:59 Insulin Human Regular 250 units/ Sodium Chloride 252.5 ml @ 0 mls/hr DAILY@1130 IV 04/08/17 00:15 05/08/17 00:14 04/08/17 11:46 8.9 MLS/HR Amiodarone HCL/ Dextrose 200 ml @ 16.7 mls/hr [id number] IV 04/08/17 02:30 05/08/17 02:29 04/09/17 01:39 16.7 MLS/HR Pantoprazole Sodium 40 mg/ Syringe 10 ml @ 5 mls/min DAILY@11 IV 04/08/17 11:00 05/08/17 10:59 04/08/17 09:59 5 MLS/MIN Ipratropium [place] (Atrovent Hfa Inhaler) 4 puffs QIDR INH 04/08/17 12:00 05/08/17 11:59 04/09/17 07:56 4 PUFFS Albuterol (Ventolin Hfa Inhaler) 4 puffs QIDR INH 04/08/17 12:00 05/08/17 11:59 04/09/17 07:56 4 PUFFS Miscellaneous Information (Consult Glycemic Management Pharmacy) 1 ea UD PRN N/A 04/08/17 13:45 05/08/17 13:44 Doxycycline Hyclate 100 mg/ Dextrose 110 ml @ 55 mls/hr Q12H IV 04/08/17 14:00 04/15/17 13:59 04/09/17 01:39 55 MLS/HR Phenylephrine HCl 80 mg/Dextrose 508 ml @ 0 mls/hr Q0M PRN IV 04/08/17 14:45 05/08/17 14:44 04/09/17 08:04 48.7 MLS/HR Heparin Sodium/ Dextrose 500 ml @ 20 mls/hr Q24H PRN IV 04/08/17 18:15 05/08/17 18:14 04/08/17 18:21 20 MLS/HR Heparin Sodium (Porcine) (Heparin 10 Unit/ ml 5 ml Flush) 5 ml PRN PRN FLUSH 04/09/17 00:45 05/09/17 00:44 Vancomycin HCl 750 mg/Sodium Chloride 165 ml @ 75 mls/hr NOW ONCE IV 04/09/17 07:45 04/09/17 09:56 04/09/17 07:58 75 MLS/HR Description This is a 21 electrode video EEG with a single channel dedicated to limited EKG. The electrodes were placed in accordance with the International 10-20 system. Post processing with an event detection algorithm is applied to the continuous data collection for the purpose of identifying abnormal epochs. These detections are reviewed and all candidate seizures are processed for further analysis. Data is reviewed in its raw format and patient events are processed, edited and stored. At the start of this recording the patient was intubated, and altered mental status, in the ICU. Background was poorly organized and there was no anterior to posterior gradient. Background was composed of predominantly symmetric moderate amplitude 5-7 Hz theta frequencies with intermixed delta and alpha frequencies. There was variability. There was no state changes or sleep transients. Occasional high amplitude EEG artifact noted often in association with manual manipulation of trach or moving patient as seen on video review. Interpretation This is an abnormal continuous video EEG secondary to moderate background disorganization and slowing. There was no electrographic seizures or epileptiform discharges. Clinical Correlation This EEG indicates moderate encephalopathy of nonspecific etiology. Hypothermia and sedating medications can contribute to encephalopathy.
[2017-04-09 08:21] LABS: ISTAT ARTERIAL BLOOD GAS HCO3 23 meq/L (19-24); ISTAT ARTERIAL BLOOD GAS PCO2 46 mmHg (35-46); ISTAT ARTERIAL BLOOD GAS PO2 104 mmHg (80-95); ISTAT ARTERIAL BLOOD GAS pH 7.29 (7.35-7.45); ISTAT CARBON DIOXIDE 24 mEq/l (24-31); ISTAT DELIVERY SYSTEM Ventilator; ISTAT FIO2 80 %; ISTAT PEEP 15; ISTAT RATE 26; ISTAT SITE Art Line; VE 13; Vt 500
[2017-04-09 08:35] LABS: HEMATOCRIT 22.8 % (42-52); MEAN CELL VOLUME 89.8 fL (80-100); MEAN CORPUSCULAR HEMOGLOBIN 29.9 pg (25-34); MEAN CORPUSCULAR HGB CONC 33.3 g/dl (32-36); MEAN PLATELET VOLUME 11.8 fL (7.4-10.4); PLATELET COUNT 195 K/uL (130-400); RED BLOOD COUNT 2.54 M/uL (4.7-6.1); WHITE BLOOD COUNT 19.64 K/uL (4.8-10.8)
[2017-04-09] MEDS ORDERED: ACETAMINOPHEN IV 650 MG / 65ML IV PRN (08:45)
[2017-04-09] MEDS: MIDAZOLAM HCL 1 MG/ML 2ML VIAL IV PRN ×3 (08:53→12:39)
[2017-04-09] MEDS: FENTANYL CITRATE INJ 50 MCG/1 ML 2 ML VIAL IV PRN ×3 (08:54→12:30)
[2017-04-09 08:57] LABS: INR 1.2 (0.9-1.1); PARTIAL THROMBOPLASTIN RATIO 2.2; PROTHROMBIN TIME (PATIENT) 13.2 SECONDS (9.0-12.0)
--- NOTE | 2017-04-09 09:27 | Pharmacy Progress Note ---
Glycemic Control Progress Note Date of Service Apr 09, 2017. Scope Glycemic Pharmacist consulted for glycemic control to write orders per [facility] inpatient glycemic control protocol. Objective Accuchecks BSG (last 24hrs): Test 04/08/17 11:47 04/08/17 15:47 04/08/17 20:01 04/09/17 00:08 Random Glucose 244 mg/dl (70-99) 220 mg/dl (70-99) 141 mg/dl (70-99) 76 mg/dl (70-99) Test 04/09/17 04:00 04/09/17 08:19 Random Glucose 99 mg/dl (70-99) Recent Pertinent Medications The patient is currently receiving: * Insulin drip (severe stress, goal range 100-180 mg/dL) Outpatient Anti-Diabetic Meds Basal Insulin Bolus Insulin Assessment & Plan ASSESSMENT: 04/09 * 81 yo diabetic M admitted to ICU s/p code blue overnight. * Patient started on insulin drip per protocol overnight and will remain on the drip due to critical condition and current stressors. * ADA & AACE recommend a goal blood sugar range 140-180 mg/dl for the majority of critically ill & non-critically ill patients. Goal range of 100-180 mg/dL will be instituted in attempt to cut down on BSG checks once within goal range. 04/10 * Patient in rewarming phase of therapeutic hypothermia. Anticipate normothermia to be achieved this afternoon. * Per ICU rounds, continue insulin gtt for now 2nd multiple changes occurring today. * Spoke w Dr. Brian LINK to give small Lantus 10 unit dose this PM * Current stressors include therapeutic hypothermia, mechanical ventilation, infection, pressure support, multiple dextrose containing IVF's PLAN FOR INPATIENT GLYCEMIC CONTROL: * Continue IV insulin infusion per severe stress protocol * Goal Range 100 - 180 mg/dl * In the critical care setting (and especially during therapeutic hypothermia) , continuous IV insulin infusion has been shown to be the best method for achieving glycemic targets. * Lantus 10 units x1 this PM in anticipation of transitioning off drip 04/10 AM * Please note that the plan above was derived based on current level of insulin resistance and hospital stress. These recommendations are appropriate for inpatient admission only. Plan of care upon discharge will need to be reassessed to avoid potential outpatient hypo/hyperglycemia. Thank you.
[2017-04-09 09:29] LABS: BUN/CREATININE RATIO 9.2 (10-20); CREATININE 6.5 mg/dl (0.60-1.40); MAGNESIUM 2.3 mg/dl (1.8-2.4); PHOSPHORUS 6.9 mg/dl (2.5-4.9); POTASSIUM 3.7 mmol/L (3.5-5.1)
--- NOTE | 2017-04-09 09:30 | Pharmacy Progress Note ---
Pharmacy Antibiotic Prog Note Date of Service Apr 09, 2017. Subjective The patient is currently receiving vancomycin prn HD schedule The patient is currently on day # 2 of vancomycin IV therapy. Objective Height (Feet): 5 Height (Inches): 9.00 Weight (Kilograms): 103.100 Lab Results (24hrs): Test 04/08/17 11:47 04/08/17 15:47 04/09/17 00:08 04/09/17 04:00 Toxic Vacuolation 1+ Troponin I 84.300 ng/ml (0-0.045) 84.200 ng/ml (0-0.045) Immature Granulocyte % (Auto) 4.9 % 4.6 % White Blood Count 16.64 K/uL (4.8-10.8) 17.21 K/uL (4.8-10.8) Red Blood Count 2.48 M/uL (4.7-6.1) 2.43 M/uL (4.7-6.1) Hemoglobin 7.7 g/dL (14.0-18.0) 7.2 g/dL (14.0-18.0) Hematocrit 22.3 % (42-52) 21.8 % (42-52) Mean Corpuscular Volume 89.9 fL (80-100) 89.7 fL (80-100) Mean Corpuscular Hemoglobin 31.0 pg (25-34) 29.6 pg (25-34) Mean Corpuscular Hemoglobin Concent 34.5 g/dl (32-36) 33.0 g/dl (32-36) Platelet Count 163 K/uL (130-400) 172 K/uL (130-400) Mean Platelet Volume 11.7 fL (7.4-10.4) 11.0 fL (7.4-10.4) Neutrophils (%) (Auto) 82.9 % 83.4 % Lymphocytes (%) (Auto) 7.8 % 7.7 % Monocytes (%) (Auto) 3.4 % 3.0 % Eosinophils (%) (Auto) 0.7 % 1.1 % Basophils (%) (Auto) 0.3 % 0.2 % Neutrophils # (Auto) 13.81 K/uL (1.4-6.5) 14.35 K/uL (1.4-6.5) Lymphocytes # (Auto) 1.29 K/uL (1.2-3.4) 1.33 K/uL (1.2-3.4) Monocytes # (Auto) 0.57 K/uL (0.11-0.59) 0.51 K/uL (0.11-0.59) Eosinophils # (Auto) 0.11 K/uL (0-0.5) 0.19 K/uL (0-0.5) Basophils # (Auto) 0.05 K/uL (0-0.2) 0.04 K/uL (0-0.2) Immature Granulocyte # (Auto) 0.81 K/uL (0.00-0.02) 0.79 K/uL (0.00-0.02) Nucleated RBC Absolute Count (auto) 0.03 K/uL (0-0) Nucleated Red Blood Cells % 0.2 % Basophilic Stippling OCCASIONAL OCCASIONAL Est Creatinine Clear Calc Drug Dose 10.9 ml/min 11.1 ml/min RDW Standard Deviation 53.4 fL (36.4-46.3) RDW Coefficient of Variation 16.2 % (11.5-14.5) Prothrombin Time 13.8 SECONDS (9.0-12.0) Prothromb Time International Ratio 1.3 (0.9-1.1) Activated Partial Thromboplast Time 53.9 SECONDS (21.0-31.0) Partial Thromboplastin Ratio 2.1 Sodium Level 128 mmol/L (136-145) Potassium Level 3.3 mmol/L (3.5-5.1) Chloride Level 93 mmol/L (98-107) Carbon Dioxide Level 24 mmol/L (21-32) Anion Gap 11.0 mmol/L (3-11) Blood Urea Nitrogen 61 mg/dl (7-18) Creatinine 6.40 mg/dl (0.60-1.40) Estimated GFR () 8.8 Estimated GFR (Non- 7.6 BUN/Creatinine Ratio 9.6 (10-20) Random Glucose 99 mg/dl (70-99) Calcium Level 8.4 mg/dl (8.5-10.1) Phosphorus Level 6.5 mg/dl (2.5-4.9) Magnesium Level 2.3 mg/dl (1.8-2.4) Total Bilirubin 0.5 mg/dl (0.2-1) Direct Bilirubin 0.2 mg/dl (0-0.2) Aspartate Amino Transf (AST/SGOT) 7063 U/L (15-37) Alanine Aminotransferase (ALT/SGPT) 4259 U/L (12-78) Alkaline Phosphatase 91 U/L (45-117) Total Protein 5.1 gm/dl (6.4-8.2) Albumin 1.8 gm/dl (3.4-5.0) Random Vancomycin Level 13.6 mcg/ml Test 04/09/17 04:18 04/09/17 08:10 04/09/17 08:17 04/09/17 08:19 Blood Gas Sample Site Art Line Art Line Bedside Blood Gas pH (LAB) 7.29 (7.35-7.45) 7.29 (7.35-7.45) Bedside Blood Gas pCO2 (LAB) 48 mmHg (35-46) 46 mmHg (35-46) Bedside Blood Gas pO2 (LAB) 127 mmHg (80-95) 104 mmHg (80-95) Bedside Blood Gas HCO3 (LAB) 24 meq/L (19-24) 23 meq/L (19-24) Bedside Blood Gas Total CO2 25 mEq/l (24-31) 24 mEq/l (24-31) Bedside Blood Gas Base Excess (LAB) -3.0 meq/L (-9-1.8) -4.0 meq/L (-9-1.8) Bedside Blood Gas O2 Saturation 99.0 % (90-95) 98.0 % (90-95) Raciel Test NA NA Oxygen Delivery Device Ventilator Ventilator Bedside Oxygen Rate (breaths/min) 26 26 Blood Gas Minute Ventilation 12.5 13 Bedside FiO2 80 % 80 % Blood Gas Tidal Volume 500 500 Blood Gas PEEP 15 15 Bedside Glucose (other) 83 mg/dl (70-99) White Blood Count 19.64 K/uL (4.8-10.8) Red Blood Count 2.54 M/uL (4.7-6.1) Hemoglobin 7.6 g/dL (14.0-18.0) Hematocrit 22.8 % (42-52) Mean Corpuscular Volume 89.8 fL (80-100) Mean Corpuscular Hemoglobin 29.9 pg (25-34) Mean Corpuscular Hemoglobin Concent 33.3 g/dl (32-36) Platelet Count 195 K/uL (130-400) Mean Platelet Volume 11.8 fL (7.4-10.4) RDW Standard Deviation 53.3 fL (36.4-46.3) RDW Coefficient of Variation 16.1 % (11.5-14.5) Prothrombin Time 13.2 SECONDS (9.0-12.0) Prothromb Time International Ratio 1.2 (0.9-1.1) Activated Partial Thromboplast Time 56.2 SECONDS (21.0-31.0) Partial Thromboplastin Ratio 2.2 Test 04/09/17 08:44 Bedside Glucose (other) 87 mg/dl (70-99) Assessment & Plan Assessment * 81 yo M admitted 04/06 with SOB 2nd PNM and missed HD. Cardiac arrest with ROSC on 04/07 PM - therapeutic hypothermia initiated. Currently in re-warming phase with anticipation of normothermia later this afternoon. Patient remains critically ill in ICU, requiring ventilation and pressure support. * On Zosyn, vancomycin, and doxycycline for HAP. MRSA swab negative, but will continue vancomycin for now 2nd severity of illness. * Sequence of HD sessions, vancomycin levels, and vancomycin doses * 04/08 0400: completed 3 hr of emergent HD for metabolic acidosis * 04/08 0445: vancomycin 20 mg/kg IV load * 04/09 0400: Random vancomycin level subtherapeutic at 13.6 mcg/mL * Will give a one-time dose of vancomycin RASHI for subtherapeutic level * If patient is dialyzed today, will give an additional small dose post-HD Plan * Vancomycin 750 mg IV x1 now. Additional 500 mg IV x1 post-HD (if patient is dialyzed today) * Random level in AM Pharmacy will continue to follow and will adjust dose/frequency as necessary. Thank you
--- NOTE | 2017-04-09 09:47 | Nephrology Progress Note ---
Nephrology Progress Note Date of Service Apr 09, 2017. Chief Complaint ESRD on HD Subjective Mr. Galeano was seen & examined in the ICU in preparation for HD this morning. Plan of care was discussed w/ ICU attending and the patient's family. Mr. Galeano remains mechanically ventilated w/ continuous EEG monitoring and on phenylephrine support. Review of Systems Unable to obtain ROS Vital Signs Last 8 Hrs Date Time Temp Pulse Resp B/P (MAP) Pulse Ox O2 Delivery O2 Flow Rate FiO2 04/09/17 09:00 36.1 68 20 73/42 (52) 96 Mechanical Ventilator 50 89/34 (52) 04/09/17 08:50 50 04/09/17 08:00 100 Mechanical Ventilator 80 04/09/17 08:00 80 04/09/17 08:00 36.0 76 32 94/52 (66) 100 Mechanical Ventilator 80 104/47 (66) 04/09/17 07:56 80 04/09/17 07:00 35.7 74 33 100/59 (73) 100 Mechanical Ventilator 80 124/51 (75) 04/09/17 06:00 35.3 67 28 104/45 (64) 100 Mechanical Ventilator 80 98/57 (71) 04/09/17 05:28 80 04/09/17 05:00 35.1 65 26 98/57 (71) 100 Mechanical Ventilator 80 98/46 (63) 04/09/17 04:00 100 Mechanical Ventilator 80 04/09/17 04:00 80 04/09/17 04:00 35.2 63 27 104/47 (66) 100 Mechanical Ventilator 80 04/09/17 03:00 34.9 67 30 127/53 (77) 100 Mechanical Ventilator 80 121/63 (82) 04/09/17 02:15 80 04/09/17 02:00 35.1 64 26 106/47 (66) 100 Mechanical Ventilator 80 I & O 24-Hour Column 04/10/17 08:00 Output Total 0 ml Balance 0 ml Last Recorded Weight Weight (Kilograms): 103.100 Physical Exam General Appearance: + pertinent finding (acutely ill appearing. Patient is being mechanically ventilated) Head: normocephalic, atraumatic ENT: + pertinent finding (orotracheal intubation) Respiratory/Chest: + pertinent finding (coarse breath sounds anteriorly) Cardiovascular: regular rate, rhythm Abdomen/GI: soft, + pertinent finding (hypoactive bowel sounds) Extremities/Musculoskelatal: no pedal edema, + pertinent finding (L arm AVF w/ soft thrill and bruit) Family History No pertinent family history Negative for CKD / ESRD Social History Drug Use: none Marital Status: Housing Status: lives with family Occupation: retired . has Alzheimers and requires home health nursing. Patient is retired. Current smoker Laboratory Results Past 24 Hours 04/08/17 11:47 Red Blood Count 2.53, Mean Corpuscular Volume 91.3, Mean Corpuscular Hemoglobin 29.2, Mean Corpuscular Hemoglobin Concent 32.0, Mean Platelet Volume 11.5, Neutrophils (%) (Auto) 89.5, Lymphocytes (%) (Auto) 4.4, Monocytes (%) (Auto) 3.2, Eosinophils (%) (Auto) 0.1, Basophils (%) (Auto) 0.2, Neutrophils # (Auto) 17.09, Lymphocytes # (Auto) 0.84, Monocytes # (Auto) 0.61, Eosinophils # (Auto) 0.01, Basophils # (Auto) 0.03 04/08/17 15:47 Red Blood Count 2.51, Mean Corpuscular Volume 90.8, Mean Corpuscular Hemoglobin 29.9, Mean Corpuscular Hemoglobin Concent 32.9, Mean Platelet Volume 11.5, Neutrophils (%) (Auto) 86.9, Lymphocytes (%) (Auto) 6.7, Monocytes (%) (Auto) 3.2, Eosinophils (%) (Auto) 0.2, Basophils (%) (Auto) 0.2, Neutrophils # (Auto) 16.61, Lymphocytes # (Auto) 1.27, Monocytes # (Auto) 0.61, Eosinophils # (Auto) 0.03, Basophils # (Auto) 0.04 04/08/17 20:02 Red Blood Count 2.54, Mean Corpuscular Volume 89.8, Mean Corpuscular Hemoglobin 30.3, Mean Corpuscular Hemoglobin Concent 33.8, Mean Platelet Volume 11.4, Neutrophils (%) (Auto) 85.2, Lymphocytes (%) (Auto) 7.0, Monocytes (%) (Auto) 3.0, Eosinophils (%) (Auto) 0.4, Basophils (%) (Auto) 0.3, Neutrophils # (Auto) 15.06, Lymphocytes # (Auto) 1.24, Monocytes # (Auto) 0.53, Eosinophils # (Auto) 0.07, Basophils # (Auto) 0.06 04/09/17 00:08 Red Blood Count 2.48, Mean Corpuscular Volume 89.9, Mean Corpuscular Hemoglobin 31.0, Mean Corpuscular Hemoglobin Concent 34.5, Mean Platelet Volume 11.7, Neutrophils (%) (Auto) 82.9, Lymphocytes (%) (Auto) 7.8, Monocytes (%) (Auto) 3.4, Eosinophils (%) (Auto) 0.7, Basophils (%) (Auto) 0.3, Neutrophils # (Auto) 13.81, Lymphocytes # (Auto) 1.29, Monocytes # (Auto) 0.57, Eosinophils # (Auto) 0.11, Basophils # (Auto) 0.05 04/09/17 04:00 Red Blood Count 2.43, Mean Corpuscular Volume 89.7, Mean Corpuscular Hemoglobin 29.6, Mean Corpuscular Hemoglobin Concent 33.0, Mean Platelet Volume 11.0, Neutrophils (%) (Auto) 83.4, Lymphocytes (%) (Auto) 7.7, Monocytes (%) (Auto) 3.0, Eosinophils (%) (Auto) 1.1, Basophils (%) (Auto) 0.2, Neutrophils # (Auto) 14.35, Lymphocytes # (Auto) 1.33, Monocytes # (Auto) 0.51, Eosinophils # (Auto) 0.19, Basophils # (Auto) 0.04 04/09/17 08:19 Red Blood Count 2.54, Mean Corpuscular Volume 89.8, Mean Corpuscular Hemoglobin 29.9, Mean Corpuscular Hemoglobin Concent 33.3, Mean Platelet Volume 11.8 04/08/17 11:47 04/08/17 15:47 04/08/17 20:01 04/09/17 00:08 04/09/17 04:00 04/09/17 08:19 Test 04/08/17 10:06 04/08/17 11:04 04/08/17 11:47 04/08/17 11:55 Bedside Glucose (other) 271 mg/dl (70-99) 264 mg/dl (70-99) 254 mg/dl (70-99) White Blood Count 19.07 K/uL (4.8-10.8) Red Blood Count 2.53 M/uL (4.7-6.1) Hemoglobin 7.4 g/dL (14.0-18.0) Hematocrit 23.1 % (42-52) Mean Corpuscular Volume 91.3 fL (80-100) Mean Corpuscular Hemoglobin 29.2 pg (25-34) Mean Corpuscular Hemoglobin Concent 32.0 g/dl (32-36) Platelet Count 162 K/uL (130-400) Mean Platelet Volume 11.5 fL (7.4-10.4) Neutrophils (%) (Auto) 89.5 % Lymphocytes (%) (Auto) 4.4 % Monocytes (%) (Auto) 3.2 % Eosinophils (%) (Auto) 0.1 % Basophils (%) (Auto) 0.2 % Neutrophils # (Auto) 17.09 K/uL (1.4-6.5) Lymphocytes # (Auto) 0.84 K/uL (1.2-3.4) Monocytes # (Auto) 0.61 K/uL (0.11-0.59) Eosinophils # (Auto) 0.01 K/uL (0-0.5) Basophils # (Auto) 0.03 K/uL (0-0.2) RDW Standard Deviation 55.9 fL (36.4-46.3) RDW Coefficient of Variation 16.5 % (11.5-14.5) Immature Granulocyte % (Auto) 2.6 % Immature Granulocyte # (Auto) 0.49 K/uL (0.00-0.02) Toxic Vacuolation 1+ Basophilic Stippling 1+ Prothrombin Time 14.3 SECONDS (9.0-12.0) Prothromb Time International Ratio 1.3 (0.9-1.1) Activated Partial Thromboplast Time 41.1 SECONDS (21.0-31.0) Partial Thromboplastin Ratio 1.6 Anion Gap 14.0 mmol/L (3-11) Est Creatinine Clear Calc Drug Dose 12.2 ml/min Estimated GFR () 9.9 Estimated GFR (Non- 8.5 BUN/Creatinine Ratio 9.3 (10-20) Calcium Level 7.9 mg/dl (8.5-10.1) Phosphorus Level 5.4 mg/dl (2.5-4.9) Magnesium Level 2.4 mg/dl (1.8-2.4) Test 04/08/17 12:13 04/08/17 13:14 04/08/17 14:07 04/08/17 14:57 Blood Gas Sample Site Art Line Bedside Blood Gas pH (LAB) 7.29 (7.35-7.45) Bedside Blood Gas pCO2 (LAB) 46 mmHg (35-46) Bedside Blood Gas pO2 (LAB) 77 mmHg (80-95) Bedside Blood Gas HCO3 (LAB) 23 meq/L (19-24) Bedside Blood Gas Total CO2 24 mEq/l (24-31) Bedside Blood Gas Base Excess (LAB) -4.0 meq/L (-9-1.8) Bedside Blood Gas O2 Saturation 95.0 % (90-95) Raciel Test NA Oxygen Delivery Device Ventilator Bedside Oxygen Rate (breaths/min) 26 Blood Gas Minute Ventilation 11.9 Bedside FiO2 100 % Blood Gas Tidal Volume 500 Blood Gas PEEP 15 Bedside Glucose (other) 246 mg/dl (70-99) 235 mg/dl (70-99) 230 mg/dl (70-99) Test 04/08/17 15:47 04/08/17 15:50 04/08/17 16:18 04/08/17 17:19 White Blood Count 19.09 K/uL (4.8-10.8) Red Blood Count 2.51 M/uL (4.7-6.1) Hemoglobin 7.5 g/dL (14.0-18.0) Hematocrit 22.8 % (42-52) Mean Corpuscular Volume 90.8 fL (80-100) Mean Corpuscular Hemoglobin 29.9 pg (25-34) Mean Corpuscular Hemoglobin Concent 32.9 g/dl (32-36) Platelet Count 155 K/uL (130-400) Mean Platelet Volume 11.5 fL (7.4-10.4) Neutrophils (%) (Auto) 86.9 % Lymphocytes (%) (Auto) 6.7 % Monocytes (%) (Auto) 3.2 % Eosinophils (%) (Auto) 0.2 % Basophils (%) (Auto) 0.2 % Neutrophils # (Auto) 16.61 K/uL (1.4-6.5) Lymphocytes # (Auto) 1.27 K/uL (1.2-3.4) Monocytes # (Auto) 0.61 K/uL (0.11-0.59) Eosinophils # (Auto) 0.03 K/uL (0-0.5) Basophils # (Auto) 0.04 K/uL (0-0.2) RDW Standard Deviation 54.5 fL (36.4-46.3) RDW Coefficient of Variation 16.4 % (11.5-14.5) Immature Granulocyte % (Auto) 2.8 % Immature Granulocyte # (Auto) 0.53 K/uL (0.00-0.02) Basophilic Stippling 1+ Prothrombin Time 14.7 SECONDS (9.0-12.0) Prothromb Time International Ratio 1.4 (0.9-1.1) Activated Partial Thromboplast Time 39.2 SECONDS (21.0-31.0) Partial Thromboplastin Ratio 1.5 Anion Gap 13.0 mmol/L (3-11) Est Creatinine Clear Calc Drug Dose 11.3 ml/min Estimated GFR () 8.9 Estimated GFR (Non- 7.7 BUN/Creatinine Ratio 9.2 (10-20) Calcium Level 8.0 mg/dl (8.5-10.1) Phosphorus Level 5.9 mg/dl (2.5-4.9) Magnesium Level 2.5 mg/dl (1.8-2.4) Troponin I 84.300 ng/ml (0-0.045) Bedside Glucose (other) 223 mg/dl (70-99) 203 mg/dl (70-99) Blood Gas Sample Site Art Line Bedside Blood Gas pH (LAB) 7.28 (7.35-7.45) Bedside Blood Gas pCO2 (LAB) 52 mmHg (35-46) Bedside Blood Gas pO2 (LAB) 144 mmHg (80-95) Bedside Blood Gas HCO3 (LAB) 25 meq/L (19-24) Bedside Blood Gas Total CO2 26 mEq/l (24-31) Bedside Blood Gas Base Excess (LAB) -2.0 meq/L (-9-1.8) Bedside Blood Gas O2 Saturation 99.0 % (90-95) Raciel Test NA Oxygen Delivery Device Ventilator Bedside Oxygen Rate (breaths/min) 26 Blood Gas Minute Ventilation 11.5 Bedside FiO2 100 % Blood Gas Tidal Volume 500 Blood Gas PEEP 15 Test 04/08/17 17:59 04/08/17 20:01 04/08/17 20:02 04/08/17 20:11 Bedside Glucose (other) 186 mg/dl (70-99) 142 mg/dl (70-99) Prothrombin Time 14.7 SECONDS (9.0-12.0) Prothromb Time International Ratio 1.4 (0.9-1.1) Activated Partial Thromboplast Time 42.1 SECONDS (21.0-31.0) Partial Thromboplastin Ratio 1.6 Anion Gap 10.0 mmol/L (3-11) Est Creatinine Clear Calc Drug Dose 11.3 ml/min Estimated GFR () 8.9 Estimated GFR (Non- 7.7 BUN/Creatinine Ratio 9.2 (10-20) Calcium Level 8.3 mg/dl (8.5-10.1) Phosphorus Level 5.9 mg/dl (2.5-4.9) Magnesium Level 2.3 mg/dl (1.8-2.4) White Blood Count 17.69 K/uL (4.8-10.8) Red Blood Count 2.54 M/uL (4.7-6.1) Hemoglobin 7.7 g/dL (14.0-18.0) Hematocrit 22.8 % (42-52) Mean Corpuscular Volume 89.8 fL (80-100) Mean Corpuscular Hemoglobin 30.3 pg (25-34) Mean Corpuscular Hemoglobin Concent 33.8 g/dl (32-36) Platelet Count 151 K/uL (130-400) Mean Platelet Volume 11.4 fL (7.4-10.4) Neutrophils (%) (Auto) 85.2 % Lymphocytes (%) (Auto) 7.0 % Monocytes (%) (Auto) 3.0 % Eosinophils (%) (Auto) 0.4 % Basophils (%) (Auto) 0.3 % Neutrophils # (Auto) 15.06 K/uL (1.4-6.5) Lymphocytes # (Auto) 1.24 K/uL (1.2-3.4) Monocytes # (Auto) 0.53 K/uL (0.11-0.59) Eosinophils # (Auto) 0.07 K/uL (0-0.5) Basophils # (Auto) 0.06 K/uL (0-0.2) RDW Standard Deviation 54.0 fL (36.4-46.3) RDW Coefficient of Variation 16.5 % (11.5-14.5) Immature Granulocyte % (Auto) 4.1 % Immature Granulocyte # (Auto) 0.73 K/uL (0.00-0.02) Basophilic Stippling 1+ Test 04/08/17 20:15 04/08/17 22:03 04/09/17 00:08 04/09/17 00:22 Blood Gas Sample Site Art Line Art Line Bedside Blood Gas pH (LAB) 7.33 (7.35-7.45) 7.31 (7.35-7.45) Bedside Blood Gas pCO2 (LAB) 43 mmHg (35-46) 45 mmHg (35-46) Bedside Blood Gas pO2 (LAB) 85 mmHg (80-95) 121 mmHg (80-95) Bedside Blood Gas HCO3 (LAB) 23 meq/L (19-24) 23 meq/L (19-24) Bedside Blood Gas Total CO2 25 mEq/l (24-31) 25 mEq/l (24-31) Bedside Blood Gas Base Excess (LAB) -3.0 meq/L (-9-1.8) -3.0 meq/L (-9-1.8) Bedside Blood Gas O2 Saturation 97.0 % (90-95) 99.0 % (90-95) Raciel Test NA NA Oxygen Delivery Device Ventilator Ventilator Bedside Oxygen Rate (breaths/min) 26 26 Blood Gas Minute Ventilation 12.1 12.1 Bedside FiO2 80 % 80 % Blood Gas Tidal Volume 500 500 Blood Gas PEEP 15 15 Bedside Glucose (other) 110 mg/dl (70-99) White Blood Count 16.64 K/uL (4.8-10.8) Red Blood Count 2.48 M/uL (4.7-6.1) Hemoglobin 7.7 g/dL (14.0-18.0) Hematocrit 22.3 % (42-52) Mean Corpuscular Volume 89.9 fL (80-100) Mean Corpuscular Hemoglobin 31.0 pg (25-34) Mean Corpuscular Hemoglobin Concent 34.5 g/dl (32-36) Platelet Count 163 K/uL (130-400) Mean Platelet Volume 11.7 fL (7.4-10.4) Neutrophils (%) (Auto) 82.9 % Lymphocytes (%) (Auto) 7.8 % Monocytes (%) (Auto) 3.4 % Eosinophils (%) (Auto) 0.7 % Basophils (%) (Auto) 0.3 % Neutrophils # (Auto) 13.81 K/uL (1.4-6.5) Lymphocytes # (Auto) 1.29 K/uL (1.2-3.4) Monocytes # (Auto) 0.57 K/uL (0.11-0.59) Eosinophils # (Auto) 0.11 K/uL (0-0.5) Basophils # (Auto) 0.05 K/uL (0-0.2) RDW Standard Deviation 54.5 fL (36.4-46.3) RDW Coefficient of Variation 16.4 % (11.5-14.5) Immature Granulocyte % (Auto) 4.9 % Immature Granulocyte # (Auto) 0.81 K/uL (0.00-0.02) Nucleated RBC Absolute Count (auto) 0.03 K/uL (0-0) Nucleated Red Blood Cells % 0.2 % Basophilic Stippling OCCASIONAL Prothrombin Time 14.2 SECONDS (9.0-12.0) Prothromb Time International Ratio 1.3 (0.9-1.1) Activated Partial Thromboplast Time 50.6 SECONDS (21.0-31.0) Partial Thromboplastin Ratio 1.9 Anion Gap 13.0 mmol/L (3-11) Est Creatinine Clear Calc Drug Dose 10.9 ml/min Estimated GFR () 8.6 Estimated GFR (Non- 7.4 BUN/Creatinine Ratio 9.1 (10-20) Calcium Level 8.5 mg/dl (8.5-10.1) Phosphorus Level 6.2 mg/dl (2.5-4.9) Magnesium Level 2.3 mg/dl (1.8-2.4) Test 04/09/17 00:29 04/09/17 01:05 04/09/17 01:39 04/09/17 03:06 Bedside Glucose (other) 75 mg/dl (70-99) 67 mg/dl (70-99) 106 mg/dl (70-99) 105 mg/dl (70-99) Test 04/09/17 04:00 04/09/17 04:09 04/09/17 04:18 04/09/17 05:16 White Blood Count 17.21 K/uL (4.8-10.8) Red Blood Count 2.43 M/uL (4.7-6.1) Hemoglobin 7.2 g/dL (14.0-18.0) Hematocrit 21.8 % (42-52) Mean Corpuscular Volume 89.7 fL (80-100) Mean Corpuscular Hemoglobin 29.6 pg (25-34) Mean Corpuscular Hemoglobin Concent 33.0 g/dl (32-36) Platelet Count 172 K/uL (130-400) Mean Platelet Volume 11.0 fL (7.4-10.4) Neutrophils (%) (Auto) 83.4 % Lymphocytes (%) (Auto) 7.7 % Monocytes (%) (Auto) 3.0 % Eosinophils (%) (Auto) 1.1 % Basophils (%) (Auto) 0.2 % Neutrophils # (Auto) 14.35 K/uL (1.4-6.5) Lymphocytes # (Auto) 1.33 K/uL (1.2-3.4) Monocytes # (Auto) 0.51 K/uL (0.11-0.59) Eosinophils # (Auto) 0.19 K/uL (0-0.5) Basophils # (Auto) 0.04 K/uL (0-0.2) RDW Standard Deviation 53.4 fL (36.4-46.3) RDW Coefficient of Variation 16.2 % (11.5-14.5) Immature Granulocyte % (Auto) 4.6 % Immature Granulocyte # (Auto) 0.79 K/uL (0.00-0.02) Basophilic Stippling OCCASIONAL Prothrombin Time 13.8 SECONDS (9.0-12.0) Prothromb Time International Ratio 1.3 (0.9-1.1) Activated Partial Thromboplast Time 53.9 SECONDS (21.0-31.0) Partial Thromboplastin Ratio 2.1 Anion Gap 11.0 mmol/L (3-11) Est Creatinine Clear Calc Drug Dose 11.1 ml/min Estimated GFR () 8.8 Estimated GFR (Non- 7.6 BUN/Creatinine Ratio 9.6 (10-20) Calcium Level 8.4 mg/dl (8.5-10.1) Phosphorus Level 6.5 mg/dl (2.5-4.9) Magnesium Level 2.3 mg/dl (1.8-2.4) Total Bilirubin 0.5 mg/dl (0.2-1) Direct Bilirubin 0.2 mg/dl (0-0.2) Aspartate Amino Transf (AST/SGOT) 7063 U/L (15-37) Alanine Aminotransferase (ALT/SGPT) 4259 U/L (12-78) Alkaline Phosphatase 91 U/L (45-117) Troponin I 84.200 ng/ml (0-0.045) Total Protein 5.1 gm/dl (6.4-8.2) Albumin 1.8 gm/dl (3.4-5.0) Random Vancomycin Level 13.6 mcg/ml Bedside Glucose (other) 99 mg/dl (70-99) 91 mg/dl (70-99) Blood Gas Sample Site Art Line Bedside Blood Gas pH (LAB) 7.29 (7.35-7.45) Bedside Blood Gas pCO2 (LAB) 48 mmHg (35-46) Bedside Blood Gas pO2 (LAB) 127 mmHg (80-95) Bedside Blood Gas HCO3 (LAB) 24 meq/L (19-24) Bedside Blood Gas Total CO2 25 mEq/l (24-31) Bedside Blood Gas Base Excess (LAB) -3.0 meq/L (-9-1.8) Bedside Blood Gas O2 Saturation 99.0 % (90-95) Raciel Test NA Oxygen Delivery Device Ventilator Bedside Oxygen Rate (breaths/min) 26 Blood Gas Minute Ventilation 12.5 Bedside FiO2 80 % Blood Gas Tidal Volume 500 Blood Gas PEEP 15 Test 04/09/17 06:02 04/09/17 06:59 04/09/17 07:27 04/09/17 08:10 Bedside Glucose (other) 86 mg/dl (70-99) 78 mg/dl (70-99) 77 mg/dl (70-99) Blood Gas Sample Site Art Line Bedside Blood Gas pH (LAB) 7.29 (7.35-7.45) Bedside Blood Gas pCO2 (LAB) 46 mmHg (35-46) Bedside Blood Gas pO2 (LAB) 104 mmHg (80-95) Bedside Blood Gas HCO3 (LAB) 23 meq/L (19-24) Bedside Blood Gas Total CO2 24 mEq/l (24-31) Bedside Blood Gas Base Excess (LAB) -4.0 meq/L (-9-1.8) Bedside Blood Gas O2 Saturation 98.0 % (90-95) Raciel Test NA Oxygen Delivery Device Ventilator Bedside Oxygen Rate (breaths/min) 26 Blood Gas Minute Ventilation 13 Bedside FiO2 80 % Blood Gas Tidal Volume 500 Blood Gas PEEP 15 Test 04/09/17 08:17 04/09/17 08:19 04/09/17 08:44 04/09/17 09:10 Bedside Glucose (other) 83 mg/dl (70-99) 87 mg/dl (70-99) 90 mg/dl (70-99) White Blood Count 19.64 K/uL (4.8-10.8) Red Blood Count 2.54 M/uL (4.7-6.1) Hemoglobin 7.6 g/dL (14.0-18.0) Hematocrit 22.8 % (42-52) Mean Corpuscular Volume 89.8 fL (80-100) Mean Corpuscular Hemoglobin 29.9 pg (25-34) Mean Corpuscular Hemoglobin Concent 33.3 g/dl (32-36) Platelet Count 195 K/uL (130-400) Mean Platelet Volume 11.8 fL (7.4-10.4) RDW Standard Deviation 53.3 fL (36.4-46.3) RDW Coefficient of Variation 16.1 % (11.5-14.5) Prothrombin Time 13.2 SECONDS (9.0-12.0) Prothromb Time International Ratio 1.2 (0.9-1.1) Activated Partial Thromboplast Time 56.2 SECONDS (21.0-31.0) Partial Thromboplastin Ratio 2.2 Anion Gap 14.0 mmol/L (3-11) Est Creatinine Clear Calc Drug Dose 10.9 ml/min Estimated GFR () 8.6 Estimated GFR (Non- 7.4 BUN/Creatinine Ratio 9.2 (10-20) Calcium Level 9.0 mg/dl (8.5-10.1) Phosphorus Level 6.9 mg/dl (2.5-4.9) Magnesium Level 2.3 mg/dl (1.8-2.4) Allergies Coded Allergies: No Known Allergies (Unverified , 04/06/17) Medications Current Inpatient Medications Medications (Trade) Dose Ordered Sig/Brennan Route Start Time Stop Time Status Last Admin Dose Admin Amlodipine Besylate (Norvasc Tab) 5 mg QAM PO 04/07/17 09:00 05/07/17 08:59 Future Hold 04/07/17 07:50 5 MG Diphenhydramine HCl (Benadryl Cap) 25 mg Q8H PRN PO 04/07/17 00:00 05/07/17 00:00 Future Hold Metoprolol Succinate (Toprol Xl Tab) 50 mg QPM PO 04/07/17 21:00 05/07/17 20:59 Future Hold 04/07/17 19:47 50 MG Sodium Bicarbonate (Sodium Bicarbonate Tab) 650 mg BIDM PO 04/07/17 07:30 05/07/17 07:59 04/09/17 07:33 650 MG Vitamin B Complex/ Vit C/Folic Acid (Nephrocaps) 1 cap DAILY PO 04/07/17 09:00 05/07/17 08:59 Future Hold 04/07/17 07:50 1 CAP Al Hydrox/Mg Hydrox/Simethicone (Maalox Max Susp) 15 ml Q4H PRN PO 04/07/17 00:00 05/07/17 00:00 Magnesium Hydroxide (Milk Of Magnesia Susp) 30 ml Q12H PRN PO 04/07/17 00:00 05/07/17 00:00 Cholestyramine Resin (Questran Powder Light) 4 gm BID@10,22 PO 04/07/17 22:00 05/07/17 21:59 Future Hold Vancomycin HCl (Consult) 1 ea UD PRN N/A 04/07/17 19:15 05/07/17 19:14 Piperacillin Sod/ Tazobactam Sod (Consult) 1 ea UD PRN N/A 04/07/17 19:15 05/07/17 19:14 Piperacillin Sod/ Tazobactam Sod 3.375 gm/Dextrose 115 ml @ 28.75 mls/ hr Q12H IV 04/08/17 02:00 04/15/17 01:59 04/09/17 01:39 28.75 MLS/HR Artificial Tears (Lacri-Lube Oph Oint) 1 appln Q2H PRN OPB 04/07/17 23:00 05/07/17 22:59 04/08/17 06:14 1 APPLN Buspirone HCl (BusPAR TAB) 60 mg ONE PRN NG 04/07/17 23:00 05/07/17 22:59 Ioversol (Optiray 320) 100 ml UD PRN IV 04/07/17 23:15 04/11/17 23:14 Insulin Aspart (novoLOG ASPART) SLIDING SCALE HS UT 04/08/17 08:00 05/08/17 07:59 Insulin Human Regular 250 units/ Sodium Chloride 252.5 ml @ 0 mls/hr DAILY@1130 IV 04/08/17 00:15 05/08/17 00:14 04/08/17 11:46 8.9 MLS/HR Amiodarone HCL/ Dextrose 200 ml @ 16.7 mls/hr [id number] IV 04/08/17 02:30 05/08/17 02:29 04/09/17 01:39 16.7 MLS/HR Pantoprazole Sodium 40 mg/ Syringe 10 ml @ 5 mls/min DAILY@11 IV 04/08/17 11:00 05/08/17 10:59 04/08/17 09:59 5 MLS/MIN Ipratropium [place] (Atrovent Hfa Inhaler) 4 puffs QIDR INH 04/08/17 12:00 05/08/17 11:59 04/09/17 07:56 4 PUFFS Albuterol (Ventolin Hfa Inhaler) 4 puffs QIDR INH 04/08/17 12:00 05/08/17 11:59 04/09/17 07:56 4 PUFFS Miscellaneous Information (Consult Glycemic Management Pharmacy) 1 ea UD PRN N/A 04/08/17 13:45 05/08/17 13:44 Doxycycline Hyclate 100 mg/ Dextrose 110 ml @ 55 mls/hr Q12H IV 04/08/17 14:00 04/15/17 13:59 04/09/17 01:39 55 MLS/HR Phenylephrine HCl 80 mg/Dextrose 508 ml @ 0 mls/hr Q0M PRN IV 04/08/17 14:45 05/08/17 14:44 04/09/17 08:04 48.7 MLS/HR Heparin Sodium/ Dextrose 500 ml @ 20 mls/hr Q24H PRN IV 04/08/17 18:15 05/08/17 18:14 04/08/17 18:21 20 MLS/HR Heparin Sodium (Porcine) (Heparin 10 Unit/ ml 5 ml Flush) 5 ml PRN PRN FLUSH 04/09/17 00:45 05/09/17 00:44 Vancomycin HCl 750 mg/Sodium Chloride 165 ml @ 75 mls/hr NOW ONCE IV 04/09/17 07:45 04/09/17 09:56 04/09/17 07:58 75 MLS/HR Fentanyl Citrate (Fentanyl Inj) 25 mcg Q1H PRN IV 04/09/17 08:45 04/23/17 08:44 04/09/17 08:54 25 MCG Midazolam HCl (Versed Inj) 1 mg Q1H PRN IV 04/09/17 08:45 05/09/17 08:44 04/09/17 08:53 1 MG Acetaminophen 650 mg/Empty Bag 65 ml @ 260 mls/hr Q6H PRN IV 04/09/17 08:45 05/09/17 08:44 Epoetin Victor Hugo (Procrit Inj) 10,000 units 1000 IV. 04/09/17 10:00 04/09/17 16:00 Paricalcitol (Zemplar Inj) 3 mcg 1000 IV. 04/09/17 10:00 04/09/17 16:00 Heparin Sodium (Porcine) (No Heparin In Dialysis) 1 ea ONE ONCE N/A 04/09/17 09:15 04/09/17 09:16 Impression (1) Pneumonia (2) Anemia (3) ESRD on hemodialysis (4) Diabetes mellitus (5) Diarrhea Recommendations END STAGE RENAL DISEASE: -- CXR film reviewed today. Patient has persistent bibasilar pulmonary infiltrates. He appears to have progressive pulmonary edema -- I&O show that patient is 7 L volume positive since admission -- Will provide HD today for ultrafiltration. Orders placed in EMR and HD RN notified -- Recommend avoiding Demerol due to accumulation of metabolites in ESRD CV: -- Patient is s/p V-fib arrest. ECG was c/w prolonged QTc 604 msec. ID: -- Patient has multifocal pneumonia -- Avoid Quinolone antibiotics due to prolonged QT -- Currently on Vanco / Zosyn ANEMIA: -- Required EGD w/ clipping of Dieulafoy lesion 03/11 -- Consent for blood transfusion obtained from patient's son Ed and placed on chart. Will transfuse 2 U PRBC at start of HD this am 45 minutes critical care time provided. This included time reviewing chart, examining patient, discussing care w/ ICU team and discussing plan of care w/ family
--- NOTE | 2017-04-09 09:57 | Critical Care Progress Note ---
Critical Care Progress Note Date of Service Apr 09, 2017. Attending Dr. Torres Subjective He is intubated and supported in the ICU. Some increased agitation noted. Requiring HD support. Reviewed situation with morning team and vent modifications completed with respiratory. The cooling protocol is being reversed today. Objective VITAL SIGNS - Vital signs and nursing notes were reviewed. GENERAL - 81-year-old male. Intubated and sedated. EYES - Fixed and very sluggish. EARS - No deformities of external structures noted on gross examination bilaterally. NOSE - Midline and without cyanosis. MOUTH/OROPHARYNX - ET Tube in place. NECK - Supple to palpation. LUNGS - Chest wall symmetric without accessory muscle use, intercostals retractions, or central cyanosis. Decreased breath sounds at the bases bilaterally. CARDIAC - RRR with S1/S2. No murmur, rubs, or gallops appreciated. ABDOMEN - Abdominal contour obese without pulsations or visible masses. BS hypoactive all four quadrants. No palpable masses, hepatosplenomegaly, or ascites noted. NEUROLOGIC - Intubated and Sedated. RASS -5 Current SOFA Score SOFA Score Response (Comments) Value PaO2/FiO2 (mmHg) < 100 4 Platelets (x10) > 150 0 Bilirubin (mg/dL) < 1.2 0 Gamal Coma Score < 6 4 Level of Hypotension Dopamine > 5 mcq or Epi < 0.1 mcq 3 Creatinine (mg/dL) > 5.0 4 Total 15 Assessment & Plan (1) Cardiac arrest General supportive measures continue. (2) Lactic acidosis improved (3) Respiratory failure Reduced the oxygen and modified the positive pressure with goal to assist with right heart filling. (4) Diarrhea resolved (5) Right lower lobe pneumonia general support and rx in place. (6) Right rib fracture (7) ESRD on hemodialysis (8) Diabetes mellitus Insulin and general support--should improve with rewarming. Consults & Procedures Consultants: Dr. Peraza: Nephrology Dr. Vazquez: Neurology Dr. Cabrera: Cardiology Procedures: RIGHT Radial Arterial Line LEFT Femoral Central Venous Line Data Medications: Current Inpatient Medications Medications (Trade) Dose Ordered Sig/Brennan Route Start Time Stop Time Status Last Admin Dose Admin Amlodipine Besylate (Norvasc Tab) 5 mg QAM PO 04/07/17 09:00 05/07/17 08:59 Future Hold 04/07/17 07:50 5 MG Diphenhydramine HCl (Benadryl Cap) 25 mg Q8H PRN PO 04/07/17 00:00 05/07/17 00:00 Future Hold Metoprolol Succinate (Toprol Xl Tab) 50 mg QPM PO 04/07/17 21:00 05/07/17 20:59 Future Hold 04/07/17 19:47 50 MG Vitamin B Complex/ Vit C/Folic Acid (Nephrocaps) 1 cap DAILY PO 04/07/17 09:00 05/07/17 08:59 Future Hold 04/07/17 07:50 1 CAP Al Hydrox/Mg Hydrox/Simethicone (Maalox Max Susp) 15 ml Q4H PRN PO 04/07/17 00:00 05/07/17 00:00 Magnesium Hydroxide (Milk Of Magnesia Susp) 30 ml Q12H PRN PO 04/07/17 00:00 05/07/17 00:00 Cholestyramine Resin (Questran Powder Light) 4 gm BID@10,22 PO 04/07/17 22:00 05/07/17 21:59 Future Hold Vancomycin HCl (Consult) 1 ea UD PRN N/A 04/07/17 19:15 05/07/17 19:14 Piperacillin Sod/ Tazobactam Sod (Consult) 1 ea UD PRN N/A 04/07/17 19:15 05/07/17 19:14 Piperacillin Sod/ Tazobactam Sod 3.375 gm/Dextrose 115 ml @ 28.75 mls/ hr Q12H IV 04/08/17 02:00 04/15/17 01:59 04/09/17 01:39 28.75 MLS/HR Artificial Tears (Lacri-Lube Oph Oint) 1 appln Q2H PRN OPB 04/07/17 23:00 05/07/17 22:59 04/08/17 06:14 1 APPLN Buspirone HCl (BusPAR TAB) 60 mg ONE PRN NG 04/07/17 23:00 05/07/17 22:59 Ioversol (Optiray 320) 100 ml UD PRN IV 04/07/17 23:15 04/11/17 23:14 Insulin Aspart (novoLOG ASPART) SLIDING SCALE PCHS SC 04/08/17 08:00 05/08/17 07:59 Insulin Human Regular 250 units/ Sodium Chloride 252.5 ml @ 0 mls/hr DAILY@1130 IV 04/08/17 00:15 05/08/17 00:14 04/08/17 11:46 8.9 MLS/HR Amiodarone HCL/ Dextrose 200 ml @ 16.7 mls/hr [id number] IV 04/08/17 02:30 05/08/17 02:29 04/09/17 01:39 16.7 MLS/HR Pantoprazole Sodium 40 mg/ Syringe 10 ml @ 5 mls/min DAILY@11 IV 04/08/17 11:00 05/08/17 10:59 04/08/17 09:59 5 MLS/MIN Ipratropium [place] (Atrovent Hfa Inhaler) 4 puffs QIDR INH 04/08/17 12:00 05/08/17 11:59 04/09/17 07:56 4 PUFFS Albuterol (Ventolin Hfa Inhaler) 4 puffs QIDR INH 04/08/17 12:00 05/08/17 11:59 04/09/17 07:56 4 PUFFS Miscellaneous Information (Consult Glycemic Management Pharmacy) 1 ea UD PRN N/A 04/08/17 13:45 05/08/17 13:44 Doxycycline Hyclate 100 mg/ Dextrose 110 ml @ 55 mls/hr Q12H IV 04/08/17 14:00 04/15/17 13:59 04/09/17 01:39 55 MLS/HR Phenylephrine HCl 80 mg/Dextrose 508 ml @ 0 mls/hr Q0M PRN IV 04/08/17 14:45 05/08/17 14:44 04/09/17 08:04 48.7 MLS/HR Heparin Sodium/ Dextrose 500 ml @ 20 mls/hr Q24H PRN IV 04/08/17 18:15 05/08/17 18:14 04/08/17 18:21 20 MLS/HR Heparin Sodium (Porcine) (Heparin 10 Unit/ ml 5 ml Flush) 5 ml PRN PRN FLUSH 04/09/17 00:45 05/09/17 00:44 Vancomycin HCl 750 mg/Sodium Chloride 165 ml @ 75 mls/hr NOW ONCE IV 04/09/17 07:45 04/09/17 09:56 04/09/17 07:58 75 MLS/HR Fentanyl Citrate (Fentanyl Inj) 25 mcg Q1H PRN IV 04/09/17 08:45 04/23/17 08:44 04/09/17 08:54 25 MCG Midazolam HCl (Versed Inj) 1 mg Q1H PRN IV 04/09/17 08:45 05/09/17 08:44 04/09/17 08:53 1 MG Acetaminophen 650 mg/Empty Bag 65 ml @ 260 mls/hr Q6H PRN IV 04/09/17 08:45 05/09/17 08:44 Epoetin Victor Hugo (Procrit Inj) 10,000 units 1000 IV. 04/09/17 10:00 04/09/17 16:00 Paricalcitol (Zemplar Inj) 3 mcg 1000 IV. 04/09/17 10:00 04/09/17 16:00 I & O: 24-Hour Column 04/10/17 08:00 Output Total 0 ml Balance 0 ml Vital Signs: Date Time Temp Pulse Resp B/P (MAP) Pulse Ox O2 Delivery O2 Flow Rate FiO2 04/09/17 09:00 36.1 68 20 73/42 (52) 96 Mechanical Ventilator 50 89/34 (52) 04/09/17 08:50 50 04/09/17 08:00 100 Mechanical Ventilator 80 04/09/17 08:00 80 04/09/17 08:00 36.0 76 32 94/52 (66) 100 Mechanical Ventilator 80 104/47 (66) 04/09/17 07:56 80 04/09/17 07:00 35.7 74 33 100/59 (73) 100 Mechanical Ventilator 80 124/51 (75) 04/09/17 06:00 35.3 67 28 104/45 (64) 100 Mechanical Ventilator 80 98/57 (71) 04/09/17 05:28 80 04/09/17 05:00 35.1 65 26 98/57 (71) 100 Mechanical Ventilator 80 98/46 (63) 04/09/17 04:00 100 Mechanical Ventilator 80 04/09/17 04:00 80 04/09/17 04:00 35.2 63 27 104/47 (66) 100 Mechanical Ventilator 80 04/09/17 03:00 34.9 67 30 127/53 (77) 100 Mechanical Ventilator 80 121/63 (82) 04/09/17 02:15 80 04/09/17 02:00 35.1 64 26 106/47 (66) 100 Mechanical Ventilator 80 04/09/17 01:00 35.2 63 26 100/59 (73) 100 Mechanical Ventilator 80 101/49 (66) 04/09/17 00:01 35.3 63 26 109/49 (69) 100 Mechanical Ventilator 80 94/54 (67) 04/08/17 23:59 100 Mechanical Ventilator 80 04/08/17 23:59 80 04/08/17 23:00 35.1 62 26 112/58 (76) 100 Mechanical Ventilator 80 109/49 (69) 04/08/17 22:48 80 04/08/17 22:00 35.1 64 26 109/57 (74) 100 Mechanical Ventilator 80 114/46 (68) 04/08/17 21:00 Mechanical Ventilator 80 04/08/17 21:00 35.1 65 26 119/47 (71) 100 Mechanical Ventilator 80 04/08/17 20:00 Mechanical Ventilator 80 04/08/17 20:00 35.1 65 26 122/45 (70) 100 Mechanical Ventilator 80 04/08/17 20:00 80 04/08/17 20:00 Mechanical Ventilator 80 04/08/17 19:48 80 04/08/17 19:00 35.1 62 26 109/42 (64) 100 Mechanical Ventilator 04/08/17 19:00 Mechanical Ventilator 80 04/08/17 18:00 Mechanical Ventilator 80 04/08/17 18:00 34.9 67 26 110/53 (72) 100 Mechanical Ventilator 80 122/36 (64) 04/08/17 17:07 80 04/08/17 17:00 Mechanical Ventilator 80 04/08/17 17:00 35.1 62 26 99/53 (68) 100 Mechanical Ventilator 80 100/36 (57) 04/08/17 16:00 100 04/08/17 16:00 35.1 64 26 110/59 (76) 100 Mechanical Ventilator 100 110/42 (64) 04/08/17 16:00 Mechanical Ventilator 04/08/17 16:00 Mechanical Ventilator 100 04/08/17 15:00 35.1 64 26 129/62 (84) 100 Mechanical Ventilator 100 118/45 (69) 04/08/17 14:34 35.1 04/08/17 14:16 100 04/08/17 14:00 35.1 63 26 116/61 (79) 99 Mechanical Ventilator 100 112/47 (68) 04/08/17 13:15 35.1 04/08/17 13:00 35.1 63 26 118/61 (80) 100 Mechanical Ventilator 100 117/44 (68) 04/08/17 13:00 35.1 04/08/17 12:45 35.1 04/08/17 12:00 100 04/08/17 12:00 100 Mechanical Ventilator 100 04/08/17 12:00 35.1 61 26 110/64 (79) 100 Mechanical Ventilator 100 110/40 (63) 04/08/17 11:45 35.1 04/08/17 11:32 100 04/08/17 11:30 35.1 04/08/17 11:15 35.1 04/08/17 11:00 35.1 04/08/17 11:00 35.1 62 26 109/56 (73) 99 Mechanical Ventilator 100 105/39 (61) 04/08/17 10:45 35.1 04/08/17 10:15 35.1 04/08/17 10:00 35.1 63 26 113/63 (80) 97 Mechanical Ventilator 100 104/39 (60) Laboratory Results: Last 24 Hours Test 04/08/17 10:06 04/08/17 11:04 04/08/17 11:47 04/08/17 11:55 Bedside Glucose (other) 271 mg/dl 264 mg/dl 254 mg/dl White Blood Count 19.07 K/uL Red Blood Count 2.53 M/uL Hemoglobin 7.4 g/dL Hematocrit 23.1 % Mean Corpuscular Volume 91.3 fL Mean Corpuscular Hemoglobin 29.2 pg Mean Corpuscular Hemoglobin Concent 32.0 g/dl Platelet Count 162 K/uL Mean Platelet Volume 11.5 fL Neutrophils (%) (Auto) 89.5 % Lymphocytes (%) (Auto) 4.4 % Monocytes (%) (Auto) 3.2 % Eosinophils (%) (Auto) 0.1 % Basophils (%) (Auto) 0.2 % Neutrophils # (Auto) 17.09 K/uL Lymphocytes # (Auto) 0.84 K/uL Monocytes # (Auto) 0.61 K/uL Eosinophils # (Auto) 0.01 K/uL Basophils # (Auto) 0.03 K/uL RDW Standard Deviation 55.9 fL RDW Coefficient of Variation 16.5 % Immature Granulocyte % (Auto) 2.6 % Immature Granulocyte # (Auto) 0.49 K/uL Toxic Vacuolation 1+ Basophilic Stippling 1+ Prothrombin Time 14.3 SECONDS Prothromb Time International Ratio 1.3 Activated Partial Thromboplast Time 41.1 SECONDS Partial Thromboplastin Ratio 1.6 Sodium Level 134 mmol/L Potassium Level 3.4 mmol/L Chloride Level 98 mmol/L Carbon Dioxide Level 22 mmol/L Anion Gap 14.0 mmol/L Blood Urea Nitrogen 53 mg/dl Creatinine 5.80 mg/dl Est Creatinine Clear Calc Drug Dose 12.2 ml/min Estimated GFR () 9.9 Estimated GFR (Non- 8.5 BUN/Creatinine Ratio 9.3 Random Glucose 244 mg/dl Calcium Level 7.9 mg/dl Phosphorus Level 5.4 mg/dl Magnesium Level 2.4 mg/dl Test 04/08/17 12:13 04/08/17 13:14 04/08/17 14:07 04/08/17 14:57 Blood Gas Sample Site Art Line Bedside Blood Gas pH (LAB) 7.29 Bedside Blood Gas pCO2 (LAB) 46 mmHg Bedside Blood Gas pO2 (LAB) 77 mmHg Bedside Blood Gas HCO3 (LAB) 23 meq/L Bedside Blood Gas Total CO2 24 mEq/l Bedside Blood Gas Base Excess (LAB) -4.0 meq/L Bedside Blood Gas O2 Saturation 95.0 % Raciel Test NA Oxygen Delivery Device Ventilator Bedside Oxygen Rate (breaths/min) 26 Blood Gas Minute Ventilation 11.9 Bedside FiO2 100 % Blood Gas Tidal Volume 500 Blood Gas PEEP 15 Bedside Glucose (other) 246 mg/dl 235 mg/dl 230 mg/dl Test 04/08/17 15:47 04/08/17 15:50 04/08/17 16:18 04/08/17 17:19 White Blood Count 19.09 K/uL Red Blood Count 2.51 M/uL Hemoglobin 7.5 g/dL Hematocrit 22.8 % Mean Corpuscular Volume 90.8 fL Mean Corpuscular Hemoglobin 29.9 pg Mean Corpuscular Hemoglobin Concent 32.9 g/dl Platelet Count 155 K/uL Mean Platelet Volume 11.5 fL Neutrophils (%) (Auto) 86.9 % Lymphocytes (%) (Auto) 6.7 % Monocytes (%) (Auto) 3.2 % Eosinophils (%) (Auto) 0.2 % Basophils (%) (Auto) 0.2 % Neutrophils # (Auto) 16.61 K/uL Lymphocytes # (Auto) 1.27 K/uL Monocytes # (Auto) 0.61 K/uL Eosinophils # (Auto) 0.03 K/uL Basophils # (Auto) 0.04 K/uL RDW Standard Deviation 54.5 fL RDW Coefficient of Variation 16.4 % Immature Granulocyte % (Auto) 2.8 % Immature Granulocyte # (Auto) 0.53 K/uL Basophilic Stippling 1+ Prothrombin Time 14.7 SECONDS Prothromb Time International Ratio 1.4 Activated Partial Thromboplast Time 39.2 SECONDS Partial Thromboplastin Ratio 1.5 Sodium Level 132 mmol/L Potassium Level 3.4 mmol/L Chloride Level 95 mmol/L Carbon Dioxide Level 24 mmol/L Anion Gap 13.0 mmol/L Blood Urea Nitrogen 58 mg/dl Creatinine 6.30 mg/dl Est Creatinine Clear Calc Drug Dose 11.3 ml/min Estimated GFR () 8.9 Estimated GFR (Non- 7.7 BUN/Creatinine Ratio 9.2 Random Glucose 220 mg/dl Calcium Level 8.0 mg/dl Phosphorus Level 5.9 mg/dl Magnesium Level 2.5 mg/dl Troponin I 84.300 ng/ml Bedside Glucose (other) 223 mg/dl 203 mg/dl Blood Gas Sample Site Art Line Bedside Blood Gas pH (LAB) 7.28 Bedside Blood Gas pCO2 (LAB) 52 mmHg Bedside Blood Gas pO2 (LAB) 144 mmHg Bedside Blood Gas HCO3 (LAB) 25 meq/L Bedside Blood Gas Total CO2 26 mEq/l Bedside Blood Gas Base Excess (LAB) -2.0 meq/L Bedside Blood Gas O2 Saturation 99.0 % Raciel Test NA Oxygen Delivery Device Ventilator Bedside Oxygen Rate (breaths/min) 26 Blood Gas Minute Ventilation 11.5 Bedside FiO2 100 % Blood Gas Tidal Volume 500 Blood Gas PEEP 15 Test 04/08/17 17:59 04/08/17 20:01 04/08/17 20:02 04/08/17 20:11 Bedside Glucose (other) 186 mg/dl 142 mg/dl Prothrombin Time 14.7 SECONDS Prothromb Time International Ratio 1.4 Activated Partial Thromboplast Time 42.1 SECONDS Partial Thromboplastin Ratio 1.6 Sodium Level 131 mmol/L Potassium Level 3.3 mmol/L Chloride Level 95 mmol/L Carbon Dioxide Level 26 mmol/L Anion Gap 10.0 mmol/L Blood Urea Nitrogen 59 mg/dl Creatinine 6.30 mg/dl Est Creatinine Clear Calc Drug Dose 11.3 ml/min Estimated GFR () 8.9 Estimated GFR (Non- 7.7 BUN/Creatinine Ratio 9.2 Random Glucose 141 mg/dl Calcium Level 8.3 mg/dl Phosphorus Level 5.9 mg/dl Magnesium Level 2.3 mg/dl White Blood Count 17.69 K/uL Red Blood Count 2.54 M/uL Hemoglobin 7.7 g/dL Hematocrit 22.8 % Mean Corpuscular Volume 89.8 fL Mean Corpuscular Hemoglobin 30.3 pg Mean Corpuscular Hemoglobin Concent 33.8 g/dl Platelet Count 151 K/uL Mean Platelet Volume 11.4 fL Neutrophils (%) (Auto) 85.2 % Lymphocytes (%) (Auto) 7.0 % Monocytes (%) (Auto) 3.0 % Eosinophils (%) (Auto) 0.4 % Basophils (%) (Auto) 0.3 % Neutrophils # (Auto) 15.06 K/uL Lymphocytes # (Auto) 1.24 K/uL Monocytes # (Auto) 0.53 K/uL Eosinophils # (Auto) 0.07 K/uL Basophils # (Auto) 0.06 K/uL RDW Standard Deviation 54.0 fL RDW Coefficient of Variation 16.5 % Immature Granulocyte % (Auto) 4.1 % Immature Granulocyte # (Auto) 0.73 K/uL Basophilic Stippling 1+ Test 04/08/17 20:15 04/08/17 22:03 04/09/17 00:08 04/09/17 00:22 Blood Gas Sample Site Art Line Art Line Bedside Blood Gas pH (LAB) 7.33 7.31 Bedside Blood Gas pCO2 (LAB) 43 mmHg 45 mmHg Bedside Blood Gas pO2 (LAB) 85 mmHg 121 mmHg Bedside Blood Gas HCO3 (LAB) 23 meq/L 23 meq/L Bedside Blood Gas Total CO2 25 mEq/l 25 mEq/l Bedside Blood Gas Base Excess (LAB) -3.0 meq/L -3.0 meq/L Bedside Blood Gas O2 Saturation 97.0 % 99.0 % Raciel Test NA NA Oxygen Delivery Device Ventilator Ventilator Bedside Oxygen Rate (breaths/min) 26 26 Blood Gas Minute Ventilation 12.1 12.1 Bedside FiO2 80 % 80 % Blood Gas Tidal Volume 500 500 Blood Gas PEEP 15 15 Bedside Glucose (other) 110 mg/dl White Blood Count 16.64 K/uL Red Blood Count 2.48 M/uL Hemoglobin 7.7 g/dL Hematocrit 22.3 % Mean Corpuscular Volume 89.9 fL Mean Corpuscular Hemoglobin 31.0 pg Mean Corpuscular Hemoglobin Concent 34.5 g/dl Platelet Count 163 K/uL Mean Platelet Volume 11.7 fL Neutrophils (%) (Auto) 82.9 % Lymphocytes (%) (Auto) 7.8 % Monocytes (%) (Auto) 3.4 % Eosinophils (%) (Auto) 0.7 % Basophils (%) (Auto) 0.3 % Neutrophils # (Auto) 13.81 K/uL Lymphocytes # (Auto) 1.29 K/uL Monocytes # (Auto) 0.57 K/uL Eosinophils # (Auto) 0.11 K/uL Basophils # (Auto) 0.05 K/uL RDW Standard Deviation 54.5 fL RDW Coefficient of Variation 16.4 % Immature Granulocyte % (Auto) 4.9 % Immature Granulocyte # (Auto) 0.81 K/uL Nucleated RBC Absolute Count (auto) 0.03 K/uL Nucleated Red Blood Cells % 0.2 % Basophilic Stippling OCCASIONAL Prothrombin Time 14.2 SECONDS Prothromb Time International Ratio 1.3 Activated Partial Thromboplast Time 50.6 SECONDS Partial Thromboplastin Ratio 1.9 Sodium Level 130 mmol/L Potassium Level 3.3 mmol/L Chloride Level 94 mmol/L Carbon Dioxide Level 23 mmol/L Anion Gap 13.0 mmol/L Blood Urea Nitrogen 59 mg/dl Creatinine 6.50 mg/dl Est Creatinine Clear Calc Drug Dose 10.9 ml/min Estimated GFR () 8.6 Estimated GFR (Non- 7.4 BUN/Creatinine Ratio 9.1 Random Glucose 76 mg/dl Calcium Level 8.5 mg/dl Phosphorus Level 6.2 mg/dl Magnesium Level 2.3 mg/dl Test 04/09/17 00:29 04/09/17 01:05 04/09/17 01:39 04/09/17 03:06 Bedside Glucose (other) 75 mg/dl 67 mg/dl 106 mg/dl 105 mg/dl Test 04/09/17 04:00 04/09/17 04:09 04/09/17 04:18 04/09/17 05:16 White Blood Count 17.21 K/uL Red Blood Count 2.43 M/uL Hemoglobin 7.2 g/dL Hematocrit 21.8 % Mean Corpuscular Volume 89.7 fL Mean Corpuscular Hemoglobin 29.6 pg Mean Corpuscular Hemoglobin Concent 33.0 g/dl Platelet Count 172 K/uL Mean Platelet Volume 11.0 fL Neutrophils (%) (Auto) 83.4 % Lymphocytes (%) (Auto) 7.7 % Monocytes (%) (Auto) 3.0 % Eosinophils (%) (Auto) 1.1 % Basophils (%) (Auto) 0.2 % Neutrophils # (Auto) 14.35 K/uL Lymphocytes # (Auto) 1.33 K/uL Monocytes # (Auto) 0.51 K/uL Eosinophils # (Auto) 0.19 K/uL Basophils # (Auto) 0.04 K/uL RDW Standard Deviation 53.4 fL RDW Coefficient of Variation 16.2 % Immature Granulocyte % (Auto) 4.6 % Immature Granulocyte # (Auto) 0.79 K/uL Basophilic Stippling OCCASIONAL Prothrombin Time 13.8 SECONDS Prothromb Time International Ratio 1.3 Activated Partial Thromboplast Time 53.9 SECONDS Partial Thromboplastin Ratio 2.1 Sodium Level 128 mmol/L Potassium Level 3.3 mmol/L Chloride Level 93 mmol/L Carbon Dioxide Level 24 mmol/L Anion Gap 11.0 mmol/L Blood Urea Nitrogen 61 mg/dl Creatinine 6.40 mg/dl Est Creatinine Clear Calc Drug Dose 11.1 ml/min Estimated GFR () 8.8 Estimated GFR (Non- 7.6 BUN/Creatinine Ratio 9.6 Random Glucose 99 mg/dl Calcium Level 8.4 mg/dl Phosphorus Level 6.5 mg/dl Magnesium Level 2.3 mg/dl Total Bilirubin 0.5 mg/dl Direct Bilirubin 0.2 mg/dl Aspartate Amino Transf (AST/SGOT) 7063 U/L Alanine Aminotransferase (ALT/SGPT) 4259 U/L Alkaline Phosphatase 91 U/L Troponin I 84.200 ng/ml Total Protein 5.1 gm/dl Albumin 1.8 gm/dl Random Vancomycin Level 13.6 mcg/ml Bedside Glucose (other) 99 mg/dl 91 mg/dl Blood Gas Sample Site Art Line Bedside Blood Gas pH (LAB) 7.29 Bedside Blood Gas pCO2 (LAB) 48 mmHg Bedside Blood Gas pO2 (LAB) 127 mmHg Bedside Blood Gas HCO3 (LAB) 24 meq/L Bedside Blood Gas Total CO2 25 mEq/l Bedside Blood Gas Base Excess (LAB) -3.0 meq/L Bedside Blood Gas O2 Saturation 99.0 % Raciel Test NA Oxygen Delivery Device Ventilator Bedside Oxygen Rate (breaths/min) 26 Blood Gas Minute Ventilation 12.5 Bedside FiO2 80 % Blood Gas Tidal Volume 500 Blood Gas PEEP 15 Test 04/09/17 06:02 04/09/17 06:59 04/09/17 07:27 04/09/17 08:10 Bedside Glucose (other) 86 mg/dl 78 mg/dl 77 mg/dl Blood Gas Sample Site Art Line Bedside Blood Gas pH (LAB) 7.29 Bedside Blood Gas pCO2 (LAB) 46 mmHg Bedside Blood Gas pO2 (LAB) 104 mmHg Bedside Blood Gas HCO3 (LAB) 23 meq/L Bedside Blood Gas Total CO2 24 mEq/l Bedside Blood Gas Base Excess (LAB) -4.0 meq/L Bedside Blood Gas O2 Saturation 98.0 % Raciel Test NA Oxygen Delivery Device Ventilator Bedside Oxygen Rate (breaths/min) 26 Blood Gas Minute Ventilation 13 Bedside FiO2 80 % Blood Gas Tidal Volume 500 Blood Gas PEEP 15 Test 04/09/17 08:17 04/09/17 08:19 04/09/17 08:44 04/09/17 09:10 Bedside Glucose (other) 83 mg/dl 87 mg/dl 90 mg/dl White Blood Count 19.64 K/uL Red Blood Count 2.54 M/uL Hemoglobin 7.6 g/dL Hematocrit 22.8 % Mean Corpuscular Volume 89.8 fL Mean Corpuscular Hemoglobin 29.9 pg Mean Corpuscular Hemoglobin Concent 33.3 g/dl Platelet Count 195 K/uL Mean Platelet Volume 11.8 fL RDW Standard Deviation 53.3 fL RDW Coefficient of Variation 16.1 % Prothrombin Time 13.2 SECONDS Prothromb Time International Ratio 1.2 Activated Partial Thromboplast Time 56.2 SECONDS Partial Thromboplastin Ratio 2.2 Sodium Level 128 mmol/L Potassium Level 3.7 mmol/L Chloride Level 91 mmol/L Carbon Dioxide Level 23 mmol/L Anion Gap 14.0 mmol/L Blood Urea Nitrogen 60 mg/dl Creatinine 6.50 mg/dl Est Creatinine Clear Calc Drug Dose 10.9 ml/min Estimated GFR () 8.6 Estimated GFR (Non- 7.4 BUN/Creatinine Ratio 9.2 Random Glucose 84 mg/dl Calcium Level 9.0 mg/dl Phosphorus Level 6.9 mg/dl Magnesium Level 2.3 mg/dl Problem Qualifiers (1) Respiratory failure: Chronicity: acute Respiratory failure complication: hypoxia Qualified Codes : J96.01 - Acute respiratory failure with hypoxia
[2017-04-09] MEDS ORDERED: EPOETIN ALFA 10,000 UNITS/ML VIAL IV. SCH (10:00)
[2017-04-09] MEDS ORDERED: PARICALCITOL 5 MCG/ML VIAL (ZEMPLAR) IV. SCH (10:00)
[2017-04-09 10:17] LABS: BASO ABS # 0.18 K/uL (0-0.2); BASOPHIL % 0.9 % (0-2); COMPLETE YES; LYMPH ABS # 1.18 K/uL (1.2-3.4); META ABS # 0.18 K/uL (0-0); METAMYELOCYTE % 0.9 %; MYELOCYTE % 1.7 %; NEUTROPHILS % 83.6 %
--- NOTE | 2017-04-09 10:49 | Clinical Documentation Query ---
CLINICAL DOCUMENTATION QUERY Dr. COTTER, In your clinical opinion is this patient being managed for: (x ) Acute combined systolic and diastolic CHF ( ) Acute pulmonary edema (acuity must be documented for proper coding of this diagnosis) ( ) Not Agree ( ) Other explanation of clinical findings (Please Explain) ( ) Unable to determine (Please Define) ( ) Need to Discuss The medical record reflects the following clinical findings, treatment, and risk factors. Clinical Indicators: 81 yo male presenting with constant dyspnea and having missed 2 successive dialysis treatments. Pt was given IV lasix initially x 1 dose. Nephrology progress note on 04/09 indicates pt with progressive pulmonary edema. Also noted to be 7L + intake since being admitted. CXR on 04/09 showed slightly progressive congestive failure versus pulmonary edema. ECHO showed EF of 30-35% and grade II diastolic dysfunction Treatment:ICU, HD treatment for ultrafiltration, nephrology and cardiology care, I/O, daily wts, Risk Factors:age, ESRD, NSTEMI, positive I/O status, pneumonia, respiratory failure, V fib/Cardiac arrest Please clarify and document your clinical opinion in the progress notes and discharge summary. Terms such as "probable", "suspected", "likely", "questionable", "possible", or "still to be ruled out" are acceptable. IF IN AGREEMENT, YOU MUST DOCUMENT ABOVE DIAGNOSTIC STATEMENT IN DAILY PROGRESS NOTES AND DISCHARGE SUMMARY. This document is not part of the patient's record. Thank You, Stephania Ruiz RN [phone]
[2017-04-09] MEDS: PANTOprazole INJ 40 MG in SYRINGE 0 ML IV SCH (11:46)
[2017-04-09 12:24] LABS: ISTAT ARTERIAL BLOOD GAS HCO3 22 meq/L (19-24); ISTAT ARTERIAL BLOOD GAS PCO2 41 mmHg (35-46); ISTAT ARTERIAL BLOOD GAS PO2 74 mmHg (80-95); ISTAT ARTERIAL BLOOD GAS pH 7.34 (7.35-7.45); ISTAT CARBON DIOXIDE 23 mEq/l (24-31); ISTAT DELIVERY SYSTEM Ventilator; ISTAT FIO2 50 %; ISTAT PEEP 7; ISTAT RATE 20; ISTAT SITE Art Line; VE 13; Vt 650
[2017-04-09] MEDS ORDERED: NURSING VERBAL MED ORDER ONE ×3 (12:45→13:15)
[2017-04-09] MEDS ORDERED: FENTANYL CITRATE INJ 50 MCG/1 ML 2 ML VIAL IV PRN (13:15)
[2017-04-09] MEDS ORDERED: FENTANYL 1250MCG/250ML NSS IV PRN (13:15)
[2017-04-09] MEDS ORDERED: MIDAZOLAM HCL 1 MG/ML 2ML VIAL IV PRN (13:15)
[2017-04-09] MEDS ORDERED: MIDAZOLAM HCL 5 MG/ML 1 ML VIAL IV ONE (13:30)
[2017-04-09] MEDS ORDERED: MIDAZOLAM 125MG/250ML D5W 250 ML IV PRN (13:30)
[2017-04-09] MEDS: INSULIN REGULAR 250 UNITS in SODIUM CHLORIDE 0.9% 250ML 250 ML IV SCH (14:26)
--- NOTE | 2017-04-09 15:38 | Palliative Care Progress Note ---
Palliative Care Progress Note Date of Service Apr 09, 2017. Subjective Spoke with digital sales planner today. Patient is a code arctic who is now rewarmed. He is more responsive today. Holding off on consult until further notice.
--- NOTE | 2017-04-09 17:55 | Cardiology Follow-Up ---
Subjective Date of Service: Apr 09, 2017. Pt evaluation today including: physical exam, chart review, lab review, review of studies History of Present Illness Patient is currently intubated and sedated. Social History Smoking Status: Current Every Day Smoker History of Alcohol Use: No Review of Systems Patient continues to have episodes of diarrhea, reporting 4 episodes over the course of his admission so far. He does have an element of anorexia. He denies current abdominal discomfort. No dysphagia or odynophagia. He does report some difficulty with dialysis due to numbness tingling and pain in the left hand with use of his left arm fistula. Objective Vital Signs Past 12 Hours Date Time Temp Pulse Resp B/P (MAP) Pulse Ox O2 Delivery O2 Flow Rate FiO2 04/09/17 17:15 36.5 76 20 111/42 (65) 96 04/09/17 17:01 36.4 77 21 123/44 (70) 96 04/09/17 17:00 36.5 77 22 124/45 (71) 96 04/09/17 16:45 36.5 77 21 142/50 (80) 97 04/09/17 16:30 36.4 81 26 156/55 (88) 96 04/09/17 16:15 81 28 136/46 (76) 93 Mechanical Ventilator 50 04/09/17 16:01 80 26 142/54 (83) 95 Mechanical Ventilator 50 04/09/17 16:00 96 Mechanical Ventilator 50 04/09/17 16:00 50 04/09/17 16:00 78 23 137/51 (79) 96 Mechanical Ventilator 50 04/09/17 15:45 77 24 135/51 (79) 96 Mechanical Ventilator 50 04/09/17 15:36 50 04/09/17 15:30 80 24 143/54 (83) 95 Mechanical Ventilator 50 04/09/17 15:15 80 148/52 (84) 04/09/17 15:15 77 23 148/52 (84) 96 Mechanical Ventilator 50 04/09/17 15:01 81 26 141/54 (83) 95 Mechanical Ventilator 50 04/09/17 15:00 81 29 139/54 (82) 96 Mechanical Ventilator 50 04/09/17 14:43 83 80/40 04/09/17 14:30 84 68/37 04/09/17 14:30 84 26 68/37 (47) 90 Mechanical Ventilator 50 04/09/17 14:15 89 28 95/44 (61) 100 Mechanical Ventilator 50 04/09/17 14:15 89 95/44 04/09/17 14:01 93 30 119/52 (74) 100 Mechanical Ventilator 50 04/09/17 14:00 37.0 93 29 117/51 (73) 100 Mechanical Ventilator 50 04/09/17 14:00 93 117/51 04/09/17 13:45 90 29 96/44 (61) 95 Mechanical Ventilator 50 04/09/17 13:45 90 96/44 04/09/17 13:30 90 98/46 04/09/17 13:30 90 29 98/46 (63) 93 Mechanical Ventilator 50 04/09/17 13:15 92 27 102/46 (64) 95 Mechanical Ventilator 50 04/09/17 13:15 90 90/44 04/09/17 13:01 91 28 121/51 (74) 98 Mechanical Ventilator 50 04/09/17 13:00 91 114/50 04/09/17 13:00 36.9 90 28 113/50 (71) 94 Mechanical Ventilator 50 04/09/17 12:45 90 113/49 04/09/17 12:30 85 91/40 04/09/17 12:15 96 119/49 04/09/17 12:00 50 04/09/17 12:00 100 Mechanical Ventilator 50 04/09/17 12:00 94 122/48 04/09/17 11:45 92 136/50 04/09/17 11:30 89 119/46 04/09/17 11:15 85 100/41 04/09/17 11:10 50 04/09/17 11:00 85 88/51 04/09/17 11:00 36.5 85 25 88/51 (63) 100 Mechanical Ventilator 100/40 (60) 04/09/17 10:45 88 162/54 04/09/17 10:25 36.3 84 138/62 (87) 04/09/17 10:00 36.3 84 31 143/46 (78) 97 Mechanical Ventilator 116/68 (84) 04/09/17 09:00 36.1 68 20 73/42 (52) 96 Mechanical Ventilator 50 89/34 (52) 04/09/17 08:50 50 04/09/17 08:00 100 Mechanical Ventilator 80 04/09/17 08:00 80 04/09/17 08:00 36.0 76 32 94/52 (66) 100 Mechanical Ventilator 80 104/47 (66) 04/09/17 08:00 Mechanical Ventilator 80 04/09/17 07:56 80 04/09/17 07:00 35.7 74 33 100/59 (73) 100 Mechanical Ventilator 80 124/51 (75) 04/09/17 06:00 35.3 67 28 104/45 (64) 100 Mechanical Ventilator 80 98/57 (71) Last Recorded Weight-Kilograms: 111.000 Intake & Output 8-Hour Column 04/09/17 04/10/17 04/10/17 16:00 00:00 08:00 Intake Total 1925 ml Output Total 4220 ml Balance -2295 ml 24-Hour Column 04/10/17 08:00 Intake Total 1925 ml Output Total 4220 ml Balance -2295 ml Physical Exam Intubated and sedated Auscultation of the lung apices reveals upper airway sounds Heart tones are distant, without notable systolic murmur Extremities are cool to the touch, there is evidence of peripheral edema. He also has dusky toes and fingers. Data Laboratory Results: Last 24 Hours Test 04/08/17 17:59 04/08/17 20:01 04/08/17 20:02 04/08/17 20:11 Bedside Glucose (other) 186 mg/dl 142 mg/dl Prothrombin Time 14.7 SECONDS Prothromb Time International Ratio 1.4 Activated Partial Thromboplast Time 42.1 SECONDS Partial Thromboplastin Ratio 1.6 Sodium Level 131 mmol/L Potassium Level 3.3 mmol/L Chloride Level 95 mmol/L Carbon Dioxide Level 26 mmol/L Anion Gap 10.0 mmol/L Blood Urea Nitrogen 59 mg/dl Creatinine 6.30 mg/dl Est Creatinine Clear Calc Drug Dose 11.3 ml/min Estimated GFR () 8.9 Estimated GFR (Non- 7.7 BUN/Creatinine Ratio 9.2 Random Glucose 141 mg/dl Calcium Level 8.3 mg/dl Phosphorus Level 5.9 mg/dl Magnesium Level 2.3 mg/dl White Blood Count 17.69 K/uL Red Blood Count 2.54 M/uL Hemoglobin 7.7 g/dL Hematocrit 22.8 % Mean Corpuscular Volume 89.8 fL Mean Corpuscular Hemoglobin 30.3 pg Mean Corpuscular Hemoglobin Concent 33.8 g/dl Platelet Count 151 K/uL Mean Platelet Volume 11.4 fL Neutrophils (%) (Auto) 85.2 % Lymphocytes (%) (Auto) 7.0 % Monocytes (%) (Auto) 3.0 % Eosinophils (%) (Auto) 0.4 % Basophils (%) (Auto) 0.3 % Neutrophils # (Auto) 15.06 K/uL Lymphocytes # (Auto) 1.24 K/uL Monocytes # (Auto) 0.53 K/uL Eosinophils # (Auto) 0.07 K/uL Basophils # (Auto) 0.06 K/uL RDW Standard Deviation 54.0 fL RDW Coefficient of Variation 16.5 % Immature Granulocyte % (Auto) 4.1 % Immature Granulocyte # (Auto) 0.73 K/uL Basophilic Stippling 1+ Test 04/08/17 20:15 04/08/17 22:03 04/09/17 00:08 04/09/17 00:22 Blood Gas Sample Site Art Line Art Line Bedside Blood Gas pH (LAB) 7.33 7.31 Bedside Blood Gas pCO2 (LAB) 43 mmHg 45 mmHg Bedside Blood Gas pO2 (LAB) 85 mmHg 121 mmHg Bedside Blood Gas HCO3 (LAB) 23 meq/L 23 meq/L Bedside Blood Gas Total CO2 25 mEq/l 25 mEq/l Bedside Blood Gas Base Excess (LAB) -3.0 meq/L -3.0 meq/L Bedside Blood Gas O2 Saturation 97.0 % 99.0 % Raciel Test NA NA Oxygen Delivery Device Ventilator Ventilator Bedside Oxygen Rate (breaths/min) 26 26 Blood Gas Minute Ventilation 12.1 12.1 Bedside FiO2 80 % 80 % Blood Gas Tidal Volume 500 500 Blood Gas PEEP 15 15 Bedside Glucose (other) 110 mg/dl White Blood Count 16.64 K/uL Red Blood Count 2.48 M/uL Hemoglobin 7.7 g/dL Hematocrit 22.3 % Mean Corpuscular Volume 89.9 fL Mean Corpuscular Hemoglobin 31.0 pg Mean Corpuscular Hemoglobin Concent 34.5 g/dl Platelet Count 163 K/uL Mean Platelet Volume 11.7 fL Neutrophils (%) (Auto) 82.9 % Lymphocytes (%) (Auto) 7.8 % Monocytes (%) (Auto) 3.4 % Eosinophils (%) (Auto) 0.7 % Basophils (%) (Auto) 0.3 % Neutrophils # (Auto) 13.81 K/uL Lymphocytes # (Auto) 1.29 K/uL Monocytes # (Auto) 0.57 K/uL Eosinophils # (Auto) 0.11 K/uL Basophils # (Auto) 0.05 K/uL RDW Standard Deviation 54.5 fL RDW Coefficient of Variation 16.4 % Immature Granulocyte % (Auto) 4.9 % Immature Granulocyte # (Auto) 0.81 K/uL Nucleated RBC Absolute Count (auto) 0.03 K/uL Nucleated Red Blood Cells % 0.2 % Basophilic Stippling OCCASIONAL Prothrombin Time 14.2 SECONDS Prothromb Time International Ratio 1.3 Activated Partial Thromboplast Time 50.6 SECONDS Partial Thromboplastin Ratio 1.9 Sodium Level 130 mmol/L Potassium Level 3.3 mmol/L Chloride Level 94 mmol/L Carbon Dioxide Level 23 mmol/L Anion Gap 13.0 mmol/L Blood Urea Nitrogen 59 mg/dl Creatinine 6.50 mg/dl Est Creatinine Clear Calc Drug Dose 10.9 ml/min Estimated GFR () 8.6 Estimated GFR (Non- 7.4 BUN/Creatinine Ratio 9.1 Random Glucose 76 mg/dl Calcium Level 8.5 mg/dl Phosphorus Level 6.2 mg/dl Magnesium Level 2.3 mg/dl Test 04/09/17 00:29 04/09/17 01:05 04/09/17 01:39 04/09/17 03:06 Bedside Glucose (other) 75 mg/dl 67 mg/dl 106 mg/dl 105 mg/dl Test 04/09/17 04:00 04/09/17 04:09 04/09/17 04:18 04/09/17 05:16 White Blood Count 17.21 K/uL Red Blood Count 2.43 M/uL Hemoglobin 7.2 g/dL Hematocrit 21.8 % Mean Corpuscular Volume 89.7 fL Mean Corpuscular Hemoglobin 29.6 pg Mean Corpuscular Hemoglobin Concent 33.0 g/dl Platelet Count 172 K/uL Mean Platelet Volume 11.0 fL Neutrophils (%) (Auto) 83.4 % Lymphocytes (%) (Auto) 7.7 % Monocytes (%) (Auto) 3.0 % Eosinophils (%) (Auto) 1.1 % Basophils (%) (Auto) 0.2 % Neutrophils # (Auto) 14.35 K/uL Lymphocytes # (Auto) 1.33 K/uL Monocytes # (Auto) 0.51 K/uL Eosinophils # (Auto) 0.19 K/uL Basophils # (Auto) 0.04 K/uL RDW Standard Deviation 53.4 fL RDW Coefficient of Variation 16.2 % Immature Granulocyte % (Auto) 4.6 % Immature Granulocyte # (Auto) 0.79 K/uL Basophilic Stippling OCCASIONAL Prothrombin Time 13.8 SECONDS Prothromb Time International Ratio 1.3 Activated Partial Thromboplast Time 53.9 SECONDS Partial Thromboplastin Ratio 2.1 Sodium Level 128 mmol/L Potassium Level 3.3 mmol/L Chloride Level 93 mmol/L Carbon Dioxide Level 24 mmol/L Anion Gap 11.0 mmol/L Blood Urea Nitrogen 61 mg/dl Creatinine 6.40 mg/dl Est Creatinine Clear Calc Drug Dose 11.1 ml/min Estimated GFR () 8.8 Estimated GFR (Non- 7.6 BUN/Creatinine Ratio 9.6 Random Glucose 99 mg/dl Calcium Level 8.4 mg/dl Phosphorus Level 6.5 mg/dl Magnesium Level 2.3 mg/dl Total Bilirubin 0.5 mg/dl Direct Bilirubin 0.2 mg/dl Aspartate Amino Transf (AST/SGOT) 7063 U/L Alanine Aminotransferase (ALT/SGPT) 4259 U/L Alkaline Phosphatase 91 U/L Troponin I 84.200 ng/ml Total Protein 5.1 gm/dl Albumin 1.8 gm/dl Random Vancomycin Level 13.6 mcg/ml Bedside Glucose (other) 99 mg/dl 91 mg/dl Blood Gas Sample Site Art Line Bedside Blood Gas pH (LAB) 7.29 Bedside Blood Gas pCO2 (LAB) 48 mmHg Bedside Blood Gas pO2 (LAB) 127 mmHg Bedside Blood Gas HCO3 (LAB) 24 meq/L Bedside Blood Gas Total CO2 25 mEq/l Bedside Blood Gas Base Excess (LAB) -3.0 meq/L Bedside Blood Gas O2 Saturation 99.0 % Raciel Test NA Oxygen Delivery Device Ventilator Bedside Oxygen Rate (breaths/min) 26 Blood Gas Minute Ventilation 12.5 Bedside FiO2 80 % Blood Gas Tidal Volume 500 Blood Gas PEEP 15 Test 04/09/17 06:02 04/09/17 06:59 04/09/17 07:27 04/09/17 08:10 Bedside Glucose (other) 86 mg/dl 78 mg/dl 77 mg/dl Blood Gas Sample Site Art Line Bedside Blood Gas pH (LAB) 7.29 Bedside Blood Gas pCO2 (LAB) 46 mmHg Bedside Blood Gas pO2 (LAB) 104 mmHg Bedside Blood Gas HCO3 (LAB) 23 meq/L Bedside Blood Gas Total CO2 24 mEq/l Bedside Blood Gas Base Excess (LAB) -4.0 meq/L Bedside Blood Gas O2 Saturation 98.0 % Raciel Test NA Oxygen Delivery Device Ventilator Bedside Oxygen Rate (breaths/min) 26 Blood Gas Minute Ventilation 13 Bedside FiO2 80 % Blood Gas Tidal Volume 500 Blood Gas PEEP 15 Test 04/09/17 08:17 04/09/17 08:19 04/09/17 08:44 04/09/17 09:10 Bedside Glucose (other) 83 mg/dl 87 mg/dl 90 mg/dl White Blood Count 19.64 K/uL Red Blood Count 2.54 M/uL Hemoglobin 7.6 g/dL Hematocrit 22.8 % Mean Corpuscular Volume 89.8 fL Mean Corpuscular Hemoglobin 29.9 pg Mean Corpuscular Hemoglobin Concent 33.3 g/dl Platelet Count 195 K/uL Mean Platelet Volume 11.8 fL RDW Standard Deviation 53.3 fL RDW Coefficient of Variation 16.1 % Neutrophils % (Manual) 83.6 % Lymphocytes % (Manual) 6.0 % Monocytes % (Manual) 6.0 % Basophils % (Manual) 0.9 % Metamyelocytes % 0.9 % Myelocytes % 1.7 % Blast Cells % 0.9 % Neutrophils # (Manual) 16.42 K/uL Total Absolute Neutrophils 16.42 K/uL Lymphocytes # (Manual) 1.18 K/uL Total Absolute Lymphocytes 1.18 K/uL Monocytes # (Manual) 1.18 K/uL Basophils # (Manual) 0.18 K/uL Metamyelocytes # 0.18 K/uL Myelocytes # 0.33 K/uL Blast Cells # 0.18 K/uL Blood Smear Review Basophilic Stippling 1+ Prothrombin Time 13.2 SECONDS Prothromb Time International Ratio 1.2 Activated Partial Thromboplast Time 56.2 SECONDS Partial Thromboplastin Ratio 2.2 Sodium Level 128 mmol/L Potassium Level 3.7 mmol/L Chloride Level 91 mmol/L Carbon Dioxide Level 23 mmol/L Anion Gap 14.0 mmol/L Blood Urea Nitrogen 60 mg/dl Creatinine 6.50 mg/dl Est Creatinine Clear Calc Drug Dose 10.9 ml/min Estimated GFR () 8.6 Estimated GFR (Non- 7.4 BUN/Creatinine Ratio 9.2 Random Glucose 84 mg/dl Calcium Level 9.0 mg/dl Phosphorus Level 6.9 mg/dl Magnesium Level 2.3 mg/dl Test 04/09/17 09:51 04/09/17 10:23 04/09/17 11:28 04/09/17 12:13 Bedside Glucose (other) 100 mg/dl 109 mg/dl 114 mg/dl Blood Gas Sample Site Art Line Bedside Blood Gas pH (LAB) 7.34 Bedside Blood Gas pCO2 (LAB) 41 mmHg Bedside Blood Gas pO2 (LAB) 74 mmHg Bedside Blood Gas HCO3 (LAB) 22 meq/L Bedside Blood Gas Total CO2 23 mEq/l Bedside Blood Gas Base Excess (LAB) -4.0 meq/L Bedside Blood Gas O2 Saturation 94.0 % Raciel Test NA Oxygen Delivery Device Ventilator Bedside Oxygen Rate (breaths/min) 20 Blood Gas Minute Ventilation 13 Bedside FiO2 50 % Blood Gas Tidal Volume 650 Blood Gas PEEP 7 Test 04/09/17 12:19 04/09/17 13:41 04/09/17 14:23 04/09/17 15:19 Bedside Glucose (other) 113 mg/dl 115 mg/dl 115 mg/dl 120 mg/dl Telemetry reviewed: No additional arrhythmias overnight. Assessment and Plan 1. PEA arrest: Unclear etiology. He has currently completed his [facility] protocol and has been effectively Re warmed. Currently waiting for evidence of appropriate neurologic recovery. 2. Decompensated left ventricular failure: Continuing dialysis for maintaining normal volume status. 3. Left ventricular systolic failure: The chronicity of his LV dysfunction is unclear. Severely reduced LV systolic function. Possibly related to acute acidosis and recent resuscitation. As his clinical condition improves we can perform a re-evaluation. Ideally he would be on medical therapy to include beta -blockade and John inhibition. Currently contraindicated due to his need for pressor support. 4. Elevated troponin: Possibly related to his resuscitation. Unclear if this was the precipitating event. He has been maintained on heparin which I believe can be discontinued safely tomorrow. Depending on his recovery coronary angiography will be indicated. 5. Valvular heart disease: Patient was reported to have severe aortic stenosis. There is no significant murmur on examination. He may have a lesser degree of aortic stenosis the. Doubt that this played a role in his decompensation but must be monitored closely. Certainly no role at this time for any intervention. 5. Abnormal EKG: Still appears to have a wider QRS than baseline. No arrhythmias recently. He has been continued on amiodarone for an episode of ventricular tachycardia during his resuscitation. Seems reasonable continue this as we assess his overall recovery. Obviously the current therapy is supportive in nature. Additional cardiac studies and therapy will be required should he have meaningful neurologic recovery. We will continue our evaluation once his recovery has been established. Her additional questions over the next 2 days regarding his care please call the on-call cardiology physician.
[2017-04-09] MEDS: HEPARIN 25,000 UNIT/500ML D5W 500 ML IV PRN (18:10)
[2017-04-09] MEDS ORDERED: INSULIN GLARGINE SOLOSTAR 100 UNITS/ML 3 ML PEN SQ ONE (21:00)
[2017-04-09] MEDS ORDERED: VANCOMYCIN INJ 750 MG in SODIUM CHLORIDE 0.9% 250ML 250 ML IV ONE (21:30)
--- NOTE | 2017-04-09 23:40 | Hospitalist Progress Note ---
Hospitalist Progress Note Date of Service Apr 09, 2017. Subjective Pt evaluation today including: conversation w/ family Pt remains intubated, not sedated but is not responsive. Discussed with oldest son Ed at the bedside. He reports a family mtg today with Insurance Inspector and states that family is all in agreement to begin RE ETCHER tomorrow after the rest of the family arrives to say their goodbyes. He said his dad had a living will and clearly stated he would not want prolonged life-saving measures. Additional Comments: unable to obtain ROS Objective Vital Signs Date Time Temp Pulse Resp B/P (MAP) Pulse Ox O2 Delivery O2 Flow Rate FiO2 04/09/17 22:29 50 04/09/17 22:01 36.3 74 20 113/42 (65) 93 04/09/17 22:00 36.3 74 20 112/42 (65) 94 04/09/17 21:01 36.2 74 20 113/44 (67) 97 04/09/17 21:00 36.2 74 20 113/44 (67) 97 04/09/17 20:00 50 04/09/17 20:00 96 Mechanical Ventilator 50 04/09/17 19:01 36.3 75 20 133/47 (75) 97 04/09/17 19:00 36.3 75 20 127/46 (73) 96 04/09/17 18:19 50 04/09/17 17:15 36.5 76 20 111/42 (65) 96 04/09/17 17:01 36.4 77 21 123/44 (70) 96 04/09/17 17:00 36.5 77 22 124/45 (71) 96 04/09/17 16:45 36.5 77 21 142/50 (80) 97 04/09/17 16:30 36.4 81 26 156/55 (88) 96 04/09/17 16:15 81 28 136/46 (76) 93 Mechanical Ventilator 50 04/09/17 16:01 80 26 142/54 (83) 95 Mechanical Ventilator 50 04/09/17 16:00 96 Mechanical Ventilator 50 04/09/17 16:00 50 04/09/17 16:00 78 23 137/51 (79) 96 Mechanical Ventilator 50 04/09/17 15:45 77 24 135/51 (79) 96 Mechanical Ventilator 50 04/09/17 15:36 50 04/09/17 15:30 80 24 143/54 (83) 95 Mechanical Ventilator 50 04/09/17 15:15 80 148/52 (84) 15 15:15 77 23 148/52 (84) 96 Mechanical Ventilator 50 04/09/17 15:01 81 26 141/54 (83) 95 Mechanical Ventilator 50 04/09/17 15:00 81 29 139/54 (82) 96 Mechanical Ventilator 50 04/09/17 14:43 83 80/40 04/09/17 14:30 84 68/37 04/09/17 14:30 84 26 68/37 (47) 90 Mechanical Ventilator 50 04/09/17 14:15 89 28 95/44 (61) 100 Mechanical Ventilator 50 04/09/17 14:15 89 95/44 04/09/17 14:01 93 30 119/52 (74) 100 Mechanical Ventilator 50 04/09/17 14:00 37.0 93 29 117/51 (73) 100 Mechanical Ventilator 50 04/09/17 14:00 93 117/51 04/09/17 13:45 90 29 96/44 (61) 95 Mechanical Ventilator 50 04/09/17 13:45 90 96/44 04/09/17 13:30 90 98/46 04/09/17 13:30 90 29 98/46 (63) 93 Mechanical Ventilator 50 04/09/17 13:15 92 27 102/46 (64) 95 Mechanical Ventilator 50 04/09/17 13:15 90 90/44 04/09/17 13:01 91 28 121/51 (74) 98 Mechanical Ventilator 50 04/09/17 13:00 91 114/50 04/09/17 13:00 36.9 90 28 113/50 (71) 94 Mechanical Ventilator 50 04/09/17 12:45 90 113/49 04/09/17 12:30 85 91/40 04/09/17 12:15 96 119/49 04/09/17 12:00 50 04/09/17 12:00 100 Mechanical Ventilator 50 04/09/17 12:00 94 122/48 04/09/17 11:45 92 136/50 04/09/17 11:30 89 119/46 04/09/17 11:15 85 100/41 04/09/17 11:10 50 04/09/17 11:00 85 88/51 9/15/17 11:00 36.5 85 25 88/51 (63) 100 Mechanical Ventilator 100/40 (60) 04/09/17 10:45 88 162/54 04/09/17 10:25 36.3 84 138/62 (87) 04/09/17 10:00 36.3 84 31 143/46 (78) 97 Mechanical Ventilator 116/68 (84) 04/09/17 09:00 36.1 68 20 73/42 (52) 96 Mechanical Ventilator 50 89/34 (52) 04/09/17 08:50 50 04/09/17 08:00 100 Mechanical Ventilator 80 04/09/17 08:00 80 04/09/17 08:00 36.0 76 32 94/52 (66) 100 Mechanical Ventilator 80 104/47 (66) 04/09/17 08:00 Mechanical Ventilator 80 04/09/17 07:56 80 04/09/17 07:00 35.7 74 33 100/59 (73) 100 Mechanical Ventilator 80 124/51 (75) 04/09/17 06:00 35.3 67 28 104/45 (64) 100 Mechanical Ventilator 80 98/57 (71) 04/09/17 05:28 80 04/09/17 05:00 35.1 65 26 98/57 (71) 100 Mechanical Ventilator 80 98/46 (63) 04/09/17 04:00 100 Mechanical Ventilator 80 04/09/17 04:00 80 04/09/17 04:00 35.2 63 27 104/47 (66) 100 Mechanical Ventilator 80 04/09/17 03:00 34.9 67 30 127/53 (77) 100 Mechanical Ventilator 80 121/63 (82) 04/09/17 02:15 80 04/09/17 02:00 35.1 64 26 106/47 (66) 100 Mechanical Ventilator 80 04/09/17 01:00 35.2 63 26 100/59 (73) 100 Mechanical Ventilator 80 101/49 (66) 04/09/17 00:01 35.3 63 26 109/49 (69) 100 Mechanical Ventilator 80 94/54 (67) 04/08/17 23:59 100 Mechanical Ventilator 80 04/08/17 23:59 80 Physical Exam General Appearance: no apparent distress, + pertinent finding (intubated, not responsive) ENT: + pertinent finding (ET tube in place) Respiratory/Chest: no accessory muscle use, + pertinent finding (coarse BS bilat) Cardiovascular: regular rate, rhythm Abdomen: soft Neurologic/Psychiatric: + pertinent finding (not responsive) Skin: + pertinent finding (ashen keyes in color) Laboratory Results Last 24 Hours Test 04/09/17 00:08 04/09/17 00:22 04/09/17 00:29 04/09/17 01:05 White Blood Count 16.64 K/uL Red Blood Count 2.48 M/uL Hemoglobin 7.7 g/dL Hematocrit 22.3 % Mean Corpuscular Volume 89.9 fL Mean Corpuscular Hemoglobin 31.0 pg Mean Corpuscular Hemoglobin Concent 34.5 g/dl Platelet Count 163 K/uL Mean Platelet Volume 11.7 fL Neutrophils (%) (Auto) 82.9 % Lymphocytes (%) (Auto) 7.8 % Monocytes (%) (Auto) 3.4 % Eosinophils (%) (Auto) 0.7 % Basophils (%) (Auto) 0.3 % Neutrophils # (Auto) 13.81 K/uL Lymphocytes # (Auto) 1.29 K/uL Monocytes # (Auto) 0.57 K/uL Eosinophils # (Auto) 0.11 K/uL Basophils # (Auto) 0.05 K/uL RDW Standard Deviation 54.5 fL RDW Coefficient of Variation 16.4 % Immature Granulocyte % (Auto) 4.9 % Immature Granulocyte # (Auto) 0.81 K/uL Nucleated RBC Absolute Count (auto) 0.03 K/uL Nucleated Red Blood Cells % 0.2 % Basophilic Stippling OCCASIONAL Prothrombin Time 14.2 SECONDS Prothromb Time International Ratio 1.3 Activated Partial Thromboplast Time 50.6 SECONDS Partial Thromboplastin Ratio 1.9 Sodium Level 130 mmol/L Potassium Level 3.3 mmol/L Chloride Level 94 mmol/L Carbon Dioxide Level 23 mmol/L Anion Gap 13.0 mmol/L Blood Urea Nitrogen 59 mg/dl Creatinine 6.50 mg/dl Est Creatinine Clear Calc Drug Dose 10.9 ml/min Estimated GFR () 8.6 Estimated GFR (Non- 7.4 BUN/Creatinine Ratio 9.1 Random Glucose 76 mg/dl Calcium Level 8.5 mg/dl Phosphorus Level 6.2 mg/dl Magnesium Level 2.3 mg/dl Blood Gas Sample Site Art Line Bedside Blood Gas pH (LAB) 7.31 Bedside Blood Gas pCO2 (LAB) 45 mmHg Bedside Blood Gas pO2 (LAB) 121 mmHg Bedside Blood Gas HCO3 (LAB) 23 meq/L Bedside Blood Gas Total CO2 25 mEq/l Bedside Blood Gas Base Excess (LAB) -3.0 meq/L Bedside Blood Gas O2 Saturation 99.0 % Raciel Test NA Oxygen Delivery Device Ventilator Bedside Oxygen Rate (breaths/min) 26 Blood Gas Minute Ventilation 12.1 Bedside FiO2 80 % Blood Gas Tidal Volume 500 Blood Gas PEEP 15 Bedside Glucose (other) 75 mg/dl 67 mg/dl Test 04/09/17 01:39 04/09/17 03:06 04/09/17 04:00 04/09/17 04:09 Bedside Glucose (other) 106 mg/dl 105 mg/dl 99 mg/dl White Blood Count 17.21 K/uL Red Blood Count 2.43 M/uL Hemoglobin 7.2 g/dL Hematocrit 21.8 % Mean Corpuscular Volume 89.7 fL Mean Corpuscular Hemoglobin 29.6 pg Mean Corpuscular Hemoglobin Concent 33.0 g/dl Platelet Count 172 K/uL Mean Platelet Volume 11.0 fL Neutrophils (%) (Auto) 83.4 % Lymphocytes (%) (Auto) 7.7 % Monocytes (%) (Auto) 3.0 % Eosinophils (%) (Auto) 1.1 % Basophils (%) (Auto) 0.2 % Neutrophils # (Auto) 14.35 K/uL Lymphocytes # (Auto) 1.33 K/uL Monocytes # (Auto) 0.51 K/uL Eosinophils # (Auto) 0.19 K/uL Basophils # (Auto) 0.04 K/uL RDW Standard Deviation 53.4 fL RDW Coefficient of Variation 16.2 % Immature Granulocyte % (Auto) 4.6 % Immature Granulocyte # (Auto) 0.79 K/uL Basophilic Stippling OCCASIONAL Prothrombin Time 13.8 SECONDS Prothromb Time International Ratio 1.3 Activated Partial Thromboplast Time 53.9 SECONDS Partial Thromboplastin Ratio 2.1 Sodium Level 128 mmol/L Potassium Level 3.3 mmol/L Chloride Level 93 mmol/L Carbon Dioxide Level 24 mmol/L Anion Gap 11.0 mmol/L Blood Urea Nitrogen 61 mg/dl Creatinine 6.40 mg/dl Est Creatinine Clear Calc Drug Dose 11.1 ml/min Estimated GFR () 8.8 Estimated GFR (Non- 7.6 BUN/Creatinine Ratio 9.6 Random Glucose 99 mg/dl Calcium Level 8.4 mg/dl Phosphorus Level 6.5 mg/dl Magnesium Level 2.3 mg/dl Total Bilirubin 0.5 mg/dl Direct Bilirubin 0.2 mg/dl Aspartate Amino Transf (AST/SGOT) 7063 U/L Alanine Aminotransferase (ALT/SGPT) 4259 U/L Alkaline Phosphatase 91 U/L Troponin I 84.200 ng/ml Total Protein 5.1 gm/dl Albumin 1.8 gm/dl Random Vancomycin Level 13.6 mcg/ml Test 04/09/17 04:18 04/09/17 05:16 04/09/17 06:02 04/09/17 06:59 Blood Gas Sample Site Art Line Bedside Blood Gas pH (LAB) 7.29 Bedside Blood Gas pCO2 (LAB) 48 mmHg Bedside Blood Gas pO2 (LAB) 127 mmHg Bedside Blood Gas HCO3 (LAB) 24 meq/L Bedside Blood Gas Total CO2 25 mEq/l Bedside Blood Gas Base Excess (LAB) -3.0 meq/L Bedside Blood Gas O2 Saturation 99.0 % Raciel Test NA Oxygen Delivery Device Ventilator Bedside Oxygen Rate (breaths/min) 26 Blood Gas Minute Ventilation 12.5 Bedside FiO2 80 % Blood Gas Tidal Volume 500 Blood Gas PEEP 15 Bedside Glucose (other) 91 mg/dl 86 mg/dl 78 mg/dl Test 04/09/17 07:27 04/09/17 08:10 04/09/17 08:17 04/09/17 08:19 Bedside Glucose (other) 77 mg/dl 83 mg/dl Blood Gas Sample Site Art Line Bedside Blood Gas pH (LAB) 7.29 Bedside Blood Gas pCO2 (LAB) 46 mmHg Bedside Blood Gas pO2 (LAB) 104 mmHg Bedside Blood Gas HCO3 (LAB) 23 meq/L Bedside Blood Gas Total CO2 24 mEq/l Bedside Blood Gas Base Excess (LAB) -4.0 meq/L Bedside Blood Gas O2 Saturation 98.0 % Raciel Test NA Oxygen Delivery Device Ventilator Bedside Oxygen Rate (breaths/min) 26 Blood Gas Minute Ventilation 13 Bedside FiO2 80 % Blood Gas Tidal Volume 500 Blood Gas PEEP 15 White Blood Count 19.64 K/uL Red Blood Count 2.54 M/uL Hemoglobin 7.6 g/dL Hematocrit 22.8 % Mean Corpuscular Volume 89.8 fL Mean Corpuscular Hemoglobin 29.9 pg Mean Corpuscular Hemoglobin Concent 33.3 g/dl Platelet Count 195 K/uL Mean Platelet Volume 11.8 fL RDW Standard Deviation 53.3 fL RDW Coefficient of Variation 16.1 % Neutrophils % (Manual) 83.6 % Lymphocytes % (Manual) 6.0 % Monocytes % (Manual) 6.0 % Basophils % (Manual) 0.9 % Metamyelocytes % 0.9 % Myelocytes % 1.7 % Blast Cells % 0.9 % Neutrophils # (Manual) 16.42 K/uL Total Absolute Neutrophils 16.42 K/uL Lymphocytes # (Manual) 1.18 K/uL Total Absolute Lymphocytes 1.18 K/uL Monocytes # (Manual) 1.18 K/uL Basophils # (Manual) 0.18 K/uL Metamyelocytes # 0.18 K/uL Myelocytes # 0.33 K/uL Blast Cells # 0.18 K/uL Blood Smear Review Basophilic Stippling 1+ Prothrombin Time 13.2 SECONDS Prothromb Time International Ratio 1.2 Activated Partial Thromboplast Time 56.2 SECONDS Partial Thromboplastin Ratio 2.2 Sodium Level 128 mmol/L Potassium Level 3.7 mmol/L Chloride Level 91 mmol/L Carbon Dioxide Level 23 mmol/L Anion Gap 14.0 mmol/L Blood Urea Nitrogen 60 mg/dl Creatinine 6.50 mg/dl Est Creatinine Clear Calc Drug Dose 10.9 ml/min Estimated GFR () 8.6 Estimated GFR (Non- 7.4 BUN/Creatinine Ratio 9.2 Random Glucose 84 mg/dl Calcium Level 9.0 mg/dl Phosphorus Level 6.9 mg/dl Magnesium Level 2.3 mg/dl Test 04/09/17 08:44 04/09/17 09:10 04/09/17 09:51 04/09/17 10:23 Bedside Glucose (other) 87 mg/dl 90 mg/dl 100 mg/dl 109 mg/dl Test 04/09/17 11:28 04/09/17 12:13 04/09/17 12:19 04/09/17 13:41 Bedside Glucose (other) 114 mg/dl 113 mg/dl 115 mg/dl Blood Gas Sample Site Art Line Bedside Blood Gas pH (LAB) 7.34 Bedside Blood Gas pCO2 (LAB) 41 mmHg Bedside Blood Gas pO2 (LAB) 74 mmHg Bedside Blood Gas HCO3 (LAB) 22 meq/L Bedside Blood Gas Total CO2 23 mEq/l Bedside Blood Gas Base Excess (LAB) -4.0 meq/L Bedside Blood Gas O2 Saturation 94.0 % Raciel Test NA Oxygen Delivery Device Ventilator Bedside Oxygen Rate (breaths/min) 20 Blood Gas Minute Ventilation 13 Bedside FiO2 50 % Blood Gas Tidal Volume 650 Blood Gas PEEP 7 Test 04/09/17 14:23 04/09/17 15:19 04/09/17 17:37 04/09/17 19:32 Bedside Glucose (other) 115 mg/dl 120 mg/dl 138 mg/dl 146 mg/dl Test 04/09/17 20:09 04/09/17 21:32 Random Vancomycin Level 14.0 mcg/ml Bedside Glucose (other) 153 mg/dl Assessment and Plan 81 yo male with a history of ESRD on HD, recent fall with left proximal humerus fracture, ankylosing spondylitis, DM II, HTN, HLD, mesenteric ischemia, chronic post-prandial diarrhea, and anemia of chronic disease who presents, here with Right sided HCAP, respiratory insufficiency, and recent fall with left humerus fracture, left chest wall pain, demand ischemia, who sustained cardiac arrest with PEA, VT, VF of unknown etiology. Perhaps acute RI. Cardiology thinks not likely primary arrhythmia as cause. Appreciate ICU management in this critically ill pt. He is off sedation x 2 days and no responsiveness yet, prognosis very guarded -vent management as per ICU -troponin elevated, on heparin gtt for 1 more day as per Cardio, continue vasopressors and wean as able to, warmed up from hypothermia -continue amiodarone gtt for previous VT, VF--> ECGs from ROSC were thought to be VT initially but Cardio review thinks sinus tach with RBBB - ECHO with moderately reduced LVEF, severe , grade 2 diastolic dysfunction -continuous EEG with generalized slowing -for PNA continue Vanc and Zosyn to cover for HCAP specifically to treat for GNR PNA and MRSA PNA, added on doxy for atypicals as Levaquin dc'd for prolonged QTc -has biliary dyskinesia and chronic diarrhea and chronic abd pain-no issues currently -Appreciate Nephrology management of HD, lytes -follow hgb, has h/o GI bleeding recently from [place] lesion -insulin gtt for hyperglycemia -considering comfort measures only tomorrow as per son DNR
[2017-04-10] VITALS (19 sets, daily range): BP systolic 83–154; BP diastolic 40–65; PULSE 69–80; TEMP 37–37.4; O2SAT 92–97
[2017-04-10] MEDS: PIPERACILL/TAZOBAC IV 3.375 GM in DEXTROSE 5% 100ML IV SCH (02:00)
[2017-04-10] MEDS: DOXYCYCLINE HYCLATE 100 MG in DEXTROSE 5% 100ML IV SCH (02:00)
[2017-04-10] MEDS: AMIODARONE / D5W 200 ML IV SCH ×2 (02:26→12:38)
[2017-04-10 05:34] LABS: HEMATOCRIT 27.6 % (42-52); MEAN CELL VOLUME 87.6 fL (80-100); MEAN CORPUSCULAR HEMOGLOBIN 29.2 pg (25-34); MEAN CORPUSCULAR HGB CONC 33.3 g/dl (32-36); MEAN PLATELET VOLUME 10.9 fL (7.4-10.4); PLATELET COUNT 208 K/uL (130-400); RED BLOOD COUNT 3.15 M/uL (4.7-6.1); WHITE BLOOD COUNT 19.56 K/uL (4.8-10.8)
[2017-04-10 05:39] LABS: VEN BLD GAS O2 SATURATION 89.8 %; VEN BLOOD GAS BASE EXCESS -3.1 mEq/L
[2017-04-10 06:12] LABS: BUN/CREATININE RATIO 7.8 (10-20); CALCIUM 9.1 mg/dl (8.5-10.1); MAGNESIUM 2.1 mg/dl (1.8-2.4); PHOSPHORUS 5.6 mg/dl (2.5-4.9)
--- NOTE | 2017-04-10 07:08 | DIAGNOSTIC IMAGING REPORT ---
CHEST ONE VIEW PORTABLE CLINICAL HISTORY: Respiratory failure. Cardiac arrest. COMPARISON STUDY: 04/09/2017 FINDINGS: The heart remains enlarged. There is aortic tortuosity/ectasia. There is an endotracheal tube 43 mm above the shilpi. There is a nasogastric tube which passes into the stomach. There is persistent congestive failure/fluid overload. Subpulmonic pleural effusions are suspected.[ IMPRESSION: 1. Endotracheal tube 43 mm above the shilpi 2. Persistent congestive failure/fluid overload with suspected subpulmonic pleural effusions Electronically signed by: Oh [place] M.D. 04/10/2017 7:07 AM Dictated Date/Time: 04/10/2017 7:05 AM
[2017-04-10] MEDS: INSULIN ASPART 100 UNITS/ML 3 ML PEN SC SCH ×2 (07:23→12:00)
[2017-04-10] MEDS: PHENYLEPHRINE HCL INJ 80 MG in DEXTROSE 5% 500ML 500 ML IV PRN ×2 (07:35→13:38)
[2017-04-10] MEDS: IPRATROPIUM BROMIDE HFA INHALER INH SCH ×2 (08:00→11:38)
[2017-04-10] MEDS: ALBUTEROL HFA 8 GM INHALER INH SCH ×2 (08:00→11:38)
--- NOTE | 2017-04-10 09:58 | Pharmacy Progress Note ---
Pharmacy Abx Dose Progress Nt Date of Service Apr 10, 2017. Pharmacy Dosing Scope The patient is currently receiving the following antimicrobial agents per Pharmacy consult: Vancomycin IV --> dosing per pre-HD levels Zosyn 3.375g IV Q12hrs via extended infusion dosing Doxy 100mg IV BID {not a pharmacy consult} Objective Height (Feet): 5 Height (Inches): 9.00 Weight (Kilograms): 111.000 Vital Signs (Past 12Hrs) Vital Signs Past 12 Hours Date Time Temp Pulse Resp B/P (MAP) Pulse Ox O2 Delivery O2 Flow Rate FiO2 04/10/17 08:00 50 04/10/17 08:00 94 Mechanical Ventilator 50 04/10/17 08:00 37.4 78 20 129/64 (85) 94 Mechanical Ventilator 50 125/45 (71) 04/10/17 07:28 50 04/10/17 06:01 37.4 80 25 125/45 (71) 94 04/10/17 06:01 50 04/10/17 06:00 37.4 80 24 122/45 (70) 94 04/10/17 05:01 37.3 78 22 129/48 (75) 93 04/10/17 05:00 37.3 77 21 123/47 (72) 93 04/10/17 04:45 50 04/10/17 04:04 50 04/10/17 04:04 96 Mechanical Ventilator 50 04/10/17 04:01 37.3 78 21 125/46 (72) 93 04/10/17 04:00 37.3 78 21 122/45 (70) 93 04/10/17 03:01 37.1 77 20 126/46 (72) 93 04/10/17 03:00 37.1 77 21 123/45 (71) 93 04/10/17 02:01 37.1 76 22 126/47 (73) 93 04/10/17 02:00 37.1 76 21 118/46 (70) 93 04/10/17 01:19 50 04/10/17 01:01 37.0 74 20 128/48 (74) 97 04/10/17 01:00 74 20 120/46 (70) 97 04/10/17 00:36 50 04/10/17 00:36 96 Mechanical Ventilator 50 04/10/17 00:00 71 20 108/56 (73) 97 9/15/17 23:52 72 20 80/45 (57) 98 04/09/17 23:01 36.4 77 11 129/52 (77) 96 04/09/17 23:00 36.4 74 20 117/45 (69) 97 04/09/17 22:29 50 04/09/17 22:01 36.3 74 20 113/42 (65) 93 04/09/17 22:00 36.3 74 20 112/42 (65) 94 Lab Results (24Hrs) Laboratory Tests (24 Hours) Test 04/10/17 05:23 White Blood Count 19.56 K/uL (4.8-10.8) H Micro Results Date/Time Source Procedure Growth Status 04/07/17 11:45 Blood Blood Culture - Preliminary Gram Positive Cocci Resulted 04/07/17 11:41 Blood Blood Culture - Preliminary NO GROWTH TO DATE. Resulted 04/07/17 22:30 Nasal MRSA DNA Surveillance Screen - Final Specimen Negative for MRSA by DNA Probe Complete 04/08/17 04:40 Bronchial Washings Right Middle Lobe Fungal Smear - Final Resulted 04/08/17 04:40 Bronchial Washings Right Middle Lobe Fungal Culture Pending Resulted 04/08/17 04:40 Bronchial Washings Right Middle Lobe Acid Fast Stain - Final Resulted 04/08/17 04:40 Bronchial Washings Right Middle Lobe Mycobacterial Culture Pending Resulted 04/08/17 04:40 Bronchial Washings Right Middle Lobe Gram Stain - Final Complete 04/08/17 04:40 Bronchial Washings Right Middle Lobe Bronchoalveolar Lavage Culture - Final LIGHT NORMAL KENNETH. Complete Risk Factors for Resistance * Resident in a residential or extended-care facility * Hospitalization for 48 hours or more within the past 90 days * Current hospitalization > 5 days * Chronic dialysis within the past 30 days * Immunocompromised (chronic steroid therapy, chemotherapy, immunomodulators) * History of infection with a multidrug-resistant organism: [organism] [site of infection] [date] * Antimicrobial use within the last 90 days [include specific drugs, if known] Assessment & Plan Assessment * 81 yo M admitted 04/06 with SOB 2nd PNM and missed HD. Cardiac arrest with ROSC on 04/07 PM - therapeutic hypothermia initiated. Currently in re-warming phase with anticipation of normothermia later this afternoon. Patient remains critically ill in ICU, requiring ventilation and pressure support. * On Zosyn, vancomycin, and doxycycline for HAP. MRSA swab negative, but will continue vancomycin for now 2nd severity of illness. * Sequence of HD sessions, vancomycin levels, and vancomycin doses * 04/08 0400: completed 3 hr of emergent HD for metabolic acidosis * 04/08 0445: vancomycin 20 mg/kg IV load * 04/09 040: Random vancomycin level subtherapeutic at 13.6 mcg/mL * 04/09: Gave a one-time dose of vancomycin 750mg RASHI for subtherapeutic level prior to HD and checked a post-HD level * 04/09: Post-HD level sub-therapeutic, therefore, additional one time dose of Vancomycin 750mg IV given after HD Plan * Vancomycin should be at a therapeutic level as last dose given 04/09 @ 2200. * No HD scheduled for today. No vancomycin needed today * Will re-dose IV Vanco after next HD session based on pre-HD level. * No changes needed with Zosyn dosing as it is current dose adjusted for HD. Pharmacy will continue to follow and will adjust dose/frequency as necessary. Thank you.
[2017-04-10 10:29] LABS: ISTAT ARTERIAL BLOOD GAS HCO3 22 meq/L (19-24); ISTAT ARTERIAL BLOOD GAS PCO2 40 mmHg (35-46); ISTAT ARTERIAL BLOOD GAS PO2 64 mmHg (80-95); ISTAT ARTERIAL BLOOD GAS pH 7.34 (7.35-7.45); ISTAT CARBON DIOXIDE 23 mEq/l (24-31); ISTAT DELIVERY SYSTEM Ventilator; ISTAT FIO2 50 %; ISTAT PEEP 5; ISTAT RATE 20; ISTAT SITE Art Line; VE 11; Vt 600
[2017-04-10] MEDS ORDERED: INSULIN GLARGINE SOLOSTAR 100 UNITS/ML 3 ML PEN SC ONE (10:45)
[2017-04-10] MEDS: PANTOprazole INJ 40 MG in SYRINGE 0 ML IV SCH (11:13)
--- NOTE | 2017-04-10 11:14 | Nephrology Progress Note ---
Nephrology Progress Note Date of Service Apr 10, 2017. Chief Complaint Follow-up for end-stage renal disease on hemodialysis. Subjective Ed Was seen and examined in his room in ICU. Blood pressure has been better and his getting titrated off of pressor. O2 saturation good on FiO2 50%. His off of sedation but no significant neurological improvement. On continuous EEG monitoring. Electrolyte acceptable. Review of Systems Review of system was not possible as patient intubated and remained unresponsive off of sedation. Vital Signs Last 8 Hrs Date Time Temp Pulse Resp B/P (MAP) Pulse Ox O2 Delivery O2 Flow Rate FiO2 04/10/17 10:00 37.4 76 22 127/65 (85) 93 Mechanical Ventilator 50 04/10/17 08:00 50 04/10/17 08:00 94 Mechanical Ventilator 50 04/10/17 08:00 37.4 78 20 129/64 (85) 94 Mechanical Ventilator 50 125/45 (71) 04/10/17 07:28 50 04/10/17 06:01 37.4 80 25 125/45 (71) 94 04/10/17 06:01 50 04/10/17 06:00 37.4 80 24 122/45 (70) 94 04/10/17 05:01 37.3 78 22 129/48 (75) 93 04/10/17 05:00 37.3 77 21 123/47 (72) 93 04/10/17 04:45 50 04/10/17 04:04 50 04/10/17 04:04 96 Mechanical Ventilator 50 04/10/17 04:01 37.3 78 21 125/46 (72) 93 04/10/17 04:00 37.3 78 21 122/45 (70) 93 Last Recorded Weight Weight (Kilograms): 111.000 Physical Exam GENERAL: Elderly male, intubated, off of sedation but did not respond. NECK: Supple, no JVD. RESPIRATORY: Crackles bilaterally. CARDIOVASCULAR: S1, S2 normal, rate rhythm regular. EXTREMITY: No lower extremity edema, edema upper extremity NEURO: Could not be assessed, Remain unresponsive Family History No pertinent family history Negative for CKD / ESRD Social History Drug Use: none Marital Status: Housing Status: lives with family Occupation: retired . has Alzheimers and requires home health nursing. Patient is retired. Current smoker Laboratory Results Past 24 Hours 04/10/17 05:23 04/10/17 05:23 Test 04/09/17 11:28 04/09/17 12:13 04/09/17 12:19 04/09/17 13:41 Bedside Glucose (other) 114 mg/dl (70-99) 113 mg/dl (70-99) 115 mg/dl (70-99) Blood Gas Sample Site Art Line Bedside Blood Gas pH (LAB) 7.34 (7.35-7.45) Bedside Blood Gas pCO2 (LAB) 41 mmHg (35-46) Bedside Blood Gas pO2 (LAB) 74 mmHg (80-95) Bedside Blood Gas HCO3 (LAB) 22 meq/L (19-24) Bedside Blood Gas Total CO2 23 mEq/l (24-31) Bedside Blood Gas Base Excess (LAB) -4.0 meq/L (-9-1.8) Bedside Blood Gas O2 Saturation 94.0 % (90-95) Raciel Test NA Oxygen Delivery Device Ventilator Bedside Oxygen Rate (breaths/min) 20 Blood Gas Minute Ventilation 13 Bedside FiO2 50 % Blood Gas Tidal Volume 650 Blood Gas PEEP 7 Test 04/09/17 14:23 04/09/17 15:19 04/09/17 17:37 04/09/17 19:32 Bedside Glucose (other) 115 mg/dl (70-99) 120 mg/dl (70-99) 138 mg/dl (70-99) 146 mg/dl (70-99) Test 04/09/17 20:09 04/09/17 21:32 04/09/17 23:18 04/10/17 02:24 Random Vancomycin Level 14.0 mcg/ml Bedside Glucose (other) 153 mg/dl (70-99) 156 mg/dl (70-99) 153 mg/dl (70-99) Test 04/10/17 05:23 04/10/17 05:29 04/10/17 08:29 04/10/17 10:18 Red Blood Count 3.15 M/uL (4.7-6.1) Mean Corpuscular Volume 87.6 fL (80-100) Mean Corpuscular Hemoglobin 29.2 pg (25-34) Mean Corpuscular Hemoglobin Concent 33.3 g/dl (32-36) RDW Standard Deviation 53.2 fL (36.4-46.3) RDW Coefficient of Variation 16.7 % (11.5-14.5) Mean Platelet Volume 10.9 fL (7.4-10.4) Nucleated RBC Absolute Count (auto) 0.15 K/uL (0-0) Nucleated Red Blood Cells % 0.8 % Venous Blood pH 7.34 (7.36-7.41) Venous Blood Partial Pressure CO2 42 mmHg (38.0-50.0) Venous Blood Partial Pressure O2 67 mmHg Venous Blood HCO3 22 mmol/L Venous Blood Oxygen Saturation 89.8 % Venous Blood Base Excess -3.1 mEq/L Anion Gap 11.0 mmol/L (3-11) Est Creatinine Clear Calc Drug Dose 14.7 ml/min Estimated GFR () 11.8 Estimated GFR (Non- 10.2 BUN/Creatinine Ratio 7.8 (10-20) Calcium Level 9.1 mg/dl (8.5-10.1) Phosphorus Level 5.6 mg/dl (2.5-4.9) Magnesium Level 2.1 mg/dl (1.8-2.4) Bedside Glucose (other) 158 mg/dl (70-99) 154 mg/dl (70-99) Blood Gas Sample Site Art Line Bedside Blood Gas pH (LAB) 7.34 (7.35-7.45) Bedside Blood Gas pCO2 (LAB) 40 mmHg (35-46) Bedside Blood Gas pO2 (LAB) 64 mmHg (80-95) Bedside Blood Gas HCO3 (LAB) 22 meq/L (19-24) Bedside Blood Gas Total CO2 23 mEq/l (24-31) Bedside Blood Gas Base Excess (LAB) -4.0 meq/L (-9-1.8) Bedside Blood Gas O2 Saturation 91.0 % (90-95) Raciel Test NA Oxygen Delivery Device Ventilator Bedside Oxygen Rate (breaths/min) 20 Blood Gas Minute Ventilation 11 Bedside FiO2 50 % Blood Gas Tidal Volume 600 Blood Gas PEEP 5 Allergies Coded Allergies: No Known Allergies (Unverified , 04/06/17) Medications Current Inpatient Medications Medications (Trade) Dose Ordered Sig/Brennan Route Start Time Stop Time Status Last Admin Dose Admin Amlodipine Besylate (Norvasc Tab) 5 mg QAM PO 04/07/17 09:00 05/07/17 08:59 Future Hold 04/07/17 07:50 5 MG Diphenhydramine HCl (Benadryl Cap) 25 mg Q8H PRN PO 04/07/17 00:00 05/07/17 00:00 Future Hold Metoprolol Succinate (Toprol Xl Tab) 50 mg QPM PO 04/07/17 21:00 05/07/17 20:59 Future Hold 04/07/17 19:47 50 MG Vitamin B Complex/ Vit C/Folic Acid (Nephrocaps) 1 cap DAILY PO 04/07/17 09:00 05/07/17 08:59 Future Hold 04/07/17 07:50 1 CAP Al Hydrox/Mg Hydrox/Simethicone (Maalox Max Susp) 15 ml Q4H PRN PO 04/07/17 00:00 05/07/17 00:00 Magnesium Hydroxide (Milk Of Magnesia Susp) 30 ml Q12H PRN PO 04/07/17 00:00 05/07/17 00:00 Cholestyramine Resin (Questran Powder Light) 4 gm BID@10,22 PO 04/07/17 22:00 05/07/17 21:59 Future Hold Vancomycin HCl (Consult) 1 ea UD PRN N/A 04/07/17 19:15 05/07/17 19:14 Piperacillin Sod/ Tazobactam Sod (Consult) 1 ea UD PRN N/A 04/07/17 19:15 05/07/17 19:14 Artificial Tears (Lacri-Lube Oph Oint) 1 appln Q2H PRN OPB 04/07/17 23:00 05/07/17 22:59 04/08/17 06:14 1 APPLN Buspirone HCl (BusPAR TAB) 60 mg ONE PRN NG 04/07/17 23:00 05/07/17 22:59 Ioversol (Optiray 320) 100 ml UD PRN IV 04/07/17 23:15 04/11/17 23:14 Insulin Aspart (novoLOG ASPART) SLIDING SCALE PCHS SC 04/08/17 08:00 04/10/17 14:00 Insulin Human Regular 250 units/ Sodium Chloride 252.5 ml @ 0 mls/hr DAILY@1130 IV 04/08/17 00:15 04/10/17 14:00 04/09/17 14:26 1.6 MLS/HR Amiodarone HCL/ Dextrose 200 ml @ 16.7 mls/hr [id number] IV 04/08/17 02:30 05/08/17 02:29 04/10/17 02:26 16.7 MLS/HR Pantoprazole Sodium 40 mg/ Syringe 10 ml @ 5 mls/min DAILY@11 IV 04/08/17 11:00 05/08/17 10:59 04/09/17 11:46 5 MLS/MIN Ipratropium [place] (Atrovent Hfa Inhaler) 4 puffs QIDR INH 04/08/17 12:00 05/08/17 11:59 04/10/17 08:00 4 PUFFS Albuterol (Ventolin Hfa Inhaler) 4 puffs QIDR INH 04/08/17 12:00 05/08/17 11:59 04/10/17 08:00 4 PUFFS Miscellaneous Information (Consult Glycemic Management Pharmacy) 1 ea UD PRN N/A 04/08/17 13:45 05/08/17 13:44 Phenylephrine HCl 80 mg/Dextrose 508 ml @ 0 mls/hr Q0M PRN IV 04/08/17 14:45 05/08/17 14:44 04/10/17 07:35 77.9 MLS/HR Heparin Sodium (Porcine) (Heparin 10 Unit/ ml 5 ml Flush) 5 ml PRN PRN FLUSH 04/09/17 00:45 05/09/17 00:44 Acetaminophen 650 mg/Empty Bag 65 ml @ 260 mls/hr Q6H PRN IV 04/09/17 08:45 05/09/17 08:44 Fentanyl Citrate (Fentanyl Inj) 50 mcg Q1H PRN IV 04/09/17 13:15 04/23/17 13:14 Midazolam HCl (Versed Inj) 2 mg Q1H PRN IV 04/09/17 13:15 05/09/17 13:14 Fentanyl Citrate 250 ml @ 0 mls/hr Q0M PRN IV 04/09/17 13:15 04/23/17 13:14 04/09/17 13:48 5 MLS/HR Midazolam HCl 250 ml @ 0 mls/hr Q0M PRN IV 04/09/17 13:30 05/09/17 13:29 04/09/17 13:49 8 MLS/HR Insulin Glargine (Lantus Solostar Pen) 35 units QAM SC 04/11/17 09:00 05/11/17 08:59 Insulin Aspart (novoLOG ASPART) SLIDING SCALE Q6 SC 04/10/17 18:00 05/10/17 17:59 Heparin Sodium (Porcine) (Heparin Sq 5000 Unit/0.5ml) 5,000 unit Q12 SQ 04/10/17 21:00 05/10/17 20:59 Impression (1) Pneumonia (2) Anemia (3) ESRD on hemodialysis (4) Diabetes mellitus (5) Diarrhea Ed is a 81-year-old gentlemen with 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 Admitted to the hospital after he had a fall and fracture of left shoulder, missed dialysis and became volume overloaded. In hospital he had VFib arrest, torsades and resuscitated successfully. He has been intubated, completed hypothermia protocol. Currently he is off of sedation but remained unresponsive, on continuous EEG monitoring. Recommendations -- patient continues to be positive as his getting significant amount of IV fluid with multiple intravenous medications -- Will provide HD today mainly for ultrafiltration. Orders placed in EMR and HD RN notified -- Currently on Vanco / Zosyn -- Required EGD w/ clipping of Dieulafoy lesion 03/11, received 2 units of PRBC with hemodialysis yesterday
[2017-04-10] MEDS: INSULIN REGULAR 250 UNITS in SODIUM CHLORIDE 0.9% 250ML 250 ML IV SCH (12:11)
[2017-04-10] MEDS ORDERED: MAGNESIUM SULFATE 1GM / D5W 1 GM BAG IV ONE (13:25)
[2017-04-10] MEDS ORDERED: SODIUM CHLORIDE 0.9% 10ML FLUSH IV ONE (13:25)
[2017-04-10] MEDS ORDERED: SODIUM CHLORIDE 0.9% 500 ML BAG IV ONE (13:25)
[2017-04-10] MEDS ORDERED: AMIODARONE HCL INJ 50 MG/ML 3 ML VIAL IV ONE (13:25)
[2017-04-10] MEDS ORDERED: SODIUM BICARB 8.4% INJ 50 MEQ/50 ML SYR IV ONE (13:25)
[2017-04-10] MEDS ORDERED: SODIUM CHLORIDE 0.9% 250 ML BAG IV ONE (13:25)
[2017-04-10] MEDS ORDERED: ROCURONIUM BROMIDE 10 MG/ML 10 ML VIAL IV ONE (13:30)
[2017-04-10] MEDS ORDERED: ETOMIDATE 2 MG/ML 20 ML VIAL IV ONE (13:30)
--- NOTE | 2017-04-10 13:37 | Pharmacy Progress Note ---
Glycemic Control Progress Note Date of Service Apr 10, 2017. Scope Glycemic Pharmacist consulted for glycemic control to write orders per [facility] inpatient glycemic control protocol. Objective Accuchecks BSG (last 24hrs): Test 04/10/17 05:23 Random Glucose 157 mg/dl (70-99) Recent Pertinent Medications The patient is currently receiving: * Basal insulin: Lantus 10 units X1 last night * IV Insulin infusion moderate stress protocol * Goal range - 100-180mg/dl Outpatient Anti-Diabetic Meds Basal Insulin Bolus Insulin Assessment & Plan ASSESSMENT: * See progress note from 04/09 for more background info, in short: * Pt receiving IV insulin regimen for hyperglycemia secondary to baseline DM ( outpatient regimen on hold),stress/infection,pressors, dextrose IVF, and mechanical ventilation * Patient is currently receiving an average of 1.6 units/hr on insulin drip of insulin per day * BSGs at goal, transition to basal bolus PLAN FOR INPATIENT GLYCEMIC CONTROL: * Discontinue IV insulin infusion today at 1400 * Basal insulin * Lantus 35 units SQ daily - starting at 1000 (overlap with insulin drip x 6 hours) * Bolus insulin * NovoLog per scale ACHS or Q6hrs while NPO * Goal Range: Low 140 mg/dL - High 180 mg/dL * Correction Factor: 25 mg/dL/unit * Nutritional / Prandial insulin per carb ratio of 1 unit per 10 grams CHO consumed * Please note that the plan above was derived based on current level of insulin resistance and hospital stress. These recommendations are appropriate for inpatient admission only. Plan of care upon discharge will need to be reassessed to avoid potential outpatient hypo/hyperglycemia. Thank you.
[2017-04-10] MEDS ORDERED: AMIODARONE 200 MG TAB PO SCH (14:00)
--- NOTE | 2017-04-10 14:36 | Critical Care Progress Note ---
Critical Care Progress Note Date of Service Apr 10, 2017. Attending Dr. Weller Objective VITAL SIGNS - Vital signs and nursing notes were reviewed. GENERAL - 81-year-old male. Intubated and sedated. EYES - Fixed and very sluggish. EARS - No deformities of external structures noted on gross examination bilaterally. NOSE - Midline and without cyanosis. MOUTH/OROPHARYNX - ET Tube in place. NECK - Supple to palpation. LUNGS - Chest wall symmetric without accessory muscle use, intercostals retractions, or central cyanosis. Decreased breath sounds at the bases bilaterally. CARDIAC - RRR with S1/S2. No murmur, rubs, or gallops appreciated. ABDOMEN - Abdominal contour obese without pulsations or visible masses. BS hypoactive all four quadrants. No palpable masses, hepatosplenomegaly, or ascites noted. NEUROLOGIC - Intubated and Sedated. RASS -5 Current SOFA Score SOFA Score Response (Comments) Value PaO2/FiO2 (mmHg) < 100 4 Platelets (x10) > 150 0 Bilirubin (mg/dL) < 1.2 0 Dumont Coma Score < 6 4 Level of Hypotension Dopamine > 5 mcq or Epi < 0.1 mcq 3 Creatinine (mg/dL) > 5.0 4 Total 15 Assessment & Plan Reason Critically Ill: 81-year-old male admitted to the ICU status post V. fib arrest with ROSC undergoing therapeutic hypothermia. Neuro - * RASS: -5 * Sedated using Fentanyl/Versed. * Versed titrated off this morning, Fentanyl currently at 25mcg * Continuos EEG in place --> Awaiting neuro recommendations Cardiac - * Ventricular Fibrillation Arrest with ROSC: * Rewarmed protocol completed yesterday and now body temp 37.4 * Prolonged QTc: mildly improving. Continue to monitor. --> QTc now 553 * Levaquin replaced with Doxycycline * Continue to trend troponin --> Possibly elevated due to resuscitation efforts * Monitor on telemetry * Convert to PO Amiodarone 400mg PO BID * Severe Aortic Stenosis * ABG: pH 7.34, pCO2 40, pO2 64, HCO3 23 * Transferred out of the ICU to Telemetry Respiratory - * Intubated: * Settings - A/C, Rate 20, FiO2 50, TV 600, PEEP 5 * Multifocal Pneumonia: * Aggressive ventilatory techniques. * Antibiotics described below. * Respiratory Failure: * Continue to trend ABGs for successful ventilation/perfusion. GI - * Starting Peptamin Bariatric @ 10 ml via OG --> Can increase rate tomorrow * Prophylaxis - Protonix. RENAL/LYTES - * Creatinine of 5.0 * Scheduled for dialysis this afternoon * Nephrology on board * Continue to monitor electrolytes - * [place] Catheter ENDO - * Converted to Lantus sq off of the insulin drip * Consult placed to pharmacy for insulin coverage * Received 10 units of Lantus this morning with overlap of insulin drip HEME - * Apparent Chronic Anemia: * Will trend * Transfuse if necessary * Discontinue Heparin drip --> Start Heparin 5,000 units sq BID ID - * Multifocal Pneumonia: * Cultures thus far negative --> Repeat culture today * Vancomycin with Dialysis. * Discontinue Zosyn * Discontinue Doxycycline * Appreciate pharmacy evaluating renal dosing in this patient. LINES/IV ACCESS - * LEFT Femoral CVL * RIGHT Radial Arterial Line * HD Cath DVT PROPHYLAXIS - * DC Heparin Drip * Heparin 5,000 units sq BID dosing * I have personally spent 45 minutes of critical care time in the direct management of this patient. This is a life/limb threatening event. This includes time spent evaluating patient, direct bedside care, chart review, placing orders, interpretation of diagnostic studies, discussion with consultants, patient, and family members, as well as other required patient management activities. This time is exclusive of all separately billable procedures, and teaching time and separate from and in addition to any other critical care service time. The patient has been off sedation and analgesia and is not exhibiting significant clinical responses. Had a discussion with the entire family, they inform me that the patient had previously wanted to be a DO NOT RESUSCITATE in event of cardiac arrest. I do not find documentation of that at this moment, I have reviewed his living will watch does not want life-sustaining measures and end-stage terminal conditions. The family is all in agreement that he is a fiercely independent individual and in only acceptable life to him would be living at home independently able to care for his with Alzheimer's. With that definition I would say with medical certainty the patient is an end-stage terminal condition without chance of meaningful recovery, he would not be able to return to independent living and be able to care for his severely debilitated . The family is all in agreement that they no longer want to proceed with active treatment of any medical conditions, including dialysis, and proceed with a terminal extubation and focus on the patient discomfort during the act of dying process. The patient is still requiring aggressive vasoactive medications to maintain a in adequate blood pressure. At the present moment they're waiting for some additional family to arrive and we will extubate the patient when the entire family is ready to proceed. Consults & Procedures Consultants: Dr. Peraza: Nephrology Dr. Vazquez: Neurology Dr. Cabrera: Cardiology Procedures: RIGHT Radial Arterial Line LEFT Femoral Central Venous Line Data Medications: Current Inpatient Medications Medications (Trade) Dose Ordered Sig/Brennan Route Start Time Stop Time Status Last Admin Dose Admin Amlodipine Besylate (Norvasc Tab) 5 mg QAM PO 04/07/17 09:00 05/07/17 08:59 Future Hold 04/07/17 07:50 5 MG Diphenhydramine HCl (Benadryl Cap) 25 mg Q8H PRN PO 04/07/17 00:00 05/07/17 00:00 Future Hold Metoprolol Succinate (Toprol Xl Tab) 50 mg QPM PO 04/07/17 21:00 05/07/17 20:59 Future Hold 04/07/17 19:47 50 MG Vitamin B Complex/ Vit C/Folic Acid (Nephrocaps) 1 cap DAILY PO 04/07/17 09:00 05/07/17 08:59 Future Hold 04/07/17 07:50 1 CAP Al Hydrox/Mg Hydrox/Simethicone (Maalox Max Susp) 15 ml Q4H PRN PO 04/07/17 00:00 05/07/17 00:00 Magnesium Hydroxide (Milk Of Magnesia Susp) 30 ml Q12H PRN PO 04/07/17 00:00 05/07/17 00:00 Cholestyramine Resin (Questran Powder Light) 4 gm BID@ PO 04/07/17 22:00 05/07/17 21:59 Future Hold Vancomycin HCl (Consult) 1 ea UD PRN N/A 04/07/17 19:15 05/07/17 19:14 Piperacillin Sod/ Tazobactam Sod (Consult) 1 ea UD PRN N/A 04/07/17 19:15 05/07/17 19:14 Artificial Tears (Lacri-Lube Oph Oint) 1 appln Q2H PRN OPB 04/07/17 23:00 05/07/17 22:59 04/08/17 06:14 1 APPLN Buspirone HCl (BusPAR TAB) 60 mg ONE PRN NG 04/07/17 23:00 05/07/17 22:59 Ioversol (Optiray 320) 100 ml UD PRN IV 04/07/17 23:15 04/11/17 23:14 Amiodarone HCL/ Dextrose 200 ml @ 16.7 mls/hr [id number] IV 04/08/17 02:30 05/08/17 02:29 04/10/17 12:38 16.7 MLS/HR Pantoprazole Sodium 40 mg/ Syringe 10 ml @ 5 mls/min DAILY@11 IV 04/08/17 11:00 05/08/17 10:59 04/10/17 11:13 5 MLS/MIN Ipratropium [place] (Atrovent Hfa Inhaler) 4 puffs QIDR INH 04/08/17 12:00 05/08/17 11:59 04/10/17 11:38 4 PUFFS Albuterol (Ventolin Hfa Inhaler) 4 puffs QIDR INH 04/08/17 12:00 05/08/17 11:59 04/10/17 11:38 4 PUFFS Miscellaneous Information (Consult Glycemic Management Pharmacy) 1 ea UD PRN N/A 04/08/17 13:45 05/08/17 13:44 Phenylephrine HCl 80 mg/Dextrose 508 ml @ 0 mls/hr Q0M PRN IV 04/08/17 14:45 05/08/17 14:44 04/10/17 13:38 77.9 MLS/HR Heparin Sodium (Porcine) (Heparin 10 Unit/ ml 5 ml Flush) 5 ml PRN PRN FLUSH 04/09/17 00:45 05/09/17 00:44 Acetaminophen 650 mg/Empty Bag 65 ml @ 260 mls/hr Q6H PRN IV 04/09/17 08:45 05/09/17 08:44 Fentanyl Citrate (Fentanyl Inj) 50 mcg Q1H PRN IV 04/09/17 13:15 04/23/17 13:14 Midazolam HCl (Versed Inj) 2 mg Q1H PRN IV 04/09/17 13:15 05/09/17 13:14 Fentanyl Citrate 250 ml @ 0 mls/hr Q0M PRN IV 04/09/17 13:15 04/23/17 13:14 04/09/17 13:48 5 MLS/HR Midazolam HCl 250 ml @ 0 mls/hr Q0M PRN IV 04/09/17 13:30 05/09/17 13:29 04/09/17 13:49 8 MLS/HR Insulin Glargine (Lantus Solostar Pen) 35 units QAM SC 04/11/17 09:00 05/11/17 08:59 Insulin Aspart (novoLOG ASPART) SLIDING SCALE Q6 SC 04/10/17 18:00 05/10/17 17:59 Heparin Sodium (Porcine) (Heparin Sq 5000 Unit/0.5ml) 5,000 unit Q12 SQ 04/10/17 21:00 05/10/17 20:59 Amiodarone HCl (Cordarone Tab) 400 mg BID PO 04/10/17 14:00 05/10/17 13:59 04/10/17 13:57 400 MG Vital Signs: Date Time Temp Pulse Resp B/P (MAP) Pulse Ox O2 Delivery O2 Flow Rate FiO2 04/10/17 12:00 96 Mechanical Ventilator 50 04/10/17 12:00 50 04/10/17 12:00 37.0 69 20 83/43 (56) 96 Mechanical Ventilator 50 99/40 (59) 04/10/17 11:37 50 04/10/17 10:00 37.4 76 22 127/65 (85) 93 Mechanical Ventilator 50 04/10/17 08:00 50 04/10/17 08:00 94 Mechanical Ventilator 50 04/10/17 08:00 37.4 78 20 129/64 (85) 94 Mechanical Ventilator 50 125/45 (71) 04/10/17 07:28 50 04/10/17 06:01 37.4 80 25 125/45 (71) 94 04/10/17 06:01 50 04/10/17 06:00 37.4 80 24 122/45 (70) 94 04/10/17 05:01 37.3 78 22 129/48 (75) 93 04/10/17 05:00 37.3 77 21 123/47 (72) 93 04/10/17 04:45 50 04/10/17 04:04 50 04/10/17 04:04 96 Mechanical Ventilator 50 04/10/17 04:01 37.3 78 21 125/46 (72) 93 04/10/17 04:00 37.3 78 21 122/45 (70) 93 04/10/17 03:01 37.1 77 20 126/46 (72) 93 04/10/17 03:00 37.1 77 21 123/45 (71) 93 04/10/17 02:01 37.1 76 22 126/47 (73) 93 04/10/17 02:00 37.1 76 21 118/46 (70) 93 04/10/17 01:19 50 04/10/17 01:01 37.0 74 20 128/48 (74) 97 04/10/17 01:00 74 20 120/46 (70) 97 04/10/17 00:36 50 04/10/17 00:36 96 Mechanical Ventilator 50 04/10/17 00:00 71 20 108/56 (73) 97 04/09/17 23:52 72 20 80/45 (57) 98 04/09/17 23:01 36.4 77 11 129/52 (77) 96 04/09/17 23:00 36.4 74 20 117/45 (69) 97 04/09/17 22:29 50 04/09/17 22:01 36.3 74 20 113/42 (65) 93 04/09/17 22:00 36.3 74 20 112/42 (65) 94 04/09/17 21:01 36.2 74 20 113/44 (67) 97 04/09/17 21:00 36.2 74 20 113/44 (67) 97 04/09/17 20:00 50 04/09/17 20:00 96 Mechanical Ventilator 50 04/09/17 19:01 36.3 75 20 133/47 (75) 97 04/09/17 19:00 36.3 75 20 127/46 (73) 96 04/09/17 18:19 50 04/09/17 17:15 36.5 76 20 111/42 (65) 96 04/09/17 17:01 36.4 77 21 123/44 (70) 96 04/09/17 17:00 36.5 77 22 124/45 (71) 96 04/09/17 16:45 36.5 77 21 142/50 (80) 97 04/09/17 16:30 36.4 81 26 156/55 (88) 96 04/09/17 16:15 81 28 136/46 (76) 93 Mechanical Ventilator 50 04/09/17 16:01 80 26 142/54 (83) 95 Mechanical Ventilator 50 04/09/17 16:00 96 Mechanical Ventilator 50 04/09/17 16:00 50 04/09/17 16:00 78 23 137/51 (79) 96 Mechanical Ventilator 50 04/09/17 15:45 77 24 135/51 (79) 96 Mechanical Ventilator 50 04/09/17 15:36 50 04/09/17 15:30 80 24 143/54 (83) 95 Mechanical Ventilator 50 04/09/17 15:15 80 148/52 (84) 04/09/17 15:15 77 23 148/52 (84) 96 Mechanical Ventilator 50 04/09/17 15:01 81 26 141/54 (83) 95 Mechanical Ventilator 50 04/09/17 15:00 81 29 139/54 (82) 96 Mechanical Ventilator 50 04/09/17 14:43 83 80/40 04/09/17 14:30 84 68/37 04/09/17 14:30 84 26 68/37 (47) 90 Mechanical Ventilator 50 04/09/17 14:15 89 28 95/44 (61) 100 Mechanical Ventilator 50 04/09/17 14:15 89 95/44 Laboratory Results: Last 24 Hours Test 04/09/17 14:23 04/09/17 15:19 04/09/17 17:37 04/09/17 19:32 Bedside Glucose (other) 115 mg/dl 120 mg/dl 138 mg/dl 146 mg/dl Test 04/09/17 20:09 04/09/17 21:32 04/09/17 23:18 04/10/17 02:24 Random Vancomycin Level 14.0 mcg/ml Bedside Glucose (other) 153 mg/dl 156 mg/dl 153 mg/dl Test 04/10/17 05:23 04/10/17 05:29 04/10/17 08:29 04/10/17 10:18 White Blood Count 19.56 K/uL Red Blood Count 3.15 M/uL Hemoglobin 9.2 g/dL Hematocrit 27.6 % Mean Corpuscular Volume 87.6 fL Mean Corpuscular Hemoglobin 29.2 pg Mean Corpuscular Hemoglobin Concent 33.3 g/dl RDW Standard Deviation 53.2 fL RDW Coefficient of Variation 16.7 % Platelet Count 208 K/uL Mean Platelet Volume 10.9 fL Nucleated RBC Absolute Count (auto) 0.15 K/uL Nucleated Red Blood Cells % 0.8 % Venous Blood pH 7.34 Venous Blood Partial Pressure CO2 42 mmHg Venous Blood Partial Pressure O2 67 mmHg Venous Blood HCO3 22 mmol/L Venous Blood Oxygen Saturation 89.8 % Venous Blood Base Excess -3.1 mEq/L Sodium Level 128 mmol/L Potassium Level 4.0 mmol/L Chloride Level 94 mmol/L Carbon Dioxide Level 23 mmol/L Anion Gap 11.0 mmol/L Blood Urea Nitrogen 39 mg/dl Creatinine 5.00 mg/dl Est Creatinine Clear Calc Drug Dose 14.7 ml/min Estimated GFR () 11.8 Estimated GFR (Non- 10.2 BUN/Creatinine Ratio 7.8 Random Glucose 157 mg/dl Calcium Level 9.1 mg/dl Phosphorus Level 5.6 mg/dl Magnesium Level 2.1 mg/dl Bedside Glucose (other) 158 mg/dl 154 mg/dl Blood Gas Sample Site Art Line Bedside Blood Gas pH (LAB) 7.34 Bedside Blood Gas pCO2 (LAB) 40 mmHg Bedside Blood Gas pO2 (LAB) 64 mmHg Bedside Blood Gas HCO3 (LAB) 22 meq/L Bedside Blood Gas Total CO2 23 mEq/l Bedside Blood Gas Base Excess (LAB) -4.0 meq/L Bedside Blood Gas O2 Saturation 91.0 % Rcaiel Test NA Oxygen Delivery Device Ventilator Bedside Oxygen Rate (breaths/min) 20 Blood Gas Minute Ventilation 11 Bedside FiO2 50 % Blood Gas Tidal Volume 600 Blood Gas PEEP 5 Test 04/10/17 11:25 Bedside Glucose (other) 131 mg/dl Resident Tracking Resident Involvement: Resident Care Provided Care Provided: Adult Hospital Medicine
[2017-04-10] MEDS ORDERED: LORAZEPAM 2 MG/ML 1 ML VIAL IV PRN (16:00)
[2017-04-10] MEDS ORDERED: MoRPHine SULFATE 2 MG/ML CARP IV PRN (17:55)
[2017-04-10] MEDS ORDERED: INSULIN ASPART 100 UNITS/ML 3 ML PEN SC SCH (18:00)
[2017-04-10] MEDS ORDERED: HEPARIN SOD 5000 UNIT/0.5 ML CARP SQ SCH (21:00)
[2017-04-11] MEDS ORDERED: INSULIN GLARGINE SOLOSTAR 100 UNITS/ML 3 ML PEN SC SCH (09:00)
--- NOTE | 2017-04-11 17:43 | EEG Procedure Note ---
EEG Procedure Note Date of Service Apr 10, 2017. Start / End Times Start Time: 04/09/2017 at 17:21 PM End Time: 04/10/2017 at 15:[address] Weller History This is a 81-year-old male with in-hospital cardiac arrest and hypothermia protocol. Continuous video EEG monitoring per hypothermia protocol to monitor for subclinical seizures. Home Medication List Scheduled Amlodipine Besylate (Norvasc), 5 MG PO QAM Aspirin (Aspir-81), 81 MG PO QAM Hydrocortisone (Topical) (Hydrocortisone), 1 APPLN EXT BID Insulin Aspart (Novolog Flexpen), 18 UNITS SC QAM Insulin Aspart (Novolog Flexpen), 19 UNITS SQ LUNCH Insulin Aspart (Novolog Flexpen), 22 UNITS SQ QPM Insulin Glargine (Lantus Solostar), 30-35 UNITS SQ HS Lidocaine-Prilocaine (Larhfkbxo-Dhgcowiamq-Wtgn 2.5-2.5 %), 1 APPLN TOP UD Metoprolol Succinate (Metoprolol Succinate ER), 50 MG PO QPM Ocuvite Preservision (Ocuvite Preservision), 2 TABS PO DAILY Ranitidine (Zantac), 150 MG PO HS Sodium Bicarbonate (Antacid) (Sodium Bicarbonate), 650 MG PO BIDM Vitamin B Cmplx/Vitc/Folic Ac (Nephrocaps), 1 CAP PO DAILY Scheduled PRN Diphenhydramine Hcl (Benadryl Allergy), 1 CAP PO every 12 hours PRN for itching Oxycodone/Acetaminophen 5MG/325MG (Percocet 5MG/325MG), 1-2 TABLETS PO Q8 PRN for Pain Description This is a 21 electrode video EEG with a single channel dedicated to limited EKG. The electrodes were placed in accordance with the International 10-20 system. Post processing with an event detection algorithm is applied to the continuous data collection for the purpose of identifying abnormal epochs. These detections are reviewed and all candidate seizures are processed for further analysis. Data is reviewed in its raw format and patient events are processed, edited and stored. At the start of this recording the patient was intubated, in altered mental status, in the ICU. Background was poorly organized and there was no anterior to posterior gradient. Background was composed of predominantly symmetric moderate amplitude 5-7 Hz theta frequencies with intermixed delta and alpha frequencies. There was variability. There was no state changes or sleep transients. Interpretation This is an abnormal continuous video EEG secondary to moderate background disorganization and slowing. There was no electrographic seizures or epileptiform discharges. Clinical Correlation This EEG indicates moderate encephalopathy of nonspecific etiology. Hypothermia and sedating medications can contribute to encephalopathy.
--- NOTE | 2017-04-18 22:03 | Death Summary ---
Summary of Admission Date Apr 06, 2017 at 23:54 Date & Time of Apr 10, 2017. 18:33 Cause of NSTEMI,Cardiogenic shock Secondary Diagnoses RLL HCAP ESRD on HD Recent fall with left proximal humerus fracture Ankylosing spondylitis DM II with hyperglycemia HTN HLD Mesenteric ischemia Chronic post-prandial diarrhea Anemia of chronic disease Sustained Ventricular tachycardia Ventricular fibrillation Multiple rib fractures Pulmonary edema Mid sternal fracture Leukocytosis Prolonged QT Metabolic acidosis/Lactic acidosis Decompensated acute left ventricular systolic CHF Cardiogenic shock requiring vasopressors Severe aortic stenosis Acute on chronic anemia of chronic disease Left chest wall pain, demand ischemia Chronic diastolic CHF Biliary dyskinesia with chronic diarrhea Chronic abdominal pain Hypokalemia Hospital Course This patient is a 81 y/o male with a history of ESRD on HD, recent fall with left proximal humerus fracture, ankylosing spondylitis, DM II, HTN, HLD, mesenteric ischemia, biliary dyskinesia, chronic post-prandial diarrhea, and anemia of chronic disease who presents to the ED on 04/06 with worsening shortness of breath. The patient had a recent fall on 04/01 and has had significant pain as a result, causing him to miss his last 2 dialysis treatments. CXR showed RLL pneumonia. He was initially treated with Levaquin for his PNA which was then changed to Vancomycin and Zosyn to cover for HCAP given recent admission previously. He complained of constant left sided rib pain that was exquisitely tender on palpation and had been ongoing since his recent fall. His troponin was mildly elevated but trended from 0.9->1.0->0.9 in the first day of admission, was thought to be possibly from demand ischemia in setting of ESRD and PNA. He unfortunately went into a PEA arrest on the second evening of his admission for unclear reasons. His initial rhythm was sinus tachycardia when he lost his pulse, which then later transformed into VT/VF. His electrolytes had been stable prior to arrest. V-tach/v-fib, Cardiac arrest--> unclear etiology. Profound lactic acidosis and NSTEMI occurred but seemed to likely be as a result of prolonged hypotension and hypoxia perhaps during the arrest. -Pt had a code blue around 2100 on 04/07. Runs of VT and VF, shocked 4 times. Pt intubated, transferred to ICU and placed on code arctic after ROSC. Management per ICU -placed on Amiodarone drip - EKG shows sinus rhythm with PACs, LAFB and RBBB which the RBBB was new after the arrest -Troponin initially stable following code, but elevated to 84 later -Head CT showed no acute disease -CXR shows bilateral opacities consistent with PNA, multiple rib fractures and pulmonary edema -CTA chest shows consolidations bilaterally consistent with multifocal PNA, negative for PE. Multiple rib fractures and mid sternal fracture (after CPR). Left humeral neck fracture. Evidence of pulmonary edema -Neuro consulted due to code arctic and had continuous EEG-->abnormal due to background disorganization and slowing. No evidence of seizure or epileptiform discharges -Weaned off sedation and had no meaningful response to stimuli after warmed back to normal temperature -was requiring ongoing pressor support while intubated after cardiac arrest -family knew pt's desire was to not have prolonged life-saving measures in this circumstance and desired to terminally extubate after which he quickly passed RLL HCAP, acute respiratory failure-- -Admit to telemetry initially. Transferred to ICU 04/07. Intubated during cardiac arrest. -Blood cultures no growth at time of . Pt received 1 dose of Levaquin prior -D/C'd Levaquin due to prolonged QT (only 1 dose given in ER) -Continue IV Vancomycin and Zosyn for HCAP coverage -Started doxycycline 100 mg IV BID -Leukocytosis worsening after arrest but had been improving prior to that. 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 Then after arrest, went up to 84 and clearly had NSTEMI - EKG 04/07 shows 103 bpm, sinus tachycardia with occasional PVC -Consult cardiology, appreciate recs -ECHO with moderately reduced LV function, WMAs, unclear if new or old The mechanism is unclear. EKG did not suggest acute injury, but he undoubtedly had an element of injury likely due to a period of hypoxia and hypotension. He was started on heparin infusion x 48 hrs prior to discontinuing prior to terminal extubation Severe aortic stenosis-Cardiology did not feel this played a role in his arrest Acute on chronic anemia of chronic disease. No gross bleeding during hospitalization -Baseline hemoglobin 10-11 -Hgb 8.9 on admission -Recent Dieulafoy lesion found on EGD 03/22/17 in the upper stomach which was clipped -was given IV Protonix -Repeat Hgb 7.4 on 04/08 -D/C'd aspirin -was transfused 2 units PRBCs after arrest ESRD on HD, fluid overload--pt missed 2 dialysis treatments. Pt on / schedule -received IV lasix and HD during hospitalization Recent fall, left proximal humeral fracture -in sling DM II with hyperglycemia post-arrest--last HgbA1c on 01/25/17 was 7.4 -Lantus d/c'd -Insulin drip commenced HTN--pt became hypotensive after arrest, Cardiogenic shock, was requiring pressor support -Toprol and Norvasc d/c'd Copy To Reji Cameron M.D.
--- NOTE | 2017-04-22 10:51 | Procedure Note ---
Procedure Note Date of Service Apr 08, 2017. Delayed Chart entry Procedure Note Procedure date: 04/08/17 Procedure: fiberoptic bronchoscopy Pre-procedure Diagnosis: acute respiratory failure, s/p cardiac arrest Post-procedure Diagnosis: same as above Prior to Procedure: Informed Consent: The risks, benefits, indications, potential complications, and alternatives were not explained to the patient/family and informed consent obtained. Emergency consent implied Attending Staff: Zara Weller DO Resident/APC: Brianna Quigley Skin Prep: Not applicable Anesthesia: versed Indications: Patient required emergent intubation for cardiac arrest. Patient has been admitted for possible pneumonia. The identity of the patient was confirmed and a bedside time out was performed. Description of Procedure: Fiberoptic bronchoscopy was performed via endotracheal tube. Bronchioalveolar lavage of the right middle lobe was performed. Findings included: small mucopurulent secretions. Complications: None Specimens: Bronchial washings sent for culture and Gram stain, cytology, fungal elements, and AFB stain and culture. Estimated blood loss: Zero
== END 2017-04-10 20:41 | disposition expired | DRG 166 ==
LOC: C.EDB 20:53 → C.2T 23:54 → ENRESERV 04-07 02:03 → C.MSICU 04-07 21:58
PROVIDERS: ADMIT Internal Medicine; ATTEND Family Medicine
PROC: 5A1945Z Respiratory Ventilation, 24-96 Consecutive Hours (ICD-10-PCS; 2017-04-07)
PROC: 0BH17EZ Insertion of Endotracheal Airway into Trachea, Via Natural or Artificial Opening (ICD-10-PCS; 2017-04-07)
PROC: 03HB33Z Insertion of Infusion Device into Right Radial Artery, Percutaneous Approach (ICD-10-PCS; 2017-04-07)
PROC: 0B9D8ZX Drainage of Right Middle Lung Lobe, Via Natural or Artificial Opening Endoscopic, Diagnostic (ICD-10-PCS; principal; 2017-04-08)
DX: J18.9 Pneumonia, unspecified organism (principal); N18.6 End stage renal disease; J96.01 Acute respiratory failure with hypoxia; I50.23 Acute on chronic systolic (congestive) heart failure; I21.4 Non-ST elevation (NSTEMI) myocardial infarction; E87.2 Acidosis; Z51.5 Encounter for palliative care; I24.8 Other forms of acute ischemic heart disease; I13.2 Hypertensive heart and chronic kidney disease with heart failure and with stage 5 chronic kidney disease, or end stage renal disease; I50.32 Chronic diastolic (congestive) heart failure; I46.2 Cardiac arrest due to underlying cardiac condition; R57.0 Cardiogenic shock; I49.01 Ventricular fibrillation; R19.7 Diarrhea, unspecified; D64.9 Anemia, unspecified; E11.65 Type 2 diabetes mellitus with hyperglycemia; E11.22 Type 2 diabetes mellitus with diabetic chronic kidney disease; E11.21 Type 2 diabetes mellitus with diabetic nephropathy; I70.0 Atherosclerosis of aorta; E11.319 Type 2 diabetes mellitus with unspecified diabetic retinopathy without macular edema; E66.9 Obesity, unspecified; F17.200 Nicotine dependence, unspecified, uncomplicated; Z51.81 Encounter for therapeutic drug level monitoring; Z79.899 Other long term (current) drug therapy; Z79.4 Long term (current) use of insulin; Z79.82 Long term (current) use of aspirin; Z66 Do not resuscitate; Z87.19 Personal history of other diseases of the digestive system; Z91.81 History of falling; Z99.2 Dependence on renal dialysis; Z68.36 Body mass index [BMI] 36.0-36.9, adult